=== PATIENT | female | born 1965 | race Caucasian/White ===

== ENCOUNTER 2017-09-27 13:54 | Outpatient (RCR) | payer SELFPAY | END 2017-10-21 23:59 | disposition home or self-care (01) | LOC: CR 13:54 | PROVIDERS: PCP Family Medicine; Visit Provider Family Medicine | DX: Z51.89 Encounter for other specified aftercare (principal) ==

== ENCOUNTER → 2017-10-05 00:27 | Outpatient (CLI) | payer MEDICARE, SELFPAY ==
--- NOTE | 2017-10-05 07:21 | DI.REPORT_ITS ---
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 Significant portions of the liver are nonvisualized. Liver is of increased echogenicity raising the possibility of hepatic steatosis. No focal lesion identified. Portal venous flow is normo-directional. The patient has had a previous cholecystectomy. No biliary dilatation is seen. The pancreas is not well visualized. Kidneys are grossly unremarkable in appearance. Abdominal aorta and IVC are unremarkable as visualized. CONCLUSION: Limited study. Probable hepatic steatosis. No other significant abnormality seen.
[2017-10-05 08:28] LABS: Prothrombin Time 9.9 sec (9.3-10.8)
[2017-10-05 08:41] LABS: Hemoglobin A1C 8.6 % (4.5-6.2)
[2017-10-05 09:24] LABS: ALT 38 U/L (12-78); AST 34 U/L (15-37); Albumin 3.7 g/dL (3.4-5.0); Alkaline Phosphatase 105 U/L (46-116); Anion Gap 12.4 mmol/L (3-11); BUN 8 mg/dL (7-18); Bilirubin, Direct 0.13 mg/dL (0.00-0.20); Bilirubin, Total 0.5 mg/dL (0.2-1.0); CO2 25.6 mmol/L (21.0-32.0); CREATININE 1.11 mg/dL (0.55-1.02); Calcium 9.2 mg/dL (8.5-10.1); Chloride 103 mmol/L (98-107); Estimated GFR 51.82 (mL/min/1.73m2); Glucose 145 mg/dL (70-100); Potassium 4.2 mmol/L (3.5-5.1); Sodium 141 mmol/L (136-145); Total Protein 6.8 g/dL (6.4-8.2)
[2017-10-07 11:19] LABS: AFP Tumor Marker <2.0 ng/mL (<8.1)
== END ==
PROVIDERS: PCP Family Medicine; Visit Provider Internal Medicine Gastroenterology
DX: E11.9 Type 2 diabetes mellitus without complications (principal); K74.60 Unspecified cirrhosis of liver; K76.0 Fatty (change of) liver, not elsewhere classified; R94.5 Abnormal results of liver function studies
CPT/HCPCS: 76700; 36415; 80048; 80076; 82105; 83036; 85610

== ENCOUNTER 2017-10-24 14:40 | Outpatient (RCR) | payer SELFPAY | END 2017-11-20 23:59 | disposition home or self-care (01) | LOC: CR 14:40 | PROVIDERS: PCP Family Medicine; Visit Provider Family Medicine | DX: Z51.89 Encounter for other specified aftercare (principal) ==

== ENCOUNTER 2017-11-21 14:37 | Outpatient (RCR) | payer SELFPAY | END 2017-12-21 23:59 | disposition home or self-care (01) | LOC: CR 14:37 | PROVIDERS: PCP Family Medicine; Visit Provider Family Medicine | DX: Z51.89 Encounter for other specified aftercare (principal) ==

== ENCOUNTER 2017-12-22 05:14 | Outpatient (RCR) | payer SELFPAY | END 2018-01-20 23:59 | disposition home or self-care (01) | LOC: CR 05:14 | PROVIDERS: PCP Family Medicine; Visit Provider Family Medicine | DX: Z51.89 Encounter for other specified aftercare (principal) ==

== ENCOUNTER 2017-12-30 07:58 | Outpatient (CLI) | payer MEDICARE, SELFPAY ==
[2017-12-30 09:36] LABS: Hemoglobin A1C 7.7 % (4.5-6.2)
== END 2017-12-30 08:18 ==
PROVIDERS: PCP Family Medicine; Visit Provider Family Medicine
DX: E11.9 Type 2 diabetes mellitus without complications (principal)
CPT/HCPCS: 36415; 83036

== ENCOUNTER 2018-01-06 09:19 | Outpatient (RCR) | payer MEDICARE, SELFPAY ==
--- NOTE | 2018-01-06 09:23 | COCO.CNN ---
Primary Reason for Visit Financial Referral to Care Coordination Referral to Care Coordination: No Referral to Services: Yes Where and Who: [facility]/ [employer] - Referral From Referral From: Self Care Plan - Plan of Care Assessment/Background: Patient walk into [email or web address] for financial support. Connected with [facility] [employer] also. Supported paient in completing [employer] release/forms. Discussion included patient connecting with [employer] for further supports. [employer] release completed. Plan of Care: Sun plans on presenting patient at [employer]. Patient plans to connect with [employer] on [employer] and notify them that S[employer] has completed [employer] release/forms and plans to present.
--- NOTE | 2018-01-06 10:18 | PDOC.CNN_ITS ---
Primary Reason for Visit Financial Referral to Care Coordination Referral to Care Coordination: No Referral to Services: Yes Where and Who: on license of [facility]/ [employer] - Referral From Referral From: Self Care Plan - Plan of Care Assessment/Background: Patient walk into [employer] for financial support. Connected with [facility] [employer] also. Supported paient in completing [employer] release/ forms. Discussion included patient connecting with [employer] for further supports. [employer] release completed. Plan of Care: Sun plans on presenting patient at [employer]. Patient plans to connect with [employer] [facility] [employer] and notify them that S[employer]HIR has completed [employer] release/forms and plans to present.
== END 2018-01-20 23:59 | disposition home or self-care (01) ==
LOC: COCO 09:19
PROVIDERS: PCP Family Medicine; Visit Provider Family Medicine
DX: R69 Illness, unspecified (principal)

== ENCOUNTER 2018-01-21 04:23 | Outpatient (RCR) | payer SELFPAY ==
--- NOTE | 2018-02-11 10:21 | PR3E_ITS ---
52 year old female who joined the maintenance phase of pulmonary rehabilitation after completing the phase 2 program in December 2016. The patient came from December 2016- September 2017. Attempt to reach patient for follow up was unsuccessful. Will assist patient in re-enrolling in the program and obtaining proper referrals in the future should she want to return.
== END 2018-02-20 23:59 ==
LOC: CR 04:23
PROVIDERS: PCP Family Medicine; Visit Provider Family Medicine
DX: Z51.89 Encounter for other specified aftercare (principal)

== ENCOUNTER 2018-03-07 00:14 | Outpatient (CLI) | payer MEDICARE, MEDICAID, SELFPAY ==
[2018-03-07 08:45] LABS: Hemoglobin A1C 7.8 % (4.5-6.2)
--- NOTE | 2018-03-07 09:10 | DI.US_ITS ---
SYMPTOM/DIAGNOSIS: F/U CIRRHOSIS, K74.60 AND ABNL LIVER FUNCTION STUDY, R94.5 ABDOMEN ULTRASOUND: Comparison is made with 10/05/17. The liver measures 15 cm. in length, decreasing when compared with the previous exam. The liver now shows only slight increased echogenicity, with improvement when compared with the previous exam. No focal liver lesions or biliary dilatation is seen. The patient is status post cholecystectomy. The spleen, kidneys and aorta are unremarkable. No ascites is seen. IMPRESSION: Mild fatty infiltration of the liver with some improvement when compared with 09/2017.
[2018-03-07 09:43] LABS: ALT 28 U/L (12-78); AST 23 U/L (15-37); Albumin 3.8 g/dL (3.4-5.0); Alkaline Phosphatase 128 U/L (46-116); Anion Gap 11.8 mmol/L (3-11); BUN 11 mg/dL (7-18); Bilirubin, Direct 0.12 mg/dL (0.00-0.20); Bilirubin, Total 0.5 mg/dL (0.2-1.0); CO2 28.2 mmol/L (21.0-32.0); Chloride 101 mmol/L (98-107); Estimated GFR 47.36 (mL/min/1.73m2); Glucose 142 mg/dL (70-100); Potassium 4.7 mmol/L (3.5-5.1); Sodium 141 mmol/L (136-145); Total Protein 7.1 g/dL (6.4-8.2)
[2018-03-07 09:52] LABS: GGT 64 U/L (5-55)
[2018-03-08 15:39] LABS: AFP Tumor Marker 3.5 ng/mL (<8.1)
== END 2018-03-07 00:34 ==
PROVIDERS: PCP Family Medicine; Visit Provider Internal Medicine Gastroenterology
DX: E11.9 Type 2 diabetes mellitus without complications (principal); K74.60 Unspecified cirrhosis of liver; R94.5 Abnormal results of liver function studies; K76.0 Fatty (change of) liver, not elsewhere classified
CPT/HCPCS: 36415; 80048; 80076; 76700; 82105; 82977; 83036

== ENCOUNTER 2018-04-11 18:37 | Outpatient (CLI) | payer MEDICARE, MEDICAID, SELFPAY ==
--- NOTE | 2018-04-11 12:15 | DI.RAD_ITS ---
SYMPTOM/DIAGNOSIS: URI, ? PNEUMONIA FRONTAL AND LATERAL CHEST: Comparison is made with 05/15/17. Heart size and pulmonary vasculature are within normal limits. Sternal wires are in place. The lungs are clear. No effusions or pneumothoraces are identified. Degenerative changes are seen in the spine. IMPRESSION: No acute pulmonary process.
== END 2018-04-11 18:57 ==
PROVIDERS: PCP Family Medicine; Visit Provider Family Medicine
DX: J06.9 Acute upper respiratory infection, unspecified (principal)
CPT/HCPCS: 71046

== ENCOUNTER 2018-04-26 14:40 | Outpatient (CLI) | payer MEDICARE, MEDICAID, SELFPAY ==
--- NOTE | 2018-04-26 15:45 | DI.RAD_ITS ---
SYMPTOM/DIAGNOSIS: LLQ PAIN, CIRRHOSIS OF LIVER, R10.32, K74.60 FLAT AND UPRIGHT ABDOMEN: Comparison is made with 04/11/18. The visualized lung bases are clear. Sternal wires are in place. There are surgical clips in the right upper quadrant of the abdomen. This likely reflects prior cholecystectomy. The bowel gas pattern is nonspecific. There is a normal amount of stool in the colon. No evidence of bowel obstruction is seen. No organomegaly or pneumoperitoneum is seen. No acute osseous abnormality is identified. IMPRESSION: No evidence of an acute abdomen.
== END 2018-04-26 15:00 ==
PROVIDERS: PCP Family Medicine; Visit Provider Internal Medicine Gastroenterology
DX: R10.32 Left lower quadrant pain (principal); K74.60 Unspecified cirrhosis of liver
CPT/HCPCS: 74019

== ENCOUNTER 2018-05-17 12:14 | Outpatient (RCR) | payer SELFPAY | END 2018-05-21 23:59 | disposition home or self-care (01) | LOC: CR 12:14 | PROVIDERS: PCP Family Medicine; Visit Provider Family Medicine | DX: Z51.89 Encounter for other specified aftercare (principal) ==

== ENCOUNTER 2018-05-23 09:07 | Outpatient (RCR) | payer SELFPAY ==
--- NOTE | 2018-05-23 09:09 | COCO.CNN ---
Primary Reason for Visit Medical/Dental/Vision Referral to Care Coordination Referral to Care Coordination: No Referral to Services: Yes Where and Who: PULM REHAB - Referral From Referral From: Self Care Plan - Plan of Care Assessment/Background: Completed health scholarship form for Pulmonary Rehab. Contacted Elvia in [employer] who informed me she already had 100% finacial assistance. [facility] Self Management Plan Complete?: Yes Self Management Goals: Breath better, lose weight, and feel better Confidence Level (enter 1-10): 8 Action Plan/Progress: attend Pulmonary rehab
== END 2018-06-20 23:59 | disposition home or self-care (01) ==
LOC: COCO 09:07
PROVIDERS: PCP Family Medicine; Visit Provider Family Medicine
DX: R69 Illness, unspecified (principal)

== ENCOUNTER 2018-06-13 08:58 | Outpatient (RCR) | payer SELFPAY ==
--- NOTE | 2018-06-13 08:59 | COCO.CNN ---
Primary Reason for Visit Transportation (requesting gas card) Referral to Care Coordination Referral to Care Coordination: No Referral to Services: No - Referral From Referral From: Self Care Plan - Plan of Care Assessment/Background: client was walk in to [facility]; went to [facility] appt. yesterday and requesting gas card; has had more trips to and Pul. Rehab. CHW reviewed gas cards requests. Client can request in future prior to appt and if cards are available. Plan of Care: client will ask family/ friend for assistance for this request.
--- NOTE | 2018-06-13 09:05 | PDOC.CNN_ITS ---
Primary Reason for Visit Transportation (requesting gas card) Referral to Care Coordination Referral to Care Coordination: No Referral to Services: No - Referral From Referral From: Self Care Plan - Plan of Care Assessment/Background: client was walk in to [facility]; went to [facility] appt. yesterday and requesting gas card; has had more trips to and Pul. Rehab. CHW reviewed gas cards requests. Client can request in future prior to appt and if cards are available. Plan of Care: client will ask family/ friend for assistance for this request.
== END 2018-06-20 23:59 | disposition home or self-care (01) ==
LOC: COCO 08:58
PROVIDERS: PCP Family Medicine; Visit Provider Family Medicine
DX: R69 Illness, unspecified (principal)

== ENCOUNTER 2018-06-20 11:00 | Outpatient (RCR) | payer SELFPAY ==
--- NOTE | 2018-05-23 11:00 | PR3E_ITS ---
Teresita Beltre is a 52 year old female referred to the pulmonary rehabilitation maintenance program by her primary provider, of [facility]. PMH: diabetes, obesity, liver congestion, sleep d/o, reflux, depression/anxiety, HLD, HTN, history of pericarditis, tricuspid insufficiency, asthma, and restrictive COPD. Orthopedic history: lower back discomfort, hiatal hernia, left shoulder and arm discomfort Medications:Omeprazole, Metoprolol, Escitalopram, Spironolactone, Furosemide, Trazodone, Lorazepam, Novilin, Gabapentin Patient has participated in the both the Pulmonary Rehabilitation Phase 2 program and the pulmonary rehabilitation maintenance program in the past.She presented to us on 05/23/18, completed intake assessments, reviewed and signed program consents and expectations. As she has participated previously, she also started her exercising after completing the initial intake piece of the program. Physical assessment: Alert and oriented x4, color WNL, lungs clear to air on posterior auscultation, heart sounds s1/s2 with no noted peripheral edema. Height 62 inches, weight 220 lbs, BMI 40.2. Teresita tolerated 22 minutes of exercise on her first day back. She did 5-6 minute increments on the treadmill, NuStep, stationary bike, and UBE. Her BP range with exercise was 102-117/71-81, HR 93-107, RPD 11-12, RPE 10-13, and Oxygen saturations 95-97% on room air. Will continue to progress as tolerated and encourage regular home exercise.
== END 2018-06-20 23:59 | disposition home or self-care (01) ==
LOC: CR 11:00
PROVIDERS: PCP Family Medicine; Visit Provider Family Medicine
DX: Z51.89 Encounter for other specified aftercare (principal)

== ENCOUNTER 2018-07-03 10:04 | Outpatient (CLI) | payer MEDICARE, MEDICAID, SELFPAY ==
[2018-07-03 13:15] LABS: Hemoglobin A1C 8.6 % (4.5-6.2)
== END 2018-07-03 10:24 ==
PROVIDERS: PCP Family Medicine; Visit Provider Family Medicine
DX: E11.9 Type 2 diabetes mellitus without complications (principal)
CPT/HCPCS: 36415; 83036

== ENCOUNTER 2018-07-03 14:03 | Outpatient (REF) | payer MEDICARE, MEDICAID, SELFPAY | END 2018-07-03 14:23 | LOC: LBN 14:03 | PROVIDERS: PCP Family Medicine; Visit Provider Family Medicine | DX: B37.9 Candidiasis, unspecified (principal); E11.9 Type 2 diabetes mellitus without complications; E66.01 Morbid (severe) obesity due to excess calories | CPT/HCPCS: 87480; 87510; 87660 ==

== ENCOUNTER 2018-07-13 11:00 | Outpatient (RCR) | payer SELFPAY | END 2018-07-21 23:59 | disposition home or self-care (01) | LOC: CR 11:00 | PROVIDERS: PCP Family Medicine; Visit Provider Family Medicine | DX: Z51.89 Encounter for other specified aftercare (principal) ==

== ENCOUNTER 2018-08-15 12:31 | Outpatient (RCR) | payer SELFPAY | END 2018-08-20 23:59 | disposition home or self-care (01) | LOC: CR 12:31 | PROVIDERS: PCP Family Medicine; Visit Provider Family Medicine | DX: Z51.89 Encounter for other specified aftercare (principal) ==

== ENCOUNTER 2018-08-21 14:15 | Outpatient (RCR) | payer SELFPAY | END 2018-09-20 23:59 | disposition home or self-care (01) | LOC: CR 14:15 | PROVIDERS: PCP Family Medicine; Visit Provider Family Medicine | DX: Z51.89 Encounter for other specified aftercare (principal) ==

== ENCOUNTER 2018-10-22 04:01 | Outpatient (RCR) | payer SELFPAY ==
--- NOTE | 2019-01-02 13:39 | PR3E_ITS ---
Teresita is a 53 year old female who was referred to our outpatient maintenance exercise program in May 2018 by her primary provider. Teresita participated in the program from May 2018-July 2018. After May, due to multiple circumstances, she was unable to regularly attend the program. Teresita has been a member of our program many times and we will assist her in the future with the referral process should she want to return to the program.
== END 2018-11-20 23:59 | disposition home or self-care (01) ==
LOC: CR 04:01
PROVIDERS: PCP Family Medicine; Visit Provider Family Medicine
DX: Z51.89 Encounter for other specified aftercare (principal)

== ENCOUNTER 2018-10-31 00:15 | Outpatient (CLI) | payer MEDICARE, MEDICAID, SELFPAY ==
--- NOTE | 2018-10-31 09:05 | DI.US_ITS ---
SYMPTOM/DIAGNOSIS: R94.5 ABNORMAL LFT, K74.60 CIRRHOSIS ABDOMINAL ULTRASOUND: 10/31 Hepatic parenchyma appears somewhat echogenic raising the possibility of hepatic steatosis. Gallbladder has been surgically removed. No biliary dilatation seen. Pancreas appears intact as visualized. Abdominal aorta and IVC are of normal diameter. Kidneys and spleen are unremarkable. No urinary tract calcification or obstruction. CONCLUSION: Question hepatic steatosis. Otherwise, unremarkable abdominal ultrasound post cholecystectomy.
[2018-10-31 09:14] LABS: Hemoglobin A1C 7.9 % (4.5-6.2)
[2018-10-31 10:26] LABS: Abs Immature Grans 0.02 k/cumm (0.0-0.09); Absolute Basophil Count 0.01 k/cumm (0.0-0.2); Absolute Eosinophil Count 0.14 k/cumm (0.0-0.7); Absolute Lymphocyte Count 2.82 k/cumm (1.2-3.4); Absolute Monocyte Count 0.65 k/cumm (0.11-0.7); Absolute Neutrophil Count 6.38 k/cumm (1.2-6.7); Basophils % 0.1; Eosinophils % 1.4; HCT 47.3 % (36.0-46.0); HGB 15.6 g/dL (12.0-15.5); Immature Grans % 0.2; Lymphocytes % 28.1; Mean Corpuscular Hemoglobin 27.9 pg (27.0-33.0); Mean Corpuscular Volume 84.5 fL (80-95); Mean Platelet Volume 10.8 fL (8.0-11.0); Monocytes % 6.5; Neutrophils % 63.7; Platelet Count 385 x1000/uL (130-400); RBC Distribution Width 15.4 % (11.7-14.6); White Blood Cell Count 10.02 k/cumm (4.4-10.8)
[2018-10-31 10:29] LABS: ALT 19 U/L (14-59); AST 16 U/L (15-37); Albumin 3.6 g/dL (3.4-5.0); Alkaline Phosphatase 137 U/L (46-116); Anion Gap 10.1 mmol/L (3-11); BUN 11 mg/dL (7-18); Bilirubin, Total 0.6 mg/dL (0.2-1.0); CO2 26.9 mmol/L (21.0-32.0); CREATININE 1.19 mg/dL (0.55-1.02); Calcium 8.9 mg/dL (8.5-10.1); Chloride 103 mmol/L (98-107); Estimated GFR 47.63 (mL/min/1.73m2); Glucose 111 mg/dL (70-100); PHOSPHORUS 4.6 mg/dL (2.6-4.7); Potassium 4.7 mmol/L (3.5-5.1); Sodium 140 mmol/L (136-145); Total Protein 6.9 g/dL (6.4-8.2)
== END 2018-10-31 00:35 ==
PROVIDERS: Internal Medicine Gastroenterology; PCP Family Medicine; Visit Provider Family Medicine
DX: E11.9 Type 2 diabetes mellitus without complications (principal); K74.60 Unspecified cirrhosis of liver; R94.5 Abnormal results of liver function studies; K76.89 Other specified diseases of liver
CPT/HCPCS: 36415; 80069; 80076; 76700; 83036; 85025

== ENCOUNTER 2019-01-30 15:35 | Outpatient (REF) | payer MEDICARE, MEDICAID, SELFPAY ==
--- NOTE | 2019-01-30 14:30 | PAPFT_PTH ---
PATIENT: Teresita Fernández LOC: [facility] U#:[id number] AGE/SX: 53/F ROOM: RE01/30/[address]: Bernadette Childs MD, DC : 1965 BED: DIS: 01/30/2019 SPEC #: [id number] RECD: 01/30/19 18:34 STATUS: JAVIER REQ #: [id number] ALIX: 01/30/19 14:[address]: Bernadette Childs DEPT: [facility] Cytology RECD BY: Gabrielle Hamm Tissues: 1 - CX/ENDOCX FOR PAP SMEARS Procedures: PAP THIN PREP/UVM Screening HPV DNA PROBE Comments: [id number]
== END 2019-01-30 15:55 ==
LOC: LBN 15:35
PROVIDERS: PCP Family Medicine; Visit Provider Family Medicine
DX: Z12.4 Encounter for screening for malignant neoplasm of cervix (principal)
CPT/HCPCS: 88142; 87624

== ENCOUNTER 2019-02-22 01:43 | Outpatient (CLI) | payer MEDICARE, MEDICAID, SELFPAY ==
--- NOTE | 2019-02-22 11:44 | DI.MAMMO_ITS ---
EXAM: MG MAMMO SCREENING CLINICAL HISTORY: screening Z12.39 TECHNIQUE: Mammograms were interpreted according to the usual protocol including computer analysis w [employer] CAD system, tomosynthesis and C-view imaging. COMPARISON: FINDINGS: Breasts are of moderate density with fairly symmetrical distribution of fibroglandular tissue. No do minant mass or clumped microcalcification is identified in either breast. Current examination is com pared with previous examinations including August 2017 and there has been no gross interval change in a ppearance in comparison with the previous studies. IMPRESSION: No specific evidence of malignancy at this time. Routine screening examinations are suggested at yea rly intervals in this age group according to the ACS ACR guidelines. Category 1 breast density category B
[2019-02-22 12:11] LABS: HCT 47.6 % (36.0-46.0); HGB 15.9 g/dL (12.0-15.5); Mean Corp. HGB Concentration 33.4 g/dL (32.0-36.0); Mean Corpuscular Hemoglobin 28.2 pg (27.0-33.0); Mean Corpuscular Volume 84.4 fL (80-95); Mean Platelet Volume 10.2 fL (8.0-11.0); Platelet Count 451 x1000/uL (130-400); RBC 5.64 m/cumm (4.00-5.20); RBC Distribution Width 15.6 % (11.7-14.6); White Blood Cell Count 11.57 k/cumm (4.4-10.8)
[2019-02-22 12:22] LABS: Hemoglobin A1C 8.6 % (3.8-5.6)
[2019-02-22 12:37] LABS: ALT 19 U/L (14-59); AST 17 U/L (15-37); Albumin 3.8 g/dL (3.4-5.0); Alkaline Phosphatase 137 U/L (46-116); Anion Gap 10.6 mmol/L (3-11); BUN 12 mg/dL (7-18); Bilirubin, Total 0.4 mg/dL (0.2-1.0); CO2 28.4 mmol/L (21.0-32.0); Calcium 9.8 mg/dL (8.5-10.1); Chloride 100 mmol/L (98-107); Estimated GFR 47.18 (mL/min/1.73m2); Glucose 163 mg/dL (74-106); Potassium 4.9 mmol/L (3.5-5.1); Sodium 139 mmol/L (136-145); Total Protein 7.4 g/dL (6.4-8.2)
[2019-02-22 14:28] LABS: Iron 55 ug/dL (50-170)
[2019-02-22 14:54] LABS: Ferritin 165 ng/mL (8-252)
[2019-03-02 10:01] LABS: Result Summary NEGATIVE; Specimen WB Whole Blood
== END 2019-02-22 02:03 ==
PROVIDERS: PCP Family Medicine; Visit Provider Family Medicine
DX: Z12.31 Encounter for screening mammogram for malignant neoplasm of breast (principal); D64.9 Anemia, unspecified; E11.9 Type 2 diabetes mellitus without complications; E87.5 Hyperkalemia; J45.909 Unspecified asthma, uncomplicated; R71.8 Other abnormality of red blood cells; D72.829 Elevated white blood cell count, unspecified
CPT/HCPCS: 36415; 77063; 77067; 80053; 85027; 81256; 82728; 83036; 83540

== ENCOUNTER 2019-03-13 02:32 | Outpatient (CLI) | payer MEDICARE, MEDICAID, SELFPAY ==
--- NOTE | 2019-03-13 | PFT_ITS ---
PULMONARY FUNCTION TEST REPORT Patient - Teresita Fernández DATE OF SERVICE March 13, 2019 REQUESTING PROVIDER Bernadette Childs M.D. INTERPRETATION OF STUDY Spirometry shows no evidence of obstructive airways disease. No bronchodilator response. LUNG VOLUMES - Lung volumes mild restriction. DIFFUSION CAPACITY- Mildly reduced, which is normal when corrected to alveolar volume. AIRWAY RESISTANCE - Elevated. IMPRESSION Mild restrictive lung disease associated with mild diffusion defect. Clinical correlation recommended. When this study was compared to previous one from 03/02/2016, the patient has a slight 150 cc improvement in FVC. FEV1 has also improved by 170 cc. Diffusion capacity also has improved. Chelsea Nichols M.D. Elizabeth T- 03/14/19
[2019-03-13] MEDS: Albuterol HFA 18 GM 200 PUFF INH IH (15:18)
[2019-03-13] MEDS: Inhaler, Assist Device 1 EACH MC (15:18)
== END 2019-03-13 02:52 ==
PROVIDERS: PCP Family Medicine; Visit Provider Family Medicine
DX: R06.02 Shortness of breath (principal); J98.4 Other disorders of lung
CPT/HCPCS: 94060; 94150; 94726; 94729

== ENCOUNTER 2019-04-20 10:47 | Outpatient (REF) | payer MEDICARE, MEDICAID, SELFPAY ==
[2019-04-21 11:34] LABS: HSV 1 DNA Result Positive (Negative); HSV 2 DNA Result Negative (Negative)
== END 2019-04-20 11:07 ==
LOC: LBN 10:47
PROVIDERS: PCP Family Medicine; Visit Provider Nurse Practitioner
DX: B00.1 Herpesviral vesicular dermatitis (principal)
CPT/HCPCS: 87529

== ENCOUNTER 2019-04-24 01:44 | Outpatient (CLI) | payer MEDICARE, MEDICAID, SELFPAY ==
--- NOTE | 2019-04-24 | DI.US_ITS ---
EXAM: US ABDOMEN CLINICAL HISTORY: ABNL RESULTS OF LFT, CIRRHOSIS LIVER, R94.5, K74.60 TECHNIQUE: Ultrasound performed using standard protocol. COMPARISON: No exams were available for comparison FINDINGS: The liver is normal in size but shows mildly increased echogenicity consistent with fatty infiltratio n. No focal masses are identified. There is no biliary dilatation. The aorta, spleen, kidneys and pancreas are unremarkable. There is no ascites. Patient is again noted to be status post cholecyste ctomy. IMPRESSION: Stable appearance of mildly increased liver echogenicity. DATA REPOSITORY:
[2019-04-24 10:22] LABS: Abs Immature Grans 0.02 k/cumm (0.0-0.09); Absolute Basophil Count 0.03 k/cumm (0.0-0.2); Absolute Eosinophil Count 0.19 k/cumm (0.0-0.7); Absolute Lymphocyte Count 3.62 k/cumm (1.2-3.4); Absolute Monocyte Count 0.72 k/cumm (0.11-0.7); Basophils % 0.3; Eosinophils % 1.9; HCT 43.2 % (36.0-46.0); HGB 14.5 g/dL (12.0-15.5); Immature Grans % 0.2 %; Lymphocytes % 35.6; Mean Corp. HGB Concentration 33.6 g/dL (32.0-36.0); Mean Corpuscular Hemoglobin 29.1 pg (27.0-33.0); Mean Corpuscular Volume 86.6 fL (80-95); Mean Platelet Volume 10.2 fL (8.0-11.0); Monocytes % 7.1; Neutrophils % 54.9; Platelet Count 381 x1000/uL (130-400); RBC 4.99 m/cumm (4.00-5.20); RBC Distribution Width 15.9 % (11.7-14.6); White Blood Cell Count 10.18 k/cumm (4.4-10.8)
[2019-04-24 10:44] LABS: Prothrombin Time 10.1 sec (9.3-11.0)
[2019-04-24 10:47] LABS: Hemoglobin A1C 7.8 % (3.8-5.6)
[2019-04-24 11:16] LABS: ALT 21 U/L (14-59); AST 19 U/L (15-37); Albumin 3.6 g/dL (3.4-5.0); Alkaline Phosphatase 115 U/L (46-116); Anion Gap 9.1 mmol/L (3-11); BUN 14 mg/dL (7-18); Bilirubin, Direct 0.07 mg/dL (0.00-0.20); Bilirubin, Total 0.3 mg/dL (0.2-1.0); CO2 26.9 mmol/L (21.0-32.0); CREATININE 1.14 mg/dL (0.55-1.02); Calcium 8.8 mg/dL (8.5-10.1); Chloride 104 mmol/L (98-107); Estimated GFR 50.05 (mL/min/1.73m2); Glucose 98 mg/dL (74-106); PHOSPHORUS 3.3 mg/dL (2.6-4.7); Potassium 4.8 mmol/L (3.5-5.1); Sodium 140 mmol/L (136-145); Total Protein 6.7 g/dL (6.4-8.2)
[2019-04-25 10:35] LABS: AFP Tumor Marker <2.5 ng/mL (<8.1)
== END 2019-04-24 02:04 ==
PROVIDERS: PCP Family Medicine; Visit Provider Internal Medicine Gastroenterology
DX: K74.60 Unspecified cirrhosis of liver (principal); K76.0 Fatty (change of) liver, not elsewhere classified; R94.5 Abnormal results of liver function studies; E11.9 Type 2 diabetes mellitus without complications
CPT/HCPCS: 36415; 80069; 80076; 76700; 82105; 83036; 85025; 85610

== ENCOUNTER 2019-08-28 16:32 | Outpatient (REF) | payer MEDICARE, MEDICAID, SELFPAY ==
[2019-08-28 14:23] LABS: Hemoglobin A1C 8.1 % (3.8-5.6)
[2019-08-28 14:30] LABS: Calculated LDL 139 mg/dL (<100); Cholesterol 250 mg/dL (<200); HDL Cholesterol 36 mg/dL (40-60); TSH (W/Ref FT4) 1.17 uIU/mL (0.36-3.74); Triglyceride 378 mg/dL (<150)
[2019-08-28 15:20] LABS: COMMENT (LAB VIEW ONLY) 16.73 mg/dL; Microalb ug/mg Crea 19.1 ug/mg Cr
== END 2019-08-28 16:52 ==
LOC: LBN 16:32
PROVIDERS: PCP Family Medicine; Visit Provider Family Medicine
DX: E11.9 Type 2 diabetes mellitus without complications (principal); K76.1 Chronic passive congestion of liver; F41.9 Anxiety disorder, unspecified
CPT/HCPCS: 80061; 82043; 82570; 83036; 84443

== ENCOUNTER 2019-11-05 00:52 | Outpatient (CLI) | payer MEDICARE, MEDICAID, SELFPAY ==
--- NOTE | 2019-11-05 | DI.US_ITS ---
EXAM: US ABDOMEN CLINICAL HISTORY: F/U CIRRHOSIS OF LIVER,K74.60 TECHNIQUE: Ultrasound performed using standard protocol. COMPARISON: US US ABDOMEN from 04/24/2019 FINDINGS: Abdominal ultrasound was performed according to the usual protocol. The liver is of increased echoge nicity and shows somewhat coarse echotexture suggesting hepatic steatosis. Significant portions of t he liver are nonvisualized due to the patient's body habitus and poor through transmission. Gallbladder is been surgically removed. No biliary dilatation. Pancreas appears intact as visualize d. Abdominal aorta and IVC are diameter. The kidneys are unremarkable in appearance with no hydronephrosis or nephrolithiasis. IMPRESSION: Probable hepatic steatosis. Examination is otherwise unremarkable in a patient who is status post ch olecystectomy. DATA REPOSITORY:
== END 2019-11-05 01:12 ==
PROVIDERS: PCP Family Medicine; Visit Provider Internal Medicine Gastroenterology
DX: K74.69 Other cirrhosis of liver (principal)
CPT/HCPCS: 76700

== ENCOUNTER 2019-11-05 03:25 | Outpatient (CLI) | payer MEDICARE, MEDICAID, SELFPAY ==
[2019-11-05 09:35] LABS: ALT 20 U/L (14-59); AST 14 U/L (15-37); Albumin 3.3 g/dL (3.4-5.0); Alkaline Phosphatase 119 U/L (46-116); Anion Gap 10.2 mmol/L (3-11); BUN 13 mg/dL (7-18); Bilirubin, Direct 0.07 mg/dL (0.00-0.20); Bilirubin, Total 0.3 mg/dL (0.2-1.0); CO2 23.8 mmol/L (21.0-32.0); CREATININE 1.07 mg/dL (0.55-1.02); Calcium 8.8 mg/dL (8.5-10.1); Chloride 102 mmol/L (98-107); Estimated GFR 53.64 (mL/min/1.73m2); Glucose 222 mg/dL (74-106); Sodium 136 mmol/L (136-145); Total Protein 6.5 g/dL (6.4-8.2)
[2019-11-05 09:40] LABS: GGT 61 U/L (5-55)
== END 2019-11-05 03:45 ==
PROVIDERS: PCP Family Medicine; Visit Provider Internal Medicine Gastroenterology
DX: K74.60 Unspecified cirrhosis of liver (principal)
CPT/HCPCS: 36415; 80048; 80076; 76700; 82977; 85610

== ENCOUNTER 2019-11-06 09:42 | Outpatient (CLI) | payer MEDICARE, MEDICAID, SELFPAY ==
[2019-11-06 10:36] LABS: Abs Immature Grans 0.03 10^3/uL (0.0-0.06); Absolute Basophil Count 0.04 10^3/uL (0.0-0.2); Absolute Eosinophil Count 0.17 10^3/uL (0.0-0.7); Absolute Lymphocyte Count 3.21 10^3/uL (1.2-3.4); Absolute Monocyte Count 0.54 10^3/uL (0.1-0.8); Absolute Neutrophil Count 5.36 10^3/uL (1.2-6.7); Basophils % 0.4; Eosinophils % 1.8; HCT 44.5 % (36.0-46.0); HGB 14.4 g/dL (11.2-15.7); Immature Grans % 0.3; Lymphocytes % 34.3; MCH 28.7 pg (27.0-33.0); MCHC 32.4 % (32.0-36.0); MCV 88.6 fL (80-95); MPV 10.3 fL (8.0-11.0); Monocytes % 5.8; Neutrophils % 57.4; Nucleated RBC 0 %; Platelet Count 321 10^3/uL (130-400); RBC 5.02 10^6/uL (3.93-5.22); RDW 14.8 % (11.7-14.6); RDW-SD 48.1 fL; WBC 9.35 10^3/uL (4.4-10.8)
== END 2019-11-06 10:02 ==
PROVIDERS: Internal Medicine Gastroenterology; PCP Family Medicine; Visit Provider Family Medicine
DX: K74.60 Unspecified cirrhosis of liver (principal)
CPT/HCPCS: 36415; 85025

== ENCOUNTER 2020-03-28 19:44 | Outpatient (REF) | payer MEDICARE, MEDICAID, SELFPAY ==
[2020-03-31 16:24] LABS: COVID-19 RT-PCR UVMMC Result Negative (Negative)
== END 2020-03-28 19:45 | disposition home or self-care (01) ==
LOC: LBN 19:44
PROVIDERS: PCP Family Medicine; Visit Provider Nurse Practitioner Adult Health
DX: Z20.822 Contact with and (suspected) exposure to COVID-19 (principal); R09.81 Nasal congestion; J34.89 Other specified disorders of nose and nasal sinuses
CPT/HCPCS: U0003

== ENCOUNTER 2020-05-06 01:37 | Outpatient (CLI) | payer MEDICARE, MEDICAID, SELFPAY ==
--- NOTE | 2020-05-06 | DI.US_ITS ---
EXAM: US ABDOMEN INDICATION: F/U CIRRHOSIS OF LIVER, K74.60 COMPARISON: US US ABDOMEN from 11/05/2019 TECHNIQUE: Ultrasound abdomen performed using standard protocol FINDINGS: Abdominal ultrasound was performed according to the usual protocol. The liver is normal in size and shape. No focal hepatic lesion seen. There may be mild increased ech ogenicity of the hepatic parenchyma suggesting hepatic steatosis. Gallbladder has been surgically removed. There is no evidence of biliary dilatation. Pancreas appears intact as visualized. Spleen is unremarkable in appearance with no focal lesion. Kidneys are normal in size and shape. No renal mass, hydronephrosis, or nephrolithiasis. Abdominal aorta and IVC are of normal diameter. IMPRESSION: Negative abdominal ultrasound .
== END 2020-05-06 01:57 ==
PROVIDERS: PCP Family Medicine; Visit Provider Internal Medicine Gastroenterology
DX: K74.60 Unspecified cirrhosis of liver (principal); Z12.31 Encounter for screening mammogram for malignant neoplasm of breast
CPT/HCPCS: 76700

== ENCOUNTER 2020-05-06 01:38 | Outpatient (CLI) | payer MEDICARE, MEDICAID, SELFPAY ==
--- NOTE | 2020-05-06 08:47 | DI.MAMMO_ITS ---
EXAM: MAMMO SCREENING CLINICAL HISTORY: screening,Z12.39 TECHNIQUE: Mammograms were interpreted according to the usual protocol including computer analysis w [employer] CAD system, tomosynthesis and C-view imaging. COMPARISON: FINDINGS: The breasts are of moderate density with fairly symmetrical distribution of fibroglandular tissue. N o dominant mass or clumped microcalcification is identified in either breast. The current examinatio n is compared with previous examinations including February 2019 and there has been no gross interval change in appearance in comparison with the prior studies. IMPRESSION: No specific evidence of malignancy at this time. Routine screening examinations are suggested at ye qi intervals in this age group according to the ACS ACR guidelines. BI-RADS Category 1 - Negative Breast Density - Category B - Scattered areas of fibroglandular density
== END 2020-05-06 01:58 ==
PROVIDERS: PCP Family Medicine; Visit Provider Family Medicine
DX: Z12.31 Encounter for screening mammogram for malignant neoplasm of breast (principal); E11.9 Type 2 diabetes mellitus without complications; I10 Essential (primary) hypertension; K74.60 Unspecified cirrhosis of liver
CPT/HCPCS: 36415; 77063; 77067; 80053; 85027; 76700; 82105; 82977; 83036; 85610

== ENCOUNTER 2020-05-06 02:49 | Outpatient (CLI) | payer MEDICARE, MEDICAID, SELFPAY ==
[2020-05-06 08:40] LABS: HCT 49.7 % (36.0-46.0); HGB 16.3 g/dL (11.2-15.7); MCHC 32.8 % (32.0-36.0); MCV 85.4 fL (80-95); Platelet Count 403 10^3/uL (130-400); RBC 5.82 10^6/uL (3.93-5.22); RDW 17.2 % (11.7-14.6); RDW-SD 52.3 fL; WBC 13.59 10^3/uL (4.4-10.8)
[2020-05-06 08:57] LABS: Prothrombin Time 10.1 sec (9.3-11.0)
[2020-05-06 08:59] LABS: Hemoglobin A1C 8.6 % (<5.7)
[2020-05-06 09:40] LABS: ALT 26 U/L (14-59); AST 17 U/L (15-37); Albumin 3.5 g/dL (3.4-5.0); Alkaline Phosphatase 153 U/L (46-116); Anion Gap 10.8 mmol/L (3-11); BUN 25 mg/dL (7-18); Bilirubin, Total 0.4 mg/dL (0.2-1.0); CO2 24.2 mmol/L (21.0-32.0); Calcium 8.7 mg/dL (8.5-10.1); Chloride 102 mmol/L (98-107); Glucose 221 mg/dL (74-106); Potassium 4.8 mmol/L (3.5-5.1); Sodium 137 mmol/L (136-145)
[2020-05-06 13:42] LABS: GGT 72 U/L (5-55)
[2020-05-07 09:35] LABS: AFP Tumor Marker <2.5 ng/mL (<8.1)
== END 2020-05-06 02:50 | disposition home or self-care (01) ==
LOC: LBO 02:49
PROVIDERS: PCP Family Medicine; Visit Provider Internal Medicine Gastroenterology
DX: E11.9 Type 2 diabetes mellitus without complications (principal); I10 Essential (primary) hypertension; K74.60 Unspecified cirrhosis of liver
CPT/HCPCS: 36415; 80053; 80076; 85027; 82105; 82977; 83036; 85610

== ENCOUNTER 2020-07-17 16:21 | Outpatient (REF) | payer MEDICARE, MEDICAID, SELFPAY ==
[2020-07-17 21:20] LABS: Abs Immature Grans 0.03 10^3/uL (0.0-0.06); Absolute Basophil Count 0.06 10^3/uL (0.0-0.2); Absolute Eosinophil Count 0.25 10^3/uL (0.0-0.7); Absolute Lymphocyte Count 3.88 10^3/uL (1.2-3.4); Absolute Monocyte Count 0.69 10^3/uL (0.1-0.8); Absolute Neutrophil Count 5.78 10^3/uL (1.2-6.7); Basophils % 0.6; Eosinophils % 2.3; HCT 48.4 % (36.0-46.0); HGB 16.1 g/dL (11.2-15.7); Immature Grans % 0.3; Lymphocytes % 36.3; MCH 27.2 pg (27.0-33.0); MCHC 33.3 % (32.0-36.0); MCV 81.9 fL (80-95); Monocytes % 6.5; Nucleated RBC 0 %; Platelet Count 426 10^3/uL (130-400); RBC 5.91 10^6/uL (3.93-5.22); RDW 16.1 % (11.7-14.6); RDW-SD 47.8 fL; WBC 10.69 10^3/uL (4.4-10.8)
[2020-07-17 21:30] LABS: Iron 52 ug/dL (50-170)
[2020-07-17 22:09] LABS: ALT 34 U/L (14-59); AST 21 U/L (15-37); Albumin 3.9 g/dL (3.4-5.0); Alkaline Phosphatase 139 U/L (46-116); Anion Gap 11.1 mmol/L (3-11); BUN 17 mg/dL (7-18); Bilirubin, Total 0.4 mg/dL (0.2-1.0); CO2 25.9 mmol/L (21.0-32.0); CREATININE 1.1 mg/dL (0.55-1.02); Calcium 9.6 mg/dL (8.5-10.1); Calculated LDL 177 mg/dL (<100); Chloride 103 mmol/L (98-107); Cholesterol 264 mg/dL (<200); Estimated GFR 51.76 (mL/min/1.73m2); Ferritin 88 ng/mL (8-252); GGT 66 U/L (5-55); Glucose 159 mg/dL (74-106); HDL Cholesterol 37 mg/dL (40-60); Magnesium 1.9 mg/dL (1.8-2.4); Potassium 4.8 mmol/L (3.5-5.1); Sodium 140 mmol/L (136-145); TSH (W/Ref FT4) 0.84 uIU/mL (0.36-3.74); Total Protein 7.2 g/dL (6.4-8.2); Triglyceride 252 mg/dL (<150); Vitamin B12 347 pg/mL (193-986)
== END 2020-07-17 16:22 | disposition home or self-care (01) ==
LOC: NCHCN 16:21
PROVIDERS: Visit Provider Nurse Practitioner Family
DX: R35.0 Frequency of micturition (principal); E78.5 Hyperlipidemia, unspecified; D64.9 Anemia, unspecified; R74.8 Abnormal levels of other serum enzymes; Z86.39 Personal history of other endocrine, nutritional and metabolic disease
CPT/HCPCS: 80053; 80061; 82607; 82728; 82977; 83540; 83735; 84443; 85025; 87086

== ENCOUNTER 2020-07-28 18:05 | Outpatient (REF) | payer MEDICARE, MEDICAID, SELFPAY ==
[2020-07-31 19:00] LABS: JAK2 Result see interpretation
== END 2020-07-28 18:06 | disposition home or self-care (01) ==
LOC: NCHCN 18:05
PROVIDERS: Visit Provider Nurse Practitioner Family
DX: D75.1 Secondary polycythemia (principal)
CPT/HCPCS: 81270

== ENCOUNTER 2020-09-05 13:13 | Outpatient (REF) | payer MEDICARE, MEDICAID, SELFPAY ==
[2020-09-07 11:02] LABS: COVID-19 RT-PCR UVMMC Result Negative (Negative)
== END 2020-09-05 13:14 | disposition home or self-care (01) ==
LOC: NCHCN 13:13
PROVIDERS: Visit Provider Nurse Practitioner Family
DX: R05 Cough (principal); Z20.822 Contact with and (suspected) exposure to COVID-19
CPT/HCPCS: U0003

== ENCOUNTER 2020-09-18 03:48 | Outpatient (CLI) | payer MEDICARE, MEDICAID, SELFPAY ==
--- NOTE | 2020-09-18 11:32 | DI.RAD_ITS ---
Exam(s) XR CHEST 2V PA LATERAL EXAM: XR CHEST 2V PA LATERAL CLINICAL HISTORY: COUGH,R05,REISTRICTIVE LUNG DISEASE,J98.4,CHRONIC DIASTOLIC HEART FAILURE,. TECHNIQUE: 2D digital imaging was performed. COMPARISON: CR CHEST 2 VIEWS PA,LAT from 05/15/2017 CR CHEST 2 VIEWS PA,LAT from 05/15/2017 CR XR CHEST 2V PA LATERAL from 04/11/2018 FINDINGS: Again noted are sternotomy wires. Heart size is unchanged, upper normal. Right lung is clear. There is platelike atelectasis in the left lower lobe retrocardiac region again noted, unchanged. This is also unchanged from April 2017. No pleural effusions. No pulmonary edema. IMPRESSION: Stable platelike atelectasis or scarring in the left lung base, unchanged from at least April 2017.No new pulmonary findings. Sternotomy wires again noted. DATA REPOSITORY: RADIATION DOSE DELIVERED:
[2020-09-18] MEDS: Inhaler, Assist Device 1 EACH MC (11:37)
[2020-09-18] MEDS: Albuterol HFA 18 GM 200 PUFF INH IH (11:37)
--- NOTE | 2020-09-19 14:17 | W.PFT ---
Date of service: 09/18/20 Time of Service: 10:05 Pulmonary Function Test Result Requesting Provider Noemi Sharma Interpretation Spirometry: There is no airflow limitation. There is no significant bronchodilator response. There is restrictive pattern spirometry. Lung Volumes: All lung volumes are within normal limits. Diffusion Capacity: There is a reduced diffusion. Airway Pressure: Airways resistance is normal according to sGaw. Impression Based on pulmonary function testing there is no evidence of restrictive lung disease. The restrictive patterned spirometry may be due to inadequate effort or pseudorestriction from obesity. In the absence of other lung pathology the reduced diffusion may represent pulmonary hypertension or peripheral vascular disease. If clinically appropriate would recommend an echocardiogram to further assess the potential for pulmonary hypertension. Clinical Correlation therefore is recommended.
== END 2020-09-18 03:49 | disposition home or self-care (01) ==
PROVIDERS: Visit Provider Nurse Practitioner Family
DX: J98.4 Other disorders of lung (principal); R05 Cough; I50.32 Chronic diastolic (congestive) heart failure
CPT/HCPCS: 94060; 94726; 94729; 71046

== ENCOUNTER 2020-10-03 02:43 | Outpatient (CLI) | payer MEDICARE, MEDICAID, SELFPAY ==
[2020-10-03 08:47] LABS: Anion Gap 4.3 mmol/L (3-11); BUN 14 mg/dL (7-18); CO2 24.7 mmol/L (21.0-32.0); CREATININE 1.1 mg/dL (0.55-1.02); Calcium 9.5 mg/dL (8.5-10.1); Chloride 106 mmol/L (98-107); Estimated GFR 51.76 (mL/min/1.73m2); Glucose 230 mg/dL (74-106); Potassium 4.4 mmol/L (3.5-5.1); Sodium 135 mmol/L (136-145)
[2020-10-06 13:00] LABS: C-Peptide 3.3 ng/mL (1.1 - 4.4)
== END 2020-10-03 02:44 | disposition home or self-care (01) ==
LOC: LBO 02:43
PROVIDERS: Visit Provider Internal Medicine Endocrinology, Diabetes & Metabolism
DX: K74.60 Unspecified cirrhosis of liver (principal); E55.9 Vitamin D deficiency, unspecified; E11.65 Type 2 diabetes mellitus with hyperglycemia; E11.40 Type 2 diabetes mellitus with diabetic neuropathy, unspecified
CPT/HCPCS: 36415; 80048; 80076; 82306; 85027; 82105; 82977; 84681; 85610

== ENCOUNTER 2020-10-29 15:04 | Outpatient (REF) | payer MEDICARE, MEDICAID, SELFPAY ==
[2020-10-29 15:30] LABS: ALT 29 U/L (14-59); AST 22 U/L (15-37); Albumin 3.7 g/dL (3.4-5.0); Alkaline Phosphatase 136 U/L (46-116); Bilirubin, Direct 0.1 mg/dL (0.0-0.2); Bilirubin, Total 0.5 mg/dL (0.2-1.0); Total Protein 7.1 g/dL (6.4-8.2)
== END 2020-10-29 15:05 | disposition home or self-care (01) ==
LOC: NCHCN 15:04
PROVIDERS: Referring Provider Nurse Practitioner Family; Visit Provider Nurse Practitioner Family
DX: I10 Essential (primary) hypertension (principal); R94.5 Abnormal results of liver function studies
CPT/HCPCS: 80076

== ENCOUNTER 2020-12-02 00:52 | Outpatient (CLI) | payer MEDICARE, MEDICAID, SELFPAY ==
--- NOTE | 2020-12-02 | DI.US_ITS ---
Exam(s) US ABDOMEN EXAM: US ABDOMEN CLINICAL HISTORY: F/U CIRRHOSIS OF LIVER, K74.60 TECHNIQUE: Ultrasound of complete upper abdomen performed using standard protocol. COMPARISON: US US ABDOMEN from 05/06/2020 FINDINGS: There is no ascites evident. LIVER: Hyperechoic indicating an element of steatosis. No discrete focal hepatic lesions identified. GALLBLADDER/BILIARY: Gallbladder is again noted be surgically absent The common hepatic duct isnot dilated, measuring 6mm at the level of aleksandar hepatis. PANCREAS: There is no evidence of pancreatic mass nor dilatation of the pancreatic duct. SPLEEN: The spleen is not enlarged and there are no intrasplenic lesions evident. KIDNEYS:Kidneys exhibit normal size with no evidence of solid mass, calculus, nor hydronephrosis. No cortical cysts evident. ABDOMINAL AORTA: There is no evidence of abdominal aortic aneurysm. IVC: Normal diameter where visualized. IMPRESSION: 1. Gallbladder is again noted be surgically absent. CBD diameter is upper normal. 2. Mild hepatic steatosis. Correlation with appropriate hepatic blood work recommended. 3. No other significant ultrasound findings and no evidence of ascites. DATA REPOSITORY:
== END 2020-12-02 01:12 ==
PROVIDERS: Visit Provider Internal Medicine Gastroenterology
DX: K74.60 Unspecified cirrhosis of liver (principal); K76.0 Fatty (change of) liver, not elsewhere classified
CPT/HCPCS: 76700

== ENCOUNTER 2020-12-10 11:37 | Outpatient (REF) | payer MEDICARE, MEDICAID, SELFPAY ==
[2020-12-10 22:17] LABS: HCT 48.3 % (36.0-46.0); HGB 15.8 g/dL (11.2-15.7); MCH 28.4 pg (27.0-33.0); MCHC 32.7 % (32.0-36.0); MCV 86.9 fL (80-95); MPV 10.7 fL (8.0-11.0); Platelet Count 418 10^3/uL (130-400); RBC 5.56 10^6/uL (3.93-5.22); RDW 15.2 % (11.7-14.6); RDW-SD 48.5 fL; WBC 12.54 10^3/uL (4.4-10.8)
[2020-12-10 22:23] LABS: Prothrombin Time 10.2 sec (9.3-11.0)
[2020-12-10 22:26] LABS: ALT 36 U/L (14-59); AST 22 U/L (15-37); Alkaline Phosphatase 158 U/L (46-116); BUN 12 mg/dL (7-18); Bilirubin, Direct 0.1 mg/dL (0.0-0.2); Bilirubin, Total 0.6 mg/dL (0.2-1.0); CREATININE 1.2 mg/dL (0.55-1.02); Calcium 9.5 mg/dL (8.5-10.1); Chloride 104 mmol/L (98-107); Estimated GFR 46.82 (mL/min/1.73m2); GGT 80 U/L (5-55); Glucose 199 mg/dL (74-106); Potassium 5.2 mmol/L (3.5-5.1); Sodium 143 mmol/L (136-145); Total Protein 7.1 g/dL (6.4-8.2)
[2020-12-12 09:34] LABS: AFP Tumor Marker 2.6 ng/mL (<8.1)
== END 2020-12-10 11:38 | disposition home or self-care (01) ==
LOC: NCHCN 11:37
PROVIDERS: Visit Provider Nurse Practitioner Family
DX: K74.60 Unspecified cirrhosis of liver (principal); E11.9 Type 2 diabetes mellitus without complications
CPT/HCPCS: 80048; 80076; 85027; 82105; 82977; 85610

== ENCOUNTER 2021-01-08 16:43 | Outpatient (REF) | payer MEDICARE, MEDICAID, SELFPAY ==
[2021-01-09 11:26] LABS: COVID-19 RT-PCR UVMMC Result Negative (Negative)
== END 2021-01-08 16:44 | disposition home or self-care (01) ==
LOC: NCHCN 16:43
PROVIDERS: Visit Provider Nurse Practitioner Family
DX: Z20.822 Contact with and (suspected) exposure to COVID-19 (principal)
CPT/HCPCS: U0003; U0005

== ENCOUNTER 2021-01-14 21:14 | Outpatient (REF) | payer MEDICARE, MEDICAID, SELFPAY ==
[2021-01-17 11:06] LABS: COVID-19 RT-PCR UVMMC Result Negative (Negative)
== END 2021-01-14 21:15 | disposition home or self-care (01) ==
LOC: NCHCN 21:14
PROVIDERS: Visit Provider Family Medicine
DX: Z20.822 Contact with and (suspected) exposure to COVID-19 (principal); R05.8 Other specified cough
CPT/HCPCS: U0003

== ENCOUNTER 2021-01-20 11:12 | Outpatient (REF) | payer MEDICARE, MEDICAID, SELFPAY ==
[2021-01-20 18:00] LABS: ALT 32 U/L (14-59); AST 27 U/L (15-37); Albumin 3.7 g/dL (3.4-5.0); Alkaline Phosphatase 136 U/L (46-116); Anion Gap 12.1 mmol/L (3-11); BUN 14 mg/dL (7-18); Bilirubin, Total 0.5 mg/dL (0.2-1.0); CO2 25.9 mmol/L (21.0-32.0); CREATININE 1.2 mg/dL (0.55-1.02); Calcium 9.5 mg/dL (8.5-10.1); Calculated LDL 84 mg/dL (<100); Chloride 102 mmol/L (98-107); Cholesterol 157 mg/dL (<200); Estimated GFR 46.82 (mL/min/1.73m2); Glucose 123 mg/dL (74-106); HDL Cholesterol 36 mg/dL (40-60); Potassium 4.6 mmol/L (3.5-5.1); Sodium 140 mmol/L (136-145); Triglyceride 187 mg/dL (<150)
== END 2021-01-20 11:13 | disposition home or self-care (01) ==
LOC: NCHCN 11:12
PROVIDERS: Visit Provider Nurse Practitioner Family
DX: I10 Essential (primary) hypertension (principal); E11.9 Type 2 diabetes mellitus without complications
CPT/HCPCS: 80053; 80061

== ENCOUNTER 2021-03-26 01:59 | Outpatient (CLI) | payer MEDICARE, MEDICAID, SELFPAY ==
--- NOTE | 2021-03-26 09:00 | DI.US_ITS ---
Exam(s) US ABDOMEN EXAM: US ABDOMEN INDICATION: CIRRHOSIS, LIVER, K74.60 COMPARISON: US US ABDOMEN from 12/02/2020 TECHNIQUE: Ultrasound abdomen performed using standard protocol FINDINGS: Abdominal ultrasound was performed according to the usual protocol. The liver is normal in size and shape. No focal hepatic lesion seen. There is increased hepatic echo genicity and there is decreased through transmission, findings are suggestive of hepatic steatosis. Dependent portions of the liver were nonvisualized. The gallbladder has been surgically removed, there is no evidence of biliary dilatation.. Portal venous flow is hepatopetal. Pancreas appears intact as visualized. Spleen is unremarkable in appearance with no focal lesion. Kidneys are normal in size and shape. There is no evidence of renal mass or hydronephrosis, there is 4 millimeter echogenic focus of the lower pole of the right kidney which probably represents a small nonobstructing stone period. Abdominal aorta and IVC are of normal diameter. IMPRESSION: Hepatic steatosis noted. Liver incompletely visualized. Prior cholecystectomy noted. Probable small nonobstructing right lower pole renal calculus. RADIATION DOSE DELIVERED: Total DLP CTDIvol
== END 2021-03-26 02:19 ==
PROVIDERS: Visit Provider Nurse Practitioner Family
DX: K74.69 Other cirrhosis of liver (principal); K76.0 Fatty (change of) liver, not elsewhere classified; Z90.49 Acquired absence of other specified parts of digestive tract; N20.0 Calculus of kidney
CPT/HCPCS: 76700

== ENCOUNTER 2021-03-27 15:33 | Outpatient (REF) | payer MEDICARE, MEDICAID, SELFPAY ==
[2021-03-27 21:10] LABS: Abs Immature Grans 0.04 10^3/uL (0.0-0.06); Absolute Lymphocyte Count 4.93 10^3/uL (1.2-3.4); Absolute Monocyte Count 0.89 10^3/uL (0.1-0.8); Basophils % 0.5; Eosinophils % 1.8; HCT 47.8 % (36.0-46.0); HGB 15.7 g/dL (11.2-15.7); Immature Grans % 0.3; Lymphocytes % 33.3; MCH 27.9 pg (27.0-33.0); MCHC 32.8 % (32.0-36.0); MCV 85.1 fL (80-95); MPV 10.4 fL (8.0-11.0); Neutrophils % 58.1; Nucleated RBC 0 %; Platelet Count 429 10^3/uL (130-400); RBC 5.62 10^6/uL (3.93-5.22); RDW 15.9 % (11.7-14.6); RDW-SD 49.7 fL; WBC 14.81 10^3/uL (4.4-10.8)
[2021-03-27 21:11] LABS: Absolute Basophil Count 0.07 10^3/uL (0.0-0.2); Absolute Eosinophil Count 0.27 10^3/uL (0.0-0.7)
[2021-03-27 21:22] LABS: ALT 37 U/L (14-59); AST 24 U/L (15-37); Alkaline Phosphatase 144 U/L (46-116); Anion Gap 11.1 mmol/L (3-11); BUN 16 mg/dL (7-18); Bilirubin, Total 0.5 mg/dL (0.2-1.0); CO2 25.9 mmol/L (21.0-32.0); CREATININE 1.1 mg/dL (0.55-1.02); Calcium 9.7 mg/dL (8.5-10.1); Chloride 103 mmol/L (98-107); Estimated GFR 51.76 (mL/min/1.73m2); GGT 79 U/L (5-55); Glucose 98 mg/dL (74-106); Potassium 4.7 mmol/L (3.5-5.1); Sodium 140 mmol/L (136-145); Total Protein 7.4 g/dL (6.4-8.2)
== END 2021-03-27 15:34 | disposition home or self-care (01) ==
LOC: NCHCN 15:33
PROVIDERS: Visit Provider Nurse Practitioner Family
DX: K74.60 Unspecified cirrhosis of liver (principal)
CPT/HCPCS: 80053; 82977; 85025

== ENCOUNTER 2021-07-07 14:16 | Outpatient (REF) | payer MEDICARE, MEDICAID, SELFPAY ==
[2021-07-07 22:40] LABS: TSH (W/Ref FT4) 0.84 uIU/mL (0.36-3.74); Vitamin B12 793 pg/mL (193-986)
[2021-07-09 06:36] LABS: Vitamin D 25 Total 27.9 ng/mL (30-100)
== END 2021-07-07 14:17 | disposition home or self-care (01) ==
LOC: NCHCN 14:16
PROVIDERS: PCP Nurse Practitioner Family; Visit Provider Nurse Practitioner Family
DX: E03.9 Hypothyroidism, unspecified (principal); K74.60 Unspecified cirrhosis of liver; E11.9 Type 2 diabetes mellitus without complications; F32.9 Major depressive disorder, single episode, unspecified; R53.83 Other fatigue; R51.9 Headache, unspecified; J98.4 Other disorders of lung
CPT/HCPCS: 82306; 82607; 84443

== ENCOUNTER 2021-08-10 10:03 | Emergency (ER) | payer MEDICARE, MEDICAID, SELFPAY ==
[2021-08-10] VITALS (17 sets, daily range): BP systolic 107–122; BP diastolic 65–74; PULSE 90–115; RESP 8–33; TEMP 36.3; O2SAT 82–100
--- NOTE | 2021-08-10 11:45 | DI.RAD_ITS ---
Exam(s) XR PORTABLE CHEST AP EXAM: XR PORTABLE CHEST AP CLINICAL HISTORY: cough TECHNIQUE: 2D digital imaging was performed of the chest. One image was obtained. An AP view was ob tained. COMPARISON: CR XR CHEST 2V PA LATERAL from 09/18/2020 FINDINGS: MEDIASTINUM: Normal. HEART: Normal. PULMONARY VASCULATURE: Normal. LUNGS: Clear. PLEURAL SPACE: No pleural effusion or pneumothorax. BONE:Within normal limits for the patient's age. OTHER FINDINGS:Normal. IMPRESSION: No acute pulmonary findings. DATA REPOSITORY: RADIATION DOSE DELIVERED:
[2021-08-10] MEDS: Normal Saline 1,000 ML 1000 ML IV (11:50)
--- NOTE | 2021-08-10 11:52 | ED.GENADUL_ITS ---
Discharge Plan Disposition Patient Disposition: HOME Condition: Good Discharge Details Clinical Impression: Cough Primary Care Provider: Noemi Sharma ED Provider: Mary Carnes Home Meds and New Rx's Prescriptions: New azithromycin 250 mg tablet 250 mg PO DAILY 4 Days Qty: 4 0RF Rx Instructions: please begin taking 08/11/21 Continued albuterol sulfate 90 mcg/actuation HFA aerosol inhaler 2 puff IH QID PRN valacyclovir 1 gram tablet 1,000 mg PO BID PRN Rx Instructions: Take 2 tablets twice a day at the onset of a cold sore for 1 day. (DME) Blood Glucose Test Strip See Dose Instructions .ROUTE .MEDSUPPLY Qty: 400 5RF Dose Instruction: AC and HS Rx Instructions: AC and HS E11.21 4 times daily One Touch (DME) lancets [BD Ultra Fine Lancets] 33 gauge misc 1 ea Miscellaneous BID Qty: 400 11RF Rx Instructions: E11.9 four time daily testing insulin NPH and regular human 100 unit/mL (70-30) suspension See Rx Instructions SC BID Qty: 60 4RF Dose Instruction: 20 units qAM and 15 units qPM; SC BID; 20 units qAM and 15 units qPM SC BID; Rx Instructions: 35 units BID (DME) Aeroeclipse Reusable BAN 1 EACH misc 1 ea Miscellaneous Q4H PRN Qty: 1 Rx Instructions: dispense with all accessories (DME) blood-glucose meter 1 EACH misc 1 ea Miscellaneous PRN Qty: 1 Rx Instructions: rely meter or other generic; GLUCOMETER DIAGNOSIS CODE 250.02 (DME) insulin syringe-needle U-100 [BD Insulin Syringe Ultra-Fine] 0.3 mL 31 gauge x 5/16 syringe See Dose Instructions .ROUTE .MEDSUPPLY Qty: 200 5RF Dose Instruction: As directed Rx Instructions: twice daily. E11.9 furosemide 20 mg tablet 20 mg PO DAILY Qty: 90 5RF spironolactone 100 mg tablet 100 mg PO DAILY Qty: 90 6RF omeprazole 40 mg capsule,delayed release(DR/EC) 40 mg PO DAILY Qty: 90 4RF escitalopram oxalate 20 mg tablet 20 mg PO DAILY MDD 30 Qty: 90 4RF metoprolol succinate 25 mg tablet extended release 24 hr 25 mg PO DAILY Qty: 90 12RF fluconazole [Diflucan] 150 mg tablet 150 mg PO Q3D Qty: 30 1RF montelukast 10 mg tablet 10 mg PO DAILY Discharge Instructions Instructions: Azithromycin (By mouth), Acute Cough (ED), Shortness of Breath (ED) Additional Instructions: Please return immediately to the emergency department if you develop any new or worsening symptoms, if your condition does not improve as expected, or if you become otherwise concerned. It is extremely important that you call soon as possible to make an appointment to be seen in follow-up for this visit by your primary care doctor. Referrals: Noemi Sharma [Primary Care Provider] - Discharge Data Discharge Date/Time-TO BE ENTERED AT DEPARTURE: 08/10/21 15:12 Medical Decision Making Teresita Fernández is a 56-year-old woman history of restrictive lung disease, GERD, hyperlipidemia, hypertension, insulin-dependent diabetes, restrictive pericarditis status post pericardiectomy presenting to emergency presenting to emergency department with cough. Patient reports that she has had 3-week of cough. She reports that she is coughing up either white or yellow phlegm. She states that when she coughs she has stabbing chest pain, but has no chest pain when she is not coughing. She reports a headache from frequent coughing that is intermittent in and mild, denies any other pain. Patient reports that she has felt more short of breath since onset of cough, but has baseline shortness of breath from her restrictive lung disease. Patient reports that she has been using her albuterol inhalers without improvement in symptoms. She reports that she has been able to go about her activities as usual, has been eating and drinking as usual. She reports that she does feel somewhat under the weather in general. Denies fever, vomiting, diarrhea, numbness, localized weakness, rash, swelling. Patient reports that she did see a physician for this approximately 2 weeks ago, who prescribed her medication that the pharmacy did not have, and patient never filled rx. She has had 4 at home COVID tests since symptom onset that have been negative. On exam Pt is very well and non-toxic appearing. Normal respiratory effort, speaking in full sentences, LCTAB. Tachycardic at 110. Concern for covid, flu, bacterial PNA, RAD, other. Doubt pulmonary embolism. Exam/hx at this time not c/w sepsis, acute coronary syndrome, acute aortic pathology. Plan for EKG, IV placement, telemetry, screening labs, IVF hydration. On reassessment Pt feeling improved. CXR negative. Labs reviewed, no leukocytosis, d-dimer neg when age-adjusted, with tachycardia resolved with fluids exam/hx/results not c/w pulmonary embolism at this time. Discussed CT chest for r/o occult PNA with Pt, pt prefers to go home at this time with empiric abx with outpt f/u with PCP. Plan for azithromycin, outpt f/u with PCP and pulmonology. I had a discussion with Patient regarding return to emergency department precautions, home care, and importance of outpatient follow-up. Pt verbalizes understanding of the plan and is amenable. Patient discharged to home with clear plan for outpatient follow-up. All questions were answered. Disposition decision was made weighing the risks and benefits of hospitalization versus outpatient treatment, the risk for further decompensation, and the patient's wishes. The documentation in this chart was dictated using [employer] dictation software. Please excuse any dictation errors. Medical Records Medical records reviewed: Yes I reviewed the patient's medical records. Imaging Data Radiologic Study: Attestation: I personally reviewed and interpreted this imaging study as follows: Radiologist's impression: EXAM:? XR PORTABLE CHEST AP CLINICAL HISTORY:? cough TECHNIQUE:? 2D digital imaging was performed of the chest. One image was obtained.? An AP view was obtained. COMPARISON:? CR XR CHEST 2V PA ? LATERAL from 09/18/2020 FINDINGS: MEDIASTINUM: Normal.? HEART: Normal. PULMONARY VASCULATURE: Normal. LUNGS: Clear.? PLEURAL SPACE: No pleural effusion or pneumothorax. BONE:Within normal limits for the patient's age. OTHER FINDINGS:Normal.? IMPRESSION: No acute pulmonary findings. Lab Data Lab results reviewed: Yes I reviewed the patient's lab results. Labs: Laboratory Tests Range/Units 08/10/21 08/10/21 08/10/21 11:57 12:04 12:04 WBC (4.4-10.8) 10^3/uL 10.59 RBC (3.93-5.22) 10^6/uL 5.90 H Hgb (11.2-15.7) g/dL 16.5 H Hct (36.0-46.0) % 51.0 H MCV (80-95) fL 86 MCH (27.0-33.0) pg 28.0 MCHC (32.0-36.0) % 32.4 RDW (11.7-14.6) % 15.5 H Plt Count (130-400) 10^3/uL 412 H MPV (8.0-11.0) fL 10.2 Immature Gran % 0.3 Neutrophils % 58.3 Lymphocytes % 34.2 Monocytes % 5.2 Eosinophils % 1.6 Basophils % 0.4 Nucleated RBC % (0.0-0.3) % 0.0 Absolute Neutrophils (1.2-6.7) 10^3/uL 6.18 Absolute Lymphocytes (1.2-3.4) 10^3/uL 3.62 H Absolute Monocytes (0.1-0.8) 10^3/uL 0.55 Absolute Eosinophils (0.0-0.7) 10^3/uL 0.17 Absolute Basophils (0.0-0.2) 10^3/uL 0.04 D-Dimer (<500) ng/mlFEU Sodium (136-145) mmol/L 139 Potassium (3.5-5.1) mmol/L 4.0 Chloride (98-107) mmol/L 102 Carbon Dioxide (21.0-32.0) mmol/L 28.8 Anion Gap (3-11) mmol/L 8.2 BUN (7-18) mg/dL 12 Creatinine (0.55-1.02) mg/dL 1.1 H Estimated GFR/1.73 m2 (mL/min/1.73m2) 51.57 Glucose (74-106) mg/dL 156 H Calcium (8.5-10.1) mg/dL 9.3 Total Bilirubin (0.2-1.0) mg/dL 0.5 AST (15-37) U/L 26 ALT (14-59) U/L 35 Alkaline Phosphatase (46-116) U/L 146 H Total Protein (6.4-8.2) g/dL 8.0 Albumin (3.4-5.0) g/dL 3.8 COVID-19 Source Nasopharynx SARS-CoV-2 (PCR) (Negative) Negative Influenza Type A (PCR) (Negative) Negative Influenza Type B (PCR) (Negative) Negative RSV (PCR) (Negative) Negative Range/Units 08/10/21 12:04 WBC (4.4-10.8) 10^3/uL RBC (3.93-5.22) 10^6/uL Hgb (11.2-15.7) g/dL Hct (36.0-46.0) % MCV (80-95) fL MCH (27.0-33.0) pg MCHC (32.0-36.0) % RDW (11.7-14.6) % Plt Count (130-400) 10^3/uL MPV (8.0-11.0) fL Immature Gran % Neutrophils % Lymphocytes % Monocytes % Eosinophils % Basophils % Nucleated RBC % (0.0-0.3) % Absolute Neutrophils (1.2-6.7) 10^3/uL Absolute Lymphocytes (1.2-3.4) 10^3/uL Absolute Monocytes (0.1-0.8) 10^3/uL Absolute Eosinophils (0.0-0.7) 10^3/uL Absolute Basophils (0.0-0.2) 10^3/uL D-Dimer (<500) ng/mlFEU 550 H Sodium (136-145) mmol/L Potassium (3.5-5.1) mmol/L Chloride (98-107) mmol/L Carbon Dioxide (21.0-32.0) mmol/L Anion Gap (3-11) mmol/L BUN (7-18) mg/dL Creatinine (0.55-1.02) mg/dL Estimated GFR/1.73 m2 (mL/min/1.73m2) Glucose (74-106) mg/dL Calcium (8.5-10.1) mg/dL Total Bilirubin (0.2-1.0) mg/dL AST (15-37) U/L ALT (14-59) U/L Alkaline Phosphatase (46-116) U/L Total Protein (6.4-8.2) g/dL Albumin (3.4-5.0) g/dL COVID-19 Source SARS-CoV-2 (PCR) (Negative) Influenza Type A (PCR) (Negative) Influenza Type B (PCR) (Negative) RSV (PCR) (Negative) ECG Data Attestation: I personally reviewed and interpreted this ECG (s) as follows: Interpretation: EKG shows sinus rhythm at 94, normal axis, no acute ischemic changes, nondiagnostic EKG HPI General Mode of arrival: ambulatory . Date/Time Provider Initiated Documentation: 08/10/21 10:50 . Limitations to Documentation: no limitations . Information obtained by: patient, RN notes reviewed and old records reviewed . HPI Narrative: Teresita Fernández is a 56-year-old woman history of restrictive lung disease, GERD, hyperlipidemia, hypertension, insulin-dependent diabetes, restrictive pericarditis status post pericardiectomy presenting to emergency presenting to emergency department with cough. Patient reports that she has had 3-week of cough. She reports that she is coughing up either white or yellow phlegm. She states that when she coughs she has stabbing chest pain, but has no chest pain when she is not coughing. She reports a headache from frequent coughing that is intermittent in and mild, denies any other pain. Patient reports that she has felt more short of breath since onset of cough, but has baseline shortness of breath from her restrictive lung disease. Patient reports that she has been using her albuterol inhalers without improvement in symptoms. She reports that she has been able to go about her activities as usual, has been eating and d rinking as usual. She reports that she does feel somewhat under the weather in general. Denies fever, vomiting, diarrhea, numbness, localized weakness, rash, swelling. Patient reports that she did see a physician for this approximately 2 weeks ago, who prescribed her medication that the pharmacy did not have, and patient never filled rx. She has had 4 at home COVID tests since symptom onset that have been negative. Related Data Home Medications Medication Instructions Recorded Confirmed nebulizers (Aeroeclipse Reusable #1 ea 05/22/13 02/05/20 Breath Actuated Nebulizer) blood-glucose meter #1 ea 09/10/14 02/05/20 albuterol sulfate 90 mcg/actuation 2 puff inhalation QID PRN 10/31/17 08/10/21 aerosol inhaler valacyclovir 1 gram tablet 1,000 mg PO BID PRN 05/01/19 08/10/21 insulin syringe-needle U-100 0.3 #200 ea 06/15/19 02/05/20 mL 31 gauge x 5/16 (BD Insulin Syringe Ultra-Fine) furosemide 20 mg tablet 20 mg PO DAILY #90 tabs 07/23/19 08/10/21 insulin human U-100 NPH-regulr See Rx Instructions subcut BID 11/27/19 08/10/21 70-30 mix 100 unit/mL subcutaneous diabetes #60 mL susp omeprazole 40 mg capsule,delayed 40 mg PO DAILY #90 caps 12/06/19 08/10/21 release spironolactone 100 mg tablet 100 mg PO DAILY #90 tabs 12/06/19 08/10/21 blood sugar diagnostic (Blood #400 ea 02/05/20 02/05/20 Glucose Test strips) lancets 33 gauge (BD Ultra Fine #400 ea 02/05/20 02/05/20 Lancets) escitalopram oxalate 20 mg tablet 20 mg PO DAILY #90 tabs 04/22/20 08/10/21 metoprolol succinate 25 mg 25 mg PO DAILY #90 tab-caps 05/02/20 08/10/21 tablet,extended release 24 hr fluconazole 150 mg tablet 150 mg PO Q3D #30 tabs 05/06/20 08/10/21 (Diflucan) azithromycin 250 mg tablet 250 mg PO DAILY 4 days #4 tabs 08/10/21 montelukast 10 mg tablet 10 mg PO DAILY 08/10/21 08/10/21 Previous Rx's Medication Instructions Recorded insulin syringe-needle U-100 0.3 #200 ea 06/15/19 mL 31 gauge x 5/16 (BD Insulin Syringe Ultra-Fine) furosemide 20 mg tablet 20 mg PO DAILY #90 tabs 07/23/19 insulin human U-100 NPH-regulr See Rx Instructions subcut BID 11/27/19 70-30 mix 100 unit/mL subcutaneous diabetes #60 mL susp omeprazole 40 mg capsule,delayed 40 mg PO DAILY #90 caps 12/06/19 release spironolactone 100 mg tablet 100 mg PO DAILY #90 tabs 12/06/19 blood sugar diagnostic (Blood #400 ea 02/05/20 Glucose Test strips) lancets 33 gauge (BD Ultra Fine #400 ea 02/05/20 Lancets) escitalopram oxalate 20 mg tablet 20 mg PO DAILY #90 tabs 04/22/20 metoprolol succinate 25 mg 25 mg PO DAILY #90 tab-caps 05/02/20 tablet,extended release 24 hr fluconazole 150 mg tablet 150 mg PO Q3D #30 tabs 05/06/20 (Diflucan) azithromycin 250 mg tablet 250 mg PO DAILY 4 days #4 tabs 08/10/21 Allergies Allergy/AdvReac Type Severity Reaction Status Date / Time adhesive Allergy Intermediate Verified 08/10/21 10:19 scopolamine Allergy Intermediate Itchy rash Verified 08/10/21 10:19 amoxicillin Allergy Unknown Verified 08/10/21 10:19 latex Allergy Unknown Verified 08/10/21 10:19 Penicillins Allergy Unknown Verified 08/10/21 10:19 Sulfa (Sulfonamide Allergy Unknown Verified 08/10/21 10:19 Antibiotics) metformin AdvReac Intermediate Diarrhea Verified 08/10/21 10:19 budesonide [From Symbicort] AdvReac Anxiety/Sha Verified 08/10/21 10:19 kiness formoterol fumarate AdvReac Anxiety/Sha Verified 08/10/21 10:19 [From Symbicort] kiness varicella-zoster virus AdvReac Local Verified 08/10/21 10:19 glycoprotein E, recombinant reaction- redness and swelling General Stated Complaint: [facility] ROBERTH: 4 Review of Systems Narrative: Constitutional: denies fevers Eyes: denies eye pain ENT: denies ear pain, dental pain, sore throat Cardiovascular: denies current chest pain, edema, reports sharp chest pain during coughing only as per HPI Respiratory: Reports SOB, cough GI: denies abdominal pain, vomiting, diarrhea : denies flank pain MSK: denies back pain, neck pain, arthralgias, myalgias Skin: denies rash Neuro: denies numbness, weakness, reports headache as per HPI PFSH All Active Problems (Updated 08/10/21 @ 14:26 by Mary Carnes MD) Cough (Acute) Skin infection (Acute) Recurrent cold sores (Acute) Tubular adenoma of colon (Acute) 11/24/18; DR. LI Yeast infection (Acute) Tricuspid insufficiency (Chronic 08/22/14) Sleep disorder (Chronic) Shortness of breath (Chronic 08/02/13) atelectasis; 50% lung function during echo Sacroiliac dysfunction (Chronic 10/22/14) Restrictive lung disease (Chronic 12/11/13) PFT 11/27/13 - [facility] [place] Reflux gastritis (Chronic 09/10/14) Polycystic ovaries (Chronic 01/20/10) Morbid obesity with BMI of 40.0-44.9, adult (Chronic 06/13/17) Lymphedema of limb (Chronic 12/11/13) Hyperlipidemia (Chronic 08/15/12) Hiatal hernia (Chronic 12/25/12) Extremity edema (Acute 12/21/13) Essential hypertension (Chronic 12/11/12) Diabetes mellitus (Chronic 05/22/12) Depressive disorder (Chronic 03/19/08) 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) Sinus tachycardia 07/12/14 secondary to the inadvertent use of supplements Sinus tachycardia Upper respiratory tract infection 01/04/17 unspecified Upper respiratory tract infection (01/04/17) Vaginal bleeding Surgical History Endometrial Biopsy NEG H/O esophagogastroduodenoscopy 12/22/12 [facility] H/O surgical procedure endometrial biopsy-neg History of esophagogastroduodenoscopy History of surgical procedure Family History Mother , age 64 Diabetes Essential hypertension Heart disease Myocardial infarction Stroke Father , age 70 Heart disease Myocardial infarction Asthma Sister Rheumatoid arthritis Diabetes Essential hypertension Heart disease Brother Rheumatoid arthritis Diabetes Borderline Brother Diabetes Essential hypertension Rheumatoid arthritis Brother Rheumatoid arthritis Diabetes Essential hypertension Brother Rheumatoid arthritis Diabetes Essential hypertension Maternal Grandmother Diabetes Essential hypertension Heart disease Cancer Uncle Heart disease CABG Maternal Grandfather , age 20? Diabetes Colon cancer Paternal Grandfather , appendix at age 36. Cancer Diabetes Paternal Grandmother Stroke Cancer Diabetes Son Depression Social History Smoking/Tobacco Use Status: Former Tobacco Use tobacco type: cigarettes Quit D ate: 02/21/95 Second Hand Exposure: Yes Smoking risk assessment performed?: Yes Alcohol Intake: never Drug use: Occasionally Substance use type: marijuana Caregiver/Support person: No Household members: none Communication Needs: None Do you need help understanding health information?: Never current occupation: disabled Pets and animals: No Sexually active: Yes Do you think of yourself as: straight/heterosexual Current gender identity: female What is your relationship status?: How often do you talk on the phone with friends or family?: three or more times per week How often do you get together with friends or relatives?: never How often do you attend buddhist or pentecostal services?: decline to answer Do you belong to any clubs or organized social groups?: no Panel score (0-1 are the most socially isolated patients): 1 What type of physical activity do you participate in: walking Duration: < 15 minutes/day Frequency: 5-6 times per week Elda/Hoahaoism: Taoist Special elda needs: No Seatbelt use: always Helmet use: No (n/a) Drive intox or ride w/intox bulk delivery driver: No Do you feel safe at home: Yes Do you feel safe in your relationship?: Yes Victim of physical abuse: No Victim of emotional abuse: Yes Victim of sexual abuse: No Would you like helpful sources: No Exam Narrative Exam Narrative: Constitutional: well and [id number], pleasant, conversing normally, occasional cough HENT: head atraumatic/normocephalic/normal inspection, mucous membranes moist Eyes: conjunctiva normal, sclera normal, pupils 3mm b/l Neck: no stridor, normal ROM, trachea midline Chest: normal inspection, no anterior chest wall TTP Resp: normal work of breathing, LCTAB Cardio: tachycardic rate, normal rhythm, no murmur appreciated GI: abdomen soft, non-tender, non-distended Back: normal inspection, no rash Skin: warm, dry, normal color, no rash Neuro: alert, not altered, grossly non-focal, normal tone Ext: no edema, no posterior calf tenderness to palpation Psych: normal mood, normal affect, normal behavior Course Vital Signs Vital signs: Vital Signs Temperature 36.3 C L 08/10/21 10:15 Pulse 115 H 08/10/21 10:15 Respiratory Rate 18 08/10/21 10:15 Pulse Oximetry 99 08/10/21 10:15 Temperature 36.3 C L 08/10/21 10:15 Temperature Source Temporal Artery Scan 08/10/21 10:15 Pulse 115 H 08/10/21 10:15 Respiratory Rate 18 08/10/21 10:15 Respiratory Effort Non-Labored 08/10/21 10:58 Respiratory Depth Normal 08/10/21 10:58 Respiratory Pattern Normal 08/10/21 10:58 Blood Pressure 110/74 08/10/21 10:22 Blood Pressure Position Sitting 08/10/21 10:15 Pulse Oximetry 99 08/10/21 10:15 Oxygen Delivery Method Room Air 08/10/21 10:15 Oxygen Flow Rate 0 08/10/21 10:15 Pain Level 0 08/10/21 10:15
[2021-08-10 12:19] LABS: Abs Immature Grans 0.03 10^3/uL (0.0-0.06); Absolute Basophil Count 0.04 10^3/uL (0.0-0.2); Absolute Eosinophil Count 0.17 10^3/uL (0.0-0.7); Absolute Lymphocyte Count 3.62 10^3/uL (1.2-3.4); Absolute Monocyte Count 0.55 10^3/uL (0.1-0.8); Absolute Neutrophil Count 6.18 10^3/uL (1.2-6.7); Basophils % 0.4; Eosinophils % 1.6; HGB 16.5 g/dL (11.2-15.7); Immature Grans % 0.3; Lymphocytes % 34.2; MCHC 32.4 % (32.0-36.0); MCV 86 fL (80-95); MPV 10.2 fL (8.0-11.0); Monocytes % 5.2; Neutrophils % 58.3; Platelet Count 412 10^3/uL (130-400); RDW 15.5 % (11.7-14.6); RDW-SD 49.1 fL; WBC 10.59 10^3/uL (4.4-10.8)
--- NOTE | 2021-08-10 12:45 | RT.EKG_ITS ---
APPROVED REPORT Exam: Resting ECG Reason for Exam: cough, SOB Patient Location: E HR:94 bpm ECG Measurements Heart Rate 94 AXIS RI 166 P 27 QRSd 88 QRS 51 QT 365 T 35 QTc 456 Conclusion Sinus rhythm...normal P axis, V-rate 60- 99 Probable left atrial enlargement...P >50mS, <-0.10mV V1 sinus rhythm at 94, normal axis, no acute ischemic changes, nondiagnostic EKG
[2021-08-10 12:51] LABS: COVID-19 PCR Negative (Negative); Influenza A PCR Negative (Negative); Influenza B PCR Negative (Negative); RSV PCR Negative (Negative)
[2021-08-10 12:52] LABS: ALT 35 U/L (14-59); AST 26 U/L (15-37); Albumin 3.8 g/dL (3.4-5.0); Alkaline Phosphatase 146 U/L (46-116); Anion Gap 8.2 mmol/L (3-11); BUN 12 mg/dL (7-18); Bilirubin, Total 0.5 mg/dL (0.2-1.0); CO2 28.8 mmol/L (21.0-32.0); CREATININE 1.1 mg/dL (0.55-1.02); Calcium 9.3 mg/dL (8.5-10.1); Chloride 102 mmol/L (98-107); Estimated GFR 51.57 (mL/min/1.73m2); Glucose 156 mg/dL (74-106); Sodium 139 mmol/L (136-145)
[2021-08-10 12:53] LABS: Source Nasopharynx
[2021-08-10 12:53] LABS: D-Dimer 550 ng/mlFEU (<500)
[2021-08-10] MEDS: Azithromycin 250 MG TAB 500 MG PO (15:12)
== END 2021-08-10 15:12 | disposition home or self-care (01) ==
PROVIDERS: Emergency Provider Student in an Organized Health Care Education/Training Program; PCP Nurse Practitioner Family
DX: R05.9 Cough, unspecified (principal); R06.02 Shortness of breath; R00.0 Tachycardia, unspecified; Z20.822 Contact with and (suspected) exposure to COVID-19
CPT/HCPCS: 80053; 87637; 93005; 96360; 99284; 71045; 85025; 85379; 93010

== ENCOUNTER 2021-10-09 17:12 | Outpatient (REF) | payer MEDICARE, MEDICAID, SELFPAY ==
[2021-10-09 15:55] LABS: Prothrombin Time 10.1 sec (9.3-11.0)
[2021-10-09 16:25] LABS: ALT 34 U/L (14-59); AST 29 U/L (15-37); Albumin 3.9 g/dL (3.4-5.0); Alkaline Phosphatase 136 U/L (46-116); Anion Gap 9.8 mmol/L (3-11); BUN 16 mg/dL (7-18); Bilirubin, Total 0.7 mg/dL (0.2-1.0); CO2 30.2 mmol/L (21.0-32.0); Calcium 9.5 mg/dL (8.5-10.1); Chloride 102 mmol/L (98-107); Estimated GFR 57.56 (mL/min/1.73m2); GGT 70 U/L (5-55); Glucose 119 mg/dL (74-106); Magnesium 2.2 mg/dL (1.8-2.4); Potassium 4.1 mmol/L (3.5-5.1); Sodium 142 mmol/L (136-145); TSH (W/Ref FT4) 1.34 uIU/mL (0.36-3.74); Total Protein 8.1 g/dL (6.4-8.2); Vitamin B12 1848 pg/mL (193-986)
[2021-10-12 05:48] LABS: Vitamin D 25 Total 33.3 ng/mL (30-100)
[2021-10-12 09:33] LABS: AFP Tumor Marker 2.5 ng/mL (<8.1)
== END 2021-10-09 17:13 | disposition home or self-care (01) ==
LOC: NCHCN 17:12
PROVIDERS: Internal Medicine Gastroenterology; PCP Nurse Practitioner Family; Visit Provider Nurse Practitioner Family
DX: K74.60 Unspecified cirrhosis of liver (principal); R18.8 Other ascites; R74.8 Abnormal levels of other serum enzymes; R94.5 Abnormal results of liver function studies; R61 Generalized hyperhidrosis; N20.0 Calculus of kidney; N18.9 Chronic kidney disease, unspecified; R51.9 Headache, unspecified; E11.9 Type 2 diabetes mellitus without complications; I10 Essential (primary) hypertension; E66.01 Morbid (severe) obesity due to excess calories; Z86.39 Personal history of other endocrine, nutritional and metabolic disease
CPT/HCPCS: 80053; 82306; 82105; 82607; 82977; 83735; 84443; 85610

== ENCOUNTER → 2022-01-13 01:44 | Outpatient (CLI) | payer MEDICARE, MEDICAID, SELFPAY ==
--- NOTE | 2022-01-13 | DI.US_ITS ---
Exam(s) US ABDOMEN LIMITED EXAM: US ABDOMEN LIMITED CLINICAL HISTORY: CIRRHOSIS OF LIVER K74.60 TECHNIQUE: Ultrasound abdomen performed using standard protocol. COMPARISON: US US ABDOMEN from 03/26/2021 FINDINGS: PANCREAS: Normal where visualized. LIVER: There is diffuse increased echogenicity of the liver. There is a nodular contour of the liver . Hepatopedal flow in the Portal Vein. The liver measures in 12.5 cm length. GALLBLADDER:Status post cholecystectomy. BILIARY SYSTEM: Common bile duct measures < 7 mm. No intrahepatic biliary ductal dilation. CHARLES'S SIGN: Negative. RIGHT KIDNEY: Kidney is normal in size. No evidence of renal calculi. No evidence of hydronephrosis. No renal mass or cyst identified. ASCITES: None seen. IMPRESSION: 1. Hepatic steatosis. There is a nodular contour of the liver suspicious for hepatic cirrhosis. 2. Status post cholecystectomy. DATA REPOSITORY:
== END ==
PROVIDERS: PCP Nurse Practitioner Family; Visit Provider Internal Medicine Gastroenterology
DX: K74.69 Other cirrhosis of liver (principal); K76.0 Fatty (change of) liver, not elsewhere classified; Z90.49 Acquired absence of other specified parts of digestive tract
CPT/HCPCS: 76705

== ENCOUNTER 2022-03-08 07:39 | Emergency (ER) | payer MEDICARE, MEDICAID, SELFPAY ==
[2022-03-08 07:44] VITALS: BP 151/88; PULSE 106; TEMP 36.3; O2SAT 98
--- NOTE | 2022-03-08 08:01 | W.ED.GENAD ---
Discharge Plan Disposition Patient Disposition: Home Condition: Improving Discharge Details Clinical Impression: Colitis Primary Care Provider: Noemi Sharma ED Provider: Nicko Vaughan Home Meds and New Rx's Prescriptions: New metronidazole 500 mg tablet 500 mg PO Q8H 7 Days Qty: 21 0RF ciprofloxacin HCl [Cipro] 500 mg tablet 500 mg PO BID 7 Days Qty: 14 0RF Continued albuterol sulfate 90 mcg/actuation HFA aerosol inhaler 2 puff IH QID PRN valacyclovir 1 gram tablet 1,000 mg PO BID PRN Rx Instructions: Take 2 tablets twice a day at the onset of a cold sore for 1 day. (DME) Blood Glucose Test Strip See Dose Instructions .ROUTE .MEDSUPPLY Qty: 400 5RF Dose Instruction: AC and HS Rx Instructions: AC and HS E11.21 4 times daily One Touch (DME) lancets [BD Ultra Fine Lancets] 33 gauge misc 1 ea Miscellaneous BID Qty: 400 11RF Rx Instructions: E11.9 four time daily testing insulin NPH and regular human 100 unit/mL (70-30) suspension See Rx Instructions SC BID Qty: 60 4RF Dose Instruction: 20 units qAM and 15 units qPM; SC BID; 20 units qAM and 15 units qPM SC BID; Rx Instructions: 35 units BID (DME) Aeroeclipse Reusable BAN 1 EACH misc 1 ea Miscellaneous Q4H PRN Qty: 1 Rx Instructions: dispense with all accessories (DME) blood-glucose meter 1 EACH misc 1 ea Miscellaneous PRN Qty: 1 Rx Instructions: rely meter or other generic; GLUCOMETER DIAGNOSIS CODE 250.02 (DME) insulin syringe-needle U-100 [BD Insulin Syringe Ultra-Fine] 0.3 mL 31 gauge x 5/16 syringe See Dose Instructions .ROUTE .MEDSUPPLY Qty: 200 5RF Dose Instruction: As directed Rx Instructions: twice daily. E11.9 furosemide 20 mg tablet 20 mg PO DAILY Qty: 90 5RF omeprazole 40 mg capsule,delayed release(DR/EC) 40 mg PO DAILY Qty: 90 4RF escitalopram oxalate 20 mg tablet 20 mg PO DAILY MDD 30 Qty: 90 4RF fluconazole [Diflucan] 150 mg tablet 150 mg PO Q3D Qty: 30 1RF montelukast 10 mg tablet 10 mg PO DAILY fluticasone propionate 50 mcg/actuation Blister With Device 1 inh INHALATION DAILY atorvastatin 20 mg Tablet 20 mg PO DAILY glimepiride 4 mg tablet 4 mg PO BID Label Comments: TAKE ONE TABLET BY MOUTH TWICE A DAY DIRECTED loratadine 10 mg Tablet 10 mg PO DAILY melatonin 5 mg tablet 5 mg PO QHS Label Comments: TAKE ONE TO TWO TABLETS BY MOUTH AT BEDTIME Ozempic 1 mg/dose (4 mg/3 mL) pen injector 2 mg SUBCUT QWEEK Label Comments: INJECT 2 MG INTO THE SKIN ONCE WEEKLY spironolactone 100 mg tablet 50 mg PO DAILY metoprolol succinate 25 mg tablet extended release 24 hr 50 mg PO DAILY Discharge Instructions Instructions: Colitis (ED) Additional Instructions: As we discussed your CAT scan showed evidence of inflammatory changes around the colon distant with colitis. Please take antibiotics as prescribed. Please follow-up with your automotive artist in [facility] for recheck. You did not have evidence of kidney stones. Return to the emergency [place] for any acute concern. Medical Decision Making This is a 56-year-old female with a number of chronic medical problems. She presents with 6 days of left upper quadrant and left flank pain that radiates at times to her pubic symphysis. She describes it as a cramping pain. She denies associated fever, vomiting, or recent illness. No vaginal discharge or bleeding. Patient has slight hypertension, she did not take her medications this morning and noted pulse 106, blood pressure 151/88. She is afebrile and oxygenating normally. Exam reveals left upper quadrant and left flank tenderness. Differential diagnosis includes renal colic, pyelonephritis, diverticulitis or muscular strain. IV access established, screening laboratories obtained, patient given fluid bolus and offered analgesia which she declined. Laboratories will note white blood cell count 11, hematocrit 46, platelets 378. Electrolytes unremarkable, BUN 12 and creatinine 1.1. LFTs within normal limits. Urinalysis concentrated but no other significant findings. CT imaging: Inflammatory changes around colon. No Acute kidney fingdings. See formal report. Patient has a presenting relationship with gastroenterology in [facility]. I will treat her with a course of oral antibiotics and have her follow-up for recheck in the outpatient setting. She is stable and improving. Lab Data Lab results reviewed: Yes I reviewed the patient's lab results. HPI General Mode of arrival: ambulatory. Date/Time Provider Initiated Documentation: 03/08/22 07:52. Limitations to Documentation: no limitations. Information obtained by: patient. History of Present Illness 56 year old F presents to the emergency department with the chief complaint of Left abdominal pain intermittent for days, described as moderate, Quality is described as dull, and is localized to the abdomen and left. Patient abdomen. Patient started experiencing this day(s) and it has been intermittent. No relieving factors improve symptom(s), No exacerbating factors reported . Patient notes denies fever/chills, loss of appetite, nausea/vomiting and weakness. Patient did receive the following treatments prior to arrival, none Related Data Home Medications Medication Instructions Recorded Confirmed nebulizers (Aeroeclipse Reusable #1 ea 05/22/13 02/05/20 Breath Actuated Nebulizer) blood-glucose meter #1 ea 09/10/14 02/05/20 albuterol sulfate 90 mcg/actuation 2 puff inhalation QID PRN 10/31/17 08/10/21 aerosol inhaler valacyclovir 1 gram tablet 1,000 mg PO BID PRN 05/01/19 08/10/21 insulin syringe-needle U-100 0.3 #200 ea 06/15/19 02/05/20 mL 31 gauge x 5/16 (BD Insulin Syringe Ultra-Fine) furosemide 20 mg tablet 20 mg PO DAILY #90 tabs 07/23/19 03/08/22 insulin human U-100 NPH-regulr See Rx Instructions subcut BID 11/27/19 08/10/21 70-30 mix 100 unit/mL subcutaneous diabetes #60 mL susp omeprazole 40 mg capsule,delayed 40 mg PO DAILY #90 caps 12/06/19 03/08/22 release blood sugar diagnostic (Blood #400 ea 02/05/20 02/05/20 Glucose Test strips) lancets 33 gauge (BD Ultra Fine #400 ea 02/05/20 02/05/20 Lancets) escitalopram oxalate 20 mg tablet 20 mg PO DAILY #90 tabs 04/22/20 03/08/22 fluconazole 150 mg tablet 150 mg PO Q3D #30 tabs 05/06/20 08/10/21 (Diflucan) montelukast 10 mg tablet 10 mg PO DAILY 08/10/21 08/10/21 atorvastatin 20 mg tablet 20 mg PO DAILY 03/08/22 03/08/22 ciprofloxacin HCl 500 mg tablet 500 mg PO BID 7 days #14 tabs 03/08/22 (Cipro) fluticasone propionate 50 1 inh inhalation DAILY 03/08/22 03/08/22 mcg/actuation blister powder for inhalation glimepiride 4 mg tablet 4 mg PO BID 03/08/22 03/08/22 loratadine 10 mg tablet 10 mg PO DAILY 03/08/22 03/08/22 melatonin 5 mg tablet 5 mg PO QHS 03/08/22 03/08/22 metoprolol succinate 25 mg 50 mg PO DAILY 03/08/22 03/08/22 tablet,extended release 24 hr metronidazole 500 mg tablet 500 mg PO Q8H 7 days #21 tabs 03/08/22 semaglutide 1 mg/dose (4 mg/3 mL) 2 mg subcut QWEEK 03/08/22 03/08/22 subcutaneous pen injector (Ozempic) spironolactone 100 mg tablet 50 mg PO DAILY 03/08/22 03/08/22 Previous Rx's Medication Instructions Recorded insulin syringe-needle U-100 0.3 #200 ea 06/15/19 mL 31 gauge x 5/16 (BD Insulin Syringe Ultra-Fine) furosemide 20 mg tablet 20 mg PO DAILY #90 tabs 07/23/19 insulin human U-100 NPH-regulr See Rx Instructions subcut BID 11/27/19 70-30 mix 100 unit/mL subcutaneous diabetes #60 mL susp omeprazole 40 mg capsule,delayed 40 mg PO DAILY #90 caps 12/06/19 release blood sugar diagnostic (Blood #400 ea 02/05/20 Glucose Test strips) lancets 33 gauge (BD Ultra Fine #400 ea 02/05/20 Lancets) escitalopram oxalate 20 mg tablet 20 mg PO DAILY #90 tabs 04/22/20 fluconazole 150 mg tablet 150 mg PO Q3D #30 tabs 05/06/20 (Diflucan) ciprofloxacin HCl 500 mg tablet 500 mg PO BID 7 days #14 tabs 03/08/22 (Cipro) metronidazole 500 mg tablet 500 mg PO Q8H 7 days #21 tabs 03/08/22 Allergies Allergy/AdvReac Type Severity Reaction Status Date / Time adhesive Allergy Intermediate Verified 03/08/22 07:47 scopolamine Allergy Intermediate Itchy rash Verified 03/08/22 07:47 amoxicillin Allergy Unknown Verified 03/08/22 07:47 latex Allergy Unknown Verified 03/08/22 07:47 Penicillins Allergy Unknown Verified 03/08/22 07:47 Sulfa (Sulfonamide Allergy Unknown Verified 03/08/22 07:47 Antibiotics) metformin AdvReac Intermediate Diarrhea Verified 03/08/22 07:47 budesonide [From Symbicort] AdvReac Anxiety/Sha Verified 03/08/22 07:47 kiness empagliflozin AdvReac Other (See Unverified 03/08/22 07:52 [From Jardiance] Comment) formoterol fumarate AdvReac Anxiety/Sha Verified 03/08/22 07:47 [From Symbicort] kiness varicella-zoster virus AdvReac Local Verified 03/08/22 07:47 glycoprotein E, recombinant reaction- redness and swelling General Stated Complaint: Abd Prob ROBERTH: 3 Review of Systems Narrative: 6 systems reviewed and otherwise negative. Denies vomiting. Notes the pain radiates to her pubic symphysis. PFSH All Active Problems (Updated 03/08/22 @ 11:00 by Nicko Vaughan MD) Colitis (Acute) Skin infection (Acute) Recurrent cold sores (Acute) Tubular adenoma of colon (Acute) 11/24/18; DR. LI Yeast infection (Acute) Tricuspid insufficiency (Chronic 08/22/14) Sleep disorder (Chronic) Shortness of breath (Chronic 08/02/13) atelectasis; 50% lung function during echo Sacroiliac dysfunction (Chronic 10/22/14) Restrictive lung disease (Chronic 12/11/13) PFT 11/27/13 [place] [facility] [place] Reflux gastritis (Chronic 09/10/14) Polycystic ovaries (Chronic 01/20/10) Morbid obesity with BMI of 40.0-44.9, adult (Chronic 06/13/17) Lymphedema of limb (Chronic 12/11/13) Hyperlipidemia (Chronic 08/15/12) Hiatal hernia (Chronic 12/25/12) Extremity edema (Acute 12/21/13) Essential hypertension (Chronic 12/11/12) Diabetes mellitus (Chronic 05/22/12) Depressive disorder (Chronic 03/19/08) 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) Sinus tachycardia 07/12/14 secondary to the inadvertent use of supplements Sinus tachycardia Upper respiratory tract infection 01/04/17 unspecified Upper respiratory tract infection (01/04/17) Vaginal bleeding Surgical History Endometrial Biopsy NEG H/O esophagogastroduodenoscopy 12/22/12 [facility] H/O surgical procedure endometrial biopsy-neg History of esophagogastroduodenoscopy History of surgical procedure Family History Mother , age 64 Diabetes Essential hypertension Heart disease Myocardial infarction Stroke Father , age 70 Heart disease Myocardial infarction Asthma Sister Rheumatoid arthritis Diabetes Essential hypertension Heart disease Brother Rheumatoid arthritis Diabetes Borderline Brother Diabetes Essential hypertension Rheumatoid arthritis Brother Rheumatoid arthritis Diabetes Essential hypertension Brother Rheumatoid arthritis Diabetes Essential hypertension Maternal Grandmother Diabetes Essential hypertension Heart disease Cancer Uncle Heart disease CABG Maternal Grandfather , age 20? Diabetes Colon cancer Paternal Grandfather , appendix at age 36. Cancer Diabetes Paternal Grandmother Stroke Cancer Diabetes Son Depression Social History Smoking/Tobacco Use Status: Former Tobacco Use tobacco type: cigarettes Quit Date: 02/21/95 Second Hand Exposure: Yes Smoking risk assessment performed?: Yes Alcohol Intake: never Drug use: Occasionally Substance use type: marijuana Caregiver/Support person: No Household members: none Communication Needs: None Do you need help understanding health information?: Never current occupation: disabled Pets and animals: No Sexually active: Yes Do you think of yourself as: straight/heterosexual Current gender identity: female What is your relationship status?: How often do you talk on the phone with friends or family?: three or more times per week How often do you get together with friends or relatives?: never How often do you attend buddhism or alevism services?: decline to answer Do you belong to any clubs or organized social groups?: no Panel score (0-1 are the most socially isolated patients): 1 What type of physical activity do you participate in: walking Duration: < 15 minutes/day Frequency: 5-6 times per week Elda/Cheondoism: Baptism Special elda needs: No Seatbelt use: always Helmet use: No (n/a) Drive intox or ride w/intox utility worker driver: No Do you feel safe at home: Yes Do you feel safe in your relationship?: Yes Victim of physical abuse: No Victim of emotional abuse: Yes Victim of sexual abuse: No Would you like helpful sources: No Exam Narrative Exam Narrative: GEN: awake, alert, oriented 3. Pleasant, well groomed, interactive. HEAD: Normocephalic, atraumatic ENT: Mucous membranes moist, oropharynx unremarkable, External ear exam unremarkable EYES: PERRL, EOMI NECK: Full ROM, no AN, no menigismus CHEST/RESP: Nontender, clear to auscultation bilateral, no wheeze/rhonchi/rales CARDIOVASCULAR: RRR, no murmur, rub sherman. 2+ Rad pulse bilateral ABDOMEN: Soft, tender left upper quadrant, no rebound or guarding, no mass. +Bowel sounds Flank: Left flank tender to percussion, no rash or bruising EXT: Full ROM, no edema, no rash Neuro: Grossly normal neurologic exam, conversant, interactive. Psych: Speech fluent, thoughts congruent, affect normal Course Vital Signs Vital signs: Vital Signs Temperature 36.3 C L 03/08/22 07:44 Pulse 106 H 03/08/22 07:44 Blood Pressure 151/88 H 03/08/22 07:44 Pulse Oximetry 98 03/08/22 07:44 Temperature 36.3 C L 03/08/22 07:44 Temperature Source Temporal Artery Scan 03/08/22 07:44 Pulse 106 H 03/08/22 07:44 Respiratory Effort Non-Labored 03/08/22 07:47 Blood Pressure 151/88 H 03/08/22 07:44 Blood Pressure Position Sitting 03/08/22 07:44 Pulse Oximetry 98 03/08/22 07:44 Oxygen Delivery Method Room Air 03/08/22 07:44 Oxygen Flow Rate 0 03/08/22 07:44
[2022-03-08] MEDS: Lactated Ringers 1,000 ML 1000 ML IV (08:14)
[2022-03-08 08:25] LABS: Bilirubin Negative (Negative); Blood Negative (Negative); Clarity Clear (Clear); Glucose Negative (Negative); Ketones Negative (Negative); Leukocyte Esterase Negative (Negative); Nitrite Negative (Negative); Specific Gravity >= 1.030 (1.005-1.025); Urobilinogen 0.2 EU/dL (Up TO 0.2); pH 5.5 (5-8)
[2022-03-08 08:27] LABS: Abs Immature Grans 0.03 10^3/uL (0.0-0.06); Absolute Basophil Count 0.05 10^3/uL (0.0-0.2); Absolute Eosinophil Count 0.19 10^3/uL (0.0-0.7); Absolute Monocyte Count 0.78 10^3/uL (0.1-0.8); Absolute Neutrophil Count 7.06 10^3/uL (1.2-6.7); Basophils % 0.4; Eosinophils % 1.7; HCT 46.2 % (36.0-46.0); HGB 15.6 g/dL (11.2-15.7); Immature Grans % 0.3; Lymphocytes % 28.5; MCH 29.3 pg (27.0-33.0); MCHC 33.8 % (32.0-36.0); MCV 87 fL (80-95); Monocytes % 6.9; Neutrophils % 62.2; Platelet Count 378 10^3/uL (130-400); RBC 5.32 10^6/uL (3.93-5.22); RDW 15.6 % (11.7-14.6); RDW-SD 49.1 fL; WBC 11.35 10^3/uL (4.4-10.8)
[2022-03-08 08:29] LABS: Absolute Lymphocyte Count 3.23 10^3/uL (1.2-3.4)
--- NOTE | 2022-03-08 08:30 | DI.CT_ITS ---
Exam(s) CT RENAL COLIC WO EXAM: CT RENAL COLIC WO CLINICAL HISTORY: L flank, L UQ pain. TECHNIQUE: Imaging Protocol: Axial computed tomography images with coronal and sagittal reformatted images were created and reviewed CONTRAST MATERIAL: Intravenous: none Oral: None COMPARISON: No exams were available for comparison FINDINGS: VISUALIZED LUNG BASES: No significant nodules. No pleural effusions.. Sternotomy wires noted. ABDOMEN: There is no ascites. LIVER: There are no obvious focal hepatic lesions evident of this noninfused study. Liver only parti ally included. GALLBLADDER/BILIARY: Gallbladder surgically absent. CBD is not dilated. PANCREAS: No evidence of pancreatic mass nor dilatation of the pancreatic duct. SPLEEN: Partially included spleen contains a tiny cyst. ADRENALS: There are no significant adrenal masses. KIDNEYS:No cysts evident. No solid renal masses. No calculi nor hydronephrosis. . ABDOMINAL AORTA: Abdominal aorta is not enlarged. LYMPH NODES: There is no retroperitoneal nor paraaortic adenopathy. ABDOMINAL WALL: No evidence of significant anterior abdominal wall nor inguinal hernia. GI: There is some inflammatory streaking around the descending-left colon, above the level of the lef t iliac crest. No distinct diverticuli identified at this level.. PELVIS: LYMPH NODES: There is no intrapelvic nor inguinal adenopathy. GI: No evidence of appendicitis.As above. URINARY BLADDER: No calculi nor obvious masses evident REPRODUCTIVE: Uterus and adnexal regions unremarkable. No free fluid. OSSEOUS: No significant osseous lesions. IMPRESSION: 1. No evidence of acute acute urinary tract findings. No radiopaque calculi. No hydronephrosis. 2. Main finding here involves the left side of the colon which exhibits significant abnormal adjacent inflammatory-type streaking but without evidence of obvious diverticuli. Possible subtle colitis pa ttern. Requires appropriate follow-up. 3. Gallbladder surgically absent. The biliary tree is not dilated. Discussed with ER physician RADIATION DOSE DELIVERED: 1,071.9mGy.cm Total DLP DATA REPOSITORY: All CT scans at this facility are submitted to the National Radiology Data Registry (NRDR) Dose Index Registry (DIR) with the [employer] (ACR). RADIATION OPTIMIZATION: All CT scans at this facility use at least one of these dose optimization te chniques: automated exposure control; mA and/or kV adjustment per patient size (includes targeted exa ms where dose is matched to clinical indication); or iterative reconstruction.
[2022-03-08 08:43] LABS: Bacteria Negative HPF (Negative); C & S Indicated? No; Casts Negative LPF (Negative); Crystals Negative HPF (Negative); Epithelial Cells Moderate HPF (Negative); Mucus Trace (Negative); RBC Negative HPF (0-2); WBC Negative HPF (0-5)
[2022-03-08 08:46] LABS: ALT 27 U/L (14-59); AST 21 U/L (15-37); Albumin 3.6 g/dL (3.4-5.0); Alkaline Phosphatase 141 U/L (46-116); Anion Gap 9.1 mmol/L (3-11); BUN 12 mg/dL (7-18); Bilirubin, Total 0.8 mg/dL (0.2-1.0); CO2 24.9 mmol/L (21.0-32.0); CREATININE 1.1 mg/dL (0.55-1.02); Chloride 104 mmol/L (98-107); Estimated GFR 59.34 (mL/min/1.73m2); Glucose 207 mg/dL (74-106); Magnesium 1.8 mg/dL (1.8-2.4); Sodium 138 mmol/L (136-145); Total Protein 7.5 g/dL (6.4-8.2)
[2022-03-08 11:18] VITALS: BP 147/78; PULSE 92; RESP 16; TEMP 36.9; O2SAT 98
== END 2022-03-08 11:17 | disposition home or self-care (01) ==
PROVIDERS: Emergency Provider Emergency Medicine; PCP Nurse Practitioner Family
DX: K52.9 Noninfective gastroenteritis and colitis, unspecified (principal); I10 Essential (primary) hypertension
CPT/HCPCS: 80053; 81025; 96360; 99284; 74176; 81003; 81015; 83735; 85025

== ENCOUNTER 2022-05-03 18:20 | Outpatient (REF) | payer MEDICARE, MEDICAID, SELFPAY ==
[2022-05-03 20:50] LABS: Vitamin D 25 Total 32.5 ng/mL (30-100)
== END 2022-05-03 18:21 | disposition home or self-care (01) ==
LOC: NCHCN 18:20
PROVIDERS: PCP Nurse Practitioner Family; Visit Provider Nurse Practitioner Family
DX: E03.9 Hypothyroidism, unspecified (principal); I10 Essential (primary) hypertension; N18.9 Chronic kidney disease, unspecified; K74.69 Other cirrhosis of liver
CPT/HCPCS: 82306; 84443

== ENCOUNTER 2022-05-17 02:00 | Outpatient (CLI) | payer MEDICARE, MEDICAID, SELFPAY ==
--- NOTE | 2022-05-17 08:10 | DI.MAMMO_ITS ---
Exam(s) MAMMO SCREENING EXAM: MAMMO SCREENING CLINICAL HISTORY: SCREENING FOR BREAST CANCER Z12.39 TECHNIQUE: Mammograms were interpreted according to the usual protocol including computer analysis w [employer] CAD system, tomosynthesis and C-view imaging. COMPARISON: 2016 through 2020 FINDINGS: The breasts are composed of mainly fatty density , Breast Density category A. No suspicious masses or suspicious microcalcifications are seen. No skin thickening or abnormal axillary lymph nodes are seen. There has been no significant change from prior exams. IMPRESSION: BI-RADS Category 1, Negative mammogram Yearly screening mammography is recommended. Breast Density - Category A, fatty density. A negative radiographic report should not delay biopsy if a dominant or clinically suspicious mass is present. Up to ten percent of cancers are not identified on mammography. A negative report may reinforce clinical impression. Adenosis and dense breasts may obscure an underlying neoplasm. False positive reports average 6 to 10%. Patient will receive a letter notifying them of these results.
== END 2022-05-17 02:20 ==
LOC: DI 02:00
PROVIDERS: PCP Nurse Practitioner Family; Visit Provider Nurse Practitioner Family
DX: Z12.31 Encounter for screening mammogram for malignant neoplasm of breast (principal)
CPT/HCPCS: 77063; 77067

== ENCOUNTER 2022-05-17 12:10 | Outpatient (CLI) | payer MEDICARE, MEDICAID, SELFPAY ==
[2022-05-17 15:58] LABS: HCT 46.9 % (36.0-46.0); HGB 15.6 g/dL (11.2-15.7); MCH 29.2 pg (27.0-33.0); MCHC 33.3 % (32.0-36.0); MCV 88 fL (80-95); MPV 10.5 fL (8.0-11.0); Platelet Count 365 10^3/uL (130-400); RBC 5.35 10^6/uL (3.93-5.22); RDW 14.5 % (11.7-14.6); RDW-SD 46.6 fL; WBC 10.01 10^3/uL (4.4-10.8)
[2022-05-17 16:19] LABS: Albumin 3.8 g/dL (3.4-5.0)
== END 2022-05-17 12:11 | disposition home or self-care (01) ==
LOC: LBO 12:11
PROVIDERS: PCP Nurse Practitioner Family; Visit Provider Nurse Practitioner Family
DX: K52.9 Noninfective gastroenteritis and colitis, unspecified (principal); N18.9 Chronic kidney disease, unspecified
CPT/HCPCS: 36415; 85027; 82040

== ENCOUNTER 2022-07-21 13:55 | Outpatient (RCR) | payer MEDICARE, MEDICAID, SELFPAY | END 2022-07-21 23:59 | disposition home or self-care (01) | LOC: PRC 13:55 | PROVIDERS: PCP Nurse Practitioner Family; Referring Provider Student in an Organized Health Care Education/Training Program; Visit Provider Student in an Organized Health Care Education/Training Program | DX: J98.4 Other disorders of lung (principal) | CPT/HCPCS: 94626 ==

== ENCOUNTER 2022-08-18 14:00 | Outpatient (RCR) | payer MEDICARE, MEDICAID, SELFPAY | END 2022-08-20 23:59 | disposition home or self-care (01) | LOC: PRC 14:00 | PROVIDERS: PCP Nurse Practitioner Family; Referring Provider Student in an Organized Health Care Education/Training Program; Visit Provider Student in an Organized Health Care Education/Training Program | DX: J98.4 Other disorders of lung (principal) | CPT/HCPCS: 94626 ==

== ENCOUNTER 2022-09-02 13:13 | Outpatient (REF) | payer MEDICARE, MEDICAID, SELFPAY ==
[2022-09-02 15:10] LABS: Abs Immature Grans 0.03 10^3/uL (0.0-0.06); Absolute Basophil Count 0.07 10^3/uL (0.0-0.2); Absolute Eosinophil Count 0.25 10^3/uL (0.0-0.7); Absolute Lymphocyte Count 3.74 10^3/uL (1.2-3.4); Basophils % 0.6; Eosinophils % 2.2; HCT 49.1 % (36.0-46.0); HGB 16.2 g/dL (11.2-15.7); Immature Grans % 0.3; Lymphocytes % 32.8; MCH 28.9 pg (27.0-33.0); MCV 88 fL (80-95); MPV 10.8 fL (8.0-11.0); Monocytes % 6.1; Platelet Count 340 10^3/uL (130-400); RDW 14.9 % (11.7-14.6); RDW-SD 47.9 fL
[2022-09-02 15:16] LABS: Absolute Neutrophil Count 6.61 10^3/uL (1.2-6.7)
[2022-09-02 15:18] LABS: ALT 30 U/L (14-59); AST 24 U/L (15-37); Albumin 3.9 g/dL (3.4-5.0); Alkaline Phosphatase 138 U/L (46-116); Anion Gap 9.9 mmol/L (3-11); BUN 13 mg/dL (7-18); Bilirubin, Total 0.5 mg/dL (0.2-1.0); CO2 27.1 mmol/L (21.0-32.0); CREATININE 1.1 mg/dL (0.55-1.02); Calcium 9.9 mg/dL (8.5-10.1); Chloride 106 mmol/L (98-107); Estimated GFR 58.97 (mL/min/1.73m2); GGT 77 U/L (5-55); Glucose 142 mg/dL (74-106); Magnesium 1.9 mg/dL (1.8-2.4); Potassium 4.4 mmol/L (3.5-5.1); Sodium 143 mmol/L (136-145); Total Protein 7.1 g/dL (6.4-8.2)
[2022-09-02 15:56] LABS: Vitamin B12 1786 pg/mL (193-986)
[2022-09-02 16:26] LABS: Prothrombin Time 9.9 sec (9.3-11.0)
[2022-09-03 10:09] LABS: AFP Tumor Marker 3.7 ng/mL (<8.1)
== END 2022-09-02 13:14 | disposition home or self-care (01) ==
LOC: NCHCN 13:13
PROVIDERS: PCP Nurse Practitioner Family; Visit Provider Nurse Practitioner Family
DX: Z00.00 Encounter for general adult medical examination without abnormal findings (principal); K74.60 Unspecified cirrhosis of liver; I12.9 Hypertensive chronic kidney disease with stage 1 through stage 4 chronic kidney disease, or unspecified chronic kidney disease; N18.9 Chronic kidney disease, unspecified; N20.0 Calculus of kidney; E03.9 Hypothyroidism, unspecified; E11.9 Type 2 diabetes mellitus without complications; J98.4 Other disorders of lung
CPT/HCPCS: 80053; 82105; 82607; 82977; 83735; 85025; 85610; 85730

== ENCOUNTER → 2023-03-14 03:24 | Outpatient (CLI) | payer MEDICARE, MEDICAID, SELFPAY ==
--- NOTE | 2023-03-14 | DI.US_ITS ---
Exam(s) US ABDOMEN LIMITED EXAM: US ABDOMEN LIMITED CLINICAL HISTORY: HEPATIC FIBROSIS K74.00 FATTY LIVER K76.0 HCC SURVEILLANCE TECHNIQUE: Ultrasound abdomen performed using standard protocol. COMPARISON: US US ABDOMEN LIMITED from 01/13/2022 FINDINGS: PANCREAS: Normal where visualized. LIVER: There is diffuse increased echogenicity of the liver consistent with fatty infiltration. Hepa topetal flow in the Portal Vein. The liver measures in 16 cm length. GALLBLADDER:Status post cholecystectomy. BILIARY SYSTEM: Common bile duct measures < 7 mm. No intrahepatic biliary ductal dilation. CHARLES'S SIGN: Negative. RIGHT KIDNEY: Kidney is normal in size. No evidence of renal calculi. No evidence of hydronephrosis. No renal mass or cyst identified. ASCITES: None seen. IMPRESSION: 1. Diffuse fatty infiltration of the liver. No evidence of a hepatic mass is seen sonographically. 2. Status post cholecystectomy. DATA REPOSITORY:
== END ==
PROVIDERS: PCP Nurse Practitioner Family; Visit Provider Internal Medicine Gastroenterology
DX: K76.0 Fatty (change of) liver, not elsewhere classified
CPT/HCPCS: 36415; 80053; 80061; 82306; 76705; 82105; 82607; 83036; 83735; 84443; 85025; 85610; 85730

== ENCOUNTER 2023-03-14 08:55 | Outpatient (CLI) | payer MEDICARE, MEDICAID, SELFPAY ==
[2023-03-14 08:55] LABS: Abs Immature Grans 0.04 10^3/uL (0.0-0.06); Absolute Basophil Count 0.07 10^3/uL (0.0-0.2); Absolute Eosinophil Count 0.15 10^3/uL (0.0-0.7); Absolute Monocyte Count 0.55 10^3/uL (0.1-0.8); Absolute Neutrophil Count 7.08 10^3/uL (1.2-6.7); Basophils % 0.6; Eosinophils % 1.3; HCT 50.1 % (36.0-46.0); HGB 16.7 g/dL (11.2-15.7); Immature Grans % 0.4; Lymphocytes % 29.5; MCH 29.7 pg (27.0-33.0); MCHC 33.3 % (32.0-36.0); MCV 89 fL (80-95); MPV 10.2 fL (8.0-11.0); Monocytes % 4.9; Neutrophils % 63.3; Platelet Count 335 10^3/uL (130-400); RBC 5.62 10^6/uL (3.93-5.22); RDW 14.6 % (11.7-14.6); RDW-SD 47.5 fL; WBC 11.19 10^3/uL (4.4-10.8)
[2023-03-14 09:08] LABS: INR 1.1 (0.9-1.1); PTT Activated 26.3 sec (23.6-32.8); Prothrombin Time 10.6 sec (9.1-11.1)
[2023-03-14 10:19] LABS: ALT 37 U/L (14-59); AST 31 U/L (15-37); Albumin 3.8 g/dL (3.4-5.0); Alkaline Phosphatase 129 U/L (46-116); Anion Gap 10.3 mmol/L (3-11); BUN 11 mg/dL (7-18); Bilirubin, Total 0.9 mg/dL (0.2-1.0); CO2 26.7 mmol/L (21.0-32.0); Calcium 9.4 mg/dL (8.5-10.1); Calculated LDL 74 mg/dL (<100); Chloride 103 mmol/L (98-107); Cholesterol 166 mg/dL (<200); Estimated GFR 66.12 (mL/min/1.73m2); Glucose 148 mg/dL (74-106); HDL Cholesterol 46 mg/dL (40-60); Magnesium 1.9 mg/dL (1.8-2.4); Potassium 4.6 mmol/L (3.5-5.1); Sodium 140 mmol/L (136-145); TSH (W/Ref FT4) 1.21 uIU/mL (0.36-3.74); Total Protein 7.5 g/dL (6.4-8.2); Triglyceride 230 mg/dL (<150)
[2023-03-14 10:22] LABS: Vitamin B12 > 2000 pg/mL (193-986)
[2023-03-14 18:04] LABS: AFP Tumor Marker 4.2 ng/mL (<8.1)
== END 2023-03-14 08:56 | disposition home or self-care (01) ==
LOC: LBO 08:56
PROVIDERS: PCP Nurse Practitioner Family; Visit Provider Nurse Practitioner Family
DX: E03.9 Hypothyroidism, unspecified (principal); E55.9 Vitamin D deficiency, unspecified; K74.60 Unspecified cirrhosis of liver
CPT/HCPCS: 36415; 80053; 80061; 82306; 82105; 82607; 83036; 83735; 84443; 85025; 85610; 85730

== ENCOUNTER 2023-06-16 06:03 | Outpatient (CLI) | payer MEDICARE, MEDICAID, SELFPAY ==
[2023-06-16 12:26] LABS: HCT 50.5 % (36.0-46.0); HGB 16.7 g/dL (11.2-15.7); MCH 29.9 pg (27.0-33.0); MCHC 33.1 % (32.0-36.0); MCV 91 fL (80-95); MPV 10.6 fL (8.0-11.0); Platelet Count 354 10^3/uL (130-400); RBC 5.58 10^6/uL (3.93-5.22); RDW 14.4 % (11.7-14.6); RDW-SD 47.8 fL
[2023-06-16 12:34] LABS: Prothrombin Time 10.3 sec (9.1-11.1)
[2023-06-16 12:40] LABS: ALT 33 U/L (14-59); AST 21 U/L (15-37); Albumin 3.8 g/dL (3.4-5.0); Alkaline Phosphatase 148 U/L (46-116); Anion Gap 11.4 mmol/L (3-11); BUN 12 mg/dL (7-18); Bilirubin, Total 0.5 mg/dL (0.2-1.0); CO2 25.6 mmol/L (21.0-32.0); CREATININE 1.1 mg/dL (0.55-1.02); Calcium 9.4 mg/dL (8.5-10.1); Chloride 105 mmol/L (98-107); Estimated GFR 58.61 (mL/min/1.73m2); Glucose 115 mg/dL (74-106); Potassium 4.1 mmol/L (3.5-5.1); Sodium 142 mmol/L (136-145); Total Protein 7.5 g/dL (6.4-8.2)
[2023-06-16 12:58] LABS: Hemoglobin A1C 7.9 % (<5.7)
[2023-06-16 20:34] LABS: Vitamin D 25 Total 60.3 ng/mL (30-100)
[2023-06-17 09:08] LABS: AFP Tumor Marker 2.8 ng/mL (<8.1)
== END 2023-06-16 06:04 | disposition home or self-care (01) ==
LOC: LOS 06:03
PROVIDERS: PCP Nurse Practitioner Family; Visit Provider Nurse Practitioner Family
DX: E11.9 Type 2 diabetes mellitus without complications (principal); R94.5 Abnormal results of liver function studies
CPT/HCPCS: 36415; 80053; 82306; 85027; 82105; 83036; 85610

== ENCOUNTER → 2023-09-06 01:28 | Outpatient (CLI) | payer MEDICARE, MEDICAID, SELFPAY ==
--- OUTSIDE RECORDS SUMMARY | 2023-09-06 01:37 | XMS_ITS | Encounter Summary ---
Author Organization [facility] [place] [address] Care Team Providers Care Baggage Agent Name Role Phone Noemi Sharma JANNA Primary Care Provider [phone] Reason for Visit * Reason Onset Date Comments Medication Refill 05/16/2023 Encounter Details Date Type Department Care Team (Late st Contact Info) Description 05/16/2023 Refill Cardiology at [address] [address] Homer Dobbs MD [facility] [place] [address] Medication Refill Social History Tobacco Use Types Packs/Day Years Used Date Smoking Tobacco: Every Day Cigarettes 0.3 15 Started: 02/19/1981; Last attempted to quit: 02/20/1996 Smokeless Tobacco: Never Alcohol Use Standard Drinks/Week Comments No 0 (1 standard drink = 0.6 oz pur e alcohol) Sex and Gender Information Value Date Recorded Sex Assigned at Female 07/09/2020 7:39 PM EDT Gender Identity Female 07/09/2020 7:39 PM EDT Sexual Orientation Straight 08/27/2020 7: 10 PM EDT documented as of this encounter Plan of Treatment Upcoming Encounters Date Type Department Care Team (Late st Contact Info) Description 09/14/2023 11:00 AM EDT Office [place] [address] Mague Johnson MD [facility] [place] [address] documented as of this encounter Visit Diagnoses Diagnosis Tachycardia, unspecified- Primary documented in this encounter Care Teams Baggage Agent Relationship Specialty Start Date End Date Noemi Sharma APRN [address] [place] [address] PCP - General Family Medicine 07/28/20 documented as of this encounter
--- OUTSIDE RECORDS SUMMARY | 2023-09-06 01:37 | XMS_ITS | Clinical Summary ---
Author Organization [facility] [place] [address] Care Team Providers Care Biofuels Technology Development Manager Name Role Phone Noemi Sharma APRN Primary Care Provider [phone] Allergies Active Allergy Reactions Criticality Noted Date Comments Adhesive Bandage Localized Reaction Amoxicillin Trihydrate Rash Doxycycline 10/30/2021 Rash, diarrhea, upset stomach Empagliflozin 09/26/2020 Latex Rash 04/03/2012 Metformin Diarrhea Medium 02/05/2020 Metronidazole 03/25/2022 Penicillins Rash 04/03/2012 Scopolamine Itching,Rash Medium 02/20/2013 Itching erythematous rash resolved with scop patch removal. Sulfa (Sulfonamide Antibiotics) Rash Budesonide-Formoterol 10/30/2021 Upset stomach and dizziness Varicella-Zoster Virus Glycoprotein E, Recombinant 02/05/2020 Other reaction(s): Local reaction- redness and swelling Medications Medication Sig Dispensed Refills Start Date End Date Status escitalopram (LEXAPRO) 20 mg Tablet Take 20 mg by mouth daily. Active albuterol 90 mcg/actuation HFA Aerosol Inhaler Inhale 2 puffs into the lungs 4 times daily as needed for Wheezing (VENTOLIN). Use with spacer Active glimepiride (AMARYL) 4 mg Tablet Take 1-2 tablets by mouth daily. 180 tablet 3 09/26/2020 Active fluticasone propionate (Flonase) 50 mcg/actuation [place], Suspension INSTILL 1 SPRAY INTO BOTH NOSTRILS TWICE A DAY 09/05/2020 Active Ozempic 1 mg/dose (2 mg/1.5 mL) Pen Injector Inject 1 mg subcutaneously every 7 days. 9 mL 3 05/18/2021 Active Additional Information Patient taking differently: 2 mgSubcutaneous EVERY 7 DAYS, Reported on 06/13/2023 melatonin 5 mg Tablet TAKE ONE TO TWO TABLETS BY MOUTH AT BEDTIME 10/02/2021 Active omeprazole (PriLOSEC) 20 mg Capsule, Delayed Release(E.C.) Take 20 mg by mouth daily. 07/23/2021 Active atorvastatin (Lipitor) 20 mg TabletIndications:H yperlipidemia, unspecified hyperlipidemia type Take 1 tablet by mouth daily. 90 tablet 3 12/04/2021 Active cyanocobalamin, Vitamin B-12, (Vitamin B-12) 1,000 mcg Tablet Take 1,000 mcg by mouth daily. Active cholecalciferol, Vitamin D3, 50 mcg (2,000 unit) Capsule Take 2,000 Units by mouth daily. Active lactobacillus rhamnosus, GG, (CULTURELLE) 10 billion cell Capsule Take 1 capsule by mouth daily. Active Farxiga 5 mg tablet Take 5 mg by mouth daily. 05/04/2022 Active UNABLE TO FIND Med Name: plexus supplements Active spironolactone (Aldactone) 50 mg tabletIndications:F luid retention,Chronic right-sided heart failure TAKE ONE TABLET BY MOUTH EVERY DAY 90 tablet 3 07/21/2023 Active Active Problems Problem Noted Date Diagnosed Date Asthma 11/02/2021 Sinus tachycardia 11/02/2021 Morbid obesity with body mas s index (BMI) of 40.0 to 44.9 in adult 08/19/2016 Overview (11/02/2021): BMI=43 Hyperkalemia 08/01/2015 Tricuspid valve insufficiency 08/22/2014 Lymphedema of extremity 12/11/2013 Restrictive lung disease 12/11/2013 Pain in left arm 10/02/2013 Chronic diastolic congestive heart failure 03/23 Overview (03/31/2021): TTE 05/12/2016: SUMMARY: 1. Patient is status post pericardial stripping. There is no evidence of residual pericardial constriction. 2. Asymmetric septal wall hypertrophy is observed but there is no evidence of LVOT obstruction. Global left ventricular systolic function appears hyperdynamic. Ejection fraction is estimated to be 80%. GLS -16.4%. There are no left ventricular segmental wall motion abnormalities. Left ventricular diastolic function is normal. 3. Right ventricular global systolic function is mildly reduced. The estimated pulmonary artery systolic pressure is 28 mmHg. The estimated right atrial pressure is 3 mmHg. 4. There is no hemodynamically significant valve disease. TTE 10/15/2020: SUMMARY: ??1. The left ventricular chamber size is normal. There is normal global left ventricular systolic function. The quantitative left ventricular ejection fraction by biplane Aguilar's method is 63%. There are no left ventricular segmental wall motion abnormalities. 2. The right ventricle is normal in size. Right ventricular global systolic function is low normal. The estimated pulmonary artery systolic pressure is 28 mmHg. 3. There is mild (1+/4+) mitral regurgitation present. 4. There is mild to moderate (1-2+/4+) tricuspid regurgitation present. 5. The patient is noted to be status post pericardiectomy. There is no echo evidence of recurrent constrictive physiology. 6. See below for additional findings. ? SOB (shortness of breath) 03/21/2013 Overview (10/03/2020): May be multifactorial Restrictive lung disease Obesity H/o constrictive pericarditis TTE 05/12/2016: SUMMARY: ?? 1. Patient is status post pericardial stripping. There is no evidence of residual pericardial constriction. 2. Asymmetric septal wall hypertrophy is observed but there is no evidence of LVOT obstruction. Global left ventricular systolic function appears hyperdynamic. Ejection fraction is estimated to be 80%. GLS -16.4%. There are no left ventricular segmental wall motion abnormalities. Left ventricular diastolic function is normal. 3. Right ventricular global systolic function is mildly reduced. The estimated pulmonary artery systolic pressure is 28 mmHg. The estimated right atrial pressure is 3 mmHg. 4. There is no hemodynamically significant valve disease. Assessment & Plan (08/21/2016 2:48 PM EDT): Formal MVO2 stress test result pending. Likely multifactorial components to her functional limitation. Consider polysomnography and re-evaluation by pulmonology Consider R/L cardiac cath with rest/exercise hemodynamics Chest pain 03/21/2013 Overview (01/10/2020): Images from the original note were not included. Right and Left Cardiac Catheterization 03/19/2013: [employer] Stress 10/14/2017: FINDINGS: No fixed or reversible perfusion defects are present. Functional analysis: Myocardial function: There is normal wall thickening and wall motion. Left ventricular ejection fraction: 78 % (normal greater than than 50%). No significant incidental CT findings. IMPRESSION No ischemia or scar. Left ventricular function is normal. 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 Overview (11/02/2021): S/p Pericardial stripping at [facility] [place] 05-04-13 Abdominal pain, RUQ (right upper quadrant) 02/03 Abnormal LFTs (liver function tests) 02/03/2013 Hiatal hernia 12/25/2012 Primary hypertension 12/11/2012 Hyperlipidemia 08/15/2012 Anemia 08/15/2012 Diabetes mellitus 05/22/2012 Polycystic ovarian syndrome 01/20/2010 Depressive disorder 03/19/2008 Anxiety BHARATI (obstructive sleep apnea) Encounters Date Type Department Care Team Description 07/19/2023 Refill Cardiology at [address] [phone] Homer Dobbs MD Medication Refill 07/12/2023 Telephone Sleep Center at [facility] [address] [place] [address] Sloane Castillo APRN Other 07/07/2023 Abstract Cardiology at [address] [phone] Ledy Yañez, RN 06/13/2023 1:20 PM EDT Office Visit Cardiology at [address] [phone] Homer Dobbs MD h/o Constrictive pericarditis 06/13/2023 Travel from Last 3 Months Immunizations Name Administration Dates Next Due Influenza PF, Split 11/30/2016 Influenza Trivalent w/Preservative 11/26/2013 TD Adult 02/01/2005 Family History Medical History Relation Comments Arthritis Brother 1 Diabetes Brother 1 Arthritis Brother 2 Diabetes Brother 2 Diabetes Brother 3 Cerebrovascular Accident Mother Diabetes Mother Heart Disease Mother Autoimmune Disorder Other Type 1 Diabetes Other Arthritis Sister Diabetes Sister Relation Status Comments Brother 1 Brother 2 Brother 3 Mother Other Sister Social History Tobacco Use Types Packs/Day Years [...] Orientation Straight 08/27/2020 7: 10 PM EDT Last Filed Vital Signs Vital Sign Reading Time Taken Comments Blood Pressure 110/80 06/13/2023 1:13 PM EDT Pulse 93 06/13/2023 1:13 PM EDT Temperature 36.1 ??C (97 ??F) 05/18/2021 12: 18 PM EDT Respiratory Rate 10 07/02/2022 4:09 PM EDT Oxygen Saturation 99% 06/13/2023 1:13 PM EDT Inhaled Oxygen Concentration - - Weight 79.7 kg (175 lb 12.8 oz) 06/13/2023 1:13 PM EDT Height 157.5 cm (5' 2) 06/13/2023 1:13 PM EDT Body Mass Index 32.15 06/13/2023 1:13 PM EDT Plan of Treatment Upcoming Encounters Date Type Department Care Team (Late st Contact Info) Description 09/14/2023 11:00 AM EDT Office [place] [phone] Mague Johnson MD [facility] [place] [address] Health Maintenance Due Date Last Done Comments CT Colonography 1966 Colonoscopy 1966 Colorectal Cancer Screening 1966 FIT DNA 1966 FIT 1966 Sigmoidoscopy (10 year) with FIT yearly 1966 Sigmoidoscopy 1966 Pneumococcal Vaccine: At-Ris k 5-64yrs (1 of 2 - PCV) 1972 DM Hemoglobin A1c 1976 DM Opthalmology Exam 1976 DM Urine Microalbumin yearly 1976 HIV screen 1984 Hepatitis B vaccine (0-59 yrs) (1) 1985 Tdap adult 1985 HPV test 1996 PAP Smear 1996 Breast Cancer Share Decision Needed 2006 Breast Cancer screening 2006 Tetanus vaccine 02/01/2015 02/01/2005 Zoster vaccine (1 of 2) 2016 DM Creatinine yearly 03/27/2022 03/27/2021, 11/10/2016, 05/12/2016, Additional history exists Covid-19 Vaccine (1 - 2022-2 4 season) 2022 Influenza (Flu) vaccine (1 o f 1 - Influenza standard series) 10/23/2023 11/30/2016, 11/26/2013 Hepatitis C Screening Completed 01/30/2013 Procedures Procedure Name Priority Date/Time Associated Diagnosis Comments LAB SCAN 06/16/2023 12:00 AM EDT LAB SCAN 06/16/2023 12:00 AM EDT GENERAL CHEMISTERY EXTERNAL LAB PANEL Routine 03/27/2021 HEPATITIS C ANTIBODY Routine 01/30/2013 4:16 PM EST Abdominal pain, RUQ (right upper quadrant) from Last 3 Months or Most Recently Relevant to Health Maintenance Results * SCAN DOC: LAB (06/16/2023 12:00 AM EDT) Only the most recent of2 resultswithin the time period is included. Narrative 06/16/2023 12:00 AM EDT Ordered by an unspecified provider. Scanning Provider MEDIA MGR SCAN EXT O RDR/RSLT * General Chemistery External Lab Panel (03/27/2021) Glucose Lvl 98 Sodium 140 Potassium 4.7 Chloride 103 CO2 26 Creatinine 1.1 BUN 16 Calcium 9.7 Albumin 4.0 AST 24 ALT 37 Alk Phos 144 Total Bilirubin 0.5 Total Protein 7.4 Estimated GFR 51.76 GGT 79 03/27/2021 Historical Provider POINT OF CARE TWIN T ORDERABLES * Hepatitis C Antibody (01/30/2013 4:16 PM EST) Hepatitis C Ab Negative Negative CERRUT RAMIREZENNIUM Comment: Please note that as of 09/26/2012, the testing methodology for this assay has changed. However there is no change in the interpretation of the results. Blood specimen (specimen) 01/30/2013 4:16 PM EST 01/30/2013 4:23 PM EST Narrative Resulting Agency Comment Spec In Lab Octaviano Torrez MD IMMUNOLOGY ORDERABLE S KARO RUBIN from Last 3 Months or Most Recently Relevant to Health Maintenance Advance Directives Documents on File Type Date Recorded Patient Case Packer Lissa sharp Personal Case Packer 04/24/2021 11:41 AM juancho patel Personal Case Packer 03/28/2017 4:55 PM Jace Beltre Advance Directives and Elaine quiroz Will 03/08/2013 11:04 AM * Full Code (Latest Code Status on File) Date Activated Date Inactivated Comments 03/21/2013 5:01 AM 03/22/2013 3:57 PM Question Answer Comments Order Status: Initial Order Does patient have decision m aking capacity? Yes, Order is based on Patients wishes. * Full Code Date Activated Date Inactivated Comments 02/19/2013 4:40 PM 02/22/2013 12:30 PM Question Answer Comments Order Status: Initial Order Does patient have decision m aking capacity? Yes, Order is based on Patients wishes. * Full Code Date Activated Date Inactivated Comments 02/19/2013 9:14 AM 02/19/2013 4:38 PM Care Teams Biofuels Technology Development Manager Relationship Specialty Start Date End Date Noemi Sharma APRN [address] [place] [address] PCP - General Family Medicine 07/28/20
--- OUTSIDE RECORDS SUMMARY | 2023-09-06 01:37 | XMS_ITS | Encounter Summary ---
Author Organization [facility], Later [facility] [place] [address] Care Team Providers Care Electrical Experimental Mechanic Name Role Phone Zachary Noeminicole Esteban APRN Primary Care Provider [phone] Encounter Details Date Type Department Care Team (Late st Contact Info) Description 05/05/2023 Telephone Sleep Center at [facility] [address] [place] [address] Veronica Rivera APRN [facility] [place] [address] Social History Tobacco Use Types Packs/Day Years [...] PM EDT documented as of this encounter Miscellaneous Notes * Telephone Encounter - Elana Guzman - 05/05/2023 2:41 PM EDT Lvm to reschedule with Puja (PSC please transfer call to sleep clinic) * Telephone Encounter - Raissa Jimenez - 05/05/2023 2:10 PM EDT Message: Patient calling back to reschedule her appointment with Veronica Rivera (see patient portal message from yesterday). Please call back to advise. Ask caller their first and last name and relationship to the patient: Teresita Fernández Best time to call back: any Ok to leave a message: yes Ok to send my- message: yes Offered Appointment: no MA/Nurse/Student Accounts Coordinator contacted via: Message: yes Call: yes Pager: no documented in this encounter Plan of Treatment Upcoming Encounters Date Type Department Care Team (Late st Contact Info) Description 09/14/2023 11:00 AM EDT Office [place] [address] Mague Johnson MD [facility] [place] [address] documented as of this encounter Visit Diagnoses Not on filedocumented in this encounter Care Teams Electrical Experimental Mechanic Relationship Specialty Start Date End Date Noemi Sharma APRN [address] [place] [address] PCP - General Family Medicine 07/28/20 documented as of this encounter
--- OUTSIDE RECORDS SUMMARY | 2023-09-06 01:37 | XMS_ITS | Continuity of Care Document ---
Author Organization [facility] Address [address] [place] [address] Assessment Encounter Date Assessment Date Assessment LastModified by Organization Details LastModified Time 06/21/2023 06/21/2023 Flu vaccine: current Comirnaty: declines Td: current due 2030 PCV20: declines Shingrix: Declines 2nd r/t reaction RSV: n/a Pap/ HPV: Due Feb 13 Mammogram: current, last 05/13, desires every 2 years CRC: current; last 2022, recommend repeat 2027 DEXA: n/a The total time devoted to today's encounter, including both the brkt-fa-gvqs time with the patient and/or family/caregi jillian and mvy-zwlg-uv-f mukul time I personally spent is 32 minutes. Follow-up in 3 Months. Call or RTO sooner if needs arise. Not available 06/21/2023 09:23:29 Plan of Treatment Reminders Order Date Submit Date Provider Last Modified By Organization Details Last Modified Time Details Appointments Follow Up 2023 03:00P Yamile HYDE Not available Not available Not available Lab None recorded . Referral None recorded . Procedures None recorded . Surgeries None recorded . Imaging US, abdomen, limited - due in August 242023 024 [email or web address] [facility] (Radiology), [address] [place] [address] [place], [address], 08/31/2023 08:11:08 Medication Orders None recorded . Patient TargetsNo targets recorded. Patient Instructions Encounter Date Encounter Id Patient Instructions Last Modified By Organization Details Last Modified Time 06/21/2023 [id number] starting a weigh t loss plan: care instructions Not available 06/21/2023 09:23:24 diet Not available 2023 09:23:24 exercise Not available 2023 09:23:24 Reason for Referral None Reported. Problems Name Status Onset Date Resolution Date Notes Provider Name and Address Organization Details Recorded Time Ascites Active 2013 Problem Code: R18.8; Problem Code Type: ICD-10; [address], [place], [address] , [facility] 4 12:41:02 Chronic constrictive pericarditis Active 2013 Problem Code: I31.1; Problem Code Type: ICD-10; [address], [facility] [address] , [facility] 4 12:41:03 Chronic right-sided heart failure Active 2013 Problem Code: I50.812; Problem Code Type: ICD-10; [address], [place], [address] , [facility] 4 12:41:02 Disorder of lung Active 2013 Problem Code: J98.4; Problem Code Type: ICD-10; [address], [place], [address] , [facility] 4 12:41:02 Chronic diastolic heart failure Active 2013 Problem Code: I50.32; Problem Code Type: ICD-Reyes; [address], [place], [address] , [facility] 4 12:41:03 Rheumatic tricuspid valve regurgitation Active 2014 Problem Code: I07.1; Problem Code Type: ICD-10; [address], [place], [address] , [facility] 4 12:41:03 Severe obesity Active 2016 Problem Code: E66.01; Problem Code Type: ICD-10; [address], [facility] [address] , [facility] 4 12:41:03 Type 2 diabetes mellitus without complication Active 201607/17/2020 - Comments only - Noemi Hyde APRN - A1C is 8.1%. not coral goal. Continue medication regimen. Check blood sugars twice and keep a lot. Not on statin, check lipid profile, calculate ASCVD risk and treat as indicated. Check UA and MA, treat as indicated. Eye exam is scheduled for next month. Refer to endocrinology . Will have public health educator reach out. Problem Code: E11.9; Problem Code Type: ICD-10; [address], [facility] [address] , [facility] 4 12:41:02 Anxiety disorder Active 2016 Problem Code: F41.9; Problem Code Type: ICD-10; [address], [place], [address] , [facility] 4 12:41:02 Major depression, single episode Active 201607/17/2020 - Comments only - Noemi Hyde APRN - with anxiety. Continue medication regimen. Consider wean down from ativan when ready; discussed not recommended fdc use. Problem Code: F32.9; Problem Code Type: ICD-10; [address], [place], [address] , [facility] 4 12:41:02 Obstructive sleep apnea syndrome Active 201607/17/2020 - Comments only - Noemi Hyde APRN - Encouraged weight loss through diet and activity. Encouraged used of CPAP. Talk with sleep clinic about adjustments or possible fitting for oral appliance. Problem Code: G47.33; Problem Code Type: ICD-10; [address], [place], [address] , [facility] 4 12:41:03 Essential hypertension Active 202007/17/2020 - Comments only - Noemi Hyde APRN - Stable. continue medication regimen. Check UA and MA. Problem Code: I10; Problem Code Type: ICD-10; [address], [facility] [address] , [facility] 4 12:41:03 Diaphragmatic hernia Active 2020 Problem Code: K44.9; Problem Code Type: ICD-10; [address], [place], [address] [place] [address] , [facility] 4 12:41:02 Benign neoplasm of colon Active 201807/17/2020 - Comments only - Noemi Hyde APRN - and family history of colon CA. [place] every [address] Wylie, last done 2019. Problem Code: D12.6; Problem Code Type: ICD-10; [address], [place], [address] , [facility] 4 12:41:03 Restless legs Active 202007/17/2020 - Comments only - Noemi Hyde APRN - more bothersome. Differentials include anemia, thryoid, electrolyte imbalance. Takes mag QHS through plexus system. Encouraged bar of dial soap in sheets, tonic water or pickle juice as desires. Check TSH with R, mag, iron stores, CBCD, CMP. Problem Code: G25.81; Problem Code Type: ICD-10; [address], [place], [address] , [facility] 4 12:41:02 Fatigue Active 2020 Problem Code: R53.83; Problem Code Type: ICD-10; [address], [place], [address] , [facility] 4 12:41:03 Hypothyroidis m Active 202007/17/2020 - Comments only - Noemi Hyde [employer] - Check TSH with R. Adjust medication as indicated. Problem Code: E03.9; Problem Code Type: ICD-10; [address], [place], [address] , [facility] 4 12:41:02 Cirrhosis of liver Active 202007/15/2020 - Comments only - Noemi Hyde APRN - Dr Emmanuel for and every 6 months. last seen 06/11 Problem Code: K74.60; Problem Code Type: ICD-10; [address], [place], [address] , [facility] 4 12:41:02 Family history of malignant neoplasm of digestive organ Active 2020 Problem Code: Z80.0; Problem Code Type: ICD-10; [address], [place], [address] , [facility] 4 12:41:02 Lymphedema Active 202007/17/2020 - Comments only - Noemi Hyde [employer] - s/p cardiac interventions . Has done PT in the past without relief. Sees a massage therapist monthly for this. Has a sleeve, encouraged to use this. Problem Code: I89.0; Problem Code Type: ICD-Reyes; [address], [place], [address] , [facility] 4 12:41:02 Supraventricu lar tachycardia Active 2020 Problem Code: I47.1; Problem Code Type: ICD-10; [address], [place], [address] , [facility] 4 12:41:03 Headache Active 202007/17/2020 - Comments only - Noemi Hyde APRN - Encouraged rare use of APAP PRN. Avoid IBU. Stay well hydrated. Problem Code: R51.9; Problem Code Type: ICD-10; [address], [place], [address] , [facility] 4 12:41:02 Tobacco dependence caused by cigarettes Active 202007/17/2020 - Comments only - Noemi Hyde APRN - Encouraged smokin cessation. PPSV23 is current. Total pack history is 5 years. Desires nitrotrol; she will reachout to 802 quits and if not able to get through them, will provide Rx. Problem Code: F17.210; Problem Code Type: ICD-10; [address], [place], [address] , [facility] 4 12:41:02 High enzyme level in serum Active 202007/17/2020 - Comments only - Noemi Hyde APRN - Check CMP today as well as a GGT. continue FU with Dr Wylie. If GGT is normal, evaluate further with vitamin D level, DEXA and referral to endo as indicated. Problem Code: R74.8; Problem Code Type: ICD-10; [address], [place], [address] , [facility] 4 12:41:03 Nonulcer dyspepsia Active 2020 Problem Code: K30; Problem Code Type: ICD-10; [address], [place], [address] , [facility] 4 12:41:02 Secondary polycythemia Active 2020 Problem Code: D75.1; Problem Code Type: ICD-10; [address], [place], [address] , [facility] 4 12:41:03 Cough Active 202009/05/2020 - Comments only - Noemi Hyde APRN - Differentials include virus, bacterial infection unlikely but still possible, allergens. Do not think vaccine reaction since symptoms are worsening. Take claritin once a day. Flonase BID. APAP PRN. Test for COVID19 and send to lab. Hold on doing a CXR. If not improving or worsening over the next 3 days, treat doxycycline 100mg PO BID for 10 days. Encouraged good hand hygiene, rest, vitamin C, good hydration. Continue proair inhaler. Consider doing flovent if cough not improving and URI symptoms have resolved. Problem Code: R05; Problem Code Type: ICD-10; [address], [place], [address] , [facility] 4 12:41:03 Kidney stone Active 2021 Problem Code: N20.0; Problem Code Type: ICD-10; [address], [place], [address] , [facility] 4 12:41:03 Chronic kidney disease Active 2021 Problem Code: N18.9; Problem Code Type: ICD-10; [address], [place], [address] , [facility] 4 12:41:03 Adult health examination Active 2021 Problem Code: Z00.00; Problem Code Type: ICD-10; [address], [place], [address] , [facility] 4 12:41:02 Allergic rhinitis Active 2021 Problem Code: J30.9; Problem Code Type: ICD-10; [address], [place], [address] , [facility] 4 12:41:03 Noninfectious gastroenterit is Active [address], [place], [address] , [facility] 4 12:41:02 Hyperlipidemi a Active 2012 Problem Code: E78.5; Problem Code Type: ICD-10; [address], [place], [address] , [facility] 4 12:41:03 Liver function tests outside reference range Active 2012 Problem Code: R94.5; Problem Code Type: ICD-10; [address], [place], [address] , [facility] 4 12:41:02 Dyspnea Completed 201311/17/2022 Problem Code: R06.02; Problem Code Type: ICD-10; Not Available [facility] 3 04:05:19 Exposure to communicable disease Completed 202001/20/2021 Problem Code: Z20.9; Problem Code Type: ICD-10; Not Available [facility] 3 04:05:20 Anemia Completed 202010/17/2020 Problem Code: D64.9; Problem Code Type: ICD-10; Not Available [facility] 3 04:05:20 Neck pain Completed 202109/02/2022 Problem Code: M54.2; Problem Code Type: ICD-10; Not Available [facility] 3 04:05:20 Right upper quadrant pain Completed 201210/17/2020 Problem Code: R10.11; Problem Code Type: ICD-10; Not Available [facility] 3 04:05:20 Paresthesia Completed 202109/02/2022 Problem Code: R20.2; Problem Code Type: ICD-10; Not Available [facility] 3 04:05:21 History of injury Completed 202109/02/2022 Problem Code: Z87.828; Problem Code Type: ICD-10; Not Available [facility] 3 04:05:21 Pneumonia Completed 201310/17/2020 Problem Code: J18.9; Problem Code Type: ICD-10; Not Available [facility] 3 04:05:22 Cirrhosis of liver Completed 202004/14/2021 Problem Code: K74.60; Problem Code Type: ICD-10; [address], [place], [address] , [facility] 4 12:41:02 Chest pain Completed 201310/17/2020 Problem Code: R07.9; Problem Code Type: ICD-10; Not Available [facility] 3 04:05:23 Adhesive capsulitis of left shoulder Completed 202009/02/2022 Problem Code: M75.02; Problem Code Type: ICD-10; Not Available [facility] 3 04:05:23 Genuine stress incontinence Completed 202109/02/2022 Problem Code: N39.3; Problem Code Type: ICD-10; Not Available [facility] 3 04:05:24 Cellulitis Completed 202110/09/2021 Problem Code: L03.90; Problem Code Type: ICD-10; Not Available [facility] 3 04:05:24 Shoulder joint pain Completed 202109/02/2022 Problem Code: M25.519; Problem Code Type: ICD-10; Not Available [facility] 3 04:05:24 Generalized hyperhidrosis Completed 202101/11/2022 Problem Code: R61; Problem Code Type: ICD-10; Not Available [facility] 3 04:05:25 Itching of skin Completed 202009/02/2022 Problem Code: L29.8; Problem Code Type: ICD-10; Not Available [facility] 3 04:05:26 Malnutrition screening Completed 202209/02/2022 Problem Code: Z13.21; Problem Code Type: ICD-10; Not Available [facility] 3 04:05:27 Increased frequency of urination Completed 202010/17/2020 Problem Code: R35.0; Problem Code Type: ICD-10; Not Available [facility] 3 04:05:28 Herpes labialis Active 2023 NOEMI HYDE, JANAN [address], [place], [address] , [facility] 4 12:44:48 Notes:*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 Medical Equipment None Reported. Allergies Allergen ID Allergen Name Allergen Category Reaction Reaction Severity Criticality Documentation Date Start Date Code Code System Note Provider Name and Address Organization Details Recorded Time latex environme nt,medica tion rash moderate Not available 12/31/20222020 01806 91 RxNorm Rash Aller gyNam e: 'LATE X'; Not Available [facility] 3 16:14:31 20463 Medicinal product containin g penicilli n and acting as antibacte rial agent (product) medicatio n rash moderate Not available 12/31/20222020 30558 05 SNOMED rash Aller gyNam e: 'PENC ILLIN '; Not Available [facility] 3 16:14:31 80547 Symbicort medicatio n tachycard ia mild Not available 12/31/20222020 55817 8 RxNorm heart racin g Aller gyRea ction : 'hear t racin g'; Not Available [facility] 3 16:14:31 21026 amoxicill in trihydrat e medicatio n rash moderate Not available 12/31/20222020 36030 8 RxNorm rash Not Available [facility] 3 16:14:31 15219 metronida zole medicatio n dizziness moderate Not available 12/31/20222022 6922 RxNorm dizzi ness Aller gyCod e: '3116 83'; Aller gyNam e: 'METR ONIDA ZOLE' ; Aller gyCon ceptT ype: 'RX Norm' ; Not Available [facility] 3 16:14:32 23058 metformin medicatio n Not available Not available [facility] 03/08/2023 6809 RxNorm BOLA WARD RN [facility] [place] [place] - [facility] 4 08:02:44 Medications Name Sig Start Date Stop Date Status Note LastModified by Organization Details LastModified Time Novolin 70/30 U-100 Insulin 100 unit/mL subcutane ous suspensio n inject SC 2 times daily. 25 units in morning, 20 units afternoo n/evenin g. 2020 active Not Available Not Available Not Avai lable Vagisil 5 %-2 % topical cream 10/17 completed Not Available Not Available Not Available atorvasta tin 20 mg tablet TAKE ONE TABLET BY MOUTH EVERY DAY DIRECTED active Not Available Not Available No t Available trazodone 50 mg tablet TAKE ONE-HALF TABLET BY MOUTH EVERY EVENING active Not Available Not Available No t Available ofloxacin 0.3 % eye drops INSTILL ONE DROP IN THE LEFT EYE THREE TIMES A DAY 03/08 completed Not Available Not Available Not Available fluconazo le 150 mg tablet Take 1 tab by mouth once. Repeat in three days as needed 2020 active Not Available Not Available Not Avai lable metoprolo l succinate ER 50 mg tablet,ex tended release 24 hr TAKE 1/2 TABLET BY MOUTH EVERY DAY CARDIOLO GY WEANING OFF active Not Available Not Available No t Available valacyclo vir 1 gram tablet Take 2 tablet by mouth twice a day as needed on the onset of a cold sore for one day as needed 2021 active Not Available Not Available Not Avai lable Claritin 10 mg tablet Take 1 tablet by mouth PRN 09/02 completed seasonal Not Available Not Available Not Available milk thistle 175 mg tablet Take 1 tablet by mouth once a day as needed for stomach bloating 03/08 completed Not Available Not Available Not Available Zithromax Z-Wally 250 mg tablet 1 tablet by mouth twice a day as directed than once a day the followin g four (4) days 09/16 completed Not Available Not Available Not Available metronida zole 500 mg tablet TAKE 1 TABLET BY MOUTH EVERY 8 HOURS 03/08 completed Not Available Not Available Not Available ciproflox acin 500 mg tablet TAKE ONE TABLET BY MOUTH TWICE A DAY 03/08 completed Not Available Not Available Not Available omeprazol e 40 mg capsule,d elayed release Take 1 tab by mouth daily. 2020 active Not Available Not Available Not Avai lable Nicotrol 10 mg inhalatio n cartridge Inhale 2 puff as directed every hour as needed 04/14 completed Not Available Not Available Not Available hydromorp marisel 2 mg tablet take 2 mg by mouth every 3 hours as needed for pain. 2020 active Not Available Not Available Not Avai lable lorazepam 0.5 mg tablet TAKE ONE TABLET BY MOUTH EVERY DAY NEEDED FOR SEVERE ANXIETY active Not Available Not Available No t Available gabapenti n 800 mg tablet Take 1 tablet by mouth three times a day 07/17 completed Not Available Not Available Not Available trazodone 100 mg tablet take 1 tablet by mouth nightly 2020 active Not Available Not Available Not Avai lable OneTouch Ultra Test strips Use 1 strip via meter three times a day 2021 active Not Available Not Available Not Avai lable benzonata te 100 mg capsule Take 1 capsule by mouth three times a day as needed 01/11 completed Not Available Not Available Not Available cephalexi n 500 mg capsule Take 1 capsule by mouth twice a day 07/17 completed Not Available Not Available Not Available Salonpas- Hot 0.025 % topical patch 12/06 completed Not Available Not Available Not Available metformin 1,000 mg tablet 1 tablet by mouth once a day 07/17 completed Not Available Not Available Not Available glimepiri de 4 mg tablet TAKE ONE TABLET BY MOUTH TWICE A DAY 2023 active Not Available Not Available Not Avai lable magnesium 500 mg (as magnesium oxide) tablet Take 1 tablet by mouth once a day as needed For leg cramps 03/08 completed Not Available Not Available Not Available omeprazol e 20 mg capsule,d elayed release TAKE ONE CAPSULE BY MOUTH EVERY DAY 2023 active Not Available Not Available Not Avai lable Tylenol 325 mg tablet active Not Available Not Available Not Available monteluka st 10 mg tablet Take 1 tablet by mouth once a day as needed 05/26 completed uses mostly in summer. Not Available Not Available Not Available polyethyl elvis glycol 3350 (bulk) powder 1 capful of powder mixed in 8 oz of liquid then taken by mouth daily for constipa tion prn 2020 active Not Available Not Available Not Avai lable furosemid e 20 mg tablet Take 1 tab by mouth once daily 2020 active Not Available Not Available Not Avai lable metoprolo l succinate ER 25 mg tablet,ex tended release 24 hr Take 1 tab by mouth daily 2020 active Not Available Not Available Not Avai lable levofloxa freddie 500 mg tablet Take 1 tablet by mouth once a day 04/14 completed Not Available Not Available Not Available albuterol sulfate HFA 90 mcg/actua tion aerosol inhaler INHALE TWO PUFFS BY MOUTH FOUR TIMES A DAY NEEDED active Not Available Not Available No t Available fluticaso ne propionat e 50 mcg/actua tion nasal spray,evelyn pension INSTILL 1 SPRAY INTO BOTH NOSTRILS TWICE A DAY 01/11 completed Not Available Not Available Not Available doxycycli ne hyclate 100 mg tablet Take 1 tablet by mouth twice a day For 1`0 days 09/09 completed Not Available Not Available Not Available Tums 200 mg (as calcium carbonate 500 mg) chewable tablet 12/06 completed Not Available Not Available Not Available spironola ctone 50 mg tablet TAKE ONE TABLET BY MOUTH EVERY DAY active Not Available Not Available No t Available Vitamin B-12 1,000 mcg tablet TAKE TWO TABLETS BY MOUTH EVERY DAY DIRECTED active Not Available Not Available No t Available Vicks Sinex 12-Hour 0.05 % nasal spray [place] 1 spray into both nostrils twice a day active Uses instead of fluticas one ( works better) Not Available Not Available Not Available Estrace 0.01% (0.1 mg/gram) vaginal cream apply 2 vaginall y daily 2020 active Not Available Not Available Not Avai lable escitalop ketan 10 mg tablet Take 1 tablet by mouth once a day TAKE ONE TABLET BY MOUTH EVERY DAY 09/02 completed Not Available Not Available Not Available escitalop ketan 20 mg tablet TAKE ONE TABLET BY MOUTH EVERY DAY 2023 active Not Available Not Available Not Avai lable Vitamin D3 25 mcg (1,000 unit) tablet 1 daily active Not Available Not Available Not Available Prilosec OTC 20 mg tablet,de layed release Take 1 tablet by mouth once a day 01/11 completed Not Available Not Available Not Available escitalop ketan 5 mg tablet TAKE ONE TABLET BY MOUTH EVERY DAY 05/03 completed Not Available Not Available Not Available Alcohol Wipes 12/06 completed Not Available Not Available Not Available Advair HFA 45 mcg-21 mcg/actua tion aerosol inhaler Inhale 2 puff as directed twice a day 10/17 completed Not Available Not Available Not Available Icy Hot 30 %-10 % topical cream 12/06 completed Not Available Not Available Not Available NAC 600 mg capsule Take 1 capsule every day by oral route. active Not Available Not Available No t Available melatonin 5 mg tablet TAKE ONE TO TWO TABLETS BY MOUTH AT BEDTIME active Not Available Not Available No t Available cholecalc iferol (vitamin D3) 50 mcg (2,000 unit) tablet TAKE FOUR TABLETS BY MOUTH EVERY DAY active Not Available Not Available No t Available GaviLyte- G 236 gram-22.7 4 gram-6.74 gram-5.86 gram oral solution DRINK 240ML BY MOUTH EVERY 10 MINUTES FOR 1 DAY 03/08 completed Not Available Not Available Not Available Personal Lubricati ng Jelly topical active Not Available Not Available Not Available Margo-Selt zer Original 325 mg-1,916 mg-1,000 mg effervesc ent tablet 09/16 completed Not Available Not Available Not Available Margo-Selt zer Plus C/C(PE,DM ) 2 mg-7.8 mg-10 mg-325 mg efferves. tablet 09/16 completed Not Available Not Available Not Available Farxiga 10 mg tablet TAKE ONE TABLET BY MOUTH EVERY DAY active Not Available Not Available No t Available Farxiga 5 mg tablet Take 1 tablet by mouth once a day 09/02 completed Not Available Not Available Not Available Children' s Saline Nasal [place] 0.65 % aerosol 12/06 completed Not Available Not Available Not Available Metamucil 3.4 gram/5.4 gram oral powder 10/17 completed Not Available Not Available Not Available Ozempic 0.25 mg or 0.5 mg (2 mg/1.5 mL) subcutane ous pen injector Inject 1 mg subcutan eously once a week for four weeks and then will change after 01/11 completed Not Available Not Available Not Available BD Veo Insulin Syringe Ultra-Fin e (half unit) 0.3 mL 31 gauge x 15/64 inject insulin DX: E11.9 2020 active Not Available Not Available Not Avai lable BD Veo Insulin Syringe Ultra-Fin e 0.3 mL 31 gauge x 15/64 USE TO INJECT INSULIN TWICE A DAY 05/26 completed Not Available Not Available Not Available Preparati on H (Witch Giovanna) 20 % topical pads 10/17 completed Not Available Not Available Not Available Ozempic 1 mg/dose (4 mg/3 mL) subcutane ous pen injector Inject 2 mg subcutan eously once a week 03/08 completed Not Available Not Available Not Available Ozempic 2 mg/dose (8 mg/3 mL) subcutane ous pen injector INJECT 2MG UNDER THE SKIN ONCE A WEEK active Not Available Not Available No t Available Lagevrio 200 mg capsule (EUA) 4 capsules every 12 hours for 5 days 01/11 completed Not Available Not Available Not Available Vitals Date Recorded Body height Body mass index (BMI) Body weight Body temperature Oxygen saturation Oxygen saturation in Arterial blood by Pulse oximetry Heart rate Systolic blood pressure Diastolic blood pressure Provider Name and Address Organization Details Last Updated DateTime 4 156.21 cm 33.1 kg/m2 03003.8 4 g 98.5 [degF] 96 % 96 % 102 /min 100 mm[Hg] 70 mm[Hg] BITA KIMBROUGH CMA [facility] 4 08:50:11 Social History Question Answer Notes LastModified by Organizat ion Details LastModified Time Tobacco Smoking Status Current Every Day Smoker BOLA WARD RN [facility], [facility] 03/08/2023 08:11:06 What Was The Date Of Your Most Recent Tobacco Screening? 03/08/2023 [email or web address] Information not available 03/08/2023 How Much Tobacco Do You Smoke? 0.25 PPD [email or web address] Information not available 03/08/2023 Has Tobacco Cessation Counseling Been Provided? Yes [email or web address] Information not available 03/08/2023 On What Date Was Tobacco Cessation Counseling Provided? 06/21/2023 Information not available 06/21/2023 Do You Or Have You Ever Used Any Other Forms Of Tobacco Or Nicotine? No [email or web address] Information not available 03/08/2023 Sex: Female Functional Status None recorded. Mental Status None recorded. Family History Relationship Description Onset Age of this Age Resolved Age Notes Notes:*Problem: mother- Dece ased- CAD, DM, CVA age 64 Father- - Heart Disease, myocardial infarction and Asthma Siblings-1 sister and 4 brothers- Sister and 2 brothers have RA, DM, essential HTN, Heart disease. A brother had a CABG, CAD. Children- 1 son- alive and well Maternal Grandmother - Diabetes, Essential HTN, Heart Disease and Cancer. Maternal GF: diabetes and colon cancer ? age 20 . Paternal GF : 36 appendix, cancer and diabetes. Paternal GM: Stroke Cancer, Diabetes. Breast CA: no Colon CA: yes, MGF Uterine/ ovarian CA: no Medical History No medical history recorded. Gynecological HistoryNo gynecological history recorded. Obstetrics History GPAL:G 0 P 0 0 0 0 Immunizations Vaccine Type Date Status Provider Name and Address Organization Details Recorded Time Hep A-Hep B 07/03/2013 completed Not Available [facility] 12/31/2022 04:28:23 Hep A-Hep B 08/20/2013 completed Not Available [facility] 12/31/2022 04:28:23 Hep A-Hep B 01/08/2014 completed Not Available [facility] 12/31/2022 04:28:23 Tdap 07/23/2010 completed Not Available [facility] 04:28:25 Tdap 10/17/2020 completed Not Available [facility] 04:28:25 Pneumococcal conjugate PCV 13 07/22/2016 completed Not Available [facility] 12/31/2022 04:28:25 Pneumococcal conjugate PCV 13 01/04/2017 completed Not Available [facility] 12/31/2022 04:28:26 Td(adult) unspecified formulation 02/01/2005 completed Not Available [facility] 12/31/2022 04:28:26 Influenza, split virus, quadrivalent, PF 12/10/2020 completed Not Available [facility] 12/31/2022 04:28:27 Influenza, split virus, quadrivalent, PF 01/22/2022 completed Not Available [facility] 12/31/2022 04:28:27 zoster recombinant 04/20/2019 completed Not Available [facility] 12/31/2022 04:28:28 COVID-19, mRNA, LNP-S, PF, 100 mcg/0.5mL dose or 50 mcg/0.25mL dose 06/22/2020 completed Not Available [facility] 12/31/2022 04:28:28 COVID-19, mRNA, LNP-S, PF, 100 mcg/0.5mL dose or 50 mcg/0.25mL dose 07/20/2020 completed Not Available [facility] 12/31/2022 04:28:29 COVID-19, mRNA, LNP-S, PF, 30 mcg/0.3 mL dose, macy-sucrose 03/27/2021 completed Not Available [facility] 12/31/2022 04:28:29 COVID-19, mRNA, LNP-S, PF, 30 mcg/0.3 mL dose, macy-sucrose 10/09/2021 completed Not Available [facility] 12/31/2022 04:28:30 pneumococcal polysaccharide PPV23 11/13/2014 completed Not Available [facility] 2022 04:28:30 pneumococcal polysaccharide PPV23 02/08/2008 completed Not Available [facility] 2022 04:28:30 influenza, unspecified formulation 11/13/2014 completed Not Available [facility] 12/31/2022 04:28:31 influenza, unspecified formulation 11/26/2013 completed Not Available [facility] 12/31/2022 04:28:31 influenza, unspecified formulation 11/27/2019 completed Not Available [facility] 12/31/2022 04:28:31 influenza, unspecified formulation 11/29/2017 completed Not Available [facility] 12/31/2022 04:28:31 influenza, unspecified formulation 11/30/2016 completed Not Available [facility] 12/31/2022 04:28:31 influenza, unspecified formulation 12/08/2015 completed Not Available [facility] 12/31/2022 04:28:32 influenza, unspecified formulation 12/13/2018 completed Not Available [facility] 12/31/2022 04:28:32 Influenza, split virus, quadrivalent, PF 12/06/2022 completed Not Available [facility] 03/04/2023 05:31:40 Past Encounters Encounter ID Performer Location Encounter Start Date Encounter Closed Date Diagnosis/Indication Diagnosis SNOMED-CT Code [id number] NOEMI HYDE APRN [address] [address] 06/21/2023 08:39:04 06/21/2023 09:33:53 Hypothyroidism 49877938 Obstructiv e sleep apnea syndrome 80779110 Cirrhosis of liver 007 Disorder of lung 0207379 1 Benign da plasm of colon 94223828 Essential hypertension 61188705 Major depr ession, single episode 53594291 Type 2 wse betes mellitus without complication 069751325 Chronic ri ght-sided heart failure 04757186 Headache 04669593 Herpes labialis 7042350 Health Concerns Section Related Observation LastModified by Organization Detai ls LastModified Time None Recorded Concern Status LastModified by Organization Details LastModified Time None Recorded Payers Encounter Date Sequence Insurance Name Policy Number Policy Holt Covered Member ID Holt Member ID Guarantor Name 06/21/2023 Lela [facility] (MEDICAID) Teresita Fernández [id number] Teresita Fernández Notes Date Note Type Note Provider Name and Address Organization Details Recorded Time 06/21/2023 text/html HPI Notes: Is he re for follow-up: -Hypothyroidism. Without medication. -BHARATI. Fatigue. RLS. Nocturnal leg cramps. Has CPAP. Takes magnesium supplement, trazodone, melatonin. -- Not using CPAP, puppy chewed through mask/ tubing. -Cirrhosis. Elevated LFTs. Elevated alk phos, GGT. Dyspepsia. Hiatal hernia. Watermelon stomach. Takes Prilosec 20mg. Sees gastro routinely. -Restrictive lung disease. Cough. Sinus congestion. Tobacco abuse. Takes singulair, Claritin, flonase. Ventolin inhaler PRN. -Tubular adenoma. CRC. Next colo due 2023. -HTN. Takes aldactone (50mg), metoprolol succ ER (50mg, doing 1/2 tab daily), atorvastatin (20mg) -Depression. Anxiety. Insomnia. Takes melatonin QHS, NAC, L methyl folate, magnesium, Lexapro (at 20mg), trazodone (50mg). Ativan (0.5mg), no more than 10/ month. -DM. Obesity. Takes ozempic 2mg weekly, glimepiride 4mg BID, farxiga 10mg daily, atorvastatin 20mg daily, ASA. Not on ACEI/ARB. Does plexus for weight management. -- Update 06.21.23- 120-170. highest 180. lowest 120. Denies 3Ps. Denies burning, numbness, tingling or pain to feet. Eating more veggies, grilling, more chicken, more salads. Trying to be more active, walking around her house outside and motor power connector. -Heart failure. Constrict pericarditis. Lymphedema. Takes Lasix, aldactone, metoprolol, atorvastatin. Sees cardiology routinely, plan was to stop lasix and to reduce metoprolol. Massage fro lymphedema, goes monthly. -- 06.21.23- feels lymphedema is better with massage. Left arm soreness/ ache and swelling depending on the weather. Does not use lymphedema sleeve, did not provide relief. Minimal swelling, more of a discomfort and swelling. -Headaches. See ROS. -Cold sores. Oral HSV. valacylovir start w/ sx onset. none since last time seen in office. NOEMI HYDE, [employer] [address], [place], [address], [facility] 06/21/2023 10:31:14 OBGyn Episode No OBEpisode recorded.
--- OUTSIDE RECORDS SUMMARY | 2023-09-06 01:37 | XMS_ITS | Encounter Summary ---
Author Organization [facility] [place] [address] Care Team Providers Care Coin Box Collector Name Role Phone Noemi Sharma JANNA Primary Care Provider [phone] Encounter Details Date Type Department Care Team (Late Contact Info) Description 03/08/2023 Orders [place] [id number] Karen Farnsworth MD [facility] [place] [address] Hepatic cirrhosis, unspecified hepatic cirrhosis type, unspecified whether ascites present Social History Tobacco Use Types Packs/Day Years [...] 11:00 AM EDT Office [place] [address] Mague Johnson MD [facility] [place] [address] Scheduled Orders Name Type Priority Associated Diagnoses Orde r Schedule CBC (with Diff) Lab Routine Hepatic cirrhosis, unspecified hepatic cirrhosis type, unspecified whether ascites present Expected: 03/15/2023 (Approximate), Expires: 09/14/2023 Comprehensive metabolic panel (non-fasting) Lab Routine Hepatic cirrhosis, unspecified hepatic cirrhosis type, unspecified whether ascites present Expected: 03/15/2023 (Approximate), Expires: 09/14/2023 Prothrombin Time Lab Routine Hepatic cirrhosis, unspecified hepatic cirrhosis type, unspecified whether ascites present Expected: 03/15/2023, Expires: 09/14/2023 AFP tumor marker Lab Routine Hepatic cirrhosis, unspecified hepatic cirrhosis type, unspecified whether ascites present Expected: 03/15/2023 (Approximate), Expires: 09/14/2023 documented as of this encounter Visit Diagnoses Diagnosis Hepatic cirrhosis, unspecified hepatic cirrhosis type, unspecified whether ascites present documented in this encounter Care Teams Coin Box Collector Relationship Specialty Start Date End Date Noemi Sharma APRN [address] [place] [address] PCP - General Family Medicine 07/28/20 documented as of this encounter
--- OUTSIDE RECORDS SUMMARY | 2023-09-06 01:37 | XMS_ITS | Encounter Summary ---
Author Organization [facility] [place] [address] Care Team Providers Care Air Conditioning Insulation Installer Name Role Phone Noemi Sharma JANNA Primary Care Provider [phone] Encounter Details Date Type Department Care Team (Late st Contact Info) Description 06/13/2023 1:20 PM EDT Office Visit Cardiology at [address] [address] Homer Dobbs MD [facility] [place] [address] h/o Constrictive pericarditis Social History Tobacco Use Types Packs/Day Years [...] PM EDT documented as of this encounter Last Filed Vital Signs Vital Sign Reading Time Taken Comments Blood Pressure 110/80 06/13/2023 1:13 PM EDT Pulse 93 06/13/2023 1:13 PM EDT Temperature - - Respiratory Rate - - Oxygen Saturation 99% 06/13/2023 1:13 PM EDT Inhaled Oxygen Concentration - - Weight 79.7 kg (175 lb 12.8 oz) 06/13/2023 1:13 PM EDT Height 157.5 cm (5' 2) 06/13/2023 1:13 PM EDT Body Mass Index 32.15 06/13/2023 1:13 PM EDT documented in this encounter Progress Notes * Homer Dobbs MD - 06/13/2023 1:20 PM EDT HPI: Teresita Fernández is a 58 y.o. year old with a pmhx of pericardial stripping and shortness of breath. She has anxiety, morbid obesity, dm, and htn. Last echo 10/15/2020 -- normal LVEF 63, normal rvf, ppasp 28mmhg. This is the first time I have spoke with her. She tested positive for covid this am. PERALTA, sore throat, stuffiness ache. Breathing is okay. She is not swelling okay. She is taking her meds. No PND. 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 She is feeling good today. Does some walking / housework for exercise. She is has dog (big). PMHX Patient Active Problem List Diagnosis Code Abdominal pain, RUQ (right upper quadrant) R10.11 Abnormal LFTs (liver function tests) R79.89 Hiatal hernia K44.9 h/o Constrictive pericarditis I31.1 Chronic right-sided heart failure I50.812 Cardiac cirrhosis K76.1 SOB (shortness of breath) R06.02 Chest pain R07.9 Fever R50.9 HCAP (healthcare-associated pneumonia) J18.9 Chronic diastolic congestive heart failure I50.32 Pain in left arm M25.512 Morbid obesity with body mass index (BMI) of 40.0 to 44.9 in adult E66.01, Z68.41 Depressive disorder F32.A Anxiety F41.9 Diabetes mellitus E11.9 Hyperlipidemia E78.5 Tricuspid valve insufficiency I07.1 BHARATI (obstructive sleep apnea) G47.33 Polycystic ovarian syndrome E28.2 Anemia D64.9 Asthma J45.909 Lymphedema of extremity I89.0 Hyperkalemia E87.5 Primary hypertension I10 Restrictive lung disease J98.4 Sinus tachycardia R00.0 MEDS: Current Outpatient Medications on File Prior to Visit Medication Sig Dispense Refill UNABLE TO FIND Med Name: plexus supplements metoprolol succinate XL (Toprol-XL) 50 mg ER 24 hr tablet Take 1 tablet by mouth daily. 90 tablet 0 spironolactone (Aldactone) 50 mg tablet TAKE ONE TABLET BY MOUTH EVERY DAY 90 tablet 1 Farxiga 5 mg tablet Take 5 mg by mouth daily. cyanocobalamin, Vitamin B-12, (Vitamin B-12) 1,000 mcg Tablet Take 1,000 mcg by mouth daily. cholecalciferol, Vitamin D3, 50 mcg (2,000 unit) Capsule Take 2,000 Units by mouth daily. lactobacillus rhamnosus, GG, (CULTURELLE) 10 billion cell Capsule Take 1 capsule by mouth daily. atorvastatin (Lipitor) 20 mg Tablet Take 1 tablet by mouth daily. 90 tablet 3 melatonin 5 mg Tablet TAKE ONE TO TWO TABLETS BY MOUTH AT BEDTIME omeprazole (PriLOSEC) 20 mg Capsule, Delayed Release(E.C.) Take 20 mg by mouth daily. Ozempic 1 mg/dose (2 mg/1.5 mL) Pen Injector Inject 1 mg subcutaneously every 7 days. (Patient taking differently: Inject 2 mg subcutaneously every 7 days.) 9 mL 3 fluticasone propionate (Flonase) 50 mcg/actuation [place], Suspension INSTILL 1 SPRAY INTO BOTH NOSTRILS TWICE A DAY glimepiride (AMARYL) 4 mg Tablet Take 1-2 tablets by mouth daily. 180 tablet 3 albuterol 90 mcg/actuation HFA Aerosol Inhaler Inhale 2 puffs into the lungs 4 times daily as needed for Wheezing (VENTOLIN). Use with spacer escitalopram (LEXAPRO) 20 mg Tablet Take 20 mg by mouth daily. No current facility-administered medications on file prior to visit. reviewed SOCX Social History Socioeconomic History Marital status: Spouse name: None Number of children: None Years of education: None Highest education level: None Occupational History None Tobacco Use Smoking status: Every Day Packs/day: 0.25 Years: 15.00 Additional pack years: 0.00 Total pack years: 3.75 Types: Cigarettes Last attempt to quit: 02/20/1996 Years since quittin.3 Smokeless tobacco: Never Vaping Use Vaping Use: Never used Substance and Sexual Activity Alcohol use: No Drug use: No Sexual activity: Yes Partners: Male Other Topics Concern None Social History Narrative None Social Determinants of Health Financial Resource Strain: Not on file Food Insecurity: Not on file Transportation Needs: Not on file Physical Activity: Not on file Intimate Partner Violence: Not on file Housing Stability: Not on file FAMHX Family History Problem Relation Age of Onset Type 1 Diabetes Other Autoimmune Disorder Other Heart Disease Mother Cerebrovascular Accident Mother 64 Diabetes Mother Diabetes Sister Arthritis Sister Arthritis Brother Diabetes Brother Arthritis Brother Diabetes Brother Diabetes Brother ROS Negative for blood in stool or urine. No fevers or chills. No recent syncope. Otherwise all other systems were reviewed and found to be negative. Physical Examination Patient Vitals for the past 24 hrs: Pulse BP SpO2 06/13/23 1313 93 110/80 99 % General: no acute distress Behavioral: Alert and oriented to person place and time Heent: Cranial nerves 2-12 grossly intact, JVP not elevated, no carotid bruits CV: RRR normal s1 and s2 without murmurs present Lungs: CTA bilaterally Abd: soft, nt, bs positive, no pulsatile masses Extrem: no lower extremity edema Pulses: radial Pulses = bilaterally Skin: warm, dry without rashes Neuro: muscle strength grossly = bilaterally LABS: Labs reviewed by myself No results found for this or any previous visit (from the past 24 hour(s)). Assessement and Plan: 58 year old obese female with htn, hlp, dm, s/p pericardial stripping. 1. hlp -- continue statin 2. Continue lasix and spironolactone for sob, check bmp 3. Hx of pericardial stripping 4. F/u 1 years 5. Discussed meds -- will have patient stop metoprolol and see how she feels. If she does not thinkshe needs it, she will give my nurse cynthia a call so we can discontinue. documented in this encounter Plan of Treatment Upcoming Encounters Date Type Department Care Team (Late st Contact Info) Description 09/14/2023 11:00 AM EDT Office [place] [phone] Mague Johnson MD [facility] [place] [address] documented as of this encounter Visit Diagnoses Diagnosis h/o Constrictive pericarditis Constrictive pericarditis documented in this encounter Care Teams Air Conditioning Insulation Installer Relationship Specialty Start Date End Date Noemi Sharma APRN [address] [place] [address] PCP - General Family Medicine 07/28/20 documented as of this encounter
--- OUTSIDE RECORDS SUMMARY | 2023-09-06 01:37 | XMS_ITS | Encounter Summary ---
Author Organization [facility] Address [facility] [place] [address] Care Team Providers Care Client Development Manager Name Role Phone Noemi Sharma APRN Primary Care Provider [phone] Encounter Details Date Type Department Care Team (Latest Contact Info) Description 06/06/2023 Travel Social History Tobacco Use Types Packs/Day Years [...] 11:00 AM EDT Office Visit [place] [address] Mague Johnson MD [facility] [place] [address] documented as of this encounter Visit Diagnoses Not on filedocumented in this encounter Care Teams Client Development Manager Relationship Specialty Start Date End Date Noemi Sharma APRN [address] [place] [address] PCP - General Family Medicine 07/28/20 documented as of this encounter
--- OUTSIDE RECORDS SUMMARY | 2023-09-06 01:37 | XMS_ITS | Encounter Summary ---
Author Organization [facility] [place] [address] Care Team Providers Care Stopper Setter Name Role Phone Zachary Noeminicole Esteban APRN Primary Care Provider [phone] Encounter Details Date Type Department Care Team (Late st Contact Info) Description 12/10/2022 Telephone Sleep Center at [facility] [address] [place] [address] Elana Guzman Social History Tobacco Use Types Packs/Day Years [...] * Telephone Encounter - Elana Guzman - 12/10/2022 10:51 AM EDT Lvm/letter to schedule Appointment canceled for Teresita Fernández ([id number]) Visit Type: FOLLOW UP VISIT Date Time Length Provider Department 12/31/2022 2:00 PM 30 mins. HOLLY ACUNA [facility] SLEEP MEDICINE Reason for Cancellation: P-INCONVENIENT DATE OR TIME Patient Comments: Could my December 31 appointment please be cancelled and reschedule in the spring time so I've had enough time to use my cpap please. I will be out of the area on [place] youTina documented in this encounter Plan of Treatment Upcoming Encounters Date Type Department Care Team (Late st Contact Info) Description 09/14/2023 11:00 AM EDT Office [place] [address] Mague Johnson MD [facility] [place] [address] documented as of this encounter Visit Diagnoses Not on filedocumented in this encounter Care Teams Stopper Setter Relationship Specialty Start Date End Date Noemi Sharma APRN [address] [place] [address] PCP - General Family Medicine 07/28/20 documented as of this encounter
--- OUTSIDE RECORDS SUMMARY | 2023-09-06 01:37 | XMS_ITS | Encounter Summary ---
Author Organization [facility] Address [facility] [place] [address] Care Team Providers Care Audiovisual Lead Technician Name Role Phone Noemi Sharma APRN Primary Care Provider [phone] [phone] Reason for Visit * Reason Onset Date Comments Other 07/12/2023 Encounter Details Date Type Department Care Team (Late st Contact Info) Description 07/12/2023 Telephone Sleep Center at [facility] [address] [place] [address] Sloane Castillo APRN [facility] [place] [address] Other Social History Tobacco Use Types Packs/Day Years [...] encounter Miscellaneous Notes * Telephone Encounter - Viky Sanchez - 07/12/2023 3:26 PM EDT Message: Joce states they received an order for mask fitting and wants to let the provider know that patient is non compliance and insurance will not cover the order. Patient has to go through [employer] for this. Ask caller their first and last name and relationship to the patient: Joce Foster Best time to call back: anytime Ok to leave a message: y Ok to send - message: n Offered Appointment: n MA/Nurse/Diagnostic Tech contacted via:n Message: y Call: n Pager: n documented in this encounter Plan of Treatment Upcoming Encounters Date Type Department Care Team (Late st Contact Info) Description 09/14/2023 11:00 AM EDT Office Visit [place] [address] Mague Johnson MD [facility] DR ENDOCRINOLOGY [place] [address] documented as of this encounter Visit Diagnoses Not on filedocumented in this encounter Care Teams Audiovisual Lead Technician Relationship Specialty Start Date End Date Noemi Sharma, STANDARDS ANALYST [address] [place] [address] PCP - General Family Medicine 07/28/20 documented as of this encounter
--- OUTSIDE RECORDS SUMMARY | 2023-09-06 01:37 | XMS_ITS | Encounter Summary ---
Author Organization [facility] Address [facility] [place] [address] Care Team Providers Care Manager University Name Role Phone Noemi Sharma APRN Primary Care Provider [phone] [phone] Encounter Details Date Type Department Care Team (Latest Contact Info) Description 06/13/2023 Travel Social History Tobacco Use Types Packs/Day [...] 11:00 AM EDT Office [place] [address] Mague Johnson MD [facility] [place] [address] documented as of this encounter Visit Diagnoses Not on filedocumented in this encounter Care Teams Manager University Relationship Specialty Start Date End Date Noemi Sharma APRN [address] [place] [address] PCP - General Family Medicine 07/28/20 documented as of this encounter
--- OUTSIDE RECORDS SUMMARY | 2023-09-06 01:37 | XMS_ITS | Encounter Summary ---
Author Organization [facility] [place] [address] Care Team Providers Care Whipped Topping Mixer Name Role Phone Noemi Sharma JANNA Primary Care Provider [phone] Encounter Details Date Type Department Care Team (Late st Contact Info) Description 07/07/2023 Abstract Cardiology at [address] [phone] Ledy Yañez, RN Social History Tobacco Use Types Packs/Day Years [...] 11:00 AM EDT Office [place] [phone] Mague Johnson MD [facility] [place] [address] documented as of this encounter Visit Diagnoses Not on filedocumented in this encounter Care Teams Whipped Topping Mixer Relationship Specialty Start Date End Date Noemi Sharma APRN [address] [place] [address] PCP - General Family Medicine 07/28/20 documented as of this encounter
--- OUTSIDE RECORDS SUMMARY | 2023-09-06 01:37 | XMS_ITS | Encounter Summary ---
Author Organization [facility] Address [facility] [place] [address] Care Team Providers Care Caretaker Name Role Phone Noemi Sharma APRN Primary Care Provider [phone] Encounter Details Date Type Department Care Team (Latest Contact Info) Description 05/25/2022 Travel Social History Tobacco Use Types Packs/Day [...] 11:00 AM EDT Office [place] [address] Mague Johnson MD [facility] [place] [address] documented as of this encounter Visit Diagnoses Not on filedocumented in this encounter Care Teams Caretaker Relationship Specialty Start Date End Date Noemi Sharma APRN [address] [place] [address] PCP - General Family Medicine 07/28/20 documented as of this encounter
--- OUTSIDE RECORDS SUMMARY | 2023-09-06 01:37 | XMS_ITS | Encounter Summary ---
[place] [address] Care Team Providers Care On Awake Counselor Name Role Phone Noemi Sharma APRN Primary Care Provider [phone] Encounter Details Date Type Department Care Team (Late st Contact Info) Description 03/14/2023 2:55 PM EST Ancillary Procedure [place] [phone] Noemi Sharma APRN [address] [place], [place] [address] Social History Tobacco Use Types Packs/Day Years [...] 11:00 AM EDT Office [place] [phone] Mague Johnson MD [facility] [address] [place] [address] documented as of this encounter Procedures Procedure Name Priority Date/Time Associated Diagnosis Comments FILM LIBRARY STORAGE ONLY ULTRASOUND STUDY Routine 03/14/2023 2:51 PM EST documented in this encounter Results * Film Library- Storage Only Ultrasound Study (03/14/2023 2:51 PM EST) Narrative [facility] - 03/14/2023 2:51 PM EST This exam is auto-finalizing. It's purpose is for storage only. Noemi Sharma APRN [employer] FILM LIBRARY ORDERABLES Performing Organization Address City/State/[facility] Co de Phone Number [place], [place] documented in this encounter Visit Diagnoses Not on filedocumented in this encounter Care Teams On Awake Counselor Relationship Specialty Start Date End Date Noemi Sharma APRN [address] [place] [address] PCP - General Family Medicine 07/28/20 documented as of this encounter
--- OUTSIDE RECORDS SUMMARY | 2023-09-06 01:37 | XMS_ITS | Encounter Summary ---
Author Organization [facility] [place] [address] Care Team Providers Care [place] Name Role Phone Noemi Sharma JANNA Primary Care Provider [phone] Reason for Visit * Reason Onset Date Comments Medication Refill 08/04/2022 Encounter Details Date Type Department Care Team (Late st Contact Info) Description 08/04/2022 Refill Cardiology at [address] [phone] Homer Dobbs MD [facility] [place] [address] Medication Refill Social History Tobacco Use Types [...] 11:00 AM EDT Office [place] [address] Mague Johnson MD [facility] DR [place] [address] documented as of this encounter Visit Diagnoses Diagnosis Chronic right-sided heart failure- Primary Congestive heart failure, unspecified Fluid retention Other fluid overload Cardiac cirrhosis Cirrhosis of liver without mention of alcohol documented in this encounter Care Teams [place] Relationship Specialty Start Date End Date Noemi Sharma APRN [address] [place] [address] PCP - General Family Medicine 07/28/20 documented as of this encounter
--- OUTSIDE RECORDS SUMMARY | 2023-09-06 01:37 | XMS_ITS | Encounter Summary ---
Author Organization [facility] [place] [address] Care Team Providers Care Computer Information Systems Professor Name Role Phone Noemi Sharma COMPACTOR DRIVER Primary Care Provider [phone] Reason for Visit * Reason Comments Medication Refill Encounter Details Date Type Department Care Team (Late st Contact Info) Description 07/19/2023 Refill Cardiology at [address] [phone] Homer Dobbs MD [facility] [place] [address] Medication Refill Social History Tobacco Use Types [...] 11:00 AM EDT Office [place] [address] Mague Johnson MD [facility] [address] [place] [address] documented as of this encounter Visit Diagnoses Diagnosis Chronic right-sided heart failure- Primary Congestive heart failure, unspecified Fluid retention Other fluid overload documented in this encounter Care Teams Computer Information Systems Professor Relationship Specialty Start Date End Date Nomei Sharma APRN [address] [place] [address] PCP - General Family Medicine 07/28/20 documented as of this encounter
--- OUTSIDE RECORDS SUMMARY | 2023-09-06 01:37 | XMS_ITS | Encounter Summary ---
Author Organization [facility] Address [place] [address] Care Team Providers Care Postmaster Relief Name Role Phone Noemi Sharma JANNA Primary Care Provider [phone] Encounter Details Date Type Department Care Team (Latest Contact Info) Description 07/02/2022 4:00 PM EDT TH Visit (TeleHealth) [place] [address] Mague Johnson MD [facility] [place] [address] Controlled type 2 diabetes mellitus without complication, with long-term current use of insulin; Vitamin D deficiency Social History Tobacco Use Types Packs/Day Years [...] Sign Reading Time Taken Comments Blood Pressure 120/60 07/02/2022 4:09 PM EDT Pulse 70 07/02/2022 4:09 PM EDT Temperature - - Respiratory Rate 10 07/02/2022 4:09 PM EDT Oxygen Saturation - - Inhaled Oxygen Concentration - - Weight 84.8 kg (187 lb) 07/02/2022 4:09 PM EDT Height 157.5 cm (5' 2) 07/02/2022 4:09 PM EDT Body Mass Index 34.2 07/02/2022 4:09 PM EDT documented in this encounter Patient Instructions * Patient Instructions* Mague Johnson MD - 07/02/2022 4:00 PM EDT Recommendation: 1. Medication: Patient will continue ozempic pen 2 mg sc weekly. This will help reduce weight and cardiovascular outcomes for her with diabetes, CHF and cardiac cirrhosis. To cont glimiperide 4 mg 2 tab daily. To hold if low BG<80 or NPO To continue farxiga 5 mg daily. She may increase to 10 mg daily if higher A1c >7.5% next time. (Already stopped 70/30 mis insulin 10u qAM and 16u qPM 2x/day) Target A1c <7% safely *Intolerant to metformin and Jardiance due to GI issues To cont taking OTC-Vitamin D 5,000 iu daily and OTC-B12 2,000 mcg daily for her vitD deficiency andlow normal B12 in 300s (optimal 400-1000). => If vitD is low, she will increase vitamin D using prescription vitD 50,000 iu weekly. To continue all other medications. 2. Monitoring: to continue to monitor finger stick blood glucose before each meal and at bedtime. Target BG 80-150 fasting, 80-150 pre-meal and below 180-200 if checking 1-2 h post meal. Target A1c < 7% for this patient. 3. Diet and exercise: Patient was counselled on medical nutritional therapy, the importance of complying with diabetes medications as well as low fat/low carb diet & exercise as tolerated to keepweight down or at least stable. 4. Prevention: Patient was counselled on importance of yearly ophtalmologist and foot maintenance, checking daily for ulcers, keeping feet warm and dry and to monitor for loss of sensation. Blood pressure target with DM is below 140/90 and patient is currently meeting this goal. Patient could not tolerate AYANNA inhibitor or ARB and has been taking spironolactone 50 mg daily for its cardio-renal protective effects. Lipid profile with target LDL below 100 for diabetic patients and below 70 with CAD and patient is currently meeting this goal. To cont statin and follow with PCP and green tire inspector further for her lipid issue. 5. Lab: to check lab as ordered in 3 month with PCP locally (non-fasting is ok). Orders Placed This Encounter Procedures Hemoglobin A1c Vitamin D, 25-Hydroxy We will let patient know test lab test results and adjust medication if needed during this interim. 6. RTC: Next visit in 6 months so we can help adjust DM medication regimen further. Mague Johnson MD, PhD, FACE, FACP documented in this encounter Progress Notes * Mague Johnson MD - 07/02/2022 4:00 PM EDT Endocrine Follow-up Note Date: 07/02/2022 Patient: Name: Teresita Fernández : 1965 PCP: Noemi Sharma APRN Reason for follow-up: Type 2 diabetes with improvement of obesity on ozempic without insulin need. BMI down from 41.5 to 34 now. Brief History of Present Illness: Teresita Fernández is a very pleasant 57 y.o. female with the following problem list: Patient Active Problem List Diagnosis Code ??? Abdominal pain, RUQ (right upper quadrant) R10.11 ??? Abnormal LFTs (liver function tests) R79.89 ??? Hiatal hernia K44.9 ??? 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 Chronic right-sided heart failure I50.812 ??? Cardiac cirrhosis K76.1 ??? SOB (shortness of breath) R06.02 ??? Chest pain R07.9 ??? Fever R50.9 ??? HCAP (healthcare-associated pneumonia) J18.9 ??? Chronic diastolic congestive heart failure I50.32 ??? Pain in left arm M25.512 ??? Morbid obesity with body mass index (BMI) of 40.0 to 44.9 in adult E66.01, Z68.41 ??? Depressive disorder F32.A ??? Anxiety F41.9 ??? Diabetes mellitus E11.9 ??? Hyperlipidemia E78.5 ??? Tricuspid valve insufficiency I07.1 ??? BHARATI (obstructive sleep apnea) G47.33 ??? Polycystic ovarian syndrome E28.2 ??? Anemia D64.9 ??? Asthma J45.909 ??? Lymphedema of extremity I89.0 ??? Hyperkalemia E87.5 ??? Primary hypertension I10 ??? Restrictive lung disease J98.4 ??? Sinus tachycardia R00.0 Diabetes History: Teresita Fernández has had diabetes since age of 36 and intolerant to metformin & Jardiance and hasbeen using insulin since 2017. 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 She has HTN, HLP, 2ry polycythemia from smoking (02/24 ppd x 15 yrs) seen by wool spotter, market risk specialist (Dr. Farnsworth) and green tire inspector (Dr. Sullivan) here. She has had diabetes since young age in her 30s. She started ozempic pen 0.25 mg - 0.5 mg -> 1 mg sc weekly (since Oct 2020) without GI side effects and already increased to optimal dose 2 mg sc weekly since 05/18/21 Current outpatient diabetes regimen: Medications: Ozempic 2 mg sc weekly, glimiperide 4mg 2 tab daily and Farxiga 5 mg daily BGFS Monitoring is done 2-3x times a day, ranging between 70s-150s mg/dl over the past 2 weeks. Used to get low to 59 prior prior but lately it was better lately. HbA1c was done on 07/17/20 and was 8.1%=> 7.0% (01/20/21) => 7.4% (03/27/21)=> 6.4% (10/09/21)!! => 7.0-7.5% lately (05/04/22) Typical diet is: 3 meals and 0-1 snack a day Breakfast- skipped Lunch- turkey sandwich Supper- half a cup of chopsouey Drink - water Snack - may have protein shake at bedtime Diet plan: low carb low fat diet Typical exercise regimen is walking. Son got in 10/25/20 (she has only 1 son age 25 now and got several yrs ago) lives alone - lots of stress Trouble with hypoglycemia over the past 3 months ([]) no ([X]) yes Symptomatic when BG < 70 ( shaky, sweaty, dizzy, altered and hungry). Hypoglycemia happens rarely down to 50s in the past. Diabetes Complications Status: Patient denies any history of diabetic retinopathy, nephropathy, neuropathy. No history of foot ulcers. Currently not taking an AYANNA inhibitor (or ARB) due to allery or no aspirin due to cardiac cirrhosis- unable to take tylenol, etc. ROS: Constitutional: better from fatigue, + recent weight changes down 22 lbs since last fall from 209 to 187 lbs! No polyuria & polydipsia Endocrine: No thyroid problems Eyes: No recent vision change ENT: No dysphagia, dental issues Cardiovascular: No chest pain or palpitation Respiratory: No wheezing. some shortness of breath d/t restrictive lung disease. GI: No nausea, vomiting, diarrhea, constipation : No frequent urinary tract infections. No low sexual desire Integument: No ulcerations or easily bruising skin. Neurological: No weakness or numbness. No seizure, fainting or dizziness. Musculoskeletal: Some joint aches and muscle pain. Psych: +treated for depression and anxiety Past medical history is significant for: Patient Active Problem List Diagnosis Code ??? Abdominal pain, RUQ (right upper quadrant) R10.11 ??? Abnormal LFTs (liver function tests) R79.89 ??? Hiatal hernia K44.9 ??? 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 Chronic right-sided heart failure I50.812 ??? Cardiac cirrhosis K76.1 ??? SOB (shortness of breath) R06.02 ??? Chest pain R07.9 ??? Fever R50.9 ??? HCAP (healthcare-associated pneumonia) J18.9 ??? Chronic diastolic congestive heart failure I50.32 ??? Pain in left arm M25.512 ??? Morbid obesity with body mass index (BMI) of 40.0 to 44.9 in adult E66.01, Z68.41 ??? Depressive disorder F32.A ??? Anxiety F41.9 ??? Diabetes mellitus E11.9 ??? Hyperlipidemia E78.5 ??? Tricuspid valve insufficiency I07.1 ??? BHARATI (obstructive sleep apnea) G47.33 ??? Polycystic ovarian syndrome E28.2 ??? Anemia D64.9 ??? Asthma J45.909 ??? Lymphedema of extremity I89.0 ??? Hyperkalemia E87.5 ??? Primary hypertension I10 ??? Restrictive lung disease J98.4 ??? Sinus tachycardia R00.0 AMBULATORY MEDICATIONS: Current Outpatient Medications on File Prior to Visit Medication Sig Dispense Refill ??? cyanocobalamin, Vitamin B-12, (Vitamin B-12) 1,000 mcg Tablet Take 1,000 mcg by mouth daily. ??? cholecalciferol, Vitamin D3, 50 mcg (2,000 unit) Capsule Take 2,000 Units by mouth daily. ??? lactobacillus rhamnosus, GG, (CULTURELLE) 10 billion cell Capsule Take 1 capsule by mouth daily. ??? atorvastatin (Lipitor) 20 mg Tablet Take 1 tablet by mouth daily. 90 tablet 3 ??? metoprolol succinate XL (Toprol-XL) 50 mg Tablet Sustained Release 24 hr Take 1 tablet by mouthdaily. 90 tablet 3 ??? spironolactone (ALDACTONE) 50 mg Tablet Take 1 tablet by mouth daily. 90 tablet 3 ??? [DISCONTINUED] furosemide (Lasix) 20 mg Tablet Take 1 tablet by mouth daily. 90 tablet 3 ??? melatonin 5 mg Tablet TAKE ONE TO TWO TABLETS BY MOUTH AT BEDTIME ??? omeprazole (PriLOSEC) 20 mg Capsule, Delayed Release(E.C.) Take 20 mg by mouth daily. ??? [DISCONTINUED] montelukast (Singulair) 10 mg Tablet Take 10 mg by mouth daily. ??? Ozempic 1 mg/dose (2 mg/1.5 mL) Pen Injector Inject 1 mg subcutaneously every 7 days. 9 mL 3 ??? [DISCONTINUED] loratadine (Claritin) 10 mg Tablet Take 10 mg by mouth daily. ??? fluticasone propionate (Flonase) 50 mcg/actuation Bath, Suspension INSTILL 1 SPRAY INTO BOTH NOSTRILS TWICE A DAY ??? glimepiride (AMARYL) 4 mg Tablet Take 1-2 tablets by mouth daily. 180 tablet 3 ??? [DISCONTINUED] BD Veo Insulin Syringe UF 0.3 mL 31 gauge x 15/64 Syringe ??? [DISCONTINUED] valACYclovir (VALTREX) 1 gram Tablet ??? [DISCONTINUED] insulin NPH hum/reg insulin hm (NOVOLIN 70/30 U-100 INSULIN SUBQ) Inject 10-16 Units subcutaneously 2 times daily. 12 units in am and 18 units in pm ??? albuterol 90 mcg/actuation HFA Aerosol Inhaler Inhale 2 puffs into the lungs 4 times daily as needed for Wheezing (VENTOLIN). Use with spacer ??? escitalopram (LEXAPRO) 20 mg Tablet Take 20 mg by mouth daily. No current facility-administered medications on file prior to visit. ADR/ALLERGIES: Allergies Allergen Reactions ??? Latex Rash ??? Metformin Diarrhea ??? Scopolamine Itching and Rash Itching erythematous rash resolved with scop patch removal. ??? Adhesive Bandage Localized Reaction ??? Amoxicillin Trihydrate Rash ??? Doxycycline Rash, diarrhea, upset stomach ??? Jardiance [Empagliflozin] ??? Metronidazole ??? Penicillins Rash ??? Sulfa (Sulfonamide Antibiotics) Rash ??? Symbicort [Budesonide-Formoterol] Upset stomach and dizziness ??? Varicella-Zoster Virus Glycoprotein E, Recombinant Other reaction(s): Local reaction- redness and swelling SOCIAL HISTORY/HABITS Social History Socioeconomic History ??? Marital status: Spouse name: Not on file ??? Number of children: Not on file ??? Years of education: Not on file ??? Highest education level: Not on file Occupational History ??? Not on file Tobacco Use ??? Smoking status: Every Day Packs/day: 0.25 Years: 15.00 Pack years: 3.75 Types: Cigarettes Last attempt to quit: 02/20/1996 Years since quittin.3 ??? Smokeless tobacco: Never Vaping Use ??? Vaping Use: Never used Substance and Sexual Activity ??? Alcohol use: No ??? Drug use: No ??? Sexual activity: Yes Partners: Male Other Topics Concern ??? Not on file Social History Narrative ??? Not on file Social Determinants of Health Financial Resource Strain: Not on file Food Insecurity: Not on file Transportation Needs: Not on file Physical Activity: Not on file Housing Stability: Not on file FAMILY HISTORY Family History Problem Relation Age of Onset ??? Type 1 Diabetes Other ??? Autoimmune Disorder Other ??? Heart Disease Mother ??? Cerebrovascular Accident Mother 64 ??? Diabetes Mother ??? Diabetes Sister ??? Arthritis Sister ??? Arthritis Brother ??? Diabetes Brother ??? Arthritis Brother ??? Diabetes Brother ??? Diabetes Brother Physical Exam BP 120/60 Pulse 70 Resp 10 Ht 157.5 cm (5' 2) Wt 84.8 kg (187 lb) BMI 34.20 kg/m?? Appearance: mildly-obese, very pleasant, NAD HEENT: PERRLA, EOMI, no lid lag or exophthalmos Neck: supple, no goiter visible Ext: normal skin appearance no edema Neuro: no weakness, non-focal, no facial asymmetry. PE from last in-person visit Appearance: Patient is very pleasant white female, obese, clinically euthyroid, not in acute distress Skin - normal in texture and temperature, minimal acanthosis nigricans around the nape of the neck,+ posterior cervical hump, no abnormal striae or ecchymosis. HEENT - PERRLA, EOMI, no lid lag or exophthalmos. Normal gum and oropharynx. Neck - supple, no goiter or nodule, no lymphadenopathy, no carotid bruit Lungs - Normal chest expansion, no crackles or wheeze Heart - regular rhythm, normal apical impulse, normal S1, S2 and no murmur Abdomen - soft, non-tender Extremities - no pitting edema, normal distal pulses, no proximal muscle weakness, reflexes were normal or slightly depressed all. Feet - no foot ulcer, foot sensation was intact per monofilament testing RECENT LABS: Outside lab 07/17/2012/1101/20/21 03/27/21 07/07/21 10/09/21 01/20/22 05/04/22 A1c 8.1%H 7.1 7.0 7.4 7.3% 6.4% 7.0% 7.5% TSH 0.84 0.84 0.8 CBC H/H 16/48% CMP Ok (Cr 1.1, Ca 9.6, ALT 34) Ok Cr 1.1 TC/LDL 264H/177H 157/84 TG/HDL 252H/37L 187/36L 25vitamin D 28L 27.9L 33.3 32.5, low normal (nl 30-100) B12 347 793 GGT 66H Normal CMP Urine microalbumin/Cr- negative Outside lab 07/07/21 showed A1c 7.3% (was 7.4% in Mar), good thyroid and better B12 at 793 (was 347)but still low 25vitamin D at 27.9 (was 28; normal 30-100) => to take OTC-vitamin D 2,000 iu daily without missing it (otherwise she needs to double the dose) and continue OTC-B12 500 mcg daily further. 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 She also has HTN, HLP, 2ry polycythemia from smoking (02/24 ppd x 15 yrs) seen by wool spotter, market risk specialist (Dr. Farnsworth) and green tire inspector (Dr. Sullivan) here. She has had diabetes since young age in her 30s over 20 yrs ago so we will check lab for baseline c-peptide to see if she still makes endogenous insulin to be able to respond well to GLP1 analogue which will help her lose weight with better cardiovascular outcomes. Unfortunately she could not tolerate metformin and Jardiance due to severe GI side effects. We tried to optimize glimiperide pill and titrate ozempic pen weekly up further and cut back insulin further andweight down with goal to keep BMI <35 and A1c <7% safely without hypo- or severe hyperglycemia. She started ozempic pen 0.25 mg - 0.5 mg weekly since Oct 2020 without GI side effects and already increased to optimal dose 1 mg sc weekly since 05/18/21. Recommendation: 1. Medication: Patient will continue ozempic pen 2 mg sc weekly. This will help reduce weight and cardiovascular outcomes for her with diabetes, CHF and cardiac cirrhosis. To cont glimiperide 4 mg 2 tab daily. To hold if low BG<80 or NPO To continue farxiga 5 mg daily. She may increase to 10 mg daily if higher A1c >7.5% next time. (Already stopped 70/30 mis insulin 10u qAM and 16u qPM 2x/day) Target A1c <7% safely *Intolerant to metformin and Jardiance due to GI issues To cont taking OTC-Vitamin D 5,000 iu daily and OTC-B12 2,000 mcg daily for her vitD deficiency andlow normal B12 in 300s (optimal 400-1000). => If vitD is low, she will increase vitamin D using prescription vitD 50,000 iu weekly. To continue all other medications. 2. Monitoring: to continue to monitor finger stick blood glucose before each meal and at bedtime. Target BG 80-150 fasting, 80-150 pre-meal and below 180-200 if checking 1-2 h post meal. Target A1c < 7% for this patient. 3. Diet and exercise: Patient was counselled on medical nutritional therapy, the importance of complying with diabetes medications as well as low fat/low carb diet & exercise as tolerated to keepweight down or at least stable. 4. Prevention: Patient was counselled on importance of yearly ophtalmologist and foot maintenance, checking daily for ulcers, keeping feet warm and dry and to monitor for loss of sensation. Blood pressure target with DM is below 140/90 and patient is currently meeting this goal. Patient could not tolerate AYANNA inhibitor or ARB and has been taking spironolactone 50 mg daily for its cardio-renal protective effects. Lipid profile with target LDL below 100 for diabetic patients and below 70 with CAD and patient is currently meeting this goal. To cont statin and follow with PCP and green tire inspector further for her lipid issue. 5. Lab: to check lab as ordered in 3 month with PCP locally (non-fasting is ok). Orders Placed This Encounter Procedures ??? Hemoglobin A1c ??? Vitamin D, 25-Hydroxy We will let patient know test lab test results and adjust medication if needed during this interim. 6. RTC: Next visit in 6 months so we can help adjust DM medication regimen further. We have reviewed our plan outlined above with the patient and patient verbalized understanding. Allquestions were answered, spent approximately 60 minutes together during today's visit, of which more than 40 minutes was spent in counseling about diet, exercise, medications adjustment and proper use of DM medication, cardiac risk prophylaxis, the diagnostic and therapeutic decisions, and coordination of care. Thank you for allowing me to participate in the care of this very pleasant and interesting patient. Mague Johnson MD, PhD, FACE, FACP CC: Noemi Sharma APRN documented in this encounter Plan of Treatment Upcoming Encounters Date Type Department Care Team (Late st Contact Info) Description 09/14/2023 11:00 AM EDT Office Visit [place] [address] Mague Johnson MD [facility] [place] [address] documented as of this encounter Visit Diagnoses Diagnosis Controlled type 2 diabetes mellitus without complication, with long-term current use of insulin Vitamin D deficiency Unspecified vitamin D deficiency documented in this encounter Care Teams Postmaster Relief Relationship Specialty Start Date End Date Noemi Sharma APRN [address] [place] [address] PCP - General Family Medicine 07/28/20 documented as of this encounter
--- OUTSIDE RECORDS SUMMARY | 2023-09-06 01:37 | XMS_ITS | Encounter Summary ---
Author Organization [facility] Address [facility] [place] [address] Care Team Providers Care Park Aide Name Role Phone Noemi Sharma SENIOR BUYER PLANNER Primary Care Provider [phone] Encounter Details Date Type Department Care Team (Late st Contact Info) Description 05/18/2022 External Results [place] [address] aKren Farnsworth MD [facility] [place] [address] Social History Tobacco Use Types Packs/Day Years [...] 11:00 AM EDT Office [place] [address] aMgue Johnson MD [facility] [place] [address] documented as of this encounter Procedures Procedure Name Priority Date/Time Associated Diagnosis Comments EXTERNAL LAB CBC CMP THYROID RESULTS PANEL Routine 05/17/2022 documented in this encounter Results * CBC / CMP / Thyroid External Results (05/17/2022) WBC 10.01 RBC 5.35 Hemoglobin 15.6 Hematocrit 46.9 MCV 88.0 Platelets 365 Historical Provider EXTERNAL LAB SALINAS LANDIS documented in this encounter Visit Diagnoses Not on filedocumented in this encounter Care Teams Park Aide Relationship Specialty Start Date End Date Noemi Sharma APRN [address] [place] [address] PCP - General Family Medicine 07/28/20 documented as of this encounter
--- OUTSIDE RECORDS SUMMARY | 2023-09-06 01:37 | XMS_ITS | Data Portability ---
Author Organization [place] - [facility] [place] [address] Assessment Encounter Date Assessment Date Assessment LastModified by Organization Details LastModified Time 03/08/2023 03/08/2023 Flu vaccine: current Comirnaty: declines Td: current PCV20: declines Shingrix: Declines 2nd r/t reaction RSV: n/a Pap/ HPV: Due Feb 13 Mammogram: current, desires every 2. CRC: current DEXA: n/a prosper Not available 03/08/2023 08:24:11 06/21/2023 06/21/2023 Flu vaccine: current Comirnaty: declines Td: current due 2030 PCV20: declines Shingrix: Declines 2nd r/t reaction RSV: n/a Pap/ HPV: Due Feb 13 Mammogram: current, last 05/13, desires every 2 years CRC: current; last 2022, recommend repeat 2027 DEXA: n/a The total time devoted to today's encounter, including both the [id number] time with the patient and/or family/caregi jillian and hig-mvbu-bf-f mukul time I personally spent is 32 minutes. Follow-up in 3 Months. Call or RTO sooner if needs arise. [email or web address] Not available 06/21/2023 09:23:29 Plan of Treatment Reminders Order Date Submit Date Provider Last Modified By Organization Details Last Modified Time Details Appointments Follow Up 2023 03:00P M NOEMI HYDE Not available Not available Not available Lab hemoglobi n A1C, fingersti ck 2023 024 [email or web address] [facility], [address] [place], [address], 03/08/2023 09:27:25 lipid panel, serum 2023 024 [email or web address] [facility] [address] [place] [address] [place], [address], 03/15/2023 08:19:51 CMP, serum or plasma 2023 024 [email or web address] [facility] [address] [place] [address] [place], [address], 03/14/2023 10:25:11 afp (alpha-fe toprotein ) tumor marker, serum or plasma 2023 024 [email or web address] [facility] [address] [place] [address] [place], [address], 03/22/2023 08:57:47 CBC w/ diff 2023 024 [email or web address] [facility] [address] [place] [address] [place], [address], 03/15/2023 08:19:50 magnesium , serum or plasma 2023 024 [email or web address] [facility] [address] [place] [address] [place], [address], 03/15/2023 08:19:50 vitamin B12, serum 2023 024 [email or web address] [facility] [address] [place] [address] [place], [address], 03/15/2023 08:19:50 PT/PTT, plasma 2023 024 [email or web address] [facility] [address] [place] [address] [place], [address], 03/15/2023 08:19:51 vitamin D, 25-hydrox y, total, serum 2023 024 LUCIA [facility] ([facility]), [address] [place] [address] [place], [address], 03/14/2023 10:16:10 TSH, serum, reflex free T4 2023 024 [email or web address] [facility] ([facility]), [address] [place] [address] [place], [address], 03/15/2023 08:19:50 Referral None recorded. Procedures None recorded. Surgeries None recorded. Imaging US, abdomen, limited - due in August 242023 024 [email or web address] [facility] (Radiology), [address] [place] [address] [place], [address], 08/31/2023 08:11:08 Medication Orders None recorded. Patient TargetsNo targets recorded. Patient Instructions Encounter Date Encounter Id Patient Instructions Last Modified By Organization Details Last Modified Time 03/08/2023 [id number] weight managemen t education Not available 03/08/2023 09:48:35 learning about healthy weight Not available 03/08/2023 09:48:35 06/21/2023 [id number] starting a weigh t loss plan: care instructions Not available 06/21/2023 09:23:24 diet Not available 2023 09:23:24 exercise Not available 2023 09:23:24 Reason for Referral None Reported. Results Created Date Observation Date Name Description Value Unit Range Abnormal Flag LastModifiedBy Organization Detail LastModifiedTime 03/08/1903/08/2023 hemog lobin A1C, finge rstic k HGBA1C 8.1 % <5.7 Not Available [address], [address], 03/08/2023 09:13:53 03/14/19 24 03/14/2023 COMPL ETE BLOOD COUNT W/DIF F WBC 11.19 10_3/ uL 4.4-10 .8 high Not Available [address] [place], [address] 03/14/2023 08:59:57 03/14/19 24 03/14/2023 COMPL ETE BLOOD COUNT W/DIF F RBC 5.62 10_6/ uL 3.93-5 .22 high Not Available [address] [place], [address] 03/14/2023 08:59:57 03/14/19 24 03/14/2023 COMPL ETE BLOOD COUNT W/DIF F HGB 16.7 g/dL 11.2-1 5.7 high Not Available [address] [place], [address] 03/14/2023 08:59:57 03/14/19 24 03/14/2023 COMPL ETE BLOOD COUNT W/DIF F HCT 50.1 % 36.0-4 6.0 high Not Available [address] [place], [address] 03/14/2023 08:59:57 03/14/19 24 03/14/2023 COMPL ETE BLOOD COUNT W/DIF F MCV 89 fL 80-95 normal Not Available [address] [place], [address] 03/14/2023 08:59:57 03/14/19 24 03/14/2023 COMPL ETE BLOOD COUNT W/DIF F MCH 29.7 pg 27.0-3 3.0 normal Not Available [address] [place], [address] 03/14/2023 08:59:57 03/14/19 24 03/14/2023 COMPL ETE BLOOD COUNT W/DIF F MCHC 33.3 % 32.0-3 6.0 normal Not Available [address] [place], [address] 03/14/2023 08:59:57 03/14/19 24 03/14/2023 COMPL ETE BLOOD COUNT W/DIF F RDW 14.6 % 11.7-1 4.6 normal Not Available [address] [place], [address] 03/14/2023 08:59:57 03/14/19 24 03/14/2023 COMPL ETE BLOOD COUNT W/DIF F platelet count 335 10_3/ uL 130-40 0 normal Not Available [address] [place], [address] 03/14/2023 08:59:57 03/14/19 24 03/14/2023 COMPL ETE BLOOD COUNT W/DIF F MPV 10.2 fL 8.0-11 .0 normal Not Available [address] [place], [address] 03/14/2023 08:59:57 03/14/19 24 03/14/2023 COMPL ETE BLOOD COUNT W/DIF F neutrophils % 63.3 Not Available [address] [place], [address] 03/14/2023 08:59:57 03/14/19 24 03/14/2023 COMPL ETE BLOOD COUNT W/DIF F lymphocytes % 29.5 Not Available [address] [place], [address] 03/14/2023 08:59:57 03/14/19 24 03/14/2023 COMPL ETE BLOOD COUNT W/DIF F monocytes % 4.9 Not Available [address] [place], [address] 03/14/2023 08:59:57 03/14/19 24 03/14/2023 COMPL ETE BLOOD COUNT W/DIF F eosinophils % 1.3 Not Available [address] [place], [address] 03/14/2023 08:59:57 03/14/19 24 03/14/2023 COMPL ETE BLOOD COUNT W/DIF F basophils % 0.6 Not Available [address] [place], [address] 03/14/2023 08:59:57 03/14/19 24 03/14/2023 COMPL ETE BLOOD COUNT W/DIF F immature grans % 0.[address] [facility] [address] [place], [address] 03/14/2023 08:59:57 03/14/19 24 03/14/2023 COMPL ETE BLOOD COUNT W/DIF F nucleated RBC 0.0 % 0.0-0. 3 normal Not Available [address] [place], [address] 03/14/2023 08:59:57 03/14/19 24 03/14/2023 COMPL ETE BLOOD COUNT W/DIF F absolute neutrophil count 7.08 10_3/ uL 1.2-6. 7 high Not Available [address] [place], [address] 03/14/2023 08:59:57 03/14/19 24 03/14/2023 COMPL ETE BLOOD COUNT W/DIF F absolute lymphocyte count 3.30 10_3/ uL 1.2-3. 4 normal Not Available [address] [place], [address] 03/14/2023 08:59:57 03/14/19 24 03/14/2023 COMPL ETE BLOOD COUNT W/DIF F absolute monocyte count 0.55 10_3/ uL 0.1-0. 8 normal Not Available [address] [place], [address] 03/14/2023 08:59:57 03/14/19 24 03/14/2023 COMPL ETE BLOOD COUNT W/DIF F absolute eosinophil count 0.15 10_3/ uL 0.0-0. 7 normal Not Available [address] [place], [address] 03/14/2023 08:59:57 03/14/19 24 03/14/2023 COMPL ETE BLOOD COUNT W/DIF F absolute basophil count 0.07 10_3/ uL 0.0-0. 2 normal Not Available [address] [place], [address] 03/14/2023 08:59:57 03/14/19 24 03/14/2023 PROTH ROMBI N TIME prothrombin time 10.6 sec 9.1-11 .1 normal Not Available [address] [place], [address] 03/14/2023 09:13:02 03/14/19 24 03/14/2023 PROTH ROMBI N TIME INR 1.1 0.9-1. 1 normal Not Available [address] [place], [address] 03/14/2023 09:13:02 03/14/19 24 03/14/2023 PTT ACTIV ATED PTT activated 26.3 sec 23.6-3 2.8 normal Not Available [address] [place], [address] 03/14/2023 09:13:03 03/14/19 24 03/14/2023 HEMOG LOBIN A1C hemoglobin A1C 8.0 % <5.7 high Not Available [address] [place], [address] 03/14/2023 10:01:06 03/14/19 24 03/14/2023 VITAM IN D 25 TOTAL vitamin D 25 total 66.0 NG/mL 30-100 normal Not Available [address] [place], [address] 03/14/2023 10:16:10 03/14/19 24 03/14/2023 COMPR EHENS JUSTIN METAB OLIC PANEL calcium 9.4 mg/dL 8.5-10 .1 normal Not Available [address] [place], [address] 03/14/2023 10:25:10 03/14/19 24 03/14/2023 COMPR EHENS JUSTIN METAB OLIC PANEL glucose 148 mg/dL 74-106 high Not Available [address] [place], [address] 03/14/2023 10:25:10 03/14/19 24 03/14/2023 COMPR EHENS JUSTIN METAB OLIC PANEL BUN 11 mg/dL 7-18 normal Not Available [address] [place], [address] 03/14/2023 10:25:10 03/14/19 24 03/14/2023 COMPR EHENS JUSTIN METAB OLIC PANEL creatinine 1.0 mg/dL 0.55-1 .02 normal Not Available [address] [place], [address] 03/14/2023 10:25:10 03/14/19 24 03/14/2023 COMPR EHENS JUSTIN METAB OLIC PANEL estimated GFR 66.12 mL/min /1.73m 2 Not Available [address] [place], [address] 03/14/2023 10:25:10 03/14/19 24 03/14/2023 COMPR EHENS JUSTIN METAB OLIC PANEL total protein 7.5 g/dL 6.4-8. 2 normal Not Available [address] [place], [address] 03/14/2023 10:25:10 03/14/19 24 03/14/2023 COMPR EHENS JUSTIN METAB OLIC PANEL albumin 3.8 g/dL 3.4-5. 0 normal Not Available [address] [place], [address] 03/14/2023 10:25:10 03/14/19 24 03/14/2023 COMPR EHENS JUSTIN METAB OLIC PANEL bilirubin, total 0.9 mg/dL 0.2-1. 0 normal Not Available [address] [place], [address] 03/14/2023 10:25:10 03/14/19 24 03/14/2023 COMPR EHENS JUSTIN METAB OLIC PANEL alk phos 129 U/L 46-116 high Not Available Nohemy [address] [place], [address] 03/14/2023 10:25:10 03/14/19 24 03/14/2023 COMPR EHENS JUSTIN METAB OLIC PANEL sodium 140 mmol/ L 136-14 5 normal Not Available [address] [place], [address] 03/14/2023 10:25:10 03/14/19 24 03/14/2023 COMPR EHENS JUSTIN METAB OLIC PANEL potassium 4.6 mmol/ L 3.5-5. 1 normal Not Available [address] [place], [address] 03/14/2023 10:25:10 03/14/19 24 03/14/2023 COMPR EHENS JUSTIN METAB OLIC PANEL chloride 103 mmol/ L 98-107 normal Not Available [address] [place], [address] 03/14/2023 10:25:10 03/14/19 24 03/14/2023 COMPR EHENS JUSTIN METAB OLIC PANEL CO2 26.7 mmol/ L 21.0-3 2.0 normal Not Available [address] [place], [address] 03/14/2023 10:25:10 03/14/19 24 03/14/2023 COMPR EHENS JUSTIN METAB OLIC PANEL anion gap 10.3 mmol/ L 3-11 normal Not Available [address] [place], [address] 03/14/2023 10:25:10 03/14/19 24 03/14/2023 COMPR EHENS JUSTIN METAB OLIC PANEL AST 31 U/L 15-37 normal Not Available [address] [place], [address] 03/14/2023 10:25:10 03/14/19 24 03/14/2023 COMPR EHENS JUSTIN METAB OLIC PANEL ALT 37 U/L 14-59 normal Not Available [address] [place], [address] 03/14/2023 10:25:10 03/14/19 24 03/14/2023 LIPID 2 cholesterol 166 mg/dL <200 Not Available [address] [place], [address] 03/14/2023 10:25:12 03/14/19 24 03/14/2023 LIPID 2 triglyceride 230 mg/dL <150 high Not Available [address] [place], [address] 03/14/2023 10:25:12 03/14/19 24 03/14/2023 LIPID 2 HDL cholesterol 46 mg/dL 40-60 Not Available [address] [place], [address] 03/14/2023 10:25:12 03/14/19 24 03/14/2023 LIPID 2 calculated LDL 74 mg/dL <100 Not Available [address] [place], [address] 03/14/2023 10:25:12 03/14/19 24 03/14/2023 MAGNE SIUM magnesium 1.9 mg/dL 1.8-2. 4 normal Not Available [address] [place], [address] 03/14/2023 10:25:12 03/14/19 24 03/14/2023 TSH (W/RE F FT4) TSH (w/ref FT4) 1.21 uIU/m L 0.36-3 .74 normal Not Available [address] [place], [address] 03/14/2023 10:25:13 03/14/19 24 03/14/2023 VITAM IN B12 vitamin B12 > 2000 pg/mL 193-98 6 high Not Available [address] [place], [address] 03/14/2023 10:25:13 03/14/19 24 03/14/2023 AFP TUMOR MARKE R AFP tumor marker 4.2 NG/mL <8.1 Not Available [address] [place], [address] 03/15/2023 09:14:04 06/16/19 24 06/16/2023 COMPL ETE BLOOD COUNT NO DIFF WBC 10.10 10_3/ uL 4.4-10 .8 normal Not Available [address] [place], [address] 06/16/2023 12:28:58 06/16/19 24 06/16/2023 COMPL ETE BLOOD COUNT NO DIFF RBC 5.58 10_6/ uL 3.93-5 .22 high Not Available [address] [place], [address] 06/16/2023 12:28:58 06/16/19 24 06/16/2023 COMPL ETE BLOOD COUNT NO DIFF HGB 16.7 g/dL 11.2-1 5.7 high Not Available [address] [place], [address] 06/16/2023 12:28:58 06/16/19 24 06/16/2023 COMPL ETE BLOOD COUNT NO DIFF HCT 50.5 % 36.0-4 6.0 high Not Available [address] [place], [address] 06/16/2023 12:28:58 06/16/19 24 06/16/2023 COMPL ETE BLOOD COUNT NO DIFF MCV 91 fL 80-95 normal Not Available [address] [place], [address] 06/16/2023 12:28:58 06/16/19 24 06/16/2023 COMPL ETE BLOOD COUNT NO DIFF MCH 29.9 pg 27.0-3 3.0 normal Not Available [address] [place], [address] 06/16/2023 12:28:58 06/16/19 24 06/16/2023 COMPL ETE BLOOD COUNT NO DIFF MCHC 33.1 % 32.0-3 6.0 normal Not Available [address] [place], [address] 06/16/2023 12:28:58 06/16/19 24 06/16/2023 COMPL ETE BLOOD COUNT NO DIFF RDW 14.4 % 11.7-1 4.6 normal Not Available [address] [place], [address] 06/16/2023 12:28:58 06/16/19 24 06/16/2023 COMPL ETE BLOOD COUNT NO DIFF platelet count 354 10_3/ uL 130-40 0 normal Not Available [address] [place], [address] 06/16/2023 12:28:58 06/16/19 24 06/16/2023 COMPL ETE BLOOD COUNT NO DIFF MPV 10.6 fL 8.0-11 .0 normal Not Available [address] [place], [address] 06/16/2023 12:28:58 06/16/19 24 06/16/2023 PROTH ROMBI N TIME prothrombin time 10.3 sec 9.1-11 .1 normal Not Available [address] [place], [address] 06/16/2023 12:38:01 06/16/19 24 06/16/2023 PROTH ROMBI N TIME INR 1.0 0.9-1. 1 normal Not Available [address] [place], [address] 06/16/2023 12:38:01 06/16/19 24 06/16/2023 COMPR EHENS JUSTIN METAB OLIC PANEL calcium 9.4 mg/dL 8.5-10 .1 normal Not Available [address] [place], [address] 06/16/2023 12:44:03 06/16/19 24 06/16/2023 COMPR EHENS JUSTIN METAB OLIC PANEL glucose 115 mg/dL 74-106 high Not Available [address] [place], [address] 06/16/2023 12:44:03 06/16/19 24 06/16/2023 COMPR EHENS JUSTIN METAB OLIC PANEL BUN 12 mg/dL 7-18 normal Not Available [address] [place], [address] 06/16/2023 12:44:03 06/16/19 24 06/16/2023 COMPR EHENS JUSTIN METAB OLIC PANEL creatinine 1.1 mg/dL 0.55-1 .02 high Not Available [address] [place], [address] 06/16/2023 12:44:03 06/16/19 24 06/16/2023 COMPR EHENS JUSTIN METAB OLIC PANEL estimated GFR 58.61 mL/min /1.73m 2 Not Available [address] [place], [address] 06/16/2023 12:44:03 06/16/19 24 06/16/2023 COMPR EHENS JUSTIN METAB OLIC PANEL total protein 7.5 g/dL 6.4-8. 2 normal Not Available [address] [place], [address] 06/16/2023 12:44:03 06/16/19 24 06/16/2023 COMPR EHENS JUSTIN METAB OLIC PANEL albumin 3.8 g/dL 3.4-5. 0 normal Not Available [address] [place], [address] 06/16/2023 12:44:03 06/16/19 24 06/16/2023 COMPR EHENS JUSTIN METAB OLIC PANEL bilirubin, total 0.5 mg/dL 0.2-1. 0 normal Not Available [address] [place], [address] 06/16/2023 12:44:03 06/16/19 24 06/16/2023 COMPR EHENS JUSTIN METAB OLIC PANEL alk phos 148 U/L 46-116 high Not Available [address] [place], [address] 06/16/2023 12:44:03 06/16/19 24 06/16/2023 COMPR EHENS JUSTIN METAB OLIC PANEL sodium 142 mmol/ L 136-14 5 normal Not Available [address] [place], [address] 06/16/2023 12:44:03 06/16/19 24 06/16/2023 COMPR EHENS JUSTIN METAB OLIC PANEL potassium 4.1 mmol/ L 3.5-5. 1 normal Not Available [address] [place], [address] 06/16/2023 12:44:03 06/16/19 24 06/16/2023 COMPR EHENS JUSTIN METAB OLIC PANEL chloride 105 mmol/ L 98-107 normal Not Available [address] [place], [address] 06/16/2023 12:44:03 06/16/19 24 06/16/2023 COMPR EHENS JUSTIN METAB OLIC PANEL CO2 25.6 mmol/ L 21.0-3 2.0 normal Not Available [address] [place], [address] 06/16/2023 12:44:03 06/16/19 24 06/16/2023 COMPR EHENS JUSTIN METAB OLIC PANEL anion gap 11.4 mmol/ L 3-11 high Not Available [address] [place], [address] 06/16/2023 12:44:03 06/16/19 24 06/16/2023 COMPR EHENS JUSTIN METAB OLIC PANEL AST 21 U/L 15-37 normal Not Available [address] [place], [address] 06/16/2023 12:44:03 06/16/19 24 06/16/2023 COMPR EHENS JUSTIN METAB OLIC PANEL ALT 33 U/L 14-59 normal Not Available [address] [place], [address] 06/16/2023 12:44:03 06/16/19 24 06/16/2023 HEMOG LOBIN A1C hemoglobin A1C 7.9 % <5.7 high Not Available [address] [place], [address] 06/16/2023 13:03:05 06/16/19 24 06/16/2023 VITAM IN D 25 TOTAL vitamin D 25 total 60.3 NG/mL 30-100 normal Not Available [address] [place], [address] 06/16/2023 20:38:12 06/16/19 24 06/17/2023 AFP TUMOR MARKE R AFP tumor marker 2.8 NG/mL <8.1 Not Available [address] [place], [address] 06/17/2023 09:45:26 03/14/19 24 03/14/2023 ultra sound imagi ng repor t Patien t Name: Teresita Goss Unit #: [id number] Loc: DI Orderi ng Provid er: Rafi Farnsworth Accham t #: [id number] Status : REG CLI Primar y Care Provid er: Yovana Martinez Date of Exam: Sex: F Admiss ion Date: : 1965 Age: 57 Exam(s ) US ABDOME N LIMITE D EXAM: US ABDOME N LIMITE D CLINIC AL HISTOR Y: HEPATI C FIBROS IS K74.00 FATTY LIVER K76.0 HCC SURVEI LLANCE TECHNI QUE: Ultras ound abdome n perfor med using standa rd protoc ol. COMPAR TC: US US ABDOME N LIMITE D from 2021 FINDIN GS: PANCRE : Normal where visual ized. LIVER: There is diffus e increa sed echoge nicity of the liver consis tent with fatty infilt ration . Hepato petal flow in the Portal Vein. The liver measur es in 16 cm length . GALLBL ADDER: Status post cholec ystect triston. BILIAR Y SYSTEM : Common bile duct measur es < 7 mm. No intrah epatic biliar y ductal dilati on. CHARLES 'S SIGN: Negati ve. RIGHT KIDNEY : Kidney is normal in size. No eviden ce of renal calcul i. No eviden ce of hydron ephros is. No renal mass or cyst identi fied. ASCITE S: None seen. IMPRES ANASTASIYA: 1. Diffus e fatty infilt ration of the liver. No eviden ce of a hepati c mass is seen sonogr aphica lly. 2. Status post cholec ystect triston. DATA REPOSI TORY: Rosa danielle By: Rafi Farnsworth CC: ------ ------ ------ ------ ------ ------ ------ ------ ------ ------ ------ ------ - Dictat ed By: Hadley Duran M.D. 1220 1220 Transc ribed By: Hadley Duran 1220 This is privil eged, confid ential inform ation intend ed only for the provid er named. Any use or distri bution by any person other than this [facility] er is strict ly prohib ited. If you receiv e this report in error, please notify us immedi ately at and return the origin al report to us at the addres s above. Thank- you. LUCIA [facility] [address] [place], [address] 03/15/2023 10:49:45 Result Notes None recorded. Problems Name Status Onset Date Resolution Date Notes Provider Name and Address Organization Details Recorded Time Ascites Active 2013 Problem Code: R18.8; Problem Code Type: ICD-10; [address], [place], [address] , [facility] 4 12:41:02 Chronic constrictive pericarditis Active 2013 Problem Code: I31.1; Problem Code Type: ICD-10; [address], [place], [address] , [facility] 4 12:41:03 Chronic right-sided heart failure Active 2013 Problem Code: I50.812; Problem Code Type: ICD-10; [address], [place], [address] , [facility] 4 12:41:02 Disorder of lung Active 2013 Problem Code: J98.4; Problem Code Type: ICD-10; [address], [place], [address] , [facility] 4 12:41:02 Chronic diastolic heart failure Active 2013 Problem Code: I50.32; Problem Code Type: ICD-10; [address], [place], [address] , [facility] 4 12:41:03 Rheumatic tricuspid valve regurgitation Active 2014 Problem Code: I07.1; Problem Code Type: ICD-10; [address], [place], [address] , [facility] 4 12:41:03 Severe obesity Active 2016 Problem Code: E66.01; Problem Code Type: ICD-10; [address], [place], [address] , [facility] 4 12:41:03 Type 2 diabetes mellitus [...] month. Refer to endocrinology . Will have disintegrator feeder reach out. Problem Code: E11.9; Problem Code Type: ICD-10; [address], [place], [address] , [facility] 4 12:41:02 Anxiety disorder Active 2016 Problem Code: F41.9; Problem Code Type: ICD-10; [address], [place], [address] , [facility] 4 12:41:02 Major depression, single episode Active 201607/17/2020 - Comments only - Noemi Hyde APRN - with anxiety. Continue medication regimen. Consider wean down from ativan when ready; discussed not recommended manager intermediate use. Problem Code: F32.9; Problem Code Type: ICD-10; [address], [place], [address] , [facility] 4 12:41:02 Obstructive sleep apnea syndrome Active 201607/17/2020 - Comments only - Noemi Hyde APRN - Encouraged weight loss through diet and activity. Encouraged used of CPAP. Talk with sleep clinic about adjustments or possible fitting for oral appliance. Problem Code: G47.33; Problem Code Type: ICD-10; [address], [place], [address] , [facility] 4 12:41:03 Essential hypertension Active 202007/17/2020 - Comments only - Noemi Hyde APRN - Stable. continue medication regimen. Check UA and MA. Problem Code: I10; Problem Code Type: ICD-10; [address], [place], [address] , [facility] 4 12:41:03 Diaphragmatic hernia Active 2020 Problem Code: K44.9; Problem Code Type: ICD-10; [address], [facility] [address] , [facility] 4 12:41:02 Benign neoplasm of colon Active 201807/17/2020 - Comments only - Noemi Hyde APRN - and family history of colon CA. Malo every [address] Wylie, last done 2018. Problem Code: D12.6; Problem Code Type: ICD-10; [address], [place], [address] , [facility] 4 12:41:03 Restless legs Active 202007/17/2020 - Comments only - Noemi Hyde APRN - more bothersome. Differentials include anemia, thryoid, electrolyte imbalance. Takes mag QHS through plexus system. Encouraged bar of dial soap in sheets, tonic water or pickle juice as desires. Check TSH with R, mag, iron stores, CBCD, CMP. Problem Code: G25.81; Problem Code Type: ICD-10; [address], [place], [address] , [facility] 4 12:41:02 Fatigue Active 2020 Problem Code: R53.83; Problem Code Type: ICD-10; [address], [place], [address] , [facility] 4 12:41:03 Hypothyroidis m Active 202007/17/2020 - Comments only - Noemi Hyde APRN - Check TSH with R. Adjust medication as indicated. Problem Code: E03.9; Problem Code Type: ICD-10; [address], [place], [address] , [facility] 4 12:41:02 Cirrhosis of liver Active 202007/15/2020 - Comments only - Noemi Hyde APRN - Dr Emmanuel for and every 6 months. last seen 06/11 Problem Code: K74.60; Problem Code Type: ICD-10; [address], [place], [address] , [facility] 4 12:41:02 Family history of malignant neoplasm of digestive organ Active 2020 Problem Code: Z80.0; Problem Code Type: ICD-10; [address], [place], [address] , [facility] 4 12:41:02 Lymphedema Active 202007/17/2020 - Comments only - Noemi Hyde APRN - s/p cardiac interventions . Has done PT in the past without relief. Sees a massage therapist monthly for this. Has a sleeve, encouraged to use this. Problem Code: I89.0; Problem Code Type: ICD-10; [address], [place], [address] , [facility] 4 12:41:02 Supraventricu lar tachycardia Active 2020 Problem Code: I47.1; Problem Code Type: ICD-10; [address], [place], [address] , [facility] 4 12:41:03 Headache Active 202007/17/2020 - Comments only - Noemi Hyde APRN - Encouraged rare use of APAP PRN. Avoid IBU. Stay well hydrated. Problem Code: R51.9; Problem Code Type: ICD-10; [address], [place], [address] , [facility] 4 12:41:02 Tobacco dependence caused by cigarettes Active 202007/17/2020 - Comments only - Noemi Hyde APRN - Encouraged smokin cessation. PPSV23 is current. Total pack history is 5 years. Desires nitrotrol; she will reachout to 802 quits and if not able to get through them, will provide Rx. Problem Code: F17.210; Problem Code Type: ICD-10; [address], [place], [address] , [facility] 4 12:41:02 High enzyme level in serum Active 202007/17/2020 - Comments only - Noemi Hyde APRN - Check CMP today as well as a GGT. continue FU with Dr Wylie. If GGT is normal, evaluate further with vitamin D level, DEXA and referral to endo as indicated. Problem Code: R74.8; Problem Code Type: ICD-10; [address], [place], [address] , [facility] 4 12:41:03 Nonulcer dyspepsia Active 2020 Problem Code: K30; Problem Code Type: ICD-Reyes; [address], [place], [address] , [facility] 4 12:41:02 Secondary polycythemia Active 2020 Problem Code: D75.1; Problem Code Type: ICD-Reyes; [address], [place], [address] , [facility] 4 12:41:03 Cough Active 202009/05/2020 - [...] Problem Code Type: ICD-10; [address], [place], [address] , [facility] 4 12:41:03 Kidney stone Active 2021 Problem Code: N20.0; Problem Code Type: ICD-10; [address], [place], [address] , [facility] 4 12:41:03 Chronic kidney disease Active 2021 Problem Code: N18.9; Problem Code Type: ICD-10; [address], [place], [address] , [facility] 4 12:41:03 Adult health examination Active 2021 Problem Code: Z00.00; Problem Code Type: ICD-10; [address], [place], [address] , [facility] 4 12:41:02 Allergic rhinitis Active 2021 Problem Code: J30.9; Problem Code Type: ICD-10; [address], [place], [address] , [facility] 4 12:41:03 Noninfectious gastroenterit is Active [address], [place], [address] , [facility] 4 12:41:02 Hyperlipidemi a Active 2012 Problem Code: E78.5; Problem Code Type: ICD-10; [address], [facility] [address] , [facility] 4 12:41:03 Liver function tests outside reference range Active 2012 Problem Code: R94.5; Problem Code Type: ICD-10; [address], [place], [address] , [facility] 4 12:41:02 Dyspnea Completed 201311/17/2022 Problem Code: R06.02; Problem Code Type: ICD-10; Not Available [facility] 3 04:05:19 Exposure to communicable disease Completed 202001/20/2021 Problem Code: Z20.9; Problem Code Type: ICD-10; Not Available [facility] 3 04:05:20 Anemia Completed 202010/17/2020 Problem Code: D64.9; Problem Code Type: ICD-10; Not Available [facility] 3 04:05:20 Neck pain Completed 202109/02/2022 Problem Code: M54.2; Problem Code Type: ICD-10; Not Available [facility] 3 04:05:20 Right upper quadrant pain Completed 201210/17/2020 Problem Code: R10.11; Problem Code Type: ICD-10; Not Available [facility] 3 04:05:20 Paresthesia Completed 202109/02/2022 Problem Code: R20.2; Problem Code Type: ICD-10; Not Available [facility] 3 04:05:21 History of injury Completed 202109/02/2022 Problem Code: Z87.828; Problem Code Type: ICD-10; Not Available [facility] 3 04:05:21 Pneumonia Completed 201310/17/2020 Problem Code: J18.9; Problem Code Type: ICD-10; Not Available [facility] 3 04:05:22 Cirrhosis of liver Completed 202004/14/2021 Problem Code: K74.60; Problem Code Type: ICD-10; [address], [place], [address] , [facility] 4 12:41:02 Chest pain Completed 201310/17/2020 Problem Code: R07.9; Problem Code Type: ICD-10; Not Available [facility] 3 04:05:23 Adhesive capsulitis of left shoulder Completed 202009/02/2022 Problem Code: M75.02; Problem Code Type: ICD-10; Not Available [facility] 3 04:05:23 Genuine stress incontinence Completed 202109/02/2022 Problem Code: N39.3; Problem Code Type: ICD-10; Not Available [facility] 3 04:05:24 Cellulitis Completed 202110/09/2021 Problem Code: L03.90; Problem Code Type: ICD-10; Not Available [facility] 3 04:05:24 Shoulder joint pain Completed 202109/02/2022 Problem Code: M25.519; Problem Code Type: ICD-10; Not Available [facility] 3 04:05:24 Generalized hyperhidrosis Completed 202101/11/2022 Problem Code: R61; Problem Code Type: ICD-10; Not Available [facility] 3 04:05:25 Itching of skin Completed 202009/02/2022 Problem Code: L29.8; Problem Code Type: ICD-10; Not Available [facility] 3 04:05:26 Malnutrition screening Completed 202209/02/2022 Problem Code: Z13.21; Problem Code Type: ICD-10; Not Available [facility] 3 04:05:27 Increased frequency of urination Completed 202010/17/2020 Problem Code: R35.0; Problem Code Type: ICD-10; Not Available [facility] 3 04:05:28 Herpes labialis Active 2023 NOEMI HYDE, SPRINKLER REPAIR TECHNICIAN [address] , [place], [address] , [facility] 12:44:48 Notes:*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 Procedures Surgical History None recorded. Imaging Results Imaging Date Name Status LastModified by Organiz ation Details LastModified Time 03/14/2023 ultrasound imaging report completed [facility] [address] , [place], [address] 03/15/2023 10:49:45 Procedure Notes None recorded. Medical Equipment None Reported. Allergies Allergen ID Allergen Name Allergen Category Reaction Reaction Severity Criticality Documentation Date Start Date Code Code System Note Provider Name and Address Organization Details Recorded Time latex environme nt,medica tion rash moderate Not available 12/31/20222020 74403 91 RxNorm Rash Aller gyNam e: 'LATE X'; Not Available [facility] 16:14:31 66303 Medicinal product containin g penicilli n and acting as antibacte rial agent (product) medicatio n rash moderate Not available 12/31/20222020 40876 05 SNOMED rash Aller gyNam e: 'PENC ILLIN '; Not Available [facility] 16:14:31 23270 Symbicort medicatio n tachycard ia mild Not available 12/31/20222020 36739 8 RxNorm heart racin g Aller gyRea ction : 'hear t racin g'; Not Available [facility] 3 16:14:31 26916 amoxicill in trihydrat e medicatio n rash moderate Not available 12/31/20222020 97606 8 RxNorm rash Not Available [facility] 3 16:14:31 04601 metronida zole medicatio n dizziness moderate Not available 12/31/20222022 6922 RxNorm dizzi ness Aller gyCod e: '3116 83'; Aller gyNam e: 'METR ONIDA ZOLE' ; Aller gyCon ceptT ype: 'RX Norm' ; Not Available [facility] 3 16:14:32 28274 metformin medicatio n Not available Not available low 03/08/2023 6809 RxNorm BOLA WARD RN [facility], [place] - [facility]. 4 08:02:44 Medications Name Sig Start Date [...] Vicks Sinex 12-Hour 0.05 % nasal spray Whipple 1 spray into both nostrils twice a [...] Not Available Not Available Not Available escitalop keatn 20 mg tablet TAKE ONE TABLET BY [...] Available Not Available [facility] Saline Nasal Whipple 0.65 % aerosol 12/06 completed Not Available [...] Arterial blood by Pulse oximetry Heart rate Respiratory rate Systolic blood pressure Diastolic blood pressure Provider Name and Address Organization Details Last Updated DateTime 4 156.21 cm 33.2 kg/m2 10666.3 2 g 97.6 [degF] 95 % 95 % 94 /min 18 /min 126 mm[Hg] 24 mm[Hg] BOLA WARD RN [facility] 08:01:59 Date Recorded Systolic blood pressure Diastolic blood pressure Provider Name and Address Organization Details Last Updated DateTime 03/08/2023 112 mm[Hg] 66 mm[Hg] NOEMI HYDE APRN [address], [place], [address], [facility] 03/08/2023 08:20:58 Date Recorded Body height Body mass index (BMI) Body weight Body temperature Oxygen saturation Oxygen saturation in Arterial blood by Pulse oximetry Heart rate Systolic blood pressure Diastolic blood pressure Provider Name and Address Organization Details Last Updated DateTime 4 156.21 cm 33.1 kg/m2 50761.8 4 g 98.5 [degF] 96 % 96 % 102 /min 100 mm[Hg] 70 mm[Hg] BITA KIMBROUGH CMA [facility] 08:50:11 Social History Question Answer Notes LastModified by Organizat ion Details LastModified Time Tobacco Smoking Status Current Every Day Smoker BOLA WARD RN [facility], [facility] 03/08/2023 08:11:06 What Was The Date Of Your Most Recent Tobacco Screening? 03/08/2023 [email or web address] Information not available 03/08/2023 How Much Tobacco Do You Smoke? 0.25 PPD Information not available 03/08/2023 Has Tobacco Cessation Counseling Been Provided? Yes [email or web address] Information not available 03/08/2023 On What Date Was Tobacco Cessation Counseling Provided? 06/21/2023 Information not available 06/21/2023 Do You Or Have You Ever Used Any Other Forms Of Tobacco Or Nicotine? No [email or web address] Information not available 03/08/2023 Sex: Female Functional [...] Hep A-Hep B 07/03/2013 completed Not Available [facility] 12/31/2022 04:28:23 Hep A-Hep B 08/20/2013 completed Not Available [facility] 12/31/2022 04:28:23 Hep A-Hep B 01/08/2014 completed Not Available [facility] 12/31/2022 04:28:23 Tdap 07/23/2010 completed Not Available [facility] 04:28:25 Tdap 10/17/2020 completed Not Available [facility] 04:28:25 Pneumococcal conjugate PCV 13 07/22/2016 completed Not Available [facility] 12/31/2022 04:28:25 Pneumococcal conjugate PCV 13 01/04/2017 completed Not Available [facility] 12/31/2022 04:28:26 Td(adult) unspecified formulation 02/01/2005 completed Not Available [facility] 12/31/2022 04:28:26 Influenza, split virus, quadrivalent, PF 12/10/2020 completed Not Available [facility] 12/31/2022 04:28:27 Influenza, split virus, quadrivalent, PF 01/22/2022 completed Not Available [facility] 12/31/2022 04:28:27 zoster recombinant 04/20/2019 completed Not Available [facility] 12/31/2022 04:28:28 COVID-19, mRNA, LNP-S, PF, 100 mcg/0.5mL dose or 50 mcg/0.25mL dose 06/22/2020 completed Not Available [facility] 12/31/2022 04:28:28 COVID-19, mRNA, LNP-S, PF, 100 mcg/0.5mL dose or 50 mcg/0.25mL dose 07/20/2020 completed Not Available [facility] 12/31/2022 04:28:29 COVID-19, mRNA, LNP-S, PF, 30 mcg/0.3 mL dose, macy-sucrose 03/27/2021 completed Not Available [facility] 12/31/2022 04:28:29 COVID-19, mRNA, LNP-S, PF, 30 mcg/0.3 mL dose, macy-sucrose 10/09/2021 completed Not Available [facility] 12/31/2022 04:28:30 pneumococcal polysaccharide PPV23 11/13/2014 completed Not Available [facility] 2022 04:28:30 pneumococcal polysaccharide PPV23 02/08/2008 completed Not Available [facility] 2022 04:28:30 influenza, unspecified formulation 11/13/2014 completed Not Available [facility] 12/31/2022 04:28:31 influenza, unspecified formulation 11/26/2013 completed Not Available [facility] 12/31/2022 04:28:31 influenza, unspecified formulation 11/27/2019 completed Not Available [facility] 12/31/2022 04:28:31 influenza, unspecified formulation 11/29/2017 completed Not Available [facility] 12/31/2022 04:28:31 influenza, unspecified formulation 11/30/2016 completed Not Available [facility] 12/31/2022 04:28:31 influenza, unspecified formulation 12/08/2015 completed Not Available [facility] 12/31/2022 04:28:32 influenza, unspecified formulation 12/13/2018 completed Not Available [facility] 12/31/2022 04:28:32 Influenza, split virus, quadrivalent, PF 12/06/2022 completed Not Available [facility] 03/04/2023 05:31:40 Past Encounters Encounter ID Performer Location Encounter Start Date Encounter Closed Date Diagnosis/Indication Diagnosis SNOMED-CT Code [id number] NOEMI [address] [address] 03/08/2023 07:53:41 03/08/2023 08:40:19 Cirrhosis of liver Disorder of lung 1 Chronic ri ght-sided heart failure 23698988 Headache 49991261 Type 2 wes betes mellitus without complication 148388905 Major depr ession, single episode 09527065 Hypothyroidism 06157650 Essential hypertension 54905003 Obstructiv e sleep apnea syndrome 20527093 Benign da plasm of colon 94413654 Herpes labialis 2569921 [id number] NOEMI HY[address] [address] 06/21/2023 08:39:04 06/21/2023 09:33:53 Hypothyroidism 40389210 Obstructiv e sleep apnea syndrome 85133987 Cirrhosis of liver 007 Disorder of lung 1 Benign da plasm of colon 70580155 Essential hypertension 90264203 Major depr ession, single episode 68430037 Type 2 wes betes mellitus without complication 947893820 Chronic ri ght-sided heart failure 22046041 Headache 36564336 Herpes labialis 4749684 Health Concerns Section Related Observation LastModified by Organization Detai ls LastModified Time None Recorded Concern Status LastModified by Organization Details LastModified Time None Recorded Advance Directives Directive None Recorded Payers Encounter Date Sequence Insurance Name Policy Number Policy Holt Covered Member ID Holt Member ID Guarantor Name 03/08/2023 1 [place] [employer] Teresita Fernández [id number] Teresita Fernández 03/08/2023 2 [facility] (MEDICAID) Teresita Fernández [id number] Teresita Fernández 06/21/2023 2 [facility] (MEDICAID) Teresita Fernández [id number] Teresita Fernández Notes Date Note Type Note Provider Name and Address Organization Details Recorded Time 03/08/2023 text/html HPI Notes: Is he re for follow-up: -Hypothyroidism. Without medication. -BHARATI. Fatigue. RLS. Nocturnal leg cramps. Has CPAP. Takes magnesium supplement, trazodone. -Cirrhosis. Elevated LFTs. Elevated alk phos, GGT. Dyspepsia. Hiatal hernia. Watermelon stomach. Takes Prilosec 20mg. Sees gastro routinely. -Restrictive lung disease. Cough. Sinus congestion. Tobacco abuse. Takes singulair, Claritin, flonase. Ventolin inhaler PRN. -Tubular adenoma. CRC. Next colo due 2023. -HTN. Takes aldactone (50mg), metoprolol succ ER (50mg), atorvastatin (20mg) -Depression. Anxiety. Insomnia. Takes melatonin QHS, NAC, L methyl folate, magnesium. Last visit her Lexapro (at 20mg) was increased and was started on trazodone (50mg). Ativan (0.5mg), no more than 10/ month. -DM. Obesity. Takes ozempic 2mg weekly, glimepiride 4mg BID, farxiga (increased last visit), atorvastatin 20mg daily, ASA. Not on ACEI/ARB. Does plexus for weight management. -Heart failure. Constrict pericarditis. Lymphedema. Takes Lasix, aldactone, metoprolol, atorvastatin. Sees cardiology routinely. Massage fro lymphedema. -Headaches. See ROS. -Cold sores. Oral HSV. valacylovir start w/ sx onset.; Had 1 in the last few months. NOEMI HYDE, SPRINKLER REPAIR TECHNICIAN [address], [place], [address], [facility]. 03/08/2023 09:48:39 06/21/2023 text/html HPI Notes: Is he re [...] active, walking around her house outside and blocker hand. -Heart failure. Constrict pericarditis. Lymphedema. Takes Lasix, [...] last time seen in office. NOEMI HYDE, SPRINKLER REPAIR TECHNICIAN [address], [place], [address], [facility] 06/21/2023 10:31:14 OBGyn Episode No OBEpisode recorded.
--- OUTSIDE RECORDS SUMMARY | 2023-09-06 01:37 | XMS_ITS | Encounter Summary ---
Author Organization [facility] Address [facility] [place] [address] Care Team Providers Care Estate Planner Name Role Phone Noemi Sharma JANNA Primary Care Provider [phone] Encounter Details Date Type Department Care Team (Late Contact Info) Description 12/23/2022 Orders [place] [address] Karen Farnsworth MD [facility] [place] [address] Hepatic fibrosis; Fatty liver Social History Tobacco Use Types Packs/Day Years [...] 11:00 AM EDT Office [place] [address] Mague Johnson MD [facility] [place] [address] documented as of this encounter Visit Diagnoses Diagnosis Hepatic fibrosis Cirrhosis of liver without mention of alcohol Fatty liver Other chronic nonalcoholic liver disease documented in this encounter Care Teams Estate Planner Relationship Specialty Start Date End Date Noemi Sharma APRN [address] [place] [address] PCP - General Family Medicine 07/28/20 documented as of this encounter
--- OUTSIDE RECORDS SUMMARY | 2023-09-06 01:37 | XMS_ITS | Encounter Summary ---
Author Organization [facility] [place] [address] Care Team Providers Care Glue Size Machine Operator Name Role Phone Noemi Sharma JANNA Primary Care Provider [phone] Reason for Visit * Reason Comments Medication Refill Encounter Details Date Type Department Care Team (Late st Contact Info) Description 01/19/2023 Refill Cardiology at [address] [address] Homer Dobbs MD [facility] [place] [address] Medication Refill Social History Tobacco Use Types [...] 11:00 AM EDT Office [place] [address] Mague Johnson MD [facility] [place] [address] documented as of this encounter Visit Diagnoses Diagnosis Chronic right-sided heart failure- Primary Congestive heart failure, unspecified Fluid retention Other fluid overload documented in this encounter Care Teams Glue Size Machine Operator Relationship Specialty Start Date End Date Noemi Sharma APRN [address] [place] [address] PCP - General Family Medicine 07/28/20 documented as of this encounter
--- OUTSIDE RECORDS SUMMARY | 2023-09-06 01:37 | XMS_ITS | Encounter Summary ---
Author Organization [facility] [place] [address] Care Team Providers Care Washer Machine Name Role Phone Noemi Sharma JANNA Primary Care Provider [phone] Reason for Visit * Reason Comments Medication Refill Metoprolol Encounter Details Date Type Department Care Team (Late st Contact Info) Description 02/01/2023 Refill Cardiology at [address] [address] Homer Dobbs MD [facility] [place] [address] Medication Refill (Metoprolol) Social History Tobacco Use Types Packs/Day Years [...] encounter Miscellaneous Notes * Telephone Encounter - Naty Santos RN - 02/01/2023 10:23 AM EST NUHA 02/03/22 TeleHealth visit w/ Dr. Dobbs Assessement and Plan: 56 year old obese female with htn, hlp, dm, s/p pericardial stripping. 1. hlp -- continue statin 2. Continue lasix and spironolactone for sob, check bmp 3. Hx of pericardial stripping 4. F/u 1 years NOV Recall due 12/04/22 Will forward to scheduling to set up appt. Last RF 12/04/21 #90 3RF documented in this encounter Plan of Treatment Upcoming Encounters Date Type Department Care Team (Late st Contact Info) Description 09/14/2023 11:00 AM EDT Office [place] [address] Mague Johnson MD [facility] [place] [address] documented as of this encounter Visit Diagnoses Diagnosis Tachycardia, unspecified documented in this encounter Care Teams Washer Machine Relationship Specialty Start Date End Date Noemi Sharma, CIGARETTE EXAMINER [address] [place] [address] PCP - General Family Medicine 07/28/20 documented as of this encounter
--- OUTSIDE RECORDS SUMMARY | 2023-09-06 01:37 | XMS_ITS | Encounter Summary ---
Author Organization [facility] Address [facility] [place] [address] Care Team Providers Care Vegetable Sorter Name Role Phone Noemi Sharma [employer] REPRESENTATIVE Primary Care Provider [phone] Encounter Details Date Type Department Care Team (Late st Contact Info) Description 05/13/2022 External Results [place] [address] Karen Farnsworth MD [facility] [place] [address] Social History Tobacco Use Types Packs/Day Years [...] 11:00 AM EDT Office [place] [address] Mague Johnson MD [facility] [place] [address] documented as of this encounter Procedures Procedure Name Priority Date/Time Associated Diagnosis Comments EXTERNAL LAB CBC CMP THYROID RESULTS PANEL Routine 03/08/2022 documented in this encounter Results * CBC / CMP / Thyroid External Results (03/08/2022) Platelets 378 Albumin 3.6 Historical Provider EXTERNAL LAB SALINAS LANDIS documented in this encounter Visit Diagnoses Not on filedocumented in this encounter Care Teams Vegetable Sorter Relationship Specialty Start Date End Date Noemi Sharma APRN [address] [place] [address] PCP - General Family Medicine 07/28/20 documented as of this encounter
--- OUTSIDE RECORDS SUMMARY | 2023-09-06 01:37 | XMS_ITS | Encounter Summary ---
Author Organization [facility] Address [facility] [place] [address] Care Team Providers Care Motorcycle Engine Assembler Name Role Phone Noemi Sharma APRN Primary Care Provider [phone] Reason for Visit * Diagnostic Test (Routine) - Closed Specialty Diagnoses / Procedures Referred By Víctor thomas Referred To Contact Sleep Center Diagnoses BHARATI (obstructive sleep apnea) Procedures Sleep Study with Pap Titration Sleep Study with Pap Titration Veronica Rivera APRN [facility] [place] [address] [facility] Sleep Medicine [address] [place] [address] Referral ID Status Reason Start Date Expiration Date V isits Requested Visits Authorized [id number] Closed Specialty Service Requested 11/02/2021 11/02/2022 1 1 Encounter Details Date Type Department Care Team (Late st Contact Info) Description 06/01/2022 7:30 PM EDT Procedure visit Sleep Center at [facility] [address] [place] [address] Bhumika Nickerson MD [facility] [place] [address] BHARATI (obstructive sleep apnea) Social History Tobacco Use Types Packs/Day Years [...] Sign Reading Time Taken Comments Blood Pressure 110/70 06/01/2022 8:00 PM EDT Pulse 80 06/01/2022 8:00 PM EDT Temperature - - Respiratory Rate 12 06/01/2022 8:00 PM EDT Oxygen Saturation 98% 06/01/2022 8:00 PM EDT Inhaled Oxygen Concentration - - Weight 86.6 kg (191 lb) 06/01/2022 8:00 PM EDT Height 157.5 cm (5' 2) 06/01/2022 8:00 PM EDT Body Mass Index 34.93 06/01/2022 8:00 PM EDT documented in this encounter Progress Notes * Bhumika Nickerson MD - 06/01/2022 7:30 PM EDT Images from the original note were not included. REPORT OF POSITIVE PRESSURE TITRATION History Of Present Illness: Teresita Fernández is a 56 y.o. female who presents for a polysomnogram. Polysomnography: The patient's sleep was evaluated for one night at the [facility]. Sleep was monitored in accordance with recommended AASM guidelines. The recording also included oral/nasal airflow, chest and abdominal respiratory effort, nasal pressure, single channel EKG, intercostalEMG, bilateral tibialis EMG, and oxygen saturation (by pulse oximeter). Type of Positive Pressure Utilized: CPAP Comment: - Sleep/EEG: Sleep efficiency: mildly reduced at 80.1% Sleep architecture: relatively increased N3 otherwise normal REM Observed: yes; latency prolonged; REM percentage reduced at 10.2% Supine position observed: yes (11.3%) - Respiratory: CPAP was titrated from a pressure of 7cm to 8cm. Obstructive events generally improved with the application of CPAP, although there were mild scattered hypopneas seen at the observed pressures. No central sleep apnea seen. No evidence of hypoxia. Mean SpO2: 94% Minimum SpO2: 88% - EKG: Normal sinus rhythm without significant ectopy. - EMG: Unremarkable Assessment: Teresita Fernández is a 56 y.o. female whose polysomnogram demonstrates improved control ofobstructive sleep apnea with the application of CPAP. Observed with CPAP at 7cm and 8cm with scattered, mild residual hypopneas. No central sleep apnea seen. No evidence of hypoxia. Study results and recommendations relayed via [facility]. Recommendations: 1. AutoPAP set at a pressure of 8-13 cm with a N20 nasal mask; chin strap added (patient brought her N20 from home) 2. Follow up with Veronica Rivera APRN [facility] REPORT of TITRATION Polysomnography Patient Name: Teresita Fernández Study Date: 06/01/2022 Age & Sex: 56 y.o. Female Height: 5'2 Date of : 1965 Weight: 191 lbs BMI: 34.9 Referring Provider: Recording Technologist: TAMMIE MISHRA Scoring Technologist: TAMMIE VELA Sleep Fellow: Sleep Specialist: Scoring Technologist Comments: ECG: Ectopy: Description of Study: Diagnostic polysomnography was performed utilizing frontal, central & occipital EEG, EOG, submentalis EMG, oronasal thermocouple, nasal pressure, ECG, thoracic and abdominalinductance plethysmography, right and left anterior tibialis EMG, snore sensor, and pulse oximetry according to AASM established guidelines. Study Details & Sleep Architecture Diagnostic Start Time (Lights Off): 22:03:33 Total Recording Time: 490.5 min Diagnostic End Time (Lights On): 06:14:03 Total Sleep Time (minutes): 393.0 Total Num. of Stage Shifts: 84 Total Sleep Time (hrs:min): 6:33.0 Total Num. of Awakenings: 23 Sleep Onset Latency: 33.0 min Total Num. of Trans. to N1: 22 Sleep Efficiency: 80.1% Total Num. of REM Periods: 2 Stage Results: Time (minutes) %TST Latency (minutes) WASO: 64.5 - - N1: 13.0 3.3 0.0 N2: 220.5 56.1 0.5 N3: 119.5 30.4 9.0 REM: 40.0 10.2 281.0 250.0 (minus wake) Arousal Counts: NREM REM Total Spontaneous: 83 (14.1/hr) 8 (12.0/hr) 91 (13.9/hr) Sum of All Arousals: 129 (21.9/hr) 14 (21.0/hr) 143 (21.8/hr) Spontaneous arousals include only EEG arousals not associated with a respiratory event or PLM. Body Position: Supine Non-Supine Non-REM: 21.0 min 332.0 min REM: 23.5 min 16.5 min Total Sleep: 44.5 min (11.3%) 348.5 min (88.7%) Respiratory Events Apneas Obstructive Mixed Central Total Apneas Total Count: 0 0 0 0 Mean Duration (sec): 0 0 0 0 Longest Duration (sec): 0 0 0 - Index (REM/NREM): 0.0 / 0.0 0.0 / 0.0 0.0 / 0.0 0.0/ 0.0 Index (Sup./Non-Sup.): 0.0 / 0.0 0.0 / 0.0 0.0 / 0.0 0.0/ 0.0 Index (Total): 0.0 0.0 0.0 0.0 Hypopneas & RERAs Hypopnea* CMS Hypopnea AASM Central Hypopneas Hypopneas All RERA Total Count: 3 55 0 55 0 Mean Duration (sec): 19.9 22.2 - 22 0 Longest Duration (sec): 21.4 44.9 0.0 45 0 Index (REM/NREM): 0.0/0.5 9.0/8.3 0.0/0.0 9.0/ 8.3 0.0 0.0 Index (Sup./Non-Sup.): 0.0 / 0.5 17.5/ 7.2 0/0 17.5/ 7.2 0.0 / 0.0 Index (Total): 0.5 8.4 0.0 8.4 0.0 *CMS-defined hypopneas include only hypopneas with a >=4% oxygen desaturation. Includes hypopneas with an arousal or with a 3%-4% desaturation. Periodic Breathing Total Sleep Time Time (minutes) 0.0 Time (%Sleep Time) 0.0 AHI: Includes all apneas & all hypopneas associated with an arousal or a ? 3% desaturation. Supine Non-Sup. REM NREM Total Count: 13 42 6 49 55 Index (events/hr): 17.5 7.2 9.0 8.3 AHI = 8.4 CMS AHI: Includes all apneas & only hypopneas associated with a ? 4% desaturation. Supine Non-Sup. REM NREM Total Count: 0 3 0 3 3 Index (events/hr): 0.0 0.5 0.0 0.5 CMS = 0.5 Obstructive AHI: Includes obstructive & mixed apneas as well as all hypopneas. Excludes centralapneas and RERAs. Supine Non-Sup. REM NREM Total Count: 13 42 6 49 55 Index (events/hr): 17.5 7.2 9.0 8.3 OAHI = 8.4 RDI: Includes all apneas, all hypopneas, all RERAs, and all ???Unsure??? events. Supine Non-Sup. REM NREM Total Count: 13 42 6.0 48.8 55 Index (events/hr): 17.5 7.2 9.0 8.3 RDI = 8.4 Oxygen Saturation Details (Overall) SpO2 Awake NREM REM All Sleep ZEESHAN Report Sleep Mean: 95% 94% 92% 94% 3% ZEESHAN 2.6 1.7 Minimum: - 90% 88% 88% 4% ZEESHAN 1.2 0.6 SpO2 Awake (minutes) NREM (minutes) REM (minutes) All Sleep (minutes) ?90% 0.5 0.0 8.9 8.9 ?89% 0.2 0.0 2.2 2.2 ?88% 0.0 0.0 0.0 0.0 90-99% 82.6 353.0 31.1 384.1 80-89.9% 0.2 0.0 2.2 2.2 79-79.9% 0.0 0.0 0.0 0.0 60-69.9% 0.0 0.0 0.0 0.0 50-59.9% 0.0 0.0 0.0 0.0 ?50% 0.0 0.0 0.0 0.0 Cardiac Details Heart Rate (bpm) Total Study NREM REM All Sleep Minimum - 63 74 63 Maximum 111 111 95 111 Mean - 85 85 85 Limb Movement Details Periodic Limb Movements Total PLMs (and Index) PLMs w/ Arousals (and Index) Wake (after ???Lights Off???): 0 (0.0/hr) 0 (0.0/hr) NREM: 16 (2.7/hr) 2 (0.3/hr) REM: 3 (4.5/hr) 0 (0.0/hr) Total Sleep: 19 (2.9/hr) 2 (0.3/hr) Pressure Analysis Time (hh:mm:ss) IP/EP/O2 TST Supine Non-Sup. REM Non-REM REM Sup. 08/27/0 88/0 4:07:19.0 2:25:41.0 0:18:19.0 0:26:11.0 3:49:0.0 1:59:30.0 0:00:0.0 0:40:0.0 4:07:19.0 1:45:41.0 0:00:0.0 0:23:30.0 Respiratory Event Counts IP/EP/O2 Obstr. Ap. Mixed Ap. Central Ap. Hypopneas* RERAs 08/27/0 88/0 0 0 0 0 0 0 36 19 0 0 *Includes all types of hypopneas: those associated with arousals or ?3% desaturations. Respiratory Indices (events per hour) IP/EP/O2 OAI DALTON LANA HI* RDI 08/27/0 88/0 0.0 0.0 0.0 0.0 0.0 0.0 8.7 7.8 8.7 7.8 *Includes all types of hypopneas: those associated with arousals or ?3% desaturations. Respiratory Indices (events per hour) IP/EP/O2 AHI Supine Non-Sup. REM Non-REM 08/27/0 88/0 8.7 7.8 22.9 13.7 7.6 6.5 0 0 0 0 0 0 0 0 0 0 0 0 0 0 0 0 0 0 0 0 0 0 0 0.0 9.0 8.7 7.4 *Includes all types of hypopneas: those associated with arousals or ?3% desaturations. Oxygen Saturations IP/EP/O2 Minimum Mean 7/7/0 8/8/0 90 88 94 94 Graphs CPAP/Bi-Level PLMs Body Position documented in this encounter Plan of Treatment Upcoming Encounters Date Type Department Care Team (Late st Contact Info) Description 09/14/2023 11:00 AM EDT Office [place] [address] Mague Johnson MD [facility] DR [place] [address] documented as of this encounter Visit Diagnoses Diagnosis BHARATI (obstructive sleep apnea) Obstructive sleep apnea (adult) (pediatric) documented in this encounter Care Teams Motorcycle Engine Assembler Relationship Specialty Start Date End Date Noemi Sharma APRN [address] [place] [address] PCP - General Family Medicine 07/28/20 documented as of this encounter
--- OUTSIDE RECORDS SUMMARY | 2023-09-06 01:38 | XMS_ITS | Encounter Summary ---
Author Organization [facility] Address [facility] [place] [address] Care Team Providers Care Aluminum Sheet Cutter Name Role Phone Noemi Sharma JANNA Primary Care Provider [phone] Encounter Details Date Type Department Care Team (Latest Contact Info) Description 09/19/2020 11:00 AM EDT TH Visit (TeleHealth) Hematology [place] [address] Apurva Julio MD [facility] HEMATOLOGY/[place] [address] Erythrocytosis; Smoking; Sleep apnea, unspecified type Social History Tobacco Use Types Packs/Day Years [...] PM EDT documented as of this encounter Progress Notes * Apurva Paredes MD - 09/19/2020 11:00 AM EDT Images from the original note were not included. HEMATOLOGY TELEHEALTH FOLLOW-UP VISIT NOTE Patient identity was confirmed and patient verbally consented to this telephone visit and understands that this visit may be billed, similar to a clinic office visit. Patient understands that a telephone visit prevents the ability to complete a full evaluation which normally includes vitals and physical exam. Patient understands if there are concerns and he/she may be asked to have an office visit. DATE OF VISIT : 09/30/20 REASON FOR VISIT: F/up to review labs HISTORY OF PRESENT ILLNESS Teresita Fernández is a 55 y.o. 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 Presentation: She was noted to have mild leukocytosis, erythrocytosis and thrombocytosis on her routine labs for which she is referred here. Her PCP checked for JAK2 V617F mutation which was negative. Labs from referring MD: ??? CBC : 07/17/20 : WBC: 10.69, Hgb: 16.1g/dL, MCV: 82, Plt: 426k ? ? Hgb : 16.3 (05/06/20 <= 14/4g/dL (11/06/19) ??? 08/01/20 : JAK2 negative for V617F mutation. Relevant PMHx/ risk factors: ?? Chronic diastolic heart failure ?? Smokes 1/2ppd ?? BHARATI INTERIM Hx: Teresita Fernández reports no new issues since last seen PROBLEM LIST Patient Active Problem List Diagnosis ??? BHARATI (obstructive sleep apnea) ??? Depression ??? Anxiety disorder ??? Diabetes mellitus ??? Obesity, Class III, BMI 40-49.9 (morbid obesity) Overview Note: BMI=43 ??? Tricuspid valve insufficiency ??? Pain in left arm ??? Chronic diastolic congestive heart failure Overview Note: TTE 05/12/2016: SUMMARY: ?? 1. Patient is [...] There is no hemodynamically significant valve disease. ? SOB (shortness of breath) Overview Note: May be multifactorial Restrictive lung disease Obesity H/o constrictive pericarditis ??? Chest pain Overview Note: Right and Left Cardiac Catheterization 03/19/2013: [facility] [employer] [facility] 10/14/2017: FINDINGS: No fixed or reversible perfusion defects are present. Functional analysis: Myocardial function: There is normal wall thickening and wall motion. Left ventricular ejection fraction: 78 % (normal greater than than 50%). No significant incidental CT findings. IMPRESSION No ischemia or scar. Left ventricular function is normal. ??? Fever ??? HCAP (healthcare-associated pneumonia) ??? Chronic right-sided heart failure ??? Cardiac cirrhosis ??? h/o Constrictive pericarditis Overview Note: S/p Pericardial stripping [place] [facility] 05-04-13 ??? Ascites ??? Abdominal pain, RUQ (right upper quadrant) ??? Abnormal LFTs (liver function tests) ??? Hyperlipidemia PAST SURGICAL Hx: Past Surgical History: Procedure Laterality Date ??? CHOLECYSTECTOMY ??? COLONOSCOPY ??? PRO LAP, CHOLECYSTECTOMY/GRAPH 02/19/2013 LAPAROSCOPIC CHOLECYSTECTOMY WITH CHOLANGIOGRAM performed by Octaviano Torrez MD at [facility] MAIN OR ??? PRO UNLISTED LAPAROSCOPIC PX LVR 02/19/2013 LAPAROSCOPIC LIVER BIOPSY performed by Octaviano Torrez MD at [facility] MAIN OR ??? UPPER GASTROINTESTINAL ENDOSCOPY MEDICATIONS ??? semaglutide (Ozempic) 0.25 mg or 0.5 mg(2 mg/1.5 mL) Pen Injector ??? insulin needles, disposable, 32 gauge x 32 Needle ??? glimepiride (AMARYL) 4 mg Tablet ??? escitalopram (Lexapro) 10 mg Tablet ??? novoLIN 70/30 Suspension ??? metoprolol succinate XL (Toprol-XL) 50 mg Tablet Sustained Release 24 hr ??? furosemide (Lasix) 20 mg Tablet ??? spironolactone (ALDACTONE) 50 mg Tablet ??? fluconazole (Diflucan) 150 mg Tablet ??? BD Veo Insulin Syringe UF 0.3 mL 31 gauge x Syringe ??? valACYclovir (VALTREX) 1 gram Tablet ??? insulin NPH hum/reg insulin hm (NOVOLIN 70/30 U-100 INSULIN SUBQ) ??? estradiol (ESTRACE) 0.01 % (0.1 mg/gram) Cream ??? HYDROmorphone (DILAUDID) 2 mg Tablet ??? albuterol 90 mcg/actuation HFA Aerosol Inhaler ??? omeprazole (PRILOSEC) 40 mg Capsule, Delayed Release(E.C.) ??? escitalopram (LEXAPRO) 20 mg Tablet ??? polyethylene glycol (MIRALAX) 17 gram Powder in Packet ??? LORazepam (ATIVAN) 0.5 mg Tablet ??? traZODone (DESYREL) 100 mg tablet ALLERGIES/ADR Allergies Allergen Reactions ??? Latex Rash ??? Metformin Diarrhea ??? Scopolamine Itching and Rash Itching erythematous rash resolved with scop patch removal. ??? Adhesive Bandage Localized Reaction ??? Amoxicillin Trihydrate Rash ??? Jardiance [Empagliflozin] ??? Penicillins Rash ??? Sulfa (Sulfonamide Antibiotics) Rash ??? Varicella-Zoster Virus Glycoprotein E, Recombinant Other reaction(s): Local reaction- redness and swelling PERSONAL and SOCIAL HISTORY ?? Lives in: [place], [place] ([place] from [facility] is the closest, ?? Work history: Disabled. ?? ETOH: No ?? Smokin/2 ppd ?? HIPPA Contact Permission: OK to leave voice mail on phone. FAMILY HISTORY Family History Problem Relation Age of Onset ??? Type 1 Diabetes Other ??? Autoimmune Disorder Other ??? Heart Disease Mother ??? Cerebrovascular Accident Mother 64 ??? Diabetes Mother ??? Diabetes Sister ??? Arthritis Sister ??? Arthritis Brother ??? Diabetes Brother ??? Arthritis Brother ??? Diabetes Brother ??? Diabetes Brother PHYSICAL EXAM VITAL SIGNS: There were no vitals taken for this visit. Exam not performed as this is a telehealth visit LABORATORY Res Ref. Range 09/03/2020 14:25 WBC Latest Ref Range: 4.0 - 9.5 x10(3)/mcL 10.8 (H) RBC Latest Ref Range: 4.00 - 5.21 x10(6)/mcL 5.67 (H) Hemoglobin Latest Ref Range: 11.7 - 15.5 gm/dL 15.6 (H) Hematocrit Latest Ref Range: 35.7 - 45.8 % 46.9 (H) MCV Latest Ref Range: 82.6 - 94.4 fL 82.7 MCH Latest Ref Range: 27.1 - 32.0 pg 27.5 MCHC Latest Ref Range: 31.7 - 35.0 gm/dL 33.3 RDWSD Latest Ref Range: 37.0 - 46.0 fL 48.6 (H) RDWCV Latest Ref Range: 11.5 - 14.1 % 16.5 (H) Platelets Latest Ref Range: 145 - 357 x10(3)/mcL 347 MPV Latest Ref Range: 7.6 - 12.9 fL 10.0 nRBC % Auto Latest Units: % 0.0 nRBC Abs Auto Latest Ref Range: 0.000 - 0.000 x10(3)/mcL 0.000 Neutr Abs (ANC) Latest Ref Range: 1.70 - 6.10 x10(3)/mcL 6.66 (H) Neutrophils % Latest Units: % 61.6 Immature Gran % Latest Units: % 0.40 Lymphocytes % Latest Units: % 27.9 Monocytes % Latest Units: % 8.2 Eosinophils % Latest Units: % 1.4 Basophils % Latest Units: % 0.5 Ashley Gran Abs Latest Ref Range: 0.00 - 0.04 x10(3)/mcL 0.04 Lymphocytes Abs Latest Ref Range: 0.9 - 3.2 x10(3)/mcL 3.0 Monocyte Abs Latest Ref Range: 0.3 - 0.9 x10(3)/mcL 0.9 Eosinophils Abs Latest Ref Range: 0.0 - 0.4 x10(3)/mcL 0.2 Basophils Abs Latest Ref Range: 0.0 - 0.1 x10(3)/mcL 0.0 Erythropoietin Latest Ref Range: 2.6 - 18.5 mIU/mL 6.1 JAK2 Report Unknown JAK2 V617F Somati... MYELOID SEQ PANEL Unknown Rpt No gene variants diagnostic for myeloproliferative neoplasm are detected in JAK2 (p.V617F and exon 12), CALR, or MPL; or in any of the other genes sequenced by this panel. RADIOLOGY - None ASSESSMENT & PLANS Teresita Fernández is a 55 y.o. 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 I reviewed all the labs from her last visit. CBC here shows Hgb of 15.6g/dL, which is better than her prior levels. Erythropoietin level is normal at 6.1. Myeloid gene panel is negative for JAK2 V617F, exon 12, CALR, MPL gene mutations. So, she does not have polycythemia vera. Her erythrocytosis is reactive secondary to her smoking, untreated sleep apnea, her underlying cardiac and pulmonary issues etc.. I discussed all these results, my impression with her. As that she does not have any primary hematological disorder, she does not need any further follow-up with hematology/me. She understands the importance of quitting smoking , long- term complications of untreated sleep apnea. Patient agreed to make appointment with sleep medicine for follow-up. I reviewed my impression and recommendations with Teresita Fernández and answered all the questions.. Pt agreed with the plan. Thank you Noemi Klein for asking us to see this very pleasant patient. Please don't hesitate to contact me if you'd like to discuss this patient's situation further. Total time spent ~ 22mts including time to review labs, document care etc.. Apurva Paredes MD [facility] CC: JANNA Ramirez Kathryn H documented in this encounter Plan of Treatment Upcoming Encounters Date Type Department Care Team (Late st Contact Info) Description 09/14/2023 11:00 AM EDT Office [place] [id number] Mague Johnson MD [facility] [place] [address] documented as of this encounter Visit Diagnoses Diagnosis Erythrocytosis Polycythemia, secondary Smoking Tobacco use disorder Sleep apnea, unspecified type documented in this encounter Care Teams Aluminum Sheet Cutter Relationship Specialty Start Date End Date Noemi Sharma APRN [address] [place] [address] PCP - General Family Medicine 07/28/20 documented as of this encounter
--- OUTSIDE RECORDS SUMMARY | 2023-09-06 01:38 | XMS_ITS | Encounter Summary ---
Author Organization [facility] [place] [address] Care Team Providers Care Denitrator Operator Name Role Phone Bernadette Childs MD Primary Care Provider [phone] Reason for Visit * Reason Comments Follow-up Encounter Details Date Type Department Care Team (Late st Contact Info) Description 12/25/2018 3:00 PM EST Office Visit Obstetrics [place] [address] Maricarmen Rodriguez MD [facility] [address] OBSTETRICS [place] [address] PCB (post coital bleeding) Social History Tobacco Use Types Packs/Day Years Used Date Smoking Tobacco: Former Cigarettes 0.3 15 1 - 02/20/1996 Smokeless Tobacco: Never Alcohol Use Standard [...] Sign Reading Time Taken Comments Blood Pressure 114/74 12/25/2018 2:30 PM EST Pulse 90 12/25/2018 2:30 PM EST Temperature 36.9 ??C (98.5 ??F) 12/25/2018 2:30 PM ES T Respiratory Rate - - Oxygen Saturation 97% 12/25/2018 2:30 PM EST Inhaled Oxygen Concentration - - Weight 97 kg (213 lb 14.4 oz) 12/25/2018 2:30 PM EST Height - - Body Mass Index 38.75 06/07/2018 3:49 PM EDT documented in this encounter Progress Notes * Maricarmen Rodriguez MD - 12/25/2018 3:00 PM EST Ms. Fernández is a 53 y.o. here for follow up of post menopausal bleeding, and a vulvar lesion. I felt she might have lichen planus after her exam last time. Cervical biopsy was negative for lichenoid change. In talking to several colleagues, one suggested treatment for cervicitis. No one had ever seen just erythema over the exocervix. She took the doxycycline, got a yeast infection. Can't really say it made a difference. She had an ultrasound today, endometrial stripe was 3 mm. No abnormalities seen. Both ovaries visualized. Outpatient Medications Marked as Taking for the 12/25/18 encounter (Office Visit) with Maricarmen Rodriguez MD Medication Sig Dispense Refill ??? metoprolol succinate (TOPROL-XL) 25 mg Tablet Sustained Release 24 hr TAKE ONE TABLET BY MOUTH EVERY DAY 90 tablet 3 ??? insulin NPH hum/reg insulin hm (NOVOLIN 70/30 U-100 INSULIN SUBQ) Inject subcutaneously 2 timesdaily. ??? gabapentin (NEURONTIN) 800 mg Tablet Take 800 mg by mouth 3 times daily. ??? PEN NEEDLE 31 gauge x 3/16 Needle use once daily FOR LANTUS PEN 1 ??? HYDROmorphone (DILAUDID) 2 mg Tablet Take 2 mg by mouth every 3 hours as needed for Pain. ??? albuterol 90 mcg/actuation HFA Aerosol Inhaler Inhale 2 puffs into the lungs 4 times daily as needed for Wheezing (VENTOLIN). Use with spacer ??? omeprazole (PRILOSEC) 40 mg Capsule, Delayed Release(E.C.) Take 40 mg by mouth daily. ??? escitalopram (LEXAPRO) 20 mg Tablet Take 20 mg by mouth daily. ??? spironolactone (ALDACTONE) 50 mg Tablet Take 1 tablet by mouth daily. 90 tablet 3 ??? polyethylene glycol (MIRALAX) 17 gram Powder in Packet Take 17 g by mouth as needed. ??? furosemide (LASIX) 20 mg Tablet Take 1 tablet by mouth daily. 90 tablet 3 ??? LORazepam (ATIVAN) 0.5 mg Tablet Take 0.5 mg by mouth every 6 hours as needed. Patient Active Problem List Diagnosis Code ??? Abdominal pain, RUQ (right upper quadrant) R10.11 ??? Abnormal LFTs (liver function tests) R94.5 ??? Ascites R18.8 ??? 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 Chronic right-sided heart failure I50.812 ??? Cardiac cirrhosis K76.1 ??? SOB (shortness of breath) R06.02 ??? Chest pain R07.9 ??? Fever R50.9 ??? HCAP (healthcare-associated pneumonia) J18.9 ??? Chronic diastolic congestive heart failure I50.32 ??? Pain in left arm M25.512 ??? Obesity, Class III, BMI 40-49.9 (morbid obesity) E66.01 ??? Depression F32.9 ??? Anxiety disorder F41.9 ??? Diabetes mellitus E11.9 ??? Hyperlipidemia E78.5 ??? Tricuspid valve insufficiency I07.1 ??? BHARATI (obstructive sleep apnea) G47.33 BP 114/74 Pulse 90 Temp 36.9 ??C (98.5 ??F) Wt 97 kg (213 lb 14.4 oz) SpO2 97% BMI 38.75 kg/m?? On exam, She looks well. Ext genitalia totally normal. No glazed erythema seen. Speculum exam done:Erythema has decreased since her last visit, now patchy, just a bit on the anterior lip. Internal exam: nl length to the vagina Impression: Improvement in her exam from prior visit Plan: Am not sure if this is from the doxy, or just time. For now, will just resume her internal estrogen, 1 gram 2X/week. Follow up scheduled, she asks about the cortisone shots I had discussed at her last visit, will reconsider if there is no improvement or she has any worsening of her exam at that time. documented in this encounter Plan of Treatment Upcoming Encounters Date Type Department Care Team (Late st Contact Info) Description 09/14/2023 11:00 AM EDT Office [place] [address] Mague Johnson MD [facility] [place] [address] documented as of this encounter Visit Diagnoses Diagnosis PCB (post coital bleeding) Postcoital bleeding documented in this encounter Care Teams Denitrator Operator Relationship Specialty Start Date End Date Bernadette Childs MD [address] [facility] [address] [place] [address] PCP - General 04/03/12 07/27/20 documented as of this encounter
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
--- OUTSIDE RECORDS SUMMARY | 2023-09-06 01:38 | XMS_ITS | Encounter Summary ---
[facility] [place] [address] Care Team Providers Care Director Of Casino Name Role Phone Noemi Sharma JANNA Primary Care Provider [phone] Encounter Details Date Type Department Care Team (Latest Contact Info) Description 05/18/2021 1:00 PM EDT Office [place] [address] Mague Johnson MD [facility] [place] [address] Type 2 diabetes mellitus, uncontrolled, with neuropathy; Vitamin D insufficiency Social History Tobacco Use Types Packs/Day Years [...] Sign Reading Time Taken Comments Blood Pressure 110/79 05/18/2021 12:18 PM EDT Pulse 91 05/18/2021 12:18 PM EDT Temperature 36.1 ??C (97 ??F) 05/18/2021 12:18 PM EDT Respiratory Rate - - Oxygen Saturation 98% 05/18/2021 12:18 PM EDT Inhaled Oxygen Concentration - - Weight 98.9 kg (218 lb) 05/18/2021 12:18 PM EDT Height 157.5 cm (5' 2) 05/18/2021 12:18 PM EDT Body Mass Index 39.87 05/18/2021 12:18 PM EDT documented in this encounter Patient Instructions * Patient Instructions* Mague Johnson MD - 05/18/2021 1:15 PM EDT Recommendation: 1. Medication: Patient will increase ozempic pen from 0.5 mg to 1 mg sc weekly. This will help reduce weight and cardiovascular outcomes for her with diabetes, CHF and cardiac cirrhosis. To cont glimiperide 4 mg 1-2 tab daily. To hold if low BG<80 or NPO To taper 70/30 mis insulin from 20-25u to 0-15u 2x/day when she increases ozempic cisneros and glimiperide to avoid low BG and allow her to titrate insulin by 2-5u if needed to keep BG at target of 80-180range. Target A1c <7% safely without too high or low BG. *Intolerant to metformin and Jardiance due to GI issues To start taking OTC-Vitamin D 2,000 iu daily. To continue all other medications. 2. Monitoring: [...] cont statin and follow with PCP and detention officer further for her lipid issue. 5. Lab: to check lab as ordered in the next couple of months locally as below (non-fasting is ok). Orders Placed This Encounter Procedures TSH Hemoglobin A1c Vitamin D, 25-Hydroxy Basic Metabolic Panel (non-fasting) Vitamin B12 U Albumin/Cre Ratio We will let patient know test lab test results and adjust medication if needed during this interim. 6. RTC: Next visit in 6 months in person so we can help adjust DM medication regimen further. documented in this encounter Progress Notes * Mague Johnson MD - 05/18/2021 1:00 PM EDT Endocrine Follow-up Note Date: 05/18/2021 Patient: Name: Teresita Fernández : 1965 PCP: Noemi Sharma APRN Reason for follow-up: Type 2 diabetes Brief History of Present Illness: Teresita Fernández is a very pleasant 55 y.o. female with the following problem list: [...] BMI 40-49.9 (morbid obesity) E66.01 ??? Depression F32.A ??? Anxiety disorder F41.9 ??? Diabetes mellitus E11.9 ??? Hyperlipidemia E78.5 ??? Tricuspid valve insufficiency I07.1 ??? BHARATI (obstructive sleep apnea) G47.33 Diabetes History: Teresita Fernández has had diabetes since age of 36 and intolerant to metformin & Jardiance and hasbeen using insulin since 2017 ~ 4 yrs ago. She also has insulin resistance due to obesity (BMI 41.5) and cardiac cirrhosis s/p pericardial stripping in 2017 for constrictive pericarditis with right-sided heart failure with improvement of her CHF. She has HTN, HLP, 2ry polycythemia from smoking (02/24ppd x 15 yrs) seen by plycor operator, gore cutter (Dr. Farnsworth) and detention officer (Dr. Sullivan) here. She has had diabetes since young age in her 30s. She started ozempic pen 0.25 mg - 0.5 mg weekly since Oct 2020 without GI side effects and will increase to optimal dose 1 mg sc weekly from today (05/18 Current outpatient diabetes regimen: Medications: 70/30 mix 20-25 units 2x/day BGFS Monitoring is done 2-3x times a day, ranging between 100s-200s mg/dl over the past 2 weeks. Used to get low to 59 prior but lately it was better lately. HbA1c was done on 07/17/20 and was 8.1%=> 7.0% (01/20/21) => 7.4% (03/27/21) Typical diet is: 3 meals and 0-1 snack a day Breakfast- skipped Lunch- turkey sandwich Supper- half a cup of chopsouey Drink - water Snack - may have protein shake at bedtime Diet plan: low carb low fat diet Typical exercise regimen is walking. Lots of stress- son is getting next month (she has only 1 son age 24 now and got 2 yrs ago) - lots of stress Trouble with hypoglycemia [...] unable to take tylenol, etc. ROS: Constitutional: +fatigue, + recent weight changes down 2 lbs since last fall. No polyuria & polydipsia Endocrine: No thyroid [...] Some joint aches and muscle pain. Psych: + depression and anxiety Past medical history is [...] BMI 40-49.9 (morbid obesity) E66.01 ??? Depression F32.A ??? Anxiety disorder F41.9 ??? Diabetes mellitus E11.9 ??? Hyperlipidemia E78.5 ??? Tricuspid valve insufficiency I07.1 ??? BHARATI (obstructive sleep apnea) G47.33 AMBULATORY MEDICATIONS: Current Outpatient Medications on File Prior to Visit Medication Sig Dispense Refill ??? loratadine (Claritin) 10 mg Tablet Take 10 mg by mouth daily. ??? Ozempic 0.25 mg or 0.5 mg(2 mg/1.5 mL) Pen Injector INJECT 0.25MG SUBCUTANEOUSLY EVERY 7 DAYS FOR 28 DAYS THEN 0.5MG EVERY 7 DAYS ??? fluticasone propionate (Flonase) 50 mcg/actuation [place], Suspension INSTILL 1 SPRAY INTO BOTH NOSTRILS TWICE A DAY ??? atorvastatin (Lipitor) 20 mg Tablet Take 1 tablet by mouth daily. 90 tablet PRN ??? insulin needles, disposable, 32 gauge x 5/32 Needle 1 each by [facility] [place]Non- Drug; Combo Route) route once a week. 50 each 3 ??? glimepiride (AMARYL) 4 mg Tablet Take 1-2 tablets by mouth daily. 180 tablet 3 ??? novoLIN 70/30 Suspension Inject 35 Units [...] 35 Units subcutaneously 2 times daily. ??? estradiol (ESTRACE) 0.01 % (0.1 mg/gram) Cream Place 2 g vaginally as needed. ??? albuterol 90 mcg/actuation HFA Aerosol Inhaler [...] mouth every 6 hours as needed. ??? escitalopram (Lexapro) 10 mg Tablet Take 10 mg by mouth daily. ??? HYDROmorphone (DILAUDID) 2 mg Tablet Take 2 mg by mouth every 3 hours as needed for Pain. ??? traZODone (DESYREL) 100 mg tablet Take 100 mg by mouth nightly. No current facility-administered medications on file prior [...] on file Tobacco Use ??? Smoking status: Current Every Day Smoker Packs/day: 0.25 Years: 15.00 Pack years: 3.75 Types: Cigarettes Last attempt to quit: 02/20/1996 Years since quittin.2 ??? Smokeless tobacco: Never Used Vaping Use ??? Vaping Use: Never used [...] Brother ??? Diabetes Brother Physical Exam BP 110/79 Pulse 91 Temp 36.1 ??C (97 ??F) Ht 157.5 cm (5' 2) Wt 98.9 kg (218 lb) SpO2 98% BMI 39.87 kg/m?? Appearance: Patient is very pleasant white female, mildly obese, clinically euthyroid, not in acutedistress Skin - normal in texture and temperature, [...] RECENT LABS: Outside lab 07/17/2012/1101/20/21 03/27/21 07/07/21 A1c 8.1%H 7.1 7.0 7.4 7.3% TSH 0.84 0.84 CBC H/H 16/48% CMP Ok (Cr 1.1, Ca 9.6, ALT 34) ok TC/LDL 264H/177H 157/84 TG/HDL 252H/37L 187/36L 25vitamin D 28L 27.9L B12 347 793 GGT 66H Normal CMP Urine microalbumin/Cr- negative Addendum: Outside lab 07/07/21 showed better A1c 7.3% (was 7.4% in Mar), good thyroid and better B12at 793 (was 347) but still low 25vitamin D at 27.9 (was 28; normal 30-100) => to take OTC-vitamin D 2,000 iu daily without missing it (otherwise she needs to double the dose) and continue OTC-B12 500 mcg daily further. Impression: eTresita Fernández has sub-optimal control of type II diabetes with insulin resistance due to obesity (BMI 41.5) and cardiac cirrhosis s/p pericardial stripping in 2017 for constrictive pericarditis with right-sided heart failure with improvement of her CHF. She also has HTN, HLP, 2ry polycy themia from smoking (02/24 ppd x 15 yrs) seen by plycor operator, gore cutter (Dr. Farnsworth) and detention officer (Dr. Sullivan) here. She has had diabetes since young age in her 30s over 10 yrs ago so we will check lab for baseline c-peptide to see if she still makes endogenous insulin to be able to respond wellto GLP1 analogue which will help her lose weight with better cardiovascular outcomes. Unfortunatelysilvino could not tolerate metformin and Jardiance due to severe GI side effects. We will try to optimize glimiperide pill and titrate ozempic pen weekly up further and cut back insulin further and weight down with goal to keep A1c <7% safely without hypo- or severe hyperglycemia. She started ozempic pen 0.25 mg - 0.5 mg weekly since Oct 2020 without GI side effects and will increase to optimal dose 1 mg sc weekly from today (05/18/21) Recommendation: 1. Medication: Patient will increase ozempic pen from 0.5 mg to 1 mg sc weekly. This will help reduce weight and cardiovascular outcomes for her with diabetes, CHF and cardiac cirrhosis. To cont glimiperide 4 mg 1-2 tab daily. To hold if low BG<80 or NPO To taper 70/30 mis insulin from 20-25u to 0-15u 2x/day when she increases ozempic cisneros and glimiperide to avoid low BG and allow her to titrate insulin by 2-5u if needed to keep BG at target of 80-180range. Target A1c <7% safely without too high or low BG. *Intolerant to metformin and Jardiance due to GI issues To start taking OTC-Vitamin D 2,000 iu daily and OTC-B12 500 mcg daily for her vitD deficiency and low normal in 300s (optimal 400-1000). To continue all other medications. 2. Monitoring: [...] cont statin and follow with PCP and detention officer further for her lipid issue. 5. Lab: to check lab as ordered in the next couple of months locally as below (non-fasting is ok). Orders Placed This Encounter Procedures ??? TSH ??? Hemoglobin A1c ??? Vitamin D, 25-Hydroxy ??? Basic Metabolic Panel (non-fasting) ??? Vitamin B12 ??? U Albumin/Cre Ratio We will let patient know test lab test results and adjust medication if needed during this interim. 6. RTC: Next visit in 6 months in person so we can help adjust DM medication [...] 11:00 AM EDT Office [place] [address] Mague Johnson MD [facility] [place] [address] documented as of this encounter Visit Diagnoses Diagnosis Type 2 diabetes mellitus, uncontrolled, with neuropathy Type II or unspecified type diabetes mellitus with neurological manifestations, uncontrolled Vitamin D insufficiency Unspecified vitamin D deficiency documented in this encounter Care Teams Director Of Casino Relationship Specialty Start Date End Date Noemi Sharma APRN [address] [place] [address] PCP - General Family Medicine 07/28/20 documented as of this encounter
--- OUTSIDE RECORDS SUMMARY | 2023-09-06 01:38 | XMS_ITS | Encounter Summary ---
Author Organization [facility] [place] [address] Care Team Providers Care Motion Picture Film Examiner Name Role Phone Noemi Sharma APRN Primary Care Provider [phone] Reason for Referral * Diagnostic Test (Routine) - Closed Specialty Diagnoses / Procedures Referred By Víctor thomas Referred To Contact Sleep Center Diagnoses BHARATI (obstructive sleep apnea) Procedures Sleep Study with Pap Titration Sleep Study with Pap Titration Veronica Rivera APRN [facility] [place] [address] [facility] Sleep Medicine [address] [place] [address] Referral ID Status Reason Start Date Expiration Date V isits Requested Visits Authorized [id number] Closed Specialty Service Requested 11/02/2021 11/02/2022 1 1 Reason for Visit * Consultation (Routine) - Closed Specialty Diagnoses / Procedures Referred By Víctor thomas Referred To Contact Sleep Center Diagnoses BHARATI (obstructive sleep apnea) Noemi Sharma APRN [address] [place] [address] [facility] Sleep Medicine [address] [place] [address] Referral ID Status Reason Start Date Expiration Date V isits Requested Visits Authorized [id number] Closed Consult, Test & Treat PCP Updated and/or Approved 07/27/2021 07/27/2022 6 6 Encounter Details Date Type Department Care Team (Late st Contact Info) Description 11/02/2021 10:00 AM EDT TH Visit (TeleHealth) Sleep Center at [facility] [address] [place] [address] Veronica Rivera, MACAR[employer]I PRESS OPERATOR [facility] [place] [address] BHARATI (obstructive sleep apnea); Difficulty with CPAP nasal mask use; Sinus tachycardia; Tricuspid valve insufficiency, unspecified etiology; Restrictive lung disease; Chronic right-sided heart failure Social History Tobacco Use Types Packs/Day Years [...] Sign Reading Time Taken Comments Blood Pressure - - Pulse - - Temperature - - Respiratory Rate - - Oxygen Saturation - - Inhaled Oxygen Concentration - - Weight 94.8 kg (209 lb) 10/30/2021 2:23 PM EDT Height 157.5 cm (5' 2) 10/30/2021 2:23 PM EDT Body Mass Index 38.23 10/30/2021 2:23 PM EDT documented in this encounter Patient Instructions * Patient Instructions* Veronica Rivera APRN - 11/02/2021 10:00 AM EDT Recommendations: --CPAP titration study r/t mask difficulty and weight loss, call to schedule --At the same time, we will order a replacement device for a 5+ year replacement to KMP, APAP 8-12cw, mask refit, and all supplies Call them if not heard from them in 2-3 weeks regarding the order status You will need a compliance visit once you receive machine CPAP compliance required for insurance coverage: Use CPAP therapy at least 5 hours nightly, 5 nights per week or at least 5 hours in a 24 hour period, 5 days/nights per week within the first 90 days of machine setup. If compliance is not met, you may need to pay for the CPAP balance in full out of pocket or else return the CPAP machine and start over with another sleep study to re-qualify for another insurance covered CPAP machine. For questions, contact your home care company. You can also visit the following web site for more information: [email or web address]/chz-[email or web address]-[email or web address] PAP Therapy and Insurance: What You Should Know --Go on [employer] to look at mask options For silicone allergies, consider the AirTouch F20 or the AirTouch N20 which have foam on the cushion instead of silicone However, for most masks, I would recommend using a cloth mask liner that goes between a silicone cushion and your face to eliminate silicone allergy --At anytime, visit www.sleepeducation.org for information on sleep apnea and treatments --Follow up after titration study and once she gets replacement device for compliance In case different machine is needed other than CPAP, I will place an order for that instead after the titration study Ongoing PAP tips when she restart therapy: --Call [employer] company for questions on machine, supply replacements, billing --Adjust mask straps nightly while laying down with machine on, just to snug, for best fit; do not overtighten as it can cause discomfort and greater mask leak --Consider the PadACheek cloth mask liner for comfort or bothersome mask leak: for information, call [phone] or go to www.Whitetruffle --If dry mouth: 1) adjust humidity up and/or heated tube temperature down, 2) consider over the counter Biotene mouth rinse, spray, or gel, 3) consider adding room humidifier for dryness and if humidity chamber runs low or dry by morning --If nasal congestion: 1) Try adjusting PAP humidity level, 2) Consider OTC saline nasal spray: 2 sprays per nostril twice daily, before affixing mask in evening and after removing mask in morning, and/or 3) consider nasal saline wash at night before affixing mask, and/or 4) consider over the counter nasal steroid spray --Handouts on helpful PAP tips, proper mask fit, parts cleaning/maintenance, supply replacement intervals, sent to patient through [facility] portal --Driving safety for everyone: do not drive if drowsy; if drowsy while driving, washing machine loader and puller to nap orrest Sleep difficulty: --CBT for insomnia is the first line therapy for insomnia (sleep coaching), call if you would like a referral --Consider extended release melatonin if trouble getting to sleep and staying asleep instead of regular release melatonin Melatonin information: It is a hormone that regulates the sleep/wake cycle. It is not for insomnia. However, sometimes it helps with getting to sleep. Supplemental melatonin works for some, not others. It is not recommended for terminologist use. It comes in regular release and controlled or slow release. Take the lowest effective dose. Start with 1mg tab. Take one hour before you wants to fall asleep and allow for at least 7 hours of sleep time after taking it, otherwise you may wake groggy. If 1mg doesn't work, increase dosage by 1mg every 2-3 nights up to 5mg. If 5mg doesn't work, try 10mg next. If 10mg doesn't work, stop melatonin. More may not work better. This is for regular release melatonin. There is also controlled release melatonin that may help with getting to sleep and staying asleep. REMfresh is one over the counter option. It comes in regular and EXTRA formulations. With either, start at one tab. There are other over the counter brands. They may have CR (controlled release) or XR (extended release) on the bottle. Check with the pharmacist if you have questions about what tobuy. Look for a GLP (good laboratory practice) or GMP (good manufacturing practice) label, which refers to federal regulations designed to affirm a product has the advertised quality and purity. Melatonin safety in the terminologist has not been determined in randomized, controlled studies. Melatonin may have side effects (though uncommon) and may interact with other medications though there is no data on how. Do not use melatonin if , lactating, have epilepsy or migraines, or taking warfarin (Coumadin). Do not give melatonin to children. Avoid alcohol and tasks that require a high level of alertness, such as driving or operating machinery, within 8 hours after taking melatonin. documented in this encounter Progress Notes * Veronica Rivera APRN - 11/02/2021 10:00 AM EDT Sleep Medicine Telehealth Consult Note CC/HPI: Ms. Teresita Fernández is a 56 y.o. female seen for repeat consult at the advice of Noemi Sharma APRN, to re-establish care for moderate BHARATI. Last seen in Spring 2017. She cannot use nose piece on CPAP therapy so she hasn't used CPAP for about 3 years. CPAP would dry her out badly. It takes her breath away. She opted out of bariatric surgery. She got and lost weight in the process. HPI continues below. Pt in [place] Visit by video Sleep Study History: 11/02/[address] Nickerson: history of poor sleep and daytime sleepiness and fatigue. She has a history of significant cardiopulmonary disease. Ms. Beltre also reports significant weight gain. 12/15/16 PSG, Dr. Nickerson: Snoring: mild Obstructive respiratory events observed: yes AHI: 17 CMS AHI: 30 (includes apneas + only hypopneas associated with 4% or greater desaturation) Mean SpO2: 90% Total sleep time with SpO2<=89%:43 min Total sleep time with SpO2<=88%: 9 min Minimum SpO2: 80% Weight: 237lbs 12/28/16 CPAP titration, Wt: 240lbs, Dr. Nickerson: polysomnogram demonstrated good control of obstructive events in NREM sleep at 8cm while non-supineand 10cm while supine. Only a very brief REM fragment was observed - hypopneas present at 10cm although leak also elevated at that time. Mask leak was otherwise well controlled. No hypoxemia present.No motor disorder identified. 1. AutoPAP set at a pressure range of 8-12 cm. XS airfit P10 nasal pillow mask used during study, although she reported some nasal irritation 2. Follow up appointment will be scheduled after initiating CPAP; call sooner with problems or questions. Sleep Pattern: Bed/Recliner/Wedge: bed, flat, sleeps alone Bedtime: 8-9:30p Position: sides, can't sleep on back anymore due to scar after open heart surgery Latency: < 30 mins most night Not taking trazodone or Ativan Melatonin 5mg, it can help with getting to sleep (prescribed 1 or 2 tabs, usually does one) Previously probably more quickly, under 30 mins now even with trazodone and ativan; before was variable - 30-120 min Awakenings: on water pills, 1-2x maybe a little less on average, 3-4x Wake time: by 6:30a, gets right up and showers Parasomnias: No nightmares, sleepwalking, dream enactment, occasional somniloquy and bruxism Motor: RLS: notices when she lays down at night, notices, reports mild, has to move feet to get to sleep She was told to eat pickles before bed and it stops symptoms PLMS: twitching less with PAP therapy Treatment: Previously APAP Device: AirSense 10 AutoSet, setup 01/31/17 Pressure: 8-13cw, could not tolerate 10-13cw because of having pneumonia, previousl 8-12cw Pressure Intolerance: none Interface/Mask: AirFit P10 for Her, XS pillows Difficulty tolerating mask interface: In beginning, hard because mask claustrophobia Chin Strap: Not needed Humidity on?: on auto HCC: [facility] [place], [place] Insurance: Medicare OFF CPAP: Snoring: Yes, without CPAP Nocturnal gasping: no Dry Mouth/Throat: R/t to meds and worse on CPAP Daytime Symptoms; Patient-reported last 4 scores: [facility] 10/26/2016 03/14/2017 06/17/2017 10/30/2021 [facility] 4 (Low Risk) 3 (Low Risk) 2 (Low Risk) 2 (Low Risk) Insomnia Severity Index 11 (Subthreshold insomnia) 6 (No clinically significant insomnia) 2 (No clinically significant insomnia) 9 (Subthreshold insomnia) VR12 - Physical Component Summary 25.21 - - - VR12 - Mental Component Summary 33.06 - - - Naps: no Dozing:no, unless rough night of sleep Driving: drives, denies drowsiness Close calls related to sleepiness denies Accidents related to sleepiness denies ROS: ENT: Nasal Obstruction: None : Nocturia: none ROS: CON: Weight change: lost weight since last sleep study, down 28lbs ENT: Nasal Obstruction: no PUL: FIGUEREDO: no CV: chest pain: no Hx CHF Palpitations: did on CPAP LE edema: no GI: GERD: no : Nocturia: yes, on lasix MSK: Pain: if she sleeps in one position too long, has to repositioning; it may wake her NEURO: sleep related headaches: no PSY: Depressed Mood/Anxiety: hx of, medications helps ALL: Environmental allergies: since she moved to an [facility] in [place], [place]; have been worse this year; on Flonase, Singular, gargles with salt water Social History: Living situation: now Employment: disabled r/t radical pericardectomy, cirrohsis, restrictive lung disease, loss of use in L Alcohol: none Smoking: cigarettes 0.5ppd currently Caffeine: minimal, cup coffee per day Other drugs: MJ, smokes, a couple hits if trouble sleeping Past Surgical History: Procedure Laterality Date ??? CHOLECYSTECTOMY ??? COLONOSCOPY ??? PRO LAP, CHOLECYSTECTOMY/GRAPH 02/19/2013 LAPAROSCOPIC CHOLECYSTECTOMY WITH CHOLANGIOGRAM performed by Octaviano Torrez MD at [facility] OR ??? PRO UNLISTED LAPAROSCOPIC PX LVR 02/19/2013 LAPAROSCOPIC LIVER BIOPSY performed by Octaviano Torrez MD at [facility] MA[facility] OR ??? UPPER GASTROINTESTINAL ENDOSCOPY Past Medical History: Diagnosis Date ??? Anxiety ??? Anxiety disorder ??? Cardiac cirrhosis ??? Depression ??? Diabetes mellitus ??? Hyperlipidemia ??? Obesity ??? BHARATI (obstructive sleep apnea) ??? Pericarditis Patient Active Problem List Diagnosis Code ??? [...] lung disease J98.4 ??? Sinus tachycardia R00.0 Outpatient Medications Marked as Taking for the 11/02/21 encounter (TH Visit (TeleHealth)) with Veronica Rivera APRN Medication Sig Dispense Refill ??? melatonin 5 mg Tablet TAKE ONE TO TWO TABLETS BY MOUTH AT BEDTIME ??? omeprazole (PriLOSEC) 20 mg Capsule, Delayed Release(E.C.) Take 20 mg by mouth daily. ??? montelukast (Singulair) 10 mg Tablet Take 10 mg by mouth daily. ??? benzonatate (Tessalon) 100 mg Capsule TAKE ONE CAPSULE BY MOUTH THREE TIMES A DAY NEEDED ??? atorvastatin (Lipitor) 20 mg Tablet TAKE ONE TABLET BY MOUTH EVERY DAY 90 tablet 3 ??? metoprolol succinate XL (Toprol-XL) 50 mg Tablet Sustained Release 24 hr TAKE ONE TABLET BY MOUTH EVERY DAY 90 tablet 3 ??? furosemide (Lasix) 20 mg Tablet Take 1 tablet by mouth daily. 90 tablet 3 ??? spironolactone (ALDACTONE) 50 mg Tablet Take 1 tablet by mouth daily. 90 tablet 3 ??? loratadine (Claritin) 10 mg Tablet Take 10 mg by mouth daily. ??? Ozempic 1 mg/dose (2 mg/1.5 mL) Pen Injector Inject 1 mg subcutaneously every 7 days. 9 mL 3 ??? fluticasone propionate (Flonase) 50 mcg/actuation [place], Suspension INSTILL 1 SPRAY INTO BOTH NOSTRILS TWICE A DAY ??? insulin needles, disposable, 32 gauge x 5/32 Needle 1 each by [facility].(Non- Drug; Combo Route) route once a week. 50 each 3 ??? glimepiride (AMARYL) 4 mg Tablet Take 1-2 tablets by mouth daily. 180 tablet 3 ??? [DISCONTINUED] escitalopram (Lexapro) 10 mg Tablet Take 10 mg by mouth daily. ??? BD Veo Insulin Syringe UF 0.3 mL 31 gauge x 15/64 Syringe ??? insulin NPH hum/reg insulin hm (NOVOLIN 70/30 U-100 INSULIN SUBQ) Inject subcutaneously 2 timesdaily. 12 units in am and 18 units in pm ??? escitalopram (LEXAPRO) 20 mg Tablet Take 20 mg by mouth daily. ??? [DISCONTINUED] omeprazole (PRILOSEC) 40 mg Capsule, Delayed Release(E.C.) Take 20 mg by mouth daily. Notable Medications: Melatonin Lexapro Physical Exam: Ht 157.5 cm (5' 2) Wt 94.8 kg (209 lb) BMI 38.23 kg/m?? General: 56 y.o. 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 Teresita Fernández is a 56 y.o. female seen for repeat consult of moderate obstructive sleep apnea on CPAP therapy to re-establish care. Last seen Spring 2017. CPAP not used for several years as she had difficulty with nasal mask and dryness with therapy. Pressures were tolerated when last used (APAP 8- 13cw well tolerated, we had tried higher pressures of 10-14cw but she did not tolerate them). Since last seen, she has lost > 10% body weight. Machine is > 5 years old. Reviewed reasons to treat in relation to her cardiopulmonary disease and treatment options including [facility] (not interested). She will retry CPAP therapy. Recommend titration study with weight loss.Due to time it takes to get machines these days, I will also place an order for a 5+ year CPAP replacement device now. Sleep difficulty discussed. Recommendations discussed below. Study results can be sent through [facility] Total time spent via telehealth with patient including charting, history and referral review, orders, counseling and recommendations: 55 minutes For Medicare patients, telehealth visit required due to ongoing COVID-19 public health emergency Recommendations: --CPAP titration study r/t mask difficulty and weight loss, call to schedule --At the same time, we will order a replacement device for a 5+ year replacement to KMP, APAP 8-12cw, mask refit, and all supplies Call them if not heard from them in 2-3 weeks regarding the order status You will need a compliance visit once you receive machine CPAP compliance required for insurance coverage: Use CPAP therapy at least 5 hours nightly, 5 nights per week or at least 5 hours in a 24 hour period, 5 days/nights per week within the first 90 days of machine setup. If compliance is not met, you may need to pay for the CPAP balance in full out of pocket or else return the CPAP machine and start over with another sleep study to re-qualify for another insurance covered CPAP machine. For questions, contact your home care company. You can also visit the following web site for more information: [email or web address]/patients/aua-wkf-avozfcwll PAP Therapy and Insurance: What You Should Know --Go on [employer] to look at mask options For silicone allergies, consider the AirTouch F20 or the AirTouch N20 which have foam on the cushion instead of silicone However, for most masks, I would recommend using a cloth mask liner that goes between a silicone cushion and your face to eliminate silicone allergy --At anytime, visit www.sleepeducation.org for information on sleep apnea and treatments --Follow up after titration study and once she gets replacement device for compliance In case different machine is needed other than CPAP, I will place an order for that instead after the titration study Ongoing PAP tips when she restart therapy: --Call [employer] for questions on machine, supply replacements, billing --Adjust mask straps nightly while laying down with machine on, just to snug, for best fit; do not overtighten as it can cause discomfort and greater mask leak --Consider the PadACheek cloth mask liner for comfort or bothersome mask leak: for information, call [phone] or go to www.[employer]ruffle --If dry mouth: 1) adjust humidity up and/or heated tube temperature down, 2) consider over the counter Biotene mouth rinse, spray, or gel, 3) consider adding room humidifier for dryness and if humidity chamber runs low or dry by morning --If nasal congestion: 1) Try adjusting PAP humidity level, 2) Consider OTC saline nasal spray: 2 sprays per nostril twice daily, before affixing mask in evening and after removing mask in morning, and/or 3) consider nasal saline wash at night before affixing mask, and/or 4) consider over the counter nasal steroid spray --Handouts on helpful PAP tips, proper mask fit, parts cleaning/maintenance, supply replacement intervals, sent to patient through [facility] portal --Driving safety for everyone: do not drive if drowsy; if drowsy while driving, washing machine loader and puller to nap orrest Sleep difficulty: --CBT for insomnia is the first line therapy for insomnia (sleep coaching), call if you would like a referral --Consider extended release melatonin if trouble getting to sleep and staying asleep instead of regular release melatonin Melatonin information: It is a hormone that regulates the sleep/wake cycle. It is not for insomnia. However, sometimes it helps with getting to sleep. Supplemental melatonin works for some, not others. It is not recommended for halfway use. It comes in regular release and controlled or slow release. Take the lowest effective dose. Start with 1mg tab. Take one hour before you wants to fall asleep and allow for at least 7 hours of sleep time after taking it, otherwise you may wake groggy. If 1mg doesn't work, increase dosage by 1mg every 2-3 nights up to 5mg. If 5mg doesn't work, try 10mg next. If 10mg doesn't work, stop melatonin. More may not work better. This is for regular release melatonin. There is also controlled release melatonin that may help with getting to sleep and staying asleep. REMfresh is one over the counter option. It comes in regular and EXTRA formulations. With either, start at one tab. There are other over the counter brands. They may have CR (controlled release) or XR (extended release) on the bottle. Check with the pharmacist if you have questions about what tobuy. Look for a GLP (good laboratory practice) or GMP (good manufacturing practice) label, which refers to federal regulations designed to affirm a product has the advertised quality and purity. Melatonin safety in the halfway has not been determined in randomized, controlled studies. Melatonin may have side effects (though uncommon) and may interact with other medications though there is no data on how. Do not use melatonin if , lactating, have epilepsy or migraines, or taking warfarin (Coumadin). Do not give melatonin to children. Avoid alcohol and tasks that require a high level of alertness, such as driving or operating machinery, within 8 hours after taking melatonin. The patient indicates understanding of these issues and agrees with the plan. Veronica Rivera APRN Cc: Noemi Sharma APRN documented in this encounter Miscellaneous Notes * Addendum Note - Veronica Rivera APRN - 11/02/2021 10:00 AM EDTAddended by: VERONICA RIVERA on: 05/21/2022 03:53 PM Modules accepted: Orders documented in this encounter Plan of Treatment Upcoming Encounters Date Type Department Care Team (Late st Contact Info) Description 09/14/2023 11:00 AM EDT Office [place] [address] Mague Johnson MD [facility] [place] [address] Scheduled Orders Name Type Priority Associated Diagnoses Orde r Schedule Sleep Study with Pap Titration Sleep Center Routine BHARATI (obstructive sleep apnea) Expected: 05/21/2022, Expires: 11/01/2022 documented as of this encounter Visit Diagnoses Diagnosis BHARATI (obstructive sleep apnea) Obstructive sleep apnea (adult) (pediatric) Difficulty with CPAP nasal mask use Reserved for inherently not codable concepts WITHOUT codable children Sinus tachycardia Other specified cardiac dysrhythmias Tricuspid valve insufficiency, unspecified etiology Restrictive lung disease Other diseases of lung, not elsewhere classified Chronic right-sided heart failure Congestive heart failure, unspecified documented in this encounter Care Teams Motion Picture Film Examiner Relationship Specialty Start Date End Date Noemi Sharma APRN [address] [place] [address] PCP - General Family Medicine 07/28/20 documented as of this encounter
--- OUTSIDE RECORDS SUMMARY | 2023-09-06 01:38 | XMS_ITS | Encounter Summary ---
Author Organization [facility] [place] [address] Care Team Providers Care Electrical Mechanic Name Role Phone Bernadette Childs MD Primary Care Provider [phone] Reason for Visit * Reason Comments Follow-up Encounter Details Date Type Department Care Team (Late st Contact Info) Description 04/23/2019 3:00 PM EST Office Visit Obstetric[place] [address] Maricarmen Rodriguez MD [facility] OBSTETRICS & [place] [address] PCB (post coital bleeding) Social History Tobacco [...] Sign Reading Time Taken Comments Blood Pressure 115/73 04/23/2019 2:50 PM EST Pulse 96 04/23/2019 2:50 PM EST Temperature 36.9 ??C (98.4 ??F) 04/23/2019 2:50 PM ES T Respiratory Rate - - Oxygen Saturation 97% 04/23/2019 2:50 PM EST Inhaled Oxygen Concentration - - Weight 97.5 kg (215 lb) 04/23/2019 2:50 PM EST Height - - Body Mass Index 38.95 06/07/2018 3:49 PM EDT documented in this encounter Progress Notes * Maricarmen Rodriguez MD - 04/23/2019 3:00 PM EST Ms. Fernández is a 53 y.o. here for post coital bleeding. Still bleeding after/during sex but less, and is pink. Had a biopsy when I first saw her - not lichenoid. Had an ultrasound - thin endometrial stripe. Using estrace cream internally once a week. Using a lubricant externally to vulva skin - works well. Can't seem to get DM sugars under good control. Would be interested in seeing an inspector chief here. Outpatient Medications Marked as Taking for the 04/23/19 encounter (Office Visit) with Maricarmen Rodriguez MD Medication Sig Dispense Refill ??? metFORMIN (FORTAMET) 1,000 mg Tablet Extended Rel 24 hr ??? BD Veo Insulin Syringe UF 0.3 mL 31 gauge x 15/64 Syringe ??? valACYclovir (VALTREX) 1 gram Tablet ??? metoprolol succinate (TOPROL-XL) 25 mg Tablet Sustained Release 24 hr TAKE ONE TABLET BY MOUTH EVERY DAY 90 tablet 3 ??? insulin NPH hum/reg insulin hm (NOVOLIN 70/30 U-100 INSULIN SUBQ) Inject subcutaneously 2 timesdaily. ??? estradiol (ESTRACE) 0.01 % (0.1 mg/gram) Cream Place 2 g vaginally daily. ??? gabapentin (NEURONTIN) 800 mg Tablet Take 800 mg by mouth 3 times daily. ??? [DISCONTINUED] PEN NEEDLE 31 gauge x 3/16 Needle use once daily FOR LANTUS PEN 1 ??? albuterol 90 mcg/actuation HFA Aerosol Inhaler [...] tablet Take 100 mg by mouth nightly. Patient Active Problem List Diagnosis Code ??? [...] ??? BHARATI (obstructive sleep apnea) G47.33 BP 115/73 (BP Location (NBP): Right arm, Patient Position: Sitting, BP Cuff Sizes: Large Adult (32-43 cm)) Pulse 96 Temp 36.9 ??C (98.4 ??F) (Oral) Wt 97.5 kg (215 lb) SpO2 97% BMI 38.95 kg/m?? On exam, she looks well. The vulva looks healthy. Exocervix is pink, cervix is flattened, difficultto see entire inferior lip. Not glazed. No bleeding with touch using the scopette or palpation. Impression: I think the exocervix is much less reddened than when I first saw her. Discussed I would choose to observe and not inject triamcinolone into exocervix - no guarantee it will work, unclear if really lichenoid or not. Plan: Continue estrace cream once a week as she is doing. F/u scheduled, If bleeding worsens or anything changes would certainly consider triamincolone 5 mg/ml into exocervix. documented in this encounter Plan of Treatment Upcoming Encounters Date Type Department Care Team (Late st Contact Info) Description 09/14/2023 11:00 AM EDT Office [place] [address] Mague Johnson MD [facility] [place] [address] documented as of this encounter Visit Diagnoses Diagnosis PCB (post coital bleeding) Postcoital bleeding documented in this encounter Care Teams Electrical Mechanic Relationship Specialty Start Date End Date Bernadette Childs MD [address] [place] [address] PCP - General 04/03/12 07/27/20 documented as of this encounter
--- OUTSIDE RECORDS SUMMARY | 2023-09-06 01:38 | XMS_ITS | Encounter Summary ---
Author Organization [facility] [place] [address] Care Team Providers Care Igniter Capper Name Role Phone Noemi Sharma APRN Primary Care Provider [phone] Encounter Details Date Type Department Care Team (Late st Contact Info) Description 03/26/2021 Ancillary Procedure [place] [address] Noemi Sharma APRN [address] [place], [place] [address] Social History Tobacco Use Types Packs/Day Years [...] 11:00 AM EDT Office [place] [address] Mague Johnson MD [facility] [place] [address] documented as of this encounter Procedures Procedure Name Priority Date/Time Associated Diagnosis Comments FILM LIBRARY STORAGE ONLY ULTRASOUND STUDY Routine 03/26/2021 12:00 AM EST documented in this encounter Results * Film Library- Storage Only Ultrasound Study (03/26/2021 12:00 AM EST) Narrative [facility] - 03/12/2022 12:39 PM EST This exam is auto-finalizing. It's purpose is for storage only. Noemi Sharma APRN [employer] FILM LIBRARY ORDERABLES Performing Organization Address City/State/[facility] Co de Phone Number [place], [place] documented in this encounter Visit Diagnoses Not on filedocumented in this encounter Care Teams Igniter Capper Relationship Specialty Start Date End Date Noeim Sharma APRN [address] [place] [address] PCP - General Family Medicine 07/28/20 documented as of this encounter
--- OUTSIDE RECORDS SUMMARY | 2023-09-06 01:38 | XMS_ITS | Encounter Summary ---
Author Organization [facility] [place] [address] Care Team Providers Care Bilingual Branch Manager Name Role Phone Noemi Sharma APRN Primary Care Provider [phone] Encounter Details Date Type Department Care Team (Late Contact Info) Description 12/02/2020 Ancillary Procedure [place] [address] Noemi Sharma APRN [address] [place], [place] [address] Social History Tobacco Use Types Packs/Day Years [...] 11:00 AM EDT Office [place] [address] Mague Johnson MD [facility] [place] [address] documented as of this encounter Procedures Procedure Name Priority Date/Time Associated Diagnosis Comments FILM LIBRARY STORAGE ONLY ULTRASOUND STUDY Routine 12/02/2020 12:00 AM EDT documented in this encounter Results * Film Library- Storage Only Ultrasound Study (12/02/2020 12:00 AM EDT) Narrative [facility] - 03/12/2022 12:38 PM EST This exam is auto-finalizing. It's purpose is for storage only. Noemi Sharma APRN [place] FILM LIBRARY ORDERABLES Performing Organization Address City/State/[facility] Co de Phone Number [place], [place] documented in this encounter Visit Diagnoses Not on filedocumented in this encounter Care Teams Bilingual Branch Manager Relationship Specialty Start Date End Date Noemi Sharma APRN [address] [place] [address] PCP - General Family Medicine 07/28/20 documented as of this encounter
--- OUTSIDE RECORDS SUMMARY | 2023-09-06 01:38 | XMS_ITS | Encounter Summary ---
Author Organization [facility] Address [facility] [place] [address] Care Team Providers Care Dryerman/Woman Name Role Phone Noemi Sharma APRN Primary Care Provider [phone] Reason for Visit * Consultation (Routine) - Closed Specialty Diagnoses / Procedures Referred By Víctor thomas Referred To Contact Gastroenterology Diagnoses Abnormal levels of other serum enzymes Unspecified cirrhosis of liver unspecified cirrhosis of liver Noemi Sharma APRN [address] [place] [address] [facility] [place] [address] [address] Referral ID Status Reason Start Date Expiration Date V isits Requested Visits Authorized [id number] Closed Consult, Test & Treat Connection Center PCP Updated and/or Approved 07/18/2020 07/18/2021 12 12 Encounter Details Date Type Department Care Team (Late st Contact Info) Description 10/15/2020 1:00 PM EDT Office Visit [place] [address] Karen Farnsworth MD [facility] [place] [address] Hepatic cirrhosis, unspecified hepatic cirrhosis type, unspecified [...] Sign Reading Time Taken Comments Blood Pressure 104/66 10/15/2020 12:56 PM EDT Pulse 87 10/15/2020 12:56 PM EDT Temperature - - Respiratory Rate - - Oxygen Saturation - - Inhaled Oxygen Concentration - - Weight 102.1 kg (225 lb) 10/15/2020 12:56 PM EDT Height - - Body Mass Index 41.15 09/26/2020 3:08 PM EDT documented in this encounter Progress Notes * Karen Farnsworth MD - 10/15/2020 1:00 PM EDT Gastroenterology and Hepatology Consult Patient: Teresita Fernández : 1965 Provider: Karen Farnsworth MD Problem List: Cirrhosis -diagnosed 2012 by liver biopsy at the time of ccy -path was consistent with cirrhosis from chronic passive congestion; she had chronic pericarditis as the etiology. She underwent percardial stripping in 2013 at [facility]. Edema symptoms resolved. -follow by Dr. 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 2018. 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 I met her in 2013 when she presented with a variety of symptoms including SOB, LE edema. Liver biopsy was consistent with cardiac cirrhosis. I had recommended surgical treatment of chronic pericarditis, but then I did not see her in follow up. Over the years she has done well from the liver standpoint with signs of decompensation. Cardiac function has also been stable with no recurrence of heart failure. Current issues: Goes upstairs is ok Walking makes her short of breath Has generalized fatigue Current 225 lb- highest weight 250 lbs Current Outpatient Medications Medication Sig Dispense Refill ??? fluticasone propionate (Flonase) 50 mcg/actuation [place], Suspension INSTILL 1 SPRAY INTO BOTH NOSTRILS TWICE A DAY ??? semaglutide (Ozempic) 0.25 mg or 0.5 mg(2 mg/1.5 mL) Pen Injector Inject 0.25 mg subcutaneouslyevery 7 days for 28 days, THEN 0.5 mg every 7 days for 28 days. 6 mL 11 ??? insulin needles, disposable, 32 gauge x 532 Needle 1 each by [facility].(Non- Drug; Combo Route) route once a [...] by mouth daily. 90 tablet 3 ??? BD Veo Insulin Syringe UF 0.3 mL 31 gauge x 15/64 Syringe ??? valACYclovir (VALTREX) 1 gram Tablet ??? insulin NPH hum/reg insulin hm (NOVOLIN 70/30 U-100 INSULIN SUBQ) Inject 35 Units subcutaneously 2 times daily. ??? estradiol (ESTRACE) 0.01 % (0.1 mg/gram) Cream Place 2 g vaginally daily. ??? HYDROmorphone (DILAUDID) 2 mg Tablet [...] tablet Take 100 mg by mouth nightly. ??? fluconazole (Diflucan) 150 mg Tablet 1 tablet by mouth once. Repeat in three days if needed. (Patient not taking: Reported on 09/03/2020) 2 tablet 2 No current facility-administered medications for this visit. Vitals: 10/15/20 1256 BP: 104/66 Pulse: 87 Weight: 102.1 kg (225 lb) Body mass index is 41.15 kg/m??. Exam: Looks well Chest- clear Heart- RRR, nl S1, S2 Abd- non distended, non tender Ext- no edema Attempted fibroscan, but not able to get valid results likely due to body habitus Assessment and Plan: 55 y.o. 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 This has since been treated and she has had no further progression of liver disease. The question she has is whether she needs ongoing surveillance for cirrhosis complication since she has had the cardiac has been treated. We discussed that we don't really have data on risk of HCC in this situation. Certainly treating the cardiac issues decreases the risk of progression of liver disease. Cardiac cirrhosis is one condition were the risk of HCC is higher than with other causes of cirrhosis. This fact and the fact that she has risk factors for fatty liver (obesity, diabetes, sleep apnea) make me think she should continue to be screened for hcc. Recommendations: -continue to follow platelets, albumin yearly for signs of progression of liver disease -continue liver ultrasounds q 6 months -work on managing the metabolic syndrome to avoid complications of fatty liver disease -we discussed repeating liver biopsy, but felt it was unlikely to mold insert changer. -she will continue to follow with Dr. Wylie Time spent with patient: Time spent reviewing records, documenting: Karen Farnsworth MD Section of Gastroenterology & Hepatology [address] [place] [id number] Cc: Noemi Sharma APRN documented in this encounter Plan of Treatment Upcoming Encounters Date Type Department Care Team (Late st Contact Info) Description 09/14/2023 11:00 AM EDT Office Visit [place] [address] Mague Johnson MD [facility] [place] [address] documented as of this encounter Visit Diagnoses Diagnosis Hepatic cirrhosis, unspecified hepatic cirrhosis type, unspecified whether ascites present documented in this encounter Care Teams Dryerman/Woman Relationship Specialty Start Date End Date Noemi Sharma APRN [address] [place] [address] PCP - General Family Medicine 07/28/20 documented as of this encounter
--- OUTSIDE RECORDS SUMMARY | 2023-09-06 01:38 | XMS_ITS | Encounter Summary ---
Author Organization [facility] [place] [address] Care Team Providers Care Skiver Uppers Or Linings Name Role Phone Noemi Sharma APRN Primary Care Provider [phone] Reason for Visit * Reason Onset Date Comments Appointment 01/04/2022 Last visit Jan 22 for DM type 2 now lab with PCP showed higher A1c, to schedule to see Corinne rosales Thanks! Patient was seen in Dec 12. Left message for patient to call and schedule 6 month follow up. Encounter Details Date Type Department Care Team (Late st Contact Info) Description 01/04/2022 [place]phone [place] [address] Sierra Arce Appointment (Last visit Jan 2021 for DM type 2 now lab with PCP showed higher A1c, to schedule to see Corinne rosales, Thanks! Patient was seen in Dec 12. Left message for patient to call and schedule 6 month follow up.) Social History Tobacco Use Types Packs/Day Years [...] 11:00 AM EDT Office [place] [address] Mague Johnson MD [facility] [place] [address] documented as of this encounter Visit Diagnoses Not on filedocumented in this encounter Care Teams Skiver Uppers Or Linings Relationship Specialty Start Date End Date Noemi Sharma APRN [address] [place] [address] PCP - General Family Medicine 07/28/20 documented as of this encounter
--- OUTSIDE RECORDS SUMMARY | 2023-09-06 01:38 | XMS_ITS | Encounter Summary ---
Author Organization [facility] [place] [address] Care Team Providers Care Customer Support Consultant Name Role Phone Noemi Sharma APRN Primary Care Provider [phone] Encounter Details Date Type Department Care Team (Late st Contact Info) Description 06/18/2021 Refill Cardiology at [address] [address] Win Kim, RN Social History Tobacco Use Types Packs/Day [...] encounter Miscellaneous Notes * Telephone Encounter - Win Kim, RN - 06/18/2021 10:31 AM EDT Images from the original note were not included. Requested Prescriptions Pending Prescriptions Disp Refills ??? furosemide (Lasix) 20 mg Tablet 90 tablet 3 Sig: Take 1 tablet by mouth daily. ??? spironolactone (ALDACTONE) 50 mg Tablet 90 tablet 3 Sig: Take 1 tablet by mouth daily. Received an electronic MyD-H prescription refill request for above Lasix and Aldactone from Ms. Fernández, directing refills to the [facility], in [place], [place]. Refill request for 90 days with 3 refills advanced, anticipating recommended follow up in October,. Reviewed Epic record and last office note from Dr. Sullivan dated 04/22/2021. Plan: 1. Continue current medications 2. Review her recent cholesterol blood work when available 3. Follow-up in the clinic in 6 months ?? Cornelius Sullivan MD (From [facility]): Refill prepped and forwarded to Provider for authorization Ritchie Kim RNspool tender Team Nurse [facility] Ambulatory Cardiology documented in this encounter Plan of Treatment Upcoming Encounters Date Type Department Care Team (Late st Contact Info) Description 09/14/2023 11:00 AM EDT Office [place] [address] Mague Johnson MD [facility] [place] [address] documented as of this encounter Visit Diagnoses Diagnosis Fluid retention Other fluid overload Cardiac cirrhosis Cirrhosis of liver without mention of alcohol documented in this encounter Care Teams Customer Support Consultant Relationship Specialty Start Date End Date Noemi Sharma APRN [address] [place] [address] PCP - General Family Medicine 07/28/20 documented as of this encounter
--- OUTSIDE RECORDS SUMMARY | 2023-09-06 01:38 | XMS_ITS | Encounter Summary ---
Author Organization [facility] Address [facility] [place] [address] Care Team Providers Care Shoulder Boner Name Role Phone Noemi Sharma APRN Primary Care Provider [phone] Reason for Referral * Consultation (Routine) - Closed Specialty Diagnoses / Procedures Referred By Víctor thomas Referred To Contact Sleep Center Diagnoses BHARATI (obstructive sleep apnea) Noemi Sharma APRN [address] [place] [address] [facility] [address] [place] [address] Referral ID Status Reason Start Date Expiration Date V isits Requested Visits Authorized [id number] Closed Consult, Test & Treat PCP Updated and/or Approved 07/27/2021 07/27/2022 6 6 Encounter Details Date Type Department Care Team (Latest Contact Info) Description 07/27/2021 Transcribe Orders eDH Incoming Referrals [phone] Noemi Sharma APRN [address] [place], [place] [id number] BHARATI (obstructive sleep apnea) Social History Tobacco [...] 11:00 AM EDT Office Visit [place] [address] Mague Johnson MD [facility] DR [place]IN[place] [address] Scheduled Referrals Name Type Priority Associated Diagnoses Orde r Schedule Referral to Sleep Disorders Center Outpatient Referral Routine BHARATI (obstructive sleep apnea) Ordered: 07/27/2021 documented as of this encounter Visit Diagnoses Diagnosis BHARATI (obstructive sleep apnea) Obstructive sleep apnea (adult) (pediatric) documented in this encounter Care Teams Shoulder Boner Relationship Specialty Start Date End Date Noemi Sharma APRN [address] [place] [address] PCP - General Family Medicine 07/28/20 documented as of this encounter
--- OUTSIDE RECORDS SUMMARY | 2023-09-06 01:38 | XMS_ITS | Encounter Summary ---
Author Organization Formerly [facility] Address [facility] [place] [address] Care Team Providers Care Couples Therapist Name Role Phone Noemi Sharma JANNA Primary Care Provider [phone] [phone] Encounter Details Date Type Department Care Team (Latest Contact Info) Description 12/15/2021 4:00 PM EDT TH Visit (TeleHealth) [place] [address] Mague Johnson MD [facility] DR ENDOCRINOLOG[place] [address] Controlled type 2 diabetes mellitus without complication, [...] - - Temperature - - Respiratory Rate 12 12/15/2021 3:55 PM EDT Oxygen Saturation - - Inhaled Oxygen Concentration - - Weight 94.8 kg (209 lb) 12/15/2021 3:55 PM EDT Height 157.5 cm (5' 2) 12/15/2021 3:55 PM EDT Body Mass Index 38.23 12/15/2021 3:55 PM EDT documented in this encounter Patient Instructions * Patient Instructions* Mague Johnson MD - 12/15/2021 4:00 PM EDT --To do lab on 01/10/22 next visit and fax results to me at [phone]. Thanks! Orders Placed This Encounter Procedures Hemoglobin A1c Vitamin D, 25-Hydroxy Recommendation: 1. Medication: Patient will continue ozempic pen 1 mg sc weekly. This will help reduce weight and cardiovascular outcomes for her with diabetes, CHF and cardiac cirrhosis. To cont glimiperide 4 mg 1-2 tab daily. To hold if low BG<80 or NPO Already tapered 70/30 mis insulin 10u qAM and 16u qPM 2x/day -- to hold if BG <90. While using ozempic and glimiperide to avoid low BG. Target of 80-180 range. Target A1c <7% safely *Intolerant to metformin and Jardiance due to GI issues To cont taking OTC-Vitamin D 2,000 iu daily (2x1,000iu) and OTC-B12 1,000 mcg daily for her vitD deficiency and low normal B12 in 300s (optimal 400-1000). => If vitD remains low normal or low, she will increase OTC-vitamin D to 5,000 iu daily in winter and then every other day in summer months. Will recheck lab in late Dec 2021. To continue all other medications. 2. Monitoring: [...] cont statin and follow with PCP and rib cutter further for her lipid issue. 5. Lab: to check lab as ordered next month with PCP locally (non-fasting is ok). [...] Progress Notes * Mague Johnson MD - 12/15/2021 4:00 PM EDT Endocrine Follow-up Note Date: 12/15/2021 Patient: Name: Teresita Fernández : 1965 PCP: Noemi Sharma APRN Reason for follow-up: Type 2 diabetes with improvement of obesity on ozempic with less insulin need. Brief History of Present Illness: Teresita Fernández is a very pleasant 56 y.o. female with the following problem list: [...] and hasbeen using insulin since 2017 ~ 5 yrs ago. 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 She has HTN, HLP, 2ry polycythemia from smoking (02/24 ppd x 15 yrs) seen by research physician, reed repairer (Dr. Farnsworth) and rib cutter (Dr. Sullivan) here. She has had diabetes since young age in her 30s. She started ozempic pen 0.25 mg - 0.5 mg -> 1 mg sc weekly (since Oct 2020) without GI side effects and already increased to optimal dose 1 mg sc weekly since 05/18/21 Current outpatient diabetes regimen: Medications: 70/30 mix 10-16 units 2x/day BGFS Monitoring is done 2-3x times a day, ranging between 70s-150s mg/dl over the past 2 weeks. Used to get low to 59 prior prior but lately it was better lately. HbA1c was done on 07/17/20 and was 8.1%=> 7.0% (01/20/21) => 7.4% (03/27/21)=> 6.4% (10/09/21)!! Typical diet is: 3 meals and 0-1 [...] from fatigue, + recent weight changes down 12 lbs since last fall. No polyuria & [...] to Visit Medication Sig Dispense Refill ??? Ozempic 1 mg/dose (2 mg/1.5 mL) Pen Injector Inject 1 mg subcutaneously every 7 days. 9 mL 3 ??? glimepiride (AMARYL) 4 mg Tablet Take 1-2 tablets by mouth daily. 180 tablet 3 ??? insulin NPH hum/reg insulin hm (NOVOLIN 70/30 U-100 INSULIN SUBQ) Inject 10- 16 Units subcutaneously 2 times daily. 12 units in am and 18 units in pm ??? atorvastatin (Lipitor) 20 mg Tablet Take 1 tablet by mouth daily. 90 tablet 3 ??? furosemide (Lasix) 20 [...] Take 10 mg by mouth daily. ??? [DISCONTINUED] benzonatate (Tessalon) 100 mg Capsule TAKE ONE CAPSULE BY MOUTH THREE TIMES A DAY NEEDED ??? loratadine (Claritin) 10 mg Tablet Take 10 mg by mouth daily. ??? fluticasone propionate (Flonase) 50 mcg/actuation Premium, Suspension INSTILL 1 SPRAY INTO BOTH NOSTRILS TWICE A DAY ??? [DISCONTINUED] insulin needles, disposable, 32 gauge x Needle 1 each by [facility]Non-Drug; Combo Route) route once a week. 50 each 3 ??? [DISCONTINUED] fluconazole (Diflucan) 150 mg Tablet 1 tablet by mouth once. Repeat in three days if needed. (Patient not taking: Reported on 10/30/2021) 2 tablet 2 ??? BD Veo Insulin Syringe UF 0.3 mL 31 gauge x Syringe ??? valACYclovir (VALTREX) 1 gram Tablet ??? albuterol 90 mcg/actuation HFA Aerosol Inhaler Inhale 2 puffs into the lungs 4 times daily as needed for Wheezing (VENTOLIN). Use with spacer ??? escitalopram (LEXAPRO) 20 mg Tablet Take 20 mg by mouth daily. ??? [DISCONTINUED] polyethylene glycol (MIRALAX) 17 gram Powder in Packet Take 17 g by mouth as needed. No current facility-administered medications on file prior to visit. ADR/ALLERGIES: Allergies Allergen Reactions ??? Latex Rash ??? Metformin Diarrhea ??? Scopolamine Itching and Rash Itching erythematous rash resolved with scop patch removal. ??? Adhesive Bandage Localized Reaction ??? Amoxicillin Trihydrate Rash ??? Doxycycline Rash, diarrhea, upset stomach ??? Jardiance [Empagliflozin] ??? Penicillins Rash ??? [...] Last attempt to quit: 02/20/1996 Years since quittin.8 ??? Smokeless tobacco: Never Used Vaping Use [...] Diabetes Brother ??? Diabetes Brother Physical Exam Resp 12 Ht 157.5 cm (5' 2) Wt 94.8 kg (209 lb) BMI 38.23 kg/m?? Appearance:moderately-obese, very pleasant, NAD HEENT: PERRLA, EOMI, no [...] LABS: Outside lab 07/17/2012/1101/20/21 03/27/21 07/07/21 10/09/21 A1c 8.1%H 7.1 7.0 7.4 7.3% 6.4% TSH 0.84 0.84 CBC H/H 16/48% CMP Ok (Cr 1.1, Ca 9.6, ALT 34) ok TC/LDL 264H/177H 157/84 TG/HDL 252H/37L 187/36L 25vitamin D 28L 27.9L 33.3, low normal (nl 30-100) B12 347 793 GGT 66H Normal CMP Urine microalbumin/Cr- negative Outside lab 07/07/21 showed better A1c 7.3% (was 7.4% in Mar), good thyroid and better B12 at 793 (was 347) but still low 25vitamin D at 27.9 (was 28; normal 30-100) => to take OTC-vitamin D 2,000 iu daily without missing it (otherwise she needs to double the dose) and continue OTC-B12 500 mcg daily further. 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 She also has HTN, HLP, 2ry polycythemia from smoking (02/24 ppd x 15 yrs) seen by research physician, reed repairer (Dr. Farnsworth) and rib cutter (Dr. Sullivan) here. She has had diabetes [...] 1. Medication: Patient will continue ozempic pen 1 mg sc weekly. This will help reduce weight and cardiovascular outcomes for her with diabetes, CHF and cardiac cirrhosis. To cont glimiperide 4 mg 1-2 tab daily. To hold if low BG<80 or NPO Already tapered 70/30 mis insulin 10u qAM and 16u qPM 2x/day -- to hold if BG <90. While using ozempic and glimiperide to avoid low BG. Target of 80-180 range. Target A1c <7% safely *Intolerant to metformin and Jardiance due to GI issues To cont taking OTC-Vitamin D 2,000 iu daily (2x1,000iu) and OTC-B12 1,000 mcg daily for her vitD deficiency and low normal B12 in 300s (optimal 400-1000). => If vitD remains low normal or low, she will increase OTC-vitamin D to 5,000 iu daily in winter and then every other day in summer months. Will recheck lab in late Dec 2021. To continue all other medications. 2. Monitoring: [...] cont statin and follow with PCP and rib cutter further for her lipid issue. 5. Lab: to check lab as ordered next month with PCP locally (non-fasting is ok). [...] 11:00 AM EDT Office [place] [address] Mague Johnson MD [facility] DR ENDOCRINOLOG[place] [address] documented as of this encounter Visit Diagnoses Diagnosis Controlled type 2 diabetes mellitus without complication, with long-term current use of insulin Vitamin D deficiency Unspecified vitamin D deficiency documented in this encounter Care Teams Couples Therapist Relationship Specialty Start Date End Date Noemi Sharma APRN [address] [place] [address] PCP - General Family Medicine 07/28/20 documented as of this encounter
--- OUTSIDE RECORDS SUMMARY | 2023-09-06 01:38 | XMS_ITS | Encounter Summary ---
Author Organization [facility] [place] [address] Care Team Providers Care Tap Grinder Name Role Phone Noemi Sharma APRN Primary Care Provider [phone] [phone] Encounter Details Date Type Department Care Team (Latest Contact Info) Description 09/03/2020 1:57 PM EDT - 09/03/2020 11:59 PM EDT Hospital Encounter Hematology [place] [address] Erythrocytosis Discharge Disposition: Home Social History Tobacco Use Types Packs/Day Years [...] PM EDT documented as of this encounter Medications at Time of Discharge Medication Sig Dispensed Refills Start Date End Date albuterol 90 mcg/actuation HFA Aerosol Inhaler Inhale 2 puffs into the lungs 4 times daily as needed for Wheezing (VENTOLIN). Use with spacer escitalopram (LEXAPRO) 20 mg Tablet Take 20 mg by mouth daily. escitalopram (Lexapro) 10 mg Tablet Take 10 mg by mouth daily. 04/23/2020 10/30/2021 novoLIN 70/30 Suspension Inject 35 Units subcutaneously 2 times daily. 07/26/2020 10/30/2021 metoprolol succinate XL (Toprol-XL) 50 mg Tablet Sustained Release 24 hrIndications:Tachyc ardia, unspecified Take 1 tablet by mouth daily. 90 tablet 3 07/18/2020 07/16/2021 furosemide (Lasix) 20 mg TabletIndications:Fl uid retention Take 1 tablet by mouth daily. 90 tablet 3 07/16/2020 06/18/2021 spironolactone (ALDACTONE) 50 mg TabletIndications:Ca rdiac cirrhosis,Fluid retention Take 1 tablet by mouth daily. 90 tablet 3 07/16/2020 06/18/2021 fluconazole (Diflucan) 150 mg Tablet 1 tablet by mouth once. Repeat in three days if needed. 2 tablet 2 06/18/2019 12/15/2021 BD Veo Insulin Syringe UF 0.3 mL 31 gauge x 15/64 Syringe 04/18/2019 07/02/2022 valACYclovir (VALTREX) 1 gram Tablet 04/20/2019 07/02/2022 insulin NPH hum/reg insulin hm (NOVOLIN 70/30 U-100 INSULIN SUBQ) Inject 10-16 Units subcutaneously 2 times daily. 12 units in am and 18 units in pm 07/02/2022 estradiol (ESTRACE) 0.01 % (0.1 mg/gram) Cream Place 2 g vaginally as needed. 10/30/2021 HYDROmorphone (DILAUDID) 2 mg Tablet Take 2 mg by mouth every 3 hours as needed for Pain. 10/30/2021 omeprazole (PRILOSEC) 40 mg Capsule, Delayed Release(E.C.) Take 20 mg by mouth daily. 10/30/2021 polyethylene glycol (MIRALAX) 17 gram Powder in Packet Take 17 g by mouth as needed. 12/15/2021 LORazepam (ATIVAN) 0.5 mg Tablet Take 0.5 mg by mouth every 6 hours as needed. 10/30/2021 traZODone (DESYREL) 100 mg tablet Take 100 mg by mouth nightly. 10/30/2021 documented as of this encounter Plan of Treatment Upcoming Encounters Date Type Department Care Team (Late st Contact Info) Description 09/14/2023 11:00 AM EDT Office Visit [place] [address] Mague Jhonson MD [facility] [place] [address] documented as of this encounter Procedures Procedure Name Priority Date/Time Associated Diagnosis Comments HC VENIPUNCTURE Routine 09/03/2020 2:25 PM EDT Erythrocytosis MYELOID SEQ PANEL Routine 09/03/2020 2:2 5 PM EDT HEMOGRAM Routine 09/03/2020 2:25 PM EDT Erythrocytosis DIFFERENTIAL, AUTOMATED Routine 09/03/2020 2:25 PM EDT Erythrocytosis HC PCH EPO (ERYTHROPOIETIN) Routine 09/03/2020 2:25 PM EDT Erythrocytosis HC CBC,PLT & AUTO DIFF Routine 09/03/2020 2:25 PM EDT Erythrocytosis documented in this encounter Results * Myeloid Seq Panel (09/03/2020 2:25 PM EDT) Blood 09/03/2020 2:25 PM EDT 09/03/2020 5:44 PM EDT Narrative Resulting Agency Comment Spec In Lab Apurva Julio MD CHEMISTRY ORDERA BLES [facility] [place] [address] * (ABNORMAL) Differential, Automated (09/03/2020 2:25 PM EDT) Neutrophils % 61.6 % [facility] Neutr Abs (ANC) 6.66(H) 1.70 - 6.10 x10(3)/mc L [facility] Lymphocytes % 27.9 % [facility] Lymphocytes Abs 3.0 0.9 - 3.2 x10(3)/mc L [facility] Monocytes % 8.2 % [facility] Monocyte Abs 0.9 0.3 - 0.9 x10(3)/[facility] Eosinophils % 1.4 % [facility] Eosinophils Abs 0.2 0.0 - 0.4 x10(3)/[facility] Basophils % 0.5 % [facility] Basophils Abs 0.0 0.0 - 0.1 x10(3)/[facility] Immature Gran % 0.40 % [facility] Comment: Immature granulocytes(IG's)percentage and absolute count will include metamyelocytes, myelocytes, and promyelocytes. Blood smears from CBCs yielding IG's will be scanned manually for concordance. If this scan disagrees with the automated IG or if promyelocytes are noted, a manual differential will be performed. Ashley Gran Abs 0.04 0.00 - 0.04 x10(3)/[facility] LAB[facility] Blood 09/03/2020 2:25 PM EDT 09/03/2020 2:47 PM EDT Narrative Resulting Agency Comment Spec In Lab Apurva Julio MD HEMATOLOGY ORDER DENISHA [facility] [place] [address] * (ABNORMAL) Hemogram (09/03/2020 2:25 PM EDT) WBC 10.8(H) 4.0 - 9.5 x10(3)/[facility] LAB[facility] RBC 5.67(H) 4.00 - 5.21 x10(6)/[facility] Hemoglobin 15.6(H) 11.7 - 15.5 gm/dL [facility] Hematocrit 46.9(H) 35.7 - 45.8 % [facility] MCV 82.7 82.6 - 94.4 fL [facility] MCH 27.5 27.1 - 32.0 pg [facility] MCHC 33.3 31.7 - 35.0 gm/dL [facility] Platelets 347 145 - 357 x10(3)/[facility] LABOR[facility] RDWSD 48.6(H) 37.0 - 46.0 [facility] LABORAT[facility] RDWCV 16.5(H) 11.5 - 14.1 % [facility] MPV 10.0 7.6 - 12.9 [facility] LAB[facility]ORY nRBC % Auto 0.0 % [facility] nRBC Abs Auto 0.000 0.000 - 0.000 x10(3)/[facility] LAB[facility] Blood 09/03/2020 2:25 PM EDT 09/03/2020 2:47 PM EDT Narrative Resulting Agency Comment Spec In Lab Apurva Julio MD HEMATOLOGY ORDER DENISHA Performing Organization Address City/[facility] Co de Phone Number [facility] [place] [address] * Erythropoietin Level (09/03/2020 2:25 PM EDT) [facility] Erythropoietin 6.1 2.6 - 18.5 mIU/mL [facility] Comment: Test Performed by: [facility] [address] Sr. Vendor Management Associate: Oh Parker M.D. Ph.D.; CLIA# [id number] Blood 09/03/2020 2:25 PM EDT 09/03/2020 3:28 PM EDT Apurva Julio MD CHEMISTRY ORDERA BLES Performing Organization Address [facility]/ZIP Co de Phone Number [facility] [place] [address] * JAK2 with reflex to Myeloid Panel (09/03/2020 2:25 PM EDT) [facility] JAK2 Report JAK2 V617F Somatic Variant Genotyping RESULTS: The JAK2 V617F somatic variant is NOT DETECTED. Specimen type: Blood Indication: Erythrocytosis INTERPRETATION: ??The absence of the JAK2 V617F variant does not exclude the diagnosis of a myeloproliferative neoplasm (MPN). While approximately 95% of polycythemia vera (PV) cases are associated with the V617F variant, 2-5% of PV cases have variants in exon 12 of JAK2. Additionally, V617F is present in 50-60% of essential thrombocythemia (ET) and primary myelofibrosis (PMF) cases. Further interpretation of this finding must be made in the context of any additional testing and the complete hematopathologic and clinical presentation. METHOD: A region of the Janus kinase 2 (JAK2) gene including the V617 codon is amplified by PCR in the presence of 5? hydrolysis probes capable of detecting and distinguishing between the normal reference sequence ([id number]) and the V617F variant sequence encoding the V617F variant ([id number]:c.184 9G>T; [id number]:p.Val6 17Phe). The analytic sensitivity of this test permits detection of low-level V617F variants present in little as 5% of the total JAK2 DNA. Genomic DNA used in this testing was isolated from either peripheral blood or bone marrow as indicated above. LIMITATIONS AND DISCLAIMERS: Although unlikely, additional rare variants (germline or somatic; benign or pathogenic; known or unknown), have the potential to interfere with the performance of this test, producing false negative or false positive results. When genotyping results are not consistent with other clinical observations or test results, additional testing should be considered. This test was developed and its performance characteristics determined by the [facility] at [facility] It has not been cleared or approved by the FDA. The laboratory is regulated under CLIA as qualified to perform high-complexity testing. This test is used for clinical purposes. It should not be regarded as investigational or for research. [facility] Comment: [VERIFIED DATE]09.10.20 Verified By:Ermelinda Ortiz, Jeffry Mckee Molecular Pathologist (Electronic Signature) Blood 09/03/2020 2:25 PM EDT 09/03/2020 5:44 PM EDT Narrative Resulting Agency Comment Spec In Lab Apurva Julio MD HEMATOLOGY ORDER DENISHA [facility] [place] [address] documented in this encounter Visit Diagnoses Diagnosis Erythrocytosis Polycythemia, secondary documented in this encounter Care Teams Tap Grinder Relationship Specialty Start Date End Date Noemi Sharma APRN [address] [place] [address] PCP - General Family Medicine 07/28/20 documented as of this encounter
--- OUTSIDE RECORDS SUMMARY | 2023-09-06 01:38 | XMS_ITS | Encounter Summary ---
Author Organization [facility] Address [place] [address] Care Team Providers Care Production Sorter Name Role Phone Noemi Sharma JANNA Primary Care Provider [phone] Reason for Visit * Reason Comments Medication Refill Encounter Details Date Type Department Care Team (Late st Contact Info) Description 10/17/2021 Refill Cardiology at [address] [address] Cornelius Sullivan II, MD [facility] [place] [address] Medication Refill Social History Tobacco Use Types [...] Miscellaneous Notes * Telephone Encounter - Win Kim RN - 10/19/2021 8:53 AM EDT Images from the original note were not included. Requested Prescriptions Pending Prescriptions Disp Refills ??? atorvastatin (Lipitor) 20 mg Tablet [Pharmacy Med Name: ATORVASTATIN 20 MG TABLET] 90 tablet PRN Sig: TAKE ONE TABLET BY MOUTH EVERY DAY Received an electronic prescription refill request for above Lipitor from the [facility], [place], [place]. Refill request for 90 days with 3 refills advanced, anticipating scheduled follow up with Dr. Homer Dobbs 12/04/2021. Reviewed Epic record and last office note from Dr. Sullivan dated 04/22/2021. ?? Plan: 1. Continue current medications 2. Review her recent cholesterol blood work when available 3. Follow-up in the clinic in 6 months ?? Cornelius Sullivan MD (From [facility]): Refill prepped and forwarded to Provider for authorization Ritchie Kim RNtechnology coordinator Team Nurse [facility] Cardiology documented in this encounter Plan of Treatment Upcoming Encounters Date Type Department Care Team (Late st Contact Info) Description 09/14/2023 11:00 AM EDT Office Visit [place] [address] Mague Johnson MD [facility] DR ENDOCRINOLOG[place] [address] documented as of this encounter Visit Diagnoses Diagnosis Hyperlipidemia, unspecified hyperlipidemia type documented in this encounter Care Teams Production Sorter Relationship Specialty Start Date End Date Noemi Sharma APRN [address] [place] [address] PCP - General Family Medicine 07/28/20 documented as of this encounter
--- OUTSIDE RECORDS SUMMARY | 2023-09-06 01:38 | XMS_ITS | Encounter Summary ---
Author Organization [facility] Address [facility] [place] [address] Care Team Providers Care Gyro Mechanic Name Role Phone Noemi Sharma APRN Primary Care Provider [phone] [phone] Encounter Details Date Type Department Care Team (Latest Contact Info) Description 03/25/2022 Travel Social History Tobacco Use Types Packs/Day [...] 11:00 AM EDT Office Visit [place] [address] Mague Johnson MD [facility] [place] [address] documented as of this encounter Visit Diagnoses Not on filedocumented in this encounter Care Teams Gyro Mechanic Relationship Specialty Start Date End Date Noemi Sharma APRN [address] [place] [address] PCP - General Family Medicine 07/28/20 documented as of this encounter
--- OUTSIDE RECORDS SUMMARY | 2023-09-06 01:38 | XMS_ITS | Encounter Summary ---
Author Organization [facility] Address [facility] [place] [address] Care Team Providers Care Boring Mill Set Up Operator Name Role Phone Noemi Sharma JANNA Primary Care Provider [phone] [phone] Reason for Visit * Reason Comments Medication Refill Encounter Details Date Type Department Care Team (Late st Contact Info) Description 07/13/2021 Refill Cardiology at [address] [address] Cornelius Sullivan II, MD [facility] [place] [address] Medication Refill Social History Tobacco Use Types [...] encounter Miscellaneous Notes * Telephone Encounter - Breonna Chinchilla RN - 07/14/2021 6:47 AM EDT NUHA 04-22-21 Plan: 1. Continue current medications 2. Review her recent cholesterol blood work when available 3. Follow-up in the clinic in 6 months ?? Cornelius Sullivan MD Requested Prescriptions Pending Prescriptions Disp Refills ??? metoprolol succinate XL (Toprol-XL) 50 mg Tablet Sustained Release 24 hr [Pharmacy Med Name: METOPROLOL SUCC ER 50 MG TAB] 90 tablet 3 Sig: TAKE ONE TABLET BY MOUTH EVERY DAY Breonna Chinchilla RN 4A Cardiology documented in this encounter Plan of Treatment Upcoming Encounters Date Type Department Care Team (Late st Contact Info) Description 09/14/2023 11:00 AM EDT Office Visit [place] [address] Mague Johnson MD [facility] [place] [address] documented as of this encounter Visit Diagnoses Diagnosis Tachycardia, unspecified documented in this encounter Care Teams Boring Mill Set Up Operator Relationship Specialty Start Date End Date Noemi Sharma APRN [address] [place] [address] PCP - General Family Medicine 07/28/20 documented as of this encounter
--- OUTSIDE RECORDS SUMMARY | 2023-09-06 01:38 | XMS_ITS | Encounter Summary ---
Author Organization [facility] [place] [address] Care Team Providers Care Fractionating Still Operator Name Role Phone Noemi Sharma APRN Primary Care Provider [phone] Encounter Details Date Type Department Care Team (Late Contact Info) Description 03/08/2022 Ancillary Procedure [place] [id number] Noemi Sharma APRN [address] [place], [place] [address] Social History Tobacco Use Types Packs/Day Years [...] 11:00 AM EDT Office [place] [address] Mague Johnson MD [facility] [place] [address] documented as of this encounter Procedures Procedure Name Priority Date/Time Associated Diagnosis Comments FILM LIBRARY STORAGE ONLY CT ABDOMEN AND PELVIS Routine 03/08/2022 12:00 AM EST documented in this encounter Results * Film Library- Storage Only CT Abdomen & Pelvis (03/08/2022 12:00 AM EST) Narrative [facility] - 03/12/2022 12:39 PM EST This exam is auto-finalizing. It's purpose is for storage only. Noemi Sharma APRN [place] FILM LIBRARY ORDERABLES Performing Organization Address City/State/[facility] Co de Phone Number [place], [place] documented in this encounter Visit Diagnoses Not on filedocumented in this encounter Care Teams Fractionating Still Operator Relationship Specialty Start Date End Date Noemi Sharma APRN [address] [place] [address] PCP - General Family Medicine 07/28/20 documented as of this encounter
--- OUTSIDE RECORDS SUMMARY | 2023-09-06 01:38 | XMS_ITS | Encounter Summary ---
Author Organization [facility] [place] [address] Care Team Providers Care Autotransfusionist Name Role Phone Bernadette Childs MD Primary Care Provider [phone] Encounter Details Date Type Department Care Team (Late st Contact Info) Description 07/18/2020 Telephone Cardiology at [address] [phone] Win Kim, RN Social History Tobacco Use [...] Telephone Encounter - Win Kim RN - 07/18/2020 11:55 AM EDT Patient also asked that her recommended TTE (currently scheduled for 09/15/2020) be scheduled on as her follow up with Dr. Sullivan or one of the Associate Providers. Cites [address]. Note routed to [place] [facility] [place] as per patient request. Ritchie Kim RNfield service technician Team Nurse [facility] Ambulatory Cardiology * Telephone Encounter - Win Kim RN - 07/18/2020 11:44 AM EDT Noted two separate messages from Ms. Fernández, addressed via [employer] to Dr. Sullivan. Call placed on his behalf to address patient questions and concerns. Pleasant connection. In brief: Reviewed Dr. Sullivan' note dated 07/16/2020. Reviewed recommended dosing of Toprol as below. Increase Toprol to 50 mg daily Noted renewed prescription for Spironolactone already advanced by Dr. Sullivan on 07/16/2020. Identifies the [facility] [place], [place] as her preferred site. Requested Prescriptions Pending Prescriptions Disp Refills ??? metoprolol succinate XL (Toprol-XL) 50 mg Tablet Sustained Release 24 hr 90 tablet 3 Sig: Take 1 tablet by mouth daily. Refill request for 90 days with 3 refills advanced. Reviewed recent EKG, and follow up plan included in Dr. Sullivan' office note. All questions answered to patient's expressed satisfaction and understanding. Ritchie Kim field service technician Team Nurse [facility] documented in this encounter Plan of Treatment Upcoming Encounters Date Type Department Care Team (Late st Contact Info) Description 09/14/2023 11:00 AM EDT Office [place] [address] Mague Johnson MD [facility] [place] [address] documented as of this encounter Visit Diagnoses Diagnosis Tachycardia, unspecified documented in this encounter Care Teams Autotransfusionist Relationship Specialty Start Date End Date Bernadette Childs MD [address] [place] [address] PCP - General 04/03/12 07/27/20 documented as of this encounter
--- OUTSIDE RECORDS SUMMARY | 2023-09-06 01:38 | XMS_ITS | Encounter Summary ---
Author Organization [facility] Address [facility] [place] [address] Care Team Providers Care Crepe Box Tender Name Role Phone Noemi Sharma APRN Primary Care Provider [phone] Reason for Visit * Consultation (Routine) - Closed Specialty Diagnoses / Procedures Referred By Víctor thomas Referred To Contact Endocrinology Diagnoses Type 2 diabetes mellitus without complications Noemi Sharma APRN [address] [place] [address] [facility] Endocrinology [address] [place] [id number] Referral ID Status Reason Start Date Expiration Date V isits Requested Visits Authorized [id number] Closed Consult, [facility] & [facility] PCP Updated and/or Approved 07/17/2020 07/17/2021 12 12 Encounter Details Date Type Department Care Team (Latest Contact Info) Description 09/26/2020 3:00 PM EDT TH Visit (TeleHealth) [place] [phone] Mague Johnson MD [facility] [place] [address] Type 2 diabetes mellitus, uncontrolled, with neuropathy; Vitamin D insufficiency; Cardiac cirrhosis Social History Tobacco Use Types Packs/Day Years [...] - Temperature - - Respiratory Rate 12 09/26/2020 3:08 PM EDT Oxygen Saturation - - Inhaled Oxygen Concentration - - Weight 99.8 kg (220 lb) 09/26/2020 3:08 PM EDT Height 157.5 cm (5' 2) 09/26/2020 3:08 PM EDT Body Mass Index 40.24 09/26/2020 3:08 PM EDT documented in this encounter Patient Instructions * Patient Instructions* Mague Johnson MD - 09/26/2020 3:00 PM EDT Recommendation: 1. Medication: Patient will start taking ozempic pen 0.25 mg sc weekly for 4 weeks, then 0.5 mgc sc weekly for 4 weeks and then will switch to 1 mg pen weekly as tolerated. This will help reduce weight and cardiovascular outcomes for her with diabetes, CHF and cardiac cirrhosis. To also start glimiperide 4 mg 1-2 tab daily. To hold if low BG<80 or NPO To taper 70/30 mis insulin from 35u to 20-25u 2x/day when she starts ozempic cisneros and glimiperide toavoid low BG and allow her to titrate insulin by 2-5u if needed to keep BG at target of 80-180 range. Target A1c <7% safely without too high or low BG. *Intlerant to metformin and Jardiance due to GI issues To continue all other medications. 2. Monitoring: [...] 71 with CAD and patient is currently NOT meeting this goal. To follow with PCP and stack yield engineer further for her lipid issue. 5. Lab: to check lab for A1c, c-peptide, BMP, and 25vitamin D at [facility] lab soon (non-fasting is ok). Orders Placed This Encounter Procedures ??? Hemoglobin A1c ??? C-peptide ??? Vitamin D, 25-Hydroxy ??? Basic Metabolic Panel (non-fasting) We will let patient know test lab test results and adjust medication if needed during this interim. 6. RTC: Next visit in 2-3 months- ok to add to see me on Tue12/19/20 at 3p in person so we can help adjust DM medication regimen further. documented in this encounter Progress Notes * Mague Johnson MD - 09/26/2020 3:00 PM EDT New Diabetes Evaluation Date of Consultation: 09/26/2020 Patient: Name: Teresita Fernández : 1965 PCP: Noemi Sharma APRN Reason for Consult: Teresita Fernández presents to establish diabetes care in consultation for Dr Noemi Sharma APRN. I have reviewed the available records, interviewed and examined the patient. Patient verbally consents to this telehealth visit and understands that this visit may be billed, similar to a clinic office visit. I provided care to the patient today via VDO call. The total time associated with this visit, chartreview, documentation, and coordination of care was 63 minutes. Brief History of Present Illness: Teresita Fernández [...] smoking (02/24ppd x 15 yrs) seen by patent lawyer, machinist class b (Dr. Farnsworth) and stack yield engineer (Dr. Sullivan) here. She has had diabetes since young age in her 30s Current outpatient diabetes regimen: Medications: 70/30 mix 35 units 2x/day BGFS Monitoring is done 2-3x times a day, ranging between 100s-300s mg/dl over the past 2 weeks. Used to get low to 59 prior but lately it was simply high. Most recent HbA1c was done on 07/17/20 and was 8.1%, suggesting an average glucose of 185 mg/dL for the past 8 weeks. Typical diet is: 3 meals and 0-1 [...] unable to take tylenol, etc. ROS: Constitutional: +++ fatigue, No recent weight changes No polyuria & polydipsia Endocrine: No thyroid [...] to Visit Medication Sig Dispense Refill ??? novoLIN 70/30 Suspension Inject 35 Units subcutaneously 2 times daily. ??? metoprolol succinate XL (Toprol-XL) 50 mg Tablet Sustained Release 24 hr Take 1 tablet by mouthdaily. 90 tablet 3 ??? furosemide (Lasix) 20 mg Tablet Take 1 tablet by mouth daily. 90 tablet 3 ??? spironolactone (ALDACTONE) 50 mg Tablet Take 1 tablet by mouth daily. 90 tablet 3 ??? insulin NPH hum/reg [...] Take 100 mg by mouth nightly. ??? escitalopram (Lexapro) 10 mg Tablet Take 10 mg by mouth daily. ??? fluconazole (Diflucan) 150 mg Tablet 1 tablet by mouth once. Repeat in three days if needed. (Patient not taking: Reported on 09/03/2020) 2 tablet 2 ??? BD Veo Insulin Syringe UF 0.3 mL 31 gauge x Syringe ??? valACYclovir (VALTREX) 1 gram Tablet No current facility-administered medications on file prior [...] Last attempt to quit: 02/20/1996 Years since quittin.6 ??? Smokeless tobacco: Never Used Vaping Use ??? Vaping Use: Never used Substance and Sexual Activity ??? Alcohol use: No ??? Drug use: No ??? Sexual activity: Yes Partners: Male Other Topics Concern ??? Not on file Social History Narrative ??? Not on file Social Determinants of Health Financial Resource Strain: ??? Difficulty of Paying Living Expenses: Food Insecurity: ??? Worried About Running Out of Food in the Last Year: ??? Ran Out of Food in the Last Year: Transportation Needs: ??? Lack of Transportation (Medical): ??? Lack of Transportation (Non-Medical): Physical Activity: ??? Days of Exercise per Week: ??? Minutes of Exercise per Session: FAMILY HISTORY Family History Problem Relation Age of Onset ??? Type 1 Diabetes Other ??? Autoimmune Disorder Other ??? Heart Disease Mother ??? Cerebrovascular Accident Mother 64 ??? Diabetes Mother ??? Diabetes Sister ??? Arthritis Sister ??? Arthritis Brother ??? Diabetes Brother ??? Arthritis Brother ??? Diabetes Brother ??? Diabetes Brother Physical Exam Resp 12 Ht 157.5 cm (5' 2) Wt 99.8 kg (220 lb) BMI 40.24 kg/m?? Appearance: obese, very pleasant, NAD HEENT: PERRLA, EOMI, no lid lag or exophthalmos Neck: supple, no goiter visible Ext: normal skin appearance no edema Neuro: no weakness, non-focal, no facial asymmetry. 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 She also has HTN, HLP, 2ry polycy themia from smoking (02/24 ppd x 15 yrs) seen by patent lawyer, machinist class b (Dr. Farnsworth) and stack yield engineer (Dr. Sullivan) here. She has had diabetes since young age in her 30s over 10 yrs ago so we will check lab for baseline c-peptide to see if she still makes endogenous insulin to be able to respond wellto GLP1 analogue which will help her lose weight with better cardiovascular outcomes. Unfortunatelyshannette could not tolerate metformin and Jardiance due to severe GI side effects. We will try glimiperide pill and titrate ozempic pen weekly up gradually and cut back insulin and weight down with goal to keep A1c <7% safely without hypo- or severe hyperglycemia. Recommendation: 1. Medication: Patient will start taking ozempic pen 0.25 mg sc weekly for 4 weeks, then 0.5 mgc sc weekly for 4 weeks and then will switch to 1 mg pen weekly as tolerated. This will help reduce weight and cardiovascular outcomes for her with diabetes, CHF and cardiac cirrhosis. To also start glimiperide 4 mg 1-2 tab daily. To hold if low BG<80 or NPO To taper 70/30 mis insulin from 35u to 20-25u 2x/day when she starts ozempic cisneros and glimiperide toavoid low BG and allow her to titrate insulin by 2-5u if needed to keep BG at target of 80-180 range. Target A1c <7% safely without too high or low BG. *Intlerant to metformin and Jardiance due to GI issues To continue all other medications. 2. Monitoring: [...] 71 with CAD and patient is currently NOT meeting this goal. To follow with PCP and stack yield engineer further for her lipid issue. 5. Lab: to check lab for A1c, c-peptide, BMP, and 25vitamin D at [facility] lab soon (non-fasting is ok). Orders Placed This Encounter Procedures ??? Hemoglobin A1c ??? C-peptide ??? Vitamin D, 25-Hydroxy ??? Basic Metabolic Panel (non-fasting) We will let patient know test lab test results and adjust medication if needed during this interim. 6. RTC: Next visit in 2-3 months- ok to add to see me on Tue12/19/20 at 3p in person so we can help adjust [...] 11:00 AM EDT Office [place] [address] Mague Johnson MD [facility] [place] [address] documented as of this encounter Visit Diagnoses Diagnosis Type 2 diabetes mellitus, uncontrolled, with neuropathy Type II or unspecified type diabetes mellitus with neurological manifestations, uncontrolled Vitamin D insufficiency Unspecified vitamin D deficiency Cardiac cirrhosis Cirrhosis of liver without mention of alcohol documented in this encounter Care Teams Crepe Box Tender Relationship Specialty Start Date End Date Noemi Sharma APRN [address] [place] [address] PCP - General Family Medicine 07/28/20 documented as of this encounter
--- OUTSIDE RECORDS SUMMARY | 2023-09-06 01:38 | XMS_ITS | Encounter Summary ---
Author Organization [facility] [place] [address] Care Team Providers Care Bsa Officer Name Role Phone Bernadette Childs MD Primary Care Provider [phone] Reason for Referral * Diagnostic Test (Routine) - Closed Specialty Diagnoses / Procedures Referred By Víctor thomas Referred To Contact Cardiology Diagnoses Constrictive pericarditis Asymmetric septal hypertrophy Procedures Echocardiogram Transthoracic([facility] or [facility]) Cornelius Sullivan II, MD [facility] [address] [facility] [place] [address] Referral ID Status Reason Start Date Expiration Date V isits Requested Visits Authorized [id number] Closed Specialty Service Requested 07/16/2020 07/16/2021 1 1 Encounter Details Date Type Department Care Team (Late st Contact Info) Description 07/16/2020 4:00 PM EDT Office Visit Cardiology at [address] [address] Cornelius Sullivan II, MD [facility] [address] Cardiac cirrhosis; Abnormal LFTs (liver function tests); h/o Constrictive pericarditis; Chronic right-sided heart failure; Other ascites; SOB (shortness of breath); Chest pain, unspecified type; Chronic diastolic congestive heart failure; Hyperlipidemia, unspecified hyperlipidemia type; Tricuspid valve insufficiency, unspecified etiology; BHARATI (obstructive sleep apnea); Asymmetric septal hypertrophy; Fluid retention Social History Tobacco Use Types Packs/Day Years [...] Sign Reading Time Taken Comments Blood Pressure 116/78 07/16/2020 4:02 PM EDT Pulse 104 07/16/2020 4:02 PM EDT Temperature - - Respiratory Rate - - Oxygen Saturation 96% 07/16/2020 4:02 PM EDT Inhaled Oxygen Concentration - - Weight 100.5 kg (221 lb 8 oz) 07/16/2020 4:02 PM EDT Height 157.5 cm (5' 2) 07/16/2020 4:02 PM EDT Body Mass Index 40.51 07/16/2020 4:02 PM EDT documented in this encounter Progress Notes * Cornelius Sullivan II - 07/16/2020 4:00 PM EDT Images from the original note were not included. Patient Name: Teresita Fernández : 1965 Age: 55 y.o. Date of Visit: 07/16/2020 Primary Care Physician: Bernadette Childs MD The patient is a 55 y.o. female [...] diastolic congestive heart failure TTE 05/12/2016: SUMMARY: ?? 1. Patient is [...] valve disease. ? SOB (shortness of breath) May be multifactorial Restrictive lung disease Obesity H/o constrictive pericarditis ??? Chest pain Right and Left Cardiac [...] h/o Constrictive pericarditis S/p Pericardial stripping at [facility] 05-04-13 ??? Ascites ??? Abdominal pain, RUQ (right upper quadrant) ??? Abnormal LFTs (liver function tests) ??? Hyperlipidemia Current medications were reviewed and include: Outpatient Medications Marked as Taking for the 07/16/20 encounter (Office Visit) with Cornelius Sullivan II, MD Medication Sig Dispense Refill ??? fluconazole (Diflucan) 150 mg Tablet 1 [...] INSULIN SUBQ) Inject subcutaneously 2 timesdaily. ??? HYDROmorphone (DILAUDID) 2 mg Tablet Take [...] last saw the patient in clinic on June 07, 2018. At that time she had been able to lose 30 pounds with dieting and had decided not to pursue bariatric surgery. She continued to have exertional dyspnea but was able to climb more than 1 flight of stairs without stopping and to walk on a treadmill at 2-1/2 mph for at least 15 minutes. I was supportive of her plan to lose pounds and continue with her exercise program. No changes in her medications were made. Today in clinic the patient tells me she is doing okay. She feels her symptoms are the same, thatsilvino is able to climb about 1 flight of stairs and able to walk at 2-1/2 miles an hour for about 15 minutes. Unfortunately she says she has started smoking again shortly after the last appointment. She says that the smoking makes her breathing a little worse. Currently she is consuming about a half a pack per day. She is motivated to quit. She has been following her blood pressure and says it has been fine, she has not seen any elevated readings. After her last appointment she was only able tolose about 7 more pounds and has since gained it back. Currently she uses a product called plexus which is a plant-based supplement that lowers her blood sugars. She says that her cholesterol numbers were checked about a month ago by Dr. Laiin She also tells me that she has changed her PCP. She is now going to work with Noemi Sharma, [facility]. Her first visit is tomorrow. ROS: The remainder of a full review of systems is negative. Exam: Vital signs this visit: Vitals: 07/16/20 1602 BP: 116/78 Pulse: (!) 104 SpO2: 96% Weight: 100.5 kg (221 lb 8 oz) Height: 157.5 cm (5' 2) Chest: Clear to auscultation. Cardiac exam: Normal S1 and S2 without rub, murmur, gallop. Carotid upstrokes are brisk. There are no carotid bruits. Jugular venous pressure is not elevated. Abdominal exam is benign without organomegaly, masses, tenderness. Examination of the remedies reveals no edema. Neurologic exam is grossly nonfocal. ECG: Sinus tachycardia. Ventricular rate 104 bpm. Possible left atrial enlargement. Compared with prior tracings no significant change. No results for input(s): WBC, HGB, HCT, PLATELET, NA, K, BUN, CREATININE, HA1C, ALT, CHLPL in the last 720 hours. 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 Her symptoms are stable save for the effects of returning to smoking. She is only smoking 1/2 pack/day and at this level I would advise trying nicotine supplements as needed for the urge to smoke which could be either a lozenge or gum. She has diabetes and needs some adjustments in her diabetic regimen which she will pursue with her PCP tomorrow. She seems to have a resting tachycardia which is slightly higher than usual today. She is already taking Toprol so I have suggested to her that she try doubling the dose to see if it has any effect on her dyspnea. I would also like to check her cholesterol blood work since she is a diabetic and she needs an estimate of her risk of developing coronary disease and a determination on whether or not statins are now advisable. Plan: 1. Increase Toprol to 50 mg daily 2. Nicotine gum or lozenge to assist in smoking cessation 3. Retrieve the results of her most recent cholesterol blood work from Dr. Farrell's office 4. Follow-up in this clinic in 6 months Cornelius Sullivan MD documented in this encounter Plan of Treatment Upcoming Encounters Date Type Department Care Team (Late st Contact Info) Description 09/14/2023 11:00 AM EDT Office [place] [address] Mague Johnson MD [facility] [place] [address] documented as of this encounter Procedures Procedure Name Priority Date/Time Associated Diagnosis Comments EKG 12-LEAD Routine 07/16/2020 4:05 PM EDT Chest pain, unspecified type Cardiac cirrhosis Chronic diastolic congestive heart failure Chronic right-sided heart failure h/o Constrictive pericarditis Hyperlipidemia, unspecified hyperlipidemia type BHARATI (obstructive sleep apnea) SOB (shortness of breath) Tricuspid valve insufficiency, unspecified etiology documented in this encounter Results * ECHO COMPLETE (10/15/2020 11:55 AM EDT) EF 63 HEARTLAB SYSTEM Anatomical Region Laterality Modality Other 10/15/2020 Narrative 10/15/2020 12:31 PM EDT Procedure: ?Transthoracic Echocardiogram Patient: ?MAYE Ovalle ?(Age): 1965(55y) Med Rec#: ? [id number] ?Sex: ?F ? Site Loc: ? [facility] ?Ht / Wt: ??157(cm)/99.99(k Pt. Loc: ?Echo Lab ?BSA: ?1.99 Study Date: ?? 10/15/2020 ?Pt. Type: Outpatient Tape: ? 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 129/81 SUMMARY: 1. The left ventricular chamber size is normal. [...] physiology. 6. See below for additional findings. Findings ? : Study Quality: ? Adequate Left Ventricle: ? The left ventricular chamber size is normal. ?Basal septal hypertrophy is observed. ?There is no evidence of LVOT obstruction. ?No ventricular septal defect is visualized. ?There is normal global left ventricular systolic function. ?The quantitative left ventricular ejection fraction by biplane Aguilar's method is 63%. ?There are no left ventricular segmental wall motion abnormalities. ?The left ventricular diastolic filling pattern is consistent with impaired LV relaxation. ?Doppler assessment is consistent with normal left sided filling pressure. Left Atrium: ? The left atrium is normal in size. Right Ventricle: ? The right ventricle is probably normal in size. ?Right ventricular global systolic function is low normal. ?The estimated pulmonary artery systolic pressure is 28 mmHg. ?The estimated right atrial pressure is 3 mmHg. Right Atrium: ? The right atrium appears normal. Aortic Valve: ? The aortic valve is probably tricuspid. ?There is no evidence of aortic valve thickening. ?Systolic excursion of the aortic valve is normal. ?There is no evidence of aortic valve stenosis. ?There is no evidence of aortic regurgitation. Mitral Valve: ? The mitral valve leaflets are mildly thickened. ?There is mild (1+/4+) mitral regurgitation present. Tricuspid Valve: ? The tricuspid valve appears normal in structure and function. ?There is mild to moderate (1-2+/4+) tricuspid regurgitation present. Pulmonic Valve: ? The pulmonic valve appears normal in structure and function. Pericardium: ? The pericardium appears normal and there is no evidence of a pericardial effusion. Aorta: ? The aortic root is normal in size. ?The ascending aorta is normal in size. Pulmonary Artery: ? The main pulmonary artery appears normal. Venous: ? The inferior vena cava appears normal in size. ?There is a greater than 50% respiratory change in the inferior vena cava dimension. Misc: ? Technically difficult study. ?See remainder of report for additional findings. ?Two-dimensional echo, spectral Doppler and color Doppler performed. Chambers 2D ?Value ?Units (Range) ? IVSd (2D) ? 1.5 ?cm ? LVPWd (2D) ?1 ?cm ? IVS:LVPW ratio (2D) 1.5 ?ratio ? RWT (2D) ?0.93 ? ratio ? RWT PW (2D) ? 0.74 ? ratio ? LVIDd (2D) ?2.7 ?cm ? LVIDs (2D) ?1.9 ?cm ? LVIDd (2D) index ?1.36 ? cm/m2 ? LVIDs (2D) index ?0.96 ? cm/m2 ? LV FS (2D) ?29.63 ?% ? EF Teichholz (2D) ?? 58.67 ?% ? Ao root diameter (2D3 ?cm (2.1 - 3.6) ? Ascending Ao ?2.8 ?cm (2 - 3.5) ? Volumes/Mass ?Value ?Units (Range) ? LA Area 4 CH ?13 ? cm2 (<21) ? RA AREA 4CH ? 10 ? cm2 ? LA ESV BP (MOD) inde15.75 ?ml/m2 ? LV ESV SP 4CH (MOD) 15.9 ? ml ? LV ESV SP 2CH (MOD) 14.8 ? ml ? LV EDV BP ? 41.3 ? ml ? LV ESV BP ? 15.5 ? ml ? LV EDV BP index ? 20.78 ?ml/m2 ? LV ESV BP index ? 7.8 ?ml/m2 ? BP EF (MOD) ? 62.47 ?% ? LV mass (2D) ?101.21 ? g ? LV mass (2D) index ??50.92 ?g/m2 ? Diastolic/Systolic Function ?Value ?Units (Range) ? MV E-wave Vmax ?0.7 ?m/sec ? MV deceleration [id number] ?msec ? MV A-wave Vmax ?0.89 ? m/sec ? MV E:A ratio ?0.79 ? ratio ? LV septal e' Vmax ?? 0.08 ? m/sec ? LV lateral e' Vmax ??0.12 ? m/sec ? LV average e' Vmax ??0.1 ?m/sec ? LV E:e' septal ratio8.79 ? ratio ? LV E:e' lateral rati5.86 ? ratio ? LV average E:e' rati7.03 ? ratio ? Aortic Valve ?Value ?Units (Range) ? LVOT diameter ? 1.9 ?cm ? LVOT Vmax ? 1.01 ? m/sec ? LVOT VTI ?17.7 ? cm ? LVOT peak gradient ??4 ?mmHg ? LVOT mean gradient ??3 ?mmHg ? SV LVOT ? 50.16 ?ml ? Mitral Valve ?Value ?Units (Range) ? MV PHT ?79 ? msec ? MVA (PHT) ? 2.78 ? cm2 ? Tricuspid Valve ?Value ?Units (Range) ? TR Vmax ? 2.51 ? m/sec ? TR peak gradient ?25.2 ? mmHg ? RAP ? 3 ?mmHg ? RVSP ?28 ? mmHg ? This report has been electronically signed by: Joaquin Kessler MD ? 10/15/2020 12:30:34 Images reviewed and interpretation verified [facility] Cardiac Ultrasound Laboratory Procedure Note Joaquin Kessler MD - 10/15/2020 Procedure: Transthoracic Echocardiogram Patient: MAYE Ovalle DOB(Age): 1965(55y) Med Rec#: [id number] Sex: F Site Loc: [facility] Ht / Wt: 157(cm)/99.99(k Pt. Loc: Echo Lab BSA: 1.99 Study Date: 10/15/2020 Pt. 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 The left ventricular chamber size is normal. [...] physiology. 6. See below for additional findings. Findings : Study Quality: Adequate Left Ventricle: The left ventricular chamber size is normal. Basal septal hypertrophy is observed. There is no evidence of LVOT obstruction. No ventricular septal defect is visualized. There is normal global left ventricular systolic function. The quantitative left ventricular ejection fraction by biplane Aguilar's method is 63%. There are no left ventricular segmental wall motion abnormalities. The left ventricular diastolic filling pattern is consistent with impaired LV relaxation. Doppler assessment is consistent with normal left sided filling pressure. Left Atrium: The left atrium is normal in size. Right Ventricle: The right ventricle is probably normal in size. Right ventricular global systolic function is low normal. The estimated pulmonary artery systolic pressure is 28 mmHg. The estimated right atrial pressure is 3 mmHg. Right Atrium: The right atrium appears normal. Aortic Valve: The aortic valve is probably tricuspid. There is no evidence of aortic valve thickening. Systolic excursion of the aortic valve is normal. There is no evidence of aortic valve stenosis. There is no evidence of aortic regurgitation. Mitral Valve: The mitral valve leaflets are mildly thickened. There is mild (1+/4+) mitral regurgitation present. Tricuspid Valve: The tricuspid valve appears normal in structure and function. There is mild to moderate (1-2+/4+) tricuspid regurgitation present. Pulmonic Valve: The pulmonic valve appears normal in structure and function. Pericardium: The pericardium appears normal and there is no evidence of a pericardial effusion. Aorta: The aortic root is normal in size. The ascending aorta is normal in size. Pulmonary Artery: The main pulmonary artery appears normal. Venous: The inferior vena cava appears normal in size. There is a greater than 50% respiratory change in the inferior vena cava dimension. Misc: Technically difficult study. See remainder of report for additional findings. Two-dimensional echo, spectral Doppler and color Doppler performed. Chambers 2D Value Units (Range) IVSd (2D) 1.5 cm LVPWd (2D) 1 cm IVS:LVPW ratio (2D) 1.5 ratio RWT (2D) 0.93 ratio RWT PW (2D) 0.74 ratio LVIDd (2D) 2.7 cm LVIDs (2D) 1.9 cm LVIDd (2D) index 1.36 cm/m2 LVIDs (2D) index 0.96 cm/m2 LV FS (2D) 29.63 % EF Teichholz (2D) 58.67 % Ao root diameter (2D3 cm (2.1 - 3.6) Ascending Ao 2.8 cm (2 - 3.5) Volumes/Mass Value Units (Range) LA Area 4 CH 13 cm2 (<21) RA AREA 4CH 10 cm2 LA ESV BP (MOD) inde15.75 ml/m2 LV ESV SP 4CH (MOD) 15.9 ml LV ESV SP 2CH (MOD) 14.8 ml LV EDV BP 41.3 ml LV ESV BP 15.5 ml LV EDV BP index 20.78 ml/m2 LV ESV BP index 7.8 ml/m2 BP EF (MOD) 62.47 % LV mass (2D) 101.21 g LV mass (2D) index 50.92 g/m2 Diastolic/Systolic Function Value Units (Range) MV E-wave Vmax 0.7 m/sec MV deceleration [id number] msec MV A-wave Vmax 0.89 m/sec MV E:A ratio 0.79 ratio LV septal e' Vmax 0.08 m/sec LV lateral e' Vmax 0.12 m/sec LV average e' Vmax 0.1 m/sec LV E:e' septal ratio8.79 ratio LV E:e' lateral rati5.86 ratio LV average E:e' rati7.03 ratio Aortic Valve Value Units (Range) LVOT diameter 1.9 cm LVOT Vmax 1.01 m/sec LVOT VTI 17.7 cm LVOT peak gradient 4 mmHg LVOT mean gradient 3 mmHg SV LVOT 50.16 ml Mitral Valve Value Units (Range) MV PHT 79 msec MVA (PHT) 2.78 cm2 Tricuspid Valve Value Units (Range) TR Vmax 2.51 m/sec TR peak gradient 25.2 mmHg RAP 3 mmHg RVSP 28 mmHg This report has been electronically signed by: Joaquin Kessler MD 10/15/2020 12:30:34 Images reviewed and interpretation verified [facility] Cardiac Ultrasound Laboratory Cornelius Sullivan II, MD ECHO ORDERABLES * EKG 12 Lead (07/16/2020 4:05 PM EDT) Ventricular rate 104 BPM MUSE SYSTEM Atrial Rate 104 BPM MUSE SYSTEM P-R Interval 146 ms MUSE SYSTEM QRS Duration 74 ms MUSE SYSTEM Q-T Interval 342 ms MUSE SYSTEM QTC Calculated (Bezet) 449 ms MUSE SYSTEM Calculated P [place] 19 degrees MUSE SYSTEM Calculated R [place] 64 degrees MUSE SYSTEM Calculated T [place] 7 degrees MUSE SYSTEM INTERPRETATION Sinus tachycardia Possible Left atrial enlargement Borderline ECG When compared with ECG of 07-JUN-2018 15:49, No significant change was found Confirmed by MD Sue, Giuliano ([id number]) on 07/16/2020 4:40:37 PM MUSE SYSTEM 07/16/2020 4:05 PM EDT 07/16/2020 4:40 PM EDT Cornelius Sullivan II, MD ECG ORDERABLES MUSE SYSTEM documented in this encounter Visit Diagnoses Diagnosis Cardiac cirrhosis Cirrhosis of liver without mention of alcohol Abnormal LFTs (liver function tests) Other abnormal blood chemistry h/o Constrictive pericarditis Constrictive pericarditis Chronic right-sided heart failure Congestive heart failure, unspecified Other ascites SOB (shortness of breath) Shortness of breath Chest pain, unspecified type Chronic diastolic congestive heart failure Chronic diastolic heart failure Hyperlipidemia, unspecified hyperlipidemia type Tricuspid valve insufficiency, unspecified etiology BHARATI (obstructive sleep apnea) Obstructive sleep apnea (adult) (pediatric) Asymmetric septal hypertrophy Other hypertrophic cardiomyopathy Fluid retention Other fluid overload h/o Constrictive pericarditis Constrictive pericarditis Asymmetric septal hypertrophy Other hypertrophic cardiomyopathy documented in this encounter Care Teams Bsa Officer Relationship Specialty Start Date End Date Bernadette Childs MD [address] [place] [address] 1 [place] [address] PCP - General 04/03/12 07/27/20 documented as of this encounter
--- OUTSIDE RECORDS SUMMARY | 2023-09-06 01:38 | XMS_ITS | Encounter Summary ---
Author Organization [facility] [place] [address] Care Team Providers Care Senior Web Developer Name Role Phone Bernadette Childs MD Primary Care Provider [phone] Encounter Details Date Type Department Care Team (Late st Contact Info) Description 10/30/2018 Orders Only Obstetrics [place] [address] Maricarmen Rodriguez MD [facility] [address] OBSTETRICS & [place] [address] Social History Tobacco Use Types Packs/Day Years [...] as of this encounter Progress Notes * Maricarmen Rodriguez MD - 10/30/2018 5:51 PM EDT Biopsy neg for LP, will try empiric treatment for cervicitis, and if no improvement will consider triamcinolone injection directly into the exocervix. documented in this encounter Plan of Treatment Upcoming Encounters Date Type Department Care Team (Late st Contact Info) Description 09/14/2023 11:00 AM EDT Office [place] [address] Mague Johnson MD [facility] [place] [address] documented as of this encounter Visit Diagnoses Not on filedocumented in this encounter Care Teams Senior Web Developer Relationship Specialty Start Date End Date Bernadette Childs MD [address] [place] [address] [address] [place] [address] PCP - General 04/03/12 07/27/20 documented as of this encounter
--- OUTSIDE RECORDS SUMMARY | 2023-09-06 01:38 | XMS_ITS | Encounter Summary ---
Author Organization [facility] [place] [address] Care Team Providers Care Collar Packer Name Role Phone Bernadette Childs MD Primary Care Provider [phone] Encounter Details Date Type Department Care Team (Late st Contact Info) Description 05/06/2020 Ancillary Procedure [place] [id number] Noemi Sharma APRN [address] [place] [address] Social History Tobacco Use Types Packs/Day Years [...] 11:00 AM EDT Office [place] [phone] Mague Johnson MD [facility] [place] [address] documented as of this encounter Procedures Procedure Name Priority Date/Time Associated Diagnosis Comments FILM LIBRARY STORAGE ONLY ULTRASOUND STUDY Routine 05/06/2020 12:00 AM EDT documented in this encounter Results * Film Library- Storage Only Ultrasound Study (05/06/2020 12:00 AM EDT) Narrative [facility] - 03/12/2022 12:43 PM EST This exam is auto-finalizing. It's purpose is for storage only. Noemi Sharma APRN IMG FILM LIBRARY ORDERABLES [place], [place] documented in this encounter Visit Diagnoses Not on filedocumented in this encounter Care Teams Collar Packer Relationship Specialty Start Date End Date Bernadette Childs MD [address] [place] [address] [address] [place] [address] PCP - General 04/03/12 07/27/20 documented as of this encounter
--- OUTSIDE RECORDS SUMMARY | 2023-09-06 01:38 | XMS_ITS | Encounter Summary ---
Author Organization [facility] Address [facility] [place] [address] Care Team Providers Care Log Turner Name Role Phone Noemi Sharma APRN Primary Care Provider [phone] Reason for Visit * Reason Comments Advice Only * Consultation (Routine) - Closed Specialty Diagnoses / Procedures Referred By Víctor thomas Referred To Contact Hematology and Oncology Diagnoses Secondary polycythemia polycythemia Noemi Sharma APRN [address] [place] [address] [facility] Hem Onc [address] [place] [address] Referral ID Status Reason Start Date Expiration Date V isits Requested Visits Authorized [id number] Closed Consult, Test & Treat Connection [facility] PCP Updated and/or Approved 08/01/2020 08/01/2021 12 12 Encounter Details Date Type Department Care Team (Late st Contact Info) Description 09/03/2020 1:00 PM EDT Office Visit Hematology [place] [address] Apurva Julio MD [facility] HEMATOLOGY/[place] [address] Erythrocytosis; Other specified abnormal findings of blood chemistry Social History Tobacco Use Types Packs/Day Years [...] Sign Reading Time Taken Comments Blood Pressure 118/83 09/03/2020 12:44 PM EDT Pulse 93 09/03/2020 12:44 PM EDT Temperature 36.8 ??C (98.2 ??F) 09/03/2020 1 2:44 PM EDT Respiratory Rate 20 09/03/2020 12:4 4 PM EDT Oxygen Saturation 98% 09/03/2020 12: 44 PM EDT Inhaled Oxygen Concentration - - Weight 105.1 kg (231 lb 9.6 oz) 021 12:44 PM EDT Height 157.8 cm (5' 2.13) 09/03/2020 1 2:44 PM EDT Body Mass Index 42.19 09/03/2020 12:44 PM EDT documented in this encounter Progress Notes * Apurva Paredes MD - 09/03/2020 1:00 PM EDT Images from the original note were not included. HEMATOLOGY CONSULTATION VISIT NOTE DATE OF VISIT : 09/03/20 REASON FOR VISIT: Teresita Fernández is a 55 y.o. female referred by Noemi Capellan for evaluation of erythrocytosis. The history is obtained from the patient, and I also have reviewed all the available medical records provided by the referring physician and located in the electronic medical records. HISTORY OF PRESENT ILLNESS Teresita Fernández is [...] ?? Smokes 1/2ppd ?? BHARATI INTERIM Hx: In office today, Teresita Fernández is here for initial consultation. She was diagnosed with BHARATI at [facility] 2-3 years ago. She was on CPAP, but hasn't been using it for 2 years now. She takes several OTC supplements, Joni X, plexus etc. - all plant based. - Have intermittent headaches - not new -No erythromelalgia symptoms - No pruritus; - No B symptoms; - No active cardiac/resp/GI issues; Rest of the ROS: Negative REVIEW OF SYSTEMS Constitutional --Energy level: good --Pain: none --Fevers/chills/sweats: No --Unexpected weight loss or gain: No Eyes - No change in vision Ears, nose, throat - No change hearing, no oral or throat pain or thrush Cardiovascular --SOB: No -- Palpitations: No --chest pain: No Respiratory --Cough: No --SOB, FIGUEREDO: No Gastrointestinal --Appetite: good --Nausea/vomiting: No - Diarrhea/constipation: No - Abd pain: No Genitourinary --Dysuria or hematuria: No Musculoskeletal --Muscle pain or weakness: No --Joint pain or swelling: No Immune System --Recent infections: No Hematology/Lymph --Bruising/bleeding/melena: No --Enlarged nodes or other masses: No Skin --Rashes or petechiae: No Neuro - No Psych: -Anxiety, depressed mood, suicidal or homicidal ideation : No Other ROS: All negative PROBLEM LIST Patient Active Problem List Diagnosis [...] pericarditis Overview Note: S/p Pericardial stripping [place] [facility] [place]04- ??? Ascites ??? Abdominal pain, RUQ (right upper quadrant) ??? Abnormal LFTs (liver function tests) ??? Hyperlipidemia PAST SURGICAL Hx: Past Surgical History: Procedure Laterality Date ??? CHOLECYSTECTOMY ??? COLONOSCOPY ??? PRO LAP, CHOLECYSTECTOMY/GRAPH 02/19/2013 LAPAROSCOPIC CHOLECYSTECTOMY WITH CHOLANGIOGRAM performed by Octaviano Torrez MD at [facility] MA[facility] OR ??? PRO UNLISTED LAPAROSCOPIC PX LVR 02/19/2013 LAPAROSCOPIC LIVER BIOPSY performed by Octaviano Torrez MD at [facility] MA[facility] OR ??? UPPER GASTROINTESTINAL ENDOSCOPY MEDICATIONS ??? novoLIN 70/30 Suspension ??? metoprolol succinate XL (Toprol-XL) 50 mg Tablet Sustained Release 24 hr ??? furosemide (Lasix) 20 mg Tablet ??? spironolactone (ALDACTONE) 50 mg Tablet ??? insulin NPH hum/reg insulin hm (NOVOLIN 70/30 U-100 INSULIN SUBQ) ??? estradiol (ESTRACE) 0.01 % (0.1 mg/gram) Cream ??? albuterol 90 mcg/actuation HFA Aerosol Inhaler ??? omeprazole (PRILOSEC) 40 mg Capsule, Delayed Release(E.C.) ??? polyethylene glycol (MIRALAX) 17 gram Powder in Packet ??? traZODone (DESYREL) 100 mg tablet ??? escitalopram (Lexapro) 10 mg Tablet ??? fluconazole (Diflucan) 150 mg Tablet ??? BD Veo Insulin Syringe UF 0.3 mL 31 gauge x Syringe ??? valACYclovir (VALTREX) 1 gram Tablet ??? HYDROmorphone (DILAUDID) 2 mg Tablet ??? escitalopram (LEXAPRO) 20 mg Tablet ??? LORazepam (ATIVAN) 0.5 mg Tablet ALLERGIES/ADR Allergies Allergen Reactions ??? Latex Rash ??? Metformin Diarrhea ??? Scopolamine Itching and Rash Itching erythematous rash resolved with scop patch removal. ??? Adhesive Bandage Localized Reaction ??? Amoxicillin Trihydrate Rash ??? Penicillins Rash ??? Sulfa (Sulfonamide Antibiotics) Rash ??? Varicella-Zoster Virus Glycoprotein E, Recombinant Other reaction(s): Local reaction- redness and swelling PERSONAL and SOCIAL HISTORY ?? Lives in: [place], [place] (2hr from [facility]). [facility] is the closest, ?? Work history: [...] ??? Diabetes Brother PHYSICAL EXAM VITAL SIGNS: Blood pressure 118/83, pulse 93, temperature 36.8 ??C (98.2 ??F), temperature source Temporal, resp. rate 20, height 157.8 cm (5' 2.13), weight 105.1 kg (231 lb 9.6 oz), SpO2 98 %. ECOG PS:0 GENERAL: Teresita Fernández is a well-appearing 55 y.o. female in no acute distress. HEENT: Eyes: b/l PERRL, no conjunctival pallor , no scleral icterus; Sinuses: non-tender; Oropharynx : moist , clear, No lesions, No thrush. ENDOCRINE: No thyromegaly palpated. CARDIOVASCULAR: Heart with regular rate and rhythm without S3,S4 or murmurs. PULMONARY: Lungs are clear to auscultation without rales, rhonchi or wheezing. GASTROINTESTINAL: Abdomen soft and non-tender without palpable masses or hepatosplenomegaly. MUSCULOSKELETAL: Neck supple with full ROM. No spine or CVA tenderness. SKIN: No rashes, bruises or petechiae. NEUROLOGICAL: Alert and oriented to person, place and time; No focal neurological deficits; EXT: No peripheral edema. PSYCHIATRIC: normal affect and mood LABORATORY No results found for this or any previous visit (from the past 72 hour(s)). RADIOLOGY - None ASSESSMENT & PLANS Teresita Fernández is a 55 y.o. 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 I reviewed the differential between primary (polycythemia vera) versus secondary erythrocytosis secondary to conditions causing hypoxemia or hypercarbia such as sleep apnea, heart lung issues, smoking etc.. She is an active smoker, smokes half pack per day. She also has underlying cardiac and respiratory issues. She also has history of sleep apnea diagnosed 2-3 years ago. But, she has not been using CPAP. I advised her to make an appointment with the sleep medicine follow- up with them. My suspicion is for secondary/reactive erythrocytosis. Labs from her PCP showed abnormalities in all 3 blood cell lines with mild leukocytosis, mild erythrocytosis and mild thrombocytosis. JAK2 V617F mutation is negative. MPL, CALR were not checked. So Irecommend checking for those today along with the erythropoietin level. I will call her with results once we have all those I reviewed my impression and recommendations with Teresita Fernández and answered all the questions.. Pt agreed with the plan. Thank you Noemi Klein for asking us to see this very pleasant patient. Please don't hesitate to contact me if you'd like to discuss this patient's situation further. Apurva Paredes MD [facility] CC: JANNA Ramirez Kathryn H documented in this encounter Plan of Treatment Upcoming Encounters Date Type Department Care Team (Late st Contact Info) Description 09/14/2023 11:00 AM EDT Office Visit [place] [address] Mague Johnson MD [facility] [place] [address] documented as of this encounter Results * JAK2 with reflex to Myeloid Panel (09/03/2020 2:25 PM EDT) JAK2 Report JAK2 V617F Somatic Variant Genotyping [...] Gen[employer] [facility] [employer] (CG[employer]) Laboratory at [facility]. It has not been cleared or approved by the FDA. The laboratory is regulated under CLIA as qualified to perform high-complexity testing. This test is used for clinical purposes. It should not be regarded as investigational or for research. [facility] Comment: [VERIFIED DATE]09.10.20 Verified By:Ermelinda Ortiz, Jeffry Mckee Molecular Pathologist (Electronic Signature) Blood 09/03/2020 2:25 PM EDT 09/03/2020 5:44 PM EDT Narrative Resulting Agency Comment Spec In Lab Apurva Julio MD HEMATOLOGY ORDER DENISHA [facility] [place] [address] * Erythropoietin Level (09/03/2020 2:25 PM EDT) Erythropoietin 6.1 2.6 - 18.5 mIU/mL [facility] Comment: Test Performed by: [address] [address] Associate Media Director: Oh Parker M.D. Ph.D.; CLIA# [id number] Blood 09/03/2020 2:25 PM EDT 09/03/2020 3:28 PM EDT Apurva Julio MD CHEMISTRY ORDERA BLES [facility] [place] [address] documented in this encounter Visit Diagnoses Diagnosis Erythrocytosis Polycythemia, secondary Other specified abnormal findings of blood chemistry documented in this encounter Care Teams Log Turner Relationship Specialty Start Date End Date Noemi Sharma APRN [address] [place] [address] PCP - General Family Medicine 07/28/20 documented as of this encounter
--- OUTSIDE RECORDS SUMMARY | 2023-09-06 01:38 | XMS_ITS | Encounter Summary ---
Author Organization [facility] [place] [address] Care Team Providers Care It Programmer Analyst Name Role Phone Bernadette Childs MD Primary Care Provider [phone] Encounter Details Date Type Department Care Team (Latest Contact Info) Description 12/25/2018 1:21 PM EST - 12/25/2018 11:59 PM EST Hospital [place] [address] [facility] OBSTETRICS & [place] [address] PCB (post coital bleeding) Discharge Disposition: Home Social History Tobacco Use [...] Tablet Take 20 mg by mouth daily. metoprolol succinate (TOPROL-XL) 25 mg Tablet Sustained Release 24 hrIndications:Tachyc ardia, unspecified TAKE ONE TABLET BY MOUTH EVERY DAY 90 tablet 3 09/29/2018 07/18/2020 insulin NPH hum/reg insulin hm (NOVOLIN 70/30 U-100 INSULIN SUBQ) Inject 10-16 Units subcutaneously 2 times daily. 12 units in am and 18 units in pm 07/02/2022 estradiol (ESTRACE) 0.01 % (0.1 mg/gram) Cream Place 2 g vaginally as needed. 10/30/2021 gabapentin (NEURONTIN) 800 mg Tablet Take 800 mg by mouth 3 times daily. 07/16/2020 PEN NEEDLE 31 gauge x 3/16 Needle use once daily FOR LANTUS PEN 1 01/10/2017 04/23/2019 HYDROmorphone (DILAUDID) 2 mg Tablet Take 2 mg by mouth every 3 hours as needed for Pain. 10/30/2021 omeprazole (PRILOSEC) 40 mg Capsule, Delayed Release(E.C.) Take 20 mg by mouth daily. 10/30/2021 spironolactone (ALDACTONE) 50 mg Tablet Take 1 tablet by mouth daily. 90 tablet 3 05/25/2016 07/16/2020 polyethylene glycol (MIRALAX) 17 gram Powder in Packet Take 17 g by mouth as needed. 12/15/2021 furosemide (LASIX) 20 mg TabletIndications:Fl uid retention Take 1 tablet by mouth daily. 90 tablet 3 11/14/2014 07/16/2020 LORazepam (ATIVAN) 0.5 mg Tablet Take 0.5 mg by mouth every 6 hours as needed. 10/30/2021 traZODone (DESYREL) 100 mg tablet Take 100 mg by mouth nightly. 10/30/2021 documented as of this encounter Plan of Treatment Upcoming Encounters Date Type Department Care Team (Late st Contact Info) Description 09/14/2023 11:00 AM EDT Office [place] [address] [facility] DR ENDOCRIN[place] [address] [phone] (work) documented as of this encounter Procedures Procedure Name Priority Date/Time Associated Diagnosis Comments US TRANSVAGINAL NON OB Routine 12/25/2018 2:05 PM EST PCB (post coital bleeding) documented in this encounter Results * US Transvaginal Non OB (12/25/2018 2:05 PM EST) Anatomical Region Laterality Modality Ultrasound 12/25/2018 1:46 PM EST Impressions 12/25/2018 3:13 PM EST 1. Unremarkable pelvic ultrasound, with expected postmenopausal endometrial thickness of 2 mm. 2. Incidental 3mm endometrial cyst of doubtful clinical significance. I have personally reviewed the image(s) and the residents interpretation and agree with the findings, Jerardo Keith at 12/25/2018 3:05 PM Thank you for letting us participate in the care of this patient. For questions regarding this report, please contact the number below. Electronically signed by: Jerardo Keith, [facility] ([phone]), at 12/25/2018 3:05 PM ? Jerardo Keith, Staff Physician Electronically Signed Final Report ?? 12/25/2018 03:12 pm Narrative 12/25/2018 3:13 PM EST Gynecological Report ?(Signed Final 12/25/2018 03:12 pm) PATIENT INFO: ID #: ? [id number] ?: ??[birth year] (53 yrs) Name: ? TERESITA ESTEBANCAL ? Visit Date: 12/25/2018 01:46 pm PERFORMED BY: Performed By: ? Belinda MONK, ??Ava Attending: ?Inna VOGT, Jerardo Riley Referred By: ?LIZETT RODRIGUEZ Location: ? [place] SERVICE(S) PROVIDED: ??UTV - Transvaginal - [id number] ?[id number] ??UPELIM - Pelvis Limited - [id number] ? [id number] INDICATIONS: ??postcoital bleeindg TECHNIQUE/SCAN QUALITY: Technique: ?Transducer ID#:[id number] -------- HISTORY: -------- Age: ?? 53 ------- UTERUS: ------- Uterus: ? Visualized Position: ?? Anteverted Size (cm) ?L: ??5.0 ?W: ??3.2 ?H: ??2.6 ENDOMETRIUM: Endometrium: ?Normal Thickness(mm): ?1.66 Comment: ? 3mm endometrial cyst of doubtful clinical ?significance RIGHT OVARY: Status: ?? Visualized Size (cm) ?L: ??2.2 ?W: ??1.8 ?H: ??1.0 Vol (ml): ?2.1 Morphology: ?Normal appearance Comment: ? Ovary was not seen vaginally, transabdominal ?ultrasound was performed LEFT OVARY: Status: ?? Visualized Size (cm) ?L: ??2.0 ?W: ??1.6 ?H: ??1.1 Vol (ml): ?1.9 Morphology: ?Normal appearance Comment: ? Ovary was not seen vaginally, transabdominal ?ultrasound was performed Procedure Note Jerardo Keith MD - 12/25/2018 Gynecological Report (Signed Final 12/25/2018 03:12 pm) PATIENT INFO: ID #: [id number] : [birth year] (53 yrs) Name: TERESITA VILLAVICENCIO Visit Date: 12/25/2018 01:46 pm PERFORMED BY: Performed By: Ava Trevino RDMS Attending: Jerardo Keith MD Referred By: LIZETT RODRIGUEZ Location: [place] SERVICE(S) PROVIDED: UTV - Transvaginal - [id number] UPELIM - Pelvis Limited - [id number] INDICATIONS: postcoital bleeindg TECHNIQUE/SCAN QUALITY: Technique: Transducer ID#:[id number] -------- HISTORY: -------- Age: 53 ------- UTERUS: ------- Uterus: Visualized Position: Anteverted Size (cm) L: 5.0 W: 3.2 H: 2.6 ENDOMETRIUM: Endometrium: Normal Thickness(mm): 1.66 Comment: 3mm endometrial cyst of doubtful clinical significance RIGHT OVARY: Status: Visualized Size (cm) L: 2.2 W: 1.8 H: 1.0 Vol (ml): 2.1 Morphology: Normal appearance Comment: Ovary was not seen vaginally, transabdominal ultrasound was performed LEFT OVARY: Status: Visualized Size (cm) L: 2.0 W: 1.6 H: 1.1 Vol (ml): 1.9 Morphology: Normal appearance Comment: Ovary was not seen vaginally, transabdominal ultrasound was performed IMPRESSION 1. Unremarkable pelvic ultrasound, with expected postmenopausal endometrial thickness of 2 mm. 2. Incidental 3mm endometrial cyst of doubtful clinical significance. I have personally reviewed the image(s) and the residents interpretation and agree with the findings, Jerardo Keith at 12/25/2018 3:05 PM Thank you for letting us participate in the care of this patient. For questions regarding this report, please contact the number below. Electronically signed by: Jerardo Keith, [facility] ([phone]), at 12/25/2018 3:05 PM Jerardo Keith, Staff Physician Electronically Signed Final Report 12/25/2018 03:12 pm Lizett Rodriguez MD IMG US PELVIC ORDER DENISHA documented in this encounter Visit Diagnoses Diagnosis PCB (post coital bleeding) Postcoital bleeding documented in this encounter Care Teams It Programmer Analyst Relationship Specialty Start Date End Date Bernadette Childs MD [address] [place] [address] PCP - General 04/03/12 07/27/20 documented as of this encounter
--- OUTSIDE RECORDS SUMMARY | 2023-09-06 01:38 | XMS_ITS | Encounter Summary ---
Author Organization [facility] [place] [address] Care Team Providers Care Urinalysis Technician Name Role Phone Noemi Sharma APRN Primary Care Provider [phone] Reason for Referral * Diagnostic Test (Routine) - Closed Specialty Diagnoses / Procedures Referred By Víctor t Referred To Contact Cardiology Diagnoses Constrictive pericarditis Asymmetric septal hypertrophy Procedures Echocardiogram Transthoracic([facility]) Cornelius Sullivan II, MD [facility] [place] [address] [facility] [place] [address] Referral ID Status Reason Start Date Expiration Date V isits Requested Visits Authorized [id number] Closed Specialty Service Requested 07/16/2020 07/16/2021 1 1 Reason for Visit * Diagnostic Test (Routine) - Closed Specialty Diagnoses / Procedures Referred By Víctor t Referred To Contact Cardiology Diagnoses Constrictive pericarditis Asymmetric septal hypertrophy Procedures Echocardiogram Transthoracic([facility] or [facility]) Cornelius Sullivan II, MD [facility] [address] [facility] [place] [address] Referral ID Status Reason Start Date Expiration Date V isits Requested Visits Authorized [id number] Closed Specialty Service Requested 07/16/2020 07/16/2021 1 1 Encounter Details Date Type Department Care Team (Late st Contact Info) Description 10/15/2020 10:30 AM EDT - 10/15/2020 11:59 PM EDT Hospital Encounter Non-[place] [phone] Cornelius Sullivan II, MD [facility] [place] [address] h/o Constrictive pericarditis; Asymmetric septal hypertrophy; Constrictive pericarditis Discharge Disposition: Home Social History Tobacco Use [...] Sig Dispensed Refills Start Date End Date fluticasone propionate (Flonase) 50 mcg/actuation [place], Suspension INSTILL 1 SPRAY INTO BOTH NOSTRILS TWICE A DAY 09/05/2020 glimepiride (AMARYL) 4 mg Tablet Take 1-2 tablets by mouth daily. 180 tablet 3 09/26/2020 albuterol 90 mcg/actuation HFA Aerosol Inhaler Inhale 2 puffs into the lungs 4 times daily as needed for Wheezing (VENTOLIN). Use with spacer escitalopram (LEXAPRO) 20 mg Tablet Take 20 mg by mouth daily. atorvastatin (Lipitor) 20 mg TabletIndications:Hyp erlipidemia, unspecified hyperlipidemia type Take 1 tablet by mouth daily. 90 tablet 10/15/2020 10/19/2021 semaglutide (Ozempic) 0.25 mg or 0.5 mg(2 mg/1.5 mL) Pen Injector Inject 0.25 mg subcutaneously every 7 days for 28 days, THEN 0.5 mg every 7 days for 28 days. 6 mL 11 09/26/2020 11/21/2020 insulin needles, disposable, 32 gauge x 5/32 Needle 1 each by [facility].(Non-Drug; Combo Route) route once a week. 50 each 3 09/26/2020 12/15/2021 escitalopram (Lexapro) 10 mg Tablet Take 10 mg by mouth daily. 04/23/2020 10/30/2021 novoLIN 70/30 Suspension Inject 35 Units subcutaneously 2 times daily. 07/26/2020 10/30/2021 metoprolol succinate XL (Toprol-XL) 50 mg Tablet Sustained Release 24 hrIndications:Tachyca rdia, unspecified Take 1 tablet by mouth daily. 90 tablet 3 07/18/2020 07/16/2021 furosemide (Lasix) 20 mg TabletIndications:Flu id retention Take 1 tablet by mouth daily. 90 tablet 3 07/16/2020 06/18/2021 spironolactone (ALDACTONE) 50 mg TabletIndications:Car diac cirrhosis,Fluid retention Take 1 tablet by mouth [...] 11:00 AM EDT Office [place] [phone] Mague Johnson MD [facility] [place] [address] documented as of this encounter Procedures Procedure Name Priority Date/Time Associated Diagnosis Comments ECHO COMPLETE Routine 10/15/2020 11:55 AM EDT Constrictive pericarditis Asymmetric septal hypertrophy documented in this encounter Results * ECHO COMPLETE (10/15/2020 11:55 AM EDT) EF 63 HEARTLAB SYSTEM Anatomical Region Laterality Modality Other 10/15/2020 Narrative 10/15/2020 12:31 PM EDT Procedure: ?Transthoracic Echocardiogram Patient: ?MAYE PATE M ?(Age): 1965(55y) Med Rec#: ? [id number] ?Sex: ?F ? Site Loc: ? [facility] ?Ht / Wt: ??157(cm)/99.99(k Pt. Loc: ?Echo Lab ?BSA: ?1.99 Study Date: ?? 10/15/2020 ?Pt. Type: Outpatient Tape: ? Referring: Cornelius Sullivan Reading: Joaquin Kessler ??([id number]) Coloring Checker: Salma Anne Diagnosis: *Other hypertrophic cardiomyopathy (I42.2) [...] E-wave Vmax ?0.7 ?m/sec ? MV deceleration [id number] ?msec ? MV A-wave Vmax ?0.89 ? [...] 10/15/2020 12:30:34 Images reviewed and interpretation verified [facility] Cardiac Ultrasound Laboratory Procedure Note Joaquin Kessler MD - 10/15/2020 Procedure: Transthoracic Echocardiogram Patient: MAYE Ovalle (Age): 1965(55y) Med Rec#: [id number] Sex: F Site Loc: [facility] Ht / Wt: 157(cm)/99.99(k Pt. Loc: Echo Lab BSA: 1.99 Study Date: 10/15/2020 Pt. Type: Outpatient Tape: Referring: Cornelius Sullivan Reading: Joaquin Kessler ([id number]) Coloring Checker: Salma Anne Diagnosis: *Other hypertrophic cardiomyopathy (I42.2) [...] MV E-wave Vmax 0.7 m/sec MV deceleration [id number] msec MV A-wave Vmax 0.89 m/sec MV [...] 10/15/2020 12:30:34 Images reviewed and interpretation verified [facility] Cardiac Ultrasound Laboratory Cornelius Sullivan II, MD ECHO ORDERABLES documented in this encounter Visit Diagnoses Diagnosis h/o Constrictive pericarditis Constrictive pericarditis Asymmetric septal hypertrophy Other hypertrophic cardiomyopathy documented in this encounter Care Teams Urinalysis Technician Relationship Specialty Start Date End Date Noemi Sharma, OVERNIGHT ASSOCIATE [address] [place] [address] PCP - General Family Medicine 07/28/20 documented as of this encounter
--- OUTSIDE RECORDS SUMMARY | 2023-09-06 01:38 | XMS_ITS | Encounter Summary ---
Author Organization [facility] Address [facility] [place] [address] Care Team Providers Care Helper Animal Laboratory Name Role Phone Bernadette Childs MD Primary Care Provider [phone] Encounter Details Date Type Department Care Team (Late st Contact Info) Description 06/18/2019 Orders Only Obstetrics [place] [phone] Laine Medrano, RN Social History Tobacco Use Types Packs/Day [...] EDT Office [place] [address] Mague Johnson MD [facility] [place] [address] documented as of this encounter Visit Diagnoses Not on filedocumented in this encounter Care Teams Helper Animal Laboratory Relationship Specialty Start Date End Date Bernadette Childs MD [address] [facility] [address] [place] [address] PCP - General 04/03/12 07/27/20 documented as of this encounter
--- OUTSIDE RECORDS SUMMARY | 2023-09-06 01:38 | XMS_ITS | Encounter Summary ---
Author Organization Formerly [facility], Later [facility] Address [facility] [place] [address] Care Team Providers Care Pound Attendant Name Role Phone Noemi Sharma APRN Primary Care Provider [phone] Encounter Details Date Type Department Care Team (Late st Contact Info) Description 07/27/2021 Transcribe Orders eDH Incoming Referrals [phone] Noemi Sharma APRN [address] [place] [address] Social History Tobacco Use Types Packs/Day Years [...] 11:00 AM EDT Office [place] [address] Mague Johnson MD [facility] [place] [address] documented as of this encounter Visit Diagnoses Not on filedocumented in this encounter Care Teams Pound Attendant Relationship Specialty Start Date End Date Noemi Sharma APRN [address] [place] [address] PCP - General Family Medicine 07/28/20 documented as of this encounter
--- OUTSIDE RECORDS SUMMARY | 2023-09-06 01:38 | XMS_ITS | Encounter Summary ---
Author Organization [facility] [place] [address] Care Team Providers Care User Experience Designer Name Role Phone Bernadette Childs MD Primary Care Provider [phone] Reason for Visit * Reason Comments Establish Care post menopausal atro phic vaginitis * Consultation (Routine) - Closed Specialty Diagnoses / Procedures Referred By Víctor t Referred To Contact Obstetrics and Gynecology Diagnoses post menopausal atrophic vaginitis Bernadette Childs MD [address] [address] [facility] [address] [place] [address] Referral ID Status Reason Start Date Expiration Date V isits Requested Visits Authorized [id number] Closed Consult, Test & Treat Connection Center 08/08/2018 08/08/2019 1 1 Encounter Details Date Type Department Care Team (Late st Contact Info) Description 10/25/2018 11:00 AM EDT Office Visit Obstetrics [place] [address] Maricarmen Rodriguez MD [facility] DR OBSTETRICS & [place] [address] PCB (post coital bleeding); Lichen planus Social History Tobacco Use Types Packs/Day Years [...] Sign Reading Time Taken Comments Blood Pressure 126/80 10/25/2018 11:17 AM EDT Pulse 91 10/25/2018 11:17 AM EDT Temperature 36.8 ??C (98.3 ??F) 10/25/2018 11:17 AM E DT Respiratory Rate - - Oxygen Saturation 98% 10/25/2018 11:17 AM EDT Inhaled Oxygen Concentration - - Weight 98.2 kg (216 lb 9.6 oz) 10/25/2018 11:17 AM EDT Height - - Body Mass Index 39.24 06/07/2018 3:49 PM EDT documented in this encounter Progress Notes * Maricarmen Rodriguez MD - 10/25/2018 11:00 AM EDT 10/25/2018 Ms. Villavicencio is a 53 y.o. P1 self referred for atrophic vaginitis and ?cervical lesion. She developed postcoital bleeding in October 2017. It was a good size stain on her bed. Initially she was told she did not have enough lubrication. She was then examined and told that she needed topical estrogen for menopausal dryness, and was using it internally. She was also told that she had a growth either in her vagina or on her cervix. The internal estrogen did not help with the discomfort, but she was told the lesion had shrunken insize. She stopped the estrogen cream in May or June due to concerns of estrogen use due to your heart problem. She honestly did not like using the estrogen cream, due to messiness. Currently, she has occasional but not always bleeding after sex. She also notes occasional lower abdominal aching; her bowels are regular. Due to marital issues, she did not have sex for many years and currently is with a new partner. 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 She also has cardiac liver cirrhosis. She is status post cholecystectomy as well. She sees the crumb packer every 6 months, and Dr. Sullivan from cardiology regularly at [facility]. She also has diabetes, , depression, anxiety, hyperlipidemia ROS: she denies urinary incontinence. Bowels are regular LMP age 39 +GERD Last hgb A1C in the 8 range +fatigue SH: disabled due to her illness ??? metoprolol succinate (TOPROL-XL) 25 mg Tablet Sustained Release 24 hr ??? insulin NPH hum/reg insulin hm (NOVOLIN 70/30 U-100 INSULIN SUBQ) ??? gabapentin (NEURONTIN) 800 mg Tablet ??? PEN NEEDLE 31 gauge x 3/16 Needle ??? HYDROmorphone (DILAUDID) 2 mg Tablet ??? albuterol 90 mcg/actuation HFA Aerosol Inhaler ??? omeprazole (PRILOSEC) 40 mg Capsule, Delayed Release(E.C.) ??? escitalopram (LEXAPRO) 20 mg Tablet ??? spironolactone (ALDACTONE) 50 mg Tablet ??? polyethylene glycol (MIRALAX) 17 gram Powder in Packet ??? furosemide (LASIX) 20 mg Tablet ??? LORazepam (ATIVAN) 0.5 mg Tablet ??? traZODone (DESYREL) 100 mg tablet ??? estradiol (ESTRACE) 0.01 % (0.1 mg/gram) Cream Patient Active Problem List Diagnosis Date Noted ??? BHARATI (obstructive sleep apnea) ??? Depression ??? Anxiety disorder ??? Diabetes mellitus ??? Obesity, Class III, BMI 40-49.9 (morbid obesity) 08/19/2016 ??? Tricuspid valve insufficiency 08/22/2014 ??? Pain in left arm 10/02/2013 ??? Chronic diastolic congestive heart failure 03/23/2013 ??? SOB (shortness of breath) 03/21/2013 ??? Chest pain 03/21/2013 ??? Fever 03/21/2013 ??? HCAP (healthcare-associated pneumonia) 03/21/2013 ??? Chronic right-sided heart failure 03/15/2013 ??? Cardiac cirrhosis 03/15/2013 ??? 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 Ascites 02/21/2013 ??? Abdominal pain, RUQ (right upper quadrant) 02/03/2013 ??? Abnormal LFTs (liver function tests) 02/03/2013 ??? Hyperlipidemia 08/15/2012 Past Surgical History: Procedure Laterality Date ??? CHOLECYSTECTOMY ??? COLONOSCOPY ??? PRO LAP, CHOLECYSTECTOMY/GRAPH 02/19/2013 LAPAROSCOPIC CHOLECYSTECTOMY WITH CHOLANGIOGRAM performed by Octaviano Torrez MD at [facility] MAIN OR ??? PRO UNLISTED LAPAROSCOPIC PX LVR 02/19/2013 LAPAROSCOPIC LIVER BIOPSY performed by Octaviano Torrez MD at [facility] MAIN OR ??? UPPER GASTROINTESTINAL ENDOSCOPY BP 126/80 Pulse 91 Temp 36.8 ??C (98.3 ??F) Wt 98.2 kg (216 lb 9.6 oz) SpO2 98% BMI 39.24kg/m?? On exam, she looks well. On oral exam, she has a line of white change along lower R back molars (allergic reaction to CBD pouch), some ?mild striae back of both buccal surfaces. On vulvar exam, she has small inclusion cyst R labia, the clitoris, labia minora, majora, perineal body are normal. On speculum exam, small amount of white secretions, sample taken for yeast. There is erythema over exocervix with flattening of the cervix,? blending of posterior cervix into vagina. Remainder of the vagina appears normal, nl length to vagina, no marked foreshortening appreciated inferiorly. Elected to biopsy the cervix, Speculum reinserted, betadine wash, 2% lidocaine with epi on the anterior lip, tischler biopsy forceps used to remove specimen, silver nitrate stick. Impression: Differential includes vaginal lichen planus. Another consideration could be a local cervical issue such as cervicitis Plan: Await path results, then will need to make a plan. documented in this encounter Miscellaneous Notes * Addendum Note - Maricarmen Rodriguez MD - 10/25/2018 11:00 AM EDTAddended by: MARICARMEN RODRIGUEZ on: 10/28/2018 03:15 PM Modules accepted: Level of Service documented in this encounter Plan of Treatment Upcoming Encounters Date Type Department Care Team (Late st Contact Info) Description 09/14/2023 11:00 AM EDT Office [place] [address] Mague Johnson MD [facility] [address] [place] [address] documented as of this encounter Procedures Procedure Name Priority Date/Time Associated Diagnosis Comments SPECIMEN TO PATHOLOGY Routine 10/25/2018 12:11 PM EDT PCB (post coital bleeding) Lichen planus SURGICAL PATHOLOGY REPORT Routine 10/25/2018 11:00 AM EDT HC FUNGUS CULTURE, MISC SOURCE Routine 10/25/2018 11:00 AM EDT Lichen planus documented in this encounter Results * US [...] number below. Electronically signed by: Jerardo Keith, [facility] ([phone]), at 12/25/2018 3:05 PM ? Jerardo Keith, Staff Physician Electronically Signed Final Report ?? 12/25/2018 03:12 pm Narrative 12/25/2018 3:13 PM EST Gynecological Report ?(Signed Final 12/25/2018 03:12 pm) PATIENT INFO: ID #: ? [id number] ?: ??[birth year] (53 yrs) Name: ? HERLINDA VILLAVICENCIO ? Visit Date: 12/25/2018 01:46 pm PERFORMED BY: Performed By: ? Belinda MONK, ??Ava Attending: ?Inna VOGT, Jerardo Riley Referred By: ?MARICARMEN RODRIGUEZ Location: ? [facility] SERVICE(S) PROVIDED: ??UTV - Transvaginal - [id number] ?[id number] ??UPELIM - Pelvis Limited - [id number] ? [id number] INDICATIONS: ??postcoital bleeindg TECHNIQUE/SCAN QUALITY: Technique: ?Transducer [...] 12/25/2018 03:12 pm) PATIENT INFO: ID #: [id number] : [birth year] (53 yrs) Name: HERLINDA VILLAVICENCIO Visit Date: 12/25/2018 01:46 pm PERFORMED BY: Performed By: Ava Trevino RDMS Attending: Jerardo Keith MD Referred By: MARICARMEN RODRIGUEZ Location: [facility] SERVICE(S) PROVIDED: UTV - Transvaginal - [id number] UPELIM - Pel[employer] - [id number] INDICATIONS: postcoital bleeindg TECHNIQUE/SCAN QUALITY: Technique: Transducer [...] the number below. Electronically signed by: Jerardo Keith [facility] ([phone]), at 12/25/2018 3:05 PM Jerardo Keith, Staff Physician Electronically Signed Final Report 12/25/2018 03:12 pm Maricarmen Rodriguez MD IMG US PELVIC ORDER DENISHA * Specimen to Pathology (10/25/2018 12:11 PM EDT) AP Specimen 10/25/2018 12:1 1 PM EDT 10/25/2018 12:11 PM EDT Narrative [facility] - 10/25/2018 12:11 PM EDT Specimen requisition ordered. ??Separate Pathology report to follow Maricarmen Rodriguez MD PATHOLOGY/CYTOLOGY ORDERABLES [facility] [place] [address] * Surgical Pathology Report (10/25/2018 11:00 AM EDT) Surgical Pathology Report [id number] ? Location: 5L The signing pathologist has (i) examined the relevant preparation(s) for the specimen(s) and (ii) rendered or confirmed the diagnosis(es). . ?Surgical Pathology DIAGNOSIS Cervix, biopsy: Polypoid tissue with acute and chronic inflammation, hemorrhage, and overlying reactive squamous mucosa (see Discussion). Electronically signed by: ??Rosa Kumar DO Verified: ??10/27/2018 ?Pathologist Performed at: ??-[facility] Dept. of Pathology, [place], [place] DISCUSSION Dr. uBrger (dermatopatholo ) also reviewed this case. Features of lichen planus are not seen in this biopsy. Clinical correlation is recommended. CLINICAL INFORMATION Specimen Submitted: A - Cervix biopsy Clinical History and Diagnosis: Postcoital bleeding with erythema over cervix, history of oral lichen planus, clinical exam suggestive of lichen planus. R/O lichen planus SPECIMEN PROCESSING A - Labeled/Fixativ e: Patient demographics, formalin. Quantity/Size: Single, 0.3 cm. Tissue Description: Soft, red tissue. Sections/Proces sing: Submitted en toto ??in 1 cassette labeled A1. ??sns [facility] 10/25/2018 11:0 0 AM EDT Maricarmen Rodriguez MD PATHOLOGY/CYTOLOGY ORDERABLES Performing Organization Address City/[facility]/ZIP Co de Phone Number [facility] [place] [address] * Yeast culture Vaginal (10/25/2018 11:00 AM EDT) Yeast Culture No Yeast isolated [facility] Vaginal 10/25/2018 11:0 0 AM EDT 10/25/2018 6:46 PM EDT Narrative Resulting Agency Comment Spec In Lab Maricarmen Rodriguez MD MICROBIOLOGY - GENE RAL ORDERABLES Performing Organization Address [facility]/ZIP Co de Phone Number [facility] [place] [address] documented in this encounter Visit Diagnoses Diagnosis PCB (post coital bleeding) Postcoital bleeding Lichen planus PCB (post coital bleeding) Postcoital bleeding documented in this encounter Care Teams User Experience Designer Relationship Specialty Start Date End Date Bernadette Childs MD [address] [place] [address] [address] [place] [address] PCP - General 04/03/12 07/27/20 documented as of this encounter
--- OUTSIDE RECORDS SUMMARY | 2023-09-06 01:38 | XMS_ITS | Encounter Summary ---
Author Organization [facility] [address] Care Team Providers Care Employment Programs Analyst Name Role Phone Noemi Sharma APRN Primary Care Provider [phone] Reason for Visit * Consultation (Routine) - Closed Specialty Diagnoses / Procedures Referred By Víctor thomas Referred To Contact Gastroenterology Diagnoses Hepatic cirrhosis, unspecified hepatic cirrhosis type, unspecified whether ascites present Other ascites Elevated alkaline phosphatase level Abnormal liver function Noemi Sharma APRN [address] [place] [address] [facility] [address] [place] [address] Referral ID Status Reason Start Date Expiration Date V isits Requested Visits Authorized [id number] Closed Consult, Test & Treat 03/12/2022 03/12/2023 1 1 Encounter Details Date Type Department Care Team (Late st Contact Info) Description 03/25/2022 11:30 AM EST Office [place] [address] Karen Farnsworth MD [facility] [place] [address] scan, colon; Hepatic cirrhosis, unspecified hepatic cirrhosis type, unspecified [...] Sign Reading Time Taken Comments Blood Pressure 104/74 03/25/2022 11:28 AM EST Pulse 92 03/25/2022 11:28 AM EST Temperature - - Respiratory Rate - - Oxygen Saturation - - Inhaled Oxygen Concentration - - Weight 87.6 kg (193 lb 3.2 oz) 03/25/2022 11:28 AM EST Height 157.5 cm (5' 2) 03/25/2022 11:28 AM EST Body Mass Index 35.34 03/25/2022 11:28 AM EST documented in this encounter Progress Notes * Karen Farnsworth MD - 03/25/2022 11:30 AM EST Gastroenterology and Hepatology Consult Patient: Teresita Fernández : 1965 Provider: Karen Farnsworth MD Problem List: Cirrhosis -diagnosed 2012 by liver biopsy at the time of ccy -path was consistent with cirrhosis from chronic passive congestion; she had chronic pericarditis as the etiology. She underwent percardial stripping in 2013 at [facility]. Edema symptoms resolved. -followed by Dr. 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 One son- getting this year 2020 Smoking about 1/4 pack per day, had quit for years, restarted in 2019 No alcohol Interval History: A few weeks ago had left sided abdominal pain, somewhat sharp. No diarrhea, no blood in stool. CT abd showed some mesenteric stranding near the left colon, no diverticula. She was sent home on a liquid diet and a 10 day course of cipro and flagyl. Pain resolved. She feels fine now. Summary of prior history: I met her in 2013 when she presented with a variety of symptoms including SOB, LE edema. Liver biopsy was consistent with cardiac cirrhosis. I had recommended surgical treatment of chronic pericarditis, but then I did not see her in follow up. Over the years she has done well from the liver standpoint with no signs of decompensation. Cardiacfunction has also been stable with no recurrence of heart failure. Current Outpatient Medications Medication Sig Dispense Refill ??? atorvastatin (Lipitor) 20 mg Tablet Take [...] Take 10 mg by mouth daily. ??? loratadine (Claritin) 10 mg Tablet Take 10 mg by mouth daily. ??? Ozempic 1 mg/dose (2 mg/1.5 mL) Pen Injector Inject 1 mg subcutaneously every 7 days. 9 mL 3 ??? fluticasone propionate (Flonase) 50 mcg/actuation [place], Suspension INSTILL 1 SPRAY INTO BOTH NOSTRILS TWICE A DAY ??? glimepiride (AMARYL) 4 mg Tablet Take 1-2 tablets by mouth daily. 180 tablet 3 ??? BD Veo Insulin Syringe [...] by mouth daily. No current facility-administered medications for this visit. Vitals: 03/25/22 1128 Weight: 87.6 kg (193 lb 3.2 oz) Height: 157.5 cm (5' 2) Body mass index is 35.34 kg/m??. Exam: Looks well Assessment and Plan: 56 y.o. female with history of constrictive pericarditis [...] the risk of progression of liver disease. Congenital heart disease is one condition were the risk of HCC is higher than with other causes of cirrhosis. This fact and the fact that she has risk factors for fatty liver (obesity, diabetes, sleep apnea) make me think she should continue to be screened for hcc. The transient left sided abd pain is of unclear etiology. The left cyndee colonic mesenteric stranding might has suggested early ischemic colitis. She has no findings to suggest colitis. Recommendations: -colonoscopy to assess for any colonic abnormalities to correlate with CT -continue to follow platelets, albumin yearly for signs of progression of liver disease -continue liver ultrasounds q 6 months- next due in July 2022- these can be done at [facility]. -work on managing the metabolic syndrome to avoid complications of fatty liver disease -she has been on diuretics since prior to pericardial stripping, it is unclear if she still needs to be on them. We can try stopping lasix and see how she feels in regards to edema and shortness of breath. She will contact my by the portal to let me know. Time spent with patient: 25 min Time spent reviewing records, documentin min Karen Farnsworth MD Section of Gastroenterology & Hepatology [address] [place] [id number] Cc: Noemi Sharma APRN documented in this encounter Plan of Treatment Upcoming Encounters Date Type Department Care Team (Late st Contact Info) Description 09/14/2023 11:00 AM EDT Office [place] [address] Mague Johnson MD [facility] [place] [address] documented as of this encounter Visit Diagnoses Diagnosis Abnormal CT scan, colon Nonspecific (abnormal) findings on radiological and other examination of gastrointestinal tract Hepatic cirrhosis, unspecified hepatic cirrhosis type, unspecified whether ascites present documented in this encounter Care Teams Employment Programs Analyst Relationship Specialty Start Date End Date Noemi Sharma APRN [address] [place] [address] PCP - General Family Medicine 07/28/20 documented as of this encounter
--- OUTSIDE RECORDS SUMMARY | 2023-09-06 01:38 | XMS_ITS | Encounter Summary ---
Author Organization Formerly [facility] [place] [address] Care Team Providers Care Congressional Representative Name Role Phone Noemi Sharma APRN Primary Care Provider [phone] Reason for Referral * Consultation (Routine) - Closed Specialty Diagnoses / Procedures Referred By Víctor thomas Referred To Contact Gastroenterology Diagnoses Hepatic cirrhosis, unspecified hepatic cirrhosis type, unspecified whether ascites present Other ascites Elevated alkaline phosphatase level Abnormal liver function Noemi Sharma APRN [address] [place] [address] [facility] [place] [address] Referral ID Status Reason Start Date Expiration Date V isits Requested Visits Authorized [id number] Closed Consult, Test & Treat 03/12/2022 03/12/2023 1 1 Encounter Details Date Type Department Care Team (Latest Contact Info) Description 03/12/2022 Transcribe Orders eD Incoming Referrals [phone] Luli Radford Hepatic cirrhosis, unspecified hepatic cirrhosis type, unspecified whether ascites present; Other ascites; Elevated alkaline phosphatase level; Abnormal liver function Social History Tobacco Use Types Packs/Day Years [...] 11:00 AM EDT Office [place] [address] Mague Johnson MD [facility] [place] [address] Scheduled Referrals Name Type Priority Associated Diagnoses Order Schedule Referral to Gastroenterology Outpatient Referral Routine Hepatic cirrhosis, unspecified hepatic cirrhosis type, unspecified whether ascites present Other ascites Elevated alkaline phosphatase level Abnormal liver function Ordered: 03/12/2022 documented as of this encounter Visit Diagnoses Diagnosis Hepatic cirrhosis, unspecified hepatic cirrhosis type, unspecified whether ascites present Other ascites Elevated alkaline phosphatase level Other nonspecific abnormal serum enzyme levels Abnormal liver function Unspecified disorder of liver documented in this encounter Care Teams Congressional Representative Relationship Specialty Start Date End Date Noemi Sharma APRN [address] [place] [address] PCP - General Family Medicine 07/28/20 documented as of this encounter
--- OUTSIDE RECORDS SUMMARY | 2023-09-06 01:38 | XMS_ITS | Encounter Summary ---
Author Organization [facility] [place] [address] Care Team Providers Care Sole Dyer Name Role Phone ZacharyKaty powershryn Carlito SALDIVAR Primary Care Provider [phone] Encounter Details Date Type Department Care Team (Late st Contact Info) Description 04/03/2021 External Results [place] [address] Judith Skinner, RN Social History Tobacco Use Types Packs/Day [...] 11:00 AM EDT Office [place] [address] Mague Johnson MD [facility] [place] [address] documented as of this encounter Procedures Procedure Name Priority Date/Time Associated Diagnosis Comments GENERAL CHEMISTERY EXTERNAL LAB PANEL Routine 03/27/2021 CBC WITH DIFF EXTERNAL LAB PANEL Routine 03/27/2021 documented in this encounter Results * External CBC Labs (03/27/2021) WBC 14.81 RBC 5.62 Hemoglobin 15.7 Hematocrit 47.8 MCV 85.1 MCH 27.9 MCHC 32.8 Platelets 429 03/27/2021 Historical Provider POINT OF CARE TWIN T ORDERABLES * General Chemistery External Lab Panel (03/27/2021) Glucose Lvl 98 Sodium 140 Potassium 4.7 Chloride 103 CO2 26 Creatinine 1.1 BUN 16 Calcium 9.7 Albumin 4.0 AST 24 ALT 37 Alk Phos 144 Total Bilirubin 0.5 Total Protein 7.4 Estimated GFR 51.76 GGT 79 03/27/2021 Historical Provider POINT OF CARE TWIN T ORDERABLES documented in this encounter Visit Diagnoses Not on filedocumented in this encounter Care Teams Sole Dyer Relationship Specialty Start Date End Date Noemi Sharma APRN [address] [place] [address] PCP - General Family Medicine 07/28/20 documented as of this encounter
--- OUTSIDE RECORDS SUMMARY | 2023-09-06 01:38 | XMS_ITS | Encounter Summary ---
Author Organization [facility] Address [facility] [place] [address] Care Team Providers Care Caregiver Assisted Living Name Role Phone Noemi Sharma Carlito SALDIVAR Primary Care Provider [phone] Encounter Details Date Type Department Care Team (Late st Contact Info) Description 10/15/2020 2:20 PM EDT Office Visit Cardiology at [address] [address] Cornelius Sullivan II, MD [facility] [place] [address] Abnormal LFTs (liver function tests); Cardiac cirrhosis; SOB (shortness of breath); Chest pain, unspecified type; Chronic diastolic congestive heart failure; Left shoulder pain, unspecified chronicity; Tricuspid valve insufficiency, unspecified etiology; BHARATI (obstructive sleep apnea); Hyperlipidemia, unspecified hyperlipidemia type Social History Tobacco Use Types Packs/Day [...] Sign Reading Time Taken Comments Blood Pressure 100/57 10/15/2020 2:01 PM EDT Pulse 87 10/15/2020 2:01 PM EDT Temperature - - Respiratory Rate - - Oxygen Saturation 96% 10/15/2020 2:01 PM EDT Inhaled Oxygen Concentration - - Weight 101.6 kg (224 lb) 10/15/2020 2:01 PM EDT Height 157.5 cm (5' 2) 10/15/2020 2:01 PM EDT Body Mass Index 40.97 10/15/2020 2:01 PM EDT documented in this encounter Progress Notes * Cornelius Sullivan W II - 10/15/2020 2:20 PM EDT Images from the original note were not included. Patient Name: Teresita Fernández : 1965 Age: 55 y.o. 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 Ascites ??? Abdominal pain, RUQ (right upper quadrant) ??? Abnormal LFTs (liver function tests) ??? Hyperlipidemia Current medications were reviewed and include: Outpatient Medications Marked as Taking for the 10/15/20 encounter (Office Visit) with Cornelius Sullivan II, MD Medication Sig Dispense Refill ??? fluticasone propionate (Flonase) 50 mcg/actuation [place], Suspension INSTILL 1 SPRAY INTO BOTH NOSTRILS TWICE A DAY ??? semaglutide (Ozempic) 0.25 mg or 0.5 mg(2 mg/1.5 mL) Pen Injector Inject 0.25 mg subcutaneouslyevery 7 days for 28 days, THEN 0.5 mg every 7 days for 28 days. 6 mL 11 ??? insulin needles, disposable, 32 gauge x 5/32 Needle 1 each by [facility]Non- Drug; Combo Route) route once a week. [...] Interval History: I last saw the patient on July 16, 2020. At that time she was still eating a plant-based diet to lose weight but her weight loss had plateaued. She continued to have functional classII-III dyspnea and had started smoking again. I once again counseled her to quit smoking and recommended nicotine lozenges or gum on a as needed basis resist cravings. I also noted a resting tachycardia and her Toprol was increased. Her cholesterol labs were checked and her LDL was 177 with a totalcholesterol of 264. Her liver functions were normal. Based on those results her 10-year risk of developing coronary disease is 32%. Additional lab findings included a mildly elevated hematocrit of 48. 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 She was seen again on September 19 and her myeloid gene panel was noted to be negative ruling out polycythemia vera. She was subsequently referred to sleep medicine for evaluation and treatment of sleep apnea. On September 26 she followed up with endocrinology who started her on a new diabetes regimen including glimepiride and Ozempic. Today in clinic the patient tells me that her symptoms of exertional dyspnea may be slightly bettersince increasing the metoprolol. She reports an additional weight loss of about 5 pounds. She currently is using CPAP regularly. She has been cutting back on her smoking and plans to quit in about 1 week. She denies chest pain. I would consider her exertional dyspnea functional class II-III. She denies palpitations, presyncope or syncope. She denies PND or orthopnea. She has hypertension and does not monitor her blood pressures at home but no elevated pressures have been reported to her. To pressures measured today are both low normal. Additionally, her heart rates have been lower by about 15 bpm. She agrees to start Lipitor 20 mg daily. Her liver functions were checked by her PCP in June and were normal. ROS: The remainder of a full review of systems is negative. Exam: Vital signs this visit: Vitals: 10/15/20 1401 BP: 100/57 Pulse: 87 SpO2: 96% Weight: 101.6 kg (224 lb) Height: 157.5 cm (5' 2) Chest: Clear to auscultation. Cardiac exam: Distant heart sounds, normal S1 and S2 without rub, murmur, gallop. Carotid upstrokes are brisk. There are no carotid bruits. Jugular venous pressure cannot be assessed due to body habitus. Abdominal exam reveals obesity without clear organomegaly, masses, tenderness. Examination of the extremities reveals no edema. Neurologic exam is grossly nonfocal. No results for input(s): WBC, HGB, HCT, PLATELET, NA, K, BUN, CREATININE, HA1C, ALT, CHLPL in the last 720 hours. Assessment: 55-year-old female with diabetes, heart failure with preserved ejection fraction, obstructive sleep apnea on CPAP, current smoking, as well as a history of a chest pain syndrome with a negative nuclear stress test in September 2017 and a history of constrictive pericarditis status post stripping [place] [facility] [place], who presents for follow-up of her cardiac issues. Her symptoms are slightly better and her heart rate is somewhat lower on an increased dose of metoprolol. She does have increased risk of coronary disease going forward and agrees to start Lipitor at a dose of 20 mg daily. She plans to quit smoking next week. Plan: 1. Smoking cessation 2. Start Lipitor at 20 mg daily 3. Continue metoprolol at 25 mg twice daily 4. Follow-up in this clinic in 6 months Cornelius Sullivan MD documented in this encounter Plan of Treatment Upcoming Encounters Date Type Department Care Team (Late st Contact Info) Description 09/14/2023 11:00 AM EDT Office [place] [address] Mague Johnson MD [facility] DR ENDOCRINOLOGY 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
--- OUTSIDE RECORDS SUMMARY | 2023-09-06 01:38 | XMS_ITS | Encounter Summary ---
Author Organization [facility] [place] [address] Care Team Providers Care Body Die Maker Name Role Phone Bernadette Childs MD Primary Care Provider [phone] Encounter Details Date Type Department Care Team (Late st Contact Info) Description 10/31/2018 Ancillary Procedure Radiology [place] [id number] Noemi Sharma APRN [address] [place] [address] Social History Tobacco Use Types Packs/Day Years [...] 11:00 AM EDT Office [place] [address] Mague Johnson MD [facility] [place] [address] documented as of this encounter Procedures Procedure Name Priority Date/Time Associated Diagnosis Comments FILM LIBRARY STORAGE ONLY ULTRASOUND STUDY Routine 10/31/2018 12:00 AM EDT documented in this encounter Results * Film Library- Storage Only Ultrasound Study (10/31/2018 12:00 AM EDT) Narrative [facility] - 03/12/2022 12:36 PM EST This exam is auto-finalizing. It's purpose is for storage only. Noemi Sharma APRN IMG FILM LIBRARY ORDERABLES [employer], [place] documented in this encounter Visit Diagnoses Not on filedocumented in this encounter Care Teams Body Die Maker Relationship Specialty Start Date End Date Bernadette Childs MD [address] [place] [address] PCP - General 04/03/12 07/27/20 documented as of this encounter
--- OUTSIDE RECORDS SUMMARY | 2023-09-06 01:38 | XMS_ITS | Encounter Summary ---
Author Organization [facility] [place] [address] Care Team Providers Care Video Manager Name Role Phone Bernadette Childs MD Primary Care Provider [phone] Encounter Details Date Type Department Care Team (Late st Contact Info) Description 11/05/2019 Ancillary Procedure [place] [phone] Noemi Sharma APRN [address] [place] [address] Social History Tobacco Use Types Packs/Day Years [...] 11:00 AM EDT Office [place] [address] Mague Johnson MD [facility] [place] [address] documented as of this encounter Procedures Procedure Name Priority Date/Time Associated Diagnosis Comments FILM LIBRARY STORAGE ONLY ULTRASOUND STUDY Routine 11/05/2019 12:00 AM EDT documented in this encounter Results * Film Library- Storage Only Ultrasound Study (11/05/2019 12:00 AM EDT) Narrative [facility] - 03/12/2022 12:36 PM EST This exam is auto-finalizing. It's purpose is for storage only. Noemi Sharma APRN IMG FILM LIBRARY ORDERABLES [place], [place] documented in this encounter Visit Diagnoses Not on filedocumented in this encounter Care Teams Video Manager Relationship Specialty Start Date End Date Bernadette Childs MD [address] [place] [address] PCP - General 04/03/12 07/27/20 documented as of this encounter
--- OUTSIDE RECORDS SUMMARY | 2023-09-06 01:38 | XMS_ITS | Encounter Summary ---
Author Organization [facility] [place] [address] Care Team Providers Care Retail Support Associate Name Role Phone Noemi Sharma JANNA Primary Care Provider [phone] Encounter Details Date Type Department Care Team (Latest Contact Info) Description 12/04/2021 10:40 AM EDT TH Visit (TeleHealth) Cardiology at [address] [address] Homer Dobbs MD [facility] [place] [address] Chronic right-sided heart failure; Hyperlipidemia, unspecified hyperlipidemia type; Fluid retention; Tachycardia, unspecified; Cardiac cirrhosis Social History Tobacco Use Types [...] as of this encounter Progress Notes * Homer Dobbs MD - 12/04/2021 10:40 AM EDT HPI: Teresita Fernández is a 56 y.o. 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 No PND. She uses cpap. PMHX Patient Active Problem List Diagnosis Code ??? [...] lung disease J98.4 ??? Sinus tachycardia R00.0 MEDS: Current Outpatient Medications on File Prior to Visit Medication Sig Dispense Refill ??? melatonin 5 [...] 3 ??? fluticasone propionate (Flonase) 50 mcg/actuation [place], Suspension INSTILL 1 SPRAY INTO BOTH NOSTRILS TWICE A DAY ??? insulin needles, disposable, 32 gauge x Needle 1 each by [facility].(Non- Drug; Combo Route) route once a week. 50 each 3 ??? glimepiride (AMARYL) 4 mg Tablet Take 1-2 tablets by mouth daily. 180 tablet 3 ??? fluconazole (Diflucan) 150 mg Tablet 1 tablet by mouth once. Repeat in three days if needed. (Patient not taking: Reported on 10/30/2021) 2 tablet 2 ??? BD Veo Insulin Syringe UF 0.3 mL 31 gauge x 15 Syringe ??? valACYclovir (VALTREX) 1 gram Tablet [...] medications on file prior to visit. reviewed [facility] Social History Socioeconomic History ??? Marital status: [...] Brother ??? Diabetes Brother ??? Diabetes Brother ROS Negative for blood in stool or urine. No fevers or chills. No recent syncope. Otherwise all other systems were reviewed and found to be negative. Physical Examination No data found. -- telehealth visit EKG: Performed. Ekg reviewed by myself LABS: Labs reviewed by myself No results found for this or any previous visit (from the past 24 hour(s)). Assessement and Plan: 56 year old obese female with htn, hlp, dm, s/p pericardial stripping. 1. hlp -- continue statin 2. Continue lasix and spironolactone for sob, check bmp 3. Hx of pericardial stripping 4. F/u 1 years documented in this encounter Plan of Treatment Upcoming Encounters Date Type Department Care Team (Late st Contact Info) Description 09/14/2023 11:00 AM EDT Office [place] [address] Mague Johnson MD [facility] 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
--- OUTSIDE RECORDS SUMMARY | 2023-09-06 01:38 | XMS_ITS | Encounter Summary ---
[place] [address] Care Team Providers Care Beam Doffer Name Role Phone Noemi Sharma JANNA Primary Care Provider [phone] Encounter Details Date Type Department Care Team (Late st Contact Info) Description 03/30/2022 Telephone [place] [address] Keisha lam Social History Tobacco Use Types Packs/Day Years [...] encounter Miscellaneous Notes * Telephone Encounter - Carmina Corderomiya - 03/30/2022 10:54 AM EST Teresita Fernández [id number] Diagnosis/Indication: abnormal colon on CT scan Please review patient chart to confirm if previous Endoscopy procedure was performed within [facility]. If yes, take note of Anesthesia type used. If previous procedure found, and with MAC/propofol Anesthesia support was used, schedule this procedure with Anesthesia and skip the Anesthesia portion of questions. If not performed within [facility] system, not performed at all, or performed with IVCS, ask Anesthesia questions. SCHEDULING QUESTIONS (ask all patient these questions) 1. Have you ever had a/an Colonoscopy before? Yes: Date Oswald 3 or 4 years ago, Dr Wylie If yes, did you have any problems with the procedure (such as waking up during the procedure, pain or difficulties afterwards, etc.)? No What type of sedation was used: Other: unknown 2. Do you take any blood thinners or have you been diagnosed with a bleeding disorder that increases your risk of bleeding with procedures? No 3. Do you have a Pacemaker or Defibrillator device? If yes, send pool message to Cardiology with patient information and date or procedure. No 4. Are you a diabetic? If yes, call PCP/managing provider to discuss use of prep and any questions or concerns related to. Yes: Controlled by diet or medication? Both 5. Do you take any iron supplements or vitamins that contain iron? Yes 6. Do you have a preference regarding the gender of your provider? Yes ANESTHESIA QUESTIONS (YES to any question, please book with Anesthesia support) 7. Have you ever been diagnosed with Pulmonary Hypertension and/or Congential Heart Disease? Yes 8. Have you been diagnosed with A-Fib (atrial fibrillation) that is NOT being well controled with medications? No 9. Have you ever had an allergic or adverse reaction to Fentanyl or Versed? No 10. Have you had a problem with sedation or anesthesia? (Waking up during procedure, extreme confusion after, etc.) No 11. Do you have a diagnosis of Obstructive Sleep Apnea that requires the use of a c-pap machine? Yes 12. Do you use an oxygen tank at home? No 13. Do you use a rescue inhaler more than twice per day? (COPD, severe asthma) No 14. Do you experience breathing problems when you lay flat for a period of time? No 15. Do you take prescription narcotic pain medications, including suboxone or methodone? No SCHEDULING CONFIRMATIONS: Please note any and all parts of your conversation with the patient here. 16. We offer all new patients an opportunity to have an appointment with one of our associate care providers to learn more about your upcoming procedure, ask questions and get answers. These appointments are offered via telehealth. Would you be interested in scheduling this appointment? (Only ask if NEW referral patient; skip this question if GI provider ordered the procedure.) No 17. Is there any other information or concerns you would like to us to share with your care team inrelation to your upcoming scheduled procedure? No 18. You must have a responsible constitution party who will drive you to your procedure, stay on campus for the entire duration of your procedure, and drive you home from your procedure. Who will likely be your lease purchase driver for the procedure? *Please Verify the height and weight, and adjust if height and/or weight have changed* Estimated body mass index is 35.34 kg/m?? as calculated from the following: Height as of 03/25/22: 157.5 cm (5' 2). Weight as of 03/25/22: 87.6 kg (193 lb 3.2 oz). Age:56 y.o. documented in this encounter Plan of Treatment Upcoming Encounters Date Type Department Care Team (Late st Contact Info) Description 09/14/2023 11:00 AM EDT Office [place] [address] Mague Johnson MD [facility] [place] [address] documented as of this encounter Visit Diagnoses Not on filedocumented in this encounter Care Teams Beam Doffer Relationship Specialty Start Date End Date Noemi Sharma APRN [address] [place] [address] PCP - General Family Medicine 07/28/20 documented as of this encounter
--- OUTSIDE RECORDS SUMMARY | 2023-09-06 01:38 | XMS_ITS | Encounter Summary ---
Author Organization [facility] [place] [address] Care Team Providers Care Deicer Tester Name Role Phone Bernadette Childs MD Primary Care Provider [phone] Encounter Details Date Type Department Care Team (Late Contact Info) Description 11/05/2019 12:05 AM EDT Ancillary Procedure [place] [address] Noemi Sharma APRN [address] [place] [address] Social History Tobacco Use Types Packs/Day Years [...] 11:00 AM EDT [place] [address] Mague Johnson MD [facility] [place] [address] documented as of this encounter Procedures Procedure Name Priority Date/Time Associated Diagnosis Comments FILM LIBRARY STORAGE ONLY ULTRASOUND STUDY Routine 11/05/2019 12:05 AM EDT documented in this encounter Results * Film Library- Storage Only Ultrasound Study (11/05/2019 12:05 AM EDT) Narrative [facility] - 03/12/2022 12:42 PM EST This exam is auto-finalizing. It's purpose is for storage only. Noemi Sharma APRN IMG FILM LIBRARY ORDERABLES [place], [place] documented in this encounter Visit Diagnoses Not on filedocumented in this encounter Care Teams Deicer Tester Relationship Specialty Start Date End Date Bernadette Childs MD [address] [place] [address] [address] [place] [address] PCP - General 04/03/12 07/27/20 documented as of this encounter
--- OUTSIDE RECORDS SUMMARY | 2023-09-06 01:38 | XMS_ITS | Encounter Summary ---
Author Organization [facility] [place] [address] Care Team Providers Care Power Plant Supervisor Name Role Phone Noemi Sharma APRN Primary Care Provider [phone] Encounter Details Date Type Department Care Team (Late Contact Info) Description 01/13/2022 Ancillary Procedure [place] [address] Noemi Sharma APRN [address] [place], [place] [address] Social History Tobacco Use Types Packs/Day Years [...] 11:00 AM EDT Office [place] [address] Mague Johnson MD [facility] [address] [place] [address] documented as of this encounter Procedures Procedure Name Priority Date/Time Associated Diagnosis Comments FILM LIBRARY STORAGE ONLY ULTRASOUND STUDY Routine 01/13/2022 12:00 AM EST documented in this encounter Results * Film Library- Storage Only Ultrasound Study (01/13/2022 12:00 AM EST) Narrative [facility] - 03/12/2022 12:39 PM EST This exam is auto-finalizing. It's purpose is for storage only. Noemi Sharma APRN [facility] FILM LIBRARY ORDERABLES Performing Organization Address City/State/[facility] Co de Phone Number [place], [place] documented in this encounter Visit Diagnoses Not on filedocumented in this encounter Care Teams Power Plant Supervisor Relationship Specialty Start Date End Date Noemi Sharma APRN [address] [place] [address] PCP - General Family Medicine 07/28/20 documented as of this encounter
--- OUTSIDE RECORDS SUMMARY | 2023-09-06 01:38 | XMS_ITS | Encounter Summary ---
[place] [address] Care Team Providers Care Warp Knit Operator Name Role Phone Noemi Sharma APRN Primary Care Provider [phone] Encounter Details Date Type Department Care Team (Late st Contact Info) Description 03/15/2022 Tele[place] [address] Ml Aleman RN Social History Tobacco Use Types Packs/Day [...] encounter Miscellaneous Notes * Telephone Encounter - Ml Aleman RN - 03/15/2022 4:48 PM EST Dx with colitis at [facility]. Rx'd metronidazole and ciprofloxacin. The former causes nausea. Asks if she should try to finish the course. Advised her to connect with ER provider or her PCP. documented in this encounter Plan of Treatment Upcoming Encounters Date Type Department Care Team (Late st Contact Info) Description 09/14/2023 11:00 AM EDT Office [place] [address] Mague Johnson MD [facility] [place] [address] documented as of this encounter Visit Diagnoses Not on filedocumented in this encounter Care Teams Warp Knit Operator Relationship Specialty Start Date End Date Noemi Sharma APRN [address] [place] [address] PCP - General Family Medicine 07/28/20 documented as of this encounter
--- OUTSIDE RECORDS SUMMARY | 2023-09-06 01:38 | XMS_ITS | Encounter Summary ---
Author Organization [facility] Address [facility] [place] [address] Care Team Providers Care Svp Chief Marketing Officer Name Role Phone Noemi Sharma APRN Primary Care Provider [phone] Encounter Details Date Type Department Care Team (Latest Contact Info) Description 03/18/2022 Travel Social History Tobacco Use Types Packs/Day [...] EDT Office [place] [address] Mague Johnson MD [facility] [place] [address] documented as of this encounter Visit Diagnoses Not on filedocumented in this encounter Care Teams Svp Chief Marketing Officer Relationship Specialty Start Date End Date Noemi Sharma APRN [address] [place] [address] PCP - General Family Medicine 07/28/20 documented as of this encounter
--- OUTSIDE RECORDS SUMMARY | 2023-09-06 01:39 | XMS_ITS | Encounter Summary ---
Author Organization [facility] [place] [address] Care Team Providers Care Reclamation Furnace Operator Name Role Phone Bernadette Childs MD Primary Care Provider [phone] Encounter Details Date Type Department Care Team (Latest Contact Info) Description 08/19/2016 7:57 AM EDT - 08/19/2016 11:59 PM EDT Hospital Encounter Non-Invasive [place] [id number] Discharge Disposition: Home Social History Tobacco Use [...] Sig Dispensed Refills Start Date End Date meTOPROLOL succinate (TOPROL-XL) 25 mg Tablet Sustained Release 24 hrIndications:Tachyc ardia, unspecified Take 1 tablet by mouth daily. 90 tablet 3 07/12/2016 09/15/2017 spironolactone (ALDACTONE) 50 mg Tablet Take 1 tablet by mouth daily. 90 tablet 3 05/25/2016 07/16/2020 polyethylene glycol (MIRALAX) 17 gram Powder in Packet Take 17 g by mouth as needed. 12/15/2021 furosemide (LASIX) 20 mg TabletIndications:Fl uid retention Take 1 tablet by mouth daily. 90 tablet 3 11/14/2014 07/16/2020 insulin glargine (LANTUS SOLOSTAR) Insulin Pen Inject 35 Units subcutaneously nightly. 06/08/19 LORazepam (ATIVAN) 0.5 mg Tablet Take 0.5 mg by mouth nightly. 11/10/2016 LORazepam (ATIVAN) 0.5 mg Tablet Take 0.5 mg by mouth every 6 hours as needed. 10/30/2021 FLUoxetine (PROZAC) 40 mg capsule Take 1 capsule by mouth daily. Reported on 08/19/2016 08/20/2013 11/10/2016 HYDROmorphone (DILAUDID) 2 mg tablet Take 2 mg by mouth every 4 hours as needed. 03/21/2017 traZODone (DESYREL) 100 mg tablet Take 100 mg by mouth nightly. 10/30/2021 documented as of this encounter Plan of Treatment Upcoming Encounters Date Type Department Care Team (Late st Contact Info) Description 09/14/2023 11:00 AM EDT Office [place] [address] Mague Johnson MD [facility] [place] [address] documented as of this encounter Visit Diagnoses Not on filedocumented in this encounter Care Teams Reclamation Furnace Operator Relationship Specialty Start Date End Date Bernadette Childs MD [address] [place] [address] PCP - General 04/03/12 07/27/20 documented as of this encounter
--- OUTSIDE RECORDS SUMMARY | 2023-09-06 01:39 | XMS_ITS | Encounter Summary ---
Author Organization [facility] [address] Care Team Providers Care Landmen Name Role Phone Bernadette Childs MD Primary Care Provider [phone] Reason for Referral * Diagnostic Test (Routine) - Specialty Diagnoses / Procedures Referred By Víctor thomas Referred To Contact Radiology Diagnoses FIGUEREDO (dyspnea on exertion) Type 2 diabetes mellitus without complication, with long-term current use of insulin Procedures NM Pharmacologic Stress CT Component Cornelius Sullivan II, MD [facility] [place] [address] [place] [address] Referral ID Status Reason Start Date Expiration Date Visits Requested Visits Authorized [id number] Specialty Service Requested 09/23/2017 09/23/2018 1 1 Reason for Visit * Diagnostic Test (Routine) - Closed Specialty Diagnoses / Procedures Referred By Controdriguez thomas Referred To Contact Radiology Diagnoses FIGUEREDO (dyspnea on exertion) Type 2 diabetes mellitus without complication, with long-term current use of insulin Procedures NM Pharmacologic Stress Myocardial Perfusion Cornelius Sullivan II, MD [facility] [place] [address] [facility] [place] [address] Referral ID Status Reason Start Date Expiration Date V isits Requested Visits Authorized [id number] Closed Specialty Service Requested 09/23/2017 09/23/2018 4 4 Encounter Details Date Type Department Care Team (Late st Contact Info) Description 10/14/2017 8:04 AM EDT Hospital Encounter [place] [address] Cornelius Sullivan II, MD [facility] [place] [address] FIGUEREDO (dyspnea on exertion); Type 2 diabetes mellitus without complication, with long-term current use of insulin Discharge Disposition: Home Social History Tobacco Use [...] BY MOUTH EVERY DAY 90 tablet 3 09/16/2017 09/28/2018 gabapentin (NEURONTIN) 800 mg Tablet Take 800 mg by mouth 3 times daily. 07/16/2020 UNABLE TO FIND 750 mg 2 times daily. Med Name: CBD OIL 06/07/2018 PEN NEEDLE 31 gauge x 3/16 Needle [...] 11:00 AM EDT Office [place] [address] Mague Johnson MD [facility] DR [place] [address] documented as of this encounter Procedures Procedure Name Priority Date/Time Associated Diagnosis Comments NM PHARMACOLOGIC STRESS CT COMPONENT Routine 10/14/2017 9:54 AM EDT FIGUEREDO (dyspnea on exertion) Type 2 diabetes mellitus without complication, with long-term current use of insulin documented in this encounter Results * NM Pharmacologic Stress CT Component (10/14/2017 9:54 AM EDT) Anatomical Region Laterality Modality Nuclear Medicine Impressions 10/14/2017 12:07 PM EDT No ischemia or scar. ??Left ventricular function is normal. Preliminary report signed by: Galileo Padilla at 10/14/2017 11:49 AM I have personally reviewed the image(s) and the residents interpretation and agree with the findings, Chava Miles at 10/14/2017 12:07 PM Narrative 10/14/2017 12:07 PM EDT EXAMINATION: NM PHARMACOLOGIC STRESS MYOCARDIAL PERFUSION, NM PHARMACOLOGIC STRESS CT COMPONENT CLINICAL HISTORY: CAD TECHNIQUE: During rest, 7.5 mCi of technetium-99m sestamibi was administered intravenously. Approximately 20 minutes later, SPECT images of the heart were obtained with reconstruction in the short, vertical long and horizontal long axis. The patient then received regadenoson intravenously at a dose of 0.4 mg. 20 seconds later, 25.7 mCi of technetium-99m sestamibi was administered intravenously. Images of the heart were then again obtained with SPECT reconstruction. A low-dose CT scan was acquired for the purpose of attenuation correction. COMPARISON: None FINDINGS: No fixed or reversible perfusion defects are present. Functional analysis: Myocardial function: There is normal wall thickening and wall motion. Left ventricular ejection fraction: 78 % (normal greater than than 50%). No significant incidental CT findings. Procedure Note Chava Miles MD - 10/14/2017 EXAMINATION: NM PHARMACOLOGIC STRESS MYOCARDIAL PERFUSION, NMPHARMACOLOGIC STRESS CT COMPONENT CLINICAL HISTORY: CAD TECHNIQUE: During rest, 7.5 mCi of technetium-99m sestamibi wasadministered intravenously. Approximately 20 minutes later, SPECT images of the heartwere obtained with reconstruction in the short, vertical long and horizontallong axis. The patient then received regadenoson intravenously at a dose of 0.4 mg.20 seconds later, 25.7 mCi of technetium-99m sestamibi was administered intravenously. Images of the heart were then again obtained with SPECT reconstruction. A low-dose CT scan was acquired for the purpose of attenuationcorrection. COMPARISON: None FINDINGS: No fixed or reversible perfusion defects are present. Functional analysis: Myocardial function: There is normal wall thickening and wall motion. Left ventricular ejection fraction: 78 % (normal greater than than 50%). No significant incidental CT findings. IMPRESSION No ischemia or scar. Left ventricular function is normal. Preliminary report signed by: Galileo Padilla at 10/14/2017 11:49 AM I have personally reviewed the image(s) and the residents interpretationand agree with the findings, Chava Miles at 10/14/2017 12:07 PM Cornelius Sullivan II, MD IMG NM ORDERABL ES documented in this encounter Visit Diagnoses Diagnosis FIGUEREDO (dyspnea on exertion) Other dyspnea and respiratory abnormality Type 2 diabetes mellitus without complication, with long-term current use of insulin documented in this encounter Care Teams Landmen Relationship Specialty Start Date End Date Bernadette Childs MD [address] [facility] [address] [place] [address] PCP - General 04/03/12 07/27/20 documented as of this encounter
--- OUTSIDE RECORDS SUMMARY | 2023-09-06 01:39 | XMS_ITS | Encounter Summary ---
Author Organization [facility] Address [facility] [place] [address] Care Team Providers Care Ophthalmic Surgeon Name Role Phone Bernadette Childs MD Primary Care Provider [phone] Reason for Visit * Diagnostic Test (Routine) - Closed Specialty Diagnoses / Procedures Referred By Víctor thomas Referred To Contact Radiology Diagnoses FIGUEREDO (dyspnea on exertion) Type 2 diabetes mellitus without complication, with long-term current use of insulin Procedures NM Pharmacologic Stress Myocardial Perfusion Cornelius Sullivan II, MD [facility] [place] [address] [place] [address] Referral ID Status Reason Start Date Expiration Date V isits Requested Visits Authorized [id number] Closed Specialty Service Requested 09/23/2017 09/23/2018 4 4 Encounter Details Date Type Department Care Team (Late st Contact Info) Description 10/14/2017 8:03 AM EDT Hospital Encounter [place] [address] Cornelius Sullivan II, MD [facility] [address] Discharge Disposition: Home Social History Tobacco Use [...] 11:00 AM EDT Office Visit Endocrinology at [facility] [place] [address] Mague Johnson MD [facility] [place] [address] documented as of this encounter Procedures Procedure Name Priority Date/Time Associated Diagnosis Comments NM PHARMACOLOGIC STRESS AND REST MYOCARDIAL PERFUSION Routine 10/14/2017 9:20 AM EDT FIGUEREDO (dyspnea on exertion) Type [...] 10/14/2017 12:07 PM Cornelius Sullivan II, MD [facility] NM ORDERABL ES * NM Pharmacologic Stress Myocardial Perfusion (10/14/2017 9:20 AM EDT) Anatomical Region Laterality Modality Nuclear [...] ES documented in this encounter Visit Diagnoses Not on filedocumented in this encounter Care Teams Ophthalmic Surgeon Relationship Specialty Start Date End Date Bernadette Childs MD [address] [facility] 1 [place] [address] PCP - General 04/03/12 07/27/20 documented as of this encounter
--- OUTSIDE RECORDS SUMMARY | 2023-09-06 01:39 | XMS_ITS | Encounter Summary ---
Author Organization [facility] Address [facility] [place] [address] Care Team Providers Care Cooker Meal Name Role Phone Bernadette Childs MD Primary Care Provider [phone] Encounter Details Date Type Department Care Team (Late st Contact Info) Description 08/11/2016 Orders [place] [address] Cornelius Sullivan II, MD [facility] [place] [address] FIGUEREDO (dyspnea on exertion); Lightheadedness Social History Tobacco Use Types Packs/Day Years [...] 11:00 AM EDT Office [place] [address] Mague Johnson MD [facility] [place] [address] documented as of this encounter Results * Cardiology Pulmonary Stress Test (08/19/2016 9:52 AM EDT) Anatomical Region Laterality Modality Other Cornelius Sullivan II, MD [facility] S ORDERABLES documented in this encounter Visit Diagnoses Diagnosis FIGUEREDO (dyspnea on exertion) Other dyspnea and respiratory abnormality Lightheadedness Dizziness and giddiness documented in this encounter Care Teams Cooker Meal Relationship Specialty Start Date End Date Bernadette Chidls MD [address] [facility] 1 [place] [address] PCP - General 04/03/12 07/27/20 documented as of this encounter
--- OUTSIDE RECORDS SUMMARY | 2023-09-06 01:39 | XMS_ITS | Encounter Summary ---
Author Organization [place] [address] Care Team Providers Care Ordnance Technician Name Role Phone Bernadette Childs MD Primary Care Provider [phone] Reason for Referral * Consultation (Routine) - Closed Specialty Diagnoses / Procedures Referred By Contac t Referred To Contact Sleep Center Diagnoses Disrupted sleep-wake cycle Hypersomnia Procedures PRG POLYLSOM 6+ YRS SLEEP W CPAP W 4+ ADDL ERIKA Bhumika Parr MD [facility] [place] [address] [facility] [address] [place] [address] Referral ID Status Reason Start Date Expiration Date V isits Requested Visits Authorized [id number] Closed Test Only 11/02/2016 11/02/2017 1 1 * Consultation (Routine) - Closed Specialty Diagnoses / Procedures Referred By Controdriguez thomas Referred To Contact Sleep Center Diagnoses Disrupted sleep-wake cycle Hypersomnia Bhumika Nickerson MD [facility] [address] [facility] [address] [place] [address] Referral ID Status Reason Start Date Expiration Date V isits Requested Visits Authorized [id number] Closed Test Only 11/02/2016 11/02/2017 1 1 Reason for Visit * Consultation (Routine) - Closed Specialty Diagnoses / Procedures Referred By Contac t Referred To Contact Sleep Center Diagnoses FGIUEREDO (dyspnea on exertion) Cornelius Sullivan II, MD [facility] [place] [address] [facility] [address] [place] [address] Referral ID Status Reason Start Date Expiration Date V isits Requested Visits Authorized [id number] Closed Consult, Test & Treat 08/31/2016 08/31/2017 1 1 Encounter Details Date Type Department Care Team (Late st Contact Info) Description 11/02/2016 1:00 PM EDT Office Visit Sleep Center at [facility] [address] [place] [address] Bhumika Nickerson MD [facility] [place] [address] Disrupted sleep-wake cycle; Hypersomnia Social History Tobacco Use Types Packs/Day Years [...] Sign Reading Time Taken Comments Blood Pressure 122/80 11/02/2016 12:49 PM EDT Pulse 76 11/02/2016 12:49 PM EDT Temperature - - Respiratory Rate - - Oxygen Saturation 98% 11/02/2016 12: 49 PM EDT Inhaled Oxygen Concentration - - Weight 108.7 kg (239 lb 9.6 oz) 017 12:49 PM EDT Height 157.5 cm (5' 2) 11/02/2016 12:4 9 PM EDT Body Mass Index 43.82 11/02/2016 12:49 PM EDT documented in this encounter Progress Notes * Bhumika Nickerson MD - 11/02/2016 1:00 PM EDT Sleep Medicine Consultation Note HPI: Teresita Beltre is a 51 y.o. female seen at the request of Dr. Cornelius Sullivan for advice regarding suspected obstructive sleep apnea. here for evaluation. She's not really sure why she is here. Main complaint is difficulty breathing during wakefulness. Has some snoring. doesn't feel that it is loud or bothersome. No reports of observed apneas. She is aware of waking feeling like she is gasping/anxious. May occur couple times a week. May be present since had pericardial stripping a couple years ago. Can wake 2-3x a night with it. Always seems to be on her back when it occurs. Feels like can breathe when wakes up. Can have trouble getting to sleep and staying asleep - has been going on for a while. States feels tired when goes to bed but also goes to bed because it's time. Uses sleep medicines.Does feel tired during the day. Present before heart surgery. Denies unintentional sleep and denies napping. Feels exhausted, fatigued but doesn't sleep. Doesn't work (disabled). Denies sleepiness with driving, denies accidents/close calls. Occ dozes as passenger. Sleep Pattern: Bed/Recliner/Wedge: bed, flat Bedtime: 11-11:30 Lights out: immediate Latency: variable - 30-120 min Awakenings: 3-4 Wake time: 8 (takes dog out); usually will go back to bed, may or may not sleep Rise time: 10-11 Respiratory: Snoring: some, not loud or disruptive Observed Apneas: no Mouth Breathing: not sure Dry Mouth: yes Nocturnal Gasping: occasional Nasal Obstruction: no Daytime Symptoms: [place]: 7 Upon Awakening: unrefreshed Naps: no Involuntary Dozing: no Driving: denies Close calls related to sleepiness denies Accidents related to sleepiness denies Other Associates Sleep Symptoms: Parasomnias: Sleep Walking: no Dream Enactment: no Motor: RLS: always moves legs although feels this is more relaxing PLMS: does feel like she twitches a lot when sleeping Family History: Family history of sleep disorders: father snored loudly ROS: CON: weight change: has gained weight over the past few years; close to highest weight ENT: nasal obstruction: no PUL: FIGUEREDO: yes; has chronic SOB CV: chest pain: no Palpitations: can wake feeling like heart racing LE edema: some GI: GERD: controlled with meds : Nocturia: 2-3x MSK: Pain: yes - left arm/shoulder NEURO: sleep related headaches: occ ENDO: no menses; does get hot flashes PSY: Depression, anxiety: doing better with meds Past Medical History: Patient Active Problem List Diagnosis Code ??? Abdominal pain, RUQ (right upper quadrant) R10.11 ??? Abnormal LFTs (liver function tests) R79.89 ??? Ascites R18.8 ??? 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 Chronic right-sided heart failure I50.9 ??? Cardiac cirrhosis K76.1 ??? SOB (shortness of breath) R06.02 ??? Chest pain R07.9 ??? Fever R50.9 ??? HCAP (healthcare-associated pneumonia) J18.9 ??? Chronic diastolic congestive heart failure I50.32 ??? Pain in left arm M25.512 ??? Obesity, Class III, BMI 40-49.9 (morbid obesity) E66.01 ??? Depression F32.9 ??? Anxiety disorder F41.9 ??? Diabetes mellitus E11.9 Medications: Outpatient Prescriptions Marked as Taking for the 11/02/16 encounter (Office Visit) with Bhumika Nickerson MD Medication Sig Dispense Refill ??? omeprazole (PRILOSEC) 40 mg Capsule, Delayed Release(E.C.) Take 40 mg by mouth daily. ??? escitalopram (LEXAPRO) 20 mg Tablet Take 20 mg by mouth daily. ??? albuterol 90 mcg/actuation HFA Aerosol Inhaler Inhale 2 puffs into the lungs every 4 hours as needed for Wheezing. Use with spacer ??? glipiZIDE (GLUCOTROL) 10 mg Tablet Take 10 mg by mouth 2 times daily (before meals). ??? meTOPROLOL succinate (TOPROL-XL) 25 mg Tablet Sustained Release 24 hr Take 1 tablet by mouth daily. 90 tablet 3 ??? spironolactone (ALDACTONE) 50 mg Tablet Take 1 tablet by mouth daily. 90 tablet 3 ??? polyethylene glycol (MIRALAX) 17 gram Powder in Packet Take 17 g by mouth as needed. ??? furosemide (LASIX) 20 mg Tablet Take 1 tablet by mouth daily. 90 tablet 3 ??? insulin glargine (LANTUS SOLOSTAR) Insulin Pen Inject 30 Units subcutaneously nightly. ??? LORazepam (ATIVAN) 0.5 mg Tablet Take 0.5 mg by mouth nightly. ??? HYDROmorphone (DILAUDID) 2 mg tablet Take 2 mg by mouth every 4 hours as needed. ??? traZODone (DESYREL) 100 mg tablet Take 100 mg by mouth nightly. Rarely uses dilaudid (doesn't use daily) Social History: Living situation: Employment: disabled Alcohol: minimal Smoking: no Caffeine: minimal Other drugs: denies PE: BP 122/80 Pulse 76 Ht 157.5 cm (5' 2) Wt (!) 108.7 kg (239 lb 9.6 oz) SpO2 98% BMI 43.82kg/m2 General: alert, no distress Eyes: PERRL, conjunctiva clear ENT: oropharynx MP: 3 Crowded: clear Dentition: intact Mandibular structure and position: normal NECK: Submental fat present: yes Supple, no LAD, no thyroid enlargement LUNGS: respirations even and unlabored, CTAB CV: RRR, no m/g/r, no c/c/e ABD: BS+, soft, NT, no HSM SKIN: warm and dry NEURO: gait and station normal, no tremor PSYCH: Alert and appropriate: yes Oriented to person, place and time: yes Affect: full range Mood:tired Judgement and insight: intact Assessment: Teresita Beltre is a 51 y.o. female with a history of poor sleep and daytime sleepiness and fatigue. She has a history of significant cardiopulmonary disease. Ms. Beltre also reports significant weight gain. The history and symptoms are suspicious for obstructive sleep apnea. The diagnosis of obst ructive sleep apnea was reviewed in detail with the patient at this time. Potential consequences ofuntreated obstructive sleep apnea reviewed, including increased cardiovascular risk. Treatment options reviewed in detail. Patient confirms that study results can be called to [phone] and detailed message left if not available to answer. Questions regarding diagnosis and management answered atthis time. Recommendations: 1. Overnight PSG 2. Role of weight loss reviewed; also discussed other conservative measures such as avoiding supinesleeping position and sleeping with head of bed elevated documented in this encounter Plan of Treatment Upcoming Encounters Date Type Department Care Team (Late st Contact Info) Description 09/14/2023 11:00 AM EDT Office [place] [address] Mague Johnson MD [facility] 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
--- OUTSIDE RECORDS SUMMARY | 2023-09-06 01:39 | XMS_ITS | Encounter Summary ---
Author Organization [facility] [place] [address] Care Team Providers Care Utility Worker Film Processing Name Role Phone Bernadette Childs MD Primary Care Provider [phone] Encounter Details Date Type Department Care Team (Late st Contact Info) Description 04/26/2018 Ancillary Procedure [place] [phone] Noemi Shrama APRN [address] [place] [address] Social History Tobacco Use Types Packs/Day Years [...] 11:00 AM EDT Office [place] [address] Mague Johnson MD [facility] [place] [address] documented as of this encounter Procedures Procedure Name Priority Date/Time Associated Diagnosis Comments FILM LIBRARY STORAGE ONLY DX ABDOMEN Routine 04/26/2018 12:00 AM EST documented in this encounter Results * Film Library- Storage Only DX Abdomen (04/26/2018 12:00 AM EST) Narrative YOLY - 03/12/2022 12:37 PM EST This exam is auto-finalizing. It's purpose is for storage only. Noemi Sharma APRN IMG FILM LIBRARY ORDERABLES [place], [place] documented in this encounter Visit Diagnoses Not on filedocumented in this encounter Care Teams Utility Worker Film Processing Relationship Specialty Start Date End Date Bernadette Childs MD [address] [place] [address] PCP - General 04/03/12 07/27/20 documented as of this encounter
--- OUTSIDE RECORDS SUMMARY | 2023-09-06 01:39 | XMS_ITS | Encounter Summary ---
Author Organization [facility] Address [facility] [place] [address] Care Team Providers Care Gypsum Roofer Name Role Phone Bernadette Childs MD Primary Care Provider [phone] Reason for Visit * Consultation (Routine) - Closed Specialty Diagnoses / Procedures Referred By Víctor thomas Referred To Contact Sleep Center Diagnoses Disrupted sleep-wake cycle Hypersomnia Libertad Nickerson MD [facility] [place] [address] [facility] Sleep Medicine [address] [place] [address] Referral ID Status Reason Start Date Expiration Date V isits Requested Visits Authorized [id number] Closed Test Only 11/02/2016 11/02/2017 1 1 Encounter Details Date Type Department Care Team (Late st Contact Info) Description 12/15/2016 8:30 PM EDT Procedure visit Sleep Center at [facility] [address] [place] [id number] Libertad Nickerson MD [facility] [place] [address] BHARATI (obstructive sleep apnea) Social [...] Sign Reading Time Taken Comments Blood Pressure 127/77 12/15/2016 8:00 PM EDT Pulse - - Temperature - - Respiratory Rate - - Oxygen Saturation - - Inhaled Oxygen Concentration - - Weight 107.5 kg (237 lb) 12/15/2016 8:00 PM EDT Height 157.5 cm (5' 2) 12/15/2016 8:00 PM EDT Body Mass Index 43.35 12/15/2016 8:00 PM EDT documented in this encounter Progress Notes * Libertad Nickerson MD - 12/15/2016 8:30 PM EDT Images from the original note were not included. REPORT OF DIAGNOTIC POLYSOMNOGRAM History Of Present Illness: Teresita Beltre is a 51 y.o. female who presents for a polysomnogram. Polysomnography: The patient's sleep was evaluated for one night at the [facility]. Sleep was monitored in accordance with recommended AASM guidelines. The recording also included oral/nasal airflow, chest and abdominal respiratory effort, nasal pressure, single channel EKG, intercostalEMG, bilateral tibialis EMG, and oxygen saturation (by pulse oximeter). Comment: - Sleep/EEG: Sleep efficiency: normal Sleep architecture: N3 relatively elevated for age, otherwise normal REM observed: yes; latency prolonged; REM percentage reduced at 11% Supine sleep observed: yes (35%) - Respiratory: Snoring: mild Obstructive respiratory events observed: yes AHI: 17 CMS AHI: 30 (includes apneas + only hypopneas associated with 4% or greater desaturation) Mean SpO2: 90% Total sleep time with SpO2<=89%:43 min Total sleep time with SpO2<=88%: 9 min Minimum SpO2: 80% - EKG: Normal sinus rhythm without significant ectopy. - EMG: Unremarkable. Assessment: .Teresita Beltre is a 51 y.o. female whose polysomnogram reveals obstructive sleep apnea, overall in the moderate range of severity. There were also a larger number of more subtle arousal-based events. Mean oxyhemoglobin saturation was adequate at 90%, although there was a significant amount of time spent with SpO2 <90% (43 minutes total with SpO2 <= 89%). No motor disorder identified. Study results relayed to patient via [facility]. Recommendations: 1. CPAP trial [facility] Sleep Disorders [facility] REPORT of Diagnostic Polysomnography Patient Name: Teresita Beltre Study Date: 12/15/2016 Age & Sex: 51 y.o. Female Height: 5'2 Date of : 1965 Weight: 237 lbs BMI: 43.3 Referring Provider: Recording Technologist: VERO MARIO Scoring Technologist: YUMIKO HOPKINS Sleep Fellow: Sleep Specialist: LIBERTAD NICKERSON M.D. Scoring Technologist Comments: ECG: NSR Ectopy: Description of Study: Diagnostic polysomnography was performed utilizing frontal, central & occipital EEG, EOG, submentalis EMG, oronasal thermocouple, nasal pressure, ECG, thoracic and abdominalinductance plethysmography, right and left anterior tibialis EMG, snore sensor, and pulse oximetry according to AASM established guidelines. Study Details & Sleep Architecture Diagnostic Start Time (Lights Off): 22:48:08 Total Recording Time: 431.5 min Diagnostic End Time (Lights On): 05:59:39 Total Sleep Time (minutes): 363.0 Total Num. of Stage Shifts: 135 Total Sleep Time (hrs:min): 6:3.0 Total Num. of Awakenings: 35 Sleep Onset Latency: 25.5 min Total Num. of Trans. to N1: 34 Sleep Efficiency: 84.1% Total Num. of REM Periods: 6 Stage Results: Time (minutes) %TST Latency (minutes) WASO: 43.0 - - N1: 29.0 8.0 0.0 N2: 131.5 36.2 3.5 N3: 162.5 44.8 20.0 REM: 40.0 11.0 219.5 196.0 (minus wake) Arousal Counts: NREM REM Total Spontaneous: 54 (10.0/hr) 12 (18.0/hr) 66 (10.9/hr) Sum of All Arousals: 129 (24.0/hr) 24 (36.0/hr) 153 (25.3/hr) Spontaneous arousals include only EEG arousals not associated with a respiratory event or PLM. Body Position: Supine Non-Supine Non-REM: 110.0 min 213.0 min REM: 17.5 min 22.5 min Total Sleep: 127.5 min (35.1%) 235.5 min (64.9%) Respiratory Events Apneas Obstructive Mixed Central Total Apneas Total Count: 1 0 0 1 Mean Duration (sec): 18 0 0 18 Longest Duration (sec): 17.9 0 0 18 Index (REM/NREM): 0.0 / 0.2 0.0 / 0.0 0.0 / 0.0 0.0/ 0.2 Index (Sup./Non-Sup.): 0.0 / 0.3 0.0 / 0.0 0.0 / 0.0 0.0/ 0.3 Index (Total): 0.2 0.0 0.0 0.2 Hypopneas & RERAs Hypopnea Definitions: Hypopnea* CMS Hypopnea 3% desat royce. Hypopneas All RERA Total Count: 99 83 182 0 Mean Duration (sec): 22.9 22.4 23 0 Longest Duration (sec): 54.3 54.3 54 0 Index (REM/NREM): 20/ 80 - - - Index (Sup./Non-Sup.): 16.5 / 16.3 - - - Index (Total): 16.4 13.7 30.1 - *[facility]-defined hypopneas include only hypopneas with a >=4% oxygen desaturation. Includes hypopneas with an arousal or with a 3%-4% desaturation. [facility] Hypopneas not included. Periodic Breathing Total Sleep Time Time (minutes) 0.0 Time (%Sleep Time) 0.0 AHI: Includes all apneas & all hypopneas associated with an arousal or a ? 3% desaturation. Supine Non-Sup. REM NREM Total Count: 67 116 34 149 183 Index (events/hr): 31.5 29.6 51.0 27.7 AHI = 30.2 [facility] AHI: Includes all apneas & only hypopneas associated with a ? 4% desaturation. Supine Non-Sup. REM NREM Total Count: 35 65 20 80 100 Index (events/hr): 16.5 16.6 30.0 14.9 CMS = 16.5 Obstructive AHI: Includes obstructive & mixed apneas as well as all hypopneas. Excludes centralapneas and RERAs. Supine Non-Sup. REM NREM Total Count: 67 116 34 149 183 Index (events/hr): 31.5 29.6 51.0 27.7 OAHI = 30.2 RDI: Includes all apneas, all hypopneas, all RERAs, and all ???Unsure??? events. Supine Non-Sup. REM NREM Total Count: 67 116 34.0 149.1 183 Index (events/hr): 31.5 29.6 51.0 27.7 RDI = 30.2 Oxygen Saturation Details SpO2 Awake NREM REM All Sleep ZEESHAN Report Sleep Mean: 92% 90% 90% 90% 3% ZEESHAN 30.8 27.1 Minimum: - 82% 80% 80% 4% ZEESHAN 18.6 16.0 SpO2 Awake (minutes) NREM (minutes) REM (minutes) All Sleep (minutes) ?90% 10.4 143.4 16.1 159.4 ?89% 5.2 35.6 7.0 42.6 ?88% 2.1 6.1 3.3 9.4 90-99% 45.5 179.1 24.0 203.1 80-89.9% 5.2 35.6 7.0 42.6 79-79.9% 0.0 0.0 0.0 0.0 60-69.9% 0.0 0.0 0.0 0.0 50-59.9% 0.0 0.0 0.0 0.0 ?50% 0.0 0.0 0.0 0.0 Cardiac Details Heart Rate (bpm) Total Study NREM REM All Sleep Minimum - 74 74 74 Maximum 96 96 96 96 Mean - 85 85 85 Limb Movement Details Periodic Limb Movements Total PLMs (and Index) PLMs w/ Arousals (and Index) Wake (after ???Lights Off???): 0 (0.0/hr) 0 (0.0/hr) NREM: 0 (0.0/hr) 0 (0.0/hr) REM: 0 (0.0/hr) 0 (0.0/hr) Total Sleep: 0 (0.0/hr) 0 (0.0/hr) Graphs PLMs Body Position documented in this encounter Plan of Treatment Upcoming Encounters Date Type Department Care Team (Late st Contact Info) Description 09/14/2023 11:00 AM EDT Office Visit [place] [address] Mague Johnson MD [facility] [place] [address] Scheduled Referrals Name Type Priority Associated Diagnoses Orde r Schedule Referral to Sleep Disorders Center Outpatient Referral Routine Disrupted sleep-wake cycle Hypersomnia Ordered: 11/02/2016 documented as of this encounter Visit Diagnoses Diagnosis BHARATI (obstructive sleep apnea) Obstructive sleep apnea (adult) (pediatric) documented in this encounter Care Teams Gypsum Roofer Relationship Specialty Start Date End Date Bernadette Childs MD [address] [place] [address] PCP - General 04/03/12 07/27/20 documented as of this encounter
--- OUTSIDE RECORDS SUMMARY | 2023-09-06 01:39 | XMS_ITS | Encounter Summary ---
[place] [address] Care Team Providers Care Spray Gun Operator Name Role Phone Bernadette Childs MD Primary Care Provider [phone] Encounter Details Date Type Department Care Team (Late st Contact Info) Description 10/18/2017 Telephone [place] [address] Cinthya Lino Social History Tobacco Use Types Packs/Day Years [...] encounter Miscellaneous Notes * Telephone Encounter - Cinthya Messina - 10/18/2017 12:55 PM EDT Spoke with Teresita, she has her EGD from 2017 that she is going to mail in, uploaded into eDH are her stress test & her ultra sound. She reported that her A1C the other day was 8.6 and that she willcheck again in two weeks and hopes for a reading below 8.0. documented in this encounter Plan of Treatment Upcoming Encounters Date Type Department Care Team (Late st Contact Info) Description 09/14/2023 11:00 AM EDT Office [place] [address] Mague Johnson MD [facility] [place] [address] documented as of this encounter Visit Diagnoses Not on filedocumented in this encounter Care Teams Spray Gun Operator Relationship Specialty Start Date End Date Bernadette Childs MD [address] [facility] [place] [address] PCP - General 04/03/12 07/27/20 documented as of this encounter
--- OUTSIDE RECORDS SUMMARY | 2023-09-06 01:39 | XMS_ITS | Encounter Summary ---
Author Organization [facility] [place] [address] Care Team Providers Care Road Marker Name Role Phone Bernadette Childs MD Primary Care Provider [phone] Encounter Details Date Type Department Care Team (Late st Contact Info) Description 06/24/2017 11:00 AM EDT Office Visit Sleep Center at [facility] [address] [place] [address] Veronica Rivera, [employer] [facility] DR SLEEP [place] [address] BHARATI on CPAP Social History Tobacco Use Types Packs/Day Years [...] PM EDT documented as of this encounter Patient Instructions * Patient Instructions* Veronica Rivera APRN - 06/24/2017 11:00 AM EDT Recommendations: --For now, continue on 8-13cw; when patient is better from pneumonia symptoms, consider trying 9-13cw for daytime sleepiness --For dry mouth: 1) adjust humidity and/or heated tube temperature, 2) consider over the counter Biotene mouth rinse, spray or gel, 3) consider room humidifier --For nasal congestion: 1) Try adjusting PAP humidity level, 2) Consider OTC saline nasal spray: 2 sprays per nostril twice daily, before affixing mask in evening and after removing mask in morning --Driving safety discussed, recommend patient not drive if drowsy, if drowsy while driving, warehouse puller and nap. --If bariatric surgery, we should f/u here once a few weeks before surgical date --Follow-up: RTC one year with HORACIO or KE documented in this encounter Progress Notes * Veronica Rivera APRN - 06/24/2017 11:00 AM EDT Sleep Medicine Follow-Up Note HPI: Ms. Teresita Beltre is a 52 y.o. female seen for follow-up of obstructive sleep apnea. Patientpresents today for follow-up in PAP clinic. She is getting over pneumonia, started in April and sheis still not feeling 100%. As a result, her usage is down. She is doing pulmonary rehab during thistime. Patient is considering gastric bypass surgery but is just starting the process with an informational session today at 2pm. HPI continues below. Sleep Study: 12/15/16 PSG - Respiratory: Snoring: mild Obstructive respiratory events observed: yes AHI: 17 CMS AHI: 30 (includes apneas + only hypopneas associated with 4% or greater desaturation) Mean SpO2: 90% Total sleep time with SpO2<=89%:43 min Total sleep time with SpO2<=88%: 9 min Minimum SpO2: 80% Weight: 237lbs CPAP titration, 12/28/16, Wt: 240lbs 1. AutoPAP set at a pressure range of 8-12 cm. XS airfit P10 nasal pillow mask used during study, although she reported some nasal irritation 2. Follow up appointment will be scheduled after initiating CPAP; call sooner with problems or questions. Treatment: APAP Device: AirSense 10 AutoSet, setup 01/31/17, pt has cell coverage at home Pressure: 8-13cw, could not tolerate 10-13cw because of having pneumonia, previousl 8-12cw Pressure Intolerance: none Interface/Mask: AirFit P10 for Her, XS pillows Difficulty tolerating mask interface: In beginning, hard because mask claustrophobia Chin Strap: Not needed Humidity on?: on auto HCC: [facility], [facility], [place] Insurance: Medicare Snoring: Doesn't think so, Dry Mouth/Throat: Very dry mouth and throat Difficulty Breathing Through Nose/Mouth Breathing: no, problems if nasal congestion if cold (none with pneumonia) Symptoms Improved?: Patient-reported last 4 scores: [facility] 10/26/2016 03/14/2017 06/17/2017 [facility] 4 3 2 Insomnia Severity Index 11 (Subthreshold insomnia) 6 (No clinically significant insomnia) 2 (No clinically significant insomnia) VR12 - Physical Component Summary 25.21 - - VR12 - Mental Component Summary 33.06 - - Nocturnal sleep quality improved: more consolidated, deeper Daytime symptoms improved (Daytime sleepiness/fatigue): hard to tell, fatigued and tired due to many health issues Naps: no Involuntary Dozing: no Driving: drives, denies Close calls related to sleepiness denies Accidents related to sleepiness denies Motor: PLMS: twitching less with PAP therapy Sleep Pattern: Bed/Recliner/Wedge: bed, flat Bedtime: 11-11:30p or later Lights out: immediate Latency: probably more quickly, under 30 mins now even with trazodone and ativan; before was variable - 30-120 min Awakenings: maybe a little less on average, 3-4x Wake time: 8a (takes dog out); usually will go back to bed, may or may not sleep Rise time: 10-11a Sleep Window: midnight ROS: ENT: Nasal Obstruction: None : Nocturia: none Patient Active Problem List Diagnosis Code ??? [...] I07.1 ??? BHARATI (obstructive sleep apnea) G47.33 Echo: 05/12/16, transthoracic LVEF of 80% Card Data Download: Date Range: 03/25/17-06/22/17 Pressure: 8-13cw 95% 11.5 Med 9.3 Residual AHI: 0.9 95th % Leak: 6.8 Median Leak: 0 Average Usage (Days Used/Hours): 4 hours 18 mins # Days of usage: 71/90 79% % Days used > 4 hours: 46% Previous Card Data Download: Date Range: 01/31/17-03/20/17 Pressure: 8-12cw 95% 11.5 Residual AHI: 0.8 95th % Leak: 11.6 Median Leak: 0 Average Usage (Days Used/Hours): 7 hours 5 mins # Days of usage: 49/49 100% % Days used > 4 hours: 98% Physical Exam: There were no vitals taken for this visit. General: 52 y.o. female, no distress; Respirations: Even and not labored at rest DERM: Skin Irritation: none Assessment Ms. Teresita Beltre is a 52 y.o. female seen for obstructive sleep apnea. The data download reveals the AHI and leak appear to be well controlled. Usage is down as patient has had pneumonia the past two months and is still not 100%, she reports.. Patient is doing well with the current pressures of 8-13cw--we had tried higher pressures of 10-14cw but she did not tolerate them. She is still having some daytime sleepiness/fatigue but it may be related to her pneumonia and once patient feels better, she can call our office if the daytime sleepiness continues and we could try a higher pressure of 9cw then, for 9-13cw. Ms. Beltre continues with benefit on PAP therapy. Reviewed remedies for very dry mouth/throat--there is no eveidence that she is breathing through her mouth and she would wake herself. Patient is pursuing bariatric surgery and is going to the informational meeting today. All recommendations below. Recommendations: --For now, continue on 8-13cw; when patient is better from pneumonia symptoms, consider trying 9-13cw for daytime sleepiness --Increase PAP usage once patient is better from pneumonia symptoms --For dry mouth: 1) adjust humidity and/or heated tube temperature, 2) consider over the counter Biotene mouth rinse, spray or gel, 3) consider room humidifier --For nasal congestion: 1) Try adjusting PAP humidity level, 2) Consider OTC saline nasal spray: 2 sprays per nostril twice daily, before affixing mask in evening and after removing mask in morning --Driving safety discussed, recommend patient not drive if drowsy, if drowsy while driving, warehouse puller and nap. --If bariatric surgery, we should f/u here once a few weeks before surgical date to adjust pressures --Follow-up: RTC one year with [facility] or [facility] The patient indicates understanding of these issues and agrees with the plan. Veronica Rivera APRN Cc: Bernadette Childs MD documented in this encounter Plan of Treatment Upcoming Encounters Date Type Department Care Team (Late st Contact Info) Description 09/14/2023 11:00 AM EDT Office [place] [address] Mague Johnson MD [facility] DR ENDOCRIN[place] [address] documented as of this encounter Visit Diagnoses Diagnosis BHARATI on CPAP Obstructive sleep apnea (adult) (pediatric) documented in this encounter Care Teams Road Marker Relationship Specialty Start Date End Date Bernadette Childs MD [address] [place] [address] PCP - General 04/03/12 07/27/20 documented as of this encounter
--- OUTSIDE RECORDS SUMMARY | 2023-09-06 01:39 | XMS_ITS | Encounter Summary ---
Author Organization [facility] Address [facility] [place] [address] Care Team Providers Care Production Illustrator Name Role Phone Bernadette Childs MD Primary Care Provider [phone] Encounter Details Date Type Department Care Team (Late st Contact Info) Description 08/19/2016 7:56 AM EDT Hospital Encounter Non-Invasive [place] [address] Cornelius Sullivan II, MD [facility] [place] [address] FIGUEREDO (dyspnea on exertion); Lightheadedness Discharge Disposition: Home Social History Tobacco Use [...] 11:00 AM EDT Office [place] [address] Mague Johnson MD [facility] [place] [address] documented as of this encounter Procedures Procedure Name Priority Date/Time Associated Diagnosis Comments CARDIOPULMONARY EXERCISE TEST (CPET)-DONE BY CARDIOLOGY Routine 08/19/2016 9:52 AM EDT FIGUEREDO (dyspnea on exertion) Lightheadedness documented in this encounter Results * Cardiology Pulmonary Stress Test (08/19/2016 9:52 AM EDT) Anatomical Region Laterality Modality Other Cornelius Sullivan II, MD CARDIAC SERVICE S ORDERABLES documented in this encounter Visit Diagnoses Diagnosis FIGUEREDO (dyspnea on exertion) Other dyspnea and respiratory abnormality Lightheadedness Dizziness and giddiness documented in this encounter Care Teams Production Illustrator Relationship Specialty Start Date End Date Bernadette Childs MD [address] [place] [address] PCP - General 04/03/12 07/27/20 documented as of this encounter
--- OUTSIDE RECORDS SUMMARY | 2023-09-06 01:39 | XMS_ITS | Encounter Summary ---
Author Organization [facility] [place] [address] Care Team Providers Care Earth Moving Technician Name Role Phone Bernadette Childs MD Primary Care Provider [phone] Reason for Referral * Diagnostic Test (Routine) - Closed Specialty Diagnoses / Procedures Referred By Víctor t Referred To Contact Radiology Diagnoses FIGUEREDO (dyspnea on exertion) Type 2 diabetes mellitus without complication, with long-term current use of insulin Procedures NM Pharmacologic Stress Myocardial Perfusion Cornelius Sullivan II, MD [facility] [place] [address] [place] [address] Referral ID Status Reason Start Date Expiration Date V isits Requested Visits Authorized [id number] Closed Specialty Service Requested 09/23/2017 09/23/2018 4 4 Reason for Visit * Diagnostic Test (Routine) - Closed Specialty Diagnoses / Procedures Referred By Controdriguez thomas Referred To Contact Radiology Diagnoses FIGUEREDO (dyspnea on exertion) Type 2 diabetes mellitus without complication, with long-term current use of insulin Procedures NM Pharmacologic Stress Myocardial Perfusion Cornelius Sullivan II, MD [facility] [place] [address] [place] [address] Referral ID Status Reason Start Date Expiration Date V isits Requested Visits Authorized [id number] Closed Specialty Service Requested 09/23/2017 09/23/2018 4 4 Encounter Details Date Type Department Care Team (Late st Contact Info) Description 10/14/2017 8:02 AM EDT Hospital Encounter [place] [address] Cornelius Sullivan II, MD [facility] [place] [address] FIGUEREDO (dyspnea on exertion); Type [...] AM EDT Office Visit [place] [address] Mague Johnson MD [facility] [place] [address] documented as of this encounter Procedures Procedure Name Priority Date/Time Associated Diagnosis Comments NM PHARMACOLOGIC STRESS AND REST MYOCARDIAL PERFUSION Routine 10/14/2017 9:20 AM EDT FIGUEREDO (dyspnea on exertion) Type 2 diabetes mellitus without complication, with long-term current use of insulin documented in this encounter Results * NM Pharmacologic Stress Myocardial Perfusion (10/14/2017 [...] use of insulin documented in this encounter Administered Medications Inactive Administered Medications - up to 3 most recent administrations Medication Order MAR Action Action Date Dose Rate Site technetium (Tc-99m) sestamibi injection 7.5 mCi 7.5 mCi, Intravenous, ONCE PRN, 1 dose, Starting on Tue10/14/17 at 0815, Until Tue10/14/17 at 0815, Per Protocol, Routine Given 10/14/2017 8:15 AM EDT 7.5 mCi documented in this encounter Care Teams Earth Moving Technician Relationship Specialty Start Date End Date Bernadette Childs MD [address] [place] [address] PCP - General 04/03/12 07/27/20 documented as of this encounter
--- OUTSIDE RECORDS SUMMARY | 2023-09-06 01:39 | XMS_ITS | Encounter Summary ---
Author Organization [facility] Address [facility] [place] [address] Care Team Providers Care Cap Maker Name Role Phone Bernadette Childs MD Primary Care Provider [phone] Reason for Visit * Consultation (Routine) - Closed Specialty Diagnoses / Procedures Referred By Víctor thomas Referred To Contact Sleep Center Diagnoses Disrupted sleep-wake cycle Hypersomnia Procedures PRG POLYLSOM 6+ YRS SLEEP W CPAP W 4+ ADDL ERIKA ATTND Libertad Nickerson MD [facility] [place] [address] [facility] [address] [place] [address] Referral ID Status Reason Start Date Expiration Date V isits Requested Visits Authorized [id number] Closed Test Only 11/02/2016 11/02/2017 1 1 Encounter Details Date Type Department Care Team (Late st Contact Info) Description 12/28/2016 8:30 PM EST Procedure visit Sleep Center at [facility] [address] [place] [address] Libertad Nickerson MD [facility] [place] [address] BHARATI (obstructive sleep apnea) Social [...] Sign Reading Time Taken Comments Blood Pressure 143/79 12/28/2016 8:00 PM EST Pulse 84 12/28/2016 8:00 PM EST Temperature - - Respiratory Rate - - Oxygen Saturation - - Inhaled Oxygen Concentration - - Weight 108.9 kg (240 lb) 12/28/2016 8:00 PM EST Height 157.5 cm (5' 2) 12/28/2016 8:00 PM EST Body Mass Index 43.9 12/28/2016 8:00 PM EST documented in this encounter Progress Notes * Libertad Nickerson MD - 12/28/2016 8:30 PM EST Images from the original note were not included. REPORT OF POSITIVE PRESSURE TITRATION History Of Present Illness: Teresita Beltre is [...] - Sleep/EEG: Sleep efficiency: mildly reduced at 78% Sleep architecture: normal REM Observed: minimal brief fragment observed; latency prolonged Supine position observed: yes (32%) - Respiratory: CPAP was titrated from a pressure of 4cm to 14cm. There was good control of obstructive events in NREM non-supine at CPAP 8cm. In supine sleep NREM, there was good control at 10cm. Wasseen for a very brief REM fragment supine at CPAP 10cm. Hypopneas seen, although leak also elevated. Occasional scattered hypopneas seen at higher pressures, although there was generally good controlof obstructive events. Mask leak otherwise generally controlled. No hypoxemia observed. Mean SaO2: 93% Minimum SaO2: 88% - EKG: Normal sinus rhythm without significant ectopy. - EMG: Unremarkable Assessment: Teresita Beltre is a 51 y.o. female whose polysomnogram demonstrated good control of obstructive events in NREM sleep at 8cm while non-supine and 10cm while supine. Only a very brief REM fragment was observed - hypopneas present at 10cm although leak also elevated at that time. Mask leak was otherwise well controlled. No hypoxemia present. No motor disorder identified. Results [facility]to [facility]. Advised to identify mask preference and DME preference. Recommendations: 1. AutoPAP set at a pressure range of 8-12 cm. XS airfit P10 nasal pillow mask used during study, although she reported some nasal irritation 2. Follow up appointment will be scheduled after initiating CPAP; call sooner with problems or questions. [facility] REPORT of TITRATION Polysomnography Patient Name: Teresita Beltre Study Date: 12/28/2016 Age & Sex: 51 y.o. Female Height: 5'2 Date of : 1965 Weight: 240 lbs BMI: 43.9 Referring Provider: Recording Technologist: TAMMIE AKINS Scoring Technologist: JANIE TORRSE, MADY, TAMMIE, RST Sleep Fellow: Sleep Specialist: LIBERTAD NICKERSON M.D. Scoring Technologist Comments: ECG: NSR Ectopy: None noted. Description of Study: Diagnostic polysomnography was performed utilizing frontal, central & occipital EEG, EOG, submentalis EMG, oronasal thermocouple, nasal pressure, ECG, thoracic and abdominalinductance plethysmography, right and left anterior tibialis EMG, snore sensor, and pulse oximetry according to AASM established guidelines. Study Details & Sleep Architecture Diagnostic Start Time (Lights Off): 21:58:32 Total Recording Time: 500.0 min Diagnostic End Time (Lights On): 06:18:33 Total Sleep Time (minutes): 388.5 Total Num. of Stage Shifts: 54 Total Sleep Time (hrs:min): 6:28.5 Total Num. of Awakenings: 10 Sleep Onset Latency: 36.0 min Total Num. of Trans. to N1: 20 Sleep Efficiency: 77.7% Total Num. of REM Periods: 1 Stage Results: Time (minutes) %TST Latency (minutes) WASO: 75.5 - - N1: 44.5 11.5 0.0 N2: 265.5 68.3 6.5 N3: 76.0 19.6 14.5 REM: 2.5 0.6 337.0 302.0 (minus wake) Arousal Counts: NREM REM Total Spontaneous: 123 (19.1/hr) 1 (24.0/hr) 124 (19.2/hr) Sum of All Arousals: 189 (29.4/hr) 2 (48.0/hr) 191 (29.5/hr) Spontaneous arousals include only EEG arousals not associated with a respiratory event or PLM. Body Position: Supine Non-Supine Non-REM: 122.0 min 264.0 min REM: 2.5 min 0.0 min Total Sleep: 124.5 min (32.0%) 264.0 min (68.0%) Respiratory Events Apneas Obstructive Mixed Central Total Apneas Total Count: 0 0 2 2 Mean Duration (sec): 0 0 11 11 Longest Duration (sec): 0 0 11.5 12 Index (REM/NREM): 0.0 / 0.0 0.0 / 0.0 0.0 / 0.3 0.0/ 0.3 Index (Sup./Non-Sup.): 0.0 / 0.0 0.0 / 0.0 0.0 / 0.5 0.0/ 0.5 Index (Total): 0.0 0.0 0.3 0.3 Hypopneas & RERAs Hypopnea Definitions: Hypopnea* CMS Hypopnea 3% desat royce. Hypopneas All RERA Total Count: 3 58 61 10 Mean Duration (sec): 14.4 14.3 14 19.9 Longest Duration (sec): 16.4 27.3 27 23.7 Index (REM/NREM): 0/ 5 24.0/ 9.3 24.0/ 11.2 Index (Sup./Non-Sup.): 1.4 / 0.0 19.8/ 4.5 3.4 / 0.7 Index (Total): 0.5 8.9 9.4 1.5 *CMS-defined hypopneas include only hypopneas with a >=4% oxygen desaturation. Includes hypopneas with an arousal or with a 3%-4% desaturation. [facility] Hypopneas not included. Periodic Breathing Total Sleep Time Time (minutes) 0.0 Time (%Sleep Time) 0.0 AHI: Includes all apneas & all hypopneas associated with an arousal or a ? 3% desaturation. Supine Non-Sup. REM NREM Total Count: 41 22 1 62 63 Index (events/hr): 19.8 5.0 24.0 9.6 AHI = 9.7 CMS AHI: Includes all apneas & only hypopneas associated with a ? 4% desaturation. Supine Non-Sup. REM NREM Total Count: 3 2 0 5 5 Index (events/hr): 1.4 0.5 0.0 0.8 CMS = 0.8 Obstructive AHI: Includes obstructive & mixed apneas as well as all hypopneas. Excludes centralapneas and RERAs. Supine Non-Sup. REM NREM Total Count: 41 20 1 60 61 Index (events/hr): 19.8 4.5 24.0 9.3 OAHI = 9.4 RDI: Includes all apneas, all hypopneas, all RERAs, and all ???Unsure??? events. Supine Non-Sup. REM NREM Total Count: 48 25 1.0 72.1 73 Index (events/hr): 23.1 5.7 24.0 11.2 RDI = 11.3 Oxygen Saturation Details (Overall) SpO2 Awake NREM REM All Sleep ZEESHAN Report Sleep Mean: 95% 93% 92% 93% 3% ZEESHAN 5.3 5.6 Minimum: - 88% 90% 88% 4% ZEESHAN 1.1 0.8 SpO2 Awake (minutes) NREM (minutes) REM (minutes) All Sleep (minutes) ?90% 0.4 0.1 0.0 0.1 ?89% 0.4 0.0 0.0 0.0 ?88% 0.3 0.0 0.0 0.0 90-99% 102.4 385.8 2.5 388.3 80-89.9% 0.1 0.0 0.0 0.0 79-79.9% 0.0 0.0 0.0 0.0 60-69.9% 0.0 0.0 0.0 0.0 50-59.9% 0.0 0.0 0.0 0.0 ?50% 0.3 0.0 0.0 0.0 Cardiac Details Heart Rate (bpm) Total Study NREM REM All Sleep Minimum - 52 57 52 Maximum 101 95 84 95 Mean - 73 68 73 Limb Movement Details Periodic Limb Movements Total PLMs (and Index) PLMs w/ Arousals (and Index) Wake (after ???Lights Off???): 0 (0.0/hr) 0 (0.0/hr) NREM: 23 (3.6/hr) 11 (1.7/hr) REM: 0 (0.0/hr) 0 (0.0/hr) Total Sleep: 23 (3.6/hr) 11 (1.7/hr) Pressure Analysis Time (hh:mm:ss) IP/EP/O2 TST Supine Non-Sup. REM Non-REM REM Sup. 4/4/0 5/5/0 6/6/0 7/7/0 8/8/0 9/9/0 10/10/0 11/11/0 12/12/0 13/13/0 14/14/0 0:00:0.0 0:18:48.0 1:32:41.0 0:32:58.0 0:08:29.0 1:03:34.0 1:33:42.0 0:08:3.0 0:25:24.0 0:09:55.0 0:34:56.0 0:00:0.0 0:00:0.0 0:00:0.0 0:00:0.0 0:00:0.0 0:00:0.0 1:15:42.0 0:08:3.0 0:25:24.0 0:09:55.0 0:05:26.0 0:00:0.0 0:18:48.0 1:32:41.0 0:32:58.0 0:08:29.0 1:03:34.0 0:18:0.0 0:00:0.0 0:00:0.0 0:00:0.0 0:29:30.0 0:00:0.0 0:00:0.0 0:00:0.0 0:00:0.0 0:00:0.0 0:00:0.0 0:02:30.0 0:00:0.0 0:00:0.0 0:00:0.0 0:00:0.0 0:00:0.0 0:18:48.0 1:32:41.0 0:32:58.0 0:08:29.0 1:03:34.0 1:31:12.0 0:08:3.0 0:25:24.0 0:09:55.0 0:34:56.0 0:00:0.0 0:00:0.0 0:00:0.0 0:00:0.0 0:00:0.0 0:00:0.0 0:02:30.0 0:00:0.0 0:00:0.0 0:00:0.0 0:00:0.0 Respiratory Event Counts IP/EP/O2 Obstr. Ap. Mixed Ap. Central Ap. Hypopneas* RERAs 4/4/0 5/5/0 6/6/0 7/7/0 8/8/0 9/9/0 10/10/0 11/11/0 12/12/0 13/13/0 14/14/0 0 0 0 0 0 0 0 0 0 0 0 0 0 0 0 0 0 0 0 0 0 0 0 0 0 1 0 0 0 0 0 0 1 0 7 0 1 2 9 15 2 11 9 5 0 0 0 2 0 0 2 0 0 3 3 *Includes all types of hypopneas: those associated with arousals or ?3% desaturations. Respiratory Indices (events per hour) IP/EP/O2 OAI DALTON LANA HI* RDI 4/4/0 5/5/0 6/6/0 7/7/0 8/8/0 9/9/0 10/10/0 11/11/0 12/12/0 13/13/0 14/14/0 0.0 0.0 0.0 0.0 0.0 0.0 0.0 0.0 0.0 0.0 0.0 0.0 0.0 0.0 0.0 0.0 0.0 0.0 0.0 0.0 0.0 0.0 0.0 0.0 0.0 1.8 0.0 0.0 0.0 0.0 0.0 0.0 1.7 0.0 22.3 0.0 1.8 14.1 8.5 9.6 14.9 26.0 54.5 8.6 0.0 22.3 0.0 7.3 14.1 8.5 10.9 14.9 26.0 72.6 15.5 *Includes all types of hypopneas: those associated with arousals or ?3% desaturations. Respiratory Indices (events per hour) IP/EP/O2 AHI Supine Non-Sup. REM Non-REM 4/4/0 5/5/0 6/6/0 7/7/0 8/8/0 9/9/0 10/0 11/0 1212/0 13/13/0 14/14/0 0.0 22.3 0.0 3.6 14.1 8.5 9.6 14.9 26.0 54.5 10.3 0.0 0.0 0.0 0.0 0.0 0.0 11.9 14.9 26.0 54.5 44.2 0 22.3 0.0 3.6 14.2 8.5 0.0 0 0 0 4.1 0 0 0 0 0 0 0 0 0 0 0 0 0 0 0.0 0.0 0.0 0.0 0.0 0.0 24.0 0.0 0.0 0.0 0.0 0.0 22.3 0.0 3.6 14.1 8.5 9.2 14.9 26.0 54.5 10.3 *Includes all types of hypopneas: those associated with arousals or ?3% desaturations. Oxygen Saturations IP/EP/O2 Minimum Mean 4/4/0 5/5/0 6/6/0 7/7/0 8/8/0 9/9/0 10/10/0 11/11/0 12/12/0 13/13/0 14/14/0 1000 92 91 88 92 91 90 91 90 92 93 0 94 92 94 94 94 92 93 94 95 96 Graphs CPAP/Bi-Level PLMs Body Position documented in this encounter Plan of Treatment Upcoming Encounters Date Type Department Care Team (Late st Contact Info) Description 09/14/2023 11:00 AM EDT Office [place] [address] Mague Johnson MD [facility] [place] [address] Scheduled Referrals Name Type Priority Associated Diagnoses Orde r Schedule Referral to Sleep Disorders Center Outpatient Referral Routine Disrupted sleep-wake cycle Hypersomnia Ordered: 11/02/2016 documented as of this encounter Visit Diagnoses Diagnosis BHARATI (obstructive sleep apnea) Obstructive sleep apnea (adult) (pediatric) documented in this encounter Care Teams Cap Maker Relationship Specialty Start Date End Date Bernadette Childs MD [address] [place] [address] PCP - General 04/03/12 07/27/20 documented as of this encounter
--- OUTSIDE RECORDS SUMMARY | 2023-09-06 01:39 | XMS_ITS | Encounter Summary ---
Author Organization [facility] [place] [address] Care Team Providers Care Surgical Consultant Name Role Phone Bernadette Childs MD Primary Care Provider [phone] Encounter Details Date Type Department Care Team (Late st Contact Info) Description 11/02/2016 Orders Only Sleep Center at [facility] [address] [place] [address] Bhumika Nickerson MD [facility] [place] [address] Social History Tobacco Use Types Packs/Day Years [...] as of this encounter Progress Notes * Bhumika Nickerson MD - 11/02/2016 3:54 PM EDT Polysomnogram Order Form Room # Technologist Assignment: To be read by on PSG Patient Information Date of study: : 1965 Name: Teresita Beltre Height: 62in Weight: 239# 51 y.o. female Normal sleep hours: 11-8 Arrival Time: Physical/Mobility Limitations: No Cognitive Limitations: No Requires Male Tech: No Requires Female Tech: No Requires 1:1 Care: No Requires Parent/Caregiver: [place] of Parent/Caregiver staying: Using Home Oxygen: No At home sleeps in: Bed PSG Indications: some snoring and nocturnal gasping, poor sleep, sleepiness/fatigue -- r/o BHARATI Other Medical Conditions: h/o restrictive pericarditis s/p pericardial stripping; restrictive lung disease with chronic SOB; diastolic heart failure, diabetes, depression/anxiety PSG Orders Type of study: diagnostic PSG -- split for AHI>30 Additional data required: no Special instructions: no *Initiate CPAP/BPAP/oxygen per previously determined protocols unless otherwise specified. documented in this encounter Plan of Treatment Upcoming Encounters Date Type Department Care Team (Late st Contact Info) Description 09/14/2023 11:00 AM EDT Office [place] [address] Mague Johnson MD [facility] [place] [address] documented as of this encounter Visit Diagnoses Not on filedocumented in this encounter Care Teams Surgical Consultant Relationship Specialty Start Date End Date Bernadette Childs MD [address] [place] [address] [address] [place] [address] PCP - General 04/03/12 07/27/20 documented as of this encounter
--- OUTSIDE RECORDS SUMMARY | 2023-09-06 01:39 | XMS_ITS | Encounter Summary ---
Author Organization [facility] Address [facility] [place] [address] Care Team Providers Care Bull Gang Worker Name Role Phone Benradette Childs MD Primary Care Provider [phone] Reason for Visit * Reason Comments Follow-up * Consultation (Routine) - Closed Specialty Diagnoses / Procedures Referred By Víctor thomas Referred To Contact Pulmonology Diagnoses FIGUEREDO (dyspnea on exertion) SOB Procedures not Dr. Larson please Cornelius Sullivan II, MD [facility] [place] [address] [facility] Pulmonology [address] [place] [address] Referral ID Status Reason Start Date Expiration Date V isits Requested Visits Authorized [id number] Closed Consult, Test & Treat 08/31/2016 08/31/2017 1 1 Encounter Details Date Type Department Care Team (Late st Contact Info) Description 11/30/2016 2:00 PM EDT Office [place] [address] Neena Tavares MD [facility] [place] [address] Healthcare maintenance; Mild persistent asthma, uncomplicated; Exertional dyspnea Social History Tobacco Use Types Packs/Day Years [...] Sign Reading Time Taken Comments Blood Pressure 116/75 11/30/2016 2:10 PM EDT Pulse 101 11/30/2016 2:10 PM EDT Temperature - - Respiratory Rate 20 11/30/2016 2:10 PM EDT Oxygen Saturation 99% 11/30/2016 2:10 PM EDT Inhaled Oxygen Concentration - - Weight 107 kg (236 lb) 11/30/2016 2:10 PM EDT Height 157.5 cm (5' 2) 11/30/2016 2:10 PM EDT Body Mass Index 43.16 11/30/2016 2:10 PM EDT documented in this encounter Progress Notes * Neena Tavares MD - 11/30/2016 2:00 PM EDT CLINIC Follow up Note Original consult: Last visit: 02/05/2014 I have personally interviewed and examined the patient, reviewed history, radiographic studies( if any) and laboratory data(if any). Problems: -Exertional dyspnea. ( since pericardial surgery). -restrictive impairment on PFT. -plates like/ linear atelectasis -s/p pericardial surgery after pericarditis with ghada influenza infection in 2013. HPI: This is a 51 y.o. female, return to the clinic for reevaluation on her exertional dyspnea. I saw her about 3 years ago. The below is a summary from the previous visit in 2013. I don't have an unifying diagnosis. However, I think all of ( probably) impaired lung/thoracic compliance after thoracic surgery, obesity and deconditioning are contributing to poor lung expansionand focal b/l atelectasis and exertional dyspnea. ?? Because there is no evidence for respiratory muscle weakness ( i.e. negative sniff and excellent MIP of 121%), I need to assume either thoracic or lung compliance ( or both ) is low, to explain poor lung expansion suggested by plate like atelectasis and low total lung capacity. Obesity and chest surgery can reduce thoracic compliance. Lung parenchymal diseases, such as interstitial lung diseases(ILD), can cause low compliance of the lungs, though such ILD findings are missing on the CT . I am not sure if long standing constrictive pericarditis and lung congestion has possibly caused any pathological change in the lungs before the pericardial stripping. For example, long standing CHF could cause hemosiderosis of the lung, however, I would expect see some changes by CT, which I don't. ?? SLE could cause a condition called shrinking lung which could fit the picture, however she does not have symptoms for SLE. She had apparently negative NADER ( this does not preclude SLE completely but makes it unlikely). Pericarditis was associated with flu infection and cirrhosis was cardiac, reportedly. Overall this possibility seems unlikely. ?? I have a lengthy discussion with her and her . I suggested watchful observation for several months, while she works on exercise and weight loss and they agreed with the plan. They are not keenat CPET at this time but we can pursue this option as necessary if things do not improve. ?? I have given her respiratory muscle strainer tender. Advised her to use a couple of times daily to possibleimprove atelectasis. She wants to see how she does and call us back for appointment accordingly. Therefore I did not make a follow up appointment today. Today's visit: -over the last 3 years, she feels she is getting worse, particularly dry cough in addition to exertional dyspnea. -she had another PFT in 02/2016, which showed no significant changes in spirometry nor DLco ( indeedDLco is better) as compared to 2014. Interestingly, however it did show significant response to bronchodilator ( 200ml 12 %). She has two dogs and cats. She is a former smoker. -She had CPET in 07/2016, which was reported to suggest a multifactorial functional limitation, including mildly diminished cardiac reserve and at least in part to deconditioning. ( It is notable that even her PFT showed restrictive etiology, there is a clear AT, Resp reserve was NOT small, there was no desaturation ). PMHx: Patient Active Problem List Diagnosis Code ??? [...] Hyperlipidemia E78.5 ??? Tricuspid valve insufficiency I07.1 Social Hx: Social History Substance Use Topics ??? Smoking status: Former Smoker Packs/day: 0.25 Years: 15.00 Types: Cigarettes Quit date: 02/20/1996 ??? Smokeless tobacco: Never Used ??? Alcohol use No Allergy: Allergies Allergen Reactions ??? Latex Rash ??? Scopolamine Itching and Rash Itching erythematous rash resolved with scop patch removal. ??? Adhesive Bandage Localized Reaction ??? Amoxicillin Trihydrate Rash ??? Penicillins Rash ??? Sulfa (Sulfonamide Antibiotics) Rash Medications: Outpatient Prescriptions Marked as Taking for the 11/30/16 encounter (Office Visit) with Neena Tavares MD Medication Sig Dispense Refill ??? albuterol 90 mcg/actuation HFA Aerosol Inhaler Inhale 2 puffs into the lungs 4 times daily as needed for Wheezing (VENTOLIN). Use with spacer ??? omeprazole (PRILOSEC) 40 mg Capsule, Delayed Release(E.C.) Take 40 mg by mouth daily. ??? escitalopram (LEXAPRO) 20 mg Tablet Take 20 mg by mouth daily. ??? glipiZIDE (GLUCOTROL) 10 mg Tablet Take [...] mouth every 6 hours as needed. ??? HYDROmorphone (DILAUDID) 2 mg tablet Take 2 mg by mouth every 4 hours as needed. ??? traZODone (DESYREL) 100 mg tablet Take 100 mg by mouth nightly. ROS: x: positive. [ x ] Shortness of breath [ ] Abdominal pain or bloating [x ] Frequent or chronic cough [ ] Weight gain or loss [ ] Coughing up blood [ ] Chest pain [ ] Nose, sinus, mouth, throat problems [ ] Palpitations or flutter [ ] Fevers or severe chills [ ] Swelling of hands feet ankles [ ] Night sweats [ ] Convulsions or seizures [ ] Enlarged or swollen lymph glands [ ] Frequent or severe headache [ ] Skin disease or rash [ ] Fainting or loss of consciousness [ ] Easy bruising or bleeding [ ] Extreme fatigue or weakness [ ] Significant joint pains or stiffness [ ] Depression [ ] Changes in bowel habits [ ] Changes in sleep pattern [ ] Changes in appetite [x ] All unmarked were reviewed and found negative. [ ] other system: Vitals and Physical Exam: BP 116/75 Pulse 101 Resp 20 Ht 157.5 cm (5' 2) Wt (!) 107 kg (236 lb) SpO2 99% BMI 43.16 kg/m2 Gen: comfortable. Normal breathing pattern and rate. HEENT: No pallor no icteric sclerae Neck: No stridor Chest: CTA without wheezing/rhonchi/crackles Symmetric excursion. Cor: RRR, S1S2, No MRG. Abd: ND Extrem: no C/C/E. Diagnostic studies: -CXR: -CT: 12/25/2013 OSH ( to my eyes), no parenchymal lung disease. Plate/linear atelectasis in b/l lungs. PFTs date FVC FEV1 FEV/FVC VC TLC RV RV/TLC DsbHb SpO2 MIP/MEP ?? 11/27/2013 2.12 63 1.63 61 77.4 64 58 2.89 45 78 62 15.02 93 RA ## ? 12/25/2013 ? 121/73 ?03/02/2016 ??2.02 60 ??1.57 59 # ??78 ?71 15.64 ? ## reportedly no ambulatory desat ( see Dr. Larson's note on 12/24/2013 ) # 200ML 12 % increase after bronchodilator. ?? -ECHO: 08/08/2013 SUMMARY: 1. 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 2. The left ventricular chamber size is normal. There is normal global left ventricular systolic function. Ejection fraction is estimated to be 60%. Doppler assessment is consistent with normal left sided filling pressure. 3. The right ventricle is normal in size. Right ventricular global systolic function is normal. The estimated pulmonary artery systolic pressure is 23 mmHg. 4. There is no significant valve disease. 5. No effusion is present. There is no evidence for constrictive physiology. 6. The inferior vena cava appears normal in size. The estimated right atrial pressure is 3 mmHg. 7. See remainder of report for additional findings. Compared to the TTE performed 03/14/13, significant changes have occurred. -Serology: -PET: -Biopsy: -Other: 02/05/2014 Sniff testing MPRESSION: Normal sniff test without evidence of diaphragm paralysis. ?? Labs Lab Results Component Value Date ?? WBC 9.4 05/28/2013 ?? RBC 5.31* 05/28/2013 ?? HGB 14.5 05/28/2013 ?? HCT 42.9 05/28/2013 ?? MCV 80.8 05/28/2013 ?? MCH 27.3 05/28/2013 ?? MCHC 33.8 05/28/2013 ?? PLATELET 403* 05/28/2013 ?? RDWCV 17.6* 05/28/2013 ? Summary: -Exertional dyspnea. ( since pericardial surgery). -restrictive impairment on PFT. -plates like/ linear atelectasis -s/p pericardial surgery after pericarditis with ghada influenza infection in 2013. Impression/recommendation: -This is a 51 y.o. female, return to the clinic for reevaluation on her exertional dyspnea. I had not seen her for the last 3 years. She continues to have exertional dyspnea, which she feels getting worse over the last 3 years. -PFT was repeated and essentially unchanged to 2013, showed no significant deterioration, in contrast to subjective feeling of symptomatic progression. -Though neither of CT nor MIP/MEP were repeated at this time, I doubt significant change on those, since her PFT itself is very stable. With clear lung parenchyma and normal MIP/MEP seen previously, I can not come up with clear pulmonary pathology to explain the restrictive impairment, other than explaining it by her body habitus( I am not sure if past chest surgery has made any impact on thorax compliance). -Her CPET showed clear AT, normal ( not small ) respiratory reserve, and no desaturation, suggesting NEITHER of her ventilation NOR oxygenation is probably the major double bottom driver of the dyspnea. ( I don't see the data on ETPCO2 in the scanned report. If it does not rise with work, it is also assuring forlack of ventilatory limitation). -Her new PFT in 02/2016 showed a significant bronchodilator response. This is fairly non-specific finding and can be observed with heart failure. However, with persistent dry cough ( pt was coughing during this visit frequently) , I feel it is worth giving her a trial of inhaled corticosteroid for amonth or two, especially since we are still puzzled on the nature of her dyspnea. The course is so atypical for asthma and admittedly I don't have very high suspicion, on the other hand however, thispractice is reasonably safe, especially with a good technique over a couple of month. I discussed with her, by explaining a risk and benefit and she agreed to proceed. I performed a demonstration of the technique with a spacer. I have given her a spacer device today. -meanwhile, I advised her importance of exercise and weight reduction. -will have her back in a couple of month. -The above recommendations on FIGUEREDO were extensively discussed with the patient on this visit and questions were answered. I advised the patient to call us back for any questions, concerns or changes in the interim. - I spent more than 45 minutes of this 60 minute visit in counseling the patient, reviewing charts/records/labs/tests, or discussion with other health care providers. This does NOT include the time spent in ( ) Smoking cessation counseling ( ) inhaler technique demonstration and teaching. ( checked if applicable) - I personally reviewed ( ) radiographic images. ( ) pulmonary function testing DATA ( ) Laboratory DATA ( apply if checked ) Addendum addendum, we checked the feNO and it was not elevated at 25. documented in this encounter Plan of Treatment Upcoming Encounters Date Type Department Care Team (Late st Contact Info) Description 09/14/2023 11:00 AM EDT Office Visit [place] [address] Mague Johnson MD [facility] [place] [address] documented as of this encounter Results * Pulmonary Function Testing (11/30/2016 5:10 PM EDT) Narrative Garry Mcmanus MD - 11/30/2016 5:10 PM EDT Garry Mcmanus MD ? 11/30/2016 ??5:10 PM Fraction of Exhaled Nitric Oxide (FeNO) Measurement Nitric oxide (NO) is recognized as a biomarker for eosinophilic airway inflammation, as is generally the case in asthma. ?? Measuring NO in exhaled breath can help determine whether non-specific respiratory symptoms of wheezing, dyspnea, and cough are due to asthma. ??However, there are several important limitations of using this test to diagnose and treat asthma. ?? Guidelines from a 2011 [place] [employer] (ATS) executive summary on the clinical use of FeNO are listed. Diagnostic Use: ?? A FeNO <25 ppb suggests that eosinophilic airway inflammation, and by inference, clinical responsiveness to corticosteroids, is less likely. ?? A FeNO >50 ppb indicates that eosinophilic airway inflammation and responsiveness to corticosteroids in symptomatic patients are both likely. ?? FeNO levels between 25 and 50 ppb should be interpreted cautiously and in context. ?? Persistent and/or high allergen exposure is a factor associated with higher FeNO levels (>50 ppb). ?? The presence or absence of respiratory symptoms is an important consideration when interpreting FeNO. Monitoring Response: ?? A minimally important decrease in FeNO is defined as >20% for values >50 ppb or more than 10 ppb for values <50 ppb from one visit to the next. ?? A reduction of an elevated FeNO of >20% occurring 2-6 weeks after anti-inflammatory treatment initiation is consistent with therapeutic efficacy. The FeNO in ppb for this patient at today's visit was ??25 GARRY MCMANUS MD 11/30/2016 5:10 PM Neena Tavares MD PFT ORDERABLES documented in this encounter Visit Diagnoses Diagnosis Healthcare maintenance Routine general medical examination at a health care facility Mild persistent asthma, uncomplicated Unspecified asthma Exertional dyspnea Other dyspnea and respiratory abnormality Mild persistent asthma, uncomplicated Unspecified asthma documented in this encounter Care Teams Bull Gang Worker Relationship Specialty Start Date End Date Bernadette Childs MD [address] [place] [address] PCP - General 04/03/12 07/27/20 documented as of this encounter
--- OUTSIDE RECORDS SUMMARY | 2023-09-06 01:39 | XMS_ITS | Encounter Summary ---
Author Organization [facility] Address [facility] [place] [address] Care Team Providers Care Surgical Assistant Certified Name Role Phone Bernadette Childs MD Primary Care Provider [phone] Encounter Details Date Type Department Care Team (Late st Contact Info) Description 06/07/2018 3:20 PM EDT Office Visit Cardiology at [address] [address] Cornelius Sullivan II, MD [facility] [place] [address] Chest pain, unspecified type; Cardiac cirrhosis; Chronic diastolic congestive heart failure; Chronic right-sided heart failure; h/o Constrictive pericarditis; Hyperlipidemia, unspecified hyperlipidemia type; BHARATI (obstructive sleep apnea); SOB (shortness of breath); Tricuspid valve insufficiency, unspecified etiology Social History Tobacco Use Types Packs/Day Years [...] Sign Reading Time Taken Comments Blood Pressure 101/64 06/07/2018 3:49 PM EDT Pulse 99 06/07/2018 3:49 PM EDT Temperature - - Respiratory Rate - - Oxygen Saturation 99% 06/07/2018 3:49 PM EDT Inhaled Oxygen Concentration - - Weight 100.2 kg (221 lb) 06/07/2018 3:49 PM EDT Height 158.2 cm (5' 2.3) 06/07/2018 3:49 PM EDT Body Mass Index 40.03 06/07/2018 3:49 PM EDT documented in this encounter Progress Notes * Cornelius Sullivan II - 06/07/2018 3:20 PM EDT Patient Name: Teresita Beltre : 1965 Age: 52 y.o. Date of Visit: 06/07/2018 Primary Care Physician: Bernadette Childs MD The patient is a 52 y.o. female who is seen in follow up in Cardiology Clinic and who has the cardiovascular and other diagnoses as below: Patient Active Problem List Diagnosis ??? BHARATI (obstructive sleep apnea) ??? Depression ??? Anxiety disorder ??? Diabetes mellitus ??? Obesity, Class III, BMI 40-49.9 (morbid obesity) BMI=43 ??? Tricuspid valve insufficiency ??? Pain in left arm ??? Chronic diastolic congestive heart failure ??? SOB (shortness of breath) May be multifactorial Restrictive lung disease Obesity H/o constrictive pericarditis ??? Chest pain ??? Fever ??? HCAP (healthcare-associated pneumonia) ??? Chronic right-sided heart failure ??? Cardiac cirrhosis ??? h/o Constrictive pericarditis S/p Pericardial stripping at [facility] 05-04-13 ??? Ascites ??? Abdominal pain, RUQ (right upper quadrant) ??? Abnormal LFTs (liver function tests) ??? Hyperlipidemia Current medications were reviewed and include: Outpatient Medications Marked as Taking for the 06/07/18 encounter (Office Visit) with Cornelius Sullivan II, MD Medication Sig Dispense Refill ??? insulin NPH hum/reg insulin hm (NOVOLIN 70/30 U-100 INSULIN SUBQ) Inject subcutaneously 2 timesdaily. ??? estradiol (ESTRACE) 0.01 % (0.1 mg/gram) Cream Place 2 g vaginally daily. ??? metoprolol succinate (TOPROL-XL) 25 mg Tablet Sustained Release 24 hr TAKE ONE TABLET BY MOUTH EVERY DAY 90 tablet 3 ??? gabapentin (NEURONTIN) 800 mg Tablet Take [...] mouth nightly. Interval History: I last saw Ms. Beltre on September 07, 2017. At that time she was feeling better with improved dyspnea and was looking forward to bariatric surgery. Since then she has been able to lose 30 pounds over the last 7 months. She has apparently from her and feels reduced stress and has changed her diet towards a more healthy composition. She still has functional class II-III exertional dyspnea but is able to climb more than 1 flight. She has decided not to have bariatric surgery. She has gone back to pulmonary rehab 2 days/week and spends an hour exercising including 15 minutes on a treadmill at 2-1/2 mph. On other days she does go for walks. She denies angina, she gets palpitations only when she is anxious. She denies PND or orthopnea. Shehas presyncope when she bends over and then stands up, she is not had syncope. ROS: The remainder of a full review of systems is positive for frequent cough, dry mouth, depression, and excessive anxiety. Exam: Vital signs this visit: Vitals: 06/07/18 1549 BP: 101/64 Pulse: 99 SpO2: 99% Weight: 100.2 kg (221 lb) Height: 158.2 cm (5' 2.3) Chest: Clear to auscultation. Cardiac exam: Normal S1 and S2 without rub, murmur, or gallop. Carotid upstrokes are brisk. There are no carotid bruits. Jugular venous pressure does not appear to be elevated and there is no early V wave noted. Abdominal exam reveals obesity without clear organomegaly, masses, tenderness. Examination of the extremities reveals no edema. Neurologic exam is grossly nonfocal. ECG: Normal sinus rhythm, ventricular rate 99 bpm. Possible left atrial enlargement. Compared with prior tracings no change. No results for input(s): WBC, HGB, HCT, PLATELET, NA, K, BUN, CREATININE, HA1C, ALT, CHLPL in the last 720 hours. Assessment: 52-year-old female with a history of constrictive pericarditis status post pericardial stripping procedure performed at [facility] in April 2013, who also has obesity, restrictive lung deficit, heart failure with preserved ejection fraction, diabetes, obstructive sleep apnea, and persistent exertional dyspnea functional class II-III. I tend to believe that most of her problems stem from her obesity and was encouraging bariatric surgery. She did have a regadenoson nuclear stress test in September which was negative for ischemia. At this point she has managed to take off significant weight and has abandoned the idea of bariatric surgery. She intends to continue to lose weight with a target of 180 pounds which means another 40 pounds is necessary. I am certainly supportive of this plan andbelieve it will help her symptoms significantly. I also continue to encourage her exercise program and have suggested that she increase her treadmill walking to 30 minutes on most if not all days of the week. Plan: 1. Continue current medications 2. Continue to encourage weight loss and exercise 3. Follow-up in this clinic in 1 year Cornelius Sullivan MD documented in this encounter Plan of Treatment Upcoming Encounters Date Type Department Care Team (Late st Contact Info) Description 09/14/2023 11:00 AM EDT Office [place] [address] Mague Johnson MD [facility] [place] [address] documented as of this encounter Procedures Procedure Name Priority Date/Time Associated Diagnosis Comments EKG 12-LEAD Routine 06/07/2018 3:49 PM EDT Chest pain, unspecified type Cardiac cirrhosis Chronic diastolic congestive heart failure Chronic right-sided heart failure h/o Constrictive pericarditis Hyperlipidemia, unspecified hyperlipidemia type BHARATI (obstructive sleep apnea) SOB (shortness of breath) Tricuspid valve insufficiency, unspecified etiology documented in this encounter Results * EKG 12 Lead (06/07/2018 3:49 PM EDT) Ventricular rate 99 BPM MUSE SYSTEM Atrial Rate 99 BPM MUSE SYSTEM P-R Interval 158 ms MUSE SYSTEM QRS Duration 74 ms MUSE SYSTEM Q-T Interval 356 ms MUSE SYSTEM QTC Calculated (Bezet) 456 ms MUSE SYSTEM Calculated P [place] 15 degrees MUSE SYSTEM Calculated R [place] 48 degrees MUSE SYSTEM Calculated T [place] 20 degrees MUSE SYSTEM INTERPRETATION Normal sinus rhythm Possible Left atrial enlargement Borderline ECG When compared with ECG of 07-SEP-2017 16:17, No significant change was found Confirmed by MD Rinku, Homer ([id number]) on 06/08/2018 11:36:03 AM MUSE SYSTEM 06/07/2018 3:49 PM EDT 06/08/2018 11:36 AM EDT Cornelius Sullivan II, MD ECG ORDERABLES MUSE SYSTEM documented in this encounter Visit Diagnoses Diagnosis Chest pain, unspecified type Cardiac cirrhosis Cirrhosis of liver without mention of alcohol Chronic diastolic congestive heart failure Chronic diastolic heart failure Chronic right-sided heart failure Congestive heart failure, unspecified h/o Constrictive pericarditis Constrictive pericarditis Hyperlipidemia, unspecified hyperlipidemia type BHARATI (obstructive sleep apnea) Obstructive sleep apnea (adult) (pediatric) SOB (shortness of breath) Shortness of breath Tricuspid valve insufficiency, unspecified etiology documented in this encounter Care Teams Surgical Assistant Certified Relationship Specialty Start Date End Date Bernadette Childs MD [address] [place] [address] PCP - General 04/03/12 07/27/20 documented as of this encounter
--- OUTSIDE RECORDS SUMMARY | 2023-09-06 01:39 | XMS_ITS | Encounter Summary ---
Author Organization [facility] Address [facility] [place] [address] Care Team Providers Care Occupational Hygienist Name Role Phone Bernadette Childs MD Primary Care Provider [phone] Reason for Visit * Reason Comments Shortness of Breath Encounter Details Date Type Department Care Team (Late st Contact Info) Description 08/19/2016 8:30 AM EDT Office Visit Cardiology at [address] [address] Juan Dumont MD [facility] [place] [address] Obesity, Class III, BMI 40-49.9 (morbid obesity); SOB (shortness of breath) Social History Tobacco Use Types Packs/Day Years [...] Sign Reading Time Taken Comments Blood Pressure 128/72 08/19/2016 8:44 AM EDT Pulse 84 08/19/2016 8:44 AM EDT Temperature - - Respiratory Rate - - Oxygen Saturation - - Inhaled Oxygen Concentration - - Weight 108 kg (238 lb 1.6 oz) 08/19/2016 8:44 AM EDT Height 157.5 cm (5' 2) 08/19/2016 8:44 AM EDT Body Mass Index 43.55 08/19/2016 8:44 AM EDT documented in this encounter Progress Notes * Juan Dumont MD - 08/19/2016 8:30 AM EDT Images from the original note were not included. [facility] [place] [address] [place] [address] CARDIOMYOPATHY/HEART FAILURE SERVICE OUTPATIENT CLINIC NOTE- MVO2 Stress Test Consultation Teresita Beltre 08/21/2016 Primary Care Provider: Bernadette Childs MD Referring Provider: Cornelius Sullivan II CHIEF COMPLAINT: Chief Complaint Patient presents with ??? Shortness of Breath HISTORY OF PRESENT ILLNESS: Teresita Beltre is a 51 y.o. patient seen for a routine evaluation for long standing dyspnea. 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 She also has been evaluated by pulmonology and has restrictive lung disease with diminished DLCO. She has obesity, DM and a history of cardiac cirrhosis. Her spironolactone dose was recently decreased from 100mg to 50 mg, and now most recently 25 mg daily. She denies any worsening LE edema, and has no clinical arrhythmias, angina or syncope although she does have lightheadedness. She is here for an MVO2 stress test, and we reviewed the indications and potential findings. PAST MEDICAL HISTORY: Reviewed and updated as appropriate in the medical record. Patient Active Problem List Diagnosis Code ??? [...] Class III, BMI 40-49.9 (morbid obesity) E66.01 Patient Active Problem List Diagnosis ??? Obesity, Class III, BMI 40-49.9 (morbid obesity) BMI=43 ??? Pain in left arm ??? Chronic diastolic congestive heart failure ??? SOB (shortness of breath) May be multifactorial Restrictive lung disease Obesity H/o constrictive pericarditis ??? Chest pain ??? Fever ??? HCAP (healthcare-associated pneumonia) ??? Chronic right-sided heart failure ??? Cardiac cirrhosis ??? h/o Constrictive pericarditis S/p Pericardial stripping at [facility] 05-04-13 ??? Ascites ??? Abdominal pain, RUQ (right upper quadrant) ??? Abnormal LFTs (liver function tests) Patient-reported scores from the Heart Failure Survey are: No flowsheet data found. SOCIAL HISTORY: Reviewed and updated as appropriate in the medical record. The patient reports thatshe quit smoking about 20 years ago. Her smoking use included Cigarettes. She has a 3.75 pack-year smoking history. She has never used smokeless tobacco. She reports that she does not drink alcohol or use illicit drugs. FAMILY HISTORY: Reviewed and updated as appropriate in the medical record. Family History Problem Relation Age of Onset ??? Type 1 Diabetes ??? Autoimmune Disorder ??? Heart Disease Mother ??? Cerebrovascular Accident Mother 64 ??? Diabetes Mother ??? Diabetes Sister ??? Arthritis Sister ??? Arthritis Brother ??? Diabetes Brother ??? Arthritis Brother ??? Diabetes Brother ??? Diabetes Brother ALLERGIES: Reviewed and updated as appropriate in the medical record. Allergies Allergen Reactions ??? Latex Rash ??? Scopolamine Itching and Rash Itching erythematous rash resolved with scop patch removal. ??? Adhesive Bandage Localized Reaction ??? Amoxicillin Trihydrate Rash ??? Penicillins Rash ??? Sulfa (Sulfonamide Antibiotics) Rash MEDICATIONS: Outpatient Prescriptions Marked as Taking for the 08/19/16 encounter (Office Visit) with Juan Dumont MD Medication Sig Dispense Refill ??? meTOPROLOL succinate (TOPROL-XL) 25 mg Tablet Sustained Release 24 hr Take 1 tablet by mouth daily. 90 tablet 3 ??? spironolactone (ALDACTONE) 50 mg Tablet Take 1 tablet by mouth daily. (Patient taking differently: Take 25 mg by mouth daily.) 90 tablet 3 ??? polyethylene glycol (MIRALAX) 17 gram Powder in Packet Take 17 g by mouth as needed. ??? furosemide (LASIX) 20 mg Tablet Take 1 tablet by mouth daily. 90 tablet 3 ??? insulin glargine (LANTUS SOLOSTAR) Insulin Pen Inject 30 Units subcutaneously nightly. ??? LORazepam (ATIVAN) 0.5 mg Tablet Take 0.5 mg by mouth nightly. ??? LORazepam (ATIVAN) 0.5 mg Tablet Take 0.5 mg by mouth every 6 hours as needed. ??? HYDROmorphone (DILAUDID) 2 mg tablet Take 2 mg by mouth every 4 hours as needed. ??? traZODone (DESYREL) 100 mg tablet Take 100 mg by mouth nightly. REVIEW OF SYSTEMS: Review of Systems Pertinent Negatives or Positives General Denies Fever, chills, night sweats. Weight stable. Sleep habits fair, no prior sleep apnea evaluation, high risk for BHARATI. Eyes No visual loss, double vision, drainage, eye pain, dry eyes, or other sxs reported. ENT No sore throat, dry mouth, eptistaxis or other sxs reported. Cardiac Denies angina, palpitations, syncope Denies FIGUEREDO, Orthopnea, PND, LE edema Pulmonary No shortness of breath, cough, hemoptysis, or other sxs reported. Heme/Lymph No swollen glands, fever, bleeding, or other sxs reported. GI No abdominal pain, change in bowel habits, melena, nausea, vomiting, diarrhea or other sx reported. No urethral discharge, dysuria, frequency, nocturia, or other sxs reported. Endocrine No hot spells, cold spells, or other sxs reported. Musculoskeletal No limb pain, joint pain, joint swelling, or other symptoms reported. Neuro No TIAs, CVA, or dizziness, vertigo Skin No rashes, dry skin, or other sxs reported. PHYSICAL EXAMINATION: Vital Signs: Wt Readings from Last 3 Encounters: 08/19/16 (!) 108 kg (238 lb 1.6 oz) 05/12/16 (!) 108.9 kg (240 lb) 06/18/15 (!) 106.8 kg (235 lb 8 oz) Temp Readings from Last 3 Encounters: 03/22/13 36.5 ??C (97.7 ??F) (Oral) 03/19/13 36.9 ??C (98.4 ??F) (Temporal) 03/02/13 36.2 ??C (97.2 ??F) BP Readings from Last 3 Encounters: 08/19/16 128/72 05/12/16 110/66 06/18/15 116/68 Pulse Readings from Last 3 Encounters: 08/19/16 84 05/12/16 78 06/18/15 86 SpO2: -- General -Alert, oriented, NAD. Affect pleasant, obese. HEENT -unremarkable, no xanthelasma, arcus, icterus. PERRLA, moist mucous membranes. Dentition good Neck -without lymphadenopathy, mass, thyromegaly Carotid brisk upstroke Chest -Median sternotomy Lungs -clear without rales or rhonchi Cardiac -Regular with normal S1, normally split S2, No systolic or diastolic murmur, No definite gallop is noted. PMI not displaced. No RV lift. JVP~ 6-7 cm H20, No AJR, obvious Kussmaul's sign, and no prominent X and Y descent. Abdomen -soft, non-tender, no obvious organomegaly, masses or bruits Extremities -No edema, warm to feet. Pulses 2+ Neuro -intact CN, motor LAB STUDIES: No results found for this or any previous visit (from the past 72 hour(s)). No results found for: PROBNP CARDIAC STUDIES MVO2 Stress test- formal report pending. Duration: 8:32 on a progressive cycle ergometer, stopped because of fatigue and dyspnea Baseline heart rate= 84 bpm, increasing to 133 bpm, sinus, no arrhythmias Blood pressure: Baseline 128/74 Maximum 152/82 mmHg Oxygen saturation: Rest = 96%, Exercise 96 % no change with exercise. EKG: Rest: NSR, no ST-T changes Exercise Sinus tachycardia, no ST -T changes, no arrhythmisa MVO2: 10.9 ml/kg/min (63 % predicted) formal report pending. AT: 8.0 ml/kg/min (46 % predicted, > 40% normal) Ve/VCO2: 38 RER 1.10 (>1.15 represents a maximal stress) PFTS: FVC=1.96 60% FEV1= 1.57 (60%) FEV1/FVC=79 PROBLEMS: SOB (shortness of breath) MVO2 stress test pending. ASSESSMENT: The MV02 stress test demonstrates baseline restrictive pulmonary physiology, but no obvious ventilation (breathing capacity) limitation or O2 desaturation during exercise. She just attained an RER ~ 1.10 but not quite sustained 1.20 suggesting near maximal stress. She has moderately severe functional limitation with an MV02 =10.9 ml/kg (63% MPHR), but with a normal anaerobic threshold, attaining 78% MPHR before the test was discontinued secondary to fatigue and dyspnea, and she had a normal BP response with no arrhythmias. Her O2 pulse was slighyly low (81% predicted) suggesting a slight decrease in cardiac reserve and cardiac output, with a slightly elevated VE/CO2. The functional limitation may therefore be multifactorial, with dyspnea being her major complaint. I reviewed and dicussed this test with pulmonology as well. She may benefit from a formal re-evaluation of full PFTS, lung volumes, airway pressures. This MVO2 stress can not distinguish whether she has elevated filling pressures or pulmonary hypertension at rest or with stress that could explain her breathlessness. Juan Dumont MD, [facility] youth liaison officer Cardiology Director, Cardiovascular Critical Care Tdp Displays Analyst, Advanced Heart Failure and Cardiomyopathy Program [facility], [facility] documented in this encounter Miscellaneous Notes * Assessment & Plan Note - Juan Dumont MD - 08/21/2016 2:34 PM EDTAssociated Problem(s): SOB (shortness of breath) Formal MVO2 stress test result pending. Likely multifactorial components to her functional limitation. Consider polysomnography and re-evaluation by pulmonology Consider R/L cardiac cath with rest/exercise hemodynamics documented in this encounter Plan of Treatment Upcoming Encounters Date Type Department Care Team (Late st Contact Info) Description 09/14/2023 11:00 AM EDT Office [place] [address] Mague Johnson MD [facility] [address] [place] [address] documented as of this encounter Visit Diagnoses Diagnosis Obesity, Class III, BMI 40-49.9 (morbid obesity) Morbid obesity SOB (shortness of breath) Shortness of breath documented in this encounter Care Teams Occupational Hygienist Relationship Specialty Start Date End Date Bernadette Childs MD [address] [facility] [address] [place] [address] PCP - General 04/03/12 07/27/20 documented as of this encounter
--- OUTSIDE RECORDS SUMMARY | 2023-09-06 01:39 | XMS_ITS | Encounter Summary ---
Author Organization [facility] Address [facility] [place] [address] Care Team Providers Care Personal Injury Attorney Name Role Phone Bernadette Childs MD Primary Care Provider [phone] Reason for Visit * Diagnostic Test (Routine) - Closed Specialty Diagnoses / Procedures Referred By Víctor thomas Referred To Contact Radiology Diagnoses FIGUEREDO (dyspnea on exertion) Type 2 diabetes mellitus without complication, with long-term current use of insulin Procedures NM Pharmacologic Stress Myocardial Perfusion Cornelius Sullivan II, MD [facility] [place] [address] [place] [address] Referral ID Status Reason Start Date Expiration Date V isits Requested Visits Authorized [id number] Closed Specialty Service Requested 09/23/2017 09/23/2018 4 4 Encounter Details Date Type Department Care Team (Late st Contact Info) Description 10/14/2017 8:04 AM EDT Hospital Encounter [place] [address] Cornelius Sullivan II, MD [facility] [place] [address] Discharge Disposition: Home Social History [...] 11:00 AM EDT Office Visit Endocrinology at [place] [address] Mague Johnson MD [facility] [place] [address] documented as of this encounter Procedures Procedure Name Priority Date/Time Associated Diagnosis Comments NM PHARMACOLOGIC STRESS AND REST MYOCARDIAL PERFUSION Routine 10/14/2017 9:20 AM EDT FIGUEREDO (dyspnea on exertion) Type 2 diabetes mellitus without complication, with long-term current use of insulin documented in this encounter Visit Diagnoses Not on filedocumented in this encounter Administered Medications Inactive Administered Medications - up to 3 most recent administrations Medication Order MAR Action Action Date Dose Rate Site regadenoson (LEXISCAN) injection 0.4 mg 0.4 mg, Intravenous, ONCE, 1 dose, On Tue10/14/17 at 0945, Routine Given 10/14/2017 9:15 AM EDT 0.4 mg technetium (Tc-99m) sestamibi injection 25.7 mCi 25.7 mCi, Intravenous, ONCE PRN, 1 dose, Starting on Tue10/14/17 at 0915, Until Tue10/14/17 at 0915, Per Protocol, Routine Given 10/14/2017 9:15 AM EDT 25.7 mCi documented in this encounter Care Teams Personal Injury Attorney Relationship Specialty Start Date End Date Bernadette Childs MD [facility] [address] [place] [address] PCP - General 04/03/12 07/27/20 documented as of this encounter
--- OUTSIDE RECORDS SUMMARY | 2023-09-06 01:39 | XMS_ITS | Encounter Summary ---
Author Organization [facility] [place] [address] Care Team Providers Care Guard Range Name Role Phone Bernadette Childs MD Primary Care Provider [phone] Encounter Details Date Type Department Care Team (Late st Contact Info) Description 03/21/2017 11:00 AM EST Office Visit Sleep Center at [facility] [address] [place] [address] Veroinca Rivera APRN [facility] [place] [address] BHARATI on CPAP Social History Tobacco Use [...] Sign Reading Time Taken Comments Blood Pressure 132/75 03/21/2017 10:10 AM EST Pulse 97 03/21/2017 10:10 AM EST Temperature - - Respiratory Rate - - Oxygen Saturation 99% 03/21/2017 10:10 AM EST Inhaled Oxygen Concentration - - Weight 109 kg (240 lb 3.2 oz) 03/21/2017 10:10 A M EST Height 156.2 cm (5' 1.5) 03/21/2017 10:10 AM ES T Body Mass Index 44.65 03/21/2017 10:10 AM EST documented in this encounter Patient Instructions * Patient Instructions* Veronica Rivera APRN - 03/21/2017 11:00 AM EST Recommendations: --Order to increase APAP KMP 10-14cw; changed in-house today on data card --For dry mouth: 1) adjust humidity and/or heated tube temperature, 2) consider over the counter Biotene mouth rinse, 3) consider room humidifier --For nasal congestion: 1) Try adjusting PAP humidity level, 2) Consider OTC saline nasal spray: 2 sprays per nostril twice daily, before affixing mask in evening and after removing mask in morning --Printed handouts given to patient on Sleep Apnea Facts & Figures, parts cleaning/maintenance,supply replacement intervals --Driving safety discussed, recommend patient not drive if drowsy, if drowsy while driving, sample puller and nap. --Follow-up: RTC 3 months with NM documented in this encounter Progress Notes * Veronica Rivera APRN - 03/21/2017 11:00 AM EST Sleep Medicine Follow-Up Note HPI: Ms. Teresita Beltre is a 51 y.o. female seen for follow-up of obstructive sleep apnea. Patientpresents today for follow-up in PAP clinic: Sleep Study: 12/15/16 PSG - Respiratory: Snoring: [...] Treatment: APAP Device: AirSense 10 AutoSet, setup 01/31/17 Pressure: 8-12cw Pressure Intolerance: none Interface/Mask: AirFit P10 for Her, XS pillows Difficulty tolerating mask interface: In beginning, hard because mask claustrophobia Chin Strap: Not needed Humidity on?: on auto HCC: [facility], [facility], [place] Insurance: Medicare Snoring: Doesn't think so, Dry Mouth/Throat: Very dry mouth and throat Difficulty Breathing Through Nose/Mouth Breathing: no, but will have problems with nasal congestionif cold Symptoms Improved?: Patient-reported scores: [facility] 03/14/2017 [facility] 3 Insomnia Severity Index 6 (No clinically significant insomnia) VR12 - Physical Component Summary - VR12 - Mental Component Summary - Nocturnal sleep quality improved: thinks it's deeper sleep Daytime symptoms improved (Daytime sleepiness/fatigue): hard to tell, fatigued and tired due to many health issues Naps: no Involuntary Dozing: no Driving: denies Close calls related to sleepiness denies Accidents related to sleepiness denies Motor: RLS: always moves legs although feels this is more relaxing PLMS: does feel like she twitches a lot when sleeping Sleep Pattern: Bed/Recliner/Wedge: bed, flat Bedtime: 11-11:30p or later Lights out: immediate Latency: probably more quickly, under 30 mins now even with trazodone and ativan; before was variable - 30-120 min Awakenings: maybe a little less on average, 3-4x Wake time: 8a (takes dog out); usually will go back to bed, may or may not sleep Rise time: 10-11a Sleep Window: midnight ROS: Constitutional: Weight change: stable ENT: Nasal Obstruction: None : Nocturia: twice if that Patient Active Problem List Diagnosis Code ??? [...] BHARATI (obstructive sleep apnea) G47.33 Echo: 05/12/16, transthoracid LVEF of 80% Outpatient Prescriptions Marked as Taking for the 03/21/17 encounter (Office Visit) with Veronica Rivera APRN Medication Sig Dispense Refill ??? FARXIGA 5 mg Tablet ??? PEN NEEDLE 31 gauge x 05/06 Needle use once daily FOR LANTUS PEN 1 ??? HYDROmorphone (DILAUDID) 2 mg Tablet Take 2 mg by mouth every 3 hours as needed for Pain. ??? fluticasone (FLOVENT HFA) 110 mcg/actuation HFA Aerosol Inhaler Inhale 2 puffs into the lungs 2times daily. 1 Inhaler 3 ??? albuterol 90 mcg/actuation HFA Aerosol Inhaler Inhale 2 puffs into the lungs 4 times daily as needed for Wheezing (VENTOLIN). Use with spacer ??? omeprazole (PRILOSEC) 40 mg Capsule, Delayed Release(E.C.) Take 40 mg by mouth daily. ??? escitalopram (LEXAPRO) 20 mg Tablet Take 20 mg by mouth daily. ??? [DISCONTINUED] glipiZIDE (GLUCOTROL) 10 mg Tablet Take 10 [...] mouth every 6 hours as needed. ??? [DISCONTINUED] HYDROmorphone (DILAUDID) 2 mg tablet Take 2 mg by mouth every 4 hours as needed. ??? traZODone (DESYREL) 100 mg tablet Take 100 mg by mouth nightly. Notable Medications: Trazodone 100mg at bedtime to help with sleep onset Lexapro 20mg Ativan 0.5mg at bedtime for anxiety Dilaudid 2mg PRN--took months ago Card Data Download: Date Range: 01/31/17-03/20/17 Pressure: 8-12cw 95% 11.5 Residual AHI: 0.8 95th % Leak: 11.6 Median Leak: 0 Average Usage (Days Used/Hours): 7 hours 5 mins # Days of usage: 49/49 100% % Days used > 4 hours: 98% Physical Exam: BP 132/75 Pulse 97 Ht 156.2 cm (5' 1.5) Wt 109 kg (240 lb 3.2 oz) SpO2 99% BMI 44.65 kg/m2 General: 51 y.o. female, no distress; Respirations: Even and not labored at rest DERM: Skin Irritation: none Assessment Ms. Teresita Beltre is a 51 y.o. female seen for obstructive sleep apnea. The data download reveals the AHI and leak appear to be well controlled. Patient is doing well with the current pressures of 8-12cw and reports some improvement with deeper sleep, less awakenings, quicker sleep latency. More benefit may take additional time to realize. Humidifier/Heater function/rational and settings were reviewed with the patient along with supply replacement. Discussed remedies for very dry mouth/throat. She is not breathing through her mouth. Printed handouts given to patient on Sleep Apnea Facts & Figures, parts cleaning/maintenance, supply replacement intervals. Patient requested print out of her original sleep study today for pulmonology and in case needed, provided her with a copy of her data download today to show BHARATI appears controlled. Recommend f/u in 3 months with me. All recommendations below. Time spent face to face: 30 minutes 20 minutes of this 30 minute visit was spent in face to face discussion with the patient regarding counseling/education on PAP machine/parts cleaning and maintenance, supply replacement, mask fit, and remedies for dry mouth. Recommendations: --Order to increase APAP KMP 10-14cw; changed in-house today on data card --For dry mouth: 1) adjust humidity and/or heated tube temperature, 2) consider over the counter Biotene mouth rinse, 3) consider room humidifier --For nasal congestion: 1) Try adjusting PAP humidity level, 2) Consider OTC saline nasal spray: 2 sprays per nostril twice daily, before affixing mask in evening and after removing mask in morning --Printed handouts given to patient on Sleep Apnea Facts & Figures, parts cleaning/maintenance,supply replacement intervals --Driving safety discussed, recommend patient not drive if drowsy, if drowsy while driving, sample puller and nap. --Follow-up: RTC 3 months with NM The patient indicates understanding of these issues and agrees with the plan. Veronica Rivera APRN Cc: Bernadette Childs MD documented in this encounter Plan of Treatment Upcoming Encounters Date Type Department Care Team (Late st Contact Info) Description 09/14/2023 11:00 AM EDT Office [place] [address] Mague Johnson MD [facility] [place] [address] documented as of this encounter Visit Diagnoses Diagnosis BHARATI on CPAP Obstructive sleep apnea (adult) (pediatric) documented in this encounter Care Teams Guard Range Relationship Specialty Start Date End Date Bernadette Childs MD [address] [facility] 1 [place] [address] PCP - General 04/03/12 07/27/20 documented as of this encounter
--- OUTSIDE RECORDS SUMMARY | 2023-09-06 01:39 | XMS_ITS | Encounter Summary ---
Author Organization [facility] [place] [address] Care Team Providers Care Hoop Flaring Machine Operator Helper Name Role Phone Bernadette Childs MD Primary Care Provider [phone] Encounter Details Date Type Department Care Team (Late st Contact Info) Description 10/18/2017 Telephone Cardiology at [address] [address] Win Kim, RN Social History Tobacco Use [...] Telephone Encounter - Win Kim RN - 10/18/2017 9:56 AM EDT Call placed to patient, as per her request - to detail initial results of Nuclear Stress Test done 10/14/17. Initial results reviewed as detailed below (in bold); patient reassured. Promised expert review and formal letter forthcoming from Dr. Sullivan - as per protocol. Patient voiced appreciation forspina. Requests copies be sent to her, to her PCP (Dr. Childs), to [facility] Bariatric Surgery (available within EPIC), and to [facility] Pulmonary Rehabilitation. Note routed to Dr. Sullivan and to Corinne Ramirez. Ritchie Kim, opticianry teacher Team Nurse [facility] Ambulatory Cardiology FINDINGS: ?? No fixed or reversible perfusion defects are present. ?? Functional analysis: ?? Myocardial function: There is normal wall thickening and wall motion. Left ventricular ejection fraction: 78 % (normal greater than than 50%). ?? No significant incidental CT findings. ?? IMPRESSION No ischemia or scar. Left ventricular function is normal. ?? Preliminary report signed by: Galileo Padilla at 10/14/2017 11:49 AM ?? I have personally reviewed the image(s) and the residents interpretation and agree with the findings, Chava Miles at 10/14/2017 12:07 PM ?? documented in this encounter Plan of Treatment Upcoming Encounters Date Type Department Care Team (Late st Contact Info) Description 09/14/2023 11:00 AM EDT Office [place] [address] Mague Johnson MD [facility] [address] documented as of this encounter Visit Diagnoses Not on filedocumented in this encounter Care Teams Hoop Flaring Machine Operator Helper Relationship Specialty Start Date End Date Bernadette Childs MD [address] [place] [address] PCP - General 04/03/12 07/27/20 documented as of this encounter
--- OUTSIDE RECORDS SUMMARY | 2023-09-06 01:39 | XMS_ITS | Encounter Summary ---
Author Organization [facility] Address [facility] [address] [place] [address] Care Team Providers Care Propulsion Motor And Generator Repairer Name Role Phone Bernadette Childs MD Primary Care Provider [phone] Reason for Visit * Reason Comments Follow-up Congestive Heart Failure Shortness of Breath Chest Pain Encounter Details Date Type Department Care Team (Late st Contact Info) Description 11/10/2016 11:30 AM EDT Office Visit Cardiology at [address] [address] Cornelius Sullivan II, MD [facility] [place] [address] Chest pain, unspecified type; Chronic diastolic congestive heart failure; SOB (shortness of breath); h/o Constrictive pericarditis; Hyperlipidemia, unspecified hyperlipidemia type Social History Tobacco [...] Sign Reading Time Taken Comments Blood Pressure 99/67 11/10/2016 11:17 AM EDT Pulse 75 11/10/2016 11:17 AM EDT Temperature - - Respiratory Rate - - Oxygen Saturation 97% 11/10/2016 11:17 AM EDT room air Inhaled Oxygen Concentration - - Weight 108 kg (238 lb 1.6 oz) 11/10/2016 11:17 A M EDT Height 157.5 cm (5' 2) 11/10/2016 11:17 AM EDT Body Mass Index 43.55 11/10/2016 11:17 AM EDT documented in this encounter Progress Notes * [place] Gutierrez [place] - 11/10/2016 11:30 AM EDT Patient Name: Teresita Beltre : 1965 Age: 51 y.o. Date of Visit: 11-10-2016 Primary Care Physician: Bernadette Childs MD Problem List: Patient Active Problem List Diagnosis ??? Depression ??? Anxiety disorder ??? Diabetes [...] h/o Constrictive pericarditis S/p Pericardial stripping at [facility] 05-04-13 ??? Ascites ??? Abdominal pain, RUQ (right upper quadrant) ??? Abnormal LFTs (liver function tests) ??? Hyperlipidemia I last saw Mrs. Beltre on May 12, 2016. Since that time, we got a cardiopulmonary stress test, the results of which continued controversy about the cause of her dyspnea. There was evidences of a pulmonary deficit, presumably a restrictive pulmonary deficit, but there was also evidence of possible cardiac deficit, possibly due to pulmonary hypertension with or without evidence of diastolic heart failure. In any event, Dr. Dumont suggested pulmonary followup as well as pulmonary function testing and possibly a sleep study evaluation. At this point, most of that is in process. She has been seen by Sleep Medicine and a sleep study is planned and she has a Pulmonary appointment scheduled for November 30. She continues to have functional class 3 exertional dyspnea. She tends to stop at the top of one flight of stairs if not on the way up. She is attending Pulmonary Rehab at this point and has been for the last 4 weeks. She is up to 7 minutes on a treadmill at 2.1 miles per hour. She denies any chest discomfort. She does admit to paroxysmal nocturnal dyspnea, but she does not have any problems sleeping flat. She thinks that she may wake up because of anxiety. She also complains of fatigue. She denies any dizziness. She has mild lower extremity swelling and she complains of a sense of abdominal bloating. She had an abdominal ultrasound ordered by her driller helper, Dr. Wylie, in [place], the results of which are pending. The remainder of her review of systems is positive for fatigue and frequent cough, excessive anxiety and depression. CURRENT MEDICATIONS: Current Outpatient Prescriptions Medication Sig Dispense Refill ??? albuterol 90 [...] tablet Take 100 mg by mouth nightly. On physical examination, heart rate is 75 and regular, blood pressure is 100/67. Her chest is clear to auscultation. Cardiac exam: Normal S1 and S2 with a 2/6 systolic murmur heard best along the left sternal border. Carotid upstrokes are brisk. There are no carotid bruits. Jugular venous pressure does not appear to be elevated. Abdominal exam reveals obesity with clear organomegaly, masses or tenderness. Examination of the extremities reveals trace pitting. Neurologic exam is grossly nonfocal. Electrocardiogram reveals normal sinus rhythm with sinus arrhythmia. There is possible left atrial enlargement. Otherwise unremarkable and unchanged. ASSESSMENT: A 51-year-old female with a history of constrictive pericarditis status post pericardial stripping without evidence of further constriction on her most recent echocardiograms, who does have persistent exertional dyspnea, as well as a sense of fluid retention. She has persistent tachycardia which is being managed with beta blockade. She is on chronic diuretic therapy to treat an elevated wedge pressure at the time of her right heart catheterization and to treat the empiric possibility of heart failure with preserved ejection fraction. Diuretic therapy with spironolactone and Lasix has been complicated by hyperkalemia. At this point, I would like to continue with her Pulmonary and sleep evaluation, as well as her Pulmonary Rehab and see if we can come up with a solution to her dyspnea. If not, we may need to return to the Hvac Operations Technician and perform a right heart catheterization plus/minus a left heart catheterization with exercise. PLAN: 1. Check ProBNP. 2. Check BMP. 3. Followup contact with Mrs. Beltre regarding those results. 4. Followup in this clinic in 3 months. Cornelius Sullivan MD documented in this encounter Plan of Treatment Upcoming Encounters Date Type Department Care Team (Late st Contact Info) Description 09/14/2023 11:00 AM EDT Office [place] [address] Mague Johnson MD [facility] [place] [address] [phone] (work) documented as of this encounter Procedures Procedure Name Priority Date/Time Associated Diagnosis Comments PRO-BRAIN NATRIURETIC PEPTIDE Routine 11/10/2016 12:12 PM EDT Chronic diastolic congestive heart failure BASIC METABOLIC PANEL (NON-FASTING) Routine 11/10/2016 12:12 PM EDT Chronic diastolic congestive heart failure EKG 12-LEAD Routine 11/10/2016 11:24 AM EDT Chest pain, unspecified type SOB (shortness of breath) h/o Constrictive pericarditis documented in this encounter Results * (ABNORMAL) pro-Brain Natriuretic Peptide (11/10/2016 12:12 PM EDT) Pathologist [facility] ProBNP 412(H) <=125 pg/mL [facility] Blood specimen (specimen) 11/10/2016 12:12 PM EDT 11/10/2016 12:18 PM EDT Narrative Resulting Agency Comment Spec In Lab Cornelius Sullivan II, MD CHEMISTRY ORDER DENISHA [facility] [place] [address] * (ABNORMAL) Basic Metabolic Panel (non-fasting) (11/10/2016 12:12 PM EDT) Pathologist [facility] Glucose Lvl 111 65 - 199 mg/dL [facility] Comment:Diabetes: >=200 mg/d L plus symptoms BUN 13 8 - 18 mg/dL [facility] Creatinine 1.08 0.70 - 1.20 mg/dL [facility] Comment: Please note that the pediatric reference intervals supplied above were not validated at [facility]. Results from pediatric patients should be interpreted in conjunction to the patient's age, height and muscle mass. Sodium 142 135 - 145 mmol/L [facility] Potassium 4.2 3.5 - 5.0 mmol/L [facility] Comment: Please note: ??Patients with WBC >100,000 may have falsely elevated Potassium levels. ??For accurate Potassium quantification in these patients send serum separator tube (gold top) for subsequent determinations. ??Contact the Clinical Chemistry Laboratory if there are any questions. Chloride 104 98 - 107 mmol/L [facility] CO2 25 22 - 31 mmol/L [facility] Anion Gap 13 5 - 15 mmol/L [facility] Calcium 9.0 8.5 - 10.5 mg/dL [facility] Estimated GFR 54(L) >=60 [facility] Comment: This estimated GFR (eGFR) value was calculated using the MDRD equation which has been validated on patients between the ages of 18 and 70. The MDRD should not be used to assess kidney function in patients < 18 years of age or in patients with extremes of body mass, or in patients with acute kidney failure. This value should be multiplied by 1.2 for patients. For further information please copy and paste the following links into your internet browser. http://Wiz Maps/DHnkdep http://Wiz Maps/DHMCnkf Blood specimen (specimen) 11/10/2016 12:12 PM EDT 11/10/2016 12:18 PM EDT Narrative Resulting Agency Comment Spec In Lab Cornelius Sullivan II, MD CHEMISTRY ORDER DENISHA [facility] [place] [address] * EKG 12 Lead (11/10/2016 11:24 AM EDT) Ventricular rate 75 BPM MUSE SYSTEM Atrial Rate 75 BPM MUSE SYSTEM P-R Interval 160 ms MUSE SYSTEM QRS Duration 86 ms MUSE SYSTEM Q-T Interval 406 ms MUSE SYSTEM QTC Calculated (Bezet) 453 ms MUSE SYSTEM Calculated P [place] 18 degrees MUSE SYSTEM Calculated R [place] 33 degrees MUSE SYSTEM Calculated T Atwood 20 degrees MUSE SYSTEM INTERPRETATION Normal sinus rhythm with sinus arrhythmia Possible Left atrial enlargement Borderline ECG When compared with ECG of 12-MAY-2016 14:39, No significant change was found Confirmed by MD Lillie, Casper De Oliveira ([id number]) on 11/10/2016 4:38:14 PM MUSE SYSTEM 11/10/2016 11:2 4 AM EDT 11/10/2016 4:38 PM EDT Cornelius Sullivan II, MD ECG ORDERABLES MUSE SYSTEM documented in this encounter Visit Diagnoses Diagnosis Chest pain, unspecified type Chronic diastolic congestive heart failure Chronic diastolic heart failure SOB (shortness of breath) Shortness of breath h/o Constrictive pericarditis Constrictive pericarditis Hyperlipidemia, unspecified hyperlipidemia type documented in this encounter Care Teams Propulsion Motor And Generator Repairer Relationship Specialty Start Date End Date Bernadette Childs MD [address] [facility] [address] [place] [address] PCP - General 04/03/12 07/27/20 documented as of this encounter
--- OUTSIDE RECORDS SUMMARY | 2023-09-06 01:39 | XMS_ITS | Encounter Summary ---
Author Organization [facility] Address [facility] [place] [address] Care Team Providers Care Materials Management Manager Name Role Phone Bernadette Childs MD Primary Care Provider [phone] Encounter Details Date Type Department Care Team (Late st Contact Info) Description 04/14/2017 Telephone Sleep Center at [facility] [address] [place] [address] Annabella Grissom, RN Social History Tobacco Use Types Packs/Day [...] encounter Miscellaneous Notes * Telephone Encounter - Veronica Rivera APRN - 04/14/2017 2:45 PM EST Placing pressures back to 8-13cw, instead of 8-12cw, as patient likely needs the extra unit on the maximum side. She has a data card, no cell sevice where she lives so patient needs to send DME her card for them to change---order placed to [facility] today. JANNA ESPINOSA documented in this encounter Plan of Treatment Upcoming Encounters Date Type Department Care Team (Late st Contact Info) Description 09/14/2023 11:00 AM EDT Office [place] [address] Mague Johnson MD [facility] [address] ENDOCRIN[place] [address] documented as of this encounter Visit Diagnoses Diagnosis BHARATI on CPAP Obstructive sleep apnea (adult) (pediatric) documented in this encounter Care Teams Materials Management Manager Relationship Specialty Start Date End Date Bernadette Childs MD [address] [place] [address] PCP - General 04/03/12 07/27/20 documented as of this encounter
--- OUTSIDE RECORDS SUMMARY | 2023-09-06 01:39 | XMS_ITS | Encounter Summary ---
[place] [address] Care Team Providers Care Snow Technician Name Role Phone Bernadette Childs MD Primary Care Provider [phone] Encounter Details Date Type Department Care Team (Late st Contact Info) Description 09/20/2017 [place] [address] Cinthya Lino Social History Tobacco Use Types [...] * Telephone Encounter - Cinthya Messina - 09/20/2017 10:31 AM EDT Spoke to patient regarding setting up new patient apt. We have most of her documents however Shannan Fernandes would her to have another EGD as well as an ultrasound due to cirrhosis. documented in this encounter Plan of Treatment Upcoming Encounters Date Type Department Care Team (Late st Contact Info) Description 09/14/2023 11:00 AM EDT [place] [address] Mague Johnson MD [facility] [address] [place] [address] documented as of this encounter Visit Diagnoses Not on filedocumented in this encounter Care Teams Snow Technician Relationship Specialty Start Date End Date Bernadette Childs MD [address] [place] [address] PCP - General 04/03/12 07/27/20 documented as of this encounter
--- OUTSIDE RECORDS SUMMARY | 2023-09-06 01:39 | XMS_ITS | Encounter Summary ---
Author Organization [facility] [place] [address] Care Team Providers Care Regulatory Affairs Internship Name Role Phone Bernadette Childs MD Primary Care Provider [phone] Reason for Referral * Diagnostic Test (Routine) - Closed Specialty Diagnoses / Procedures Referred By Contac t Referred To Contact Cardiology Diagnoses Constrictive pericarditis Procedures Echocardiogram Transthoracic(Leb) Cornelius Sullivan II, MD [facility] [place] [address] [facility] [place] [address] Referral ID Status Reason Start Date Expiration Date V isits Requested Visits Authorized [id number] Closed Specialty Service Requested 03/12/2016 03/12/2017 1 1 Reason for Visit * Diagnostic Test (Routine) - Closed Specialty Diagnoses / Procedures Referred By Contac t Referred To Contact Cardiology Diagnoses Constrictive pericarditis Procedures Echocardiogram Transthoracic(Leb) Cornelius Sullivan II, MD [facility] [place] [address] [facility] [place] [address] Referral ID Status Reason Start Date Expiration Date V isits Requested Visits Authorized [id number] Closed Specialty Service Requested 03/12/2016 03/12/2017 1 1 Encounter Details Date Type Department Care Team (Mike calero Contact Info) Description 05/12/2016 12:19 PM EDT - 05/12/2016 11:59 PM EDT Hospital Encounter Non-Invasive Cardiology Lab [facility] [place] [address] Cornelius Sullivan II, MD [facility] [place] [address] Constrictive pericarditis Discharge Disposition: Home Social History [...] Sig Dispensed Refills Start Date End Date polyethylene glycol (MIRALAX) 17 gram Powder in Packet Take 17 g by mouth as needed. 12/15/2021 spironolactone (ALDACTONE) 100 mg TabletIndications:On potassium sparing diuretic therapy Take 1 tablet by mouth daily. 90 tablet PRN 06/18/2015 05/25/2016 meTOPROLOL succinate (TOPROL-XL) 25 mg Tablet Sustained Release 24 hrIndications:Tachyc ardia, unspecified Take 1 tablet by mouth daily. 90 tablet 3 06/18/2015 07/12/2016 furosemide (LASIX) 20 mg TabletIndications:Fl uid retention [...] 11:00 AM EDT Office [place] [address] [facility] [place] [address] documented as of this encounter Procedures Procedure Name Priority Date/Time Associated Diagnosis Comments ECHO COMPLETE Routine 05/12/2016 1:49 PM EDT Constrictive pericarditis documented in this encounter Results * ECHO COMPLETE (05/12/2016 1:49 PM EDT) EF 80 HEARTLAB SYSTEM Anatomical Region Laterality Modality Other 05/12/2016 Narrative 05/12/2016 2:34 PM EDT Procedure: ?Transthoracic Echocardiogram Patient: ?RUBA Ovalle ? (Age): 1965(50y) Med Rec#: ? [id number] ?Sex: ?F ? Site Loc: ? [facility] ?Ht / Wt: ??157(cm)/106(kg) Pt. Loc: ?Echo Lab ?BSA: ?2.04 Study Date: ?? 05/12/2016 ?Pt. Type: Outpatient Tape: ? 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 120/80 SUMMARY: 1. Patient is status post pericardial stripping. There is no evidence of residual pericardial constriction. 2. Asymmetric septal wall hypertrophy is observed but there is no evidence of LVOT obstruction. Global left ventricular systolic function appears hyperdynamic. ??Ejection fraction is estimated to be 80%. GLS -16.4%. There are no left ventricular segmental wall motion abnormalities. Left ventricular diastolic function is normal. 3. Right ventricular global systolic function is mildly reduced. The estimated pulmonary artery systolic pressure is 28 mmHg. The estimated right atrial pressure is 3 mmHg. 4. There is no hemodynamically significant valve disease. Findings ? : Left Ventricle: ? The left ventricular chamber size is normal. ?Asymmetric septal wall hypertrophy is observed. ?There is no evidence of LVOT obstruction. ?No ventricular septal defect is visualized. ?Global left ventricular systolic function appears hyperdynamic. Ejection fraction is estimated to be 80%. GLS -16.4% ?There are no left ventricular segmental wall motion abnormalities. ?Left ventricular diastolic function is normal. ?Doppler assessment is consistent with normal left sided filling pressure. Left Atrium: ? The left atrium is normal in size. ?There is no evidence of a patent foramen ovale by color Doppler. Right Ventricle: ? The right ventricle is normal in size. ?Right ventricular global systolic function is mildly reduced. ?The estimated pulmonary artery systolic pressure is 28 mmHg. ?The estimated right atrial pressure is 3 mmHg. Right Atrium: ? The right atrium is normal in size. Aortic Valve: ? The aortic valve is tricuspid. ?Systolic excursion of the aortic valve is normal. ?There is no evidence of aortic valve stenosis. ?There is no evidence of aortic regurgitation. Mitral Valve: ? The mitral valve leaflets appear normal. ?There is trace mitral regurgitation present. Tricuspid Valve: ? The tricuspid valve leaflets are morphologically normal. ?There is mild to moderate (1-2+/4+) tricuspid regurgitation present. Pulmonic Valve: ? The pulmonic valve appears normal. ?There is trace pulmonic regurgitation present. Pericardium: ? The pericardium appears normal and there is no evidence of a pericardial effusion. S/p pericardial stripping 04/2013. Aorta: ? The aortic root is normal in size. ?The ascending aorta is normal in size. Pulmonary Artery: ? The main pulmonary artery appears normal. Venous: ? The inferior vena cava appears normal in size. ?There is a greater than 50% respiratory change in the inferior vena cava dimension. ?Hepatic vein systolic flow is normal. Misc: ? There is no hemodynamically significant valve disease. ?Two-dimensional echo, spectral Doppler and color Doppler performed. ?Myocardial Strain Imaging Chambers 2D ?Value ?Units (Range) ? IVSd (2D) ? 1.7 ?cm ? LVPWd (2D) ?0.7 ?cm ? IVS:LVPW ratio (2D) 2.3 ?ratio ? LVIDd (2D) ?2.6 ?cm ? LVIDs (2D) ?1.4 ?cm ? LVIDd (2D) index ?1.3 ?cm/m2 ? LVIDs (2D) index ?0.7 ?cm/m2 ? LV FS (2D) ?46 ? % ? EF Teichholz (2D) ?? 79 ? % ? Ao root diameter (2D2.7 ?cm (2.1 - 3.6) ? Ascending Ao ?2.4 ?cm (2 - 3.5) ? Volumes/Mass ?Value ?Units (Range) ? LA Area 4 CH ?14.2 ? cm2 (<21) ? LA ESV BP (A/L) inde13.2 ? ml/m2 ? RA AREA 4CH ? 10.7 ? cm2 ? LA ESV SP 4CH (MOD) 31.2 ? ml ? LA ESV SP 2CH (MOD) 21 ? ml ? LV ESV SP 4CH (MOD) 12.9 ? ml ? Global Longiitudinal-16.4 ?% (-30 - -10) ? LV mass (2D) ?90.1 ? g ? LV mass (2D) index ??44.2 ? g/m2 ? Diastolic/Systolic Function ?Value ?Units (Range) ? MV E-wave Vmax ?0.9 ?m/sec ? MV deceleration skwq119.2 ?msec ? MV A-wave Vmax ?0.7 ?m/sec ? MV E:A ratio ?1.2 ?ratio ? LV septal e' Vmax ?? 0.1 ?m/sec ? LV lateral e' Vmax ??0.1 ?m/sec ? LV average e' Vmax ??0.1 ?m/sec ? LV E:e' septal ratio12.8 ? ratio ? LV E:e' lateral rati7.5 ?ratio ? LV average E:e' rati9 ?ratio ? Tricuspid Valve ?Value ?Units (Range) ? TR Vmax ? 2.5 ?m/sec ? TR peak gradient ?25.4 ? mmHg ? RAP ? 3 ?mmHg ? RVSP ?28 ? mmHg ? Measurement Trending Name ? 05/12/2016 ? LVIDd (2D) ? 2.65 LVIDs (2D) ? 1.43 Wall Motion: Segment Name ?Rest ? Base-Anteroseptal ?? Normal ? Base-Anterior ? Normal ? Base-Anterolateral ??Normal ? Base-Posterolateral Normal ? Base-Inferior ? Normal ? Base-Inferoseptal ?? Normal ? Mid-Anteroseptal ?Normal ? Mid-Anterior ?Normal ? Mid-Anterolateral ?? Normal ? Mid-Posterolateral ??Normal ? Mid-Inferior ?Normal ? Mid-Inferoseptal ?Normal ? [place]-Septal ? Normal ? [place]-Anterior ? Normal ? [place]-Lateral ?Normal ? [place]-Inferior ? Normal ? [place]-Tip ?Normal ? This report has been electronically signed by: Woodrow Collado M.D. ? 05/12/2016 14:33:34 Images reviewed and interpretation verified [facility] Cardiac Ultrasound Laboratory Procedure Note Woodrow Collado MD - 05/12/2016 Procedure: Transthoracic Echocardiogram Patient: RUBA Ovalle (Age): 1965(50y) Med Rec#: [id number] Sex: F Site Loc: [facility] Ht / Wt: 157(cm)/106(kg) Pt. Loc: Echo Lab BSA: 2.04 Study Date: 05/12/2016 Pt. 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 Patient is status post pericardial [...] There is no hemodynamically significant valve disease. Findings : Left Ventricle: The left ventricular chamber size is normal. Asymmetric septal wall hypertrophy is observed. There is no evidence of LVOT obstruction. No ventricular septal defect is visualized. Global left ventricular systolic function appears hyperdynamic. Ejection fraction is estimated to be 80%. GLS -16.4% There are no left ventricular segmental wall motion abnormalities. Left ventricular diastolic function is normal. Doppler assessment is consistent with normal left sided filling pressure. Left Atrium: The left atrium is normal in size. There is no evidence of a patent foramen ovale by color Doppler. Right Ventricle: The right ventricle is normal in size. Right ventricular global systolic function is mildly reduced. The estimated pulmonary artery systolic pressure is 28 mmHg. The estimated right atrial pressure is 3 mmHg. Right Atrium: The right atrium is normal in size. Aortic Valve: The aortic valve is tricuspid. Systolic excursion of the aortic valve is normal. There is no evidence of aortic valve stenosis. There is no evidence of aortic regurgitation. Mitral Valve: The mitral valve leaflets appear normal. There is trace mitral regurgitation present. Tricuspid Valve: The tricuspid valve leaflets are morphologically normal. There is mild to moderate (1-2+/4+) tricuspid regurgitation present. Pulmonic Valve: The pulmonic valve appears normal. There is trace pulmonic regurgitation present. Pericardium: The pericardium appears normal and there is no evidence of a pericardial effusion. S/p pericardial stripping 04/2013. Aorta: The aortic root is normal in size. The ascending aorta is normal in size. Pulmonary Artery: The main pulmonary artery appears normal. Venous: The inferior vena cava appears normal in size. There is a greater than 50% respiratory change in the inferior vena cava dimension. Hepatic vein systolic flow is normal. Misc: There is no hemodynamically significant valve disease. Two-dimensional echo, spectral Doppler and color Doppler performed. Myocardial Strain Imaging Chambers 2D Value Units (Range) IVSd (2D) 1.7 cm LVPWd (2D) 0.7 cm IVS:LVPW ratio (2D) 2.3 ratio LVIDd (2D) 2.6 cm LVIDs (2D) 1.4 cm LVIDd (2D) index 1.3 cm/m2 LVIDs (2D) index 0.7 cm/m2 LV FS (2D) 46 % EF Teichholz (2D) 79 % Ao root diameter (2D2.7 cm (2.1 - 3.6) Ascending Ao 2.4 cm (2 - 3.5) Volumes/Mass Value Units (Range) LA Area 4 CH 14.2 cm2 (<21) LA ESV BP (A/L) inde13.2 ml/m2 RA AREA 4CH 10.7 cm2 LA ESV SP 4CH (MOD) 31.2 ml LA ESV SP 2CH (MOD) 21 ml LV ESV SP 4CH (MOD) 12.9 ml Global Longiitudinal-16.4 % (-30 - -10) LV mass (2D) 90.1 g LV mass (2D) index 44.2 g/m2 Diastolic/Systolic Function Value Units (Range) MV E-wave Vmax 0.9 m/sec MV deceleration vabk318.2 msec MV A-wave Vmax 0.7 m/sec MV E:A ratio 1.2 ratio LV septal e' Vmax 0.1 m/sec LV lateral e' Vmax 0.1 m/sec LV average e' Vmax 0.1 m/sec LV E:e' septal ratio12.8 ratio LV E:e' lateral rati7.5 ratio LV average E:e' rati9 ratio Tricuspid Valve Value Units (Range) TR Vmax 2.5 m/sec TR peak gradient 25.4 mmHg RAP 3 mmHg RVSP 28 mmHg Measurement Trending Name 05/12/2016 LVIDd (2D) 2.65 LVIDs (2D) 1.43 Wall Motion: Segment Name Rest Base-Anteroseptal Normal Base-Anterior Normal Base-Anterolateral Normal Base-Posterolateral Normal Base-Inferior Normal Base-Inferoseptal Normal Mid-Anteroseptal Normal Mid-Anterior Normal Mid-Anterolateral Normal Mid-Posterolateral Normal Mid-Inferior Normal Mid-Inferoseptal Normal [place]-Septal Normal [place]-Anterior Normal [place]-Lateral Normal [place]-Inferior Normal [place]-Tip Normal This report has been electronically signed by: Leonard Collado M.D. 05/12/2016 14:33:34 Images reviewed and interpretation verified [facility] Cardiac Ultrasound Laboratory Cornelius Sullivan II, MD ECHO ORDERABLES documented in this encounter Visit Diagnoses Diagnosis Constrictive pericarditis documented in this encounter Care Teams Regulatory Affairs Internship Relationship Specialty Start Date End Date Bernadette Childs MD [address] [place] [address] [address] [place] [address] PCP - General 04/03/12 07/27/20 documented as of this encounter
--- OUTSIDE RECORDS SUMMARY | 2023-09-06 01:39 | XMS_ITS | Encounter Summary ---
Author Organization [facility] Address [facility] [place] [address] Care Team Providers Care Wagon Person Name Role Phone Bernadette Childs MD Primary Care Provider [phone] Encounter Details Date Type Department Care Team (Late st Contact Info) Description 10/14/2017 8:05 AM EDT - 10/14/2017 11:59 PM EDT Hospital Encounter Non-[place] [address] Cornelius Sullivan II, MD [facility] [place] [address] FIGUEREDO (dyspnea on exertion); Type 2 diabetes [...] OIL 06/07/2018 PEN NEEDLE 31 gauge x /16 Needle use once daily FOR LANTUS PEN [...] EDT Office [place] [address] Mague Johnson MD [facility] DR [place]CRIN[place] [address] documented as of this encounter Procedures Procedure Name Priority Date/Time Associated Diagnosis Comments NUCLEAR PHARMACOLOGIC STRESS CARDIOLOGY Routine 10/14/2017 9:25 AM EDT FIGUEREDO (dyspnea on exertion) Type 2 diabetes mellitus without complication, with long-term current use of insulin documented in this encounter Results * Nuclear Pharmacologic Stress Cardiology (10/14/2017 9:25 AM EDT) Anatomical Region Laterality Modality Other Cornelius Sullivan II, MD CARDIAC SERVICE S ORDERABLES documented in this encounter Visit Diagnoses Diagnosis FIGUEREDO (dyspnea on exertion) Other dyspnea and respiratory abnormality Type 2 diabetes mellitus without complication, with long-term current use of insulin documented in this encounter Care Teams Wagon Person Relationship Specialty Start Date End Date Bernadette Childs MD [address] [place] [address] PCP - General 04/03/12 07/27/20 documented as of this encounter
--- OUTSIDE RECORDS SUMMARY | 2023-09-06 01:39 | XMS_ITS | Encounter Summary ---
Author Organization [facility] Address [facility] [place] [address] Care Team Providers Care Welding Machine Feeder Name Role Phone Bernadette Childs MD Primary Care Provider [phone] Reason for Visit * Reason Comments Medication Refill Encounter Details Date Type Department Care Team (Late st Contact Info) Description 09/15/2017 Refill Cardiology at [address] [address] Cornelius Sullivan II, MD [facility] [place] [address] Medication Refill Social History Tobacco Use Types [...] Telephone Encounter - Win Kim RN - 09/16/2017 7:41 AM EDT Requested Prescriptions Pending Prescriptions Disp Refills ??? metoprolol succinate (TOPROL-XL) 25 mg Tablet Sustained Release 24 hr [Pharmacy Med Name: METOPROLOL SUCC ER 25 MG TAB] 90 tablet 1 Sig: TAKE ONE TABLET BY MOUTH EVERY DAY Received an electronic prescription refill request for above Toprol XL from [facility], [place], [place]. Refill request for 90 days with 3 refills advanced, anticipating recommended follow up in February, Reviewed Epic record and last office note from Dr. Sullivan dated 09/07/2017. Refill prepped and forwarded to Provider for authorization Ritchie Kim RNcity controller Team Nurse [facility] documented in this encounter Plan of Treatment Upcoming Encounters Date Type Department Care Team (Late st Contact Info) Description 09/14/2023 11:00 AM EDT Office Visit [place] [address] Mague Johnson MD [facility] [place] [address] documented as of this encounter Visit Diagnoses Diagnosis Tachycardia, unspecified documented in this encounter Care Teams Welding Machine Feeder Relationship Specialty Start Date End Date Bernadette Childs MD [address] [facility] [address] [place] [address] PCP - General 04/03/12 07/27/20 documented as of this encounter
--- OUTSIDE RECORDS SUMMARY | 2023-09-06 01:39 | XMS_ITS | Encounter Summary ---
Author Organization [facility] [place] [address] Care Team Providers Care District Manager Major Accounts Sales Name Role Phone Bernadette Childs MD Primary Care Provider [phone] Encounter Details Date Type Department Care Team (Late st Contact Info) Description 01/07/2017 Orders Only Sleep [facility] at [facility] [address] [place] [address] Bhumika Nickerson MD [facility] DR [facility] [place] [address] BHARATI (obstructive sleep apnea) Social History Tobacco [...] 11:00 AM EDT Office [place] [address] Mague Johnson MD [facility] [place] [address] documented as of this encounter Visit Diagnoses Diagnosis BHARATI (obstructive sleep apnea) Obstructive sleep apnea (adult) (pediatric) documented in this encounter Care Teams District Manager Major Accounts Sales Relationship Specialty Start Date End Date Bernadette Childs MD [address] [place] [address] PCP - General 04/03/12 07/27/20 documented as of this encounter
--- OUTSIDE RECORDS SUMMARY | 2023-09-06 01:39 | XMS_ITS | Encounter Summary ---
Author Organization [facility] Address [facility] [place] [address] Care Team Providers Care Superintendent Custodian Janitor Name Role Phone Bernadette Childs MD Primary Care Provider [phone] Reason for Visit * Reason Onset Date Comments Other 05/24/2016 prescription ref ill Encounter Details Date Type Department Care Team (Late st Contact Info) Description 05/24/2016 Refill Cardiology at [address] [address] Cornelius Sullivan II, MD [facility] [place] [address] Other (prescription refill) Social History Tobacco Use Types Packs/Day Years [...] encounter Miscellaneous Notes * Telephone Encounter - Corinne Ramirez - 05/24/2016 3:30 PM EDT The patient called asking for spironolactone 50 mg, 1 per day, She uses [facility], [place], [place]. Thank you! documented in this encounter Plan of Treatment Upcoming Encounters Date Type Department Care Team (Late st Contact Info) Description 09/14/2023 11:00 AM EDT Office [place] [address] Mague Johnson MD [facility] [place] [address] documented as of this encounter Visit Diagnoses Not on filedocumented in this encounter Care Teams Superintendent Custodian Janitor Relationship Specialty Start Date End Date Bernadette Childs MD [address] [place] [address] PCP - General 04/03/12 07/27/20 documented as of this encounter
--- OUTSIDE RECORDS SUMMARY | 2023-09-06 01:39 | XMS_ITS | Encounter Summary ---
Author Organization [facility] [place] [address] Care Team Providers Care Train Station Agent Name Role Phone Bernadette Childs MD Primary Care Provider [phone] Encounter Details Date Type Department Care Team (Latest Contact Info) Description 05/12/2016 1:35 PM EDT Laboratory Appointment Lab [address] [place] [address] On potassium sparing diuretic therapy Social History Tobacco Use Types Packs/Day Years [...] 11:00 AM EDT Office [place] [address] Mague Johnson MD [facility] [place] [address] documented as of this encounter Procedures Procedure Name Priority Date/Time Associated Diagnosis Comments BASIC METABOLIC PANEL (NON-FASTING) Routine 05/12/2016 1:45 PM EDT On potassium sparing diuretic therapy documented in this encounter Results * (ABNORMAL) Basic Metabolic Panel (non-fasting) (05/12/2016 1:45 PM EDT) Glucose Lvl 134 65 - 199 mg/dL [facility] Comment:Diabetes: >=200 mg/d L plus symptoms BUN 14 8 - 18 mg/dL [facility] Creatinine 1.01 0.70 - 1.20 mg/dL [facility] Comment: Please note that the pediatric reference intervals supplied above were not validated at [facility]. Results from pediatric patients should be interpreted in conjunction to the patient's age, height and muscle mass. Sodium 140 135 - 145 mmol/L [facility] Potassium 4.5 3.5 - 5.0 mmol/L [facility] Comment: Please note: ??Patients with WBC >100,000 may have falsely elevated Potassium levels. ??For accurate Potassium quantification in these patients send serum separator tube (gold top) for subsequent determinations. ??Contact the Clinical Chemistry Laboratory if there are any questions. Chloride 100 98 - 107 mmol/L [facility] CO2 26 22 - 31 mmol/L [facility] Anion Gap 14 5 - 15 mmol/L [facility] Calcium 9.0 8.5 - 10.5 mg/dL [facility] Estimated GFR 58(L) >=60 [facility] Comment: This estimated GFR (eGFR) value [...] the following links into your internet browser. [email or web address] Blood specimen (specimen) 05/12/2016 1:45 PM EDT 05/12/2016 1:47 PM EDT Narrative Resulting Agency Comment Spec In Lab Cornelius Sullivan II, [place] [address] documented in this encounter Visit Diagnoses Diagnosis On potassium sparing diuretic therapy documented in this encounter Care Teams Train Station Agent Relationship Specialty Start Date End Date Bernadette Childs MD [address] [place] [address] PCP - General 04/03/12 07/27/20 documented as of this encounter
--- OUTSIDE RECORDS SUMMARY | 2023-09-06 01:39 | XMS_ITS | Encounter Summary ---
Author Organization [facility] [place] [address] Care Team Providers Care Claims Attorney Name Role Phone Bernadette Childs MD Primary Care Provider [phone] Encounter Details Date Type Department Care Team (Late st Contact Info) Description 12/23/2016 Orders Only Sleep Center at [facility] [address] [place] [address] Bhumika Nickerson MD [facility] [address] [facility] [address] Social History Tobacco Use Types Packs/Day Years [...] Progress Notes * Bhumika Nickerson MD - 12/23/2016 4:25 PM EDT Polysomnogram Order Form Room # Technologist Assignment: To be read by on PSG Patient Information Date of study: : 1965 Name: Teresita Beltre Height: 62in Weight: 237# 51 y.o. female Normal sleep hours: 11-8 Arrival Time: Physical/Mobility Limitations: No Cognitive Limitations: No Requires Male Tech: No Requires Female Tech: No Requires 1:1 Care: No Requires Parent/Caregiver: [place] of Parent/Caregiver staying: Using Home Oxygen: No At home sleeps in: Bed PSG Indications: moderate BHARATI -- needs CPAP titration Other Medical Conditions: h/o restrictive pericarditis s/p pericardial stripping; restrictive lung disease with chronic SOB; diastolic heart failure; diabetes, depression, anxiety PSG Orders Type of study: CPAP titration Additional data required: no Special instructions: no *Initiate CPAP/BPAP/oxygen per previously determined protocols unless otherwise specified. documented in this encounter Plan of Treatment Upcoming Encounters Date Type Department Care Team (Late st Contact Info) Description 09/14/2023 11:00 AM EDT Office [place] [address] Mague Johnson MD [facility] [address] [place] [address] documented as of this encounter Visit Diagnoses Not on filedocumented in this encounter Care Teams Claims Attorney Relationship Specialty Start Date End Date Bernadette Childs MD [address] [place] [address] [address] [place] [address] PCP - General 04/03/12 07/27/20 documented as of this encounter"
--- OUTSIDE RECORDS SUMMARY | 2023-09-06 01:39 | XMS_ITS | Encounter Summary ---
Author Organization [facility] Address [facility] [place] [address] Care Team Providers Care Pediatric Psychologist Name Role Phone Bernadette Childs MD Primary Care Provider [phone] Reason for Visit * Reason Onset Date Comments Appointment 08/31/2016 SCHEDULE PFT Encounter Details Date Type Department Care Team (Late st Contact Info) Description 08/31/2016 [place]phone [place] [address] Eduard García Appointment (SCHEDULE PFT) Social History Tobacco Use Types Packs/Day Years [...] encounter Miscellaneous Notes * Telephone Encounter - Eduard García - 08/31/2016 8:40 AM EDT Got a call from Dr. Sullivan office asking that we get patient scheduled for a PFT and a visit with one of our rebeamer. Teresita is currently a patient of Dr. Tavares's I informed the secretary receptionist from Dr. Sullivan office that Dr. Tavares is booking into October, she will speak with Dr. Sullivan to see if that's acceptable. Called Teresita and she said she already had a PFT done in May and would get results sent to Dr. Sullivan before scheduling this one with us. She doesn't feel another one is necessary. Teresita is said she called us back if necessary documented in this encounter Plan of Treatment Upcoming Encounters Date Type Department Care Team (Late st Contact Info) Description 09/14/2023 11:00 AM EDT Office [place] [address] Mague Johnson MD [facility] [place] [address] documented as of this encounter Visit Diagnoses Not on filedocumented in this encounter Care Teams Pediatric Psychologist Relationship Specialty Start Date End Date Bernadette Childs MD [address] [place] [address] PCP - General 04/03/12 07/27/20 documented as of this encounter
--- OUTSIDE RECORDS SUMMARY | 2023-09-06 01:39 | XMS_ITS | Encounter Summary ---
Author Organization [facility] [place] [address] Care Team Providers Care Bundle Shaker Name Role Phone Bernadette Childs MD Primary Care Provider [phone] Reason for Referral * Diagnostic Test (Routine) - Closed Specialty Diagnoses / Procedures Referred By Controdriguez t Referred To Contact Radiology Diagnoses FIGUEREDO (dyspnea on exertion) Type 2 diabetes mellitus without complication, with long-term current use of insulin Procedures NM Pharmacologic Stress Myocardial Perfusion Cornelius Sullivan II, MD [facility] [address] [place] [address] [place] [address] Referral ID Status Reason Start Date Expiration Date V isits Requested Visits Authorized [id number] Closed Specialty Service Requested 09/23/2017 09/23/2018 4 4 * Diagnostic Test (Routine) - Specialty Diagnoses / Procedures Referred By Controdriguez thomas Referred To Contact Radiology Diagnoses FIGUEREDO (dyspnea on exertion) Type 2 diabetes mellitus without complication, with long-term current use of insulin Procedures NM Pharmacologic Stress CT Component Cornelius Sullivan II, MD [facility] DR [place] [address] [facility] [place] [address] Referral ID Status Reason Start Date Expiration Date Visits Requested Visits Authorized [id number] Specialty Service Requested 09/23/2017 09/23/2018 1 1 Encounter Details Date Type Department Care Team (Late st Contact Info) Description 09/23/2017 [place] [phone] Cornelius Sullivan II, MD [facility] DR [place] [address] Social History Tobacco Use Types Packs/Day Years [...] encounter Miscellaneous Notes * Telephone Encounter - Cornelius Sullivan II - 09/23/2017 5:11 PM EDT I received a request to write a letter giving cardiology clearance for Mrs. Beltre for bariatric surgery. Her RCRI risk calculates to 6.6% for major cardiac event based on her diabetes and history of heart failure. Her NSQIP risk calculates to average or below average risk for both laparoscopic and open gastric restrictive procedures with gastric bypass except for her risk of infection which isslightly above average again probably by virtue of her diabetes. Mrs. Beltre did have a stress test in July 2016 which did not show any significant ECG changes at 78% of age-predicted maximum heartrate, however, this is a submaximal test. Given her elevated RCRI risk I would recommend a pharmacologic nuclear stress test and if negative proceeding with a laparoscopic procedure if possible. I tried to reach Mrs. Beltre today but she was not available. I did leave a message with my recommendation and a request for her to call me back. Cornelius Sullivan MD documented in this encounter Plan of Treatment Upcoming Encounters Date Type Department Care Team (Late st Contact Info) Description 09/14/2023 11:00 AM EDT Office Visit [place] [address] Mague Johnson MD [facility] DR ENDOCRINOLOGY [place] [address] documented as of this encounter Results * NM Pharmacologic Stress [...] Sullivan II, MD IMG NM ORDERABL ES * Nuclear Pharmacologic Stress Cardiology (10/14/2017 9:25 AM EDT) Anatomical Region Laterality Modality Other Cornelius Sullivan II, MD CARDIAC SERVICE S ORDERABLES * NM Pharmacologic Stress Myocardial Perfusion (10/14/2017 [...] No significant incidental CT findings. Procedure Note hCava Miles MD - 10/14/2017 EXAMINATION: NM PHARMACOLOGIC [...] complication, with long-term current use of insulin FIGUEREDO (dyspnea on exertion) Other dyspnea and respiratory abnormality Type 2 diabetes mellitus without complication, with long-term current use of insulin FIGUEREDO (dyspnea on exertion) Other dyspnea and respiratory abnormality Type 2 diabetes mellitus without complication, with long-term current use of insulin documented in this encounter Care Teams Bundle Shaker Relationship Specialty Start Date End Date Bernadette Childs MD [address] [place] [address] PCP - General 04/03/12 07/27/20 documented as of this encounter
--- OUTSIDE RECORDS SUMMARY | 2023-09-06 01:39 | XMS_ITS | Encounter Summary ---
Author Organization [facility] Address [facility] [place] [address] Care Team Providers Care Gas Mask Inspector Name Role Phone Bernadette Childs MD Primary Care Provider [phone] Encounter Details Date Type Department Care Team (Late st Contact Info) Description 05/12/2016 2:30 PM EDT Office Visit Cardiology at [address] [address] Cornelius Sullivan II, MD [facility] [place] [address] Constrictive pericarditis Social History Tobacco Use Types [...] Sign Reading Time Taken Comments Blood Pressure 110/66 05/12/2016 2:20 PM EDT Pulse 78 05/12/2016 2:20 PM EDT Temperature - - Respiratory Rate - - Oxygen Saturation 97% 05/12/2016 2:20 PM EDT Inhaled Oxygen Concentration - - Weight 108.9 kg (240 lb) 05/12/2016 2:20 PM EDT Height 158.8 cm (5' 2.5) 05/12/2016 2:20 PM EDT Body Mass Index 43.2 05/12/2016 2:20 PM EDT documented in this encounter Progress Notes * Cornelius Sullivan II - 05/12/2016 2:30 PM EDT Patient Name: Teresita Beltre : 1965 Age: 50 y.o. Date of Visit: 05-12-2016 Primary Care Physician: Bernadette Childs MD Problem List: Patient Active Problem List Diagnosis ??? Pain in left arm ??? Chronic diastolic congestive heart failure ??? SOB (shortness of breath) ??? Chest pain ??? Fever ??? HCAP (healthcare-associated pneumonia) ??? Chronic right-sided heart failure ??? Cardiac cirrhosis ??? h/o Constrictive pericarditis S/p [place]ic[place] [facility] [place] ??? Ascites ??? Abdominal pain, RUQ (right upper quadrant) ??? Abnormal LFTs (liver function tests) I last saw Ms. Beltre on June 18, 2015. Since then, she says her symptoms have not changed much. Although the last time I saw her, I believe I had a history of greater than 2-flight dyspnea. However, she says that now that I must have misunderstood her that she has had 1-flight dyspnea pretty much since her surgery. Mercado also complains of 2-pillow orthopnea. She has paroxysmal nocturnal dyspnea but believes this is anxiety related. She denies any significant chest discomfort. She gets occasional episodes of postural lightheadedness. Her lower extremity edema is adequately controlled. She has prior pulmonary functions done here suggestive of restrictive disease according to Pulmonary. This has been attributed to her prior surgery. She has had recent PFTs which she says documents a worsening of the restriction. I do not have any documentation of her recent PFTs. Current Outpatient Prescriptions Medication Sig Dispense Refill ??? polyethylene glycol (MIRALAX) 17 gram Powder in Packet Take 17 g by mouth as needed. ??? spironolactone (ALDACTONE) 100 mg Tablet Take 1 tablet by mouth daily. (Patient taking differently: Take 50 mg by mouth daily.) 90 tablet PRN ??? meTOPROLOL succinate (TOPROL-XL) 25 mg Tablet Sustained Release 24 hr Take 1 tablet by mouth daily. 90 tablet 3 ??? furosemide (LASIX) 20 mg Tablet Take 1 tablet by mouth daily. 90 tablet 3 ??? insulin glargine (LANTUS SOLOSTAR) Insulin Pen Inject 30 Units subcutaneously nightly. ??? LORazepam (ATIVAN) 0.5 mg Tablet Take 0.5 mg by mouth nightly. ??? LORazepam (ATIVAN) 0.5 mg Tablet Take 0.5 mg by mouth every 6 hours as needed. ??? FLUoxetine (PROZAC) 40 mg capsule Take 1 capsule by mouth daily. ??? HYDROmorphone (DILAUDID) 2 mg tablet Take 2 mg by mouth every 4 hours as needed. ??? traZODone (DESYREL) 100 mg tablet Take 100 mg by mouth nightly. On physical exam, heart rate 78 and regular, blood pressure 110/66. Chest: Clear clear to auscultation. Cardiac exam: Normal S1 and S2, no rub, murmur or gallop is appreciated. Carotid upstrokes are brisk. There are no carotid bruits. Jugular venous pressure does not appear to be elevated. Abdomen exam reveals obesity without clear organomegaly, masses or tenderness. Examination of the extremities reveals no significant edema. Electrocardiogram reveals normal sinus rhythm with possible left atrial enlargement. Otherwise a borderline ECG, unchanged compared with her prior tracing in 2015. Echocardiogram performed today reveals no evidence of pericardial constriction. There is asymmetric septal wall hypertrophy but no evidence of LVOT obstruction. Global function is hyperdynamic with an ejection fraction of 80%. There are no segmental wall motion abnormalities and diastolic function is normal. PA systolic pressure 28, right atrial pressure 3. Of note, left atrial size is normal. ASSESSMENT: A 50-year-old female who is now 3 years status post pericardial stripping procedure. She has not had further evidence of pericardial constriction, but there has been echo evidence of left ventricular diastolic dysfunction. She has also had functional class 2-3 exertional dyspnea and pulmonary function testing consistent with a restrictive deficit. She has been treated with a combination of Lasix and spironolactone and her current echo no longer shows evidence of elevated filling pressures. Pulmonary has suggested that her restrictive deficit could be related to her postpericardiotomy procedure and I think this is the most likely explanation. She does not have any evidence of left atria dilatation either. She has had hyperkalemia, presumably due to her spironolactone. Her electrolytes today indicate that this problem has resolved. PLAN: 1. Continue current medications. 2. Return to this clinic in 1 year. Twenty minutes of this 30 minute visit was spent in face to face consultation with the patient. Cornelius Sullivan MD documented in this encounter Plan of Treatment Upcoming Encounters Date Type Department Care Team (Late st Contact Info) Description 09/14/2023 11:00 AM EDT Office [place] [address] Mague Johnson MD [facility] DR [place] [address] documented as of this encounter Procedures Procedure Name Priority Date/Time Associated Diagnosis Comments EKG 12-LEAD Routine 05/12/2016 2:39 PM EDT Constrictive pericarditis documented in this encounter Results * EKG 12 Lead (05/12/2016 2:39 PM EDT) Ventricular rate 82 BPM MUSE SYSTEM Atrial Rate 82 BPM MUSE SYSTEM P-R Interval 158 ms MUSE SYSTEM QRS Duration 76 ms MUSE SYSTEM Q-T Interval 396 ms MUSE SYSTEM QTC Calculated (Bezet) 462 ms MUSE SYSTEM Calculated P [place]o 17 degrees MUSE SYSTEM Calculated R [place] 34 degrees MUSE SYSTEM Calculated T [place]o 34 degrees MUSE SYSTEM INTERPRETATION Normal sinus rhythm Possible Left atrial enlargement Borderline ECG When compared with ECG of 10-JUL-2014 13:12, No significant change was found Confirmed by Nate SPENCE MD, Cornelius ([id number]) on 05/12/2016 3:56:02 PM MUSE SYSTEM 05/12/2016 2:39 PM EDT 05/12/2016 3:56 PM EDT Cornelius Sullivan II, MD ECG ORDERABLES [employer] documented in this encounter Visit Diagnoses Diagnosis Constrictive pericarditis documented in this encounter Care Teams Gas Mask Inspector Relationship Specialty Start Date End Date Bernaedtte Childs MD [address] [place] [address] PCP - General 04/03/12 07/27/20 documented as of this encounter
--- OUTSIDE RECORDS SUMMARY | 2023-09-06 01:39 | XMS_ITS | Encounter Summary ---
Author Organization [facility] Address [facility] [place] [address] Care Team Providers Care Supervisor Photocomposition Name Role Phone Bernadette Childs MD Primary Care Provider [phone] Encounter Details Date Type Department Care Team (Latest Contact Info) Description 10/05/2017 - 10/05/2017 11:59 PM EDT Hospital Encounter [place] [address] Avery Lozano MD [facility] [place] [address] Discharge Disposition: Home Social History Tobacco Use [...] 11:00 AM EDT Office [place] [address] Mague Johnson MD [facility] [place] [address] documented as of this encounter Procedures Procedure Name Priority Date/Time Associated Diagnosis Comments FILM LIBRARY STORAGE ONLY ULTRASOUND STUDY Routine 10/05/2017 12:00 AM EDT documented in this encounter Results * Film Library- Storage Only Ultrasound Study (10/05/2017 12:00 AM EDT) Narrative YOLY - 10/05/2017 5:33 PM EDT This exam is for storage only and is auto-finalizing. Avery Lozano MD IMG FILM LIBRARY ORD ERABLES Performing Organization Address City/State/[facility] Co de Phone Number [place], [place] documented in this encounter Visit Diagnoses Not on filedocumented in this encounter Care Teams Supervisor Photocomposition Relationship Specialty Start Date End Date Bernadette Childs MD [address] [facility] [place] [address] PCP - General 04/03/12 07/27/20 documented as of this encounter
--- OUTSIDE RECORDS SUMMARY | 2023-09-06 01:39 | XMS_ITS | Encounter Summary ---
Author Organization [facility] [place] [address] Care Team Providers Care Wax Ball Knock Out Worker Name Role Phone Bernadette Childs MD Primary Care Provider [phone] Encounter Details Date Type Department Care Team (Late st Contact Info) Description 03/07/2018 Ancillary Procedure [place] [phone] Noemi Sharma APRN [address] [place] [address] Social History Tobacco Use Types Packs/Day Years [...] 11:00 AM EDT Office [place] [address] Mague Johnson MD [facility] DR [place] [address] documented as of this encounter Procedures Procedure Name Priority Date/Time Associated Diagnosis Comments FILM LIBRARY STORAGE ONLY ULTRASOUND STUDY Routine 03/07/2018 12:00 AM EST documented in this encounter Results * Film Library- Storage Only Ultrasound Study (03/07/2018 12:00 AM EST) Narrative YOLY - 03/12/2022 12:37 PM EST This exam is auto-finalizing. It's purpose is for storage only. Noemi Sharma APRN IMG FILM LIBRARY ORDERABLES [place], [place] documented in this encounter Visit Diagnoses Not on filedocumented in this encounter Care Teams Wax Ball Knock Out Worker Relationship Specialty Start Date End Date Bernadette Childs MD [address] [place] [address] PCP - General 04/03/12 07/27/20 documented as of this encounter
--- OUTSIDE RECORDS SUMMARY | 2023-09-06 01:39 | XMS_ITS | Encounter Summary ---
Author Organization [facility] Address [facility] [place] [address] Care Team Providers Care Clinical Laboratory Director Name Role Phone Bernadette Childs MD Primary Care Provider Reason for Visit * Reason Comments Medication Refill Encounter Details Date Type Department Care Team (Late st Contact Info) Description 09/28/2018 Refill Cardiology at [address] [address] Cornelius Sullivan II, MD [facility] DR [place] [address] Medication Refill Social History Tobacco Use Types [...] encounter Miscellaneous Notes * Telephone Encounter - iWn Kim RN - 09/29/2018 8:36 AM EDT Requested Prescriptions Pending Prescriptions Disp Refills ??? metoprolol succinate (TOPROL-XL) 25 mg Tablet Sustained Release 24 hr [Pharmacy Med Name: METOPROLOL SUCC ER 25 MG TAB] 90 tablet 3 Sig: TAKE ONE TABLET BY MOUTH EVERY DAY Received an electronic prescription refill request for above Toprol XL from [facility], [place], [place]. Refill request for 90 days with 3 refills advanced, anticipating recommended follow up in May,. Reviewed Epic record and last office note from Dr. Sullivan dated 06/07/18. Plan: 1. Continue current medications Refill prepped and forwarded to Provider for authorization Ritchie Kim RNcable maintainer Team Nurse [facility] documented in this encounter Plan of Treatment Upcoming Encounters Date Type Department Care Team (Late st Contact Info) Description 09/14/2023 11:00 AM EDT Office [place] [address] Mague Johnson MD [facility] DR ENDOCRINOLOGY [place] [address] documented as of this encounter Visit Diagnoses Diagnosis Tachycardia, unspecified documented in this encounter Care Teams Clinical Laboratory Director Relationship Specialty Start Date End Date Bernadette Childs MD [address] [place] [address] PCP - General 04/03/12 07/27/20 documented as of this encounter
--- OUTSIDE RECORDS SUMMARY | 2023-09-06 01:39 | XMS_ITS | Encounter Summary ---
Author Organization [facility] Address [facility] [place] [address] Care Team Providers Care Production Analyst Name Role Phone Bernadette Childs MD Primary Care Provider [phone] Reason for Visit * Reason Comments Shortness of Breath Congestive Heart Failure Hyperlipidemia Pulmonary Hypertension Obstructive Sleep Apnea Encounter Details Date Type Department Care Team (Late st Contact Info) Description 09/07/2017 4:00 PM EDT Office Visit Cardiology at [address] [address] Cornelius Sullivan II, MD [facility] [place] [address] Cardiac cirrhosis; Chronic diastolic congestive heart failure; [...] Sign Reading Time Taken Comments Blood Pressure 100/70 09/07/2017 4:12 PM EDT Pulse 100 09/07/2017 4:12 PM EDT Temperature - - Respiratory Rate - - Oxygen Saturation 96% 09/07/2017 4:12 PM EDT Inhaled Oxygen Concentration - - Weight 108.9 kg (240 lb) 09/07/2017 4:12 PM EDT Height 156.2 cm (5' 1.5) 09/07/2017 4:12 PM EDT Body Mass Index 44.61 09/07/2017 4:12 PM EDT documented in this encounter Progress Notes * Cronelius Sullivan II - 09/07/2017 4:00 PM EDT Patient Name: Teresita Beltre : 1965 Age: 52 y.o. Date of Visit: 09/07/2017 Primary Care Physician: Bernadette Childs MD The [...] h/o Constrictive pericarditis S/p Pericardial stripping at [facility] [place] 05-04-13 ??? Ascites ??? Abdominal pain, RUQ (right upper quadrant) ??? Abnormal LFTs (liver function tests) ??? Hyperlipidemia Current medications were reviewed and include: Outpatient Prescriptions Marked as Taking for the 09/07/17 encounter (Office Visit) with Cornelius Sullivan II, MD Medication Sig Dispense Refill ??? gabapentin (NEURONTIN) 800 mg Tablet Take 800 mg by mouth 3 times daily. ??? UNABLE TO FIND 750 mg 2 times daily. Med Name: CBD OIL ??? PEN NEEDLE 31 gauge x 3/16 [...] Take 20 mg by mouth daily. ??? meTOPROLOL succinate (TOPROL-XL) 25 mg Tablet [...] Insulin Pen Inject 35 Units subcutaneously nightly. ??? LORazepam (ATIVAN) 0.5 mg Tablet Take 0.5 mg by mouth every 6 hours as needed. ??? traZODone (DESYREL) 100 mg tablet Take 100 mg by mouth nightly. Interval History: I last saw Mrs. Beltre on November 10, 2016. At that time she was still experiencing functional class III exertional dyspnea without much improvement. She had had a cardiopulmonary stress test in July 2016 which indicated that her shortness of breath was multifactorial: Restrictive lung disease, obesity, possible residual constriction and/or diastolic dysfunction, obstructivesleep apnea. Remarkably since then she has begun to improve. She notes to me that she is able to domuch more time on the exercise machines which she uses routinely. She is also able to do her housework for much longer stretches before she has to stop and rest. Unfortunately she is still limited to about 1 flight of stairs at a time. She has decided to undergo bariatric surgery and is currently going through that process. She had recent lab work done by her PCP and apparently her potassium was in the normal range. ROS: Otherwise a full review of systems is positive for fatigue, difficulty sleeping, frequent cough, dry mouth, and rash (shingles recently). Exam: Vital signs this visit: Vitals: 09/07/17 1612 BP: 100/70 Pulse: 100 SpO2: 96% Weight: 108.9 kg (240 lb) Height: 156.2 cm (5' 1.5) Chest: Clear to auscultation. Cardiac exam: Normal S1 and S2, rapid rhythm, no rub, murmur, gallop.Carotid upstrokes are brisk. No carotid bruits. Jugular venous pressure does not appear to be elevated. Abdominal exam reveals obesity without clear organomegaly, masses, tenderness. Examination of the extremities reveals no significant edema. Neurologic exam is grossly nonfocal. ECG: Sinus tachycardia, ventricular rate 103. Otherwise normal ECG. No results for input(s): WBC, HGB, HCT, PLATELET, NA, K, BUN, CREATININE, HA1C, ALT, CHLPL in the last 720 hours. Assessment: 52-year-old female with a history of constrictive pericarditis, probably related to a viral syndrome who is status post a pericardial stripping procedure about 4 years ago. She has had persistent exertional dyspnea due to multiple reasons as described above. At this point she is finallyimproving. She is anxious to undergo bariatric surgery and I think she is a reasonable candidate. Memo not feel that her cardiac conditions preclude such surgery. Plan: 1. Continue to encourage regular exercise 2. Have also encouraged following through with bariatric surgery 3. Continue current medications 4. Obtain the results of recent blood work performed by her PCP 5. Follow-up in this clinic in 6 months Cornelius Sullivan MD documented in this encounter Plan of Treatment Upcoming Encounters Date Type Department Care Team (Late st Contact Info) Description 09/14/2023 11:00 AM EDT Office [place] [address] Mague Johnson MD [facility] [place] [address] documented as of this encounter Procedures Procedure Name Priority Date/Time Associated Diagnosis Comments EKG 12-LEAD Routine 09/07/2017 4:17 PM EDT Cardiac cirrhosis Chronic diastolic congestive heart failure Chronic right-sided heart failure h/o Constrictive pericarditis Hyperlipidemia, unspecified hyperlipidemia type BHARATI (obstructive sleep apnea) SOB (shortness of breath) Tricuspid valve insufficiency, unspecified etiology documented in this encounter Results * EKG 12 Lead (09/07/2017 4:17 PM EDT) Ventricular rate 103 BPM MUSE SYSTEM Atrial Rate 103 BPM MUSE SYSTEM P-R Interval 142 ms MUSE SYSTEM QRS Duration 84 ms MUSE SYSTEM Q-T Interval 340 ms MUSE SYSTEM QTC Calculated (Bezet) 445 ms MUSE SYSTEM Calculated P Coyle 31 degrees MUSE SYSTEM Calculated R Coyle 39 degrees MUSE SYSTEM Calculated T Coyle 13 degrees MUSE SYSTEM INTERPRETATION Sinus tachycardia Left atrial enlargement Abnormal ECG When compared with ECG of 10-NOV-2016 11:24, No significant change was found Confirmed by Darren VOGT, Dillon ([id number]) on 09/08/2017 1:23:05 PM MUSE SYSTEM 09/07/2017 4:17 PM EDT 09/08/2017 1:23 PM EDT Cornelius Sullivan II, MD ECG [...] etiology documented in this encounter Care Teams Production Analyst Relationship Specialty Start Date End Date Bernadette Childs MD [address] [facility] [address] [place] [address] PCP - General 04/03/12 07/27/20 documented as of this encounter
--- OUTSIDE RECORDS SUMMARY | 2023-09-06 01:39 | XMS_ITS | Encounter Summary ---
Author Organization [facility] [place] [address] Care Team Providers Care Clerical Support Specialist Name Role Phone Bernadetet Childs MD Primary Care Provider [phone] Encounter Details Date Type Department Care Team (Latest Contact Info) Description 11/30/2016 3:00 PM EDT - 11/30/2016 11:59 PM EDT Hospital Encounter [place] [address] Mild persistent asthma, uncomplicated Discharge Disposition: Home Social History Tobacco Use [...] Tablet Take 20 mg by mouth daily. fluticasone (FLOVENT HFA) 110 mcg/actuation HFA Aerosol InhalerIndications:Mi ld persistent asthma, uncomplicated Inhale 2 puffs into the lungs 2 times daily. 1 Inhaler 3 11/30/2016 09/07/2017 omeprazole (PRILOSEC) 40 mg Capsule, Delayed Release(E.C.) Take 20 mg by mouth daily. 10/30/2021 glipiZIDE (GLUCOTROL) 10 mg Tablet Take 10 mg by mouth 2 times daily (before meals). 03/21/2017 meTOPROLOL succinate (TOPROL-XL) 25 mg Tablet Sustained Release 24 hrIndications:Tachyca rdia, unspecified Take 1 tablet by mouth daily. 90 tablet 3 07/12/2016 09/15/2017 spironolactone (ALDACTONE) 50 mg Tablet Take 1 tablet by mouth daily. 90 tablet 3 05/25/2016 07/16/2020 polyethylene glycol (MIRALAX) 17 gram Powder in Packet Take 17 g by mouth as needed. 12/15/2021 furosemide (LASIX) 20 mg TabletIndications:Flu id retention Take 1 tablet by mouth daily. 90 tablet 3 11/14/2014 07/16/2020 insulin glargine (LANTUS SOLOSTAR) Insulin Pen Inject 35 Units subcutaneously nightly. 06/07/2018 LORazepam (ATIVAN) 0.5 mg Tablet Take 0.5 mg by mouth every 6 hours as needed. 10/30/2021 HYDROmorphone (DILAUDID) 2 mg tablet Take 2 mg by mouth every 4 hours as needed. 03/21/2017 traZODone (DESYREL) 100 mg tablet Take 100 mg by mouth nightly. 10/30/2021 documented as of this encounter Procedure Notes * Garry Mcmanus MD - 11/30/2016 5:09 PM EDTAssociated Order(s): PULMONARY FUNCTION TEST Fraction of Exhaled Nitric Oxide (FeNO) Measurement Nitric oxide (NO) is recognized as a biomarker for eosinophilic airway inflammation, as is generally the case in asthma. Measuring NO in exhaled breath can help determine whether non-specific respiratory symptoms of wheezing, dyspnea, and cough are due to asthma. However, there are several important limitations of using this test to diagnose and treat asthma. Guidelines from a 2011 [place] [employer] (ATS) executive summary on the [...] FeNO of >20% occurring 2-6 weeks after anti- inflammatory treatmentinitiation is consistent with therapeutic efficacy. The FeNO in ppb for this patient at today's visit was 25 GARRY MCMANUS MD 11/30/2016 5:10 PM documented in this encounter Plan of Treatment Upcoming Encounters Date Type Department Care Team (Late st Contact Info) Description 09/14/2023 11:00 AM EDT Office Visit [place] [address] Mague Johnson MD [facility] [place] [address] documented as of this encounter Procedures Procedure Name Priority Date/Time Associated Diagnosis Comments COMMON PULMONARY FUNCTION TEST Routine 11/30/2016 5:10 PM EDT Mild persistent asthma, uncomplicated documented in this encounter Results * Pulmonary Function Testing [...] treat asthma. ?? Guidelines from a 2011 [place] [employer] (ATS) executive summary on the [...] documented in this encounter Visit Diagnoses Diagnosis Mild persistent asthma, uncomplicated Unspecified asthma documented in this encounter Care Teams Clerical Support Specialist Relationship Specialty Start Date End Date Bernadette Childs MD [address] [facility] [address] [place] [address] PCP - General 04/03/12 07/27/20 documented as of this encounter
--- OUTSIDE RECORDS SUMMARY | 2023-09-06 01:39 | XMS_ITS | Encounter Summary ---
Author Organization [facility] Address [facility] [place] [address] Care Team Providers Care Grinder [employer] Plant Name Role Phone Bernadette Childs MD Primary Care Provider [phone] Reason for Referral * Consultation (Routine) - Closed Specialty Diagnoses / Procedures Referred By Contac t Referred To Contact Sleep Center Diagnoses FIGUEREDO (dyspnea on exertion) Cornelius Sullivan II, MD [facility] [address] [facility] Sleep Medicine [address] [place] [address] Referral ID Status Reason Start Date Expiration Date V isits Requested Visits Authorized [id number] Closed Consult, Test & Treat 08/31/2016 08/31/2017 1 1 * Consultation (Routine) - Closed Specialty Diagnoses / Procedures Referred By Contac t Referred To Contact Pulmonology Diagnoses FIGUEREDO (dyspnea on exertion) SOB Procedures not Dr. Larson please Cornelius Sullivan II, MD [facility] [address] [facility] [address] [place] [phone] Referral ID Status Reason Start Date Expiration Date V isits Requested Visits Authorized [id number] Closed Consult, Test & Treat 08/31/2016 08/31/2017 1 1 Encounter Details Date Type Department Care Team (Late st Contact Info) Description 08/31/2016 [place] [address] Cornelius Sullivan II, MD [facility] [place] [address] FIGUEREDO (dyspnea on exertion) Social History Tobacco Use Types Packs/Day Years [...] 11:00 AM EDT Office [place] [address] Mague Johnson MD [facility] [place] [address] Scheduled Referrals Name Type Priority Associated Diagnoses Order Schedule Referral to Pulmonology Outpatient Referral Routine FIGUEREDO (dyspnea on exertion) Ordered: 08/31/2016 Referral to [facility] Outpatient Referral Routine FIGUEREDO (dyspnea on exertion) Ordered: 08/31/2016 documented as of this encounter Visit Diagnoses Diagnosis FIGUEREDO (dyspnea on exertion) Other dyspnea and respiratory abnormality documented in this encounter Care Teams Grinder [employer] Plant Relationship Specialty Start Date End Date Bernadette Childs MD [address] [place] [address] [address] [facility] 1 [place] [address] PCP - General 04/03/12 07/27/20 documented as of this encounter
--- OUTSIDE RECORDS SUMMARY | 2023-09-06 01:40 | XMS_ITS | Encounter Summary ---
Author [facility] [place] [address] Care Team Providers Care Animal Cruelty Investigation Supervisor Name Role Phone Bernadette Childs MD Primary Care Provider [phone] Reason for Visit * Reason Comments Pain Left shoulder, left hand pain Encounter Details Date Type Department Care Team (Late st Contact Info) Description 10/18/2013 2:15 PM EDT Office [place] [address] Maximo Spencer MD [facility] [place] [address] Brachial plexopathy (Primary Dx) Discharge Disposition: Home Social History Tobacco Use [...] Sign Reading Time Taken Comments Blood Pressure 120/73 10/18/2013 1:54 PM EDT Pulse 80 10/18/2013 1:54 PM EDT Temperature - - Respiratory Rate - - Oxygen Saturation - - Inhaled Oxygen Concentration - - Weight - - Height - - Body Mass Index - - documented in this encounter Progress Notes * Joey Chapman MD - 10/18/2013 2:12 PM EDT NEUROLOGY CLINIC [facility] [place] [address] Neurology Initial Visit: 10/18/2013 Patient name: Teresita Beltre Date of : 1965 CC: ? Carpal tunnel Teresita Beltre is seen today for consultation at the request of Dr. Miguel for left hand numbness/tingling. HPI: Teresita Beltre is a 48 y.o. 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 Right handed. Four hour surgery. She also has a history of adhesive capsulitis. Began very soon after the surgery. Starts in the shoulder, and radiates down in the hand. When it started it was in the 4th and 5th digit, but since physical therapy it worsens to the whole hand. She has difficulty reaching behind her as it will ache with numbnessdown the arm into the hand. Would drop things like crackers or potatoes in her left hand. Past Medical History Diagnosis Date ??? Diabetes mellitus ??? Pericarditis ??? Hyperlipidemia ??? Obesity ??? Anxiety ??? Depression ??? Cardiac cirrhosis Family History Problem Relation Age of Onset ??? Type 1 Diabetes ??? Autoimmune Disorder ??? Heart Disease Mother ??? Cerebrovasular Accident Mother 64 ??? Diabetes Mother ??? Diabetes Sister ??? Arthritis Sister ??? Arthritis Brother ??? Diabetes Brother ??? Arthritis Brother ??? Diabetes Brother ??? Diabetes Brother History Social History ??? Marital Status: Spouse Name: N/A Number of Children: N/A ??? Years of Education: N/A Occupational History ??? Not on file. Social History Main Topics ??? Smoking status: Former Smoker -- 0.2 packs/day for 15 years Types: Cigarettes Quit date: 02/20/1996 ??? Smokeless tobacco: Never Used ??? Alcohol Use: No ??? Drug Use: No ??? Sexually Active: Yes -- Male partner(s) Other Topics Concern ??? Not on file Social History Narrative ??? No narrative on file Outpatient Encounter Prescriptions as of 10/18/2013 Medication Sig Dispense Refill ??? FLUoxetine (PROZAC) 40 mg capsule Take 1 capsule by mouth daily. ??? HYDROmorphone (DILAUDID) 2 mg tablet Take 2 mg by mouth every 4 hours as needed. ??? furosemide (LASIX) 20 mg tablet Take 20 mg by mouth daily. ??? insulin glargine (LANTUS SOLOSTAR) pen injection Inject 10 Units subcutaneously nightly. ??? spironolactone (ALDACTONE) 100 mg tablet Take 100 mg by mouth daily. ??? metoprolol succinate (TOPROL-XL) 25 mg 24 hr tablet Take 1 tablet by mouth daily. 30 tablet 12 ??? albuterol (PROVENTIL) 2.5 mg /3 mL (0.083 %) nebulizer solution Take 2.5 mg by nebulization 3 times daily. ??? LORazepam (ATIVAN) 1 mg tablet 1-2 tablets at bedtime 60 tablet 3 ??? pantoprazole (PROTONIX) 40 mg tablet Take 20 mg by mouth daily. ??? traZODone (DESYREL) 100 mg tablet Take 100 mg by mouth nightly. Allergies Allergen Reactions ??? Latex Rash ??? Scopolamine Itching and Rash Itching erythematous rash resolved with scop patch removal. ??? Adhesive Bandage Localized Reaction ??? Amoxicillin Trihydrate Rash ??? Penicillins Rash ??? Sulfa (Sulfonamide Antibiotics) Rash Review of systems: Constitutional: No fevers or chills Eyes: No vision changes, no diplopia, no blurry vision ENMT: No rhinorrhea or pharyngitis, no meningismus CV: No chest pain or palpitations Resp: No cough, no shortness of breath GI: No nausea, vomiting, diarrhea or constipation : No dysuria, no incontinence Musculoskeletal: no muscle pain, weakness, swelling Heme: No bleeding or bruising Endo: No diabetes or thyroid disease Neuro: See HPI Psych: No depression, normal sleep [x] Review of systems otherwise negative Objective: Vitals: Temp: -- Heart Rate: [80] Resp: -- BP: (120)/(73) SpO2: -- Constitutional: Patient of apparent stated age, well nourished, well developed, no acute distress Neuro: Mental status: Alert, oriented to person, place, month, year, clear language, CN: PERRL, EOMI, visual yu full, trigeminal sensation intact, no facial asymmetry, hearing intact to whisper, no dysarthria, palate elevates symmetrically, tongue protrudes midline, SCM and trap strength intact Motor: Normal bulk and tone. LUE 4+/5, biceps, triceps, atrophy in left intrinsics, 4+/5 in left APB and 4+/5 intrinsics. Slight weakness in left wrist extension Sensation: Intact to light touch Reflexes: 2+ DTRs, downgoing toes Coordination: Finger to nose and heel to bauer intact, rapid alternating movements intact and symmetric Gait: Stable, steady, able to tandem, walk on toes and heels Labs: No new. Diagnostic Tests and Images: NCS/EMG: Normal median and ulnar studies on the left. Needle EMG shows some decreased recruitment in FDI, otherwise no signs of active denervation. Assessment and Plan: Teresita Beltre is a 48 y.o. female right handed woman with history of recent radical pericardectomy about 5 months ago presenting for evaluation of left upper extremity numbness, discomfort and weakness of the hand. It is entirely possible that due to the nature of the surgery there was some stretch of the lower portion of the brachial plexus that is causing her the discomfort she is speaking oftoday. She displays weakness in nerves supplied by median, ulnar and radial nerve on examination. There is no indication of carpal tunnel or pure ulnar neuropathy. Her electrical studies were normal other than some decreased recruitment in the left FDI which may be indicative of nerve irritation/injury. We advised her to continue with physical therapy on the left UE and if discomfort continues her PCP can consider using lidocaine patches. Thank you for this consultation Chiki Chapman DO Clinical Neurophysiology Fellow Neurology Staff Note I have reviewed the above resident's history during the visit and I agree with the details as written. My physical examination confirms the resident's findings. The assessment and plan were formulated in discussion with me at the time of the visit and I agree with them as documented. documented in this encounter Plan of Treatment Upcoming Encounters Date Type Department Care Team (Late st Contact Info) Description 09/14/2023 11:00 AM EDT Office Visit [place] [address] Mague Johnson MD [facility] [place] [address] documented as of this encounter Visit Diagnoses Diagnosis Brachial plexopathy- Primary Brachial plexus lesions documented in this encounter Care Teams Animal Cruelty Investigation Supervisor Relationship Specialty Start Date End Date Bernadette Childs MD [address] [place] [address] [place] [address] PCP - General 04/03/12 07/27/20 documented as of this encounter
--- OUTSIDE RECORDS SUMMARY | 2023-09-06 01:40 | XMS_ITS | Encounter Summary ---
Author Organization [facility] Address [facility] [place] [address] Care Team Providers Care Director Of Graduate Medical Education Name Role Phone Bernadette Childs MD Primary Care Provider [phone] Encounter Details Date Type Department Care Team (Late st Contact Info) Description 10/18/2013 External [place] [address] Maximo Spencer MD [facility] [place] [address] Social History Tobacco Use Types Packs/Day Years [...] 11:00 AM EDT Office [place] [address] Mague Johnson MD [facility] [place] [address] documented as of this encounter Procedures Procedure Name Priority Date/Time Associated Diagnosis Comments EMG SCAN Routine 10/18/2013 documented in this encounter Results * Scan Doc: EMG (10/18/2013) Maximo Spencer MD MEDIA MGR SCAN EXT O RDR/RSLT documented in this encounter Visit Diagnoses Not on filedocumented in this encounter Care Teams Director Of Graduate Medical Education Relationship Specialty Start Date End Date Bernadette Childs MD [address] [place] [address] [place] [address] PCP - General 04/03/12 07/27/20 documented as of this encounter
--- OUTSIDE RECORDS SUMMARY | 2023-09-06 01:40 | XMS_ITS | Encounter Summary ---
Author Organization [facility] Address [facility] [place] [address] Care Team Providers Care Mink Rancher Name Role Phone Bernadette Childs MD Primary Care Provider [phone] Encounter Details Date Type Department Care Team (Late st Contact Info) Description 08/09/2014 Telephone Cardiology at [address] [address] Cornelius Sullivan II, MD [facility] [place] [address] Social History Tobacco Use Types Packs/Day Years [...] Telephone Encounter - Cornelius Sullivan II - 08/13/2014 3:54 PM EDT Reviewed Ziopatch result (see below). Dr. Pool is concerned that ST at ~140 bpm at rest may actually be an atrial tachycardia. Suggests multilead monitor i.e. Holter. I called patient. She admits that she took diet supplement (Plexus Boost=stimulent) during the recording and it cause uncontrolled palpitations and she wound up in a local ER. ER doc told her to stop taking. I will order 48 hr holter to look again at HR and any persistent atrial tachycardia. Cornelius Sullivan MD * Telephone Encounter - Veronica Duran - 08/09/2014 12:36 PM EDT Teresita received her Ziopatch results on myD-H and would like to discuss them with you. Would you please call her at [phone]. Thank you. documented in this encounter Plan of Treatment Upcoming Encounters Date Type Department Care Team (Late st Contact Info) Description 09/14/2023 11:00 AM EDT Office [place] [address] Mague Johnson MD [facility] [place] [address] documented as of this encounter Results * Holter Monitor 48hr (08/15/2014 11:36 AM EDT) Anatomical Region Laterality Modality Other Narrative 08/26/2014 6:44 PM EDT Cardiac Electrophysiology Holter Study Hookup Date ??: ??15 August 2014 Duration ? : ??47 hours 59 minutes Indication ?? : ??Tachycardia Medications ??: ??None disclosed Result: Heart rate range was 53-129/minute, and averaged 83/minute. The rate histogram revealed a dominant peak at ~80/minute. The underlying rhythm throughout the recording period is sinus rhythm. The longest pause detected was 1.34 seconds. There were 27 isolated ectopic supraventricular beats detected, as well as 2 supraventricular couplets; <<1% of beats detected were non-sinus supraventricular beats. There was one 3 beat run of supraventricular tachycardia (161/minute) detected. There were no ectopic ventricular beats detected. There were no runs of ventricular tachycardia detected. The patient's log of symptoms contained no entries. Conclusion ?? : This monitor study was unremarkable; sinus rhythm was present throughout, and the burden of ectopic beats was low. Interpreted by Martin Pool M.D. Cornelius Sullivan II, MD CARDIAC SERVICE S ORDERABLES documented in this encounter Visit Diagnoses Diagnosis Tachycardia, unspecified Tachycardia, unspecified documented in this encounter Care Teams Mink Rancher Relationship Specialty Start Date End Date Bernadette Childs MD [address] [place] [address] PCP - General 04/03/12 07/27/20 documented as of this encounter
--- OUTSIDE RECORDS SUMMARY | 2023-09-06 01:40 | XMS_ITS | Encounter Summary ---
Author Organization [facility] Address [facility] [place] [address] Care Team Providers Care Rnfa Name Role Phone Bernadette Childs MD Primary Care Provider [phone] Encounter Details Date Type Department Care Team (Latest Contact Info) Description 12/24/2013 3:30 PM EST - 12/24/2013 11:59 PM EST Hospital [place] [address] SCHEDULE 1, PFT Nicko Larson MD [facility] [place] [address] SOB (shortness of breath) (Primary Dx) Discharge Disposition: Home Social History [...] Sig Dispensed Refills Start Date End Date LORazepam (ATIVAN) 0.5 mg Tablet Take 0.5 mg by mouth nightly. 11/10/2016 LORazepam (ATIVAN) 0.5 mg Tablet Take 0.5 mg by mouth every 6 hours as needed. 10/30/2021 FLUoxetine (PROZAC) 40 mg capsule Take 1 capsule by mouth daily. Reported on 08/19/2016 08/20/2013 11/10/2016 HYDROmorphone (DILAUDID) 2 mg tablet Take 2 mg by mouth every 4 hours as needed. 03/21/2017 furosemide (LASIX) 20 mg tablet Take 20 mg by mouth daily. 07/10/2014 metoprolol succinate (TOPROL-XL) 25 mg 24 hr tabletIndications:Tachy cardia, unspecified Take 1 tablet by mouth daily. 30 tablet 12 08/08/2013 02/05/2014 pantoprazole (PROTONIX) 40 mg tablet Take 20 mg by mouth daily. 11/20/2014 traZODone (DESYREL) 100 mg tablet Take 100 mg by mouth nightly. 10/30/2021 documented as of this encounter Procedure Notes * Sharita Levin MD - 12/25/2013 8:58 AM ESTAssociated Order(s): PULMONARY FUNCTION TEST The PImax is elevated. The PEmax is reduced. The reduced PEmax may suggest early neuromuscular disease. Clinical correlation is recommended. SHARITA LEVIN MD documented in this encounter Plan of Treatment Upcoming Encounters Date Type Department Care Team (Late st Contact Info) Description 09/14/2023 11:00 AM EDT Office [place] [address] Mague Johnson MD [facility] [place] [address] documented as of this encounter Procedures Procedure Name Priority Date/Time Associated Diagnosis Comments COMMON PULMONARY FUNCTION TEST Routine 12/25/2013 8:59 AM EST SOB (shortness of breath) documented in this encounter Results * Pulmonary Function Testing (12/25/2013 8:59 AM EST) Narrative Sharita Levin MD - 12/25/2013 8:59 AM EST Sharita Levin MD ? 12/25/2013 ??8:59 AM The PImax is elevated. The PEmax is reduced. The reduced PEmax may suggest early neuromuscular disease. Clinical correlation is recommended. SHARITA LEVIN MD Procedure Note Sharita Levin MD - 12/25/2013 8:58 AM EST The PImax is elevated. The PEmax is reduced. The reduced PEmax may suggestearly neuromuscular disease. Clinical correlation is recommended. SHARITA LEVIN MD Nicko Abdi MD PFT ORDERABLES documented in this encounter Visit Diagnoses Diagnosis SOB (shortness of breath)- Primary Shortness of breath documented in this encounter Care Teams Rnfa Relationship Specialty Start Date End Date Bernadette Childs MD [address] [address] PCP - General 04/03/12 07/27/20 documented as of this encounter
--- OUTSIDE RECORDS SUMMARY | 2023-09-06 01:40 | XMS_ITS | Encounter Summary ---
Author Organization [facility] [place] [address] Care Team Providers Care R D Intern Name Role Phone Bernadette Childs MD Primary Care Provider [phone] Encounter Details Date Type Department Care Team (Latest Contact Info) Description 08/15/2014 11:08 AM EDT - 08/15/2014 11:59 PM EDT Hospital Encounter Non-[place] [address] DELIVERY DIRECTOR, CM Tachycardia, unspecified Discharge Disposition: Home Social History Tobacco Use [...] 1 tablet by mouth daily. 30 tablet PRN 07/26/2014 10/04/2014 furosemide (LASIX) 20 mg TabletIndications:Fl uid retention Take 1 tablet by mouth daily. 30 tablet 12 07/26/2014 11/12/2014 insulin glargine (LANTUS SOLOSTAR) Insulin Pen Inject 35 Units subcutaneously nightly. 06/08/19 spironolactone (ALDACTONE) 100 mg Tablet Take 100 mg by mouth daily. 06/18/2015 LORazepam (ATIVAN) 0.5 mg Tablet Take 0.5 mg by mouth nightly. 11/10/2016 LORazepam (ATIVAN) 0.5 mg Tablet Take 0.5 mg by mouth every 6 hours as needed. 10/30/2021 FLUoxetine (PROZAC) 40 mg capsule Take 1 capsule by mouth daily. Reported on 08/19/2016 08/20/2013 11/10/2016 HYDROmorphone (DILAUDID) 2 mg tablet Take 2 mg by mouth every 4 hours as needed. 03/21/2017 pantoprazole (PROTONIX) 40 mg tablet Take 20 mg by mouth daily. 11/20/2014 traZODone (DESYREL) 100 mg tablet Take 100 mg by mouth nightly. 10/30/2021 documented as of this encounter Plan of Treatment Upcoming Encounters Date Type Department Care Team (Late st Contact Info) Description 09/14/2023 11:00 AM EDT Office [place] [address] Mague Johnson MD [facility] [place] [address] documented as of this encounter Procedures Procedure Name Priority Date/Time Associated Diagnosis Comments HOLTER MONITOR 48 HOUR Routine 08/15/2014 11:36 AM EDT Tachycardia, unspecified documented in this encounter Results * Holter Monitor 48hr [...] unspecified documented in this encounter Care Teams R D Intern Relationship Specialty Start Date End Date Bernadette Childs MD [address] [place] [address] [address] PCP - General 04/03/12 07/27/20 documented as of this encounter
--- OUTSIDE RECORDS SUMMARY | 2023-09-06 01:40 | XMS_ITS | Encounter Summary ---
Author Organization [facility] Address [facility] [place] [address] Care Team Providers Care Investor Name Role Phone Bernadette Childs MD Primary Care Provider [phone] Encounter Details Date Type Department Care Team (Late st Contact Info) Description 08/02/2013 Orders Only Cardiology at [address] [address] Cornelius Sullivan II, MD [facility] [place] [address] Social History Tobacco Use Types Packs/Day Years [...] 11:00 AM EDT Office [place] [address] Mague Johnson MD [facility] [place] [address] documented as of this encounter Procedures Procedure Name Priority Date/Time Associated Diagnosis Comments FILM LIBRARY STORAGE ONLY DX CHEST Routine 08/02/2013 7:45 AM EDT documented in this encounter Results * Film Library- Storage only DX Chest (08/02/2013 7:45 AM EDT) Anatomical Region Laterality Modality Other 08/02/2013 7:45 AM EDT Narrative 08/07/2013 7:51 AM EDT This is a Non-reportable exam Procedure Note 08/07/2013 This is a Non-reportable exam Cornelius Sullivan II, MD IMG FILM LIBRAR Y ORDERABLES documented in this encounter Visit Diagnoses Not on filedocumented in this encounter Care Teams Investor Relationship Specialty Start Date End Date Bernadette Childs MD [address] [place] [address] PCP - General 04/03/12 07/27/20 documented as of this encounter
--- OUTSIDE RECORDS SUMMARY | 2023-09-06 01:40 | XMS_ITS | Encounter Summary ---
Author Organization [facility] Address [facility] [address] [facility] [place] [address] Care Team Providers Care Meteorology Professor Name Role Phone Bernadette Childs MD Primary Care Provider [phone] Encounter Details Date Type Department Care Team (Late st Contact Info) Description 08/08/2013 3:30 PM EDT - 08/08/2013 11:59 PM EDT Hospital Encounter Non-Invasive [place] [phone] CARDIO, ECHO SIXTY MIN APPT None Edelmira Sullivan II, MD [facility] 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 07/10/2014 spironolactone (ALDACTONE) 50 mg tablet Take 50 mg by mouth daily. 10/02/2013 metoprolol succinate (TOPROL-XL) 25 mg 24 hr tabletIndications:Tachyc ardia, unspecified Take 1 tablet by mouth daily. 30 tablet 12 08/08/2013 02/05/2014 hydromorphone (DILAUDID) 4 mg tabletIndications:Abdomi nal pain, unspecified site Take 1 tablet by mouth every 4 hours as needed for Pain. 20 tablet 0 03/22/2013 10/02/2013 LORazepam (ATIVAN) 1 mg tabletIndications:Restle ss legs syndrome (RLS) 1-2 tablets at bedtime 60 tablet 3 10/24/2012 10/24/2013 pantoprazole (PROTONIX) 40 mg tablet Take 20 mg by mouth daily. 11/20/2014 traZODone (DESYREL) 100 mg tablet Take 100 mg by mouth nightly. 10/30/2021 documented as of this encounter Plan of Treatment Upcoming Encounters Date Type Department Care Team (Late st Contact Info) Description 09/14/2023 11:00 AM EDT Office [place] [address] Mague Johnson MD [facility] DR ENDOCRINOLOGY DEPT. [place] [id number] documented as of this encounter Procedures Procedure Name Priority Date/Time Associated Diagnosis Comments ECHOCARDIOGRAM TRANSTHORACIC Routine 08/08/2013 4:15 PM EDT Constrictive pericarditis documented in this encounter Results * Echocardiogram Transthoracic(Leb) (08/08/2013 4:15 PM EDT) EF 60 [employer] Anatomical Region Laterality Modality Other 08/08/2013 Narrative 08/08/2013 4:38 PM EDT Procedure: ? Transthoracic Echocardiogram Patient: ? RUBA PATE ?(Age): 1965(48) Med Rec#: ?[id number] ? Sex: ?F ? Site Loc: ?[facility] ? Ht / Wt: ??157.5(cm)/91(kg Pt. Loc: ? Echo Lab ? BSA: ?1.91 Study Date: ?08/08/2013 ? Pt. Type: Outpatient Tape: ? 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 SUMMARY: 1. Status post complete pericardectomy (05/04/13, [facility]) for constrictive pericarditis. 2. The left ventricular chamber size is normal. ??There is normal global left ventricular systolic function. ??Ejection fraction is estimated to be 60%. ??Doppler assessment is consistent with normal left sided filling pressure. 3. The right ventricle is normal in size. ??Right ventricular global systolic function is normal. ??The estimated pulmonary artery systolic pressure is 23 mmHg. 4. There is no significant valve disease. 5. No effusion is present. ??There is no evidence for constrictive physiology. ?? 6. The inferior vena cava appears normal in size. ??The estimated right atrial pressure is 3 mmHg. 7. See remainder of report for additional findings. ??Compared to the TTE performed 03/14/13, significant changes have occurred. ?? FINDINGS: Study Quality ?Adequate Left Ventricle ?The left ventricular chamber size is normal. ?There is mild septal hypertrophy of the left ventricle. ?There is normal global left ventricular systolic function. ??Ejection fraction is estimated to be 60%. ?There are no left ventricular segmental wall motion abnormalities. ?Post-cardiotomy septal wall motion is present. ?Doppler assessment is consistent with normal left sided filling pressure. Left Atrium ?The left atrium is normal in size. Right Ventricle ?The right ventricle is normal in size. ?Right ventricular global systolic function is normal. ?The estimated pulmonary artery systolic pressure is 23 mmHg. ?The estimated right atrial pressure is 3 mmHg. Right Atrium ?The right atrium is normal in size. Aortic Valve ?The aortic valve is trileaflet. The leaflets are thin with normal excursion. There is no aortic stenosis or regurgitation present. Mitral Valve ?The mitral valve appears normal in structure and function. ?There is trace mitral regurgitation present. Tricuspid Valve ?The tricuspid valve appears normal in structure and function. ?There is trace tricuspid regurgitation present. Pulmonic Valve ?The pulmonic valve appears normal in structure and function. Pericardium ?There is no pericardial effusion. Aorta ?The aortic root is normal in size. ?The ascending aorta is normal in size. Pulmonary Artery ?The main pulmonary artery appears normal. Venous ?The inferior vena cava appears normal in size. ?There is a greater than 50% respiratory change in the inferior vena cava dimension. Misc ?There is no hemodynamically significant valve disease. ?See remainder of report for additional findings. ?Two-dimensional echo, spectral Doppler and color Doppler performed. Wall Motion: Segment Name ?Rest ? Base-Anteroseptal ?? Normal ? Base-Anterior ? Normal ? Base-Anterolateral ??Normal ? Base-Posterolateral Normal ? Base-Inferior ? Normal ? Base-Inferoseptal ?? Normal ? Mid-Anteroseptal ?Normal ? Mid-Anterior ?Normal ? Mid-Anterolateral ?? Normal ? Mid-Posterolateral ??Normal ? Mid-Inferior ?Normal ? Mid-Inferoseptal ?Normal ? [place]-Septal ? Normal ? [place]-Anterior ? Normal ? [place]-Lateral ?Normal ? [place]-Inferior ? Normal ? [place]-Tip ?Normal ? Chambers ?Value ?Units (Range) ? IVSd MM ? 0.8 ?cm (0.3 to 1.1) ? LVIDd MM ?2.9 ?cm (3.7 to 5.6) ? PWd MM ?0.8 ?cm (0.6 to 1.1) ? LVIDs MM ?1.6 ?cm (2.3 to 3.9) ? LVFS MM ? 45 ? % (28 to 42) ? IVSd 2D ? 1.3 ?cm ? LV mass ? 56.1 ? gm ? LA area ? 13 ? cm2 (<21) ? RA area ? 11 ? cm2 (<18) ? Ao root ? 2.7 ?cm (2.1 to 3.6) ? Asc Ao ?2.6 ?cm (2 to 3.5) ? Mitral Valve ?Value ?Units (Range) ? E peak ?0.8 ?m/sec ? E/A ratio ? 0.8 ?ratio ? E1 ?0.11 ? m/sec ? E/E1 ?7.3 ?ratio ? Tricuspid/Pulmonic Valves ?Value ?Units (Range) ? TR peak janet ? 2.1 ?m/sec ? RAP ? 3 ?mmHg ? RVSP/PASP ? 23 ? mmHg ? This report has been electronically signed by: Dillon Banks. ? 08/08/2013 16:37:53 Images reviewed and interpretation verified [facility] Cardiac Ultrasound Laboratory Procedure Note Dillon Banks MD - 08/08/2013 Procedure: Transthoracic Echocardiogram Patient: RUBA FRANCISCO(Age): 1965(48) Med Rec#: [id number] Sex: F Site Loc: [facility] Ht / Wt: 157.5(cm)/91(kg Pt. Loc: Echo Lab BSA: 1.91 Study Date: 08/08/2013 Pt. 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 Status post complete pericardectomy (05/04/13, [facility]) for constrictive pericarditis. 2. The left ventricular [...] TTE performed 03/14/13, significant changes have occurred. FINDINGS: Study Quality Adequate Left Ventricle The left ventricular chamber size is normal. There is mild septal hypertrophy of the left ventricle. There is normal global left ventricular systolic function. Ejection fraction is estimated to be 60%. There are no left ventricular segmental wall motion abnormalities. Post-cardiotomy septal wall motion is present. Doppler assessment is consistent with normal left sided filling pressure. Left Atrium The left atrium is normal in size. Right Ventricle The right ventricle is normal in size. Right ventricular global systolic function is normal. The estimated pulmonary artery systolic pressure is 23 mmHg. The estimated right atrial pressure is 3 mmHg. Right Atrium The right atrium is normal in size. Aortic Valve The aortic valve is trileaflet. The leaflets are thin with normal excursion. There is no aortic stenosis or regurgitation present. Mitral Valve The mitral valve appears normal in structure and function. There is trace mitral regurgitation present. Tricuspid Valve The tricuspid valve appears normal in structure and function. There is trace tricuspid regurgitation present. Pulmonic Valve The pulmonic valve appears normal in structure and function. Pericardium There is no pericardial effusion. Aorta The aortic root is normal in size. The ascending aorta is normal in size. Pulmonary Artery The main pulmonary artery appears normal. Venous The inferior vena cava appears normal in size. There is a greater than 50% respiratory change in the inferior vena cava dimension. Misc There is no hemodynamically significant valve disease. See remainder of report for additional findings. Two-dimensional echo, spectral Doppler and color Doppler performed. Wall Motion: Segment Name Rest Base-Anteroseptal Normal Base-Anterior Normal Base-Anterolateral Normal Base-Posterolateral Normal Base-Inferior Normal Base-Inferoseptal Normal Mid-Anteroseptal Normal Mid-Anterior Normal Mid-Anterolateral Normal Mid-Posterolateral Normal Mid-Inferior Normal Mid-Inferoseptal Normal [place]-Septal Normal [place]-Anterior Normal [place]-Lateral Normal [place]-Inferior Normal [place]-Tip Normal Chambers Value Units (Range) IVSd MM 0.8 cm (0.3 to 1.1) LVIDd MM 2.9 cm (3.7 to 5.6) PWd MM 0.8 cm (0.6 to 1.1) LVIDs MM 1.6 cm (2.3 to 3.9) LVFS MM 45 % (28 to 42) IVSd 2D 1.3 cm LV mass 56.1 gm LA area 13 cm2 (<21) RA area 11 cm2 (<18) Ao root 2.7 cm (2.1 to 3.6) Asc Ao 2.6 cm (2 to 3.5) Mitral Valve Value Units (Range) E peak 0.8 m/sec E/A ratio 0.8 ratio E1 0.11 m/sec E/E1 7.3 ratio Tricuspid/Pulmonic Valves Value Units (Range) TR peak janet 2.1 m/sec RAP 3 mmHg RVSP/PASP 23 mmHg This report has been electronically signed by: Dillon Banks 08/08/2013 16:37:53 Images reviewed and interpretation verified [facility] Cardiac Ultrasound Laboratory Edelmira Sullivan II, MD ECHO ORDERABLES documented in this encounter Visit Diagnoses Diagnosis Constrictive pericarditis documented in this encounter Care Teams Meteorology Professor Relationship Specialty Start Date End Date Bernadette Childs MD [address] [place] [address] PCP - General 04/03/12 07/27/20 documented as of this encounter
--- OUTSIDE RECORDS SUMMARY | 2023-09-06 01:40 | XMS_ITS | Encounter Summary ---
Author Organization Count Includes [facility] [address] Care Team Providers Care Manager Agricultural Name Role Phone Bernadette Childs MD Primary Care Provider [phone] Encounter Details Date Type Department Care Team (Latest Contact Info) Description 07/10/2014 1:43 PM EDT - 07/10/2014 11:59 PM EDT Hospital Encounter [place] [id number] [employer]ATE, CM Tachycardia, unspecified Discharge Disposition: Home Social [...] Sig Dispensed Refills Start Date End Date insulin glargine (LANTUS SOLOSTAR) Insulin Pen Inject 35 Units subcutaneously nightly. 06/08/19 spironolactone (ALDACTONE) 100 mg Tablet Take 100 mg by mouth daily. 06/18/2015 LORazepam (ATIVAN) 0.5 mg Tablet Take 0.5 mg by mouth nightly. 11/10/2016 LORazepam (ATIVAN) 0.5 mg Tablet Take 0.5 mg by mouth every 6 hours as needed. 022 FLUoxetine (PROZAC) 40 mg capsule Take 1 [...] 11:00 AM EDT Office [place] [address] Mague Johnson MD [facility] [place] [address] documented as of this encounter Procedures Procedure Name Priority Date/Time Associated Diagnosis Comments ZIOPATCH Routine 07/10/2014 1:54 PM EDT Tachycardia, unspecified documented in this encounter Results * ZIOPATCH (07/10/2014 1:54 PM EDT) Anatomical Region Laterality Modality Other Narrative 08/04/2014 5:37 PM EDT Cardiac Electrophysiology Zio Monitor Study Initiated: ??July 10, 2014 Duration: ?? 4 days 19 hours (after removal of artifact) Indication: Tachycardia Result: The heart rate range was 55-266/minute, and averaged 96/minute. The predominant underlying rhythm throughout the recording period was conducted sinus rhythm. The slowest heart rates and least amount of heart rate variation occurred overnight. No pauses >3 seconds were seen, and there was no type II second degree or third degree atrioventricular conduction block reported or observed. There were rare isolated ectopic supraventricular beats detected, as well as couplets and triplets (<1.0%). There were 5 supraventricular tachycardia runs detected (the fastest was 12 beats at a maximum rate of 266/minute, and the longest was for 20 beats/seconds at a mean rate of 155/minute). There were rare isolated ectopic ventricular beats detected, as well as couplets (<1.0%). There were no ventricular tachycardia runs detected. The patient wrote in 4 diary entries (variable symptoms of shortness of breath, fluttering/racing, anxiety - all but one entry was asssociated with activity or stress); at rest she exhibited a heart rate of 155/minute, whereas the other episodes corresponded to sinus rates ranging from 98-127/minute. There were 5 patient-triggered events that corresponded to apparent sinus tachycardia 118-159/minute. Conclusion: Very limited nonsustained supraventricular tachycardia is present at minimum, which may be re-entrant; sinus tachycardia is present, but atrial tachycardia also should be considered as a possibility. There may be some value to obtaining greater multilead detail via a Holter evaluation. Of particular note was the heart rate of 155/minute that was associated with the diary entry stating she was resting at the time (lasting more than an hour) - although this had been classified as sinus rhythm by the technical service. ____ Interpreted by Martin Pool M.D. Cornelius Sullivan II, MD CARDIAC SERVICE S ORDERABLES documented in this encounter Visit Diagnoses Diagnosis Tachycardia, unspecified documented in this encounter Care Teams Manager Agricultural Relationship Specialty Start Date End Date Bernadette Childs MD [address] [place] [address] PCP - General 04/03/12 07/27/20 documented as of this encounter
--- OUTSIDE RECORDS SUMMARY | 2023-09-06 01:40 | XMS_ITS | Encounter Summary ---
Author Organization [facility] [place] [address] Care Team Providers Care Barrel Lathe Operator Outside Name Role Phone Bernadette Childs MD Primary Care Provider [phone] Encounter Details Date Type Department Care Team (Late st Contact Info) Description 08/17/2014 Telephone Cardiology at [address] [address] Maximilian Alford MD [facility] [place] [address] Social History Tobacco Use Types Packs/Day Years [...] encounter Miscellaneous Notes * Telephone Encounter - Maximilian Alford - 08/17/2014 10:48 PM EDT Cardiology Phone Note Teresita called me to say that the ground wire on her Holter got stuck on her nightshirt. She stuck it back on her body but now the light is not flashing on the Holter box. She is worried that it might not be recording. I instructed her to keep the wires attached as directed. If the Holter is not recording, it will bepossible to repeat it. She agreed with this plan. Maximilian Alford MD Business Support Professional Pager [phone] documented in this encounter Plan of Treatment Upcoming Encounters Date Type Department Care Team (Late st Contact Info) Description 09/14/2023 11:00 AM EDT Office [place] [address] Mague Johnson MD [facility] [place] [address] documented as of this encounter Visit Diagnoses Not on filedocumented in this encounter Care Teams Barrel Lathe Operator Outside Relationship Specialty Start Date End Date Bernadette Childs MD [address] [place] [address] PCP - General 04/03/12 07/27/20 documented as of this encounter
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
--- OUTSIDE RECORDS SUMMARY | 2023-09-06 01:40 | XMS_ITS | Encounter Summary ---
Author Organization [place] [address] Care Team Providers Care Cold Strip Feeder Name Role Phone Bernadette Childs MD Primary Care Provider Encounter Details Date Type Department Care Team (Late st Contact Info) Description 02/27/2014 Telephone Cardiology at [address] [address] Rosa Caba, RN Social History Tobacco Use Types Packs/Day [...] encounter Miscellaneous Notes * Telephone Encounter - Rosa Glover RN - 02/27/2014 12:47 PM EST Teresita called reporting that at her last visit with Dr Sullivan her metoprolol was stopped. She states she felt better while on the metoprolol. Now that she is off of it, she feels that her heart is in her throat and she is more fatigued. She cannot get out of bed until around noontime. Asking if she can go back on the metoprolol. Will review with Dr Sullivan: That's fine. She was on 25 mg of Toprol per Day NN Pt notified and agreeable documented in this encounter Plan of Treatment Upcoming Encounters Date Type Department Care Team (Late st Contact Info) Description 09/14/2023 11:00 AM EDT Office Visit [place] [address] Mague Johnson MD [facility] DR ENDOCRINOLOGY [place] [address] documented as of this encounter Visit Diagnoses Not on filedocumented in this encounter Care Teams Cold Strip Feeder Relationship Specialty Start Date End Date Bernadette Childs MD [address] [place] [address] PCP - General 04/03/12 07/27/20 documented as of this encounter
--- OUTSIDE RECORDS SUMMARY | 2023-09-06 01:40 | XMS_ITS | Encounter Summary ---
Author Organization [facility] Address [facility] [place] [address] Care Team Providers Care Sales Coordinator Name Role Phone Bernadette Childs MD Primary Care Provider [phone] Reason for Visit * Reason Comments Referral Encounter Details Date Type Department Care Team (Late st Contact Info) Description 12/24/2013 2:00 PM EST Office [place] [address] [facility] [place] [address] SOB (shortness of breath) (Primary Dx) Discharge [...] Sign Reading Time Taken Comments Blood Pressure 126/87 12/24/2013 2:02 PM EST Pulse 83 12/24/2013 2:02 PM EST Temperature - - Respiratory Rate 20 12/24/2013 2:02 PM EST Oxygen Saturation 98% 12/24/2013 2:02 PM EST Inhaled Oxygen Concentration - - Weight 101.2 kg (223 lb) 12/24/2013 2:02 PM EST Height 157.5 cm (5' 2) 12/24/2013 2:02 PM EST Body Mass Index 40.79 12/24/2013 2:02 PM EST documented in this encounter Progress Notes * Nicko Larson MD - 12/24/2013 2:45 PM EST PULMONARY MEDICINE CONSULTATION Consulted by BERNADETTE CHILDS MD to evaluate this patient for dyspnea. I have personally interviewed and examined the patient on12/24/2013, and reviewed the patient's radiographic studies and laboratory data. HPI: In brief, Teresita Beltre is a 48 y.o. female with a chief complaint of FIGUEREDO, started with pain, dyspnea, after an episode of influenza, and states she has been dyspneic ever since. Discovered tohave ?pericarditis and +/- constrictive pericarditis. Had PAS of 35 pre-pericardectomy, and 23 post. Never any RV dysfunction. Had liver biopsy showing cirrhosis and venous congestion. No fatty lover. No EtOH. Weighs 221, and was about that weight prior to problems beginning. She is also presently complaining of lymphedema, which appears to be bothering her on the left side of her body (she claims it is most noticeable in her left breast), and she has been placed on furosemide and spironolactone. No constitutional symptoms, joint pains skin rash. No occupational/environmental exposure. She is a former smoker. PAST MEDICAL HISTORY: Patient Active Problem List Diagnosis Code ??? Abdominal pain, RUQ (right upper quadrant) 789.01 ??? Abnormal LFTs (liver function tests) 790.6 ??? Ascites 789.59 ??? Possible Constrictive pericarditis 423.2 ??? Chronic right-sided heart failure 428.0 ??? Cardiac cirrhosis 571.5 ??? SOB (shortness of breath) 786.05 ??? Chest pain 786.50 ??? Fever 780.60 ??? HCAP (healthcare-associated pneumonia) 486 ??? Chronic diastolic congestive heart failure 428.32, 428.0 ??? Pain in left arm 719.41 Past Surgical History Procedure Date ??? Colonoscopy ??? Upper gastrointestinal endoscopy ??? Lap, cholecystectomy/graph 02/19/2013 LAPAROSCOPIC CHOLECYSTECTOMY WITH CHOLANGIOGRAM performed by Octaviano Torrez MD at [facility] OR ??? Unlisted laparoscopic proc, liver 02/19/2013 LAPAROSCOPIC LIVER BIOPSY performed by Octaviano Torrez MD at [facility] OR ??? Cholecystectomy MEDICATIONS: Outpatient Prescriptions Marked as Taking for the 12/24/13 encounter (Office Visit) with Nicko Larson MD Medication Sig Dispense Refill ??? LORazepam (ATIVAN) 0.5 mg Tablet Take [...] insulin glargine (LANTUS SOLOSTAR) pen injection Inject 15 Units subcutaneously nightly. ??? spironolactone (ALDACTONE) 100 mg tablet Take 100 mg by mouth 2 times daily. ??? metoprolol succinate (TOPROL-XL) 25 mg 24 hr tablet Take 1 tablet by mouth daily. 30 tablet 12 ??? pantoprazole (PROTONIX) 40 mg tablet Take 20 mg by mouth daily. ??? traZODone (DESYREL) 100 mg tablet Take 100 mg by mouth nightly. ALLERGIES: Latex; Scopolamine; Adhesive bandage; Amoxicillin trihydrate; Penicillins; and Sulfa (sulfonamide antibiotics) FAMILY HISTORY: Family History Problem Relation Age of Onset ??? Type 1 Diabetes ??? Autoimmune Disorder ??? Heart Disease Mother ??? Cerebrovasular Accident Mother 64 ??? Diabetes Mother ??? Diabetes Sister ??? Arthritis Sister ??? Arthritis Brother ??? Diabetes Brother ??? Arthritis Brother ??? Diabetes Brother ??? Diabetes Brother SOCIAL HISTORY: History Social History ??? Marital Status: Spouse [...] History Narrative ??? 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. REVIEW OF SYSTEMS: Headaches Vertigo Tinnitus Sinus pressure Hearing loss Thrush Hoarseness Post-nasal drip Hemoptysis Wheezing Pleuritic pain Increased cough Nocturnal cough x Dyspnea Congestion Expectorating Fever Sweating Anorexia x Absenteeism Weight loss Fatigue Emesis Abdominal discomfort Constipation Steatorrhea Diarrhea GERD Rash x Myalgias x Arthralgias x Extremity edema Insomnia Depression Anxiety Poor sleep habits (x) The ROS was otherwise negative. PHYSICAL EXAM Last value Range last 24 hrs Temperature Heart Rate Heart Rate: 83 Heart Rate: [83] Blood Pressure BP: 126/87 mmHg BP: (126)/(87) Respiratory Rate Resp: 20 Resp: [20] SpO2 SpO2: 98 % SpO2: [98 %] WDWN 48 y.o. female in NAD. HEENT-NC/AT; unremarkable Neck-supple without masses or, nodes Chest-clear bilaterally Heart-Normal rate and rhythm, without murmers, gallops, or rubs. Abdomen-benign without organomegaly or tenderness Extremities-no cyanosis, clubbing; trace 1+ lower extremity edema, left greater than right Skin-no rashes or lesions Musculoskeletal-no joint swelling, tenderness, redness or deformities Neurologic-Nonfocal, without weakness or sensory deficits Lymphatics-unremarkable I have personally reviewed the PFTs, and my interpretation is as follows: Vital capacity was reduced at 2.12 L or 63% predicted, with an FEV1 of 1.64 L and an FEV1/FVC ratio of 77%. Her diffusing capacity is reduced at 67% of predicted. Total lung capacity is reduced at 58% of predicted, with a residual volume that is similarly diminished at 45%. The studies are indicative of a mild to moderate restriction. Expiratory and expiratory mouth pressures were performed and they were unremarkable. I walked her around the hospital for considerable distance and neither did her pulse rate get higher than about 110, nor her O2 sat below about 92%. She was significantly short of breath. I have personally reviewed the radiographic studies and my interpretation is as follows: No significant parenchymal abnormalities. IMPRESSION: In summary, this is a 48 y.o. female with FIGUEREDO of unknown etiology, and a very difficultset of circumstances and history, which I cannot put together into any unifying hypothesis. I did difficult to understand why she would have a congestive hepatopathy with cirrhosis, and she never hadright heart her or even a pulmonary artery systolic pressure of greater than 35 (prior to her pericardial stripping). In either case I don't see how this be contributing to her current clinical situation, except for the remote possibility that she has developed AV malformations (but I could not gether to desaturate at all). Her inspiratory and expiratory mouth pressures are fine, so the only reason I can come up with to explain her restriction is her weight, though I will check diaphragmatic fluoroscopy on the off chance that phrenic nerve injury occurred during the pericardial procedure. I discussed with the patient and her at considerable length the fact that the entire cascade of events that led her to me today make little sense, and I am at a loss to explain why she is dyspneic on exertion (other than extreme deconditioning, which I elected not to pursue with her on this visit). I will prevent for full cardiopulmonary exercise test as well as a diaphragmatic fluoroscopy, and my guess is that the diaphragm to work fine, and that she is limited by her anaerobic threshold,suggesting either a strange and unusual neuromuscular process or extreme deconditioning, the likelyexplanation. Followup after these studies. Greater than 60 min of this 80 minute visit was spent in face to face discussion with the patient and regarding the nature and complexity of the problems described above, and the details of our diagnostic and therapeutic plans. documented in this encounter Plan of Treatment Upcoming Encounters Date Type Department Care Team (Late st Contact Info) Description 09/14/2023 11:00 AM EDT Office [place] [address] [facility] [place] [address] documented as of this encounter Results * [...] (shortness of breath)- Primary Shortness of breath SOB (shortness of breath)- Primary Shortness of breath documented in this encounter Care Teams Sales Coordinator Relationship Specialty Start Date End Date Bernadette Childs MD [address] [facility] [place] [address] PCP - General 04/03/12 07/27/20 documented as of this encounter
--- OUTSIDE RECORDS SUMMARY | 2023-09-06 01:40 | XMS_ITS | Encounter Summary ---
Author Organization [facility] Address [facility] [place] [address] Care Team Providers Care Firearms Inspector Name Role Phone Bernadette Childs MD Primary Care Provider Encounter Details Date Type Department Care Team (Late st Contact Info) Description 06/18/2015 9:26 AM EDT - 06/18/2015 11:59 PM EDT Hospital Encounter Non-Invasive [place] [address] Cornelius Sullivan II, MD [facility] [place] [address] Constrictive pericarditis Discharge Disposition: Home Social History [...] Sig Dispensed Refills Start Date End Date spironolactone (ALDACTONE) 100 mg TabletIndications:On potassium sparing [...] 11:00 AM EDT Office [place] [address] Mague Johnson MD [facility] [place] [address] documented as of this encounter Procedures Procedure Name Priority Date/Time Associated Diagnosis Comments ECHO COMPLETE Routine 06/18/2015 12:00 PM EDT Constrictive pericarditis documented in this encounter Results * ECHO COMPLETE (06/18/2015 12:00 PM EDT) EF 70 HEARTDBL Acquisition SYSTEM Anatomical Region Laterality Modality Other 06/18/2015 Narrative 06/18/2015 1:58 PM EDT Procedure: ?Transthoracic Echocardiogram Patient: ?RUBA Ovalle ? (Age): 1965(50y) Med Rec#: ? [id number] ?Sex: ?F ? Site Loc: ? [facility] ?Ht / Wt: ??157(cm)/103.01( Pt. Loc: ?Echo Lab ?BSA: ?2.01 Study Date: ?? 06/18/2015 ?Pt. Type: Outpatient Tape: ? 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 101/55 SUMMARY: 1. The left ventricular chamber size is normal. Left ventricular wall thickness is normal. There is normal global left ventricular systolic function. The quantitative left ventricular ejection fraction by biplane Aguilar's method is 75%. There are no left ventricular segmental wall motion abnormalities. 2. The right ventricle is normal in size. Right ventricular global systolic function is mildly reduced. The estimated pulmonary artery systolic pressure is 35 mmHg. 3. There is mild to moderate (1-2+/4+) tricuspid regurgitation present. 4. Septal bounce is present with no significant respiratory variation in mitral inflow or other significant evidence of constrictive physiology. See remainder of report for additional findings. Findings ? : Left Ventricle: ? The left ventricular chamber size is normal. ?Left ventricular wall thickness is normal. ?There is normal global left ventricular systolic function. ?The quantitative left ventricular ejection fraction by biplane Aguilar's method is 75%. ?There are no left ventricular segmental wall motion abnormalities. ?The left ventricular diastolic filling pattern is consistent with impaired LV relaxation. ?Doppler assessment is consistent with normal left sided filling pressure. Left Atrium: ? The left atrium is normal in size.19 ml/m2 Right Ventricle: ? The right ventricle is normal in size. ?Right ventricular wall thickness is normal. ?Right ventricular global systolic function is mildly reduced. ?The estimated pulmonary artery systolic pressure is 35 mmHg. Right Atrium: ? The right atrium appears normal. Aortic Valve: ? The aortic valve is trileaflet. The leaflets are thin with normal excursion. There is no aortic stenosis or regurgitation present. Mitral Valve: ? The mitral valve leaflets are mildly thickened. ?There is trace mitral regurgitation present. Tricuspid Valve: ? The tricuspid valve leaflets are morphologically normal. ?There is mild to moderate (1-2+/4+) tricuspid regurgitation present. Pulmonic Valve: ? The pulmonic valve appears normal in structure and function. ?There is trace pulmonic regurgitation present. Pericardium: ? There is no pericardial effusion. Aorta: ? The aortic root is normal in size. ?The ascending aorta is normal in size. Pulmonary Artery: ? The main pulmonary artery appears normal. Venous: ? The inferior vena cava appears normal in size. ?There is a greater than 50% respiratory change in the inferior vena cava dimension. Misc: ? See remainder of report for additional findings. ?Two-dimensional echo, spectral Doppler and color Doppler performed. Chambers 2D ?Value ?Units (Range) ? IVSd (2D) ? 1.2 ?cm ? LVPWd (2D) ?1.1 ?cm ? IVS:LVPW ratio (2D) 1.1 ?ratio ? LVIDd (2D) ?3.1 ?cm ? LVIDs (2D) ?2.3 ?cm ? LVIDd (2D) index ?1.5 ?cm/m2 ? LVIDs (2D) index ?1.1 ?cm/m2 ? LV FS (2D) ?26 ? % ? EF Teichholz (2D) ?? 52 ? % ? Ao root diameter (2D2.4 ?cm (2.1 - 3.6) ? Ascending Ao ?2.3 ?cm (2 - 3.5) ? Volumes/Mass ?Value ?Units (Range) ? LA Area 4 CH ?18 ? cm2 (<21) ? RA AREA 4CH ? 13 ? cm2 ? LA ESV SP 4CH (MOD) 46.6 ? ml ? LA ESV SP 2CH (MOD) 30.2 ? ml ? LA ESV BP (MOD) ? 38.3 ? ml ? LA ESV BP (MOD) inde19.1 ? ml/m2 ? LV ESV SP 4CH (MOD) 13.8 ? ml ? LV ESV SP 2CH (MOD) 9.8 ?ml ? LV EDV BP ? 50.7 ? ml ? LV ESV BP ? 12.6 ? ml ? BP EF (MOD) ? 75 ? % ? LV mass (2D) ?99.7 ? g ? LV mass (2D) index ??49.6 ? g/m2 ? Diastolic/Systolic Function ?Value ?Units (Range) ? MV E-wave Vmax ?1 ?m/sec ? MV deceleration [id number] ?msec ? MV A-wave Vmax ?0.7 ?m/sec ? MV E:A ratio ?1.5 ?ratio ? LV E:e' septal ratio13.6 ? ratio ? LV E:e' lateral rati12.1 ? ratio ? Tricuspid Valve ?Value ?Units (Range) ? TR Vmax ? 2.8 ?m/sec ? TR peak gradient ?31.8 ? mmHg ? RAP ? 3 ?mmHg ? RVSP ?35 ? mmHg ? Measurement Trending Name ? 06/18/2015 ? LV EDV BP ?50.7 LVIDd (2D) ? 3.07 LV ESV BP ?12.6 LA ESV BP (MOD) ?38.3 LVIDs (2D) ? 2.28 Wall Motion: Segment Name ?Rest ? Base-Anteroseptal ?? Normal ? Base-Anterior ? Normal ? Base-Anterolateral ??Normal ? Base-Posterolateral Normal ? Base-Inferior ? Normal ? Base-Inferoseptal ?? Normal ? Mid-Anteroseptal ?Normal ? Mid-Anterior ?Normal ? Mid-Anterolateral ?? Normal ? Mid-Posterolateral ??Normal ? Mid-Inferior ?Normal ? Mid-Inferoseptal ?Normal ? Rowley-Septal ? Normal ? Rowley-Anterior ? Normal ? Rowley-Lateral ?Normal ? Rowley-Inferior ? Normal ? Rowley-Tip ?Normal ? This report has been electronically signed by: Hadley ??D. MD Yadiel ? 06/18/2015 13:58:09 Images reviewed and interpretation verified [facility] Procedure Note Hadley Cotto MD - 06/18/2015 Procedure: Transthoracic Echocardiogram Patient: RUBA Ovalle DOB(Age): 1965(50y) Med Rec#: [id number] Sex: F [place] Loc: [facility] Ht / Wt: 157(cm)/103.01( Pt. Loc: Echo Lab BSA: 2.01 Study Date: 06/18/2015 Pt. 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 The left ventricular chamber size is normal. Left ventricular wall thickness is normal. There is normal global left ventricular systolic function. The quantitative left ventricular ejection fraction by biplane Aguilar's method is 75%. There are no left ventricular segmental wall motion abnormalities. 2. The right ventricle is normal in size. Right ventricular global systolic function is mildly reduced. The estimated pulmonary artery systolic pressure is 35 mmHg. 3. There is mild to moderate (1-2+/4+) tricuspid regurgitation present. 4. Septal bounce is present with no significant respiratory variation in mitral inflow or other significant evidence of constrictive physiology. See remainder of report for additional findings. Findings : Left Ventricle: The left ventricular chamber size is normal. Left ventricular wall thickness is normal. There is normal global left ventricular systolic function. The quantitative left ventricular ejection fraction by biplane Aguilar's method is 75%. There are no left ventricular segmental wall motion abnormalities. The left ventricular diastolic filling pattern is consistent with impaired LV relaxation. Doppler assessment is consistent with normal left sided filling pressure. Left Atrium: The left atrium is normal in size.19 ml/m2 Right Ventricle: The right ventricle is normal in size. Right ventricular wall thickness is normal. Right ventricular global systolic function is mildly reduced. The estimated pulmonary artery systolic pressure is 35 mmHg. Right Atrium: The right atrium appears normal. Aortic Valve: The aortic valve is trileaflet. The leaflets are thin with normal excursion. There is no aortic stenosis or regurgitation present. Mitral Valve: The mitral valve leaflets are mildly thickened. There is trace mitral regurgitation present. Tricuspid Valve: The tricuspid valve leaflets are morphologically normal. There is mild to moderate (1-2+/4+) tricuspid regurgitation present. Pulmonic Valve: The pulmonic valve appears normal in structure and function. There is trace pulmonic regurgitation present. Pericardium: There is no pericardial effusion. Aorta: The aortic root is normal in size. The ascending aorta is normal in size. Pulmonary Artery: The main pulmonary artery appears normal. Venous: The inferior vena cava appears normal in size. There is a greater than 50% respiratory change in the inferior vena cava dimension. Misc: See remainder of report for additional findings. Two-dimensional echo, spectral Doppler and color Doppler performed. Chambers 2D Value Units (Range) IVSd (2D) 1.2 cm LVPWd (2D) 1.1 cm IVS:LVPW ratio (2D) 1.1 ratio LVIDd (2D) 3.1 cm LVIDs (2D) 2.3 cm LVIDd (2D) index 1.5 cm/m2 LVIDs (2D) index 1.1 cm/m2 LV FS (2D) 26 % EF Teichholz (2D) 52 % Ao root diameter (2D2.4 cm (2.1 - 3.6) Ascending Ao 2.3 cm (2 - 3.5) Volumes/Mass Value Units (Range) LA Area 4 CH 18 cm2 (<21) RA AREA 4CH 13 cm2 LA ESV SP 4CH (MOD) 46.6 ml LA ESV SP 2CH (MOD) 30.2 ml LA ESV BP (MOD) 38.3 ml LA ESV BP (MOD) inde19.1 ml/m2 LV ESV SP 4CH (MOD) 13.8 ml LV ESV SP 2CH (MOD) 9.8 ml LV EDV BP 50.7 ml LV ESV BP 12.6 ml BP EF (MOD) 75 % LV mass (2D) 99.7 g LV mass (2D) index 49.6 g/m2 Diastolic/Systolic Function Value Units (Range) MV E-wave Vmax 1 m/sec MV deceleration [id number] msec MV A-wave Vmax 0.7 m/sec MV E:A ratio 1.5 ratio LV E:e' septal ratio13.6 ratio LV E:e' lateral rati12.1 ratio Tricuspid Valve Value Units (Range) TR Vmax 2.8 m/sec TR peak gradient 31.8 mmHg RAP 3 mmHg RVSP 35 mmHg Measurement Trending Name 06/18/2015 LV EDV BP 50.7 LVIDd (2D) 3.07 LV ESV BP 12.6 LA ESV BP (MOD) 38.3 LVIDs (2D) 2.28 Wall Motion: Segment Name Rest Base-Anteroseptal Normal Base-Anterior Normal Base-Anterolateral Normal Base-Posterolateral Normal Base-Inferior Normal Base-Inferoseptal Normal Mid-Anteroseptal Normal Mid-Anterior Normal Mid-Anterolateral Normal Mid-Posterolateral Normal Mid-Inferior Normal Mid-Inferoseptal Normal Rowley-Septal Normal Rowley-Anterior Normal Rowley-Lateral Normal Rowley-Inferior Normal Rowley-Tip Normal This report has been electronically signed by: Hadely Cotto MD 06/18/2015 13:58:09 Images reviewed and interpretation verified [facility] Cornelius Sullivan II, MD ECHO ORDERABLES documented in this encounter Visit Diagnoses Diagnosis Constrictive pericarditis documented in this encounter Care Teams Firearms Inspector Relationship Specialty Start Date End Date Bernadette Childs MD [address] [place] [address] PCP - General 04/03/12 07/27/20 documented as of this encounter
--- OUTSIDE RECORDS SUMMARY | 2023-09-06 01:40 | XMS_ITS | Encounter Summary ---
Author Organization [facility] Address [facility] [facility] [place] [address] Care Team Providers Care Energy Professional Name Role Phone Bernadette Childs MD Primary Care Provider [phone] Reason for Visit * Reason Comments Follow-up Encounter Details Date Type Department Care Team (Late st Contact Info) Description 02/05/2014 9:45 AM EST Follow-[place] [address] Neena Tavares MD [facility] [place] [address] FIGUEREDO (dyspnea on exertion) Discharge Disposition: Home Social History Tobacco Use [...] Sign Reading Time Taken Comments Blood Pressure 97/67 02/05/2014 10:36 AM EST Pulse 98 02/05/2014 10:36 AM EST Temperature - - Respiratory Rate 20 02/05/2014 10:36 AM EST Oxygen Saturation 99% 02/05/2014 10:36 AM EST Inhaled Oxygen Concentration - - Weight 104.8 kg (231 lb) 02/05/2014 10:36 AM EST Height - - Body Mass Index 42.25 01/24/2014 11:16 AM EST documented in this encounter Patient Instructions * Patient Instructions* Neena Tavares MD - 02/05/2014 11:18 AM EST -I will send my report to your primary care physician. -please call us back for any questions or concerns. -( ) I will set up a follow up appointment. You will be notified by mail. -(x ) I will see you periodically when you and/or your primary care physician think it is necessary. I will not set up a follow up appointment at this time. documented in this encounter Progress Notes * Neena Tavares MD - 02/04/2014 9:58 AM EST CLINIC Follow up Note Last visit: December, I have personally interviewed and examined the patient, reviewed history, radiographic studies( if any) and laboratory data(if any). Pulmonary Problems: -exertional dyspnea. HPI: This a 48 y.o. female, returned to the clinic to follow up her exertional dyspnea. She was originally seen by Dr. Larson on December 24, 2013. She is a patient of Dr. Sullivan, cardiology. In brief, this is a patient with a history of severe influenza infection, for which she required hospital admission in 2010. It was complicated with pericarditis. She has had long standing exertionaldyspnea ever since. 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 Her respiratory status has gotten better substantially after the surgery, however, she continues to have exertional dyspnea andrecovery has been slow. She is also complaining of lymphedema on the left side of her upper body, most noticeable in her left breast, which has started after surgery and was and wane. She had PFT in November, which demonstrated restrictive ventilatory defect with mildly reduced diffusion. Dr. Larson walked her around the hospital for considerable distance and neither did her pulse rate get higher than about 110, nor her O2 sat below about 92%. She was significantly short of breath, however. She had normal MIP and mildly reduced MEP. Dr. Larson felt that obesity and deconditioning playing roles. He scheduled her for sniff test to rule out diaphragm paralysis, though he didn't think this was the likely possibility. He was also planning to pursue CPEX. She had sniff testing today, which was negative for paradoxical movement. PMHx: Patient Active Problem List Diagnosis Code [...] 428.0 ??? Pain in left arm 719.41 Allergy: Allergies Allergen Reactions ??? Latex Rash ??? Scopolamine Itching and Rash Itching erythematous rash resolved with scop patch removal. ??? Adhesive Bandage Localized Reaction ??? Amoxicillin Trihydrate Rash ??? Penicillins Rash ??? Sulfa (Sulfonamide Antibiotics) Rash Medications: Outpatient Prescriptions Marked as Taking for the 02/05/14 encounter (Follow-Up) with Neena Tavares MD Medication Sig Dispense Refill ??? insulin glargine (LANTUS SOLOSTAR) Insulin Pen Inject 20 Units subcutaneously nightly. ??? spironolactone (ALDACTONE) 100 mg Tablet Take 100 mg by mouth daily. ??? LORazepam (ATIVAN) 0.5 mg Tablet Take [...] Take 20 mg by mouth daily. ??? pantoprazole (PROTONIX) 40 mg tablet Take 20 mg by mouth daily. ??? traZODone (DESYREL) 100 mg tablet Take 100 mg by mouth nightly. No Facility-Administered Medications for the 02/05/14 encounter (Follow-Up) with Neena Tavares MD. ROS:X = Yes [ ] Shortness of breath [ ] Frequent or chronic cough [ ] Coughing up blood [ ] Nose, sinus, mouth, throat problems [ ] Fevers or severe chills [ ] Night sweats [ ] Enlarged or swollen lymph glands [ ] Skin disease or rash [ ] Easy bruising or bleeding [ ] Significant joint pains or stiffness [ ] Changes in bowel habits [ ] Changes in appetite [ ] Abdominal pain or bloating [ ] Weight gain or loss [ ] Chest pain [ ] Palpitations or flutter [ ] Swelling of hands feet ankles [ ] Convulsions or seizures [ ] Frequent or severe headache [ ] Fainting or loss of consciousness [ ] Extreme fatigue or weakness [ ] Depression [ ] Changes in sleep pattern [ ] other: Vitals and Physical Exam: BP 97/67 Pulse 98 Resp 20 Wt 104.781 kg (231 lb) SpO2 99% Gen: HEENT: PERRL, EOMI, Moist oral mucosal membrane wto lesions , eyes wto injection or exudates. No stridor Nodes: No cervical, supraclavicular LAP. Chest: CTA without wheezing/rhonchi/crackles Symmetric excursion. Cor: RRR, S1S2, No MRG. Abd: S/ND/NT Extrem: no C/C/E. Neuro: no focal deficits Diagnostic studies: -CXR: -CT: 12/25/2013 OSH ( to my eyes), no parenchymal lung disease. Plate/linear atelectasis in b/l lungs. PFTs date FVC FEV1 FEV/FVC VC TLC RV RV/TLC DsbHb SpO2 MIP/MEP 11/27/2013 63 61 1.63 77.4 64 58 2.89 45 78 67 15.02 93 RA ## 12/25/2013 121/73 ## reportedly no ambulatory desat ( see Dr. Larson's note on 12/24/2013 ) -ECHO: 08/08/2013 SUMMARY: 1. Status post complete pericardectomy (05/04/13, [facility] [place]) for constrictive pericarditis. 2. The left ventricular [...] sniff test without evidence of diaphragm paralysis. Labs Lab Results Component Value Date WBC 9.4 05/28/2013 RBC 5.31* 05/28/2013 HGB 14.5 05/28/2013 HCT 42.9 05/28/2013 MCV 80.8 05/28/2013 MCH 27.3 05/28/2013 MCHC 33.8 05/28/2013 PLATELET 403* 05/28/2013 RDWCV 17.6* 05/28/2013 Summary: -Exertional dyspnea. -plates like/ linear atelectasis Impression/recommendation: I don't have an unifying diagnosis. However, I think all of ( probably) impaired lung/thoracic compliance after thoracic surgery, obesity and deconditioning are contributing to poor lung expansion and focal b/l atelectasis and exertional dyspnea. Because there is no evidence for respiratory [...] some changes by CT, which I don't. SLE could cause a condition called shrinking lung which could fit the picture, however she does not have symptoms for SLE. She had apparently negative NADER ( this does not preclude SLE completely but makes it unlikely). Pericarditis was associated with flu infection and cirrhosis was cardiac, reportedly. Overall this possibility seems unlikely. I have a lengthy discussion with her and her . I suggested watchful observation for several months, while she works on exercise and weight loss and they agreed with the plan. They are not keenat CPET at this time but we can pursue this option as necessary if things do not improve. I have given her respiratory muscle society editor. Advised her to use a couple of times daily to possibleimprove atelectasis. She wants to see how she does and call us back for appointment accordingly. Therefore I did not make a follow up appointment today. The above recommendation was discussed with the patient in detail, then all questions were answered. I advised the patient to call us back for any questions, concerns or changes in the interim. I spent more than 50% of this 60 minute visit in counseling the patient, reviewing charts/records/labs/tests, or discussion with other health care providers. documented in this encounter Plan of Treatment Upcoming Encounters Date Type Department Care Team (Late st Contact Info) Description 09/14/2023 11:00 AM EDT Office Visit [place] [address] Mague Johnson MD [facility] [place] [address] documented as of this encounter Visit Diagnoses Diagnosis FIGUEREDO (dyspnea on exertion) Other dyspnea and respiratory abnormality documented in this encounter Care Teams Energy Professional Relationship Specialty Start Date End Date Bernadette Childs MD [address] [place] [address] PCP - General 04/03/12 07/27/20 documented as of this encounter
--- OUTSIDE RECORDS SUMMARY | 2023-09-06 01:40 | XMS_ITS | Encounter Summary ---
Author Organization [facility] Address [facility] [place] [address] Care Team Providers Care Door Repairer Bus Name Role Phone Bernadette Childs MD Primary Care Provider [phone] Encounter Details Date Type Department Care Team (Late st Contact Info) Description 09/11/2013 Orders [place] [address] Juancho Miguel MD [facility] [place] [address] Pain in left shoulder (Primary Dx) Social History Tobacco Use Types Packs/Day Years [...] 11:00 AM EDT Office [place] [address] Mague Johnson MD [facility] [place] [address] documented as of this encounter Results * XR shoulder (10/02/2013 12:45 PM EDT) Anatomical Region Laterality Modality Shoulder N/A Radiographic Beatrice ging 10/02/2013 12:4 5 PM EDT Narrative 10/02/2013 2:48 PM EDT Examination SHOULDER MINIMUM TWO VIEWS/LEFT Clinical History L SHOULDER PAIN S/P OPEN HEART SURGERY Comparison None available. ?? Technique Internal rotation, Grashey, transscapular Y, and axillary views of the left shoulder are submitted. ?? Findings Alignment is normal. There is no acute fracture or dislocation. The left glenohumeral and acromioclavicular joint spaces are normal. A tiny calcific focus projecting near the greater tuberosity of the left humerus on the internal rotation view may represent small area of capsular tendonitis in the setting of possible underlying rotator cuff arthropathy. In the visualized portions of the left lung, linear opacities in the left lung base are most consistent with subsegmental atelectasis. ??Median sternotomy wires are in place. ?? Impression No acute fracture or dislocation involving the bones of the left shoulder girdle. Procedure Note Head, Juancho Mccann MD - 10/02/2013 Examination SHOULDER MINIMUM TWO VIEWS/LEFT Clinical History L SHOULDER PAIN S/P OPEN HEART SURGERY Comparison None available. Technique Internal rotation, Grashey, transscapular Y, and axillary views of theleft shoulder are submitted. Findings Alignment is normal. There is no acute fracture or dislocation. The left glenohumeral and acromioclavicular joint spaces are normal. A tinycalcific focus projecting near the greater tuberosity of the left humerus on the internal rotation view may represent small area of capsular tendonitis inthe setting of possible underlying rotator cuff arthropathy. In the visualized portions of the left lung, linear opacities in the left lung base are most consistent with subsegmental atelectasis. Median sternotomy wires are in place. Impression No acute fracture or dislocation involving the bones of the left shouldergirdle. Juancho Miguel MD IMG DX ORDERABLES documented in this encounter Visit Diagnoses Diagnosis Pain in left shoulder- Primary Pain in joint, shoulder region Pain in left shoulder Pain in joint, shoulder region documented in this encounter Care Teams Door Repairer Bus Relationship Specialty Start Date End Date Bernadette Childs MD [address] [place] [address] PCP - General 04/03/12 07/27/20 documented as of this encounter
--- OUTSIDE RECORDS SUMMARY | 2023-09-06 01:40 | XMS_ITS | Encounter Summary ---
Author Organization [facility] Address [facility] [place] [address] Care Team Providers Care Psychological Assistant Name Role Phone Bernadette Childs MD Primary Care Provider [phone] Encounter Details Date Type Department Care Team (Late st Contact Info) Description 08/08/2013 2:10 PM EDT Follow-Up Cardiology at [address] [address] Edelmira Sullivan II, MD [facility] [place] [address] Constrictive pericarditis (Primary Dx); Tachycardia, unspecified Discharge Disposition: Home Social History [...] Sign Reading Time Taken Comments Blood Pressure 110/84 08/08/2013 2:09 PM EDT Pulse 97 08/08/2013 2:09 PM EDT Temperature - - Respiratory Rate - - Oxygen Saturation 95% 08/08/2013 2:09 PM EDT Inhaled Oxygen Concentration - - Weight 91.6 kg (202 lb) 08/08/2013 2:09 PM EDT Height 157.5 cm (5' 2) 08/08/2013 2:09 PM EDT Body Mass Index 36.95 08/08/2013 2:09 PM EDT documented in this encounter Progress Notes * Edelmira Sullivan II - 08/09/2013 5:36 PM EDT Patient Name: Teresita Beltre : 1965 Age: 48 y.o. Date of Visit: 08-08-2013 Primary Care Physician: BERNADETTE CHILDS MD Problem List: Patient Active Problem List Diagnosis ??? Chronic diastolic congestive heart failure ??? SOB (shortness of breath) ??? Chest pain ??? Fever ??? HCAP (healthcare-associated pneumonia) ??? Chronic right-sided heart failure ??? Cardiac cirrhosis ??? 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 Ascites ??? Abdominal pain, RUQ (right upper quadrant) ??? Abnormal LFTs (liver function tests) I last saw Mrs. Beltre in May. At that time, she seemed to gradually be improving. At some point between the end of May and the beginning of July, seemingly as the weather changed, she developed worsening shortness of breath and signs of fluid retention. She was seen by her PCP on August 02, and her weight was noted to be up nine pounds. At that time, both her Lasix and spironolactone were increased. She subsequently had a CT scan which showed multiple areas of atelectasis as well as a fatty liver. A chest x-ray also showed apparent scarring or atelectasis involving the lung bases. Since then, her symptoms have improved slightly with the diuretic therapy. She still feels as though her br eathing is limited particularly on the left side. Unfortunately, she discarded her incentive spirometer last month before her most recent problems began. She has been referred to PT and will also be getting some cardiac rehab locally. Current Medications: Current Outpatient Rx Name Route Sig Dispense Refill ??? FUROSEMIDE 20 MG TABLET Oral Take 20 mg by mouth 2 times daily. ??? INSULIN GLARGINE 100 UNIT/ML (3 ML) SUBCUTANEOUS PEN Subcutaneous Inject 10 Units subcutaneously nightly. ??? SPIRONOLACTONE 100 MG TABLET Oral Take 100 mg by mouth daily. ??? SPIRONOLACTONE 50 MG TABLET Oral Take 50 mg by mouth daily. ??? METOPROLOL SUCCINATE ER 25 MG TABLET,EXTENDED RELEASE 24 HR Oral Take 1 tablet by mouth daily. 30 tablet 12 ??? ALBUTEROL SULFATE 2.5 MG/3 ML (0.083 %) SOLUTION FOR NEBULIZATION Nebulization Take 2.5 mg by nebulization 3 times daily. ??? HYDROMORPHONE 4 MG TABLET Oral Take 1 tablet by mouth every 4 hours as needed for Pain. 20 tablet 0 ??? LORAZEPAM 1 MG TABLET 1-2 tablets at bedtime 60 tablet 3 ??? PANTOPRAZOLE 40 MG TABLET,DELAYED RELEASE Oral Take 20 mg by mouth daily. ??? TRAZODONE 100 MG TABLET Oral Take 100 mg by mouth nightly. On physical exam, heart rate is 88 and regular. Blood pressure is 110/84. Chest is clear to auscultation. Cardiac exam reveals normal S1 and S2. No rub, murmur, or gallop is appreciated. Carotid upstrokes are brisk. There are no carotid bruits. Jugular venous pressure is not elevated. Abdominal exam is benign without organomegaly, masses, or tenderness. Examination of the extremities reveals no edema. Assessment: Agobw-uhepi-pvzs-old female with constrictive pericarditis who is now status post pericardial stripping three months ago. She seemed to be doing well but over the last six weeks, she seems to have retained some fluid and developed more dyspnea. Her evaluation shows evidence of pulmonaryatelectasis. She has not had a repeat echo. It is hard to know whether or not her current problems are indeed related to fluid retention, to persistent constriction, or to the lingering effects of a thoracotomy. At this point, I would like to continue with the diuretics particularly since she has already had some benefit. We will get an echoto evaluate any residual constrictive physiology. I will give her an incentive spirometer to continue working on her lungs, and consider referring her to pulmonary rehab if she does not improve. Plan: 1. Echocardiogram hopefully today. 2. Otherwise continue current medications. 3. Follow-up in this clinic in three months. Twenty minutes of this 30 minute visit was spent in face to face consultation with the patient. Communication sent to Bernadette Childs M.D. documented in this encounter Plan of Treatment Upcoming Encounters Date Type Department Care Team (Late st Contact Info) Description 09/14/2023 11:00 AM EDT Office [place] [address] Mague Johnson MD [facility] [place] [address] documented as of this encounter Results * Echocardiogram Transthoracic(Leb) (08/08/2013 4:15 PM EDT) EF 60 HEARTLAB SYSTEM Anatomical Region Laterality Modality Other 08/08/2013 Narrative 08/08/2013 4:38 PM EDT Procedure: ? Transthoracic Echocardiogram Patient: ? RUBA TAVAREZA ?(Age): 1965(48) Med Rec#: ?[id number] ? Sex: ?F ? [place] [place] Ht / Wt: ??157.5(cm)/91(kg Pt. Loc: ? Echo Lab ? BSA: ?1.91 Study Date: ?08/08/2013 ? Pt. Type: Outpatient Tape: ? Referring: Edelmira Sullivan Referring: EDELMIRA SULLIVAN II, W Supervisor [employer] Reservations: Amalia Musa Diagnosis: ??Constrictive pericarditis (423.2) CPT Code(s): ??Echo Full (23672), ??Spectral Doppler (60579), ??Color Doppler (97208), Indication(s):Rhythm: HR ?BP ?110/84 ?? SUMMARY: 1. Status post complete pericardectomy (05/04/13, [facility]) for constrictive pericarditis. 2. The left ventricular [...] ? Mid-Inferior ?Normal ? Mid-Inferoseptal ?Normal ? [place]-Septal ? Normal ? [place]-Anterior ? Normal ? [place]-Lateral ?Normal ? [place]-Inferior ? Normal ? [place]-Tip ?Normal ? Chambers ?Value ?Units (Range) ? [...] 08/08/2013 16:37:53 Images reviewed and interpretation verified [facility] Cardiac Ultrasound Laboratory Procedure Note iDllon Banks MD - 08/08/2013 Procedure: Transthoracic Echocardiogram Patient: RUBA FRANCISCO(Age): 1965(48) Med Rec#: [id number] Sex: F [place] [facility] Ht / Wt: 157.5(cm)/91(kg Pt. Loc: Echo Lab BSA: 1.91 Study Date: 08/08/2013 Pt. Type: Outpatient Tape: Referring: Edelmira Sullivan Referring: EDELMIRA SULLIVAN II, W Supervisor [employer] Reservations: Amalia Musa Diagnosis: Constrictive pericarditis (423.2) CPT Code(s): Echo Full (86686), Spectral Doppler (52691), Color Doppler (01396), Indication(s):Rhythm: HR BP 110/84 SUMMARY: 1. Status post complete pericardectomy (05/04/13, [facility]) for constrictive pericarditis. 2. The left ventricular [...] Normal Mid-Posterolateral Normal Mid-Inferior Normal Mid-Inferoseptal Normal [place]-Septal Normal [place]-Anterior Normal [place]-Lateral Normal [place]-Inferior Normal [place]-Tip Normal Chambers Value Units (Range) IVSd MM [...] 08/08/2013 16:37:53 Images reviewed and interpretation verified [facility] Cardiac Ultrasound Laboratory Edelmira Sullivan II, MD ECHO ORDERABLES documented in this encounter Visit Diagnoses Diagnosis Constrictive pericarditis- Primary Tachycardia, unspecified Constrictive pericarditis documented in this encounter Care Teams Psychological Assistant Relationship Specialty Start Date End Date Bernadette Childs MD [address] [place] [address] PCP - General 04/03/12 07/27/20 documented as of this encounter
--- OUTSIDE RECORDS SUMMARY | 2023-09-06 01:40 | XMS_ITS | Encounter Summary ---
Author Organization [facility] Address [facility] [place] [address] Care Team Providers Care Manager Personal Name Role Phone Bernadette Childs MD Primary Care Provider [phone] Encounter Details Date Type Department Care Team (Latest Contact Info) Description 10/02/2013 2:22 PM EDT - 10/02/2013 11:59 PM EDT Hospital Encounter XRay at [address] [place] [address] CLINIC, DR DONG Miguel, Juancho Mazariegos MD [facility] [place] [address] Pain in left shoulder Discharge Disposition: Home Social History Tobacco Use [...] Sig Dispensed Refills Start Date End Date FLUoxetine (PROZAC) 40 mg capsule Take 1 [...] mouth daily. 30 tablet 12 08/08/2013 02/05/2014 LORazepam (ATIVAN) 1 mg tabletIndications:Restl ess legs syndrome (RLS) 1-2 tablets at bedtime [...] 11:00 AM EDT Office [place] [address] Mague Johnson MD [facility] [place] [address] documented as of this encounter Procedures Procedure Name Priority Date/Time Associated Diagnosis Comments XR CERVICAL SPINE 2 OR 3 VIEWS Routine 10/02/2013 2:38 PM EDT documented in this encounter Results * XR Cervical Spine 2 or 3 views (10/02/2013 2:38 PM EDT) Anatomical Region Laterality Modality C-spine N/A Radiographic Beatrice ging 10/02/2013 2:38 PM EDT Narrative 10/02/2013 4:11 PM EDT Examination Cervical Spine 2 or 3 Views Clinical History shoulder pain/ radicular symptoms, ap/lat cervical spine Comparison None. None. Technique AP, lateral, and bilateral oblique views of the cervical spine. Findings No subluxation or fracture detected. ??The atlanto dens interval is maintained. ?? The intervertebral disc space heights appear maintained. There are small anterior end-plate osteophytes at C5-C6 and C6-C7 compatible mild disc degenerative change. Slightly limited assessment of neural foraminal narrowing of the upper cervical spine on the right side due to obliquity/positioning. ??There is most minimal neural foraminal narrowing on the left at C3-C4 and C4-C5 and on the right at C4-C5 and possibly C3-C4. Impression No subluxation or fracture. Mild disc degenerative changes at C5-6 and C6-7 with preservation of disc space heights. Minimal neural foraminal narrowing at C3-C4 and C4-C5 given limitations above. Procedure Note Juancho Garay MD - 10/02/2013 Examination Cervical Spine 2 or 3 Views Clinical History shoulder pain/ radicular symptoms, ap/lat cervical spine Comparison None. None. Technique AP, lateral, and bilateral oblique views of the cervical spine. Findings No subluxation or fracture detected. The atlanto dens interval ismaintained. The intervertebral disc space heights appear maintained. There are small anterior end-plate osteophytes at C5-C6 and C6-C7 compatible mild disc degenerative change. Slightly limited assessment of neural foraminal narrowing of the uppercervical spine on the right side due to obliquity/positioning. There is mostminimal neural foraminal narrowing on the left at C3-C4 and C4-C5 and on the rightat C4-C5 and possibly C3-C4. Impression No subluxation or fracture. Mild disc degenerative changes at C5-6 and C6-7 with preservation of discspace heights. Minimal neural foraminal narrowing at C3-C4 and C4-C5 given limitationsabove. Juancho Miguel MD IMG DX ORDERABLES documented in this encounter Visit Diagnoses Diagnosis Pain in left shoulder Pain in joint, shoulder region documented in this encounter Care Teams Manager Personal Relationship Specialty Start Date End Date Bernadette Childs MD [address] [place] [address] PCP - General 04/03/12 07/27/20 documented as of this encounter
--- OUTSIDE RECORDS SUMMARY | 2023-09-06 01:40 | XMS_ITS | Encounter Summary ---
Author Organization [place] [address] Care Team Providers Care Supervisor Ski Production Name Role Phone Bernadette Childs MD Primary Care Provider [phone] Reason for Referral * Consultation (Routine) - Closed Specialty Diagnoses / Procedures Referred By Contac t Referred To Contact Pulmonology Diagnoses SOB (shortness of breath) restrictive lung disease Bernadette Childs MD [address] [place] [address] [facility] Pulmonology [address] [place] [id number] Referral ID Status Reason Start Date Expiration Date V isits Requested Visits Authorized [id number] Closed Consult, Test & Treat 12/02/2013 05/31/2014 1 1 Encounter Details Date Type Department Care Team (Late st Contact Info) Description 12/02/2013 Orders Only Cardiology at [address] [address] Cornelius Sullivan II, MD [facility] [place] [address] SOB (shortness of breath) (Primary Dx) Social History Tobacco Use Types [...] 11:00 AM EDT Office [place] [address] Mague Johnson MD [facility] [place] [address] Scheduled Referrals Name Type Priority Associated Diagnoses Order Schedule Referral to Pulmonology Outpatient Referral Routine SOB (shortness of breath) Ordered: 12/02/2013 documented as of this encounter Visit Diagnoses Diagnosis SOB (shortness of breath)- Primary Shortness of breath documented in this encounter Care Teams Supervisor Ski Production Relationship Specialty Start Date End Date Bernadette Childs MD [address] [place] [address] PCP - General 04/03/12 07/27/20 documented as of this encounter
--- OUTSIDE RECORDS SUMMARY | 2023-09-06 01:40 | XMS_ITS | Encounter Summary ---
Author Organization [facility] [place] [address] Care Team Providers Care Regional Training Manager Name Role Phone Bernadette Childs MD Primary Care Provider Reason for Referral * Rehabilitation (Routine) - Closed Specialty Diagnoses / Procedures Referred By Víctor thomas Referred To Contact Cardiology Diagnoses FIGUEREDO (dyspnea on exertion) Cornelius Sullivan II, MD [facility] [place] [address] [facility] [place] [address] Referral ID Status Reason Start Date Expiration Date V isits Requested Visits Authorized [id number] Closed Consult, Test & Treat 01/24/2014 01/24/2015 1 1 Encounter Details Date Type Department Care Team (Late st Contact Info) Description 01/24/2014 11:10 AM EST Follow-Up Cardiology at [address] [address] Cornelius Sullivan II, MD [facility] [place] [address] FIGUEREDO (dyspnea on exertion) Discharge Disposition: Home [...] Reading Time Taken Comments Blood Pressure 122/80 01/24/2014 11:16 AM EST Pulse 72 01/24/2014 11:16 AM EST regular, radial Temperature - - Respiratory Rate - - Oxygen Saturation 97% 01/24/2014 11: 16 AM EST Inhaled Oxygen Concentration - - Weight 104.8 kg (231 lb) 01/24/2014 11: 16 AM EST Height 157.5 cm (5' 2) 01/24/2014 11:1 6 AM EST Body Mass Index 42.25 01/24/2014 11:16 AM EST documented in this encounter Progress Notes * Cornelius Sullivan II - 01/25/2014 5:41 PM EST Patient Name: Teresita Beltre : 1965 Age: 48 y.o. Date of Visit: 01-24-2014 Primary Care Physician: BERNADETTE CHILDS MD Problem [...] tests) I last saw Mrs. Beltre in October. Since then, she thinks she might be slightly better but still has good days and bad days. She clearly is still functional class-3 with exertional dyspnea at thetop of one flight of stairs. She does not get any chest pain. She denies orthopnea or PND. She was seen by Dr. Larson who felt that she might well be deconditioned. He did not think there was any problem with her lung parenchyma, but she did have a restrictive deficit on her PFTs which he thought could be due to obesity. He had also suggested a diaphragm sniff test. After that appointment, she developed noticeable lymphedema on the left side which was treated with an increase in her diuretic dose (which she only took for four days). She says what really helped the lymphedema was a massage therapist. She did have a CT scan to rule out thrombosis and it was negative, showing only bilateral atelectasis and scaring in the lower bases. 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 Current Medications: Current Outpatient Rx Name Route Sig Dispense Refill ??? insulin glargine (LANTUS SOLOSTAR) Insulin Pen Subcutaneous Inject 20 Units subcutaneously nightly. ??? spironolactone (ALDACTONE) 100 mg Tablet Oral Take 100 mg by mouth daily. ??? LORazepam (ATIVAN) 0.5 mg Tablet Oral Take 0.5 mg by mouth nightly. ??? LORazepam (ATIVAN) 0.5 mg Tablet Oral Take 0.5 mg by mouth every 6 hours as needed. ??? FLUoxetine (PROZAC) 40 mg capsule Oral Take 1 capsule by mouth daily. ??? HYDROmorphone (DILAUDID) 2 mg tablet Oral Take 2 mg by mouth every 4 hours as needed. ??? furosemide (LASIX) 20 mg tablet Oral Take 20 mg by mouth daily. ??? metoprolol succinate (TOPROL-XL) 25 mg 24 hr tablet Oral Take 1 tablet by mouth daily. 30 tablet 12 ??? pantoprazole (PROTONIX) 40 mg tablet Oral Take 20 mg by mouth daily. ??? traZODone (DESYREL) 100 mg tablet Oral Take 100 mg by mouth nightly. On physical exam, heart rate is 72. Blood pressure is 122/80. Chest is clear to auscultation. Cardiac exam reveals normal S1 and S2. No rub, murmur, or gallop is appreciated. Carotid upstrokes are brisk. There are no carotid bruits. Jugular venous pressure cannot be assessed due to body habitus. Abdominal exam reveals obesity without clear organomegaly, masses, or tenderness. Examination of the extremities reveals no edema. Assessment: Orfse-mwzyx-icme-old female who is status post a pericardial stripping for constriction, who has had a very slow recovery from surgery which was about nine months ago. She has persistent exertional dyspnea and has had problems with her left shoulder and left hand. Her PFTs showed a restrictive deficit, and the desk top publisher feels that she is deconditioned. He had suggested a sniff test to assess her diaphragm function, but this was never done. She developed lymphedema on the left side which seems to be under control with just massage therapy and a brief course of an increase in diuretics. Plan: 1. Re-arrange fluoroscopic sniff test. 2. Referral to Pulmonary rehab. 3. Have encouraged continuing with the massage therapy. 4. Follow-up in this clinic in four months. Twenty minutes of this 30 minute visit was spent in face to face consultation with the patient. Communication sent to Bernadette Childs M.D. documented in this encounter Plan of Treatment Upcoming Encounters Date Type Department Care Team (Late st Contact Info) Description 09/14/2023 11:00 AM EDT Office Visit [place] [address] Mague Johnson MD [facility] [place] [address] Scheduled Referrals Name Type Priority Associated Diagnoses Orde r Schedule Referral to Pulmonary Rehab Outpatient Referral Routine FIGUEREDO (dyspnea on exertion) Ordered: 01/24/2014 documented as of this encounter Results * XR Fluoro with films (02/05/2014 9:33 AM EST) Anatomical Region Laterality Modality N/A Radiographic Beatrice ging 02/05/2014 9:33 AM EST Impressions 02/05/2014 12:17 PM EST IMPRESSION: Normal sniff test without evidence of diaphragm paralysis. This report was reviewed by Fidelina Packer at 02/05/2014 12:15 PM Film and interpretation reviewed by the attending Narrative 02/05/2014 12:17 PM EST EXAMINATION: FLUORO W/FILMS CLINICAL HISTORY: diaphragm sniff test to r/o post op paralysis COMPARISON: CT chest on 12/25/2013. TECHNIQUE: With the patient upright, the patient was instructed to inhale, exhale, and sniff while observing each and the diaphragms independently under fluoroscopy. PA chest market manager image was also obtained. FINDINGS: Assistant Credit Manager PA chest radiograph shows streaky opacities at the right lung base, compatible with subsegmental atelectasis. Otherwise, the lungs are clear. No pneumothorax or pleural effusion. Sternotomy changes are noted. Otherwise, the cardiomediastinal contour, andrew, pulmonary vasculature are within normal limits. Both hemidiaphragms demonstrated symmetrical excursion. There was no evidence of diminished or paradoxical movement. Fluoroscopy time: 1.35 minutes Procedure Note Fidelina Packer MD - 02/05/2014 EXAMINATION: FLUORO W/FILMS CLINICAL HISTORY: diaphragm sniff test to r/o post op paralysis COMPARISON: CT chest on 12/25/2013. TECHNIQUE: With the patient upright, the patient was instructed toinhale, exhale, and sniff while observing each and the diaphragms independentlyunder fluoroscopy. PA chest market manager image was also obtained. FINDINGS: Assistant Credit Manager PA chest radiograph shows streaky opacities at the right lungbase, compatible with subsegmental atelectasis. Otherwise, the lungs are clear.No pneumothorax or pleural effusion. Sternotomy changes are noted. Otherwise,the cardiomediastinal contour, andrew, pulmonary vasculature are within normallimits. Both hemidiaphragms demonstrated symmetrical excursion. There was noevidence of diminished or paradoxical movement. Fluoroscopy time: 1.35 minutes IMPRESSION IMPRESSION: Normal sniff test without evidence of diaphragm paralysis. This report was reviewed by Fidelina Packer at 02/05/2014 12:15PM Film and interpretation reviewed by the attending Cornelius Sullivan II, MD IMG FLUORO SALINAS LANDIS documented in this encounter Visit Diagnoses Diagnosis FIGUEREDO (dyspnea on exertion) Other dyspnea and respiratory abnormality FIGUEREDO (dyspnea on exertion) Other dyspnea and respiratory abnormality documented in this encounter Care Teams Regional Training Manager Relationship Specialty Start Date End Date Bernadette Childs MD [address] [place] [address] PCP - General 04/03/12 07/27/20 documented as of this encounter
--- OUTSIDE RECORDS SUMMARY | 2023-09-06 01:40 | XMS_ITS | Encounter Summary ---
[facility] Address [facility] [place] [address] Care Team Providers Care Perinatal Educator Name Role Phone Bernadette Childs MD Primary Care Provider [phone] Encounter Details Date Type Department Care Team (Late st Contact Info) Description 07/10/2014 12:40 PM EDT Follow-Up Cardiology at [address] [address] Cornelius Sullivan II, MD [facility] [place] [address] Tachycardia, unspecified Discharge Disposition: Home Social History [...] Sign Reading Time Taken Comments Blood Pressure 124/78 07/10/2014 12:48 PM EDT Pulse 100 07/10/2014 12:48 PM EDT Temperature - - Respiratory Rate - - Oxygen Saturation 97% 07/10/2014 12:48 PM EDT Inhaled Oxygen Concentration - - Weight 106.6 kg (235 lb) 07/10/2014 12:48 PM EDT Height 157.5 cm (5' 2) 07/10/2014 12:48 PM EDT Body Mass Index 42.98 07/10/2014 12:48 PM EDT documented in this encounter Progress Notes * Cornelius Sullivan II - 07/11/2014 6:12 PM EDT Patient Name: Teresita Beltre : 1965 Age: 49 y.o. Date of Visit: 07-10-2014 Primary Care Physician: BERNADETTE CHILDS MD Problem [...] quadrant) ??? Abnormal LFTs (liver function tests) Mrs. Beltre had been evaluated by Pulmonary who felt that she might have some post constriction scarring of her lungs. She did have a normal Duran test and was referred to Pulmonary Rehab at [facility] which she started in May. We also corresponded concerning her metoprolol. She felt it was causing fatigue so we discontinued. The result was somewhat less fatigue but she is now persistently tachycardic. At rehab her heart rate generally gets to the low 120s with low- level treadmill exercise (1.3 mph). Since starting rehab she has not noted any significant improvement in her exertional tolerance which still seems to be functional Class III. She does deny any chest discomfort, PND or orthopnea. Current Medications: Current Outpatient Rx Name Route [...] mouth every 4 hours as needed. ??? pantoprazole (PROTONIX) 40 mg tablet Oral Take 20 mg by mouth daily. ??? traZODone (DESYREL) 100 mg tablet Oral Take 100 mg by mouth nightly. On physical exam, heart rate is 92-100 at rest. Blood pressure is 124/78. Chest is clear to auscultation. Cardiac exam reveals normal S1, S2, no murmur, rub or gallop appreciated. Carotid upstrokes are brisk. There are no carotid bruits. Jugular venous pressure cannot be assessed due to body habitus. Abdominal exam is benign without organomegaly, masses or tenderness. Examination of the extremities reveals no edema. EKG reveals normal sinus rhythm at a rate of 100 and is a normal ECG. Assessment: 49-year-old female with diabetes and a history of pericardial constriction s/p stripping about a year ago. She has had persistent exertional dyspnea since then. 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 She was started on a beta-marva at [facility] after her stripping and we stopped this because of fatigue after her last appointment. Since then tachycardia has been noted. It rarely bothers her but does seem to be disproportionate to her degree of effort. She has not had any dizziness. She notes that she has been on a diuretic since prior to her operation. She has not had any lower extremity edema since the operation. She wonders if it is necessary tocontinue two different diuretics. Plan: 1. Ziopatch. 2. Check echocardiogram. 3. Discontinue Lasix. 4. Follow-up contact with Mrs. Beltre regarding her symptoms and the results of her echo and Ziopatch. 5. Follow-up in this clinic in six months. Twenty minutes of this 30 minute visit was spent in face to face consultation with the patient. CC: Bernadette Childs MD documented in this encounter Plan of Treatment Upcoming Encounters Date Type Department Care Team (Late st Contact Info) Description 09/14/2023 11:00 AM EDT Office [place] [address] Mague Johnson MD [facility] [place] [address] documented as of this encounter Procedures Procedure Name Priority Date/Time Associated Diagnosis Comments EKG 12-LEAD Routine 07/10/2014 1:12 PM EDT Tachycardia, unspecified documented in this encounter Results * Echocardiogram Transthoracic(Leb) (07/22/2014 12:49 PM EDT) EF 67 HEARTLAB SYSTEM Anatomical Region Laterality Modality Other 07/22/2014 Narrative 07/22/2014 2:57 PM EDT Procedure: ? Transthoracic Echocardiogram Patient: ? RUBA PATE M ?(Age): 1965(49) Med Rec#: ?[id number] ? Sex: ?F ? Site Loc: ?[facility] [place] ? Ht / Wt: ??158(cm)/106.5(k Pt. Loc: ? Echo Lab ? BSA: ?2.16 Study Date: ?07/22/2014 ? Pt. Type: Outpatient Tape: ? 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 SUMMARY: 1. 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 ?? 2. The left ventricular chamber size is normal. ??Left ventricular wall thickness is normal. ??The quantitative left ventricular ejection fraction by biplane Aguilar's method is 67%. ??There are no left ventricular segmental wall motion abnormalities other than post-cardiotomy septal motion. ??Doppler assessment is consistent with elevated left sided filling pressure. 3. The right ventricle is borderline dilated. ??Right ventricular global systolic function is low normal. ??The estimated pulmonary artery systolic pressure is 31 mmHg. 4. There is moderate (2-3+/4+) tricuspid regurgitation present (appears functional). 5. The inferior vena cava appears normal in size. ??The estimated right atrial pressure is 3 mmHg. 6. There is no pericardial effusion. ??There is no echocardiographic evidence for residual constrictive physiology. ?? 7. See remainder of report for additional findings. ??Compared to the TTE performed 08/08/13, TR has worsened. ?? FINDINGS: Study Quality ?Adequate Left Ventricle ?The left ventricular chamber size is normal. ?Left ventricular wall thickness is normal. ?There is normal global left ventricular systolic function. ?The quantitative left ventricular ejection fraction by biplane Aguilar's method is 67%. ?There are no left ventricular segmental wall motion abnormalities. ?Post-cardiotomy septal wall motion is present. ?Doppler assessment is consistent with elevated left sided filling pressure. Left Atrium ?The left atrium is normal in size.26 ml/m2 Right Ventricle ?Right ventricular wall thickness is normal. ?Right ventricular global systolic function is low normal. ?No pulmonary hypertension is noted. ?The estimated pulmonary artery systolic pressure is 31 mmHg. ?The estimated right atrial pressure is 3 mmHg. Right Atrium ?The right atrium is normal in size. Aortic Valve ?The aortic valve is trileaflet. The leaflets are thin with normal excursion. There is no aortic stenosis or regurgitation present. Mitral Valve ?The mitral valve appears normal in structure and function. ?There is mild (1+/4+) mitral regurgitation present. Tricuspid Valve ?The tricuspid valve leaflets are morphologically normal. ?There is moderate (2+/4+) tricuspid regurgitation present. Pulmonic Valve ?The pulmonic valve appears normal in structure and function. Pericardium ?There is no pericardial effusion.There is no respiratory septal shift or significant variation in mitral inflow. ??Medial e' is reduced at 5 cm/s. ??Hepatic veins were non-diagnostic. ??IVC is does not appear plethoric. ?A pericardial fat pad is visualized. Aorta ?The aortic root is normal in size. ?The ascending aorta is normal in size. Pulmonary Artery ?The main pulmonary artery appears normal. Venous ?The inferior vena cava appears normal in size. ?There is a greater than 50% respiratory change in the inferior vena cava dimension. Misc ?See remainder of report for additional findings. ?Two-dimensional echo, spectral Doppler and color Doppler performed. Wall Motion: Segment Name ?Rest ? Base-Anteroseptal ?? Normal ? Base-Anterior ? Normal ? Base-Anterolateral ??Normal ? Base-Posterolateral Normal ? Base-Inferior ? Normal ? Base-Inferoseptal ?? Normal ? Mid-Anteroseptal ?Normal ? Mid-Anterior ?Normal ? Mid-Anterolateral ?? Normal ? Mid-Posterolateral ??Normal ? Mid-Inferior ?Normal ? Mid-Inferoseptal ?Normal ? Elgin-Septal ? Normal ? Elgin-Anterior ? Normal ? Elgin-Lateral ?Normal ? Elgin-Inferior ? Normal ? Elgin-Tip ?Normal ? Chambers ?Value ?Units (Range) ? EF ??Bi-p Simp ? 67 ? % (55 to 80) ? IVSd 2D ? 0.5 ?cm ? LVIDd 2D ?3.3 ?cm ? PWd 2D ?0.7 ?cm ? LVIDs 2D ?2.2 ?cm ? LVFS 2D ? 33 ? % ? LA area ? 20.3 ? cm2 (<21) ? RA area ? 14.8 ? cm2 (<18) ? Ao root ? 2.4 ?cm (2.1 to 3.6) ? Asc Ao ?2.2 ?cm (2 to 3.5) ? Mitral Valve ?Value ?Units (Range) ? E peak ?0.99 ? m/sec ? E/A ratio ? 1.3 ?ratio ? MVDT ?223 ?msec ? E1 ?0.05 ? m/sec ? E/E1 ?20 ? ratio ? Tricuspid/Pulmonic Valves ?Value ?Units (Range) ? TR peak janet ? 2.6 ?m/sec ? RAP ? 3 ?mmHg ? RVSP/PASP ? 31 ? mmHg ? This report has been electronically signed by: Dillon Banks. ? 07/22/2014 14:56:31 Images reviewed and interpretation verified [facility] Cardiac Ultrasound Laboratory Procedure Note Dillon Banks MD - 07/22/2014 Procedure: Transthoracic Echocardiogram Patient: RUBA FRANCISCO(Age): 1965(49) Med Rec#: [id number] Sex: F Site Loc: [facility] [place] Ht / Wt: 158(cm)/106.5(k Pt. Loc: Echo Lab BSA: 2.16 Study Date: 07/22/2014 Pt. 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 2. The left ventricular chamber size is normal. Left ventricular wall thickness is normal. The quantitative left ventricular ejection fraction by biplane Aguilar's method is 67%. There are no left ventricular segmental wall motion abnormalities other than post-cardiotomy septal motion. Doppler assessment is consistent with elevated left sided filling pressure. 3. The right ventricle is borderline dilated. Right ventricular global systolic function is low normal. The estimated pulmonary artery systolic pressure is 31 mmHg. 4. There is moderate (2-3+/4+) tricuspid regurgitation present (appears functional). 5. The inferior vena cava appears normal in size. The estimated right atrial pressure is 3 mmHg. 6. There is no pericardial effusion. There is no echocardiographic evidence for residual constrictive physiology. 7. See remainder of report for additional findings. Compared to the TTE performed 08/08/13, TR has worsened. FINDINGS: Study Quality Adequate Left Ventricle The left ventricular chamber size is normal. Left ventricular wall thickness is normal. There is normal global left ventricular systolic function. The quantitative left ventricular ejection fraction by biplane Aguilar's method is 67%. There are no left ventricular segmental wall motion abnormalities. Post-cardiotomy septal wall motion is present. Doppler assessment is consistent with elevated left sided filling pressure. Left Atrium The left atrium is normal in size.26 ml/m2 Right Ventricle Right ventricular wall thickness is normal. Right ventricular global systolic function is low normal. No pulmonary hypertension is noted. The estimated pulmonary artery systolic pressure is 31 mmHg. The estimated right atrial pressure is 3 mmHg. Right Atrium The right atrium is normal in size. Aortic Valve The aortic valve is trileaflet. The leaflets are thin with normal excursion. There is no aortic stenosis or regurgitation present. Mitral Valve The mitral valve appears normal in structure and function. There is mild (1+/4+) mitral regurgitation present. Tricuspid Valve The tricuspid valve leaflets are morphologically normal. There is moderate (2+/4+) tricuspid regurgitation present. Pulmonic Valve The pulmonic valve appears normal in structure and function. Pericardium There is no pericardial effusion.There is no respiratory septal shift or significant variation in mitral inflow. Medial e' is reduced at 5 cm/s. Hepatic veins were non-diagnostic. IVC is does not appear plethoric. A pericardial fat pad is visualized. Aorta The aortic root is normal in size. The ascending aorta is normal in size. Pulmonary Artery The main pulmonary artery appears normal. Venous The inferior vena cava appears normal in size. There is a greater than 50% respiratory change in the inferior vena cava dimension. Misc See remainder of report for additional findings. Two-dimensional echo, spectral Doppler and color Doppler performed. Wall Motion: Segment Name Rest Base-Anteroseptal Normal Base-Anterior Normal Base-Anterolateral Normal Base-Posterolateral Normal Base-Inferior Normal Base-Inferoseptal Normal Mid-Anteroseptal Normal Mid-Anterior Normal Mid-Anterolateral Normal Mid-Posterolateral Normal Mid-Inferior Normal Mid-Inferoseptal Normal Elgin-Septal Normal Elgin-Anterior Normal Elgin-Lateral Normal Elgin-Inferior Normal Elgin-Tip Normal Chambers Value Units (Range) EF Bi-p Simp 67 % (55 to 80) IVSd 2D 0.5 cm LVIDd 2D 3.3 cm PWd 2D 0.7 cm LVIDs 2D 2.2 cm LVFS 2D 33 % LA area 20.3 cm2 (<21) RA area 14.8 cm2 (<18) Ao root 2.4 cm (2.1 to 3.6) Asc Ao 2.2 cm (2 to 3.5) Mitral Valve Value Units (Range) E peak 0.99 m/sec E/A ratio 1.3 ratio MVDT 223 msec E1 0.05 m/sec E/E1 20 ratio Tricuspid/Pulmonic Valves Value Units (Range) TR peak janet 2.6 m/sec RAP 3 mmHg RVSP/PASP 31 mmHg This report has been electronically signed by: Dillon Banks 07/22/2014 14:56:31 Images reviewed and interpretation verified [facility] Cardiac Ultrasound Laboratory Cornelius Sullivan II, MD ECHO ORDERABLES * ZIOPATCH (07/10/2014 1:54 PM EDT) Anatomical [...] II, MD CARDIAC SERVICE S ORDERABLES * EKG 12 Lead (07/10/2014 1:12 PM EDT) Ventricular rate 100 BPM MUSE SYSTEM Atrial Rate 100 BPM MUSE SYSTEM P-R Interval 148 ms MUSE SYSTEM QRS Duration 84 ms MUSE SYSTEM Q-T Interval 364 ms MUSE SYSTEM QTC Calculated (Bezet) 469 ms MUSE SYSTEM Calculated P [place] 48 degrees MUSE SYSTEM Calculated R [place] 42 degrees MUSE SYSTEM Calculated T [place] 35 degrees MUSE SYSTEM INTERPRETATION Normal sinus rhythm Normal ECG When compared with ECG of 20-MAR-2013 21:38, Nonspecific T wave abnormality has replaced inverted T waves in Inferior leads Nonspecific T wave abnormality no longer evident in Anterolateral leads Confirmed by MD DOTY ALAN ([id number]) on 07/10/2014 8:48:51 PM MUSE SYSTEM 07/10/2014 1:12 PM EDT 07/10/2014 8:48 PM EDT Cornelius Sullivan II, MD ECG ORDERABLES MUSE SYSTEM documented in this encounter Visit Diagnoses Diagnosis Tachycardia, unspecified Tachycardia, unspecified Tachycardia, unspecified documented in this encounter Care Teams Perinatal Educator Relationship Specialty Start Date End Date Bernadette Childs MD [address] [place] [address] PCP - General 04/03/12 07/27/20 documented as of this encounter
--- OUTSIDE RECORDS SUMMARY | 2023-09-06 01:40 | XMS_ITS | Encounter Summary ---
Author Organization [facility] Address [facility] [place] [address] Care Team Providers Care Uniform Room Attendant Name Role Phone Bernadette Childs MD Primary Care Provider [phone] Reason for Visit * Reason Onset Date Comments Results 08/10/2013 Encounter Details Date Type Department Care Team (Late st Contact Info) Description 08/10/2013 Telephone Cardiology at [address] [address] Cornelius Sullivan II, MD [facility] [place] [address] Results Social History Tobacco Use Types Packs/Day Years [...] Telephone Encounter - Cornelius Sullivan II - 08/10/2013 5:44 PM EDT Called patient and discussed echo result (see below). Much improved and without evidence of constrictive physiology. She is still symptomatic. Reasons are unclear. RAD vs fluid retention vs post thoracotomy. Increased diuretic seemed to help so this will continue. She was given new incentive spirometery. She will call me for referral to pulmonary if sxs persist in a month. Echo SUMMARY: 1. Status post complete pericardectomy (05/04/13, [facility]) for constrictive pericarditis. 2. The left ventricular [...] TTE performed 03/14/13, significant changes have occurred. * Telephone Encounter - Brie Plasencia - 08/10/2013 11:44 AM EDT Teresita Vance called looking for the results of her echo from Tuesday. Thanks Brie documented in this encounter Plan of Treatment Upcoming Encounters Date Type Department Care Team (Late st Contact Info) Description 09/14/2023 11:00 AM EDT Office [place] [address] Mague Johnson MD [facility] [place] [address] documented as of this encounter Visit Diagnoses Not on filedocumented in this encounter Care Teams Uniform Room Attendant Relationship Specialty Start Date End Date Bernadette Childs MD [address] [place] [address] PCP - General 04/03/12 07/27/20 documented as of this encounter
--- OUTSIDE RECORDS SUMMARY | 2023-09-06 01:40 | XMS_ITS | Encounter Summary ---
[place] [address] Care Team Providers Care Pit Boss Name Role Phone Bernadette Childs MD Primary Care Provider [phone] Encounter Details Date Type Department Care Team (Late st Contact Info) Description 01/25/2014 [place] [id number] Kendra Walden, RT Social History Tobacco Use Types Packs/Day Years [...] encounter Miscellaneous Notes * Telephone Encounter - Kendra Walden RT - 01/25/2014 9:41 AM EST Called Teresita Beltre to review pulmonary rehabilitation referral received and determine closest pulmonary rehab program to her home. She noted that [facility] pulmonary rehab program is closest to her. Provided her the contact information for this program and plan to forward referral to them. She noted that she has [place] Medicaid and her PCP would need to sign off on referral. I will forward this information also to [facility] pulmonary rehab. documented in this encounter Plan of Treatment Upcoming Encounters Date Type Department Care Team (Late st Contact Info) Description 09/14/2023 11:00 AM EDT Office [place] [address] Mague Johnson MD [facility] [place] [address] documented as of this encounter Visit Diagnoses Not on filedocumented in this encounter Care Teams Pit Boss Relationship Specialty Start Date End Date Bernadette Childs MD [address] [place] [address] PCP - General 04/03/12 07/27/20 documented as of this encounter
--- OUTSIDE RECORDS SUMMARY | 2023-09-06 01:40 | XMS_ITS | Encounter Summary ---
[place] [address] Care Team Providers Care Degreaser Name Role Phone Bernadette Childs MD Primary Care Provider [phone] Reason for Visit * Reason Onset Date Comments Referral 09/11/2013 Encounter Details Date Type Department Care Team (Late st Contact Info) Description 09/11/2013 Telephone [place] [phone] Veronica Urbina Referral Social History Tobacco Use Types Packs/Day Years [...] encounter Miscellaneous Notes * Telephone Encounter - Cristina Prince - 09/11/2013 4:22 PM EDT Ask patient to verify the following: Full name: Teresita Beltre : 1965 Phone number: [phone] (home) Mailing address: o [address] [address] AGE: 48 y.o. REASON FOR APPOINTMENT: CONTINUED L SHOULDER PAIN 14-17 and 18+ ask if sports related= [id number] o confirm ???referred to?? provider is appropriate to assess condition 0-17 = Pedi = [id number] o NOT sports related 18-100 = Adult = [id number] o NOT sports related How long have you had these symptoms? (days, weeks, months, years) Is this WORKERS COMP? NO If YES NO? SINCE APRIL 2013 DOI: Records Retrieval What? When? (m/d/y) Where? (facility) Who? Notes: Checklist Physical exam w/in last year? NO X-rays NO MRI NO CT Scan NO Physical Therapy YES LOUISA W[facility]AND PT Injection NO Other diagnostic studies NO Other therapies NO Other Specialist(s) NO If 2nd (+) opinion get info on previous; book with MD only ? NO Have you had any surgeries for this issue? NO Operative report Did surgery include placement of implant/hardware or fixation of any kind? NO Implant stickers Do you have a [facility] account? If ???NO?? deploy dotphrase: MYDHPATIENTINSTRUCTIONS * Telephone Encounter - Cristina Prince - 09/11/2013 4:20 PM EDT Ask patient to verify the following: Full name: Teresita Beltre : 1965 Phone number: [phone] (home) Mailing address: [address] [address] AGE: 48 y.o. REASON FOR APPOINTMENT: 14-17 and 18+ ask if sports related= [id number] o confirm ???referred to?? provider is appropriate to assess condition 0-17 = Pedi = [id number] o NOT sports related 18-100 = Adult = [id number] o NOT sports related * Telephone Encounter - Veronica Urbina - 09/11/2013 2:33 PM EDT I called and left a message regarding the referral to orthopaedics. documented in this encounter Plan of Treatment Upcoming Encounters Date Type Department Care Team (Late st Contact Info) Description 09/14/2023 11:00 AM EDT Office Visit [place] [address] Mague Johnson MD [facility] DR [place]OCRINOLOG[place] [address] documented as of this encounter Visit Diagnoses Not on filedocumented in this encounter Care Teams Degreaser Relationship Specialty Start Date End Date Bernadette Childs MD [address] [facility] [address] [place] [address] PCP - General 04/03/12 07/27/20 documented as of this encounter
--- OUTSIDE RECORDS SUMMARY | 2023-09-06 01:40 | XMS_ITS | Encounter Summary ---
Author Organization [facility], Later [facility] Address [facility] [place] [address] Care Team Providers Care Golf Cart Assembler Name Role Phone Bernadette Childs MD Primary Care Provider [phone] Encounter Details Date Type Department Care Team (Late st Contact Info) Description 11/26/2013 10:48 AM EDT - 11/26/2013 11:59 PM EDT Hospital [place] [address] SCHEDULE 1, PFT Cornelius Sullivan II, MD [facility] [place] [address] FIGUEREDO (dyspnea on exertion) (Primary Dx) Discharge Disposition: Home Social History [...] as of this encounter Procedure Notes * Neena Tavares MD - 11/27/2013 8:13 AM EDTAssociated Order(s): PULMONARY FUNCTION TEST X: pertinent finding Spirometry: ( ) Normal spirometry ( ) Obstructive ventilatory defect ( ) mild (FEV1 % pred >70%), ( ) moderate (60-69), ( ) moderately severe (50-59) ( ) severe (35-49), ( ) very severe (<35) (x ) Suspected restrictive defect (reduced FVC with normal FEV1/FVC), no obstruction ( ) Unable to rule out concomitant restrictive defect ( reduced FVC and FEV1/FVC). Bronchodilator reponse: ( )Yes (x )No Lung Volumes: ( ) No evidence of restrictive ventilatory defect ( Normal TLC ) (x ) Restrictive ventilatory defect ( TLC <LLN) ( ) air trapping Diffusing Capacity: ( ) Normal diffusing capacity (x ) Reduced diffusing capacity ( x ) mild , ( ) moderate (40-60% pred), ( ) severe Pulse oximetry: Resting SpO2 93 % at (x ) Room air ( ) with O2 : L /min Desaturation during Ft ambulation ( ) Yes ( ) No Comment: Neena Tavares MD Pulmonary/Critical Care [facility] documented in this encounter Plan of Treatment Upcoming Encounters Date Type Department Care Team (Late st Contact Info) Description 09/14/2023 11:00 AM EDT Office [place] [address] Mague Johnson MD [facility] DR [place]OCRIN[place] [address] documented as of this encounter Procedures Procedure Name Priority Date/Time Associated Diagnosis Comments COMMON PULMONARY FUNCTION TEST Routine 11/27/2013 8:14 AM EDT FIGUEREDO (dyspnea on exertion) documented in this encounter Results * Pulmonary Function Testing (11/27/2013 8:14 AM EDT) Narrative Neena Tavares MD - 11/27/2013 8:14 AM EDT Neena Tavares MD ? 11/27/2013 ??8:14 AM X: pertinent finding Spirometry: ?? ( ??) Normal spirometry ( ??) Obstructive ventilatory defect ( ??) mild (FEV1 % pred >70%), ( ??) moderate (60-69), ( ??) moderately severe (50-59) ( ??) severe (35-49), ( ??) very severe (<35) (x ??) Suspected restrictive defect (reduced FVC with normal FEV1/FVC), no obstruction ( ??) Unable to rule out concomitant restrictive defect ( reduced FVC and FEV1/FVC). ?? Bronchodilator reponse: ( ??)Yes ??(x ??)No Lung Volumes: ( ??) No evidence of restrictive ventilatory defect ( Normal TLC ) (x ??) Restrictive ventilatory defect ( TLC <LLN) ( ??) air trapping Diffusing Capacity: ( ??) Normal diffusing capacity (x ??) Reduced diffusing capacity ??( x ) mild , ( ??) moderate (40-60% pred), ( ??) severe Pulse oximetry: Resting ??SpO2 ??93 ?? % ??at (x ??) ??Room air ??( ??) with O2 : ? L /min Desaturation during ??Ft ambulation ( ?? ) Yes ( ?? ) No Comment: Neena Tavares MD Pulmonary/Critical Care [facility] Procedure Note Neena Tavares MD - 11/27/2013 8:13 AM EDT X: pertinent finding Spirometry: ( ) Normal spirometry ( ) Obstructive ventilatory defect ( ) mild (FEV1 % pred >70%), ( ) moderate (60-69), ( ) moderatelysevere (50-59) ( ) severe (35-49), ( ) very severe (<35) (x ) Suspected restrictive defect (reduced FVC with normal FEV1/FVC), noobstruction ( ) Unable to rule out concomitant restrictive defect ( reduced FVC andFEV1/FVC). Bronchodilator reponse: ( )Yes (x )No Lung Volumes: ( ) No evidence of restrictive ventilatory defect ( Normal TLC ) (x ) Restrictive ventilatory defect ( TLC <LLN) ( ) air trapping Diffusing Capacity: ( ) Normal diffusing capacity (x ) Reduced diffusing capacity ( x ) mild , ( ) moderate (40-60% pred), ( ) severe Pulse oximetry: Resting SpO2 93 % at (x ) Room air ( ) with O2 : L /min Desaturation during Ft ambulation ( ) Yes ( ) No Comment: Neena Tavares MD Pulmonary/Critical Care [facility] Cornelius Sullivan II, MD PFT ORDERABLES documented in this encounter Visit Diagnoses Diagnosis FIGUEREDO (dyspnea on exertion)- Primary Other dyspnea and respiratory abnormality documented in this encounter Care Teams Golf Cart Assembler Relationship Specialty Start Date End Date Bernadette Childs MD [address] [place] [address] PCP - General 04/03/12 07/27/20 documented as of this encounter
--- OUTSIDE RECORDS SUMMARY | 2023-09-06 01:40 | XMS_ITS | Encounter Summary ---
Author Organization [facility] Address [facility] [place] [address] Care Team Providers Care Nursing Informatics Analyst Name Role Phone Bernadette Childs MD Primary Care Provider [phone] Encounter Details Date Type Department Care Team (Late st Contact Info) Description 10/03/2014 [place] [address] Cornelius Sullivan II, MD [facility] [place] [address] Constrictive pericarditis Social History Tobacco Use Types [...] 11:00 AM EDT Office [place] [address] Mague Johnson MD [facility] [address] documented as of this encounter Results * Echocardiogram Transthoracic(Leb) (11/20/2014 2:17 PM EDT) Anatomical Region Laterality Modality Other 11/20/2014 Narrative 11/20/2014 3:40 PM EDT Procedure: ?Transthoracic Echocardiogram Patient: ?RUBA Ovalle ? (Age): 1965(49y) Med Rec#: ? [id number] ?Sex: ?F ? Site Loc: ? [facility] ?Ht / Wt: ??158(cm)/107(kg) Pt. Loc: ?Echo Lab ?BSA: ?2.06 Study Date: ?? 11/20/2014 ?Pt. Type: Outpatient Tape: ? 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 Sinus SUMMARY: 1. The left ventricular chamber size is normal. Left ventricular wall thickness is normal. There is normal global left ventricular systolic function. ??Ejection fraction is estimated to be 65%. There are no left ventricular segmental wall motion abnormalities. Doppler assessment is consistent with normal left sided filling pressure. 2. The right ventricle is borderline dilated. Right ventricular global systolic function is low normal. The estimated pulmonary artery systolic pressure is 30 mmHg. 3. There is no hemodynamically significant valvular disease. There is mild tricuspid regurgitation. 4. As compared to the prior study ??dated 07/22/2014 the tricuspid regurgitation has significantly improved. FINDINGS: ? Study Quality ?Adequate Left Ventricle ?The left ventricular chamber size is normal. ?Left ventricular wall thickness is normal. ?There is normal global left ventricular systolic function. ??Ejection fraction is estimated to be 65%. ?There are no left ventricular segmental wall motion abnormalities. ?The left ventricular diastolic filling pattern is consistent with impaired LV relaxation. ?Doppler assessment is consistent with normal left sided filling pressure. Left Atrium ?The left atrium is normal in size.12 ml/m2 Right Ventricle ?The right ventricle is mildly dilated. ?Right ventricular wall thickness is normal. ?Right ventricular global systolic function is low normal. ?The estimated pulmonary artery systolic pressure is 30.25 mmHg. Right Atrium ?The right atrium appears normal. Aortic Valve ?The aortic valve is trileaflet. The leaflets are thin with normal excursion. There is no aortic stenosis or regurgitation present. Mitral Valve ?The mitral valve leaflets are mildly thickened. ?There is trace mitral regurgitation present. Tricuspid Valve ?The tricuspid valve appears normal in structure and function. ?There is mild (1+/4+) tricuspid regurgitation present. Pulmonic Valve ?The pulmonic valve appears normal in structure and function. Aorta ?The aortic root is normal in [...] ?Value ?Units (Range) ? IVSd (2D) ? 0.8 ?cm ? LVPWd (2D) ?0.7 ?cm ? IVS:LVPW ratio (2D) 1.1 ?ratio ? LVIDd (2D) ?3.6 ?cm ? LVIDs (2D) ?2.3 ?cm ? LVIDd (2D) index ?1.7 ?cm/m2 ? LVIDs (2D) index ?1.1 ?cm/m2 ? LV FS (2D) ?36 ? % ? EF Teichholz (2D) ?? 66 ? % ? Ao root diameter (2D2.5 ?cm (2.1 - 3.6) ? Ascending Ao ?2.3 ?cm (2 - 3.5) ? Volumes/Mass ?Value ?Units (Range) ? LA Area 2 CH ?12 ? cm2 ? LA Area 4 CH ?11 ? cm2 (<21) ? LA ESV BP (A/L) inde11.7 ? ml/m2 ? RA AREA 4CH ? 12 ? cm2 ? LA ESV SP 4CH (MOD) 22.1 ? ml ? LA ESV SP 2CH (MOD) 23 ? ml ? LV mass (2D) ?70.7 ? g ? LV mass (2D) index ??34.3 ? g/m2 ? Diastolic/Systolic Function ?Value ?Units (Range) ? MV E-wave Vmax ?0.6 ?m/sec ? MV deceleration aiia629.3 ?msec ? MV A-wave Vmax ?0.9 ?m/sec ? MV E:A ratio ?0.7 ?ratio ? LV septal e' Vmax ?? 0.1 ?m/sec ? LV lateral e' Vmax ??0.1 ?m/sec ? LV average e' Vmax ??0.1 ?m/sec ? LV E:e' septal ratio10.4 ? ratio ? LV E:e' lateral rati5.7 ?ratio ? LV average E:e' rati7.8 ?ratio ? Tricuspid Valve ?Value ?Units (Range) ? TR Vmax ? 2.6 ?m/sec ? TR peak gradient ?27.3 ? mmHg ? RAP ? 3 ?mmHg ? RVSP ?30.3 ? mmHg ? Measurement Trending Name ? 11/20/2014 ? LVIDd (2D) ? 3.57 LVIDs (2D) ? 2.3 Wall Motion: Segment Name ?Rest ? Base-Anteroseptal ?? Normal ? Base-Anterior ? Normal ? Base-Anterolateral ??Normal ? Base-Posterolateral Normal ? Base-Inferior ? Normal ? Base-Inferoseptal ?? Normal ? Mid-Anteroseptal ?Normal ? Mid-Anterior ?Normal ? Mid-Anterolateral ?? Normal ? Mid-Posterolateral ??Normal ? Mid-Inferior ?Normal ? Mid-Inferoseptal ?Normal ? [place]-Septal ? Normal ? [place]-Anterior ? Normal ? [place]-Lateral ?Normal ? [place]-Inferior ? Normal ? [place]-Tip ?Normal ? This report has been electronically signed by: Saqib Blanton MD ? 11/20/2014 15:39:43 Images reviewed and interpretation verified [facility] Cardiac Ultrasound Laboratory Procedure Note Saqib Blanton MD - 11/20/2014 Procedure: Transthoracic Echocardiogram Patient: RUBA Ovalle DOB(Age): 1965(49y) Med Rec#: [id number] Sex: F Site Loc: [facility] Ht / Wt: 158(cm)/107(kg) Pt. Loc: Echo Lab BSA: 2.06 Study Date: 11/20/2014 Pt. 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 The left ventricular chamber size is normal. Left ventricular wall thickness is normal. There is normal global left ventricular systolic function. Ejection fraction is estimated to be 65%. There are no left ventricular segmental wall motion abnormalities. Doppler assessment is consistent with normal left sided filling pressure. 2. The right ventricle is borderline dilated. Right ventricular global systolic function is low normal. The estimated pulmonary artery systolic pressure is 30 mmHg. 3. There is no hemodynamically significant valvular disease. There is mild tricuspid regurgitation. 4. As compared to the prior study dated 07/22/2014 the tricuspid regurgitation has significantly improved. FINDINGS: Study Quality Adequate Left Ventricle The left ventricular chamber size is normal. Left ventricular wall thickness is normal. There is normal global left ventricular systolic function. Ejection fraction is estimated to be 65%. There are no left ventricular segmental wall motion abnormalities. The left ventricular diastolic filling pattern is consistent with impaired LV relaxation. Doppler assessment is consistent with normal left sided filling pressure. Left Atrium The left atrium is normal in size.12 ml/m2 Right Ventricle The right ventricle is mildly dilated. Right ventricular wall thickness is normal. Right ventricular global systolic function is low normal. The estimated pulmonary artery systolic pressure is 30.25 mmHg. Right Atrium The right atrium appears normal. Aortic Valve The aortic valve is trileaflet. The leaflets are thin with normal excursion. There is no aortic stenosis or regurgitation present. Mitral Valve The mitral valve leaflets are mildly thickened. There is trace mitral regurgitation present. Tricuspid Valve The tricuspid valve appears normal in structure and function. There is mild (1+/4+) tricuspid regurgitation present. Pulmonic Valve The pulmonic valve appears normal in structure and function. Aorta The aortic root is normal in [...] Chambers 2D Value Units (Range) IVSd (2D) 0.8 cm LVPWd (2D) 0.7 cm IVS:LVPW ratio (2D) 1.1 ratio LVIDd (2D) 3.6 cm LVIDs (2D) 2.3 cm LVIDd (2D) index 1.7 cm/m2 LVIDs (2D) index 1.1 cm/m2 LV FS (2D) 36 % EF Teichholz (2D) 66 % Ao root diameter (2D2.5 cm (2.1 - 3.6) Ascending Ao 2.3 cm (2 - 3.5) Volumes/Mass Value Units (Range) LA Area 2 CH 12 cm2 LA Area 4 CH 11 cm2 (<21) LA ESV BP (A/L) inde11.7 ml/m2 RA AREA 4CH 12 cm2 LA ESV SP 4CH (MOD) 22.1 ml LA ESV SP 2CH (MOD) 23 ml LV mass (2D) 70.7 g LV mass (2D) index 34.3 g/m2 Diastolic/Systolic Function Value Units (Range) MV E-wave Vmax 0.6 m/sec MV deceleration aybz244.3 msec MV A-wave Vmax 0.9 m/sec MV E:A ratio 0.7 ratio LV septal e' Vmax 0.1 m/sec LV lateral e' Vmax 0.1 m/sec LV average e' Vmax 0.1 m/sec LV E:e' septal ratio10.4 ratio LV E:e' lateral rati5.7 ratio LV average E:e' rati7.8 ratio Tricuspid Valve Value Units (Range) TR Vmax 2.6 m/sec TR peak gradient 27.3 mmHg RAP 3 mmHg RVSP 30.3 mmHg Measurement Trending Name 11/20/2014 LVIDd (2D) 3.57 LVIDs (2D) 2.3 Wall Motion: Segment Name Rest Base-Anteroseptal Normal Base-Anterior Normal Base-Anterolateral Normal Base-Posterolateral Normal Base-Inferior Normal Base-Inferoseptal Normal Mid-Anteroseptal Normal Mid-Anterior Normal Mid-Anterolateral Normal Mid-Posterolateral Normal Mid-Inferior Normal Mid-Inferoseptal Normal [place]-Septal Normal [place]-Anterior Normal [place]-Lateral Normal [place]-Inferior Normal [place]-Tip Normal This report has been electronically signed by: Saqib Blanton MD 11/20/2014 15:39:43 Images reviewed and interpretation verified [facility] Cardiac Ultrasound [facility] Cornelius Sullivan II, MD ECHO ORDERABLES documented in this encounter Visit Diagnoses Diagnosis Constrictive pericarditis Constrictive pericarditis documented in this encounter Care Teams Nursing Informatics Analyst Relationship Specialty Start Date End Date Bernadette Childs MD [address] [place], [place] [address] [place] [address] PCP - General 04/03/12 07/27/20 documented as of this encounter
--- OUTSIDE RECORDS SUMMARY | 2023-09-06 01:40 | XMS_ITS | Encounter Summary ---
Author Organization [facility] [place] [address] Care Team Providers Care Life Skills Instructor Name Role Phone Bernadette Childs MD Primary Care Provider [phone] Encounter Details Date Type Department Care Team (Late st Contact Info) Description 08/21/2015 [place] [id number] Cornelius Sullivan II, MD [facility] [address] Social History Tobacco Use Types Packs/Day Years [...] Telephone Encounter - Cornelius Sullivan II - 08/21/2015 2:14 PM EDT Called patient, left message: K+ 4.9 on 08/11/2015 (drawn at [facility]). Cornelius Sullivan MD documented in this encounter Plan of Treatment Upcoming Encounters Date Type Department Care Team (Late st Contact Info) Description 09/14/2023 11:00 AM EDT Office [place] [address] Mague Johnson MD [facility] [place] [address] documented as of this encounter Visit Diagnoses Not on filedocumented in this encounter Care Teams Life Skills Instructor Relationship Specialty Start Date End Date Bernadette Childs MD [address] [facility] [address] [place] [address] PCP - General 04/03/12 07/27/20 documented as of this encounter
--- OUTSIDE RECORDS SUMMARY | 2023-09-06 01:40 | XMS_ITS | Encounter Summary ---
Author Organization [facility] Address [facility] [place] [address] Care Team Providers Care Director General Name Role Phone Bernadette Childs MD Primary Care Provider [phone] Encounter Details Date Type Department Care Team (Late st Contact Info) Description 08/06/2013 Orders Only Cardiology at [address] [address] Cornelius Sullivan II, MD [facility] [place] [address] Social History Tobacco Use Types Packs/Day Years [...] 11:00 AM EDT Office Visit [place] [address] Mague Johnson MD [facility] [place] [address] documented as of this encounter Procedures Procedure Name Priority Date/Time Associated Diagnosis Comments FILM LIBRARY STORAGE ONLY CT CHEST Routine 08/06/2013 7:48 AM EDT documented in this encounter Results * Film Library- Storage only CT Chest (08/06/2013 7:48 AM EDT) Anatomical Region Laterality Modality Chest Other 08/06/2013 7:48 AM EDT Narrative 08/07/2013 7:49 AM EDT This is a Non-reportable exam Procedure Note 08/07/2013 This is a Non-reportable exam Cornelius Sullivan II, MD IMG FILM LIBRAR Y ORDERABLES documented in this encounter Visit Diagnoses Not on filedocumented in this encounter Care Teams Director General Relationship Specialty Start Date End Date Bernadette Childs MD [address] [place] [address] PCP - General 04/03/12 07/27/20 documented as of this encounter
--- OUTSIDE RECORDS SUMMARY | 2023-09-06 01:40 | XMS_ITS | Encounter Summary ---
Author Organization [facility] Address [facility] [facility] [place] [address] Care Team Providers Care Nail Expert Name Role Phone Bernadette Childs MD Primary Care Provider [phone] Encounter Details Date Type Department Care Team (Late st Contact Info) Description 07/22/2014 10:38 AM EDT - 07/22/2014 11:59 PM EDT Hospital Encounter Non-[place] [phone] CARDIO, ECHO SIXTY MIN APPT None Cornelius Sullivan II, MD [facility] [place] [address] Tachycardia, unspecified Discharge Disposition: Home Social History [...] AM EDT Office Visit [place] [address] Mague Johnson MD [facility] [place] [address] documented as of this encounter Procedures Procedure Name Priority Date/Time Associated Diagnosis Comments ECHOCARDIOGRAM TRANSTHORACIC Routine 07/22/2014 12:49 PM EDT Tachycardia, unspecified documented in this encounter Results * Echocardiogram Transthoracic(Leb) (07/22/2014 12:49 PM EDT) EF 67 [facility] Anatomical Region Laterality Modality Other 07/22/2014 Narrative 07/22/2014 2:57 PM EDT Procedure: ? Transthoracic Echocardiogram Patient: ? RUBA Ovalle ?(Age): 1965(49) Med Rec#: ?[id number] ? Sex: ?F ? [facility] Loc: [facility] ? Ht / Wt: ??158(cm)/106.5(k Pt. Loc: ? Echo Lab ? BSA: ?2.16 Study Date: ?07/22/2014 ? Pt. Type: Outpatient Tape: ? Referring: Cornelius Sullivan Software Developer Consultant: Pako Arriaza Diagnosis: ??Constrictive pericarditis (423.2) CPT Code(s): ??Echo Full (80052), ??Spectral Doppler (93068), ??Color Doppler (17841), ??Echo Full (20446), ??Spectral Doppler (64612), ??Color Doppler (50006), Indication(s): ??Tachycardia Rhythm: HR ?BP ?124/80 ?? SUMMARY: 1. 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 [...] ? Mid-Inferior ?Normal ? Mid-Inferoseptal ?Normal ? [place]-Septal ? Normal ? [place]-Anterior ? Normal ? [place]-Lateral ?Normal ? [place]-Inferior ? Normal ? [place]-Tip ?Normal ? Chambers ?Value ?Units (Range) ? [...] 07/22/2014 14:56:31 Images reviewed and interpretation verified [facility] Cardiac Ultrasound Laboratory Procedure Note Dillon Banks MD - 07/22/2014 Procedure: Transthoracic Echocardiogram Patient: RUBA Ovalle (Age): 1965(49) Med Rec#: [id number] Sex: F [facility] Ht / Wt: 158(cm)/106.5(k Pt. Loc: Echo Lab BSA: 2.16 Study Date: 07/22/2014 Pt. Type: Outpatient Tape: Referring: Cornelius Sullivan Software Developer Consultant: Pako Arriaza Diagnosis: Constrictive pericarditis (423.2) CPT Code(s): Echo Full (21110), Spectral Doppler (81845), Color Doppler (42669), Echo Full (30420), Spectral Doppler (22436), Color Doppler (45791), Indication(s): Tachycardia Rhythm: HR BP 124/80 SUMMARY: 1. 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 [...] Normal Mid-Posterolateral Normal Mid-Inferior Normal Mid-Inferoseptal Normal [place]-Septal Normal [place]-Anterior Normal [place]-Lateral Normal [place]-Inferior Normal [place]-Tip Normal Chambers Value Units (Range) EF Bi-p [...] 07/22/2014 14:56:31 Images reviewed and interpretation verified [facility] Cardiac Ultrasound Laboratory Cornelius Sullivan II, MD ECHO ORDERABLES documented in this encounter Visit Diagnoses Diagnosis Tachycardia, unspecified documented in this encounter Care Teams Nail Expert Relationship Specialty Start Date End Date Bernadette Childs MD [address] [facility] 1 [place] [address] PCP - General 04/03/12 07/27/20 documented as of this encounter
--- OUTSIDE RECORDS SUMMARY | 2023-09-06 01:40 | XMS_ITS | Encounter Summary ---
Author Organization [facility] Address [facility] [place] [address] Care Team Providers Care Composition Weatherboard Applier Name Role Phone Bernadette Childs MD Primary Care Provider [phone] Reason for Visit * Reason Onset Date Comments Medication Refill 06/18/2015 Encounter Details Date Type Department Care Team (Late st Contact Info) Description 06/18/2015 Refill Cardiology at [address] [address] Cornelius Sullivan II, MD [facility] [place] [address] Medication Refill Social History Tobacco Use Types [...] 11:00 AM EDT Office [place] [address] Mague Johnson MD [facility] [place] [address] documented as of this encounter Visit Diagnoses Diagnosis Tachycardia, unspecified On potassium sparing diuretic therapy documented in this encounter Care Teams Composition Weatherboard Applier Relationship Specialty Start Date End Date Bernadette Childs MD [address] [facility] 1 [place] [address] PCP - General 04/03/12 07/27/20 documented as of this encounter
--- OUTSIDE RECORDS SUMMARY | 2023-09-06 01:40 | XMS_ITS | Encounter Summary ---
Author Organization [facility] Address [facility] [place] [address] Care Team Providers Care Servicer Travel Trailers Name Role Phone Bernadette Childs MD Primary Care Provider [phone] Encounter Details Date Type Department Care Team (Latest Contact Info) Description 10/02/2013 12:30 PM EDT - 10/02/2013 2:23 PM EDT Hospital Encounter XRay at [address] [place] [address] Pain in left shoulder Social History Tobacco Use Types Packs/Day Years [...] 11:00 AM EDT Office [place] [address] Mague Johnson MD [facility] DR ENDOCRINOLOG[place] [address] documented as of this encounter Procedures Procedure Name Priority Date/Time Associated Diagnosis Comments XR SHOULDER Routine 10/02/2013 12:45 PM EDT Pain in left shoulder documented in this encounter Results * XR shoulder (10/02/2013 [...] region documented in this encounter Care Teams Servicer Travel Trailers Relationship Specialty Start Date End Date Bernadette Childs MD [address] [facility] [address] [place] [address] PCP - General 04/03/12 07/27/20 documented as of this encounter
--- OUTSIDE RECORDS SUMMARY | 2023-09-06 01:40 | XMS_ITS | Encounter Summary ---
Author Organization [facility] Address [facility] [place] [address] Care Team Providers Care Medicare Nurse Name Role Phone Bernadette Childs MD Primary Care Provider [phone] Encounter Details Date Type Department Care Team (Late st Contact Info) Description 12/25/2013 Orders [place] [address] Nicko Larson MD [facility] [place] [address] Social History Tobacco Use Types Packs/Day Years [...] 11:00 AM EDT Office Visit [place] [address] Mague Johnson MD [facility] [place] [address] documented as of this encounter Procedures Procedure Name Priority Date/Time Associated Diagnosis Comments FILM LIBRARY STORAGE ONLY ULTRASOUND STUDY Routine 12/25/2013 10:02 AM EST documented in this encounter Results * Film Library- Storage only Ultrasound Study (12/25/2013 10:02 AM EST) Anatomical Region Laterality Modality Other 12/25/2013 10:0 2 AM EST Narrative 12/26/2013 10:08 AM EST This is a Non-reportable exam Procedure Note DOUG, UNSIGNED REPORT - 12/26/2013 This is a Non-reportable exam Nicko Abdi MD IMG FILM LIBRARY OR DERABLES documented in this encounter Visit Diagnoses Not on filedocumented in this encounter Care Teams Medicare Nurse Relationship Specialty Start Date End Date Bernadette Childs MD [address] [place] [address] PCP - General 04/03/12 07/27/20 documented as of this encounter
--- OUTSIDE RECORDS SUMMARY | 2023-09-06 01:40 | XMS_ITS | Encounter Summary ---
Author Organization [facility] Address [facility] [place] [address] Care Team Providers Care Soap Inspector Name Role Phone Bernadette Childs MD Primary Care Provider [phone] Encounter Details Date Type Department Care Team (Late st Contact Info) Description 06/18/2015 2:00 PM EDT Office Visit Cardiology at [address] [address] Cornelius Sullivan II, MD [facility] [place] [address] On potassium sparing diuretic therapy; Pericardial constriction Social History Tobacco Use Types Packs/Day Years [...] Sign Reading Time Taken Comments Blood Pressure 116/68 06/18/2015 1:40 PM EDT Pulse 86 06/18/2015 1:40 PM EDT Temperature - - Respiratory Rate - - Oxygen Saturation 95% 06/18/2015 1:40 PM EDT Inhaled Oxygen Concentration - - Weight 106.8 kg (235 lb 8 oz) 06/18/2015 1:40 PM EDT Height 157.5 cm (5' 2) 06/18/2015 1:40 PM EDT Body Mass Index 43.07 06/18/2015 1:40 PM EDT documented in this encounter Progress Notes * Cornelius Sullivan II - 06/22/2015 11:07 AM EDT Patient Name: Teresita Beltre : 1965 Age: 50 y.o. Date of Visit: 06-18-2015 Primary Care Physician: BERNADETTE CHILDS MD Problem [...] ??? Abnormal LFTs (liver function tests) I saw Teresita Beltre, in Cardiology Clinic on June 18, 2015. I last saw her in October and since then she has been doing reasonably well. She finally began exercising on a treadmill over the last 3-4 weeks. She can get up to 1.3 to 1.8 mph and maintain it for 15-30 minutes. She does get dyspnea, but she doesn't have to stop. She can climb more than two flights of stairs without stopping. She does still have some degree of ankle swelling, but it is mild and it is stable. Her weight is also stable. She denies any chest discomfort. Current medications: Current Outpatient Rx Name Route Sig Dispense Refill ??? furosemide (LASIX) 20 mg Tablet Oral Take 1 tablet by mouth daily. 90 tablet 3 Ins. requires #90 ??? insulin glargine (LANTUS SOLOSTAR) Insulin Pen Subcutaneous Inject 30 Units subcutaneously nightly. ??? LORazepam [...] needed. ??? traZODone (DESYREL) 100 mg tablet Oral Take 100 mg by mouth nightly. ??? spironolactone (ALDACTONE) 100 mg Tablet Oral Take 1 tablet by mouth daily. 90 tablet PRN ??? meTOPROLOL succinate (TOPROL-XL) 25 mg Tablet Sustained Release 24 hr Oral Take 1 tablet by mouth daily. 90 tablet 3 On physical exam, heart rate is 86 and regular. Blood pressure is 116/68. Chest is clear to auscultation. Cardiac exam reveals normal S1, S2, no murmur, rub or gallop is appreciated. Carotid upstrokes are normal. There are no carotid bruits. Jugular venous pressure is not elevated. Abdominal exam reveals obesity without clear organomegaly, masses or tenderness. Examination of the extremities reveals trace edema. Echocardiogram today: LVEF 75%. RV function is mildly reduced, estimated PA pressure 35, 1-2+ TR. No evidence of constrictive physiology. Assessment: 50-year-old female who is status-post pericardial stripping about two years ago who hashad some evidence of LV diastolic dysfunction, but has done well on low-dose Lasix and spironolactone, as well as low-dose beta marva. She is now exercising and I think this will improve her functional capacity. Plan: 1. Continue current medications. 2. Return to this clinic in one year. 3. Check BMP at the time of her next visit with you. Twenty minutes of this 30 minute visit was spent in face to face consultation with the patient. Cornelius Sullivan MD documented in this encounter Plan of Treatment Upcoming Encounters Date Type Department Care Team (Late st Contact Info) Description 09/14/2023 11:00 AM EDT Office [place] [address] Mague Johnson MD [facility] [place] [address] documented as of this encounter Results * (ABNORMAL) Basic Metabolic Panel (non-fasting) (05/12/2016 1:45 PM EDT) Glucose Lvl 134 65 - 199 mg/dL [facility] Comment:Diabetes: >=200 mg/d L plus symptoms BUN 14 8 - 18 mg/dL [facility] Creatinine 1.01 0.70 - 1.20 mg/dL [facility] Comment: Please note that the pediatric reference intervals supplied above were not validated at [facility]. Results from pediatric patients should be interpreted in conjunction to the patient's age, height and muscle mass. Sodium 140 135 - 145 mmol/L [facility] Potassium 4.5 3.5 - 5.0 mmol/L [facility] Comment: Please note: ??Patients with WBC >100,000 may have falsely elevated Potassium levels. ??For accurate Potassium quantification in these patients send serum separator tube (gold top) for subsequent determinations. ??Contact the Clinical Chemistry Laboratory if there are any questions. Chloride 100 98 - 107 mmol/L [facility] CO2 26 22 - 31 mmol/L [facility] Anion Gap 14 5 - 15 mmol/L [facility] Calcium 9.0 8.5 - 10.5 mg/dL [facility] Estimated GFR 58(L) >=60 [facility] Comment: This estimated GFR [...] the following links into your internet browser. [email or web address] Blood specimen (specimen) 05/12/2016 1:45 PM EDT 05/12/2016 1:47 PM EDT Narrative Resulting Agency Comment Spec In Lab Cornelius Sullivan II, MD CHEMISTRY ORDER DENISHA [facility] [place] [address] documented in this encounter Visit Diagnoses Diagnosis On potassium sparing diuretic therapy Pericardial constriction Constrictive pericarditis documented in this encounter Care Teams Soap Inspector Relationship Specialty Start Date End Date Bernadette Childs MD [address] [place] [address] PCP - General 04/03/12 07/27/20 documented as of this encounter
--- OUTSIDE RECORDS SUMMARY | 2023-09-06 01:40 | XMS_ITS | Encounter Summary ---
Author Organization [facility] Address [facility] [place] [address] Care Team Providers Care Fine Hairer Name Role Phone Bernadette Childs MD Primary Care Provider [phone] Reason for Visit * Reason Onset Date Comments Medication Refill 11/12/2014 Encounter Details Date Type Department Care Team (Late st Contact Info) Description 11/12/2014 Refill Cardiology at [address] [address] Cornelius Sullivan II, MD [facility] [place] [address] Medication Refill Social History Tobacco Use Types [...] 11:00 AM EDT Office [place] [address] Mague Johnson MD [facility] [place] [address] documented as of this encounter Visit Diagnoses Diagnosis Fluid retention Other fluid overload documented in this encounter Care Teams Fine Hairer Relationship Specialty Start Date End Date Bernadette Childs MD [address] [place] [address] PCP - General 04/03/12 07/27/20 documented as of this encounter
--- OUTSIDE RECORDS SUMMARY | 2023-09-06 01:40 | XMS_ITS | Encounter Summary ---
Author Organization [facility] Address [facility] [place] [address] Care Team Providers Care Remote Sensing Program Manager Name Role Phone Bernadette Childs MD Primary Care Provider [phone] Encounter Details Date Type Department Care Team (Late st Contact Info) Description 12/25/2013 Orders [place] [address] Nicko Larson MD [facility] [place] [address] Social History Tobacco Use Types Packs/Day Years [...] 11:00 AM EDT Office [place] [address] Mague Johnson MD [facility] [place] [address] documented as of this encounter Procedures Procedure Name Priority Date/Time Associated Diagnosis Comments FILM LIBRARY STORAGE ONLY CT CHEST Routine 12/25/2013 10:00 AM EST documented in this encounter Results * Film Library- Storage only CT Chest (12/25/2013 10:00 AM EST) Anatomical Region Laterality Modality Chest Other 12/25/2013 10:0 0 AM EST Narrative 12/26/2013 10:05 AM EST This is a Non-reportable exam Procedure Note DOUG, UNSIGNED REPORT - 12/26/2013 This is a Non-reportable exam Nicko Abdi MD IMG FILM LIBRARY OR DERABLES documented in this encounter Visit Diagnoses Not on filedocumented in this encounter Care Teams Remote Sensing Program Manager Relationship Specialty Start Date End Date Bernadette Childs MD [address] [place] [address] PCP - General 04/03/12 07/27/20 documented as of this encounter
--- OUTSIDE RECORDS SUMMARY | 2023-09-06 01:40 | XMS_ITS | Encounter Summary ---
Author Organization [facility] Address [facility] [place] [address] Care Team Providers Care Dock Manager Name Role Phone Bernadette Childs MD Primary Care Provider [phone] Encounter Details Date Type Department Care Team (Late st Contact Info) Description 02/05/2014 9:00 AM EST - 02/05/2014 11:59 PM [facility] Hospital Encounter XRay at [address] [place] [address] CLINIC, Cornelius Manuel II, MD [facility] C[place]IOLOGY [place] [address] FIGUEREDO (dyspnea on exertion) Discharge Disposition: Home [...] Pen Inject 35 Units subcutaneously nightly. 06/08/19 19 spironolactone (ALDACTONE) 100 mg Tablet Take 100 [...] Take 20 mg by mouth daily. 07/10/2014 pantoprazole (PROTONIX) 40 mg tablet Take 20 mg by mouth daily. 11/20/2014 traZODone (DESYREL) 100 mg tablet Take 100 mg by mouth nightly. 10/30/2021 documented as of this encounter Plan of Treatment Upcoming Encounters Date Type Department Care Team (Late st Contact Info) Description 09/14/2023 11:00 AM EDT Office [place] [address] Mague Johnson MD [facility] DR ENDOCRINOLOGY [place] [address] documented as of this encounter Procedures Procedure Name Priority Date/Time Associated Diagnosis Comments XR FLUORO WITH FILMS Routine 02/05/2014 9:33 AM EST FIGUEREDO (dyspnea on exertion) documented in this encounter Results * XR Fluoro with [...] the diaphragms independently under fluoroscopy. PA chest cash teller image was also obtained. FINDINGS: Patient Services Specialist PA chest radiograph shows streaky opacities at [...] and the diaphragms independentlyunder fluoroscopy. PA chest cash teller image was also obtained. FINDINGS: Patient Services Specialist PA chest radiograph shows streaky opacities at [...] abnormality documented in this encounter Care Teams Dock Manager Relationship Specialty Start Date End Date Bernadette Childs MD [address] [place] [address] PCP - General 04/03/12 07/27/20 documented as of this encounter
--- OUTSIDE RECORDS SUMMARY | 2023-09-06 01:40 | XMS_ITS | Encounter Summary ---
Author Organization [facility] Address [facility] [place] [address] Care Team Providers Care Account Services Associate Name Role Phone Bernadette Childs MD Primary Care Provider [phone] Encounter Details Date Type Department Care Team (Late st Contact Info) Description 11/20/2014 3:10 PM EDT Follow-Up Cardiology at [address] [address] Cornelius Sullivan II, MD [facility] [address] FIGUEREDO (dyspnea on exertion) Social History Tobacco [...] Sign Reading Time Taken Comments Blood Pressure 120/76 11/20/2014 2:58 PM EDT Pulse 81 11/20/2014 2:58 PM EDT Temperature - - Respiratory Rate - - Oxygen Saturation 96% 11/20/2014 2:58 PM EDT Inhaled Oxygen Concentration - - Weight 103.9 kg (229 lb) 11/20/2014 2:58 PM EDT Height - - Body Mass Index 41.88 07/10/2014 12:48 PM EDT documented in this encounter Progress Notes * Cornelius Sullivan II - 11/21/2014 4:12 PM EDT Patient Name: Teresita Beltre : 1965 Age: 49 y.o. Date of Visit: 11-20-2014 Primary Care Physician: BERNADETTE CHILDS MD (General) Problem List: Patient Active Problem List Diagnosis [...] function tests) I last saw Mrs. Beltre on July 10, 2014. At that time we had already discontinued her metoprolol and decided to stop her Lasix as well. We got an echo about two weeks later which demonstrated moderate to severe tricuspid regurgitation with a normal estimated PA pressure. The TR was new and was asso ciated with some RV chamber dilatation. Since the only changes we had made were stopping the Toproland Lasix, we decided to restart them. Since then, breathing continues to be an issue. She has been following up with Pulmonary and on thelast note it is assumed that either the thoracic cage or the lung (or both) has low compliance. Thereason for this is unclear. Unfortunately, she is not exercising regularly at this point. She does complain of fatigue and has not really grasped the idea that reconditioning herself is probably the only way that her dyspnea symptom will improve. She denies any chest pain. She denies PND or orthopnea. I would consider her Functional Capacity about II-III. Current Medications: Current Outpatient Rx Name Route Sig Dispense Refill ??? furosemide (LASIX) 20 mg Tablet Oral Take 1 tablet by mouth daily. 90 tablet 3 Ins. requires #90 ??? meTOPROLOL succinate (TOPROL-XL) 25 mg Tablet Sustained Release 24 hr Oral Take 1 tablet by mouth daily. 90 tablet 3 ??? insulin glargine (LANTUS SOLOSTAR) Insulin Pen Subcutaneous Inject 30 Units subcutaneously nightly. ??? spironolactone (ALDACTONE) 100 mg Tablet Oral Take 100 mg by mouth daily. ??? LORazepam (ATIVAN) 0.5 mg Tablet Oral Take 0.5 mg by mouth nightly. ??? LORazepam (ATIVAN) 0.5 mg Tablet Oral Take 0.5 mg by mouth every 6 hours as needed. ??? HYDROmorphone (DILAUDID) 2 mg tablet Oral Take 2 mg by mouth every 4 hours as needed. ??? traZODone (DESYREL) 100 mg tablet Oral Take 100 mg by mouth nightly. ??? FLUoxetine (PROZAC) 40 mg capsule Oral Take 1 capsule by mouth daily. On physical exam, heart rate is 81. Blood pressure is 120/76. Chest is clear to auscultation. Cardiac exam reveals normal S1, S2, no murmur, rub or gallop is appreciated. Carotid upstrokes are brisk.There are no carotid bruits. Jugular venous pressure is not elevated. Abdominal exam is significantfor obesity. There are no organomegaly, masses or tenderness. Examination of the extremities reveals no edema. Echocardiogram reviewed with Dr. Blanton shows decrease in RV dilatation and near resolution of the tricuspid regurgitation. LV function continues to be normal. There is no evidence of restriction. Assessment: 49-year-old female with a history of constrictive pericarditis, status-post stripping at [facility] about 16 months ago. She has improved, but has a persistent exertional dyspnea, which is probably multifactorial. She also has some LV diastolic dysfunction. Her symptoms are not improved, but her echo clearly looks better on Lasix, so I think this should continue along with the spironolactone. Her heart rate seems to be down on the low-dose beta marva. I have continued to urge her to exercise daily and gradually build up to something like a mile a day over about one-half hour. She apparently has been at this level in the past and is willing to try again. Plan: 1. Continue current medications. 2. Exercise program. 3. Follow up in this clinic in six months. Twenty minutes of this 30 minute visit was spent in face to face consultation with the patient. Cornelius Sullivan II, M.D. cc: Bernadette Childs M.D. documented in this encounter Plan of Treatment Upcoming Encounters Date Type Department Care Team (Late st Contact Info) Description 09/14/2023 11:00 AM EDT Office [place] [address] Mague Johnson MD [facility] [place] [address] documented as of this encounter Visit Diagnoses Diagnosis FIGUEREDO (dyspnea on exertion) Other dyspnea and respiratory abnormality documented in this encounter Care Teams Account Services Associate Relationship Specialty Start Date End Date Bernadette Childs MD [address] [place] [address] PCP - General 04/03/12 07/27/20 documented as of this encounter
--- OUTSIDE RECORDS SUMMARY | 2023-09-06 01:40 | XMS_ITS | Encounter Summary ---
Author Organization Formerly [facility], [facility] Address [facility] [place] [address] Care Team Providers Care Supplies Packer Name Role Phone Bernadette Childs MD Primary Care Provider [phone] Encounter Details Date Type Department Care Team (Late st Contact Info) Description 11/16/2013 11:10 AM EDT Follow-Up Cardiology at [address] [address] Cornelius Sullivan II, MD [facility] [address] FIGUEREDO (dyspnea on exertion) (Primary Dx) Discharge [...] Sign Reading Time Taken Comments Blood Pressure 102/70 11/16/2013 10:57 AM EDT Pulse 74 11/16/2013 10:57 AM EDT Temperature - - Respiratory Rate - - Oxygen Saturation 97% 11/16/2013 10:57 AM EDT Inhaled Oxygen Concentration - - Weight 97.5 kg (215 lb) 11/16/2013 10:57 AM EDT Height 157.5 cm (5' 2) 11/16/2013 10:57 AM EDT Body Mass Index 39.32 11/16/2013 10:57 AM EDT documented in this encounter Progress Notes * Cornelius Sullivan II - 11/20/2013 1:08 PM EDT Patient Name: Teresita Beltre : 1965 Age: 48 y.o. Date of Visit: 11-16-2013 Primary Care Physician: BERNADETTE CHILDS MD Problem [...] tests) I last saw Mrs. Beltre in July. Since that time, many of her problems have continued although sheis gradually improving. She has been using her incentive spirometer and has gone from 1,500 to 2,000. She has been walking and now can to a half mile in 20 minutes. She does have to stop to catch [email or web address] along the way, but she thinks this would be less so if she used constrictive pericarditis her inhaler before she started. She denies any exertional chest pain. She denies PND or orthopnea. She has put on 13 pounds since July and recently her spironolactone has been increased to 100 mg twice a day. After I saw her last week, she did get an echo which does not show any evidence of constriction. She has also had another chest x-ray over the summer which continues to show atelectasis. Current Medications: Current Outpatient Rx Name Route Sig Dispense Refill ??? LORAZEPAM 0.5 MG TABLET Oral Take 0.5 mg by mouth nightly. ??? LORAZEPAM 0.5 MG TABLET Oral Take 0.5 mg by mouth every 6 hours as needed. ??? FLUOXETINE 40 MG CAPSULE Oral Take 1 capsule by mouth daily. ??? HYDROMORPHONE 2 MG TABLET Oral Take 2 mg by mouth every 4 hours as needed. ??? FUROSEMIDE 20 MG TABLET Oral Take 20 mg by mouth daily. ??? INSULIN GLARGINE 100 UNIT/ML (3 ML) SUBCUTANEOUS PEN Subcutaneous Inject 15 Units subcutaneously nightly. ??? SPIRONOLACTONE 100 MG TABLET Oral Take 100 mg by mouth 2 times daily. ??? METOPROLOL SUCCINATE ER 25 MG TABLET,EXTENDED RELEASE 24 HR Oral Take 1 tablet by mouth daily. 30 tablet 12 ??? ALBUTEROL SULFATE 2.5 MG/3 ML (0.083 %) SOLUTION FOR NEBULIZATION Nebulization Take 2.5 mg by nebulization 3 times daily as needed. ??? PANTOPRAZOLE 40 MG TABLET,DELAYED RELEASE Oral Take 20 mg by mouth daily. ??? TRAZODONE 100 MG TABLET Oral Take 100 mg by mouth nightly. On physical exam, heart rate is 74 and regular. Blood pressure is 102/70. Chest is clear. I do not hear any basilar rales. Cardiac exam reveals normal S1 and S2. No rub, murmur, or gallop is appreciated. Carotid upstrokes are brisk. There are no carotid bruits. Jugular venous pressure cannot be assessed due to body habitus. Abdominal exam reveals obesity without clear organomegaly, masses, or tenderness. Examination of the extremities reveals no edema. Assessment: Nvklb-qxpjh-[id number]-old female with history of constrictive pericarditis, status post pericardial stripping back in April, who is having continued problems with her breathing which has been attributed to pulmonary atelectasis. Repeat echo has shown no evidence of constriction. She has seemed to have improved with diuretic therapy, but at this point, she seems to have plateaued. She does have a history of asthma, and it does not seem like she is using her bronchodilators to optimize effectiveness. She also has recently diagnosed adhesive capsulitis and is undergoing physical therapy. In addition, she has abnormal EMG on the same side, suggesting the possibility of a brachial plexus injury. Theapparently are being evaluated. Plan: 1. Arrange pulmonary function testing. 2. Consider pulmonary consultation pending those results. 3. Follow-up in this clinic in three months. Twenty minutes of this 30 minute visit was spent in face to face consultation with the patient. Communication sent to Bernadette Childs M.D. documented in this encounter Plan of Treatment Upcoming Encounters Date Type Department Care Team (Late st Contact Info) Description 09/14/2023 11:00 AM EDT Office [place] [address] Mague Johnson MD [facility] [place] [address] documented as of this encounter Results * [...] No Comment: Neena Tavares MD Pulmonary/Critical Care [facility] Procedure Note Neena Tavares MD - 11/27/2013 [...] No Comment: Neena Tavares MD Pulmonary/Critical Care [facility] Cornelius Sullivan II, MD PFT ORDERABLES documented in this encounter Visit Diagnoses Diagnosis FIGUEREDO (dyspnea on exertion)- Primary Other dyspnea and respiratory abnormality FIGUEREDO (dyspnea on exertion)- Primary Other dyspnea and respiratory abnormality documented in this encounter Care Teams Supplies Packer Relationship Specialty Start Date End Date Bernadette Childs MD [address] [place] [address] PCP - General 04/03/12 07/27/20 documented as of this encounter
--- OUTSIDE RECORDS SUMMARY | 2023-09-06 01:40 | XMS_ITS | Encounter Summary ---
Author Organization [facility] [place] [address] Care Team Providers Care Stone Polisher Name Role Phone Bernadette Childs MD Primary Care Provider Reason for Referral * Diagnostic Test (Routine) - Closed Specialty Diagnoses / Procedures Referred By Víctor thomas Referred To Contact Cardiology Diagnoses Constrictive pericarditis Procedures Echocardiogram Transthoracic(Leb) Cornelius Sullivan II, MD [facility] [place] [address] [facility] [place] [address] Referral ID Status Reason Start Date Expiration Date V isits Requested Visits Authorized [id number] Closed Specialty Service Requested 03/12/2016 03/12/2017 1 1 Encounter Details Date Type Department Care Team (Late st Contact Info) Description 03/12/2016 [place] [address] Cornelius Sullivan II, MD [facility] [place] [address] Constrictive pericarditis Social History Tobacco Use Types [...] 11:00 AM EDT Office [place] [address] Mague Johnson MD [facility] [place] [address] documented as of this encounter Results * ECHO COMPLETE (05/12/2016 1:49 PM EDT) EF 80 HEARTLAB SYSTEM Anatomical Region Laterality Modality Other 05/12/2016 Narrative 05/12/2016 2:34 PM EDT Procedure: ?Transthoracic Echocardiogram Patient: ?RUBA Ovalle ? (Age): 1965(50y) Med Rec#: ? [id number] ?Sex: ?F ? Site Loc: ? [facility] [place] ?Ht / Wt: ??157(cm)/106(kg) Pt. Loc: ?Echo Lab ?BSA: ?2.04 Study Date: ?? 05/12/2016 ?Pt. Type: Outpatient Tape: ? Referring: Cornelius Sullivan Reading: Woodrow Collado ([id number]) Consumer Product Advisor: Laurie Renae Diagnosis: *ICD-10-PCS Chronic constrictive pericarditis (I31.1) CPT Codes: *Echo Full (89851) *Spectral Doppler (65470) *Color Doppler (04060) BP: ? 120/80 SUMMARY: 1. Patient is [...] E-wave Vmax ?0.9 ?m/sec ? MV deceleration edpc355.2 ?msec ? MV A-wave Vmax ?0.7 ?m/sec [...] ? Mid-Inferior ?Normal ? Mid-Inferoseptal ?Normal ? [place]-Septal ? Normal ? [place]-Anterior ? Normal ? [place]-Lateral ?Normal ? [place]-Inferior ? Normal ? [place]-Tip ?Normal ? This report has been electronically signed by: Woodrow Collado M.D. ? 05/12/2016 14:33:34 Images reviewed and interpretation verified [facility] Cardiac Ultrasound Laboratory Procedure Note Woodrow Collado MD - 05/12/2016 Procedure: Transthoracic Echocardiogram Patient: RUBA Ovalle (Age): 1965(50y) Med Rec#: [id number] Sex: F Site Loc: [facility] [place] Ht / Wt: 157(cm)/106(kg) Pt. Loc: Echo Lab BSA: 2.04 Study Date: 05/12/2016 Pt. 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 Patient is status [...] MV E-wave Vmax 0.9 m/sec MV deceleration yucs178.2 msec MV A-wave Vmax 0.7 m/sec MV [...] Normal Mid-Posterolateral Normal Mid-Inferior Normal Mid-Inferoseptal Normal [place]-Septal Normal [place]-Anterior Normal [place]-Lateral Normal [place]-Inferior Normal [place]-Tip Normal This report has been electronically signed by: Woodrow oCllado M.D. 05/12/2016 14:33:34 Images reviewed and interpretation verified [facility] Cardiac Ultrasound Laboratory Cornelius Sullivan II, MD ECHO ORDERABLES documented in this encounter Visit Diagnoses Diagnosis Constrictive pericarditis Constrictive pericarditis documented in this encounter Care Teams Stone Polisher Relationship Specialty Start Date End Date Bernadette Childs MD [address] [place] [address] PCP - General 04/03/12 07/27/20 documented as of this encounter
--- OUTSIDE RECORDS SUMMARY | 2023-09-06 01:40 | XMS_ITS | Encounter Summary ---
Author Organization [facility] [place] [address] Care Team Providers Care Software Design Analyst Name Role Phone Bernadette Childs MD Primary Care Provider [phone] Encounter Details Date Type Department Care Team (Latest Contact Info) Description 11/20/2014 1:34 PM EDT - 11/20/2014 11:59 PM EDT Hospital Encounter Non-Invasive [place] [id number] Constrictive pericarditis Social History Tobacco Use Types [...] Date End Date furosemide (LASIX) 20 mg TabletIndications:Fl uid retention Take 1 tablet by mouth daily. 90 tablet 3 11/14/2014 07/16/2020 meTOPROLOL succinate (TOPROL-XL) 25 mg Tablet Sustained Release 24 hrIndications:Tachyc ardia, unspecified Take 1 tablet by mouth daily. 90 tablet 3 10/04/2014 06/18/2015 insulin glargine (LANTUS SOLOSTAR) Insulin Pen Inject [...] 11:00 AM EDT Office [place] [address] Mague Johnson MD [facility] [place] [address] documented as of this encounter Procedures Procedure Name Priority Date/Time Associated Diagnosis Comments ECHOCARDIOGRAM TRANSTHORACIC Routine 11/20/2014 2:17 PM EDT Constrictive pericarditis documented in this encounter Results * Echocardiogram Transthoracic(Leb) (11/20/2014 2:17 PM EDT) Anatomical Region Laterality Modality Other 11/20/2014 Narrative 11/20/2014 3:40 PM EDT Procedure: ?Transthoracic Echocardiogram Patient: ?RUBA Ovalle ? (Age): 1965(49y) Med Rec#: ? [id number] ?Sex: ?F ? Site Loc: ? [facility] [place] ?Ht / Wt: ??158(cm)/107(kg) Pt. Loc: ?Echo Lab ?BSA: ?2.06 Study Date: ?? 11/20/2014 ?Pt. Type: Outpatient Tape: ? 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 Sinus SUMMARY: 1. The left [...] E-wave Vmax ?0.6 ?m/sec ? MV deceleration bgft890.3 ?msec ? MV A-wave Vmax ?0.9 ?m/sec [...] ? Mid-Inferior ?Normal ? Mid-Inferoseptal ?Normal ? [place]-Septal ? Normal ? [place]-Anterior ? Normal ? [place]-Lateral ?Normal ? [place]-Inferior ? Normal ? [place]-Tip ?Normal ? This report has been electronically signed by: Saqib Balnton MD ? 11/20/2014 15:39:43 Images reviewed and interpretation verified [facility] Cardiac Ultrasound Laboratory Procedure Note Saqib Blanton MD - 11/20/2014 Procedure: Transthoracic Echocardiogram Patient: RUBA Ovalle (Age): 1965(49y) Med Rec#: [id number] Sex: F Site Loc: [facility] [place] Ht / Wt: 158(cm)/107(kg) Pt. Loc: Echo Lab BSA: 2.06 Study Date: 11/20/2014 Pt. 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 The left ventricular [...] MV E-wave Vmax 0.6 m/sec MV deceleration pzay616.3 msec MV A-wave Vmax 0.9 m/sec MV [...] Normal Mid-Posterolateral Normal Mid-Inferior Normal Mid-Inferoseptal Normal [place]-Septal Normal [place]-Anterior Normal [place]-Lateral Normal [place]-Inferior Normal [place]-Tip Normal This report has been electronically signed by: Saqib Blanton MD 11/20/2014 15:39:43 Images reviewed and interpretation verified [facility] Cardiac Ultrasound Laboratory Cornelius Sullivan II, MD ECHO ORDERABLES documented in this encounter Visit Diagnoses Diagnosis Constrictive pericarditis documented in this encounter Care Teams Software Design Analyst Relationship Specialty Start Date End Date Bernadette Childs MD [address] [place] [address] PCP - General 04/03/12 07/27/20 documented as of this encounter
--- OUTSIDE RECORDS SUMMARY | 2023-09-06 01:41 | XMS_ITS | Encounter Summary ---
Author Organization [facility] Address [facility] [place] [address] Care Team Providers Care Machine Icer Name Role Phone Bernadette Childs MD Primary Care Provider [phone] Encounter Details Date Type Department Care Team (Late st Contact Info) Description 03/19/2013 5:51 AM EST - 03/19/2013 2:08 PM EST Hospital Encounter [place] [address] Cornelius Sullivan II, MD [facility] [place] [address] Pericardial disease; Cardiac cirrhosis Discharge Disposition: Home Social History Tobacco Use [...] Sign Reading Time Taken Comments Blood Pressure 121/83 03/19/2013 12:58 PM EST Pulse 86 03/19/2013 12:58 PM EST Temperature 36.9 ??C (98.4 ??F) 03/19/2013 11:[address] Respiratory Rate 16 03/19/2013 12:58 PM EST Oxygen Saturation 94% 03/19/2013 12:58 PM EST Inhaled Oxygen Concentration - - Weight 86 kg (189 lb 9.5 oz) 03/19/2013 6:18 AM EST Height 157.5 cm (5' 2) 03/19/2013 6:18 AM EST Body Mass Index 34.68 03/19/2013 6:18 AM EST documented in this encounter Discharge Instructions * Discharge Instructions* Joanne Cooper, RN - 03/19/2013 12:47 PM EST Activity If you are discharged the same day as your procedure, do not drive yourself home. Arrange to have another person drive. You may walk around when you get home, but keep your activity at a minimum until the morning. Do not bend over, strain, or lift heavy objects for 24 hours after the procedure. Do not participate in active sports for 48 hours. You may engage in sexual activity after 48 hours. These restrictions will not apply if the catheter was placed in a blood vessel in your arm. Catheter Insertion Area Care Take the band-aid off the catheter insertion area the morning following the procedure. You may takea shower if you wish. Wash the area with soap and water. Look for signs of infection over the next several days. A little spot of blood at the catheter insertion area is not unusual. A bruise or small lump under the skin is normal; they generally disappear in 3-4 days. For the first several days at home if you cough or sneeze, hold your groin to help prevent bleeding. Expect some mild tenderness over the area where the catheter was inserted. You will notice this after the local anesthetic (numbing medicine) wears off. This should improve during the 24-48 hours after the procedure. Take tylenol if needed. Contact your doctor if the discomfort worsens. Problems to Watch For If there is bright red blood flowing from the catheter insertion area: *stop what you are doing and lie down *Hold pressure steadily on the area for 15 minutes *Call for Help *If the bleeding does not stop in 15 minutes call 911 for an ambulance. If there is swelling with black and blue color at the catheter insertion area, there may be bleeding inside. Contact the doctor if there is any increase in size. Look at the insertion site for the first few days at home. Signs of infection are: *redness *Swelling *Yellow, white, green or brown foul smelling drainage. *increased soreness If you think there is an infection, take your temperature. Then call your doctor. The limb on the side where you had your catheterization should look and feel normal in its color, sensation, and temperature. If your leg becomes cool, pale, blue or changing color with numbness and tingling, contact your doctor. If you feel faint or dizzy, lie down with your feet elevated. Have someone call the doctor. If you are alert, drink fluids. How to Deal with Chest pain If you had only the cardiac catheterization, treat any angina or chest discomfort as instructed. Stop what you are doing, and sit or lie down. If prescribed, take nitroglycerin under your tongue. If the angina isn't relieved, take another nitroglycerine in 5 minutes. After another 5 minutes, a third nitroglycerine may be taken. If the angina isn't improved you should call for an ambulance to bring you to the nearest hospital emergency room. If your angina is more frequent or more sever than before, contact your doctor. We usually would not expect to have angina after an angioplasty. If you do get angina, treat it as you did before but also contact your doctor. Return to Work The doctor will usually have told you when to return to work. If you do not perform heavy physical labor, most people can return to work in a few days. Diet Follow your previous diet unless otherwise instructed. Cardiac Risk Factors If you have coronary artery disease, it is important that you help control it by reducing your cardiac risk factors. If you smoke, we urge you to stop now. If you think this is going to be a problem,let us know so that we may help you. We have dieticians who can help you learn about low fat, low cholesterol diet. Cardiac rehabilitation programs can help you set up a regular exercise program. Work with your doctor if you have high blood pressure or sugar diabetes to keep these under control. Medications ____Take your usual medications ____Medication changes: If you are taking medicines prescribed by your doctor, do not take any wzaa-lls-fzymrru medicines or herbal preparations without first discussing this with your doctor or pharmacist. There is the possibility of side effect and interactions when these are combined. Follow up Care Who to Call with Questions or Problems If there are any questions or problems that you think might be related to your cardiac cath or angioplasty, contact the radiology specialist adult nurse practitioner by calling [facility] at . Activity If you are discharged the same day as your procedure, do not drive yourself home. Arrange to have another person drive. You may walk around when you get home, but keep your activity at a minimum until the morning. Do not bend over, strain, or lift heavy objects for 24 hours after the procedure. Do not participate in active sports for 48 hours. You may engage in sexual activity after 48 hours. These restrictions will not apply if the catheter was placed in a blood vessel in your arm. Catheter Insertion Area Care Take the band-aid off the catheter insertion area the morning following the procedure. You may takea shower if you wish. Wash the area with soap and water. Look for signs of infection over the next several days. A little spot of blood at the catheter insertion area is not unusual. A bruise or small lump under the skin is normal; they generally disappear in 3-4 days. For the first several days at home if you cough or sneeze, hold your groin to help prevent bleeding. Expect some mild tenderness over the area where the catheter was inserted. You will notice this after the local anesthetic (numbing medicine) wears off. This should improve during the 24-48 hours after the procedure. Take tylenol if needed. Contact your doctor if the discomfort worsens. Problems to Watch For If there is bright red blood flowing from the catheter insertion area: *stop what you are doing and lie down *Hold pressure steadily on the area for 15 minutes *Call for Help *If the bleeding does not stop in 15 minutes call 911 for an ambulance. If there is swelling with black and blue color at the catheter insertion area, there may be bleeding inside. Contact the doctor if there is any increase in size. Look at the insertion site for the first few days at home. Signs of infection are: *redness *Swelling *Yellow, white, green or brown foul smelling drainage. *increased soreness If you think there is an infection, take your temperature. Then call your doctor. The limb on the side where you had your catheterization should look and feel normal in its color, sensation, and temperature. If your leg becomes cool, pale, blue or changing color with numbness and tingling, contact your doctor. If you feel faint or dizzy, lie down with your feet elevated. Have someone call the doctor. If you are alert, drink fluids. How to Deal with Chest pain If you had only the cardiac catheterization, treat any angina or chest discomfort as instructed. Stop what you are doing, and sit or lie down. If prescribed, take nitroglycerin under your tongue. If the angina isn't relieved, take another nitroglycerine in 5 minutes. After another 5 minutes, a third nitroglycerine may be taken. If the angina isn't improved you should call for an ambulance to bring you to the nearest hospital emergency room. If your angina is more frequent or more sever than before, contact your doctor. We usually would not expect to have angina after an angioplasty. If you do get angina, treat it as you did before but also contact your doctor. Return to Work The doctor will usually have told you when to return to work. If you do not perform heavy physical labor, most people can return to work in a few days. Diet Follow your previous diet unless otherwise instructed. Cardiac Risk Factors If you have coronary artery disease, it is important that you help control it by reducing your cardiac risk factors. If you smoke, we urge you to stop now. If you think this is going to be a problem,let us know so that we may help you. We have dieticians who can help you learn about low fat, low cholesterol diet. Cardiac rehabilitation programs can help you set up a regular exercise program. Work with your doctor if you have high blood pressure or sugar diabetes to keep these under control. Medications ____Take your usual medications ____Medication changes: If you are taking medicines prescribed by your doctor, do not take any azfi-xff-pbaqusy medicines or herbal preparations without first discussing this with your doctor or pharmacist. There is the possibility of side effect and interactions when these are combined. Follow up Care Who to Call with Questions or Problems If there are any questions or problems that you think might be related to your cardiac cath or angioplasty, contact the radiology specialist adult nurse practitioner by calling [facility] at . documented in this encounter Medications at Time of Discharge Medication Sig Dispensed Refills Start Date End Date fluoxetine (PROZAC) 20 mg capsule Take 40 mg by mouth daily. 08/08/2013 HYDROmorphone (DILAUDID) 2 mg tabletIndications:Abdom inal pain, unspecified site Take 1-2 tablets by mouth every 4 hours as needed for Pain. 30 tablet 0 03/02/2013 03/22/2013 furosemide (LASIX) 20 mg tabletIndications:Edema Take 1 tablet by mouth daily. DIRECTED 30 tablet 11 03/02/2013 08/08/2013 spironolactone (ALDACTONE) 100 mg tablet Take 1 tablet by mouth daily. 90 tablet 1 02/22/2013 08/08/2013 albuterol (PROVENTIL HFA;VENTOLIN HFA) 90 mcg/actuation inhaler Inhale 2 puffs into the lungs every 4 hours as needed. Use with spacer 05/28/2013 LORazepam (ATIVAN) 1 mg tabletIndications:Restl ess legs syndrome (RLS) 1-2 tablets at bedtime 60 tablet 3 10/24/2012 10/24/2013 fluticasone-salmeterol (ADVAIR DISKUS) 250-50 mcg/dose diskus inhaler Inhale 1 puff into the lungs as needed. 05/28/2013 pantoprazole (PROTONIX) 40 mg tablet Take 20 mg by mouth daily. 11/20/2014 traZODone (DESYREL) 100 mg tablet Take 100 mg by mouth nightly. 10/30/2021 documented as of this encounter H&P Notes * Noam Bolanos - 03/19/2013 7:55 AM EST Cardiology Clinic Note Patient Name: Teresita Beltre Please see Dr. Sullivan note from 03/14 for full details. Briefly, this is a 47 yo woman with a historyof pericarditis starting two years ago who has had progressive symptoms of right-sided failure and has recently been diagnosed with probable cardiac cirrhosis. She is getting a R and L heart cath to eval for constriction vs restriction and eval of cors prior to possible surgery. She is w/o dyspnea, SOB, orthopnea, CP this a.m. Patient Active Problem List Diagnosis ??? Right heart failure ??? Cardiac cirrhosis ??? 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 Ascites ??? Abdominal pain, RUQ (right upper quadrant) ??? Abnormal LFTs (liver function tests) Past Surgical History Procedure Date ??? Colonoscopy ??? Upper gastrointestinal endoscopy ??? Lap, cholecystectomy/graph 02/19/2013 LAPAROSCOPIC CHOLECYSTECTOMY WITH CHOLANGIOGRAM performed by Octaviano Torrez MD at [facility] MA[facility] OR ??? Unlisted laparoscopic proc, liver 02/19/2013 LAPAROSCOPIC LIVER BIOPSY performed by Octaviano Torrez MD at [facility] MAIN OR Meds: No current facility-administered medications on file prior to encounter. Current Outpatient Prescriptions on File Prior to Encounter Medication Sig Dispense Refill ??? furosemide (LASIX) 20 mg tablet Take 1 tablet by mouth daily. DIRECTED 30 tablet 11 ??? spironolactone (ALDACTONE) 100 mg tablet Take 1 tablet by mouth daily. 90 tablet 1 ??? LORazepam (ATIVAN) 1 mg tablet 1-2 tablets at bedtime 60 tablet 3 ??? pantoprazole (PROTONIX) 40 mg tablet Take 40 mg by mouth daily. ??? traZODone (DESYREL) 100 mg tablet Take 150 mg by mouth nightly. ??? HYDROmorphone (DILAUDID) 2 mg tablet Take 1-2 tablets by mouth every 4 hours as needed for Pain. 30 tablet 0 ??? albuterol (PROVENTIL HFA;VENTOLIN HFA) 90 mcg/actuation inhaler Inhale 2 puffs into the lungs every 4 hours as needed. Use with spacer ??? fluticasone-salmeterol (ADVAIR DISKUS) 250-50 mcg/dose diskus inhaler Inhale 1 puff into the lungs as needed. History Social History ??? Marital Status: Spouse Name: N/A Number of Children: N/A ??? Years of Education: N/A Occupational History ??? Not on file. Social History Main Topics ??? Smoking status: Former Smoker -- 0.2 packs/day for 15 years Types: Cigarettes Quit date: 02/20/1996 ??? Smokeless tobacco: Never Used ??? Alcohol Use: No ??? Drug Use: No ??? Sexually Active: No Other Topics Concern ??? Not on file Social History Narrative ??? No narrative on file Family History Problem Relation Age of Onset ??? Type 1 Diabetes ??? Autoimmune Disorder Allergies Allergen Reactions ??? Latex Rash ??? Scopolamine Itching and Rash Itching erythematous rash resolved with scop patch removal. ??? Adhesive Bandage Localized Reaction ??? Amoxicillin Trihydrate Rash ??? Penicillins Rash ??? Sulfa (Sulfonamide Antibiotics) Rash Vitals: Last value Range last 24 hrs Temperature Temp: 36.5 ??C (97.7 ??F) Temp: [36.5 ??C (97.7 ??F)] Heart Rate Heart Rate: 88 Heart Rate: [88] Blood Pressure BP: 113/79 mmHg BP: (113)/(79) Respiratory Rate Resp: 18 Resp: [18] SpO2 SpO2: 97 % SpO2: [97 %] Examination: Gen: Pleasant, NAD, EOMI HEENT: Head AT/NC; JVP < 9 cm, + HJ reflex Cor: RRR s1 s2 no mrg Pulm: Basilar crackles b/l Abd: +HSM Extremities: Mild MEDHAT Laboratory: Recent Labs Basename 03/14/13 1528 WBC 8.4 HGB 13.4 HCT 40.7 PLATELET 298 Recent Labs Basename 03/14/13 1528 NA 141 K 4.3 CL 103 CO2 26 BUN 10 CREATININE 0.85 No results found for this basename: AST:3,ALT:3,ALKPHOS:3,BILITOT:3,BILIDIR:3 in the last 168 hours Recent Labs Basename 03/14/13 1528 CALCIUM 9.8 MAGNESIUM -- PHOS -- Recent Labs Basename 03/14/13 1528 INR 1.2* PT 15.4* PTT -- No results found for this basename: CK:3,TROPONINT:3 in the last 168 hours Plan: For L and R heart cath Consent in Chart Allergic to Latex Checklist and orders in Cr wnl INR 1.2 LMP in 2009 - so no need for test Noam Bolanos M.D. Roofing Sales Representative Pager: [phone] documented in this encounter Miscellaneous Notes * Miscellaneous - Provider, Scanning - 04/03/2013 9:11 AM EST * Miscellaneous - Provider, Scanning - 03/19/2013 5:29 PM EST * Miscellaneous - Provider, Scanning - 03/19/2013 9:11 AM EST documented in this encounter Plan of Treatment Upcoming Encounters Date Type Department Care Team (Late st Contact Info) Description 09/14/2023 11:00 AM EDT Office [place] [address] Mague Johnson MD [facility] [place] [address] documented as of this encounter Visit Diagnoses Diagnosis Pericardial disease Unspecified disease of pericardium Cardiac cirrhosis Cirrhosis of liver without mention of alcohol documented in this encounter Administered Medications Inactive Administered Medications - up to 3 most recent administrations Medication Order MAR Action Action Date Dose Rate Site diaZEPam (VALIUM) tablet 5 mg 5 mg, Oral, ONCE, 1 dose, On Tue03/19/13 at 0645, Cath (Day of Procedure), Routine Given 03/19/2013 7:51 AM EST 5 mg diphenhydrAMINE (BENADRYL) capsule 25 mg 25 mg, Oral, ONCE, 1 dose, On Tue03/19/13 at 0645, Cath (Day of Procedure), Routine Given 03/19/2013 7:52 AM EST 25 mg furosemide (LASIX) tablet 20 mg 20 mg, Oral, DAILY, First dose on Tue03/19/13 at 1200, Until Discontinued, Routine Given 03/19/2013 12:00 PM EST 20 mg spironolactone (ALDACTONE) tablet 100 mg 100 mg, Oral, DAILY, First dose on Tue03/19/13 at 1200, Until Discontinued, Routine Given 03/19/2013 12:00 PM EST 100 mg documented in this encounter Active and Recently Administered Medications Times are shown in EST. Scheduled Medication Order 03/17/2013 03/18/2013 03/19/2013 diaZEPam (VALIUM) tablet 5 mg (COMPLETED) 5 mg, Oral, ONCE, 1 dose, On Tue03/19/13 at 0645, Cath (Day of Procedure), Routine 0751 (Given - Provid er: Brie Trent RN) diphenhydrAMINE (BENADRYL) capsule 25 mg (COMPLETED) 25 mg, Oral, ONCE, 1 dose, On Tue03/19/13 at 0645, Cath (Day of Procedure), Routine 0752 (Given - Provid er: Brie Trent RN) furosemide (LASIX) tablet 20 mg (CANCELED) 20 mg, Oral, DAILY, First dose on Tue03/19/13 at 1200, Until Discontinued, Routine 1200 (Given - Provid er: Tamie Cruz RN) spironolactone (ALDACTONE) tablet 100 mg (CANCELED) 100 mg, Oral, DAILY, First dose on Tue03/19/13 at 1200, Until Discontinued, Routine 1200 (Given - Provid er: Tamie Cruz RN) PRN Medication Order 03/17/2013 03/18/2013 03/19/2013 fentaNYL 50mcg/mL injection (CANCELED) ONCE PRN, Starting on Tue03/19/13 at 0831, Until Tue03/19/13 at 1015, Pain, Cath (Intra-Procedure), Routine 0831 (Given - Provid er: Keron Deal)0853 (Given - Provider: Keron Deal) heparin (porcine) injection (CANCELED) ONCE PRN, Starting on Tue03/19/13 at 0901, Until Tue03/19/13 at 1015, Cath (Intra-Procedure), Routine 0901 (Given - Provid er: Cornelius Sullivan II) midazolam (PF) (VERSED) 1 mg/mL injection (CANCELED) ONCE PRN, Starting on Tue03/19/13 at 0831, Until Tue03/19/13 at 1015, Sleep, Cath (Intra-Procedure), Routine 0831 (Given - Provid er: Keron Deal)0853 (Given - Provider: Keron Deal) documented in this encounter Care Teams Machine Icer Relationship Specialty Start Date End Date Bernadette Childs MD [address] [place] [address] PCP - General 04/03/12 07/27/20 documented as of this encounter
--- OUTSIDE RECORDS SUMMARY | 2023-09-06 01:41 | XMS_ITS | Encounter Summary ---
Author Organization [facility] Address [facility] [place] [address] Care Team Providers Care Power Lineman Name Role Phone Bernadette Childs MD Primary Care Provider [phone] Encounter Details Date Type Department Care Team (Late st Contact Info) Description 03/20/2013 Orders Only Cardiology at [address] [address] Cornelius Sullivan II, MD [facility] [place] [address] Social History Tobacco Use Types Packs/Day Years [...] 11:00 AM EDT Office Visit [place] [address] Mague Johnson MD [facility] [place] [address] documented as of this encounter Visit Diagnoses Not on filedocumented in this encounter Care Teams Power Lineman Relationship Specialty Start Date End Date Bernadette Childs MD [address] [place] [address] PCP - General 04/03/12 07/27/20 documented as of this encounter
--- OUTSIDE RECORDS SUMMARY | 2023-09-06 01:41 | XMS_ITS | Encounter Summary ---
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 Mechanic Apprentice Name Role Phone Bernadette Childs MD Primary Care Provider [phone] Reason for Visit * Reason Onset Date Comments Other 03/26/2013 f/u to cardiac c ath Encounter Details Date Type Department Care Team (Late st Contact Info) Description 03/26/2013 Telephone Cardiology at [address] [address] Noam Bolanos MD [facility] [place] [place] [address] Other (f/u to cardiac cath) Social History Tobacco Use Types Packs/Day Years [...] encounter Miscellaneous Notes * Telephone Encounter - Mirna Gutierrez - 03/26/2013 2:42 PM EST The patient called Dr. Bolanos, who was involved in her cardiac catheterization of 03/19/13. The patient would like a call back from Dr. Bolanos or Dr. Sullivan. She states that the team was going to speak with CT Surgery, and Marie in regards to pericardial stripping surgery. She is quite anxious that someone call her back. Her phone number is [phone]. documented in this encounter Plan of Treatment Upcoming Encounters Date Type Department Care Team (Late st Contact Info) Description 09/14/2023 11:00 AM EDT [place] [address] Mague Johnson MD [facility] [place] [address] documented as of this encounter Visit Diagnoses Not on filedocumented in this encounter Care Teams Farm Equipment Mechanic Apprentice Relationship Specialty Start Date End Date Bernadette Childs MD [address] [facility] [address] [place] [address] PCP - General 04/03/12 07/27/20 documented as of this encounter
--- OUTSIDE RECORDS SUMMARY | 2023-09-06 01:41 | XMS_ITS | Encounter Summary ---
Author Organization [facility] [place] [address] Care Team Providers Care Competitive Shopper Name Role Phone Bernadette Childs MD Primary Care Provider [phone] Reason for Visit * Reason Comments Left Shoulder Pain URI Encounter Details Date Type Department Care Team (Latest Contact Info) Description 03/21/2013 12:45 AM EST - 03/22/2013 1:56 PM [facility] Hospital Encounter [address] [place] [address] Shannan Heard MD [facility] [place] [address] [place] [address] [place] [address] HAP (hospital-acquired pneumonia); Edema; Abdominal pain, unspecified site; Restless legs syndrome (RLS) Discharge Disposition: Home Social History Tobacco Use [...] Sign Reading Time Taken Comments Blood Pressure 96/65 03/22/2013 12:11 PM EST Pulse 92 03/22/2013 12:11 PM EST Temperature 36.5 ??C (97.7 ??F) 03/22/2013 12:[address] Respiratory Rate 20 03/22/2013 12:11 PM EST Oxygen Saturation 97% 03/22/2013 7:58 AM EST Inhaled Oxygen Concentration - - Weight 86.8 kg (191 lb 6.4 oz) 03/22/2013 8:57 A M EST Height 157.5 cm (5' 2) 03/21/2013 5:02 AM EST Body Mass Index 35.01 03/21/2013 5:02 AM EST documented in this encounter Discharge Instructions * Discharge Instructions* Gaudencio Kim MD - 03/22/2013 10:40 AM EST About your Diabetes You should follow up with your doctor to discuss your diabetes care and your Hemoglobin-A1C. Patients with diabetes benefit from having their blood sugar values kept in a well-controlled range. The Hemoglobin-A1C test can check your overall control and may be able to direct the care of your diabetes. Review of our records indicates that you have not had a Hemoglobin-A1C result in our system in the last nine months. You should follow up with your doctor to discuss obtaining this test. * Patient Instructions* Gaudencio Kim MD - 03/22/2013 10:25 AM EST Instruction after leaving the hospital Why you were hospitalized: Pneumonia Call your doctor or seek medical attention if you develop the following: Fever, chills, worsening shortness of breath, worsening chest pain/pressure, or any other worrisome symptom Activity level: As usual Diet: Low carbohydrate diet Driving: NO driving at all while taking narcotic pain relievers Shower/Bath: As usual Specific instructions related to your condition: Please ensure you complete all your antibiotics as prescribed. Please avoid any dairy, multivitamins or other foods/drinks with calcium/magnesium/iron in them for two hours before and after taking levofloxacin. Please continue to take all inhaled therapies as ordered. Please consider taking miralax as ordered to avoid constipation. You should be receiving correspondence from [facility] in the near future for further management of your cardiac problems. Please take fluconazole as needed for yeast infection. Follow-Up Appointments Date and Time Provider and Specialty Location Tuesday, March 26, 2013 @ 4:15pm Dr. Childs, Internal Medicine [facility] Your Inpatient Doctor(s) at [facility]: Gaudencio Kim MD * Attachments The following attachments cannot be sent through Care Everywhere. * LIMITING SODIUM AND FLUIDS WITH HEART FAILURE: AFTER YOUR VISIT ([place]) * PNEUMONIA IN ADULTS: AFTER YOUR VISIT ([place]) documented in this encounter Medications at Time of Discharge Medication Sig Dispensed Refills Start Date End Date levofloxacin (LEVAQUIN) 750 mg tablet Take 1 tablet by mouth every morning for 7 days. 7 tablet 0 03/22/2013 03/29/2013 polyethylene glycol (MIRALAX) 17 gram packet Take 17 g by mouth 2 times daily as needed (constipation) for 3 days. 14 each 03/22/2013 03/25/2013 fluconazole (DIFLUCAN) 150 mg tablet Take 1 tablet by mouth once for 1 dose. 1 tablet 0 03/22/2013 03/22/2013 diphenhydrAMINE (BENADRYL) 25 mg capsule Take 1-2 capsules by mouth every 6 hours as needed for Itching. 30 capsule 03/22/2013 05/28/2013 hydromorphone (DILAUDID) 4 mg tabletIndications:Abdom inal pain, unspecified site Take 1 tablet by mouth every 4 hours as needed for Pain. 20 tablet 0 03/22/2013 10/02/2013 fluoxetine (PROZAC) 20 mg capsule Take 40 mg by mouth daily. 08/08/2013 furosemide (LASIX) 20 mg tabletIndications:Edema Take 1 [...] nightly. 10/30/2021 documented as of this encounter Progress Notes * Christy Walsh RN - 03/22/2013 1:58 PM EST Patient alert and oriented times four, vital signs stable. Patient's lung sounds are clear but verydiminished throughout. Upon initial assessment, patient's oxygen saturation in the high 90's on 3 liters nasal cannula. Night nurse reported that patient was using nasal cannula more for comfort. Physician recommended that we ambulate the patient while getting an oxygen saturation on room air. The patient's oxygen saturation ranged from 91%-94% with ambulation on room air. She did need to stop a couple of times reporting she felt short of breath and wobbly or dizzy but remained on room air after activity. She has been ambulating to and from the bathroom independently voiding clear to hazy ye llow urine and received Miralax this morning to promote a bowel movement. The patient does report a 6 out of 10 pain in her left upper back/scapula region and reports a 0 out of 10 is a tolerable level for her. She describes this pain as a frequent pain which is worsened by deep breaths and ambulation. The patient has been requesting her PRN Dilaudid appropriately and reports some relief from this. Physician reported patient was ready for discharge. AVS reviewed, care p denise teaching and discharge education performed with significant other at the bedside, patient and spouse verbalize understanding. Remote monitoring manager and IV removed. Dilaudid prescription given to patient and patient discharged home with family. * Chelsea Bautista RN - 03/22/2013 10:49 AM EST Office of Care Management Progress Note Record reviewed and patient discussed with multidisciplinary team. No discharge needs identified atthis time. CRC remains available as needed for coordination of care and discharge planning. CRC Chelsea CHAUDHRY, RN, pager [phone] * Gaudencio Kim MD - 03/22/2013 10:41 AM EST Hospital Medicine - Attending Day of Discharge Documentation Discharge diagnosis Active Hospital Problems Diagnosis ??? HCAP (healthcare-associated pneumonia) ??? Chronic diastolic congestive heart failure ??? SOB (shortness of breath) ??? Chest pain ??? Fever Resolved Hospital Problems Diagnosis Date Resolved No resolved problems to display. Secondary Issues Active Non-Hospital Problems Diagnosis ??? HCAP (healthcare-associated pneumonia) ??? SOB (shortness of breath) ??? Chest pain ??? Fever ??? Chronic right-sided heart failure ??? Cardiac cirrhosis ??? 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 Ascites ??? Abdominal pain, RUQ (right upper quadrant) ??? Abnormal LFTs (liver function tests) I have personally seen and examined the patient and they are ready for discharge. Select the appropriate statement that describes your involvement and care and omit the other: I spent >30 minutes (Day of Discharge Code 00355) involved in the final examination of the patient, discussion of the hospital stay, instructions for continuing care to all relevant caregivers, and preparation of discharge records, prescriptions and referral forms. Plans Discharge to home Follow-up scheduled with PCP Please see the Discharge Summary for complete details of any medication changes and additional plans. * Regla Lema RN - 03/22/2013 5:29 AM EST Patient Name:Teresita Beltre [address] Telemetry Note Diagnosis r/t telemetry: chest pain Subjective: It hurts when I breathe Objective: No complaints of chest pain, nausea, dizziness BP 110/70 Pulse 82 Temp 36.8 ??C (98.2 ??F) (Oral) Resp 24 Ht 157.5 cm (5' 2) Wt 86.093 kg (189 lb 12.8 oz) BMI 34.71 kg/m2 SpO2 94% Scheduled Meds: ??? [COMPLETED] fluconazole 150 mg Oral Once ??? fluoxetine 40 mg Oral Daily ??? furosemide 20 mg Oral Daily ??? lorazepam 1 mg Oral Nightly ??? spironolactone 100 mg Oral Daily ??? trazodone 150 mg Oral Nightly ??? esomeprazole 40 mg Oral Daily ??? sodium chloride 0.9 % 5 mL Intravenous BID ??? enoxaparin 40 mg Subcutaneous Daily ??? insulin aspart 1-4 Units Subcutaneous Q4H YULIET ??? fluticasone-salmeterol 2 puff Inhalation Q12H YULIET ??? levofloxacin in D5W 750 mg Intravenous Q24H ??? [DISCONTINUED] piperacillin-tazobactam 3.375 g Intravenous Q8H ??? [DISCONTINUED] vancomycin 1 g Intravenous Q8H ??? [DISCONTINUED] vancomycin 1 g Intravenous Q12H ??? [DISCONTINUED] Vancomycin Level - MAR Order Reminder NOT APPLICABLE Once Continuous Infusions: PRN Meds:.hydromorphone, ipratropium-albuterol, dextrose 50%, glucagon (human recombinant), diphenhydrAMINE, [DISCONTINUED] Vancomycin Level - MAR Order Reminder Assessment: NSR to NST, HR 75-105. No PVCs. No chest pain, nausea, dizziness. Plan: continue tele monitoring, assess hemodynamic tolerance of dysrythmia, see tele strip (attached) * Homa Rosario RN - 03/21/2013 5:53 PM EST Patient Name:Teresita Beltre [address] Telemetry Note Diagnosis r/t telemetry: Chest pain Subjective: I am feeling better compared to last night. Objective: No complaints of chest pain/lightheadedness/dizziness. Pt states she is FIGUEREDO wearing 2 L NC for comfort. See care plan note. Last value Range last 12 hrs Temperature Temp: 36.9 ??C (98.4 ??F) Temp: [36.4 ??C (97.5 ??F)-36.9 ??C (98.4 ??F)] Heart Rate Heart Rate: 89 Heart Rate: [83-89] Blood Pressure BP: 101/69 mmHg BP: (94-108)/(61-70) Respiratory Rate Resp: 19 Resp: [19-20] SpO2 SpO2: 92 % SpO2: [92 %-95 %] Cardiac meds: See MAR Assessment: SR/ST RH 75-105. Plan: continue tele monitoring, assess hemodynamic tolerance of dysrythmia, see tele strip (attached) * Danni Tanner RN - 03/21/2013 4:30 PM EST Office of Care Management (OCM) / Clinical Cinema Operator (CRC)/ Initial Assessment Discussed patient with Provider Team and in multidisciplinary discharge-planning rounds. Reviewed record and interviewed patient. Introduced/reviewed CRC role and services accepted. I wrote my name and pager number on the pt's white board. REASON for HOSPITALIZATION: HAP (hospital-acquired pneumonia) PMH Diabetes mellitus ??? Pericarditis ??? Hyperlipidemia ??? Obesity ??? Anxiety ??? Depression ??? Cardiac cirrhosis PREVIOUS FUNCTIONAL STATUS: Cognitively and physically independent; lives with her in [place], [place]. CURRENT FUNCTIONAL STATUS: Pt OOB to the shower during my visit; in room. SOCIAL / FAMILY SUPPORTS: Jace Beltre, , DPPARISH, , Ira Beltre, . ADVANCE DIRECTIVES: On file in eDH; with named as DPOACarlito. HEALTH /PRESCRIPTION COVERAGE: (1) Natl [employer] PPO. CURRENT HOME/COMMUNITY SERVICES/EQUIPMENT: DME: None Home Health Agency: None Other: None COUNSELOR MARRIAGE AND FAMILY REFERRAL: Not currently indicated. PRIMARY CARE PHYSICIAN: BERNADETTE CHILDS MD [address] [place] [id number] POTENTIAL DISCHARGE NEEDS: None recognized during this visit. PATIENT/FAMILY EDUCATION NEEDS: As determined by the pt's healthcare team. ANTICIPATED BARRIERS TO DISCHARGE: None TRANSPORTATION @ D/C: Pt's . PLAN: Myself or a fellow CRC will continue to monitor progress, follow for continuity of care and assist with discharge planning while hospitalized. Danni Tanner CARDIAC NURSE Clinical Cinema Operator Office of Care Management Phone: [phone] * Regla Lema RN - 03/21/2013 7:33 AM EST Patient Name:Teresita Beltre [address] Telemetry Note Diagnosis r/t telemetry:chest pain Subjective: I'm not feeling short of breath Objective: No complaints of SOB, chest pain, nausea, dizziness BP 121/85 Pulse 85 Temp 37 ??C (98.6 ??F) (Oral) Resp 24 Ht 157.5 cm (5' 2) Wt 86.093 kg(189 lb 12.8 oz) BMI 34.71 kg/m2 SpO2 95% Scheduled Meds: ??? [COMPLETED] diphenhydrAMINE 50 mg Oral Once ??? [COMPLETED] piperacillin-tazobactam 4.5 g Intravenous Once ??? [COMPLETED] vancomycin in Dextrose 1 g Intravenous Once ??? fluconazole 150 mg Oral Once ??? fluoxetine 40 mg Oral Daily ??? furosemide 20 mg Oral Daily ??? lorazepam 1 mg Oral Nightly ??? spironolactone 100 mg Oral Daily ??? trazodone 150 mg Oral Nightly ??? esomeprazole 40 mg Oral Daily ??? piperacillin-tazobactam 3.375 g Intravenous Q8H ??? sodium chloride 0.9 % 5 mL Intravenous BID ??? enoxaparin 40 mg Subcutaneous Daily ??? insulin aspart 1-4 Units Subcutaneous Q4H YULIET ??? fluticasone-salmeterol 2 puff Inhalation Q12H YULIET ??? vancomycin 1 g Intravenous Q12H ??? [DISCONTINUED] fluconazole 150 mg Oral Daily ??? [DISCONTINUED] fluticasone-salmeterol 1 puff Inhalation BID ??? [DISCONTINUED] vancomycin 1 g Intravenous Q8H Continuous Infusions: PRN Meds:.hydromorphone, ipratropium-albuterol, Vancomycin Level - MAR Order Reminder, dextrose 50%, glucagon (human recombinant) Assessment: Pt in NSR, heart rate in 80s. No PVCs. Will continue to monitor. Plan: continue tele monitoring, assess hemodynamic tolerance of dysrythmia, see tele strip (attached) * Regla Lema RN - 03/21/2013 5:00 AM EST Patient admitted to [facility] from the ED. Pt ambulated from stretcher to bed w/ 1- assist due to pain in R groin from cardiac cath incision. 95% on RA. Pt stated oxygen helped her deep breathe - oxygen applied for comfort. Pt c/o R shoulder pain and was medicated with 4mg PO Dilaudid. Pt upset this wasn't in IV form. Educated pt on pain management. documented in this encounter H&P Notes * Desire Mendez MD - 03/21/2013 4:19 AM EST Inpatient Hospital Medicine - Admission Note Problem List: Active Hospital Problems Diagnosis ??? HAP (hospital-acquired pneumonia) ??? SOB (shortness of breath) ??? Chest pain ??? Fever Resolved Hospital Problems Diagnosis Date Resolved No resolved problems to display. Active Non-Hospital Problems Diagnosis ??? Right heart failure ??? Cardiac cirrhosis ??? 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 Ascites ??? Abdominal pain, RUQ (right upper quadrant) ??? Abnormal LFTs (liver function tests) ID: 47 y.o. Female presents to [facility] with SOB History of Present Illness: Shortness of Breath This is a chronic problem. The current episode started more than 1 year ago (but worse in the past 12-24 hrs). The problem occurs intermittently. The problem has been gradually worsening. Associated symptoms include chest pain (shoulder/ back on left side, worse with cough and deep breath), ear pain (left), a fever (100.5, with chills), headaches, orthopnea and PND. Pertinent negatives include nohemoptysis, leg pain, leg swelling, neck pain, rash, rhinorrhea, sore throat, sputum production, syncope, vomiting or wheezing. The symptoms are aggravated by any activity, lying flat and emotional upset. Associated symptoms comments: Dry cough on-off for the past year but worse in the past 24hrs..Treatments tried: tums, heat pad and dilaudid for pain. The treatment provided mild relief. There is no history of asthma, COPD or pneumonia. (Pericartitis a year ago, recent hospitalized for gallbladder surgery and catheterism. inthe past month) In the CXR suggestive of pneumonia, zosyn and vanco given. Review of Systems: Review of Systems Constitutional: Positive for fever (100.5, with chills), chills, activity change (decreased), appetite change, fatigue and unexpected weight change (lost). HENT: Positive for ear pain (left). Negative for congestion, sore throat, rhinorrhea, neck pain andpostnasal drip. Eyes: Negative. Respiratory: Positive for cough (dry) and shortness of breath. Negative for hemoptysis, sputum production, chest tightness and wheezing. Cardiovascular: Positive for chest pain (shoulder/ back on left side, worse with cough and deep breath), orthopnea and PND. Negative for palpitations, leg swelling and syncope. Gastrointestinal: Negative. Negative for vomiting. Genitourinary: Negative. Musculoskeletal: Positive for arthralgias. Skin: Negative for pallor and rash. Neurological: Positive for headaches. Negative for dizziness, syncope and light-headedness. Hematological: Negative. Psychiatric/Behavioral: Negative. Past Medical and Surgical History: Past Medical History Diagnosis Date ??? Diabetes mellitus ??? Pericarditis ??? Hyperlipidemia ??? Obesity ??? Anxiety ??? Depression ??? Cardiac cirrhosis Past Surgical History Procedure Date ??? Colonoscopy ??? Upper gastrointestinal endoscopy ??? Lap, cholecystectomy/graph 02/19/2013 LAPAROSCOPIC CHOLECYSTECTOMY WITH CHOLANGIOGRAM performed by Octaviano Torrez MD at [facility] MAIN OR ??? Unlisted laparoscopic proc, liver 02/19/2013 LAPAROSCOPIC LIVER BIOPSY performed by Octaviano Torrez MD at [facility] MAIN OR ??? Cholecystectomy Prior To Admission Medications: (Not in a hospital admission) Allergies: Allergies Allergen Reactions ??? Latex Rash ??? Scopolamine Itching and Rash Itching erythematous rash resolved with scop patch removal. ??? Adhesive Bandage Localized Reaction ??? Amoxicillin Trihydrate Rash ??? Penicillins Rash ??? Sulfa (Sulfonamide Antibiotics) Rash Family History: Family History Problem Relation Age of Onset ??? Type 1 Diabetes ??? Autoimmune Disorder ??? Heart Disease Mother ??? Cerebrovasular Accident Mother 64 ??? Diabetes Mother ??? Diabetes Sister ??? Arthritis Sister ??? Arthritis Brother ??? Diabetes Brother ??? Arthritis Brother ??? Diabetes Brother ??? Diabetes Brother Social History and Habits: History Social History ??? Marital Status: Spouse [...] History Narrative ??? No narrative on file Immunizations: Immunization History Administered Date(s) Administered ??? Td 02/01/2005 Physical Exam: Last Set of Vitals and range of vitals over past 24 hours: Last value Range last 24 hrs Temperature Temp: 37.3 ??C (99.1 ??F) Temp: [37.3 ??C (99.1 ??F)] Heart Rate Heart Rate: 86 Heart Rate: [82-107] Blood Pressure BP: 101/74 mmHg BP: (98-136)/(48-87) Respiratory Rate Resp: 24 Resp: [17-39] SpO2 SpO2: 98 % SpO2: [93 %-99 %] Physical Exam Constitutional: She is oriented to person, place, and time. She appears well- developed and well-nourished. No distress. HENT: Head: Normocephalic and atraumatic. Mouth/Throat: No oropharyngeal exudate. Eyes: Pupils are equal, round, and reactive to light. No scleral icterus. Neck: Normal range of motion. Neck supple. JVD (5cm) present. Cardiovascular: Normal rate and regular rhythm. Exam reveals distant heart sounds. Exam reveals no friction rub. Pulmonary/Chest: Effort normal. She has decreased breath sounds in the right lower field and the left lower field. She has no wheezes. She has no rhonchi. She has no rales. Abdominal: Soft. Bowel sounds are normal. She exhibits no distension. There is no tenderness. Musculoskeletal: She exhibits edema (1+ b/l legs). Neurological: She is alert and oriented to person, place, and time. Skin: No rash noted. She is not diaphoretic. No pallor. Psychiatric: Her behavior is normal. Judgment normal. Laboratory (Last 24 Hours): Recent Results (from the past 24 hour(s)) BLUE TUBE HOLD Component Value Range Blue Hold Sample in lab. CARDIAC ENZYMES Component Value Range Troponin-T <0.03 <=0.03 ng/mL CK, Total 26 0 - 160 unit/L CBC (WITH DIFF) Component Value Range WBC 13.0 (*) 4.0 - 10.0 x10(3)/mcL RBC 5.34 (*) 3.93 - 5.22 x10(6)/mcL Hemoglobin 13.6 11.2 - 15.7 gm/dL Hematocrit 40.5 34.0 - 45.0 % MCV 75.8 (*) 79.0 - 94.0 fL MCH 25.5 (*) 26.6 - 32.2 pg MCHC 33.6 32.0 - 36.5 gm/dL Platelets 254 145 - 370 x10(3)/mcL RDWSD 46.9 (*) 35.0 - 46.0 fL RDWCV 16.9 (*) 10.9 - 14.4 % MPV 10.7 9.0 - 12.0 fL BASIC METABOLIC PANEL (NON-FASTING) Component Value Range Glucose Lvl 135 60 - 199 mg/dL BUN 7 (*) 8 - 18 mg/dL Creatinine 0.87 0.70 - 1.20 mg/dL Sodium 136 135 - 145 mmol/L Potassium 4.4 3.5 - 5.0 mmol/L Chloride 100 98 - 107 mmol/L CO2 23 22 - 31 mmol/L Anion Gap 13 5 - 15 mmol/L Calcium 9.5 8.5 - 10.5 mg/dL Estimated GFR >60 >=60 DIFFERENTIAL, AUTOMATED Component Value Range Neutrophils % 75.7 (*) 34.0 - 71.0 % Neutr Abs (ANC) 9.84 (*) 1.50 - 6.30 x10(3)/mcL Lymphocytes % 14.1 (*) 19.0 - 53.0 % Lymphocytes Abs 1.8 1.0 - 3.6 x10(3)/mcL Monocytes % 8.9 4.0 - 13.0 % Monocyte Abs 1.2 (*) 0.2 - 1.0 x10(3)/mcL Eosinophils % 0.9 0.0 - 7.0 % Eosinophils Abs 0.1 0.0 - 0.5 x10(3)/mcL Basophils % 0.2 0.0 - 2.0 % Basophils Abs 0.0 0.0 - 0.2 x10(3)/mcL Immature Gran % 0.20 0.00 - 0.66 % Ashley Gran Abs 0.02 0.00 - 0.05 x10(3)/mcL Radiology: CXR - Findings The right lung is clear. There is a new ill defined hazy opacity involving the left lower lobe which obscures the left hemidiaphragm. On the lateral view, there is a patchy opacity overlies the mid thoracic vertebrae. No effusions or pneumothorax. Cardiomediastinal silhouette is within normal limits. Pulmonary vasculature is symmetric. There are mild degenerative changes of the thoracolumbar spine, unchanged. Impression Findings are consistent with left lower lobe pneumonia. 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 She has been hospitalized recently in for cholecystectomy and on Tuesday for catheterization. She comes at this time with worsening of SOB, cough, pleuritic chest pain and fever. She was found to have CXR suggestive of LLL PNA. She is being admitted for Hospital acquired pneumonia. Plan: ?? Admit to hospital medicine ?? Zosyn and Vanco ?? Dropplet precaution ?? Monitor saturation ?? Duoneb prn ?? Keep patient on oxygen NC prn to maintain saturation >92% ?? Physical Therapy referral ?? DVT Prophylaxis ?? If currently a smoker - advised about smoking cessation and will provide smoking cessation material and support. ?? Pneumovax and Influenza Immunizations given as needed. ?? Discussed Advanced Directives and Code Status. The patient wishesto be Full Code. A copy of this document will be sent to the patient's Primary Care Physician and/or Referring Physician. DESIRE MENDEZ MD 03/21/2013 documented in this encounter Procedure Notes * Provider, Scanning - 03/23/2013 9:25 AM ESTAssociated Order(s): SCAN DOC: CROWN PRESSER documented in this encounter ED Notes * Elana Huffman RN - 03/21/2013 4:37 AM EST Report called. Pt premised. * Elana Huffman RN - 03/21/2013 4:[address] Mendez assessing pt at this time. * Elana Huffman RN - 03/21/2013 2:30 AM EST Pt was given benadryl with zoysn d/t penicillin allergy. Pt denies itching or any allergy symptoms.Vital signs remain stable. Pt given warm blankets. * Elana Huffman RN - 03/21/2013 1:00 AM EST Pt receiving IV antibiotics. VSS. Pt ambulated to bathroom without difficulty. Will continue to monitor. * Shannan Heard MD - 03/20/2013 11:12 PM EST Teresita Beltre is an 47 y.o. female who presents to the ED with: Chief Complaint Patient presents with ??? Left Shoulder Pain ??? URI I saw this patient 03/20/2013 at 11:12 PM HPI Teresita Beltre is a 47 y.o. female with PMH sig for cardiac cath recently,congestive liver failure due to restrictive r sided heart failure, history of pericarditis, and cholecystectomy 1 month ago who presents to the Emergency Department with fevers, cough, and L sidedshoulder pain. Patient reportsdeveloped cough today, nonproductive, no hemoptysis. Also throat irritation that feels like egg inthroat. Denies congestion, rhinnorhea. Reports fever to 100.8 today, but in [facility] recent procedure, patient wanted to come in and be checked out. L shoulder pain started this AM, subscapular, chris kong felt like she slept on it wrong, and has been highly positional, worsening with raising arm above head, but also worse with deep breath, sharp, moderate, improved with rest. Patietn with shortness of breath at baseline from her cardiac history, that may be slightly worsened. Denies palps. Denies n/v/d/c/abd pain. Review of Systems: Review of Systems Constitutional: Positive for fever and chills. Negative for diaphoresis. HENT: Negative for congestion, sore throat, rhinorrhea, neck pain and neck stiffness. Respiratory: Positive for cough and shortness of breath. Negative for chest tightness, wheezing andstridor. Cardiovascular: Positive for leg swelling. Negative for chest pain. Chronic b/l lower extremity edema Gastrointestinal: Negative for nausea, vomiting, abdominal pain, diarrhea and constipation. Genitourinary: Negative for dysuria, urgency and frequency. Musculoskeletal: Negative for myalgias and arthralgias. Skin: Negative for pallor and rash. Psychiatric/Behavioral: Negative for confusion and agitation. Physical Exam: Patient Vitals for the past 24 hrs: BP Temp Temp src Pulse Resp SpO2 03/20/13 2245 98/48 mmHg - - 96 20 97 % 03/20/13 2230 111/71 mmHg - - 93 17 97 % 03/20/13 2215 118/78 mmHg - - 100 22 97 % 03/20/13 2200 123/83 mmHg 37.3 ??C (99.1 ??F) Oral 97 32 93 % 03/20/13 2145 130/76 mmHg - - 101 23 - 03/20/132135 - - - 107 39 - 03/20/132134 136/87 mmHg - - - - - Physical Exam Constitutional: She appears well-developed and well-nourished. No distress. HENT: Mouth/Throat: Oropharynx is clear and moist. No oropharyngeal exudate. Eyes: Conjunctivae normal are normal. Neck: Normal range of motion. Neck supple. No tracheal deviation present. Cardiovascular: Normal rate, regular rhythm, normal heart sounds and intact distal pulses. Exam reveals no gallop and no friction rub. No murmur heard. Pulmonary/Chest: Effort normal and breath sounds normal. No respiratory distress. She has no wheezes. She has no rales. Decreased breath sounds on LLL Abdominal: Soft. Bowel sounds are normal. She exhibits no distension and no mass. There is no tenderness. There is no rebound and no guarding. Musculoskeletal: She exhibits edema. Trace b/l lower extremity edema, no Skin: She is not diaphoretic. Laboratory Results: CBC w/ neuto predom leukocytosis, BMP unremarkable, Card enzymes neg Imaging Results: CXR: LLL pneumonia ED Course: - Patient was evaluated and discussed with Dr. Heard - Medications, allergies and past medical history reviewed - Zosyn IV, Vanc IV, Benadryl PO 12 lead ECG interpretation Rhythm: sinus tach Intervals: normal [place]: normal ST segment/T wave: no abnormalities Impression: Non-diagnostic ECG Assessment and Plan: Assessment: 47 y.o. female with cough, fever, leukocytosis, and LLL consolidation. Hemodynamically stable, though mildly tachycardic, and requiring 2L NC to maintain SpO2 in high 90s. Scapular shoulder pain can be explained by phrenic irritation and referred pain. Patient without signs of sepsis, such as hypotension or elevated fever in ED. Patient will require IV antibiotics given recently discharged from hospital this month, to treat hospital associated pneumonia. Given patient's allergy to penicillin as creating only rash, and not angioedena or airway compromise, patient will be still be treated with zosyn for expanded coverage, but will be pretreated with benadryl. Risks and benefits were discussed with the patient, the patient consented to zosyn treatment verbally, and the patient will be closely monitored during administration. Patient will continued to be monitored in the ED for stability and respiratory status. Patient signed out to Dr. Montes at end of shift. Plan: - Admit to [facility] Jacob Cox MD Resident 03/21/13 0037 Jacob Cox MD Resident 03/21/13 0040 ED ATTENDING ADDENDUM: The patient was seen in conjunction with Dr. Leung, the resident physician. I have independently performed the nuñez portions of the history and physical exam. I have reviewed all diagnostic studies personally including labs, imaging studies and EKG's. I have discussed the details of the case with the resident and agree with the assessment and plan as described in the resident note above unless noted otherwise below. In summary, pt presents with complaint of left shoulder pain and cough. CXR show LLL pna and pt requires treatment for HCAP due to recent admission. Pt admitted to medicine for further management. Final Assessment: HCAP Final Disposition: Admit to medicine Shannan Heard MD 03/28/13 0131 * Kelly Moon RN - 03/20/2013 11:04 PM EST Pt transferred to room 11. Pt up to bathroom without assistance. SBAR to TANIKA Huitron. * Kelly Moon RN - 03/20/2013 10:53 PM EST Chest xray complete. Pt resting comfortably with at bedside. No needs voiced at this time. * Kelly Moon RN - 03/20/2013 9:[address] Cox at bedside for assessment. documented in this encounter Miscellaneous Notes * Discharge Summary - Gaudencio Kim MD - 03/22/2013 10:28 AM EST Inpatient Hospital Medicine - Discharge Summary Patient Name: Teresita Beltre Patient Age: 47 y.o. Birthdate: 1965 Admit date: 03/21/2013 Discharge date and time: 03/22/2013 10:41 AM Attending Physician: Gaudencio Kim MD Follow-up Recommendations for Providers: - Ensure resolving pneumonia symptoms - Follow-up outpatient [facility] cardiology recommendations (Dr. Sullivan), per patient request - Would encourage ambulation as patient recovers Discharge Diagnoses (Hospital Problems) and Secondary Diagnoses (Chronic Problems): Active Hospital Problems Diagnosis ??? HCAP (healthcare-associated pneumonia) ??? SOB (shortness of breath) ??? Chest pain ??? Fever Resolved Hospital Problems Diagnosis Date Resolved No resolved problems to display. Active Non-Hospital Problems Diagnosis ??? Right heart failure ??? Cardiac cirrhosis ??? 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 Ascites ??? Abdominal pain, RUQ (right upper quadrant) ??? Abnormal LFTs (liver function tests) Operations/Major Procedures: Operations: * No surgery found * Other Major Procedures: None History of Presentation: Shortness of breath - this is a chronic problem. The current episode started more than 1 year ago (but worse in the past 12-24 hrs). The problem occurs intermittently. The problem has been gradually worsening. Associated symptoms include chest pain (shoulder/ back on left side, worse with cough anddeep breath), ear pain (left), a fever (100.5, with chills), headaches, orthopnea and PND. Pertinent negatives include no hemoptysis, leg pain, leg swelling, neck pain, rash, rhinorrhea, sore throat,sputum production, syncope, vomiting or wheezing. The symptoms are aggravated by any activity, lying flat and emotional upset. Associated symptoms comments: Dry cough on-off for the past year but wors e in the past 24hrs.. Treatments tried: tums, heat pad and dilaudid for pain. The treatment provided mild relief. There is no history of asthma, COPD or pneumonia. (Pericartitis a year ago, recent hospitalized for gallbladder surgery and catheterism. inthe past month), In the CXR suggestive of pneumonia, zosyn and vanco given. Hospital Course: # HCAP Mrs. Beltre was admitted to the hospital medicine service. Treatment was initiated with vancomycin and zosyn on admission, but was quickly narrowed to levofloxacin due to low level of concern for resistant organisms. She continued to improve quickly with this therapy, and although she was given O2 via NC during her hospitalization, she was ambulating on RA with no significant desaturation by the time of discharge. A course of PO levofloxacin was prescribed for the patient prior to discharge. Notably, the patient was experiencing chest pain related to her pneumonia during her stay, and this was treated successfully with dilaudid 4mg PO Q4H PRN. On the day of d/c she expressed concern regarding yeast infections when she is on antibiotics, and so a dose of fluconazole was sent to her pharmacy in case this problem arises. # Chronic diastolic heart failure / Cirrhosis These were not acute problems during her inpatient stay. She had a cardiac catheterization on 03/19/13 which showed normal coronaries. No further workup done while in-house, and she was continued on her home dose diuretic. Important Studies and Lab Data: Labs: Recent Labs Basename 03/22/13 0424 03/20/13 2147 WBC 5.6 13.0* HGB 12.6 13.6 PLATELET 206 254 Recent Labs Basename 03/22/13 0424 03/21/13 1041 03/20/13 2147 NA 137 -- 136 K 4.4 -- 4.4 CO2 26 -- 23 CL 99 -- 100 BUN 10 -- 7* CREATININE 0.94 -- 0.87 CALCIUM 9.7 9.6 9.5 MAGNESIUM -- 0.71 -- PHOS -- -- -- Recent Labs Basename 03/20/13 2147 TROPONINT <0.03 CK 26 LACTATE -- Studies: 03/20/13 -- CXR Findings are consistent with left lower lobe pneumonia. Pending Studies and Lab Data: None Discharge Conditions/Prognosis: Stable and improving, expected to make full recovery from her pneumonia Discharge to: Home Discharge Medications: Your Medications As of 03/22/2013 10:41 AM New Medications Dose Details diphenhydrAMINE 25 mg capsule Commonly known as: BENADRYL Take 1-2 capsules by mouth every 6 hours as needed for Itching. 25-50 mg Quantity: 30 capsule Refills: 0 fluconazole 150 mg tablet Commonly known as: DIFLUCAN Take 1 tablet by mouth once for 1 dose. 150 mg Quantity: 1 tablet Refills: 0 levofloxacin 750 mg tablet Commonly known as: LEVAQUIN Take 1 tablet by mouth every morning for 7 days. 750 mg Quantity: 7 tablet Refills: 0 polyethylene glycol 17 gram packet Commonly known as: MIRALAX Take 17 g by mouth 2 times daily as needed (constipation) for 3 days. 17 g Quantity: 14 each Refills: 0 Continued medications with new dosing Dose Details hydromorphone 4 mg tablet Commonly known as: DILAUDID Take 1 tablet by mouth every 4 hours as needed for Pain. What changed: - medication strength - dose 4 mg Quantity: 20 tablet Refills: 0 Continued medications, unchanged Dose Details ADVAIR DISKUS 250-50 mcg/dose diskus inhaler Inhale 1 puff into the lungs as needed. Generic drug: fluticasone-salmeterol 1 puff Refills: 0 albuterol 90 mcg/actuation inhaler Commonly known as: PROVENTIL HFA;VENTOLIN HFA Inhale 2 puffs into the lungs every 4 hours as needed. Use with spacer 2 puff Refills: 0 fluoxetine 20 mg capsule Commonly known as: PROZAC Take 40 mg by mouth daily. 40 mg Refills: 0 furosemide 20 mg tablet Commonly known as: LASIX Take 1 tablet by mouth daily. DIRECTED 20 mg Quantity: 30 tablet Refills: 11 lorazepam 1 mg tablet Commonly known as: ATIVAN 1-2 tablets at bedtime Quantity: 60 tablet Refills: 3 pantoprazole 40 mg tablet Commonly known as: PROTONIX Take 40 mg by mouth daily. 40 mg Refills: 0 spironolactone 100 mg tablet Commonly known as: ALDACTONE Take 1 tablet by mouth daily. 100 mg Quantity: 90 tablet Refills: 1 trazodone 100 mg tablet Commonly known as: DESYREL Take 150 mg by mouth nightly. 150 mg Refills: 0 Updated Allergies/ADRs: Allergies Allergen Reactions ??? Latex Rash ??? Scopolamine Itching and Rash Itching erythematous rash resolved with scop patch removal. ??? Adhesive Bandage Localized Reaction ??? Amoxicillin Trihydrate Rash ??? Penicillins Rash ??? Sulfa (Sulfonamide Antibiotics) Rash Instructions Given to Patient at Discharge: Provider Instructions Instruction after leaving the hospital Why you were hospitalized: Pneumonia Call your doctor or seek medical attention if you develop the following: Fever, chills, worsening shortness of breath, worsening chest pain/pressure, or any other worrisome symptom Activity level: As usual Diet: Low carbohydrate diet Driving: NO driving at all while taking narcotic pain relievers Shower/Bath: As usual Specific instructions related to your condition: Please ensure you complete all your antibiotics as prescribed. Please avoid any dairy, multivitamins or other foods/drinks with calcium/magnesium/iron in them for two hours before and after taking levofloxacin. Please continue to take all inhaled therapies as ordered. Please consider taking miralax as ordered to avoid constipation. You should be receiving correspondence from [facility] Cardiology in the near future for further management of your cardiac problems. Please take fluconazole as needed for yeast infection. Follow-Up Appointments Date and Time Provider and Specialty Location Tuesday, March 26, 2013 @ 4:15pm Dr. Childs, Internal Medicine [facility] Your Inpatient Doctor(s) at [facility]: Gaudencio Kim MD General Instructions About your Diabetes You should follow up with your doctor to discuss your diabetes care and your Hemoglobin-A1C. Patients with diabetes benefit from having their blood sugar values kept in a well-controlled range. The Hemoglobin-A1C test can check your overall control and may be able to direct the care of your diabetes. Review of our records indicates that you have not had a Hemoglobin-A1C result in our system in the last nine months. You should follow up with your doctor to discuss obtaining this test. Discharge References/Attachments: Discharge References/Attachments LIMITING SODIUM AND FLUIDS WITH HEART FAILURE: AFTER YOUR VISIT ([place]) PNEUMONIA IN ADULTS: AFTER YOUR VISIT ([place]) Inpatient Provider Contact Information: For questions regarding this document or issues relating to this hospitalization on the Medical Service, please contact your inpatient physician through the [facility] Recreation Specialist . Issues afterhours and on weekends will be handled by the Hospitalist staff on-call. Electronically Signed by: Gaudencio Kim MD 03/22/2013 * Plan of Care - Regla Lema RN - 03/22/2013 3:36 AM EST Problem: Trauma/Injury Risk (Adult, Obstetric) Goal: Trauma/Injury Risk: Absence of Trauma/Injury/Falls Outcome: Present (see interventions, notes) Pt alert and oriented x4 and rings the call gonzales appropriately. Pt needs minimal assist due to mildly affected ROM of RLE (related to groin incision). Pt receiving PO Dilaudid for pain with good effect. Safe environment maintained to prevent trauma/injury. Will continue to monitor. * Miscellaneous - Provider, Scanning - 03/21/2013 4:39 PM EST * Plan of Care - Homa Rosario RN - 03/21/2013 4:20 PM EST Problem: Pneumonia (Adult, Obstetric) Goal: Prevent/Manage Potential Problems Based on my scope of practice, I assessed for signs and symptoms of potential problems that could be present as documented. Pt alert and oriented x 4. Pt complaining of pleuritic pain with deep breathing and coughing located at left shoulder consistent with past reports. Pt received prn dilaudid 4 mg x 1 with good effect.Lung sounds diminished. Pt notes improvement with pain and breathing since admission but states sheis still FIGUEREDO. Lung sounds diminished throughout. Pt oxygen saturations high 90s with 2 L NC appliedfor comfort. Nonproductive cough present. Will continue to monitor and notify MD of any acute changes. * Miscellaneous - Provider, Scanning - 03/20/2013 10:26 PM EST * ED Triage - Elana Huffman RN - 03/20/2013 9:35 PM EST Pt c/o left shoulder pain, numbness, tingling, fever, cough. Recent cardiac catheterization. documented in this encounter Plan of Treatment Upcoming Encounters Date Type Department Care Team (Late st Contact Info) Description 09/14/2023 11:00 AM EDT Office Visit [place] [address] Mague Johnson MD [facility] [place] [address] documented as of this encounter Procedures Procedure Name Priority Date/Time Associated Diagnosis Comments CROWN PRESSER SCAN 03/23/2013 9:25 AM EST POCT GLUCOSE Routine 03/22/2013 11:39 AM EST POCT GLUCOSE Routine 03/22/2013 7:09 AM EST DIFFERENTIAL, AUTOMATED Routine 03/22/2013 4:24 AM EST CBC (WITH DIFF) Routine 03/22/2013 4:24 AM EST BASIC METABOLIC PANEL (NON-FASTING) Routine 03/22/2013 4:24 AM EST POCT GLUCOSE Routine 03/22/2013 3:58 AM EST POCT GLUCOSE Routine 03/21/2013 11:55 PM EST POCT GLUCOSE Routine 03/21/2013 8:03 PM EST POCT GLUCOSE Routine 03/21/2013 4:37 PM EST POCT GLUCOSE Routine 03/21/2013 11:33 AM EST MAGNESIUM Routine 03/21/2013 10:41 AM EST CALCIUM Routine 03/21/2013 10:41 AM EST POCT GLUCOSE Routine 03/21/2013 7:13 AM EST POCT GLUCOSE Routine 03/21/2013 5:26 AM EST XR CHEST PA AND LATERAL STAT 03/20/2013 10:46 PM EST DIFFERENTIAL, AUTOMATED STAT 03/20/2013 9:47 PM EST BLUE TUBE HOLD STAT 03/20/2013 9:47 PM EST CARDIAC ENZYMES ([facility]) STAT 03/20/2013 9:47 PM EST CBC (WITH DIFF) STAT 03/20/2013 9:47 PM EST BASIC METABOLIC PANEL (NON-FASTING) STAT 03/20/2013 9:47 PM EST EKG 12-LEAD STAT 03/20/2013 9:38 PM EST documented in this encounter Results * SCAN DOC: CROWN PRESSER (03/23/2013 9:25 AM EST) Anatomical Region Laterality Modality Other Narrative 03/23/2013 9:51 AM EST Procedure Note Provider, Scanning - 03/23/2013 9:25 AM EST Scanning Provider MEDIA MGR SCAN EXT O RDR/RSLT * POCT Glucose (03/22/2013 11:39 AM EST) POC Glucose 198 60 - 199 mg/dL CERNER MILLENNIUM Comment: Supplemental ranges: <110 mg/dL before meals <200 mg/dL all other times of the day Blood specimen (specimen) 03/22/2013 11:39 AM EST 03/22/2013 11:39 AM EST Desire Mendez MD POINT OF CARE TEST O RDERABLES Performing Organization Address City/[facility] Co de Phone Number KARO PENAIUM * POCT Glucose (03/22/2013 7:09 AM EST) POC Glucose 142 60 - 199 mg/dL CERNER MILLENNIUM Comment: Supplemental ranges: <110 mg/dL before meals <200 mg/dL all other times of the day Blood specimen (specimen) 03/22/2013 7:09 AM EST 03/22/2013 7:09 AM EST Desire Mendez MD POINT OF CARE TEST O RDERABLES Performing Organization Address [facility] Co de Phone Number CERMAYA RAMIREZENNIUM * (ABNORMAL) Differential, Automated (03/22/2013 4:24 AM EST) Neutrophils % 58.4 34.0 - 71.0 % CERNER MILLENNIUM Neutr Abs (ANC) 3.26 1.50 - 6.30 x10(3)/mc L CERNER MILLENNIUM Lymphocytes % 24.7 19.0 - 53.0 % CERNER MILLENNIUM Lymphocytes Abs 1.4 1.0 - 3.6 x10(3)/mc L CERNER MILLENNIUM Monocytes % 13.1(H) 4.0 - 13.0 % CERNER MILLENNIUM Monocyte Abs 0.7 0.2 - 1.0 x10(3)/mc L CERNER MILLENNIUM Eosinophils % 3.4 0.0 - 7.0 % CERNER MILLENNIUM Eosinophils Abs 0.2 0.0 - 0.5 x10(3)/mc L CERNER MILLENNIUM Basophils % 0.2 0.0 - 2.0 % CERNER MILLENNIUM Basophils Abs 0.0 0.0 - 0.2 x10(3)/mc L CERNER MILLENNIUM Immature Gran % 0.20 0.00 - 0.66 % CERNER MILLENNIUM Comment: Immature granulocytes(IG's)percentage and absolute count will include metamyelocytes, myelocytes, and promyelocytes. Blood smears from CBCs yielding IG's will be scanned manually for concordance. If this scan disagrees with the automated IG or if promyelocytes are noted, a manual differential will be performed. Ashley Gran Abs 0.01 0.00 - 0.05 x10(3)/mc L CERNER MILLENNIUM Blood specimen (specimen) 03/22/2013 4:24 AM EST 03/22/2013 4:30 AM EST Gaudencio Kim MD HEMATOLOGY ORDERABLE S CERNER MILLENNIUM * (ABNORMAL) CBC (with Diff) (03/22/2013 4:24 AM EST) WBC 5.6 4.0 - 10.0 x10(3)/mcL CERNER MILLENNIUM RBC 4.95 3.93 - 5.22 x10(6)/mcL CERNER MILLENNIUM Hemoglobin 12.6 11.2 - 15.7 gm/dL CERNER MILLENNIUM Hematocrit 39.1 34.0 - 45.0 % CERNER MILLENNIUM MCV 79.0 79.0 - 94.0 fL CERNER MILLENNIUM MCH 25.5(L) 26.6 - 32.2 pg CERNER MILLENNIUM MCHC 32.2 32.0 - 36.5 gm/dL CERNER MILLENNIUM Platelets 206 145 - 370 x10(3)/mcL CERNER MILLENNIUM RDWSD 49.1(H) 35.0 - 46.0 fL CERNER MILLENNIUM RDWCV 17.2(H) 10.9 - 14.4 % CERNER MILLENNIUM MPV 10.5 9.0 - 12.0 fL CERNER MILLENNIUM Blood specimen (specimen) 03/22/2013 4:24 AM EST 03/22/2013 4:30 AM EST Narrative Resulting Agency Comment Spec In Lab Gaudencio Kim MD HEMATOLOGY ORDERABLE S Performing Organization Address City/State/[facility] Co de Phone Number CERNER MILLENNIUM * Basic Metabolic Panel (non-fasting) (03/22/2013 4:24 AM EST) Glucose Lvl 161 60 - 199 mg/dL CERNER MILLENNIUM Comment:Diabetes: >=200 mg/d L plus symptoms BUN 10 8 - 18 mg/dL CERNER MILLENNIUM Creatinine 0.94 0.70 - 1.20 mg/dL CERNER MILLENNIUM Comment: Please note that the pediatric reference intervals supplied above were not validated at [facility]. Results from pediatric patients should be interpreted in conjunction to the patient's age, height and muscle mass. Sodium 137 135 - 145 mmol/L CERNER MILLENNIUM Potassium 4.4 3.5 - 5.0 mmol/L CERNER MILLENNIUM Comment: Please note: ??Patients with WBC >100,000 may have falsely elevated Potassium levels. ??For accurate Potassium quantification in these patients send serum separator tube (gold top) for subsequent determinations. ??Contact the Clinical Chemistry Laboratory if there are any questions. Chloride 99 98 - 107 mmol/L CERNER MILLENNIUM CO2 26 22 - 31 mmol/L CERNER MILLENNIUM Anion Gap 12 5 - 15 mmol/L CERNER MILLENNIUM Calcium 9.7 8.5 - 10.5 mg/dL CERNER MILLENNIUM Estimated GFR >60 >=60 CERNER MILLENNIUM Comment: This estimated GFR (eGFR) value was [...] the following links into your internet browser. http://www.nkdep.nih.gov/lab-evaluation.shtml http://www.kidney.org/professionals/ Blood specimen (specimen) 03/22/2013 4:24 AM EST 03/22/2013 4:30 AM EST Narrative Resulting Agency Comment Spec In Lab Gaudencio Kim MD CHEMISTRY ORDERABLES Performing Organization Address City/State/[facility] de Phone Number [facility] * POCT Glucose (03/22/2013 3:58 AM EST) POC Glucose 142 60 - 199 mg/dL [facility] Comment: Supplemental ranges: <110 mg/dL before meals <200 mg/dL all other times of the day Blood specimen (specimen) 03/22/2013 3:58 AM EST 03/22/2013 3:58 AM EST Desire Mendez MD POINT OF CARE TEST O RDERABLES Performing Organization Address [facility] de Phone Number [facility] * POCT Glucose (03/21/2013 11:55 PM EST) POC Glucose 157 60 - 199 mg/dL [facility] Comment: Supplemental ranges: <110 mg/dL before meals <200 mg/dL all other times of the day Blood specimen (specimen) 03/21/2013 11:55 PM EST 03/21/2013 11:55 PM EST Desire Mendez MD POINT OF CARE TEST O RDERABLES Performing Organization Address [facility] de Phone Number [facility] * POCT Glucose (03/21/2013 8:03 PM EST) POC Glucose 150 60 - 199 mg/dL [facility] Comment: Supplemental ranges: <110 mg/dL before meals <200 mg/dL all other times of the day Blood specimen (specimen) 03/21/2013 8:03 PM EST 03/21/2013 8:03 PM EST Desire Mendez MD POINT OF CARE TEST O RDERABLES Performing Organization Address [facility] de Phone Number [facility] * POCT Glucose (03/21/2013 4:37 PM EST) POC Glucose 135 60 - 199 mg/dL [facility] Comment: Supplemental ranges: <110 mg/dL before meals <200 mg/dL all other times of the day Blood specimen (specimen) 03/21/2013 4:37 PM EST 03/21/2013 4:37 PM EST Desire Mendez MD POINT OF CARE TEST O RDERABLES Performing Organization Address [facility] Phone Number [facility] * POCT Glucose (03/21/2013 11:33 AM EST) POC Glucose 158 60 - 199 mg/dL [facility] Comment: Supplemental ranges: <110 mg/dL before meals <200 mg/dL all other times of the day Blood specimen (specimen) 03/21/2013 11:33 AM EST 03/21/2013 11:33 AM EST Desire Mendez MD POINT OF CARE TEST O RDERABLES Performing Organization Address [facility] Phone Number [facility] * Calcium (03/21/2013 10:41 AM EST) Calcium 9.6 8.5 - 10.5 mg/dL [facility] Blood specimen (specimen) 03/21/2013 10:41 AM EST 03/21/2013 10:50 AM EST Narrative Resulting Agency Comment Spec In Lab Desire Mendez MD CHEMISTRY ORDERABLES Performing Organization Address [facility] Phone Number [facility] * Magnesium (03/21/2013 10:41 AM EST) Magnesium 0.71 0.69 - 1.07 mmol/L [facility] Blood specimen (specimen) 03/21/2013 10:41 AM EST 03/21/2013 10:50 AM EST Narrative Resulting Agency Comment Spec In Lab Desire Mendez MD CHEMISTRY ORDERABLES Performing Organization Address [facility] de Phone Number [facility] * POCT Glucose (03/21/2013 7:13 AM EST) POC Glucose 183 60 - 199 mg/dL [facility] Comment: Supplemental ranges: <110 mg/dL before meals <200 mg/dL all other times of the day Blood specimen (specimen) 03/21/2013 7:13 AM EST 03/21/2013 7:13 AM EST Desire Mendez MD POINT OF CARE TEST O RED Performing Organization Address [facility] de Phone Number [facility] * POCT Glucose (03/21/2013 5:26 AM EST) POC Glucose 125 60 - 199 mg/dL [facility] Comment: Supplemental ranges: <110 mg/dL before meals <200 mg/dL all other times of the day Blood specimen (specimen) 03/21/2013 5:26 AM EST 03/21/2013 5:26 AM EST Desire Mendez MD POINT OF CARE TEST O RED Performing Organization Address [facility] Phone Number [facility] * XR chest routine PA & lateral (03/20/2013 10:46 PM EST) Anatomical Region Laterality Modality Chest N/A Radiographic Beatrice ging 03/20/2013 10:4 6 PM EST Narrative 03/21/2013 8:51 AM EST Examination CHEST ROUTINE 2 VIEWS Clinical History SOB, chest pain, fever, Pneumonia? Comparison 03/14/2013. Technique PA and lateral views of the chest were performed. Findings The right lung is clear. There is a new ill defined hazy opacity involving the left lower lobe which obscures the left hemidiaphragm. ??On the lateral view, there is a patchy opacity overlies the mid thoracic vertebrae. No effusions or pneumothorax. Cardiomediastinal silhouette is within normal limits. Pulmonary vasculature is symmetric. There are mild degenerative changes of the thoracolumbar spine, unchanged. ?? Impression Findings are consistent with left lower lobe pneumonia. Film and interpretation reviewed by the attending Procedure Note Oh Oconnell MD - 03/21/2013 Examination CHEST ROUTINE 2 VIEWS Clinical History SOB, chest pain, fever, Pneumonia? Comparison 03/14/2013. Technique PA and lateral views of the chest were performed. Findings The right lung is clear. There is a new ill defined hazy opacity involvingthe left lower lobe which obscures the left hemidiaphragm. On the lateralview, there is a patchy opacity overlies the mid thoracic vertebrae. Noeffusions or pneumothorax. Cardiomediastinal silhouette is within normal limits.Pulmonary vasculature is symmetric. There are mild degenerative changes of the thoracolumbar spine, unchanged. Impression Findings are consistent with left lower lobe pneumonia. Film and interpretation reviewed by the attending Shannan Heard MD IMG DX ORDERABLES * (ABNORMAL) Differential, Automated (03/20/2013 9:47 PM EST) Neutrophils % 75.7(H) 34.0 - 71.0 % CERNER MILLENNIUM Neutr Abs (ANC) 9.84(H) 1.50 - 6.30 x10(3)/mc L CERNER MILLENNIUM Lymphocytes % 14.1(L) 19.0 - 53.0 % CERNER MILLENNIUM Lymphocytes Abs 1.8 1.0 - 3.6 x10(3)/mc L CERNER MILLENNIUM Monocytes % 8.9 4.0 - 13.0 % CERNER MILLENNIUM Monocyte Abs 1.2(H) 0.2 - 1.0 x10(3)/mc L CERNER MILLENNIUM Eosinophils % 0.9 0.0 - 7.0 % CERNER MILLENNIUM Eosinophils Abs 0.1 0.0 - 0.5 x10(3)/mc L CERNER MILLENNIUM Basophils % 0.2 0.0 - 2.0 % CERNER MILLENNIUM Basophils Abs 0.0 0.0 - 0.2 x10(3)/mc L CERNER MILLENNIUM Immature Gran % 0.20 0.00 - 0.66 % CERNER MILLENNIUM Comment: Immature granulocytes(IG's)percentage and absolute count will include metamyelocytes, myelocytes, and promyelocytes. Blood smears from CBCs yielding IG's will be scanned manually for concordance. If this scan disagrees with the automated IG or if promyelocytes are noted, a manual differential will be performed. Ashley Gran Abs 0.02 0.00 - 0.05 x10(3)/mc L CERNER MILLENNIUM Blood specimen (specimen) 03/20/2013 9:47 PM EST 03/20/2013 9:52 PM EST Shannan Heard MD HEMATOLOGY ORDERABLE S [facility]ERNER [facility]ILLENNIUM * (ABNORMAL) Basic Metabolic Panel (non-fasting) (03/20/2013 9:47 PM EST) Glucose Lvl 135 60 - 199 mg/dL [facility] Comment:Diabetes: >=200 mg/d L plus symptoms BUN 7(L) 8 - 18 mg/dL CERNER MILLENNIUM Creatinine 0.87 0.70 - 1.20 mg/dL CERNER MILLENNIUM Comment: Please note that the pediatric reference intervals supplied above were not validated at [facility]. Results from pediatric patients should be interpreted in conjunction to the patient's age, height and muscle mass. Sodium 136 135 - 145 mmol/L CERNER MILLENNIUM Potassium 4.4 3.5 - 5.0 mmol/L CERNER MILLENNIUM Comment: Please note: ??Patients with WBC >100,000 may have falsely elevated Potassium levels. ??For accurate Potassium quantification in these patients send serum separator tube (gold top) for subsequent determinations. ??Contact the Clinical Chemistry Laboratory if there are any questions. Chloride 100 98 - 107 mmol/L CERNER MILLENNIUM CO2 23 22 - 31 mmol/L CERNER MILLENNIUM Anion Gap 13 5 - 15 mmol/L CERNER MILLENNIUM Calcium 9.5 8.5 - 10.5 mg/dL CERNER MILLENNIUM Estimated GFR >60 >=60 CERNER MILLENNIUM Comment: This estimated GFR (eGFR) value was [...] the following links into your internet browser. http://www.nkdep.nih.gov/lab-evaluation.shtml http://www.kidney.org/professionals/ Blood specimen (specimen) 03/20/2013 9:47 PM EST 03/20/2013 9:52 PM EST Narrative Resulting Agency Comment Spec In Lab Shannan Heard MD CHEMISTRY ORDERABLES CERNER MILLENNIUM * (ABNORMAL) CBC (with Diff) (03/20/2013 9:47 PM EST) WBC 13.0(H) 4.0 - 10.0 x10(3)/mcL CERNER MILLENNIUM RBC 5.34(H) 3.93 - 5.22 x10(6)/mcL CERNER MILLENNIUM Hemoglobin 13.6 11.2 - 15.7 gm/dL CERNER MILLENNIUM Hematocrit 40.5 34.0 - 45.0 % CERNER MILLENNIUM MCV 75.8(L) 79.0 - 94.0 fL CERNER MILLENNIUM MCH 25.5(L) 26.6 - 32.2 pg CERNER MILLENNIUM MCHC 33.6 32.0 - 36.5 gm/dL CERNER MILLENNIUM Platelets 254 145 - 370 x10(3)/mcL CERNER MILLENNIUM RDWSD 46.9(H) 35.0 - 46.0 fL CERNER MILLENNIUM RDWCV 16.9(H) 10.9 - 14.4 % CERNER MILLENNIUM MPV 10.7 9.0 - 12.0 fL CERNER MILLENNIUM Blood specimen (specimen) 03/20/2013 9:47 PM EST 03/20/2013 9:52 PM EST Narrative Resulting Agency Comment Spec In Lab Shannan Heard MD HEMATOLOGY ORDERABLE S [facility] * Cardiac Enzymes (03/20/2013 9:47 PM EST) Troponin-T <0.03 <=0.03 ng/mL [facility]ILL[facility] Comment: 0.03 ng/mL: Represents the 99th percentile upper reference limit for normals. >0.03 ng/mL: Elevated cardiac troponin T level indicative of myocardial damage. Diagnosis of acute, evolving or recent DC requires a typical rise and gradual fall of cTnT with at least ONE of the following: a) Ischemic symptoms b) Development of pathologic Q waves on the ECG c) ECG changes indicative of eschemia (S-T segment elevation/depression) d) Coronary artery intervention Serial bloods should be obtained for testing on admission, at 6 to 9 hrs and again at 12 to 24 hrs if earlier samples are negative and the clinical index of suspicion is high. Reference: [Myocardial infarction redefined? a consensus document of the Joint Society of Cardiology/[place] College of [employer] Committee for the redefinition of myocardial infarction. ??Journal of the [place] College of [employer]iology 2000; 36: 959-969] CK, Total 26 0 - 160 unit/L [facility] Blood specimen (specimen) 03/20/2013 9:47 PM EST 03/20/2013 9:52 PM EST Narrative Resulting Agency Comment Spec In Lab Shannan Heard MD CHEMISTRY ORDERABLES Performing Organization Address [facility] Co de Phone Number [facility] * Blue Tube HOLD (03/20/2013 9:47 PM EST) Pathologist [facility] Blue Hold Sample in lab. [facility]UB[facility] Blood specimen (specimen) 03/20/2013 9:47 PM EST 03/20/2013 9:52 PM EST Shannan Heard MD HEMATOLOGY ORDERABLE S Performing Organization Address [facility] Co de Phone Number [facility] * EKG 12 Lead (03/20/2013 9:38 PM EST) Ventricular rate 105 BPM MUSE SYSTEM Atrial Rate 105 BPM MUSE SYSTEM P-R Interval 168 ms MUSE SYSTEM QRS Duration 70 ms MUSE SYSTEM Q-T Interval 352 ms MUSE SYSTEM QTC Calculated (Bezet) 465 ms MUSE SYSTEM Calculated P [place] 24 degrees MUSE SYSTEM Calculated R [place] 58 degrees MUSE SYSTEM Calculated T [place] -19 degrees MUSE SYSTEM INTERPRETATION Sinus tachycardia Possible Left atrial enlargement Nonspecific ST and T wave abnormality Abnormal ECG When compared with ECG of 14-MAR-2013 14:33, No significant change was found I personally reviewed the tracing and edited the fellows interpretation Confirmed by fellow MD Victoria, Joaquin Oneil ([id number]) on 03/21/2013 11:04:34 AM Confirmed by MD LARRY BRUCE ([id number]) on 03/22/2013 2:49:29 PM MUSE SYSTEM 03/20/2013 9:38 PM EST 03/22/2013 2:49 PM EST Shannan Heard MD ECG ORDERABLES MUSE SYSTEM documented in this encounter Visit Diagnoses Diagnosis HCAP (healthcare-associated pneumonia)- Primary Pneumonia, organism unspecified HAP (hospital-acquired pneumonia) Pneumonia, organism unspecified Edema Abdominal pain, unspecified site Restless legs syndrome (RLS) SOB (shortness of breath) Shortness of breath Chest pain Chest pain, unspecified Fever Fever, unspecified documented in this encounter Administered Medications Inactive Administered Medications - up to 3 most recent administrations Medication Order MAR Action Action Date Dose Rate Site diphenhydrAMINE (BENADRYL) capsule 25-50 mg 25-50 mg, Oral, EVERY 6 HOURS PRN, Starting on Tue03/21/13 at 2205, Until Alyson 03/22/13 at 1557, Itching, May repeat 25 mg in 30-60 minutes if ineffective., Routine Given 03/22/2013 12:01 AM EST 50 mg diphenhydrAMINE (BENADRYL) capsule 50 mg 50 mg, Oral, ONCE, 1 dose, On Tue03/21/13 at 0045, STAT Given 03/21/2013 12:45 AM EST 50 mg enoxaparin (LOVENOX) injection 40 mg 40 mg, Subcutaneous, DAILY, First dose on Tue03/21/13 at 0900, Until Discontinued, Routine Given 03/22/2013 8:49 AM EST 40 mg Right Lower Quadrant Given 03/21/2013 8:11 AM EST 40 mg esomeprazole (NEXIUM) capsule 40 mg 40 mg, Oral, DAILY, First dose on Tue03/21/13 at 0900, Until Discontinued, Routine Given 03/22/2013 8:47 AM EST 40 mg Given 03/21/2013 8:04 AM EST 40 mg fluconazole (DIFLUCAN) tablet 150 mg 150 mg, Oral, ONCE, 1 dose, On Tue03/21/13 at 0530, Routine, Indication for (Active or Suspected): Prophylaxis Given 03/21/2013 7:42 AM EST 150 mg fluoxetine (PROZAC) capsule 40 mg 40 mg, Oral, DAILY, First dose on Tue03/21/13 at 0900, Until Discontinued, Routine Given 03/22/2013 8:47 AM EST 40 mg Given 03/21/2013 8:04 AM EST 40 mg fluticasone-salmeterol (ADVAIR HFA) 115-21 mcg/actuation inhaler 2 puff 2 puff, Inhalation, EVERY 12 HOURS SCHEDULED (2 times per day), First dose on Tue03/21/13 at 0900, Until Discontinued, Rinse mouth after administration. T. I for fluticasone-salmeterol 250-50 inhaler, 1 puff, bid. Given 03/22/2013 8:51 AM EST 2 puffs Given 03/21/2013 9:09 PM EST 2 puffs Given 03/21/2013 8:10 AM EST 2 puffs furosemide (LASIX) tablet 20 mg 20 mg, Oral, DAILY, First dose on Tue03/21/13 at 0900, Until Discontinued, Routine Given 03/22/2013 8:48 AM EST 20 mg Given 03/21/2013 8:04 AM EST 20 mg hydromorphone (DILAUDID) tablet 4 mg 4 mg, Oral, EVERY 4 HOURS PRN, Starting on Tue03/21/13 at 0500, Until Alyson 03/22/13 at 1557, Pain, Routine Given 03/22/2013 1:35 AM EST 4 mg Given 03/21/2013 1:22 PM EST 4 mg Given 03/21/2013 5:31 AM EST 4 mg insulin aspart (novoLOG) PEN injection 1-4 Units 1-4 Units, Subcutaneous, EVERY 4 HOURS SCHEDULED, First dose on Tue03/21/13 at 0530, Until Discontinued, CORRECTION BOLUS Sensitive to insulin lean patient or total daily dose of all insulin needed to achieve glycemic control less than 30 units BG 140 - 160 Give 1 unit BG 161 - 200 Give 2 units BG 201 - 240 Give 3 units BG greater than 240, give 4 units and recheck BG in 2 hours. If BG remains greater than 240, repeat 4 units (no more than three times) & call for new basal insulin orders. If less than 240 after two hours, give no insulin and resume prior schedule., Routine Given 03/22/2013 11:52 AM EST 2 Units Right Arm Given 03/22/2013 8:51 AM EST 1 Units Ri ght Arm Given 03/22/2013 4:10 AM EST 1 Units Le ft Arm levofloxacin (LEVAQUIN) tablet 750 mg 750 mg, Oral, EVERY MORNING, First dose on Alyson 03/22/13 at 0830, Until Discontinued, Routine, Indication for (Active or Suspected): Pneumonia (Health-Care), Restricted Antibiotic: Please indicate the most appropriate choice: ID Approval by Eloy Guy Given 03/22/2013 10:15 AM EST 750 mg levofloxacin in D5W (LEVAQUIN) 750 mg/150 mL 750 mg 750 mg, Intravenous, Administer over 90 Minutes, EVERY 24 HOURS, First dose on Tue03/21/13 at 1130, Until Discontinued, Routine, Indication for (Active or Suspected): Pneumonia (Health-Care), Restricted Antibiotic: Please indicate the most appropriate choice: ID Approval by Eloy Guy Given 03/21/2013 12:26 PM EST 750 mg lorazepam (ATIVAN) tablet 1 mg 1 mg, Oral, NIGHTLY, First dose on Tue03/21/13 at 0530, Until Discontinued, Routine Given 03/21/2013 9:09 PM EST 1 mg Given 03/21/2013 5:31 AM EST 1 mg piperacillin-tazobactam (ZOSYN) 3.375 g in dextrose 5% 50 mL 3.375 g, Intravenous, EVERY 8 HOURS, First dose on Tue03/21/13 at 0800, Until Discontinued, Administer over 4 Hours, Indication for (Active or Suspected): Pneumonia (Health-Care) Given 03/21/2013 8:03 AM EST 3.375 g 12.5 mL/hr piperacillin-tazobactam (ZOSYN) IV (Alternative Adult) infusion 4.5 g, Intravenous, ONCE, 1 dose, On Tue03/21/13 at 0045, Administer over 30 Minutes, Indication for (Active or Suspected): Pneumonia (Health-Care) Given 03/21/2013 12:45 AM EST 4.5 g 200 mL/hr polyethylene glycol (MIRALAX) packet 17 g 17 g, Oral, 2 TIMES DAILY, First dose on Alyson 03/22/13 at 0930, Until Discontinued, Routine Given 03/22/2013 10:23 AM EST 17 g sodium chloride 0.9 % flush 5 mL 5 mL, Intravenous, 2 TIMES DAILY, First dose on Tue03/21/13 at 0900, Until Discontinued, Routine Given 03/22/2013 8:53 AM EST 10 mLs Given 03/21/2013 9:17 PM EST 5 mLs Given 03/21/2013 8:06 AM EST 10 mLs spironolactone (ALDACTONE) tablet 100 mg 100 mg, Oral, DAILY, First dose on Tue03/21/13 at 0900, Until Discontinued, Routine Given 03/22/2013 8:48 AM EST 100 mg Given 03/21/2013 8:05 AM EST 100 mg trazodone (DESYREL) tablet 150 mg 150 mg, Oral, NIGHTLY, First dose on Tue03/21/13 at 0530, Until Discontinued, Routine Given 03/21/2013 9:08 PM EST 150 mg vancomycin 1 g in dextrose 5% 200 mL 1,000 mg (1 g), Intravenous, ONCE, On Tue03/21/13 at 0045, 1 dose, Indication for (Active or Suspected): Pneumonia (Health-Care) Given 03/21/2013 12:45 AM EST 1,000 mg documented in this encounter Active and Recently Administered Medications Times are shown in EST. Scheduled Medication Order 03/20/2013 03/21/2013 03/22/2013 diphenhydrAMINE (BENADRYL) capsule 50 mg (COMPLETED) 50 mg, Oral, ONCE, 1 dose, On Tue03/21/13 at 0045, STAT 0045 (Given - Provider: Elana Huffman RN) enoxaparin (LOVENOX) injection 40 mg (CANCELED) 40 mg, Subcutaneous, DAILY, First dose on Tue03/21/13 at 0900, Until Discontinued, Routine 0811 (Given - Provider: Homa Rosario RN) 0849 (Given - Provider: Christy Walsh RN) esomeprazole (NEXIUM) capsule 40 mg (CANCELED) 40 mg, Oral, DAILY, First dose on Tue03/21/13 at 0900, Until Discontinued, Routine 0804 (Given - Provider: Homa Rosario RN) 0847 (Given - Provider: Christy Walsh, TANIKA) fluconazole (DIFLUCAN) tablet 150 mg (COMPLETED) 150 mg, Oral, ONCE, 1 dose, On Tue03/21/13 at 0530, Routine, Indication for (Active or Suspected): Prophylaxis 0742 (Given - Provider: Homa Rosario RN) fluoxetine (PROZAC) capsule 40 mg (CANCELED) 40 mg, Oral, DAILY, First dose on Tue03/21/13 at 0900, Until Discontinued, Routine 08 (Given - Provider: Homa Rosario RN) 0847 (Given - Provider: Christy Walsh, TANIKA) fluticasone-salmeterol (ADVAIR HFA) 115-21 mcg/actuation inhaler 2 puff (CANCELED) 2 puff, Inhalation, EVERY 12 HOURS SCHEDULED (2 times per day), First dose on Tue03/21/13 at 0900, Until Discontinued, Rinse mouth after administration. T. I for fluticasone-salmeterol 250-50 inhaler, 1 puff, bid. 0810 (Given - Provider: Homa Rosario RN)2109 (Given - Provider: Regla Lema RN) 0851 (Given - Provider: Christy Walsh, TANIKA) furosemide (LASIX) tablet 20 mg (CANCELED) 20 mg, Oral, DAILY, First dose on Tue03/21/13 at 0900, Until Discontinued, Routine 08 (Given - Provider: Homa Rosario RN) 0848 (Given - Provider: Christy Walsh, TANIKA) insulin aspart (novoLOG) PEN injection 1-4 Units (CANCELED) 1-4 Units, Subcutaneous, EVERY 4 HOURS SCHEDULED, First dose on Tue03/21/13 at 0530, Until Discontinued, CORRECTION BOLUS Sensitive to insulin lean patient or total daily dose of all insulin needed to achieve glycemic control less than 30 units BG 140 - 160 Give 1 unit BG 161 - 200 Give 2 units BG 201 - 240 Give 3 units BG greater than 240, give 4 units and recheck BG in 2 hours. If BG remains greater than 240, repeat 4 units (no more than three times) & call for new basal insulin orders. If less than 240 after two hours, give no insulin and resume prior schedule., Routine 0530 (Not Given - Provider: Regla Lema RN - Reason: Order parameters not met)0743 (Given - Provider: Homa Rosario RN)1149 (Given - Provider: Lester Montaño)1642 (Not Given - Provider: Homa Rosario RN - Reason: Order parameters not met)2108 (Given - Provider: Regla Lema RN) 0001 (Given - Provider: Regla Lema RN)0410 (Given - Provider: Regla Lema RN)0851 (Given - Provider: Christy Walsh RN)1152 (Given - Provider: Christy Walsh RN) levofloxacin (LEVAQUIN) tablet 750 mg 750 mg, Oral, EVERY MORNING, First dose on Tue03/22/13 at 0830, Until Discontinued, Routine, Indication for (Active or Suspected): Pneumonia (Health-Care), Restricted Antibiotic: Please indicate the most appropriate choice: ID Approval by Eloy Guy [id number] (Given - Provid er: Christy Walsh RN - Comment: Medication not available from pharmacy until this time.) levofloxacin in D5W (LEVAQUIN) 750 mg/150 mL 750 mg (CANCELED) 750 mg, Intravenous, Administer over 90 Minutes, EVERY 24 HOURS, First dose on Tue03/21/13 at 1130, Until Discontinued, Routine, Indication for (Active or Suspected): Pneumonia ([facility]-Care), Restricted Antibiotic: Please indicate the most appropriate choice: ID Approval by Eloy Guy 1226 (Given - Provider: Lester Montaño) lorazepam (ATIVAN) tablet 1 mg (CANCELED) 1 mg, Oral, NIGHTLY, First dose on Tue03/21/13 at 0530, Until Discontinued, Routine 0531 (Given - Provider: Regla Lema RN)210 (Given - Provider: Regla Lema RN) piperacillin-tazobactam (ZOSYN) 3.375 g in dextrose 5% 50 mL (CANCELED) 3.375 g, Intravenous, EVERY 8 HOURS, First dose on Tue03/21/13 at 0800, Until Discontinued, Administer over 4 Hours, Indication for (Active or Suspected): Pneumonia (Health-Care) 0803 (Given - Provider: Homa Rosario RN) piperacillin-tazobactam (ZOSYN) IV (Alternative Adult) infusion (COMPLETED) 4.5 g, Intravenous, ONCE, 1 dose, On Tue03/21/13 at 0045, Administer over 30 Minutes, Indication for (Active or Suspected): Pneumonia (Health-Care) 0045 (Given - Provider: Elana Huffman RN) polyethylene glycol (MIRALAX) packet 17 g 17 g, Oral, 2 TIMES DAILY, First dose on Tue03/22/13 at 0930, Until Discontinued, Routine 1023 (Given - Provid er: Christy Walsh RN) sodium chloride 0.9 % flush 5 mL (CANCELED) 5 mL, Intravenous, 2 TIMES DAILY, First dose on Tue03/21/13 at 0900, Until Discontinued, Routine 0806 (Given - Provider: Homa Rosario RN)2117 (Given - Provider: Regla Lema RN) 0853 (Given - Provider: Christy Walsh RN) spironolactone (ALDACTONE) tablet 100 mg (CANCELED) 100 mg, Oral, DAILY, First dose on Tue03/21/13 at 0900, Until Discontinued, Routine 0805 (Given - Provider: Homa Rosario RN) 0848 (Given - Provider: Christy Walsh RN) trazodone (DESYREL) tablet 150 mg (CANCELED) 150 mg, Oral, NIGHTLY, First dose on Tue03/21/13 at 0530, Until Discontinued, Routine 0530 (Not Given - Provider: Regla Lema RN - Reason: Medication not available)2107 (Given - Provider: Regla Lema RN) vancomycin 1 g in dextrose 5% 200 mL (COMPLETED) 1,000 mg (1 g), Intravenous, ONCE, On Tue03/21/13 at 0045, 1 dose, Indication for (Active or Suspected): Pneumonia (Health-Care) 0045 (Given - Provider: Elana Huffman, TANIKA) PRN Medication Order 03/20/2013 03/21/2013 03/22/2013 diphenhydrAMINE (BENADRYL) capsule 25-50 mg 25-50 mg, Oral, EVERY 6 HOURS PRN, Starting on Tue03/21/13 at 2205, Until Alyson 03/22/13 at 1557, Itching, May repeat 25 mg in 30-60 minutes if ineffective., Routine 0001 (Given - Provid er: Regla Lema RN) hydromorphone (DILAUDID) tablet 4 mg 4 mg, Oral, EVERY 4 HOURS PRN, Starting on Tue03/21/13 at 0500, Until Alyson 03/22/13 at 1557, Pain, Routine 0531 (Given - Provider: Regla Lema RN)1322 (Given - Provider: Homa Rosario, TANIKA) 0135 (Given - Provider: Regla Lema RN) documented in this encounter Care Teams Competitive Shopper Relationship Specialty Start Date End Date Bernadette Childs MD [address] [place] [address] PCP - General 04/03/12 07/27/20 documented as of this encounter
--- OUTSIDE RECORDS SUMMARY | 2023-09-06 01:41 | XMS_ITS | Encounter Summary ---
Author Organization Pending Sale To [facility] Address [facility] [place] [address] Care Team Providers Care Base Ply Hand Name Role Phone Bernadette Childs MD Primary Care Provider [phone] Encounter Details Date Type Department Care Team (Latest Contact Info) Description 03/14/2013 11:36 AM EST - 03/14/2013 11:59 PM EST Hospital Encounter Non-Invasive [place] [address] CARDIO, ECHO SIXTY MIN APPT None Karen Farnsworth MD [facility] [place] [address] Cirrhosis, cardiac Discharge Disposition: Home Social History Tobacco Use [...] Sig Dispensed Refills Start Date End Date HYDROmorphone (DILAUDID) 2 mg tabletIndications:Abdom inal pain, [...] 11:00 AM EDT Office [place] [address] Mague Johnson MD [facility] [place] [address] documented as of this encounter Procedures Procedure Name Priority Date/Time Associated Diagnosis Comments ECHOCARDIOGRAM TRANSTHORACIC Routine 03/14/2013 1:18 PM EST Cirrhosis, cardiac documented in this encounter Results * Echocardiogram Transthoracic(Leb) (03/14/2013 1:18 PM EST) EF 65 [employer] SYSTEM Anatomical Region Laterality Modality Other 03/14/2013 Narrative 03/14/2013 1:32 PM EST Procedure: ? Transthoracic Echocardiogram Patient: ? RUBA PATE ?(Age): 1965(47) Med Rec#: ?[id number] ? Sex: ?F ? Site Loc: ?[facility] ? Ht / Wt: ??158(cm)/88(kg) Pt. Loc: ? Echo Lab ? BSA: ?1.97 Study Date: ?03/14/2013 ? Pt. Type: Outpatient Tape: ? Referring: Karen Farnsworth Reinforcing Steel Worker Wire Mesh: Tamie Leonard Diagnosis:CPT Code(s): ??Echo Full (05320), ??Spectral Doppler (46510), Color Doppler (22260), Indication(s): ??Pericardial constriction, R/O Rhythm: Sinus HR ?BP ?126/76 ?? SUMMARY: 1. There are some findings consistent with some degree constrictive physiology including a septal bounce, rapid diastolic filling (200 msec), some pericardial thickening, and diastolic reversal of flow in the hepatic veins. However, there is no exaggerated respirophasic flow across the mitral valve. 2. Left ventricular chamber size, wall thickness, global and segmental systolic function are within normal limits. Ejection fraction is estimated to be 65%. 3. Right ventricular chamber size, wall thickness, and systolic function are within normal limits. 4. There is no hemodynamically significant valve disease. 5. The estimated pulmonary artery systolic pressure is 35 mmHg. 6. See remainder of report for additional findings. FINDINGS: Left Ventricle ?Left ventricular chamber size, wall thickness, global and segmental systolic function are within normal limits. Ejection fraction is estimated to be 65%. ?There is no evidence of LVOT obstruction. ?No ventricular septal defect is visualized. ?There are no left ventricular segmental wall motion abnormalities. ?Doppler assessment is consistent with normal left sided filling pressure. Left Atrium ?The left atrium is normal in size. ?No atrial septal defect is visualized. Right Ventricle ?Right ventricular chamber size, wall thickness, and systolic function are within normal limits. ?The estimated pulmonary artery systolic pressure is 35 mmHg. ?The estimated right atrial pressure is 15 mmHg. Right Atrium ?The right atrium is normal in size. Aortic Valve ?The aortic valve is trileaflet. The leaflets are thin with normal excursion. There is no aortic stenosis or regurgitation present. Mitral Valve ?The mitral valve appears normal in structure and function. ?There is no evidence of mitral valve leaflet prolapse. ?There is trace mitral regurgitation present. Tricuspid Valve ?The tricuspid valve appears normal in structure and function. ?There is mild (1+/4+) tricuspid regurgitation present. Pulmonic Valve ?The pulmonic valve appears normal in structure and function. Pericardium ?The pericardium appears normal and there is no evidence of a pericardial effusion. Aorta ?The aortic root is normal in size. ?The ascending aorta is normal in size. ?There is no evidence of coarctation of the aorta. Pulmonary Artery ?The main pulmonary artery appears normal. Venous ?The inferior vena cava appears dilated. ?There is less than 50% respiratory change in the inferior vena cava dimension consistent with elevated right atrial pressure. Misc ?Two-dimensional echo, spectral Doppler and color Doppler performed. Wall Motion: Segment Name ?Rest ? Base-Anteroseptal ?? Normal ? Base-Anterior ? Normal ? Base-Anterolateral ??Normal ? Base-Posterolateral Normal ? Base-Inferior ? Normal ? Base-Inferoseptal ?? Normal ? Mid-Anteroseptal ?Normal ? Mid-Anterior ?Normal ? Mid-Anterolateral ?? Normal ? Mid-Posterolateral ??Normal ? Mid-Inferior ?Normal ? Mid-Inferoseptal ?Normal ? [place]-Septal ? Normal ? [place]-Anterior ? Normal ? [place]-Lateral ?Normal ? [place]-Inferior ? Normal ? [place]-Tip ?Normal ? Chambers ?Value ?Units (Range) ? LV EF Est ? 65 ? % (55 to 80) ? IVSd 2D ? 0.8 ?cm ? LVIDd 2D ?2.7 ?cm ? PWd 2D ?0.7 ?cm ? LVIDs 2D ?1.7 ?cm ? LVFS 2D ? 37 ? % ? LA area ? 18 ? cm2 (<21) ? RA area ? 14 ? cm2 (<18) ? Ao root ? 2.4 ?cm (2.1 to 3.6) ? Asc Ao ?2.3 ?cm (2 to 3.5) ? Mitral Valve ?Value ?Units (Range) ? E peak ?1.13 ? m/sec ? E/A ratio ? 1.5 ?ratio ? MVDT ?193 ?msec ? E1 ?0.11 ? m/sec ? E/E1 ?10.3 ? ratio ? Tricuspid/Pulmonic Valves ?Value ?Units (Range) ? TR peak janet ? 2.2 ?m/sec ? RAP ? 15 ? mmHg ? RVSP/PASP ? 35 ? mmHg ? This report has been electronically signed by: Octaviano Prado MD ? 03/14/2013 13:31:19 Images reviewed and interpretation verified [facility] Cardiac Ultrasound Laboratory Procedure Note Octaviano Prado MD - 03/14/2013 Procedure: Transthoracic Echocardiogram Patient: RUBA FRANCISCO(Age): 1965(47) Med Rec#: [id number] Sex: F Site Loc: [facility] Ht / Wt: 158(cm)/88(kg) Pt. Loc: Echo Lab BSA: 1.97 Study Date: 03/14/2013 Pt. Type: Outpatient Tape: Referring: Karen Farnsworth Reinforcing Steel Worker Wire Mesh: Tamie Leonard Diagnosis:CPT Code(s): Echo Full (82169), Spectral Doppler (36661), Color Doppler (10181), Indication(s): Pericardial constriction, R/O Rhythm: Sinus HR BP 126/76 SUMMARY: 1. There are some findings consistent with some degree constrictive physiology including a septal bounce, rapid diastolic filling (200 msec), some pericardial thickening, and diastolic reversal of flow in the hepatic veins. However, there is no exaggerated respirophasic flow across the mitral valve. 2. Left ventricular chamber size, wall thickness, global and segmental systolic function are within normal limits. Ejection fraction is estimated to be 65%. 3. Right ventricular chamber size, wall thickness, and systolic function are within normal limits. 4. There is no hemodynamically significant valve disease. 5. The estimated pulmonary artery systolic pressure is 35 mmHg. 6. See remainder of report for additional findings. FINDINGS: Left Ventricle Left ventricular chamber size, wall thickness, global and segmental systolic function are within normal limits. Ejection fraction is estimated to be 65%. There is no evidence of LVOT obstruction. No ventricular septal defect is visualized. There are no left ventricular segmental wall motion abnormalities. Doppler assessment is consistent with normal left sided filling pressure. Left Atrium The left atrium is normal in size. No atrial septal defect is visualized. Right Ventricle Right ventricular chamber size, wall thickness, and systolic function are within normal limits. The estimated pulmonary artery systolic pressure is 35 mmHg. The estimated right atrial pressure is 15 mmHg. Right Atrium The right atrium is normal in size. Aortic Valve The aortic valve is trileaflet. The leaflets are thin with normal excursion. There is no aortic stenosis or regurgitation present. Mitral Valve The mitral valve appears normal in structure and function. There is no evidence of mitral valve leaflet prolapse. There is trace mitral regurgitation present. Tricuspid Valve The tricuspid valve appears normal in structure and function. There is mild (1+/4+) tricuspid regurgitation present. Pulmonic Valve The pulmonic valve appears normal in structure and function. Pericardium The pericardium appears normal and there is no evidence of a pericardial effusion. Aorta The aortic root is normal in size. The ascending aorta is normal in size. There is no evidence of coarctation of the aorta. Pulmonary Artery The main pulmonary artery appears normal. Venous The inferior vena cava appears dilated. There is less than 50% respiratory change in the inferior vena cava dimension consistent with elevated right atrial pressure. [facility] Two-dimensional echo, spectral Doppler and color Doppler performed. Wall Motion: Segment Name Rest Base-Anteroseptal Normal Base-Anterior Normal Base-Anterolateral Normal Base-Posterolateral Normal Base-Inferior Normal Base-Inferoseptal Normal Mid-Anteroseptal Normal Mid-Anterior Normal Mid-Anterolateral Normal Mid-Posterolateral Normal Mid-Inferior Normal Mid-Inferoseptal Normal Denver-Septal Normal Denver-Anterior Normal Denver-Lateral Normal Denver-Inferior Normal Denver-Tip Normal Chambers Value Units (Range) LV EF Est 65 % (55 to 80) IVSd 2D 0.8 cm LVIDd 2D 2.7 cm PWd 2D 0.7 cm LVIDs 2D 1.7 cm LVFS 2D 37 % LA area 18 cm2 (<21) RA area 14 cm2 (<18) Ao root 2.4 cm (2.1 to 3.6) Asc Ao 2.3 cm (2 to 3.5) Mitral Valve Value Units (Range) E peak 1.13 m/sec E/A ratio 1.5 ratio MVDT 193 msec E1 0.11 m/sec E/E1 10.3 ratio Tricuspid/Pulmonic Valves Value Units (Range) TR peak janet 2.2 m/sec RAP 15 mmHg RVSP/PASP 35 mmHg This report has been electronically signed by: Octaviano Prado MD 03/14/2013 13:31:19 Images reviewed and interpretation verified [facility] Cardiac Ultrasound Laboratory Karen Farnsworth MD ECHO ORDERABLES documented in this encounter Visit Diagnoses Diagnosis Cirrhosis, 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
--- OUTSIDE RECORDS SUMMARY | 2023-09-06 01:41 | XMS_ITS | Encounter Summary ---
Author Organization [facility] Address [facility] [place] [address] Care Team Providers Care Drum Dyeing Machine Operator Name Role Phone Bernadette Childs MD Primary Care Provider [phone] Encounter Details Date Type Department Care Team (Late st Contact Info) Description 05/28/2013 10:10 AM EDT Follow-Up Cardiology at [address] [address] Cornelius Sullivan II, MD [facility] [place] [address] Constrictive pericarditis (Primary Dx) Discharge Disposition: Home Social History [...] Sign Reading Time Taken Comments Blood Pressure 94/64 05/28/2013 10:08 AM EDT Pulse 60 05/28/2013 10:08 AM EDT Temperature - - Respiratory Rate - - Oxygen Saturation 97% 05/28/2013 10:08 AM EDT Inhaled Oxygen Concentration - - Weight 86.2 kg (190 lb) 05/28/2013 10:08 AM EDT Height 157.5 cm (5' 2) 05/28/2013 10:08 AM EDT Body Mass Index 34.75 05/28/2013 10:08 AM EDT documented in this encounter Progress Notes * Cornelius Sullivan II - 05/28/2013 5:57 PM EDT Patient Name: Teresita Beltre : 1965 Age: 47 y.o. Date of Visit: 05-28-2013 Primary Care Physician: BERNADETTE CHILDS MD Problem [...] tests) I last saw Mrs. Beltre on March 19, 2013, at the time of her cardiac catheterization. She was diagnosed with restrictive pericarditis and had normal coronary arteries. She was referred to Dr. Larry who subsequently referred her to Dr. Waterman at [facility] for a pericardial stripping procedure. Dr. Larry was hesitant to operate here because of her documented cirrhosis and the risk of perioperative liver failure. Mrs. Beltre underwent surgery on May 04 and was discharged on May 09. Her postoperative course was relatively smooth and without complications noted on the discharge summary. Since returning home, she has been bothered by an inability to take a deep breath. She feels that her lung expansion is limited although there is no pain. Her appetite has improved although she thinks that her fluoxetine may be causing some nausea. Her night sweats have decreased. She has not had any recurrent lower extremity edema, but this went away prior to surgery with the spironolactone and Lasix. She feels that her abdominal swelling has decreased. Current Medications: Current Outpatient Rx Name Route Sig Dispense Refill ??? ALBUTEROL SULFATE 2.5 MG/3 ML (0.083 %) SOLUTION FOR NEBULIZATION Nebulization Take 2.5 mg by nebulization 3 times daily. ??? METOPROLOL SUCCINATE ER 25 MG TABLET,EXTENDED RELEASE 24 HR Oral Take 25 mg by mouth daily. ??? HYDROMORPHONE 4 MG TABLET Oral Take 1 tablet by mouth every 4 hours as needed for Pain. 20 tablet 0 ??? FLUOXETINE 20 MG CAPSULE Oral Take 40 mg by mouth daily. ??? FUROSEMIDE 20 MG TABLET Oral Take 1 tablet by mouth daily. DIRECTED 30 tablet 11 ??? SPIRONOLACTONE 100 MG TABLET Oral Take 1 tablet by mouth daily. 90 tablet 1 ??? PANTOPRAZOLE 40 MG TABLET,DELAYED RELEASE Oral Take 40 mg by mouth daily. ??? TRAZODONE 100 MG TABLET Oral Take 150 mg by mouth nightly. ??? DIPHENHYDRAMINE 25 MG CAPSULE Oral Take 1-2 capsules by mouth every 6 hours as needed for Itching. 30 capsule ??? ALBUTEROL SULFATE HFA 90 MCG/ACTUATION AEROSOL INHALER Inhalation Inhale 2 puffs into the lungs every 4 hours as needed. Use with spacer ??? LORAZEPAM 1 MG TABLET 1-2 tablets at bedtime 60 tablet 3 ??? FLUTICASONE 250 MCG-SALMETEROL 50 MCG/DOSE BLISTR POWDR FOR INHALATION Inhalation Inhale 1 puff into the lungs as needed. On physical exam, heart rate is 60 and regular. Blood pressure is 94/64. Chest is clear to auscultation. There are no rales or wheezes noted. Chest exam is significant for a midline incision and a nicely-healing scar. Cardiac exam reveals normal S1 and S2. No rub, murmur, or gallop is appreciated. Carotid upstrokes are brisk. There are no carotid bruits. Jugular venous pressure is decreased from my last exam. It now appears to be roughly normal. Abdominal exam still shows increased liver, otherwise benign. The liver is not pulsatile. Examination of the extremities reveals no edema. Assessment: Nesjj-[id number] female now status post pericardial stripping for constrictive pericarditis. Apparently an echo was done on May 09 before she left [facility] and we do not have those results. She is due to follow-up with Dr. Waterman on June 29. It is hard to tell how much better she is at this point, since there may be some lingering respiratory compromise from the operation. It does appear that her jugular venous pressures are down. Her heart rate is also down. She has been started on metoprolol. Although her scar has been weeping, at this point, it looks very clean. Plan: 1. Continue current medications. 2. Check liver functions, BMP, and CBC. 3. Recommend gradual progression in activity. 4. Follow-up with Dr. Waterman at [facility] in early June. 5. Follow-up with me in this clinic in two months. 6. Retrieve the results of her final echo as well as the operative report from [facility]. Thirty minutes of this 40 minute visit was spent in face to face consultation with the patient. Communication sent to Bernadette Childs M.D. documented in this encounter Procedure Notes * Provider, Scanning - 05/30/2013 10:15 AM EDTAssociated Order(s): SCAN DOC: ECHO * Provider, Scanning - 05/30/2013 10:15 AM EDTAssociated Order(s): SCAN DOC: ECG documented in this encounter Miscellaneous Notes * Miscellaneous - Provider, Scanning - 05/30/2013 10:14 AM EDT documented in this encounter Plan of Treatment Upcoming Encounters Date Type Department Care Team (Late st Contact Info) Description 09/14/2023 11:00 AM EDT Office Visit [place] [address] Mague Johnson MD [facility] [place] [address] documented as of this encounter Procedures Procedure Name Priority Date/Time Associated Diagnosis Comments ECHO SCAN (SCAN) 05/30/2013 10:1 5 AM EDT ECG SCAN 05/30/2013 10:15 AM EDT DIFFERENTIAL, AUTOMATED Routine 05/28/2013 11:43 AM EDT CBC (WITH DIFF) Routine 05/28/2013 11:43 AM EDT Constrictive pericarditis HEPATIC FUNCTION PANEL Routine 05/28/2013 11:43 AM EDT Constrictive pericarditis BASIC METABOLIC PANEL (NON-FASTING) Routine 05/28/2013 11:43 AM EDT Constrictive pericarditis documented in this encounter Results * SCAN DOC: ECHO (05/30/2013 10:15 AM EDT) Anatomical Region Laterality Modality Other Narrative 05/30/2013 11:01 AM EDT Procedure Note Provider, Scanning - 05/30/2013 10:15 AM EDT Scanning Provider MEDIA MGR SCAN EXT O RDR/RSLT * SCAN DOC: ECG (05/30/2013 10:15 AM EDT) Narrative 05/30/2013 11:01 AM EDT Procedure Note Provider, Scanning - 05/30/2013 10:15 AM EDT Scanning Provider MEDIA MGR SCAN EXT O RDR/RSLT * Differential, Automated (05/28/2013 11:43 AM EDT) Neutrophils % 54.5 34.0 - 71.0 % CERNER MILLENNIUM Neutr Abs (ANC) 5.10 1.50 - 6.30 x10(3)/mcL CERNER MILLENNIUM Lymphocytes % 29.1 19.0 - 53.0 % CERNER MILLENNIUM Lymphocytes Abs 2.7 1.0 - 3.6 x10(3)/mcL CERNER MILLENNIUM Monocytes % 10.0 4.0 - 13.0 % CERNER MILLENNIUM Monocyte Abs 0.9 0.2 - 1.0 x10(3)/mcL CERNER MILLENNIUM Eosinophils % 5.7 0.0 - 7.0 % CERNER MILLENNIUM Eosinophils Abs 0.5 0.0 - 0.5 x10(3)/mcL CERNER MILLENNIUM Basophils % 0.6 0.0 - 2.0 % CERNER MILLENNIUM Basophils Abs 0.1 0.0 - 0.2 x10(3)/mcL CERNER MILLENNIUM Immature Gran % 0.10 0.00 - 0.66 % CERNER MILLENNIUM Comment: Immature granulocytes(IG's)percentage and absolute count will include metamyelocytes, myelocytes, and promyelocytes. Blood smears from CBCs yielding IG's will be scanned manually for concordance. If this scan disagrees with the automated IG or if promyelocytes are noted, a manual differential will be performed. Ashley Gran Abs 0.01 0.00 - 0.05 x10(3)/mcL CERNER MILLENNIUM Blood specimen (specimen) 05/28/2013 11:43 AM EDT 05/28/2013 11:50 AM EDT Cornelius Sullivan II, MD HEMATOLOGY [facility] * Basic Metabolic Panel (non-fasting) (05/28/2013 11:43 AM EDT) [facility] Glucose Lvl 148 60 - 199 mg/dL CERNER MILLENNIUM Comment:Diabetes: >=200 mg/d L plus symptoms BUN 10 8 - 18 mg/dL CERNER MILLENNIUM Creatinine 0.95 0.70 - 1.20 mg/dL CERNER MILLENNIUM Comment: Please note that the pediatric reference intervals supplied above were not validated at [facility]. Results from pediatric patients should be interpreted in conjunction to the patient's age, height and muscle mass. Sodium 137 135 - 145 mmol/L CERNER MILLENNIUM Potassium 4.7 3.5 - 5.0 mmol/L CERNER MILLENNIUM Comment: Please note: ??Patients with WBC >100,000 may have falsely elevated Potassium levels. ??For accurate Potassium quantification in these patients send serum separator tube (gold top) for subsequent determinations. ??Contact the Clinical Chemistry Laboratory if there are any questions. Chloride 101 98 - 107 mmol/L CERNER MILLENNIUM CO2 26 22 - 31 mmol/L CERNER MILLENNIUM Anion Gap 10 5 - 15 mmol/L CERNER MILLENNIUM Calcium 9.8 8.5 - 10.5 mg/dL CERNER MILLENNIUM Estimated [...] internet browser. http://www.nkdep.nih.gov/lab-evaluation.shtml http://www.kidney.org/professionals/ Blood specimen (specimen) 05/28/2013 11:43 AM EDT 05/28/2013 11:50 AM EDT Narrative Resulting Agency Comment Spec In Lab Cornelius Sullivan II, MD CHEMISTRY ORDER DEN[facility] * (ABNORMAL) CBC (with Diff) (05/28/2013 11:43 AM EDT) WBC 9.4 4.0 - 10.0 x10(3)/mcL CERNER MILLENNIUM RBC 5.31(H) 3.93 - 5.22 x10(6)/mcL CERNER MILLENNIUM Hemoglobin 14.5 11.2 - 15.7 gm/dL CERNER MILLENNIUM Hematocrit 42.9 34.0 - 45.0 % CERNER MILLENNIUM MCV 80.8 79.0 - 94.0 fL CERNER MILLENNIUM MCH 27.3 26.6 - 32.2 pg CERNER MILLENNIUM MCHC 33.8 32.0 - 36.5 gm/dL CERNER MILLENNIUM Platelets 403(H) 145 - 370 x10(3)/mcL CERNER MILLENNIUM RDWSD 52.1(H) 35.0 - 46.0 fL CERNER MILLENNIUM RDWCV 17.6(H) 10.9 - 14.4 % CERNER MILLENNIUM MPV 10.0 9.0 - 12.0 fL CERNER MILLENNIUM Blood specimen (specimen) 05/28/2013 11:43 AM EDT 05/28/2013 11:50 AM EDT Narrative Resulting Agency Comment Spec In Lab Cornelius Sullivan II, MD HEMATOLOGY [facility] Performing Organization Address City/[facility] Co de Phone Number CERNER MILLENNIUM * (ABNORMAL) Hepatic Function Panel (05/28/2013 11:43 AM EDT) Total Protein 7.3 6.4 - 8.3 gm/dL CERNER MILLENNIUM Albumin 4.1 3.2 - 5.2 gm/dL CERNER MILLENNIUM AST 29 0 - 30 unit/L CERNER MILLENNIUM ALT 28 0 - 30 unit/L CERNER MILLENNIUM Alk Phos 270(H) 40 - 104 unit/L CERNER MILLENNIUM Total Bilirubin 0.4 0.2 - 1.3 mg/dL CERNER MILLENNIUM Bili, Direct 0.1 0.0 - 0.3 mg/dL CERNER MILLENNIUM Blood specimen (specimen) 05/28/2013 11:43 AM EDT 05/28/2013 11:50 AM EDT Narrative Resulting Agency Comment Spec In Lab Cornelius Sullivan II, MD CHEMISTRY ORDER DENISHA Performing Organization Address City/[facility] Co de Phone Number KARO PENAIUM documented in this encounter Visit Diagnoses Diagnosis Constrictive pericarditis- Primary documented in this encounter Care Teams Drum Dyeing Machine Operator Relationship Specialty Start Date End Date Bernadette Childs MD [address] [place] [address] PCP - General 04/03/12 07/27/20 documented as of this encounter
--- OUTSIDE RECORDS SUMMARY | 2023-09-06 01:41 | XMS_ITS | Encounter Summary ---
Author Organization [facility] Address [facility] [place] [address] Care Team Providers Care Mine Supervisor Name Role Phone Bernadette Childs MD Primary Care Provider [phone] Encounter Details Date Type Department Care Team (Late st Contact Info) Description 03/14/2013 1:10 PM EST Office Visit Cardiology at [address] [address] Cornelius Sullivan II, MD [facility] [place] [address] Pericardial disease (Primary Dx) Discharge Disposition: Home Social History [...] Sign Reading Time Taken Comments Blood Pressure 132/88 03/14/2013 1:14 PM EST Pulse 80 03/14/2013 1:14 PM EST Temperature - - Respiratory Rate - - Oxygen Saturation 100% 03/14/2013 1:14 PM EST room air Inhaled Oxygen Concentration - - Weight 86.4 kg (190 lb 8 oz) 03/14/2013 1:14 PM EST Height 158 cm (5' 2.21) 03/14/2013 1:14 PM EST Body Mass Index 34.61 03/14/2013 1:14 PM EST documented in this encounter Progress Notes * Cornelius Sullivan II - 03/15/2013 1:06 PM EST Patient Name: Teresita Beltre : 1965 Age: 47 y.o. Date of Visit: 03-14-2013 Primary Care Physician: BERNADETTE CHILDS MD Problem List: Patient Active Problem List Diagnosis ??? Right heart failure ??? Cardiac cirrhosis ??? 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 Ascites ??? Abdominal pain, RUQ (right upper quadrant) ??? Abnormal LFTs (liver function tests) I am seeing Mrs. Beltre for the first time. She has been referred for cardiac evaluation by Jessie Madera. Mrs. Beltre???s problems began in early 2011 when she began experiencing chest pain, fatigue, anddyspnea. She was eventually admitted to the hospital in [facility] and had a stress nuclear study which was negative for ischemia as well as a CT scan (PE protocol) which was negative. The CT scandid show a pericardial effusion, and she was subsequently diagnosed with pericarditis. She was treated at that time by Dr. Lawrence. The etiology of the pericarditis was unknown. A viral etiology wasmentioned. She was treated with ibuprofen as well as colchicine. A follow-up echo in July of 2011 showed that her effusion had resolved. Eventually, her chest pain improved but she had persistent fatigue and developed anorexia and nausea as well as night sweats and abdominal swelling. She was also noted to have an elevated alkaline phosphatase. She was referred to Dr. Wylie at [facility] where an MRI showed moderate ascites, and endoscopy showed GAVE, treated with cautery. She was subsequently referred to Dr. Torrez here who performed a liver biopsy as well as a cholecystectomy with cholangiography. The liver biopsy returned as consistent with cardiac cirrhosis. She was subsequentlyreferred to Dr. Farnsworth who got an abdominal [facility] Because of her history of pericarditis, she is now referred to me for consideration of possible constrictive pericarditis. At present, she has had progressive abdominal swelling although it has improved with the addition of Lasix and spironolactone. Her nausea seems to have gone away, but she still has fatigue and functional class 3 exertional dyspnea as well as continued night sweats. She denies any chest discomfort. Past medical history: 1. Asthma for three or four years, thought to be reactive airway disease. 2. History of hypertension for three years, previously treated with lisinopril and hydrochlorothiazide, now not treated. 3. ???Pre-diabetes?? because of an elevated blood sugar while in the hospital for her cholecystectomy. 4. History of preeclampsia with her . Family history: Rheumatoid arthritis in an uncle and two brothers, coronary artery disease in her mother who of an DE at age 64. Allergies: As noted in the EMR. Social history: She has been for 18 years. One child still lives at home, age 16. 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 She has been a social drinker in the past. She currently does not drink. She does not smoke. She quit smoking 17 years ago after a jsqqa-[id number]-[id number] history. Current Medications: Current Outpatient Rx Name Route Sig Dispense Refill ??? HYDROMORPHONE 2 MG TABLET Oral Take 1-2 tablets by mouth every 4 hours as needed for Pain. 30 tablet 0 ??? FUROSEMIDE 20 MG TABLET Oral Take 1 tablet by mouth daily. DIRECTED 30 tablet 11 ??? SPIRONOLACTONE 100 MG TABLET Oral Take 1 tablet by mouth daily. 90 tablet 1 ??? ALBUTEROL SULFATE HFA 90 MCG/ACTUATION AEROSOL INHALER Inhalation Inhale 2 puffs into the lungs every 4 hours as needed. Use with spacer ??? LORAZEPAM 1 MG TABLET 1-2 tablets at bedtime 60 tablet 3 ??? FLUTICASONE-SALMETEROL 250 MCG-50 MCG/DOSE DISK POWDER FOR INHALATION Inhalation Inhale 1 puff into the lungs as needed. ??? PANTOPRAZOLE 40 MG TABLET,DELAYED RELEASE Oral Take 40 mg by mouth daily. ??? TRAZODONE 100 MG TABLET Oral Take 150 mg by mouth nightly. On physical exam, heart rate is 80. Blood pressure is 132/88. Chest is clear to auscultation. Cardiac exam reveals normal S1 and S2. No knock is present. No rub or murmur is present. Carotid upstrokes are brisk. There are no carotid bruits. Jugular venous pressure is elevated with a prominent X Jan descent. Kussmaul sign is present. Abdominal exam is significant for hepatomegaly and possibly spl enomegaly. There is mild tenderness in the areas of her recent incisions. There may be ascites. Examination of the extremities reveals intact pulses in the femoral and posterior tibial areas bilaterally. Dorsalis pedis pulses are decreased. There is no lower extremity edema. Neurological exam is grossly nonfocal. Echocardiogram performed today shows normal LV function, a septal bounce, a thickened pericardium, and evidence of elevated right atrial pressures. There is no clear variation in her LV inflow. The pericardium is moderately thickened. Electrocardiogram reveals right atrial enlargement and nonspecific ST-T wave abnormality. Assessment: Paorn-exl-bbig-old female with a history of pericarditis almost two years ago who has had progressive symptoms of right-sided failure and has recently been diagnosed with probable cardiaccirrhosis. Her echo is consistent with elevated right-sided pressures and the pericardium is moderately thickened. Her exam confirms elevated jugular venous pressure, and findings are consistent withconstriction. She has been on diuretics. I do not think that she is volume overloaded, so the differential would include effusive-constrictive pericarditis (not suggested by echo) and restrictive cardiomyopathy. Iwould like to get a cardiac MRI to look at her septal motion as well as the thickness of her pericardium. I would also like to send off an NADER and rheumatoid factor as well as iron studies as possible explanations for a restrictive process. Finally, she needs a cardiac catheterization to look at her coronaries in advance of possible surgery as well as do right and left heart evaluation for constriction versus restriction. Plan: 1. Blood work today. 2. Cardiac MRI. 3. Cardiac catheterization, assessment date today. Communication sent to Bernadette Childs M.D./Karen Farnsworth M.D. * Trey Sargent LPN - 03/14/2013 3:57 PM EST Pre Cardiac Cath/PTCA Nursing Note Date of Cath: Indication: Date of Labs:(within 30 days) Date of EKG: Medications: Stop Metformin 48 hour prior ( ) Last dose Insulin orders given Stop Coumadin days prior ( )Last dose Does patient have a contrast or shellfish allergy? No If yes, was Prednisone RX given?N/A Back Pain management: Understands potential for back pain.yes Identifies pain management strategies. yes Education: Patient understands purpose of cardiac cath/PTCA. yes Patient understands pre and post procedure care. yes Comments:Patient educated on pre cath instructions, patient instructed to hold diuretics and prozacthe morning of the procedure. Cath scheduled for Tuesday the , arrival time of 0630 documented in this encounter Procedure Notes * Provider, Trinh - 03/19/2013 10:40 AM ESTAssociated Order(s): CARDIAC CATHETERIZATION documented in this encounter Plan of Treatment Upcoming Encounters Date Type Department Care Team (Late st Contact Info) Description 09/14/2023 11:00 AM EDT Office [place] [address] aMgue Johnson MD [facility] [place] [address] documented as of this encounter Procedures Procedure Name Priority Date/Time Associated Diagnosis Comments CARDIAC CATHETERIZATION Routine 03/20/19 14 10:42 AM EST Pericardial disease DIFFERENTIAL, AUTOMATED Routine 03/14/19 14 3:28 PM EST IRON AND TIBC Routine 03/14/2013 3:28 PM EST Pericardial disease PROTHROMBIN TIME Routine 03/14/2013 3:28 PM EST Pericardial disease CBC (WITH DIFF) Routine 03/14/2013 3:28 PM EST Pericardial disease RHEUMATOID FACTOR, QUANT Routine 03/14/2013 3:28 PM EST Pericardial disease NADER ANTIBODY SCREEN Routine 03/14/2013 3 :28 PM EST Pericardial disease FERRITIN Routine 03/14/2013 3:28 PM EST Pericardial disease BASIC METABOLIC PANEL (NON-FASTING) Routine 03/14/2013 3:28 PM EST Pericardial disease EKG 12-LEAD Routine 03/14/2013 2:33 PM EST Pericardial disease documented in this encounter Results * Cardiac Catheterization (03/20/2013 10:42 AM EST) Anatomical Region Laterality Modality Other Narrative 03/20/2013 6:57 PM EST Procedure Note Provider, Scanning - 03/19/2013 10:40 AM EST Cornelius Sullivan II, MD CARDIAC CATH OR DERABLES * MRI- Cardiac morph/func with/WO contrast (03/16/2013 2:43 PM EST) Anatomical Region Laterality Modality Magnetic Resonan ce 03/16/2013 2:43 PM EST Narrative 03/17/2013 3:00 PM EST Examination MR Cardiac morphology/function with/without contrast Clinical History ? constrictive pericarditis Pericardial thickness, Septal motion Technique Axial and short-axis double inversion recovery without contrast. Axial and short-axis triple inversion recovery without contrast. Short and long axis cine myocardial tagging without contrast. Short and long axis cine steady-state free precession without contrast. ?? Short and long axis delayed enhancement after contrast administration. Contrast: ??19 mL Magnevist. ?? Post processing performed on an independent computer workstation including volumetric functional analysis. ?? Comparison No cardiac MR chest CT. Images of the base of the chest from 01/10/[address] from an outside institution. ?? Findings Normal morphology and structure of the cardiac chambers. ?? No abnormal myocardial signal on non contrast series. ?? No myocardial delayed enhancement after intravenous contrast administration. ?? Smooth 4-5 mm pericardial thickening along the right heart border, milder by the apex and extending toward the left. Pericardium is hypointense on all sequences consistent with chronic fibrotic thickening. (No calcifications by the visible portion of the pericardium on 01/17/2013 CT.) ?? No pericardial adhesions along the right side of the heart are identified. ?? No pericardial effusion is seen. ?? Transient near-flattening of the interventricular septum during early systole, consistent with septal bounce. ?? No other wall motion abnormalities. ?? No valvulopathy identified. ?? Normal contour and caliber of the great vessels. Quantitative data: ?? Left ventricle: ?? Anteroseptal wall thickness: 5.8 mm ?? Posterolateral wall thickness: 5.5 mm ?? End-diastolic dimension: 4.2 cm ?? End-systolic dimension: 3.3 cm ?? End-diastolic volume: 101 mL ?? End systolic volume: 41 mL ?? Stroke volume: 60 mL ?? Ejection fraction: 59 % ?? Left ventricular mass: approximately 63 g Right ventricle: ?? End-diastolic volume: 100 mL ?? End-systolic volume: 41 mL ?? Stroke volume: 59 mL ?? Ejection fraction: 59 % ?? Impression Fibrotic pericardial thickening predominantly along the right heart border, then tapering after the apex of the pericardium and extends toward the left. No pericardial adhesions seen along the right side of the heart. No pericardial effusion seen. Transient early diastolic septal bounce. No myocardial pathology identified. Procedure Note Janelle Duran MD - 03/17/2013 Examination MR Cardiac morphology/function with/without contrast Clinical History ? constrictive pericarditis Pericardial thickness, Septal motion Technique Axial and short-axis double inversion recovery without contrast. Axial and short-axis triple inversion recovery without contrast. Short and long axis cine myocardial tagging without contrast. Short and long axis cine steady-state free precession without contrast. Short and long axis delayed enhancement after contrast administration. Contrast: 19 mL Magnevist. Post processing performed on an independent computer workstation including volumetric functional analysis. Comparison No cardiac MR chest CT. Images of the base of the chest from 01/10/[address] from an outside institution. Findings Normal morphology and structure of the cardiac chambers. No abnormal myocardial signal on non contrast series. No myocardial delayed enhancement after intravenous contrastadministration. Smooth 4-5 mm pericardial thickening along the right heart border, milderby the apex and extending toward the left. Pericardium is hypointense on all sequences consistent with chronic fibrotic thickening. (No calcificationsby the visible portion of the pericardium on 01/17/2013 CT.) No pericardial adhesions along the right side of the heart are identified. No pericardial effusion is seen. Transient near-flattening of the interventricular septum during earlysystole, consistent with septal bounce. No other wall motion abnormalities. No valvulopathy identified. Normal contour and caliber of the great vessels. Quantitative data: Left ventricle: Anteroseptal wall thickness: 5.8 mm Posterolateral wall thickness: 5.5 mm End-diastolic dimension: 4.2 cm End-systolic dimension: 3.3 cm End-diastolic volume: 101 mL End systolic volume: 41 mL Stroke volume: 60 mL Ejection fraction: 59 % Left ventricular mass: approximately 63 g Right ventricle: End-diastolic volume: 100 mL End-systolic volume: 41 mL Stroke volume: 59 mL Ejection fraction: 59 % Impression Fibrotic pericardial thickening predominantly along the right heartborder, then tapering after the apex of the pericardium and extends toward theleft. No pericardial adhesions seen along the right side of the heart. Nopericardial effusion seen. Transient early diastolic septal bounce. No myocardialpathology identified. Cornelius Sullivan II, MD [facility] [place] ORDERAB LES * Differential, Automated (03/14/2013 3:28 PM EST) Neutrophils % 60.5 34.0 - 71.0 % CERNER MILLENNIUM Neutr Abs (ANC) 5.07 1.50 - 6.30 x10(3)/mcL CERNER MILLENNIUM Lymphocytes % 29.0 19.0 - 53.0 % CERNER MILLENNIUM Lymphocytes Abs 2.4 1.0 - 3.6 x10(3)/mcL CERNER MILLENNIUM Monocytes % 7.6 4.0 - 13.0 % CERNER MILLENNIUM Monocyte Abs 0.6 0.2 - 1.0 x10(3)/mcL CERNER MILLENNIUM Eosinophils % 2.4 0.0 - 7.0 % CERNER MILLENNIUM Eosinophils Abs 0.2 0.0 - 0.5 x10(3)/mcL CERNER MILLENNIUM Basophils % 0.4 0.0 - 2.0 % CERNER MILLENNIUM Basophils Abs 0.0 0.0 - 0.2 x10(3)/mcL CERNER MILLENNIUM Immature [...] 0.05 x10(3)/mcL CERNER MILLENNIUM Blood specimen (specimen) 03/14/2013 3:28 PM EST 03/14/2013 3:40 PM EST Cornelius Sullivan II, MD HEMATOLOGY [facility] Organization Address City/State/ZIP Co de Phone Number CERNER MILLENNIUM * Ferritin (03/14/2013 3:28 PM EST) [facility] Ferritin 78 15 - 150 ng/mL CERNER MILLENNIUM Comment: Pediatric reference ranges not verified at [facility], interpret with caution. Reference ranges for females greater than 50 years of age approach values for men, i.e., 30-400 ng/mL. Blood specimen (specimen) 03/14/2013 3:28 PM EST 03/14/2013 3:40 PM EST Narrative Resulting Agency Comment Spec In Lab Cornelius Sullivan II, MD CHEMISTRY ORDER DENISHA [facility] JAMESENNIUM * (ABNORMAL) Iron and TIBC (03/14/2013 3:28 PM EST) Iron 40 30 - 150 mcg/dL CERNER MILLENNIUM TIBC 386 250 - 450 mcg/dL CERNER MILLENNIUM Iron Saturation 10(L) 20 - 50 % CERN ER MILLENNIUM Blood specimen (specimen) 03/14/2013 3:28 PM EST 03/14/2013 3:40 PM EST Narrative Resulting Agency Comment Spec In Lab Cornelius Sullivan II, MD CHEMISTRY ORDER DENISHA Performing Organization Address City/[facility] Co de Phone Number [facility] JAMES[facility]UM * Rheumatoid factor, quant (03/14/2013 3:28 PM EST) RF 10 <=14 IU/mL [facility] MILLENNIUM Blood specimen (specimen) 03/14/2013 3:28 PM EST 03/14/2013 3:40 PM EST Narrative Resulting Agency Comment Spec In Lab Cornelius Sullivan II, MD IMMUNOLOGY [facility] JAMESENNIUM * NADER (03/14/2013 3:28 PM EST) NADER Neg Neg CERNER MILLENNIUM Blood specimen (specimen) 03/14/2013 3:28 PM EST 03/15/2013 8:05 AM EST Narrative Resulting Agency Comment Spec In Lab Cornelius Sullivan II, MD IMMUNOLOGY [facility] [place] JAMES[facility]UM * (ABNORMAL) Prothrombin Time (03/14/2013 3:28 PM EST) PT 15.4(H) 12.0 - 15.0 sec CERNER MILLENNIUM Comment: [facility] Transfusion Committee Guidelines: INR less than 2.0, PTT less than OR equal to 43.5 seconds, or Fibrinogen greater than or equal to 100 mg/dl indicate adequate procoagulant activity for hemostasis in patients without underlying bleeding disorders. INR 1.2(H) 0.9 - 1.1 CERNER MILLENNIUM Blood specimen (specimen) 03/14/2013 3:28 PM EST 03/14/2013 3:40 PM EST Narrative Resulting Agency Comment Spec In Lab Cornelius Sullivan II, MD HEMATOLOGY [facility] CERNER MILLENNIUM * Basic Metabolic Panel (non-fasting) (03/14/2013 3:28 PM EST) Glucose Lvl 78 60 - 199 mg/dL CERNER MILLENNIUM Comment:Diabetes: >=200 mg/d L plus symptoms BUN 10 8 - 18 mg/dL CERNER MILLENNIUM Creatinine 0.85 0.70 - 1.20 mg/dL CERNER MILLENNIUM Comment: Please note that the pediatric reference intervals supplied above were not validated at [facility]. Results from pediatric patients should be interpreted in conjunction to the patient's age, height and muscle mass. Sodium 141 135 - 145 mmol/L CERNER MILLENNIUM Potassium 4.3 3.5 - 5.0 mmol/L CERNER MILLENNIUM Comment: Please note: ??Patients with WBC >100,000 may have falsely elevated Potassium levels. ??For accurate Potassium quantification in these patients send serum separator tube (gold top) for subsequent determinations. ??Contact the Clinical Chemistry Laboratory if there are any questions. Chloride 103 98 - 107 mmol/L CERNER MILLENNIUM CO2 [...] internet browser. http://www.nkdep.nih.gov/lab-evaluation.shtml http://www.kidney.org/professionals/ Blood specimen (specimen) 03/14/2013 3:28 PM EST 03/14/2013 3:40 PM EST Narrative Resulting Agency Comment Spec In Lab Cornelius Sullivan II, MD CHEMISTRY ORDER DENISHA Performing Organization Address [facility]/ZIP Co de Phone Number CERNER MILLENNIUM * (ABNORMAL) CBC (with Diff) (03/14/2013 3:28 PM EST) WBC 8.4 4.0 - 10.0 x10(3)/mcL CERNER MILLENNIUM RBC 5.30(H) 3.93 - 5.22 x10(6)/mcL CERNER MILLENNIUM Hemoglobin 13.4 11.2 - 15.7 gm/dL CERNER MILLENNIUM Hematocrit 40.7 34.0 - 45.0 % CERNER MILLENNIUM MCV 76.8(L) 79.0 - 94.0 fL CERNER MILLENNIUM MCH 25.3(L) 26.6 - 32.2 pg CERNER MILLENNIUM MCHC 32.9 32.0 - 36.5 gm/dL CERNER MILLENNIUM Platelets 298 145 - 370 x10(3)/mcL CERNER MILLENNIUM RDWSD 47.0(H) 35.0 - 46.0 fL CERNER MILLENNIUM RDWCV 16.7(H) 10.9 - 14.4 % CERNER MILLENNIUM MPV 10.1 9.0 - 12.0 fL CERNER MILLENNIUM Blood specimen (specimen) 03/14/2013 3:28 PM EST 03/14/2013 3:40 PM EST Narrative Resulting Agency Comment Spec In Lab Cornelius Sullivan II, MD HEMATOLOGY ORDE RABLES Performing Organization Address City/[facility]/ZIP Co de Phone Number CERNER MILLENNIUM * EKG 12 Lead (03/14/2013 2:33 PM EST) Ventricular rate 81 BPM MUSE SYSTEM Atrial Rate 81 BPM MUSE SYSTEM P-R Interval 142 ms MUSE SYSTEM QRS Duration 70 ms MUSE SYSTEM Q-T Interval 396 ms MUSE SYSTEM QTC Calculated (Bezet) 460 ms MUSE SYSTEM Calculated P Elrama 72 degrees MUSE SYSTEM Calculated R [place]rama 73 degrees MUSE SYSTEM Calculated T Elrama 38 degrees MUSE SYSTEM INTERPRETATION Normal sinus rhythm Right atrial enlargement Nonspecific ST and T wave abnormality Prolonged QT Abnormal ECG No previous ECGs available I personally reviewed the tracing and edited the fellows interpretation Confirmed by fellow MD Victoria, Joaquin Oneil ([id number]) on 03/15/2013 8:40:16 AM Confirmed by MD MORIS, CHANDANA ([id number]) on 03/15/2013 2:21:05 PM MUSE SYSTEM 03/14/2013 2:33 PM EST 03/15/2013 2:21 PM EST Cornelius Sullivan II, MD ECG ORDERABLES MUSE SYSTEM documented in this encounter Visit Diagnoses Diagnosis Pericardial disease- Primary Unspecified disease of pericardium Pericardial disease Unspecified disease of pericardium Pericardial disease Unspecified disease of pericardium documented in this encounter Care Teams Mine Supervisor Relationship Specialty Start Date End Date Bernadette Childs MD [address] [place] [address] PCP - General 04/03/12 07/27/20 documented as of this encounter
--- OUTSIDE RECORDS SUMMARY | 2023-09-06 01:41 | XMS_ITS | Encounter Summary ---
Author Organization [facility] Address [facility] [place] [address] Care Team Providers Care Museum Exhibit Technician Name Role Phone Bernadette Childs MD Primary Care Provider [phone] Encounter Details Date Type Department Care Team (Late st Contact Info) Description 04/02/2013 1:40 PM EST Clinical [place] [phone] Social History Tobacco Use Types Packs/Day Years [...] 11:00 AM EDT Office [place] [phone] Mague Johnson MD [facility] [place] [address] documented as of this encounter Visit Diagnoses Not on filedocumented in this encounter Care Teams Museum Exhibit Technician Relationship Specialty Start Date End Date Bernadette Childs MD [address] [facility] [address] [place] [address] PCP - General 04/03/12 07/27/20 documented as of this encounter
--- OUTSIDE RECORDS SUMMARY | 2023-09-06 01:41 | XMS_ITS | Encounter Summary ---
Author Organization [facility] Address [facility] [place] [address] Care Team Providers Care Textbook Associate Name Role Phone Bernadette Childs MD Primary Care Provider [phone] Encounter Details Date Type Department Care Team (Late st Contact Info) Description 03/01/2013 Orders [place] [address] Kala Cox MD [facility] [place] [address] Cirrhosis (Primary Dx) Social History Tobacco Use Types [...] 11:00 AM EDT Office [place] [address] Mague Johnson MD [facility] [place] [address] documented as of this encounter Results * US abdomen complete with vascular (03/06/2013 9:56 AM EST) Anatomical Region Laterality Modality Abdomen Ultrasound 03/06/2013 9:56 AM EST Narrative 03/06/2013 11:11 AM EST ?Abdominal Duplex ? (Signed Final 03/06/2013 11:10 am) Patient Info ID: ? [id number] ? : ??[birth year] (47 yrs) Name: ? TERESITA YEH ? Visit Date: 03/06/2013 09:47 am Performed By Performed By: ?Margoth Thakur RDMS Associate: ? John VOGT, Maritza Attending: ? Inna VOGT, Jerardo Riley Referred By: ? KALA COX MD Service(s) Provided UABDCVASC - Abdominal Complete Survey with ?[id number], 96685 Vascular - [id number], [id number] Indications Pt with newly diagnosed cirrhosis with biopsy suggestive of hepatic outflow obstruction, assess for hepatic vein obstruction Comparison Outside studies: MRI 01/24/13, CT:01/17/13, US:11/21/13. ------- History ------- S/p joellen Feb 19, 2013. ?? History of pericarditis one year ago. ??History of GI Bleed. ----- Liver ----- Right Lobe Length: ?? 22.2 ?? cm Echogenicity/Echotexture: ?? Coarse parenchyma with mild ? capsular nodularity. Portal Veins: ?Patent Hepatic Veins: ?? Patent Comment: ?Enlarged liver. Gallbladder Comment: ?Surgically removed Biliary Tract Intrahepatic Ducts: ?? Normal Extrahepatic Ducts: ?? Normal Common Duct Size: ? 3 ? mm -------- Pancreas -------- Head: ? Limited views Tail: ? Poorly visualized due to overlying bowel Body: ? Visualized ------ Spleen ------ Size (cm) ?L: ??14.1 Comment: ?Mildly enlarged Right Kidney Size (cm) ?L: ??11.4 Cortical Thickness: ?Normal Cortical Echogenicity: ?? Normal Hydronephrosis: ?No sonographic evidence Left Kidney Size (cm) ?L: ??12.2 Cortical Thickness: ?Normal Cortical Echogenicity: ?? Normal Hydronephrosis: ?No sonographic evidence ----- Aorta ----- Comment: ?Normal in caliber --- IVC --- Proximal portion, normal in caliber Fluid Collections Moderate amount ascites seen. Hepatic-Portal Duplex Collaterals: ??Not visualized Main Portal Vein ? PSV: ?? 22.4 ? cm/s Hepatic Artery ?PSV: ?? 61 ? cm/s ?EDV: ?? 21 ? cm/s Hepatic Artery ?RI: ?0.65 Right Hepatic Vein Waveform: ?Patent Middle Hepatic Vein Waveform: ? Patent Left Hepatic Vein Waveform: ? Patent IVC ??Waveform: ?Patent Comment: ?Dilated IVC and Hepatic veins. Impression Ultrasound - Abdomen Complete - Summary 1. Hepatic veins, portal veins and hepatic artery are patent with normal directional flow. 2. Nodular and coarse appearing liver consistent with cirrhosis. No focal hepatic mass. 3. Mild hepatosplenomegaly and small amount of ascites suggesting portal hypertension. 4.. Mildly distended IVC and hepatic veins suggest elevated right sided heart pressures. Ultrasound - Vascular evaluation - Summary The hepatic veins, portal veins and hepatic artery are patent with normal directional flow in the main portal vein. I ??viewed the images and agree with the above interpretation. Thank you for allowing us to participate in the care of TERESITA YEH. Please do not hesitate to call if you have any questions. ? Jerardo Keith MD Electronically Signed Final Report ?? 03/06/2013 11:10 am Film and interpretation reviewed by the attending Procedure Note Jerardo Keith MD - 03/06/2013 Abdominal Duplex (Signed Final 03/06/2013 11:10 am) Patient Info ID: [id number] : [birth year] (47 yrs) Name: TERESITA YEH Visit Date: 03/06/2013 09:47 am Performed By Performed By: Margoth Thakur RDMS Associate: Maritza Lopez MD Attending: Jerardo Keith MD Referred By: KALA COX MD Service(s) Provided UABDCVASC - Abdominal Complete Survey with [id number], 90950 Vascular - [id number], [id number] Indications Pt with newly diagnosed cirrhosis with biopsy suggestive of hepatic outflow obstruction, assess for hepatic vein obstruction Comparison Outside studies: MRI 01/24/13, CT:01/17/13, US:01/11/13. ------- History ------- S/p joellen Feb 19, 2013. History of pericarditis one year ago. History of GI Bleed. ----- Liver ----- Right Lobe Length: 22.2 cm Echogenicity/Echotexture: Coarse parenchyma with mild capsular nodularity. Portal Veins: Patent Hepatic Veins: Patent Comment: Enlarged liver. Gallbladder Comment: Surgically removed Biliary Tract Intrahepatic Ducts: Normal Extrahepatic Ducts: Normal Common Duct Size: 3 mm -------- Pancreas -------- Head: Limited views Tail: Poorly visualized due to overlying bowel Body: Visualized ------ Spleen ------ Size (cm) L: 14.1 Comment: Mildly enlarged Right Kidney Size (cm) L: 11.4 Cortical Thickness: Normal Cortical Echogenicity: Normal Hydronephrosis: No sonographic evidence Left Kidney Size (cm) L: 12.2 Cortical Thickness: Normal Cortical Echogenicity: Normal Hydronephrosis: No sonographic evidence ----- Aorta ----- Comment: Normal in caliber --- IVC --- Proximal portion, normal in caliber Fluid Collections Moderate amount ascites seen. Hepatic-Portal Duplex Collaterals: Not visualized Main Portal Vein PSV: 22.4 cm/s Hepatic Artery PSV: 61 cm/s EDV: 21 cm/s Hepatic Artery RI: 0.65 Right Hepatic Vein Waveform: Patent Middle Hepatic Vein Waveform: Patent Left Hepatic Vein Waveform: Patent IVC Waveform: Patent Comment: Dilated IVC and Hepatic veins. Impression Ultrasound - Abdomen Complete - Summary 1. Hepatic veins, portal veins and hepatic artery are patent with normal directional flow. 2. Nodular and coarse appearing liver consistent with cirrhosis. No focal hepatic mass. 3. Mild hepatosplenomegaly and small amount of ascites suggesting portal hypertension. 4.. Mildly distended IVC and hepatic veins suggest elevated right sided heart pressures. Ultrasound - Vascular evaluation - Summary The hepatic veins, portal veins and hepatic artery are patent with normal directional flow in the main portal vein. I viewed the images and agree with the above interpretation. Thank you for allowing us to participate in the care of TERESITA YEH. Please do not hesitate to call if you have any questions. Jerardo Keith MD Electronically Signed Final Report 03/06/2013 11:10 am Film and interpretation reviewed by the attending Kala Cox MD IMG US GEN ORDERABLE S documented in this encounter Visit Diagnoses Diagnosis Cirrhosis- Primary Cirrhosis of liver without mention of alcohol Cirrhosis Cirrhosis of liver without mention of alcohol documented in this encounter Care Teams Textbook Associate Relationship Specialty Start Date End Date Bernadette Childs MD [address] [place] [address] [address] [facility] [address] [place] [address] PCP - General 04/03/12 07/27/20 documented as of this encounter
--- OUTSIDE RECORDS SUMMARY | 2023-09-06 01:41 | XMS_ITS | Encounter Summary ---
Author Organization [facility] Address [facility] [place] [address] Care Team Providers Care Truck Safety Inspector Name Role Phone Bernadette Childs MD Primary Care Provider [phone] Encounter Details Date Type Department Care Team (Late st Contact Info) Description 03/06/2013 8:51 AM EST - 03/06/2013 11:59 PM EST Hospital En[place] [address] Cirrhosis Social History Tobacco Use Types Packs/Day Years [...] Take 100 mg by mouth nightly. 10/30/2021 ferrous sulfate 324 mg (65 mg iron) TbECIndications:Restles s leg syndrome Take 1 tablet by mouth 3 times daily. 90 tablet 11 04/03/2012 03/14/2013 FLUoxetine (PROZAC) 40 mg capsule 40MG, PO, Once daily 02/10/2006 014 documented as of this encounter Plan of Treatment Upcoming Encounters Date Type Department Care Team (Late st Contact Info) Description 09/14/2023 11:00 AM EDT Office [place] [address] Mague Johnson MD [facility] [place] [address] documented as of this encounter Procedures Procedure Name Priority Date/Time Associated Diagnosis Comments US ABDOMEN COMPLETE WITH VASCULAR Routine 03/06/2013 9:56 AM EST Cirrhosis documented in this encounter Results * US abdomen complete with vascular (03/06/2013 9:56 AM EST) Anatomical Region Laterality Modality Abdomen Ultrasound 03/06/2013 9:56 AM EST Narrative 03/06/2013 11:11 AM EST ?Abdominal Duplex ? (Signed Final 03/06/2013 11:10 am) Patient Info ID: ? [id number] ? : ??[birth year] (47 yrs) Name: ? HERLINDA YEH ? Visit Date: 03/06/2013 09:47 am Performed By Performed By: ?Ofe MONK, Margoth Associate: ? John VOGT, Maritza Attending: ? Inna VOGT, Jerardo Riley Referred By: ? KAREN COX MD Service(s) Provided UABDCVASC - Abdominal Complete Survey with ?[id number], 20502 Vascular - [id number], [id number] Indications Pt with newly diagnosed cirrhosis with [...] us to participate in the care of HERLINDA YEH. Please do not hesitate to call if you have any questions. ? Jerardo Keith MD Electronically Signed Final Report ?? 03/06/2013 11:10 am Film and interpretation reviewed by the attending Procedure Note Jerardo Keith MD - 03/06/2013 Abdominal Duplex (Signed Final 03/06/2013 11:10 am) Patient Info ID: [id number] : 67 (47 yrs) Name: HERLINDA YEH Visit Date: 03/06/2013 09:47 am Performed By Performed By: Margoth Thakur RDMS Associate: Maritza Lopez MD Attending: Jerardo Keith MD Referred By: KAREN COX MD Service(s) Provided UABDCVASC - Abdominal Complete Survey with [id number], 94308 Vascular - [id number], [id number] Indications Pt with newly diagnosed cirrhosis with [...] us to participate in the care of HERLINDA YEH. Please do not hesitate to call if you have any questions. Jerardo Keith MD Electronically Signed Final Report 03/06/2013 11:10 am Film and interpretation reviewed by the attending Karen Cox MD IMG US GEN ORDERABLE S documented in this encounter Visit Diagnoses Diagnosis Cirrhosis Cirrhosis of liver without mention of alcohol documented in this encounter Care Teams Truck Safety Inspector Relationship Specialty Start Date End Date Bernadette Childs MD [address] [place] [address] [address] [place] [address] PCP - General 04/03/12 07/27/20 documented as of this encounter
--- OUTSIDE RECORDS SUMMARY | 2023-09-06 01:41 | XMS_ITS | Encounter Summary ---
[place] [address] Care Team Providers Care Performance Tester Name Role Phone Bernadette Childs MD Primary Care Provider [phone] Encounter Details Date Type Department Care Team (Late st Contact Info) Description 03/26/2013 External Results [place] [address] Social History Tobacco Use Types Packs/Day Years [...] AM EDT Office Visit [place] [address] Mague Johnson MD [facility] [place] [address] documented as of this encounter Visit Diagnoses Not on filedocumented in this encounter Care Teams Performance Tester Relationship Specialty Start Date End Date Bernadette Childs MD [address] [place] [address] PCP - General 04/03/12 07/27/20 documented as of this encounter
--- OUTSIDE RECORDS SUMMARY | 2023-09-06 01:41 | XMS_ITS | Encounter Summary ---
Author Organization [facility] Address [facility] [place] [address] Care Team Providers Care Venetian Blind Washer Name Role Phone Bernadette Childs MD Primary Care Provider [phone] Encounter Details Date Type Department Care Team (Late st Contact Info) Description 06/11/2013 Orders [place] [address] Karen Farnsworth MD [facility] [place] [address] Cirrhosis (Primary Dx) Social History Tobacco Use [...] 11:00 AM EDT Office [place] [address] Mague Johnson MD [facility] [place] [address] documented as of this encounter Visit Diagnoses Diagnosis Cirrhosis- Primary Cirrhosis of liver without mention of alcohol documented in this encounter Care Teams Venetian Blind Washer Relationship Specialty Start Date End Date Bernadette Childs MD [address] [place] [address] PCP - General 04/03/12 07/27/20 documented as of this encounter
--- OUTSIDE RECORDS SUMMARY | 2023-09-06 01:41 | XMS_ITS | Encounter Summary ---
Author Organization [facility] Address [facility] [place] [address] Care Team Providers Care Data Operations Leader Name Role Phone Bernadette Childs MD Primary Care Provider [phone] Encounter Details Date Type Department Care Team (Latest Contact Info) Description 03/14/2013 3:33 PM EST - 03/14/2013 11:59 PM EST Hospital Encounter XRay at [address] [place] [address] Pericardial disease Social History Tobacco Use Types Packs/Day Years [...] 11:00 AM EDT Office [place] [address] Mague Johnson MD [facility] DR [place] [address] documented as of this encounter Procedures Procedure Name Priority Date/Time Associated Diagnosis Comments XR CHEST PA AND LATERAL Routine 03/14/2013 3:46 PM EST Unspecified disease of pericardium documented in this encounter Results * XR chest routine PA & lateral (03/14/2013 3:46 PM EST) Anatomical Region Laterality Modality Chest N/A Radiographic Beatrice ging 03/14/2013 3:46 PM EST Narrative 03/15/2013 5:09 PM EST Examination CHEST ROUTINE 2 VIEWS Clinical History pre cath Comparison Chest radiograph 01/24/2013 Technique PA and lateral chest. Findings Lungs are clear. ??No pleural effusions. ??Pulmonary vascular markings are normal. Cardiomediastinal silhouette is normal. Minimal degenerative changes of the spine. Impression 1. No acute cardiopulmonary findings. Film and interpretation reviewed by the attending Procedure Note Czum, Janelle M, MD - 03/15/2013 Examination CHEST ROUTINE 2 VIEWS Clinical History pre cath Comparison Chest radiograph 01/24/2013 Technique PA and lateral chest. Findings Lungs are clear. No pleural effusions. Pulmonary vascular markings are normal. Cardiomediastinal silhouette is normal. Minimal degenerativechanges of the spine. Impression 1. No acute cardiopulmonary findings. Film and interpretation reviewed by the attending Cornelius Sullivan II, MD IMG DX ORDERABL ES documented in this encounter Visit Diagnoses Diagnosis Pericardial disease Unspecified disease of pericardium documented in this encounter Care Teams Data Operations Leader Relationship Specialty Start Date End Date Bernadette Childs MD [address] [facility] [address] [place] [address] PCP - General 04/03/12 07/27/20 documented as of this encounter
--- OUTSIDE RECORDS SUMMARY | 2023-09-06 01:41 | XMS_ITS | Encounter Summary ---
Author Organization [facility] Address [facility] [place] [address] Care Team Providers Care Software Asset Manager Name Role Phone Bernadette Childs MD Primary Care Provider [phone] Encounter Details Date Type Department Care Team (Late st Contact Info) Description 03/01/2013 Telephone Solid [place] [address] Octaviano Torrez MD [facility] [place] [address] Social History Tobacco Use Types Packs/Day Years [...] encounter Miscellaneous Notes * Telephone Encounter - Ana Suero LPN - 03/01/2013 1:29 PM EST I received a message that patient had called to let us know that she continues to have discomfort, and only has 4 of her pain pills left. I returned her call, and she reports that her pain waxes and wanes, and at times becomes very severe, it radiates to her back, and up to her shoulder. Since she lives at a distance, and Dr Torrez is away, I have asked that she go to her PCP to be seen today or tomorrow. Patient states that she does not wish to see her PCP. I let her know that I would check to see if she could be seen tomorrow in clinic by Dr Ayala, and she stated that she would check tosee if her would be able to bring her tomorrow. I have asked that she go to her local ER ifthe pain becomes more constant/severe. Patient verbalized understanding, and was in agreement with this plan. documented in this encounter Plan of Treatment Upcoming Encounters Date Type Department Care Team (Late st Contact Info) Description 09/14/2023 11:00 AM EDT Office Visit [place] [address] Mague Johnson MD [facility] [place] [address] documented as of this encounter Visit Diagnoses Not on filedocumented in this encounter Care Teams Software Asset Manager Relationship Specialty Start Date End Date Bernadette Childs MD [address] [place] [address] PCP - General 04/03/12 07/27/20 documented as of this encounter
--- OUTSIDE RECORDS SUMMARY | 2023-09-06 01:41 | XMS_ITS | Encounter Summary ---
Author Organization [facility] Address [facility] [place] [address] Care Team Providers Care Wrapper Hand Name Role Phone Bernadette Childs MD Primary Care Provider [phone] Reason for Visit * Reason Comments GI Problem Encounter Details Date Type Department Care Team (Late st Contact Info) Description 03/06/2013 2:00 PM EST Office [place] [address] Karen Cox MD [facility] [place] [address] Cirrhosis, cardiac (Primary Dx) Discharge Disposition: Home Social History [...] Sign Reading Time Taken Comments Blood Pressure 131/75 03/06/2013 1:36 PM EST Pulse 91 03/06/2013 1:36 PM EST Temperature - - Respiratory Rate - - Oxygen Saturation - - Inhaled Oxygen Concentration - - Weight 93.4 kg (206 lb) 03/06/2013 1:36 PM EST Height 158 cm (5' 2.21) 03/06/2013 1:36 PM EST Body Mass Index 37.43 03/06/2013 1:36 PM EST documented in this encounter Patient Instructions * Patient Instructions* Karen Cox MD - 03/06/2013 2:39 PM EST ---Pathologic Diagnosis--- A - Gallbladder, cholecystectomy: gallbladder, negative for diagnostic abnormality. B - Liver, biopsy: Features consistent with chronic venous outflow obstruction. Cirrhosis (see Note). NOTE: The biopsy shows a pattern of repetitive prominent sinusoidal dilatation and possible hemmorhage centering on zone 3 with several areas of adjacent fibrosis. There are scattered clusters of lobular inflammatoty cells. Plasma cells are inconspicuous. Pericellular/perisinusoidal fibrosis is unusually prominent and merges with bridging fibrosis. Residual portal areas are expanded by fibrosishighlighted by trichrome stain. A focal portal inflammatory infiltrate consisting mainly of lymphocytes is present. Ductular reaction is noted. There is no cholestasis, steatosis or significant bile duct injury. Iron stain is negative. In summary, there is no evidence of chronic cholangiopathy. There is also no sufficient evidence to raise a possibility of autoimmune hepatitis. Differential diagnosis includes Budd-Chiari syndrome and constrictive pericarditis in a patient with history of previous pericarditis. Ultrasound of the Liver Today: Abdominal Duplex (Signed Final 03/06/2013 11:10 am) Patient Info ID: [id number] : [birth year] (47 yrs) Name: HERLINDA BELTRE Visit Date: 03/06/2013 09:47 am Performed By Performed By: Margoth Thakur RDMS Associate: Maritza Lopez MD Attending: Jerardo Keith MD Referred By: KAREN COX MD Service(s) Provided UABDCVASC - Abdominal Complete Survey with [id number], [id number] Vascular - [id number], [id number] Indications Pt with newly diagnosed cirrhosis with [...] to participate in the care of HERLINDA BELTRE. Please do not hesitate to call if you have any questions. 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 year old female being seen at the request of Dr. Torrez for evaluation of above. She first became unwell in early 2011 with fatigue. In June of 2011 she was diagnosed with pericarditis possibly by a pericardial effusion on CT scan, but I don't have that report. She was treated with ibuprofen and colchicine with slow improvement. An echo in July 2011 shows LVEF of 65-70%, no effusion, moderate tricuspid regurgitation with PA pressure 30-35. Some time after this illnessher alkaline phosphatase was noted to be elevated. AMA was negative, IgM level normal, ASMA + at 1:20. Over the ensuing year she developed worsening fatigue, nausea, and lower extremity edema. She als o developed iron deficiency anemia. She saw Dr. 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 Colonoscopy was normal. Protonix was started and nausea did get somewhat better. Evaluation also included a RUQ US which revealed a thickened GB wall and some ascites. At this point she was referred to Dr. Torrez and a CCY was performed on 02/19/13. This revealed dark ascitic fluid, an abnormal appearing liver and gallbladder. A liver biopsy showed: ?? Liver, biopsy: Features consistent with chronic venous outflow obstruction. Cirrhosis (see Note). NOTE: The biopsy shows a pattern of repetitive prominent sinusoidal dilatation and possible hemmorhage centering on zone 3 with several areas of adjacent fibrosis. There are scattered clusters of lobular inflammatoty cells. Plasma cells are inconspicuous. Pericellular/perisinusoidal fibrosis is unusually prominent and merges with bridging fibrosis. Residual portal areas are expanded by fibrosis highlighted by trichrome stain. A focal portal inflammatory infiltrate consisting mainly of lymphocytes is present. Ductular reaction is noted. There is no cholestasis, steatosis or significant bile duct injury. Iron stain is negative. In summary, there is no evidence of chronic cholangiopathy. There is also no sufficient evidence to raise a possibility of autoimmune hepatitis. Differential diagnosis includes Budd-Chiari syndrome and constrictive pericarditis in a patient with history of previous pericarditis. She in is now recovering from this surgery. Her symptoms are generalized fatigue, lower extremity edema and some nausea. She admits to some shortness of breath, but it is not a prominent complaint. Prior to her visit she underwent an abd US with dopplers: Ultrasound - Abdomen Complete - Summary 1. Hepatic veins, portal veins and hepatic artery are patent with normal directional flow. 2. Nodular and coarse appearing liver consistent with cirrhosis. No focal hepatic mass. 3. Mild hepatosplenomegaly and small amount of ascites suggesting portal hypertension. 4.. Mildly distended IVC and hepatic veins suggest elevated right sided heart pressures. ROS: Constitutional: weight loss of 40 lbs over one year HEENT: no visual changes, no URI symptoms Cardio: no chest pain Resp: no cough, some SOB, some FIGUEREDO or orthopnea Hem/Lymph: no new lumps or bumps on body GI: see HPI : no dysuria Integumentary: no new rashes Musculoskeletal: no new joint pains Neuro: no new numbness, weakness in extremities PAST MEDICAL/SURGICAL HISTORY 1. Asthma 2. Pre-eclampsia with 3. Pre- diabetes, was on metformin till just prior to CCY MEDICATIONS Outpatient Prescriptions Marked as Taking for the 03/06/13 encounter (Office Visit) with Karen Cox MD Medication Sig Dispense Refill ??? HYDROmorphone (DILAUDID) 2 mg tablet Take 1-2 tablets by mouth every 4 hours as needed for Pain. 30 tablet 0 ??? furosemide (LASIX) 20 mg tablet Take 1 tablet by mouth daily. DIRECTED 30 tablet 11 ??? spironolactone (ALDACTONE) 100 mg tablet Take 1 tablet by mouth daily. 90 tablet 1 ??? albuterol (PROVENTIL HFA;VENTOLIN HFA) 90 mcg/actuation inhaler Inhale 2 puffs into the lungs every 4 hours as needed. Use with spacer ??? LORazepam (ATIVAN) 1 mg tablet 1-2 tablets at bedtime 60 tablet 3 ??? fluticasone-salmeterol (ADVAIR DISKUS) 250-50 mcg/dose diskus inhaler Inhale 1 puff into the lungs every 12 hours. ??? pantoprazole (PROTONIX) 40 mg tablet Take 40 mg by mouth daily. ??? traZODone (DESYREL) 100 mg tablet Take 150 mg by mouth nightly. ??? ferrous sulfate 324 mg (65 mg iron) TbEC Take 1 tablet by mouth 3 times daily. 90 tablet 11 ??? FLUoxetine (PROZAC) 40 mg capsule 40MG, PO, Once daily ALLERGIES Allergies Allergen Reactions ??? Latex Rash ??? Scopolamine Itching and Rash Itching erythematous rash resolved with scop patch removal. ??? Adhesive Bandage CIS - Localized Reaction ??? Amoxicillin Trihydrate CIS - Rash ??? Penicillins Rash ??? Sulfa (Sulfonamide Antibiotics) CIS - Rash SOCIAL HISTORY Non smoker. No etoh. , one child. 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 FAMILY HISTORY 3 siblings with RA. 3 siblings with diabetes. Filed Vitals: 03/06/13 1336 BP: 131/75 Pulse: 91 Height: 158 cm (5' 2.21) Weight: 93.441 kg (206 lb) PHYSICAL EXAM HENT: Sclerae anicteric, pupils equal, round, react to light. Pharynx unremarkable. Neck is supple,no adenopathy, no thyromegaly. Chest is clear. Heart: Regular rate and rhythm. Normal S1, S2, 2/6 sys murmer. Abdomen: Normal bowel sounds; soft. No obvious hepatosplenomegaly. Mild diffuse tenderness near healing incisions Extremities: 1+ edema. ASSESSMENT/PLAN 47 year old female who has been unwell for about 1 1/2 years with multiple non specific symptoms and findings of anemia, elevated alkaline phosphatase and a history of pericarditis. Data from the last 2 weeks is shows a liver biopsy consistent with cirrhosis secondary to congestion and an ultrasound showing no vascular obstruction at the hepatic venous end, but rather dilated hepatic veins and dilated IVC. 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 I think further evaluation by cardiology is in order. If the cardiac process is reversible then we can likely expect some improvement in liver function.Further management of ascites/edema can be done after cardiology evaluation. Recommendations: -for now continue current diuretics -appt with cardiology -follow up with me after cardiology evaluation -low sodium diet -avoid NSAID's while on diuretics Karen Cox MD Hepatology and Gastroenterology [facility] NATALIE Boateng V: [phone] Copy: BERNADETTE CHILDS MD [address] [facility] [place] [address] documented in this encounter Plan of Treatment Upcoming Encounters Date Type Department Care Team (Late st Contact Info) Description 09/14/2023 11:00 AM EDT Office [place] [address] Mague Johnson MD [facility] [place] [address] documented as of this encounter Procedures Procedure Name Priority Date/Time Associated Diagnosis Comments DIFFERENTIAL, AUTOMATED Routine 03/06/2013 3:11 PM EST CBC (WITH DIFF) Routine 03/06/2013 3:11 PM EST Cirrhosis, cardiac COMPREHENSIVE METABOLIC PANEL (NON-FASTING) Routine 03/06/2013 3:11 PM EST Cirrhosis, cardiac documented in this encounter Results * Echocardiogram Transthoracic(Leb) (03/14/2013 1:18 PM EST) EF 65 HEARTDigital Caddies SYSTEM Anatomical Region Laterality Modality Other 03/14/2013 Narrative 03/14/2013 1:32 PM EST Procedure: ? Transthoracic Echocardiogram Patient: ? RUBA PATE ?(Age): 1965(47) Med Rec#: ?[id number] ? Sex: ?F ? [place] [place] Ht / Wt: ??158(cm)/88(kg) Pt. Loc: ? Echo Lab ? BSA: ?1.97 Study Date: ?03/14/2013 ? Pt. Type: Outpatient Tape: ? Referring: Karen Cox Sewer Inspector: Tamie Leonard Diagnosis:CPT Code(s): ??Echo Full (49336), ??Spectral Doppler (86542), Color Doppler (76959), Indication(s): ??Pericardial constriction, R/O Rhythm: Sinus HR [...] ? Mid-Inferior ?Normal ? Mid-Inferoseptal ?Normal ? [place]-Septal ? Normal ? [place]-Anterior ? Normal ? [place]-Lateral ?Normal ? [place]-Inferior ? Normal ? [place]-Tip ?Normal ? Chambers ?Value ?Units (Range) ? [...] 03/14/2013 13:31:19 Images reviewed and interpretation verified [facility] Cardiac Ultrasound Laboratory Procedure Note Octaviano Prado MD - 03/14/2013 Procedure: Transthoracic Echocardiogram Patient: RUBA FRANCISCO(Age): 1965(47) Med Rec#: [id number] Sex: F [place] [facility] [place] Ht / Wt: 158(cm)/88(kg) Pt. Loc: Echo Lab BSA: 1.97 Study Date: 03/14/2013 Pt. Type: Outpatient Tape: Referring: Karen Cox Sewer Inspector: Tamie Leonard Diagnosis:CPT Code(s): Echo Full (72361), Spectral Doppler (52544), Color Doppler (51344), Indication(s): Pericardial constriction, R/O Rhythm: Sinus HR [...] dimension consistent with elevated right atrial pressure. [facility] [place], [place] Two-dimensional echo, spectral Doppler and color Doppler performed. Wall Motion: Segment Name Rest Base-Anteroseptal Normal Base-Anterior Normal Base-Anterolateral Normal Base-Posterolateral Normal Base-Inferior Normal Base-Inferoseptal Normal Mid-Anteroseptal Normal Mid-Anterior Normal Mid-Anterolateral Normal Mid-Posterolateral Normal Mid-Inferior Normal Mid-Inferoseptal Normal [place]-Septal Normal [place]-Anterior Normal [place]-Lateral Normal [place]-Inferior Normal [place]-Tip Normal Chambers Value Units (Range) LV EF [...] 03/14/2013 13:31:19 Images reviewed and interpretation verified [facility] Cardiac Ultrasound Laboratory Karen Cox MD ECHO ORDERABLES * Differential, Automated (03/06/2013 3:11 PM EST) Neutrophils % 67.3 34.0 - 71.0 % CERNER MILLENNIUM Neutr Abs (ANC) 5.17 1.50 - 6.30 x10(3)/mcL CERNER MILLENNIUM Lymphocytes % 20.2 19.0 - 53.0 % CERNER MILLENNIUM Lymphocytes Abs 1.6 1.0 - 3.6 x10(3)/mcL CERNER MILLENNIUM Monocytes % 9.5 4.0 - 13.0 % CERNER MILLENNIUM Monocyte Abs 0.7 0.2 - 1.0 x10(3)/mcL CERNER MILLENNIUM Eosinophils % 2.3 0.0 - 7.0 % CERNER MILLENNIUM Eosinophils Abs 0.2 0.0 - 0.5 x10(3)/mcL CERNER MILLENNIUM Basophils % 0.4 0.0 - 2.0 % CERNER MILLENNIUM Basophils Abs 0.0 0.0 - 0.2 x10(3)/mcL CERNER MILLENNIUM Immature Gran % 0.30 0.00 - 0.66 % CERNER MILLENNIUM Comment: Immature granulocytes(IG's)percentage and absolute count will include metamyelocytes, myelocytes, and promyelocytes. Blood smears from CBCs yielding IG's will be scanned manually for concordance. If this scan disagrees with the automated IG or if promyelocytes are noted, a manual differential will be performed. Ashley Gran Abs 0.02 0.00 - 0.05 x10(3)/mcL CERNER MILLENNIUM Blood specimen (specimen) 03/06/2013 3:11 PM EST 03/06/2013 3:16 PM EST Karen Cox MD HEMATOLOGY ORDERABLE S CERNER MILLENNIUM * (ABNORMAL) Comprehensive metabolic panel (non-fasting) (03/06/2013 3:11 PM EST) Glucose Lvl 132 60 - 199 mg/dL CERNER MILLENNIUM Comment:Diabetes: >=200 mg/d L plus symptoms BUN 7(L) 8 - 18 mg/dL CERNER MILLENNIUM Creatinine 0.83 0.70 - 1.20 mg/dL CERNER MILLENNIUM Comment: Please note that the pediatric reference intervals supplied above were not validated at [facility]. Results from pediatric patients should be interpreted [...] questions. Chloride 104 98 - 107 mmol/L CERNER MILLENNIUM CO2 25 22 - 31 mmol/L CERNER MILLENNIUM Anion Gap 12 5 - 15 mmol/L CERNER MILLENNIUM Calcium 9.0 8.5 - 10.5 mg/dL CERNER MILLENNIUM Total Protein 6.8 6.4 - 8.3 gm/dL CERNER MILLENNIUM Albumin 4.1 3.2 - 5.2 gm/dL CERNER MILLENNIUM AST 18 0 - 30 unit/L CERNER MILLENNIUM ALT 10 0 - 30 unit/L CERNER MILLENNIUM Alk Phos 261(H) 40 - 104 unit/L CERNER MILLENNIUM Total Bilirubin 0.6 0.2 - 1.3 mg/dL CERNER MILLENNIUM Bili, Direct 0.3 0.0 - 0.3 mg/dL CERNER MILLENNIUM Estimated GFR >60 >=60 [...] internet browser. http://www.nkdep.nih.gov/lab-evaluation.shtml http://www.kidney.org/professionals/ Blood specimen (specimen) 03/06/2013 3:11 PM EST 03/06/2013 3:16 PM EST Narrative Resulting Agency Comment Spec In Lab Karen Cox MD CHEMISTRY ORDERABLES CERNER MILLENNIUM * (ABNORMAL) CBC (with Diff) (03/06/2013 3:11 PM EST) WBC 7.7 4.0 - 10.0 x10(3)/mcL CERNER MILLENNIUM RBC 4.96 3.93 - 5.22 x10(6)/mcL CERNER MILLENNIUM Hemoglobin 12.7 11.2 - 15.7 gm/dL CERNER MILLENNIUM Hematocrit 39.3 34.0 - 45.0 % CERNER MILLENNIUM MCV 79.2 79.0 - 94.0 fL CERNER MILLENNIUM MCH 25.6(L) 26.6 - 32.2 pg CERNER MILLENNIUM MCHC 32.3 32.0 - 36.5 gm/dL CERNER MILLENNIUM Platelets 298 145 - 370 x10(3)/mcL CERNER MILLENNIUM RDWSD 48.5(H) 35.0 - 46.0 fL CERNER MILLENNIUM RDWCV 17.1(H) 10.9 - 14.4 % CERNER MILLENNIUM MPV 10.6 9.0 - 12.0 fL CERNER MILLENNIUM Blood specimen (specimen) 03/06/2013 3:11 PM EST 03/06/2013 3:16 PM EST Narrative Resulting Agency Comment Spec In Lab Karen Cox MD [facility]OLOG[facility]ABLE S [facility] documented in this encounter Visit Diagnoses Diagnosis Cirrhosis, cardiac- Primary Cirrhosis of liver without mention of alcohol Cirrhosis, cardiac Cirrhosis of liver without mention of alcohol documented in this encounter Care Teams Wrapper Hand Relationship Specialty Start Date End Date Bernadette Childs MD [address] [place] [address] PCP - General 04/03/12 07/27/20 documented as of this encounter
--- OUTSIDE RECORDS SUMMARY | 2023-09-06 01:41 | XMS_ITS | Encounter Summary ---
Author Organization [place] [address] Care Team Providers Care Criminal Analyst Name Role Phone Bernadette Childs MD Primary Care Provider [phone] Encounter Details Date Type Department Care Team (Late st Contact Info) Description 02/24/2013 Telephone [place] [address] Zana Robbins MD [facility] [place] [address] Social History Tobacco Use Types Packs/Day Years [...] encounter Miscellaneous Notes * Telephone Encounter - Zana Robbins MD - 02/24/2013 3:32 PM EST 47 F s/p laparoscopic cholecystectomy. Called today given signs of yeast infection. Will call in one time dose of Diflucan 150mg. Patient to follow up with PCP if w/o resolve documented in this encounter Plan of Treatment Upcoming Encounters Date Type Department Care Team (Late st Contact Info) Description 09/14/2023 11:00 AM EDT Office [place] [address] Mague Johnson MD [facility] DR ENDOCRINOLOGY [place] [address] documented as of this encounter Visit Diagnoses Not on filedocumented in this encounter Care Teams Criminal Analyst Relationship Specialty Start Date End Date Bernadette Childs MD [address] [place] [address] PCP - General 04/03/12 07/27/20 documented as of this encounter
--- OUTSIDE RECORDS SUMMARY | 2023-09-06 01:41 | XMS_ITS | Encounter Summary ---
Author Organization [facility] [place] [address] Care Team Providers Care Optical Designer Name Role Phone Bernadette Childs MD Primary Care Provider [phone] Reason for Visit * Reason Comments Leg Swelling Encounter Details Date Type Department Care Team (Latest Contact Info) Description 04/02/2013 10:30 AM EST Office Visit [place] [address] Keron Larry MD [facility] [place] [address] Constrictive cardiomyopathy (Primary Dx) Discharge Disposition: Home Social History [...] Sign Reading Time Taken Comments Blood Pressure 108/80 04/02/2013 10:03 AM EST Pulse 80 04/02/2013 10:03 AM EST Temperature - - Respiratory Rate - - Oxygen Saturation 97% 04/02/2013 10:03 AM EST Inhaled Oxygen Concentration - - Weight 84.8 kg (187 lb) 04/02/2013 10:03 AM EST Height 157.5 cm (5' 2) 04/02/2013 10:03 AM EST Body Mass Index 34.2 04/02/2013 10:03 AM EST documented in this encounter Progress Notes * Keron Larry MD - 04/07/2013 2:17 PM EST Mrs. Beltre has been referred by [facility] for consideration of pericardiectomy for constrictive pericarditis. Mrs. Beltre is a 47-year-old female who had pericarditis that was effusive roughly one year ago and was treated with colchicine for that. Since that time, she has had progressive swelling in her legs and ascites. She had her gallbladder removed and a liver biopsy that revealed what appeared to be congestion and the start of cirrhosis around her liver. It was determined that her origin of her cirrhosis was cardiac, and alcoholic and other stone sources were ruled out. She appears to have good synthetic function of her liver, and she has never had any varices identified or bleeding from them. She continues to feel worse. Her past surgical history is noncontributory, and her past medical history is significant for preeclampsia. Her meds and allergies can be found in the EMR. On physical exam, her lungs are clear. I cannot hear any murmurs. She has no scars over her chest. Her leg swelling is limited right now; it is 1 to 2+ edema. Her echocardiogram shows a good EF without any valvular malfunctions. Her MRI and cardiac cath are suggestive of constriction. She has had an e-consult with the [facility], and the opinion there is that she should be referred for pericardiectomy. I have spoken with the gastroenterologists, and in light of the rapid deterioration that can occur with patients with this type of cirrhosis and major operations, I have recommended to her by phone that we refer her to Dr. Waterman at [facility] who specializes in this. I would feel more comfortable with the degree of backup she would have if her liver were to fail, if there was a need or even the possibility of an urgent transplant in that circumstance, I am much more comfortable with her being there for this procedure in light of her cirrhosis. documented in this encounter Plan of Treatment Upcoming Encounters Date Type Department Care Team (Late st Contact Info) Description 09/14/2023 11:00 AM EDT Office [place] [address] Mague Johnson MD [facility] [place] [address] documented as of this encounter Visit Diagnoses Diagnosis Constrictive cardiomyopathy- Primary Other primary cardiomyopathies documented in this encounter Care Teams Optical Designer Relationship Specialty Start Date End Date Bernadette Childs MD [address] [facility] [place] [address] PCP - General 04/03/12 07/27/20 documented as of this encounter
--- OUTSIDE RECORDS SUMMARY | 2023-09-06 01:41 | XMS_ITS | Encounter Summary ---
Author Organization [facility] Address [facility] [place] [address] Care Team Providers Care Voicer Name Role Phone Bernadette Childs MD Primary Care Provider [phone] Encounter Details Date Type Department Care Team (Late st Contact Info) Description 03/19/2013 7:35 AM EST - 03/19/2013 8:35 AM EST Surgery Clinical [place] [address] Cornelius Sullivan II, MD [facility] DR CARDIOLOGY [place] [address] CARDIAC CATHETERIZATION Social History Tobacco Use Types Packs/Day Years [...] Sign Reading Time Taken Comments Blood Pressure 113/79 03/19/2013 6:18 AM EST Pulse 88 03/19/2013 6:18 AM EST Temperature 36.5 ??C (97.7 ??F) 03/19/2013 6:18 AM ES T Respiratory Rate 18 03/19/2013 6:18 AM EST Oxygen Saturation 97% 03/19/2013 6:18 AM EST Inhaled Oxygen Concentration - - Weight 86 kg (189 lb 9.5 oz) 03/19/2013 6:18 AM EST Height 157.5 cm (5' 2) 03/19/2013 6:18 AM EST Body Mass Index 34.68 03/19/2013 6:18 AM EST documented in this encounter Discharge Instructions * Discharge Instructions* Joanne Cooper RN - 03/19/2013 12:47 PM EST Activity [...] by your doctor, do not take any glgm-rvd-xtwaodb medicines or herbal preparations without first discussing this with your doctor or pharmacist. There is the possibility of side effect and interactions when these are combined. Follow up Care Who to Call with Questions or Problems If there are any questions or problems that you think might be related to your cardiac cath or angioplasty, contact the administrative services director iron miner blasting by calling [facility] at . Activity If you are discharged [...] by your doctor, do not take any mwmb-xzl-aidybqw medicines or herbal preparations without first discussing this with your doctor or pharmacist. There is the possibility of side effect and interactions when these are combined. Follow up Care Who to Call with Questions or Problems If there are any questions or problems that you think might be related to your cardiac cath or angioplasty, contact the administrative services director iron miner blasting by calling [facility] at . documented in this encounter Medications [...] CHOLANGIOGRAM performed by Octaviano Torrez MD at [facility] MAIN OR ??? Unlisted laparoscopic proc, liver 02/19/2013 LAPAROSCOPIC LIVER BIOPSY performed by Octaviano Torrez MD at [facility] MAIN OR Meds: No current [...] no need for test Noam Bolanos M.D. Patternmaker Wood Pager: [phone] documented in this encounter Miscellaneous Notes * Miscellaneous - Provider, Scanning - 04/03/2013 9:11 AM EST * Miscellaneous - Provider, Scanning - 03/19/2013 5:29 PM EST * Miscellaneous - Provider, Scanning - 03/19/2013 9:11 AM EST documented in this encounter Plan of Treatment Upcoming Encounters Date Type Department Care Team (Late st Contact Info) Description 09/14/2023 11:00 AM EDT Office [place] [address] Mague Johnson MD [facility] DR ENDOCRINOLOGY 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 Pericardial disease Unspecified disease of pericardium documented in this encounter Administered Medications Inactive [...] Given 03/19/2013 7:52 AM EST 25 mg fentaNYL 50mcg/mL injection ONCE PRN, Starting on Tue03/19/13 at 0831, Until Tue03/19/13 at 1015, Pain, Cath (Intra-Procedure), Routine Given 03/19/2013 8:53 AM EST 25 mcg Given 03/19/2013 8:31 AM EST 25 mcg furosemide (LASIX) tablet 20 mg 20 mg, Oral, DAILY, First dose on Tue03/19/13 at 1200, Until Discontinued, Routine Given 03/19/2013 12:00 PM EST 20 mg heparin (porcine) injection ONCE PRN, Starting on Tue03/19/13 at 0901, Until Tue03/19/13 at 1015, Cath (Intra-Procedure), Routine Given 03/19/2013 9:01 AM EST 2,000 Units midazolam (PF) (VERSED) 1 mg/mL injection ONCE PRN, Starting on Tue03/19/13 at 0831, Until Tue03/19/13 at 1015, Sleep, Cath (Intra-Procedure), Routine Given 03/19/2013 8:53 AM EST 1 mg Given 03/19/2013 8:31 AM EST 1 mg spironolactone (ALDACTONE) tablet 100 mg 100 mg, Oral, DAILY, First dose on Tue03/19/13 at 1200, Until Discontinued, Routine Given 03/19/2013 12:0 0 PM EST 100 mg documented in this [...] Deal) documented in this encounter Care Teams Voicer Relationship Specialty Start Date End Date Bernadette Childs MD [address] [place] [address] PCP - General 04/03/12 07/27/20 documented as of this encounter
--- OUTSIDE RECORDS SUMMARY | 2023-09-06 01:41 | XMS_ITS | Encounter Summary ---
Author Organization [facility]ly [facility], [facility] [place] [address] Care Team Providers Care Applied Behavior Specialist Name Role Phone Bernadette Childs MD Primary Care Provider [phone] Reason for Visit * Reason Comments Follow-up Encounter Details Date Type Department Care Team (Late st Contact Info) Description 03/02/2013 3:00 PM EST Follow-Up Solid [place] [address] Octaviano Torrez MD [facility] [place] [address] Abdominal pain, unspecified site; Edema Discharge Disposition: Home Social History Tobacco Use [...] Sign Reading Time Taken Comments Blood Pressure 113/69 03/02/2013 2:51 PM EST Pulse 60 03/02/2013 2:51 PM EST Temperature 36.2 ??C (97.2 ??F) 03/02/2013 2:51 PM ES T Respiratory Rate - - Oxygen Saturation - - Inhaled Oxygen Concentration - - Weight 96.2 kg (212 lb) 03/02/2013 2:51 PM EST Height - - Body Mass Index 38.52 02/20/2013 11:50 AM EST documented in this encounter Progress Notes * Octaviano Torrez MD - 03/05/2013 1:52 PM EST Transplant Surgery Follow-Up Note Patient Name: Teresita Beltre Date of Surgery: 02/19 Procedure: Lap cholecystectomy and liver biopsy Complications: no Interval History: Teresita Beltre returns to transplant surgery clinic following surgery for evaluation and wound check. Following surgery, she has done well. Today, she reports that she has moderate pain, no fever or chills, and no nausea. She was concerned that she was running low on pain medications and returned toclinic early. She is using 2-3 pain pills daily, though this is improving. Past Medical History Diagnosis Date ??? Diabetes mellitus ??? Pericarditis ??? Hyperlipidemia ??? Obesity ??? Anxiety ??? Depression Past Surgical History Procedure Date ??? Colonoscopy ??? Upper gastrointestinal endoscopy ??? Lap, cholecystectomy/graph 02/19/2013 LAPAROSCOPIC CHOLECYSTECTOMY WITH CHOLANGIOGRAM performed by Octaviano Torrez MD at [facility] MAIN OR ??? Unlisted laparoscopic proc, liver 02/19/2013 LAPAROSCOPIC LIVER BIOPSY performed by Octaviano Torrez MD at [facility] MAIN OR History Social History ??? Marital Status: Spouse [...] History Narrative ??? No narrative on file REVIEW OF SYSTEMS: Systems review. There are are no positive findings Physical examination: BP 113/69 Pulse 60 Temp 36.2 ??C (97.2 ??F) Wt 96.163 kg (212 lb) Subjective: Diet: Adequate intake. Activity level: Returning to normal. Pain control: Partially controlled. Objective: Vital signs (most recent): Blood pressure 113/69, pulse 60, temperature 36.2 ??C (97.2 ??F), imtmeu34.163 kg (212 lb). Abdomen: Abdomen is soft. Bowel sounds: Bowel sounds are normal. Tenderness: There is tenderness in the incisional area. Wound: Clean. There is no dehiscence. There is no drainage. Assessment & Plan Assessment and plan: I reviewed the patients post operative course, and addressed her concerns. We specifically discussed wound care, pain control, and further management of this condition. Her finalpathology demonstrated cirrhosis. I have maintained her on diuretics which appears to have helped her ascites. 1. Wound: healing well. No issues 2. Pain control: adequate. Renewed pain medications as she needs them at night. 3. Return to clinic: PRN, will see hepatology next week 4. Laboratory examination: pending with next clinic visit. documented in this encounter Plan of Treatment Upcoming Encounters Date Type Department Care Team (Late st Contact Info) Description 09/14/2023 11:00 AM EDT Office Visit [place] [address] Mague Johnson MD [facility] [place] [address] documented as of this encounter Visit Diagnoses Diagnosis Abdominal pain, unspecified site Edema documented in this encounter Care Teams Applied Behavior Specialist Relationship Specialty Start Date End Date Bernadette Childs MD [address] [place] [address] PCP - General 04/03/12 07/27/20 documented as of this encounter
--- OUTSIDE RECORDS SUMMARY | 2023-09-06 01:41 | XMS_ITS | Encounter Summary ---
Author Organization [facility] Address [facility] [place] [address] Care Team Providers Care Supply Chain Coordinator Name Role Phone Bernadette Simon MD Primary Care Provider [phone] Encounter Details Date Type Department Care Team (Late st Contact Info) Description 03/16/2013 10:39 AM EST - 03/16/2013 11:59 PM EST [place] [address] CLINIC, Cornelius Manuel II, MD [facility] [place] [address] Pericardial disease Discharge Disposition: Home Social History Tobacco Use [...] as of this encounter Progress Notes * Tristen Hu RN - 03/14/2013 7:15 PM EST VIR MRI PRE-SEDATION ASSESSMENT NOTE NAME: Teresita Beltre AGE: 47 y.o. : 1965 Female [phone] (home) PCP TAX SERVICES PROFESSIONAL BERNADETTE SIMON MD None Allergies Allergen Reactions ??? Latex Rash ??? Scopolamine Itching and Rash Itching erythematous rash resolved with scop patch removal. ??? Adhesive Bandage Localized Reaction ??? Amoxicillin Trihydrate Rash ??? Penicillins Rash ??? Sulfa (Sulfonamide Antibiotics) Rash Date/Time of call: March 14, 2013/7:15 PM/ PREVIOUS MRI SCAN? Not at [facility] HEIGHT: 62 1/2 WEIGHT :86.41 KG SCHEDULED SCAN: Cardiac MRI with po sedation SUBJECTIVE: Pt states that she is claustrophobic. She had an abdominal MRI in [place] and it was difficult for her without sedation. ASSESSMENT: Reviewed medications and allergies. Pt takes 1-2 mg Ativan po for sleep. She questions whether two Ativan will be enough. Advised pt that she will need to hold her breath during scan so she cannot be sleeping. States two might be enough. Advised not to take albuterol in am unless she is SOB. PLAN: Ativan 1 mg po with possible repeat x1 per protocol. PRIOR SCAN DATE/S SEDATION TYPE SUCCESSFUL 03/16/13 Cardiac MRI Ativan 3 Mg/PO Yes - needed additional med PT WILL ARRIVE 1 HR. BEFORE SCHEDULED SCAN AND HAVE A SR. MANAGER AVAILABLE. PT STATED TO CLINICAL SUPERVISOR THAT THE SEDATION WAS EFFECTIVE FOR SCAN: Y N COMMENTS: This patient has been informed that they require a chassis driver to drive them home after this procedure. In the absence of a chassis driver, IR will not be able to perform this procedure and will need to reschedule. Pt verbalized understanding of these instructions during the pre-procedure education via phone. documented in this encounter Miscellaneous Notes * Miscellaneous - Provider, Scanning - 04/03/2013 8:56 AM EST documented in this encounter Plan of Treatment Upcoming Encounters Date Type Department Care Team (Late st Contact Info) Description 09/14/2023 11:00 AM EDT Office [place] [address] Mague Johnson MD [facility] [place] [address] documented as of this encounter Procedures Procedure Name Priority Date/Time Associated Diagnosis Comments MRI CARDIAC MORPHOLOGY FUNCTION WWO CONTRAST Routine 03/16/2013 2:43 PM EST Pericardial disease documented in this encounter Results * MRI- Cardiac morph/func with/WO contrast (03/16/2013 [...] No myocardialpathology identified. Cornelius Sullivan II, MD IMG MRI ORDERAB LES documented in this encounter Visit Diagnoses Diagnosis Pericardial disease Unspecified disease of pericardium documented in this encounter Administered Medications Inactive Administered Medications - up to 3 most recent administrations Medication Order MAR Action Action Date Dose Rate Site gadopentetate dimeglumine (MAGNEVIST) injection 17 mL 17 mL (0.2 mL/kg/dose ? 86.2 kg Order-specific weight), Intravenous, ONCE PRN, Per Protocol, Starting on Tue03/16/13 at 1418, 1 dose, Until Tue03/16/13 at 1418 Given 03/16/2013 2:18 PM EST 19 mLs lorazepam (ATIVAN) tablet 1 mg 1 mg, Oral, Administer over 12 Hours, EVERY 30 MIN, 2 doses, First dose on Tue03/16/13 at 0730, Last dose on Tue03/16/13 at 0800, Angio/IR (Day of Procedure), Routine Given 03/16/2013 1:00 PM EST 1 mg Given 03/16/2013 12:30 PM EST 2 mg documented in this encounter Care Teams Supply Chain Coordinator Relationship Specialty Start Date End Date Bernadette Simon MD [address] [place] [address] PCP - General 04/03/12 07/27/20 documented as of this encounter
--- OUTSIDE RECORDS SUMMARY | 2023-09-06 01:42 | XMS_ITS | Encounter Summary ---
Author Organization [facility] [place] [address] Care Team Providers Care Photographer Apprentice Name Role Phone Bernadette Childs MD Primary Care Provider [phone] Reason for Visit * Reason Onset Date Comments Other 10/25/2012 labs Encounter Details Date Type Department Care Team (Late st Contact Info) Description 10/25/2012 Telephone [place] [address] Nona Sommer RN Other (labs) Social History Tobacco Use Types Packs/Day Years Used Date Smoking Tobacco: Former Sex and Gender Information Value Date Recorded Sex Assigned at Female 07/09/2020 7:39 PM EDT Gender Identity Female 07/09/2020 7:39 PM EDT Sexual Orientation Straight 08/27/2020 7: 10 PM EDT documented as of this encounter Miscellaneous Notes * Telephone Encounter - Nona Sommer RN - 10/26/2012 2:40 PM EDT I saw her on Tuesday and a letter was sent on Tuesday; she can wait to read it, but the gist of it is that it changed nothing from my recommendations on Tuesday Oh ----- Message ----- From: Nona Sommer RN Sent: 10/25/2012 4:24 PM To: Oh Dumont MD Called Teresita and reviewed Dr. Dumont's letter with her. She verbalized understanding of all information. Told her copy of letter was also sent to Dr. Childs as she will need further evaluation by her re: iron levels. * Telephone Encounter - Nona Sommer RN - 10/25/2012 4:23 PM EDT Teresita called and left message requesting lab results and what Dr. Dumont's plan is based on results. documented in this encounter Plan of Treatment Upcoming Encounters Date Type Department Care Team (Late st Contact Info) Description 09/14/2023 11:00 AM EDT Office [place] [address] Mague Johnson MD [facility] [address] [place] [address] documented as of this encounter Visit Diagnoses Not on filedocumented in this encounter Care Teams Photographer Apprentice Relationship Specialty Start Date End Date Bernadette Childs MD [address] [place] [address] PCP - General 04/03/12 07/27/20 documented as of this encounter
--- OUTSIDE RECORDS SUMMARY | 2023-09-06 01:42 | XMS_ITS | Encounter Summary ---
Author Organization Formerly [facility] [place] [address] Care Team Providers Care Manager Express Name Role Phone Bernadette Childs MD Primary Care Provider [phone] Encounter Details Date Type Department Care Team (Late st Contact Info) Description 02/19/2013 10:41 AM EST - 02/19/2013 1:28 PM EST Surgery [place] [address] Ashley Trorez MD [facility] [place] [address] LAPAROSCOPIC CHOLECYSTECTOMY WITH CHOLANGIOGRAM (WRVU 11.47) Social History Tobacco Use Types Packs/Day Years [...] Sign Reading Time Taken Comments Blood Pressure 153/97 02/19/2013 9:15 AM EST Pulse 102 02/19/2013 9:15 AM EST Temperature 37 ??C (98.6 ??F) 02/19/2013 9:15 AM EST Respiratory Rate 20 02/19/2013 9:15 AM EST Oxygen Saturation 99% 02/19/2013 9:15 AM EST Inhaled Oxygen Concentration - - Weight 91.2 kg (201 lb) 02/19/2013 9:15 AM EST Height 157.5 cm (5' 2) 02/19/2013 9:15 AM EST Body Mass Index 38.27 02/20/2013 11:50 AM EST documented in this encounter Discharge Instructions * Patient Instructions* Nioks Rand MD - 02/22/2013 7:03 AM EST Patient Instructions: Call your doctor if: 1. Monitor your incision for the following signs and symptoms of infection: 1. Redness or swelling, (some mild redness around the incision and the staple/suture sites is normal) 2. Drainage or bleeding 3. Fever over 100.5 F 4. Increased pain or discomfort at the incision site 2. Persistent vomiting or the inability to keep foods or fluids down in a 24 hour period 3. Or any other concern, such as trouble breathing, pain with urination, or new leg pain/swelling. Also, please call with increasing abdominal pain, firmness, stop passing gas for an extended period of time, or bloody bowel movements or vomitus. CALL THE TRANSPLANT SURGERY CLINIC DURING WORKING HOURS AT , OR CALL AFTER CLINIC HOURS, WEEKENDS AND HOLIDAYS: ASK FOR THE SURGERY RESIDENT SHOE TURNER IF ANY OF THE ABOVE OCCUR. Activity level: No heavy lifting until cleared to do so at follow-up appointment. Otherwise activity as tolerated by comfort level. Diet: You may resume your regular diet as tolerated. If taking opiate pain medications be sure to drink enough fluids and get adequate fiber in your diet. Driving: No driving while still taking opioid pain medications (wait at least 6- 8 hours since last dose). No driving if you are still sore from surgery as it may limit your ability to react quickly if necessary. Shower/Bath: You may shower and get incision(s) wet. Pat dry immediately following. Do not scrub them vigorously for the next 2-3 weeks. Do not soak incision(s) for the next 2 weeks (i.e. soaking in bath or swimming) as this may promote a wound infection. Wound Care: Wash incision with soap and water, pat dry, and leave open to air. Allow steri-strips (pieces of tape) to fall off on their own if you have them. You may cover with gauze as needed to prevent incision rubbing on clothes or for any seepage. Medications: You will be taking the diuretic spironolactone instead of furosemide. While you were in the hospital we found that you are allergic to scopolamine Pain control: You will be provided with some prescription pain medication that you can take for severe pain. Reduce the dose or increase he time between doses as your pain decreases. While you are taking pain medication you should also take a stool softener such as sodium docusate. Follow up Appointments: The following appointments have been scheduled for you: You will have an appointment in 2 weeks, we will call to schedule this. If you have not received your follow up appointment date within a week please call to schedule. * Attachments The following attachments cannot be sent through Care Everywhere. * CHOLECYSTECTOMY: WHAT TO EXPECT AT HOME (YAKUT) * PERCUTANEOUS LIVER BIOPSY: WHAT TO EXPECT AT HOME (YAKUT) documented in this encounter Medications at Time of Discharge Medication Sig Dispensed Refills Start Date End Date docusate sodium (COLACE) 100 mg capsule Take 1 capsule by mouth 2 times daily for 10 days. 30 capsule 0 02/22/2013 03/04/2013 HYDROmorphone (DILAUDID) 2 mg tablet Take 1-2 tablets by mouth every 4 hours as needed for Pain. 30 tablet 0 02/22/2013 03/02/2013 spironolactone (ALDACTONE) 100 mg tablet Take 1 [...] mg capsule 40MG, PO, Once daily 02/10/2006 03/14/2013 documented as of this encounter Progress Notes * Luana Crook RN - 02/22/2013 9:36 AM EST Patient assessed at start of shift. Surgical sites WNL, patient pleasant and cooperative, A&OX4, ambulating independently, voiding adequately with +BM, pt feeling ready for discharge home. 0930 AVS reviewed with patient and , prescriptions given to patient by MD Rand, questions answered. PIVX2 removed by this RN,sites clean. Patient discharged home no services. Patient escorted to exit via w/c. * Nikos Rand MD - 02/22/2013 9:01 AM EST [facility] Department of Transplant Surgery [place] [phone] To whom it may concern: Herlinda Beltre was recently hospitalized at [facility] for treatment. She will be fit and able to return to work on 03/19/2012. Please contact me if there are any concerns. Sincerely, NIKOS RAND MD * Ashley Torrez MD - 02/21/2013 8:18 AM EST Transplant surgery note POD 2 s/p lap joellen with liver bx Interim - nausea and lightheadedness yesterday with low uop -- received 500 of albumin and also lasix, uop picked up - nausea improved - still has not tolerated po pain meds - full body rash after scopolamine patch, improving after removal - +BM this am BP 107/71 Pulse 91 Temp 37.3 ??C (99.1 ??F) (Oral) Resp 17 Ht 158 cm (5' 2.21) Wt 95.528kg (210 lb 9.6 oz) BMI 38.27 kg/m2 SpO2 94% I/O last 3 completed shifts: In: 4043.7 [P.O.:2450; I.V.:1593.7] Out: 6340 [Urine:5180; Other:1160] I/O this shift: In: - Out: 530 [Urine:500; Other:30] Nad, alert and oriented unlabored abd softly dt, attp, incisions c/d/i Drain with serosang + ascites Ext warm Erythema on arms and chest and abdomen -- appears to be allergic reaction, imroved Labs reviewed CBC Lab Results Component Value Date WBC 12.9* 02/21/2013 Hemoglobin 13.9 02/21/2013 Hematocrit 41.5 02/21/2013 Platelets 292 02/21/2013 Electrolytes Lab Results Component Value Date Sodium 133* 02/21/2013 Potassium 4.4 02/21/2013 Chloride 100 02/21/2013 CO2 24 02/21/2013 Lab Results Component Value Date BUN 12 02/21/2013 CREATININE 1.05 02/21/2013 No growth on peritoneal fluid cx A/P 47 y.o. F with RUQ pain now pod 2 s/p liver bx and lap joellen, found to have ascites and nodular liver, likely cirrhotic, likely secondary to AI process, though unclear dx. Low uop and nauseated yesterday, improved today Continue po lasix, start aldactone Avoid scopolamine Discharge when able to tolerate po meds either later today or tomorrow Will need tod/c drain prior to discharge (will do now) I have seen and examined the patient, providing nuñez components as outlined below. I have reviewed the resident???s above note; my evaluation of the patient is below: Still lethargic. She has significant ascites which is being managed with diuretics and albumin. SUBHASH removed after placing a stitch. Labs stable. Wounds c/d/i. * Elana Arriaza, RN - 02/20/2013 2:59 PM EST Progress Note: Pt arrived onto floor at 1045. Urine output for 6 hours less than 9ml/hr. BUN WNL/Creatinine high normal (1.01). Pt's SUBHASH draining 30ml/hr serosanguinous fluid. Dr. Rand notified of renal status andfluid imbalance. IVF running at 100ml/hr from short stay. Albumin ordered. 2 bottles infused without adverse reactions noted. Will continue to monitor. Pt bladder scanned at 1345 for 36ml of urine. Furosemide given PO. Discussed rationale for albumin and diuretic to patient and family. Dr. Rand aware of low urine output. Will continue to monitor for desired effects of medications. * Marilyn Campoverde RN - 02/20/2013 1:22 PM EST Care Management/ CRC Pager# [phone]/ Assessment S: I only slept in 20 minute naps last night. I'll try to get some rest later. O: Met with patient and patient's Jace this morning. Notes reviewed. Patient and reside in [facility]. Patient has [employer] O insurance. Patient has Advance Directives on file here at [facility]. Patient is POD# 1 laparoscopic cholecystectomy, liver biopsy. At this time patient is on Carb control level 2 diet po. Novolog SQ q4hr correction. Albumin IV as ordered. Hydromorphone CORPORATE SAFETY COORDINATOR. Oxycodone po q4hr prn. SUBHASH drain x1 to bulb suction (output of 570ml). Blum catheter D/C this morning. Lasix 20mg po qday. Nexium po qday. Prozac po qday. Ativan po qhs prn. Patient OOB with assistance. 94% on 2liters oxygen via fur glosser. Albuterol inhaler q4hr prn. A: Patient progressing post-op. Supportive here with patient. P: I will continue in CRC role, following patient's in-hospital course. I am available to assist should discharge needs arise. * Roopa Barrerakeyur Hawkins - 02/20/2013 10:33 AM EST Transplant surgery note POD 1 s/p lap joellen with liver bx Overnight: no acute events Significant output from abd drain still BP 99/62 Pulse 84 Temp 36.9 ??C (98.4 ??F) (Oral) Resp 16 Ht 157.5 cm (5' 2) Wt 91.173 kg (201 lb) BMI 36.76 kg/m2 SpO2 96% I/O last 3 completed shifts: In: 3586.7 [P.O.:1610; I.V.:1976.7] Out: 1117 [Urine:547; Other:570] I/O this shift: In: - Out: 145 [Urine:55; Other:90] Nad, alert and oriented ctab Regular abd softly dt, attp, incisions c/d/i Drain with serosang + ascites Ext warm Labs reviewed Hb stable bmo wnl A/P 47 y.o. 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 The average is 30 ml/hr. The blum was removed at 0753. She has had an output of 20 ml after the blum was removed. Bladder scan showed 0 ml. Will continue to monitor. * Nita Parra RN - 02/19/2013 10:45 PM EST SUBHASH draining approximately 60 ml/h serosanguinous fluid. pagelolis. Will continue to monitor. * Rachna Underwood RN - 02/19/2013 4:48 PM EST Pt arrived to floor via bed from PACU. Pt states pain is controlled with CORPORATE SAFETY COORDINATOR dilaudid. No c/o nausea at this time. States some itching especially un upper extremities. No rash noted. Some dry skin noted on lips and skin. Lap sites well approximated with no drainage. Drain intact. Will continue to monitor. documented in this encounter H&P Notes * Ashley Torrez MD - 02/19/2013 9:58 AM EST Patient Name: Herlinda Beltre Patient Age: 47 y.o. Birthdate: 1965 Admit date: 02/19/2013 Attending Physician: Ashley Torrez MD I have reviewed the H and P as documented. There are no significant changes in the medical history or physical exam. I have not identified any medical or surgical contraindications. I have personallyreviewed the risks and benefits of the planned operation with Herlinda Beltre. documented in this encounter Procedure Notes * Provider, Scanning - 02/23/2013 10:50 AM ESTAssociated Order(s): SCAN DOC: LAB documented in this encounter Miscellaneous Notes * Miscellaneous - Provider, Scanning - 02/23/2013 10:50 AM EST * Miscellaneous - Joseph, Trinh - 02/23/2013 10:50 AM EST * Discharge Summary - Nikos Rand MD - 02/22/2013 7:08 AM EST Inpatient - Discharge Summary Patient Name: Herlinda Beltre Patient Age: 47 y.o. Birthdate: 1965 Admit date: 02/19/2013 Discharge date and time: 02/22/2013 Attending Physician: Ashley Torrez MD Primary Diagnosis: Abdominal pain, RUQ (right upper quadrant) Secondary Diagnosis: Active Hospital Problems Diagnosis ??? Abdominal pain, RUQ (right upper quadrant) ??? Ascites Resolved Hospital Problems Diagnosis Date Resolved No resolved problems to display. Active Non-Hospital Problems Diagnosis ??? Abnormal LFTs (liver function tests) HPI: Herlinda Beltre is an 47 y.o. female. She was seen in January 2013 for evaluation of abnormal pain and abnormal LFTs. Ms Escalante has had RUQ pain and LFT abnormalities following an admissionfor percariditis in June 2011. She was also noted to have a markedly elevated GGT. Multiple imaging studies have not identified cholelithiasis, though she has gall bladder wall thickening. She has no history of jaundice. Overall, she reports that she is not feeling well. Given her RUQ tenderness, abnormal liver enzymes, and thickened gallbladder wall she was scheduled for laparoscopic cholecystectomy and liver biopsy Operations/Major Procedures: Operations: 02/19/2013 Surgeon(s) and Role: * Ashley Torrez MD - Primary * Artur Barrera MD - Resident-Surgeon Anthony: Procedure(s): LAPAROSCOPIC CHOLECYSTECTOMY WITH CHOLANGIOGRAM LAPAROSCOPIC LIVER BIOPSY Hospital Course: Herlinda Beltre was taken to the operating room where the above procedures were performed. She tolerated the operation well and without complication. significant intraoperative findings includid large amount of ascites, dense adhesions in the RUQ, grossly abnormal liver appearance consistent with cirr hosis, and slightly more difficult than usual hemostasis. She was admitted post- operatively for observation and management. She initially had high sanguinous drain output, however this cleared on POD1. She continued to have high serous drain output, spironolactone was started for treatment of ascites and her drain was closed with a stitch at the time of removal. She developed a rash after being treated for nausea with a scopolamine patch, this cleared after the patch was removed. The patient'shospital course was otherwise uncomplicated and she was deemed stable for discharge to home on post-operative day 3. Pending Lab Data at Discharge: ascitic fluid cytology Liver biopsy pathology Condition at Discharge: Stable Important Studies and Lab Data: Labs: Recent Results (from the past 24 hour(s)) POCT GLUCOSE Component Value Range POC Glucose 157 60 - 199 mg/dL POCT GLUCOSE Component Value Range POC Glucose 110 60 - 199 mg/dL POCT GLUCOSE Component Value Range POC Glucose 131 60 - 199 mg/dL POCT GLUCOSE Component Value Range POC Glucose 127 60 - 199 mg/dL POCT GLUCOSE Component Value Range POC Glucose 127 60 - 199 mg/dL CBC (WITH DIFF) Component Value Range WBC 6.3 4.0 - 10.0 x10(3)/mcL RBC 4.85 3.93 - 5.22 x10(6)/mcL Hemoglobin 12.2 11.2 - 15.7 gm/dL Hematocrit 37.1 34.0 - 45.0 % MCV 76.5 (*) 79.0 - 94.0 fL MCH 25.2 (*) 26.6 - 32.2 pg MCHC 32.9 32.0 - 36.5 gm/dL Platelets 221 145 - 370 x10(3)/mcL RDWSD 48.3 (*) 35.0 - 46.0 fL RDWCV 17.2 (*) 10.9 - 14.4 % MPV 10.5 9.0 - 12.0 fL BASIC METABOLIC PANEL (NON-FASTING) Component Value Range Glucose Lvl 126 60 - 199 mg/dL BUN 10 8 - 18 mg/dL Creatinine 0.84 0.70 - 1.20 mg/dL Sodium 140 135 - 145 mmol/L Potassium 4.4 3.5 - 5.0 mmol/L Chloride 106 98 - 107 mmol/L CO2 24 22 - 31 mmol/L Anion Gap 10 5 - 15 mmol/L Calcium 8.6 8.5 - 10.5 mg/dL Estimated GFR >60 >=60 DIFFERENTIAL, AUTOMATED Component Value Range Neutrophils % 58.4 34.0 - 71.0 % Neutr Abs (ANC) 3.69 1.50 - 6.30 x10(3)/mcL Lymphocytes % 23.5 19.0 - 53.0 % Lymphocytes Abs 1.5 1.0 - 3.6 x10(3)/mcL Monocytes % 14.8 (*) 4.0 - 13.0 % Monocyte Abs 0.9 0.2 - 1.0 x10(3)/mcL Eosinophils % 2.8 0.0 - 7.0 % Eosinophils Abs 0.2 0.0 - 0.5 x10(3)/mcL Basophils % 0.3 0.0 - 2.0 % Basophils Abs 0.0 0.0 - 0.2 x10(3)/mcL Immature Gran % 0.20 0.00 - 0.66 % Ashley Gran Abs 0.01 0.00 - 0.05 x10(3)/mcL POCT GLUCOSE Component Value Range POC Glucose 120 60 - 199 mg/dL Studies: None Exam: Temp: [36.4 ??C (97.5 ??F)-36.8 ??C (98.2 ??F)] Heart Rate: [80-92] Resp: [14-18] BP: (97-118)/(55-74) SpO2: [92 %-97 %] I/O last 3 completed shifts: In: 1467 [P.O.:1250; I.V.:217] Out: 7475 [Urine:7225; Other:250] I/O this shift: In: - Out: 100 [Urine:100] Gen: lying in bed, NAD, oriented x3 Pulm: CTAB, no crackles/wheeze Card: normal rate/rhythm, no m/r/g Abd: non-distended, normal BS, soft, non-tender to palpation Wound: incision clean, dry, intact, no purulent drainage Ext: no edema, 2+ peripheral pulses Discharge to: Home Discharge Conditions/Prognosis: Stable Discharge Medications: Medications prior to admission that will be resumed at discharge: Medication Sig Dispense Refill ??? albuterol (PROVENTIL HFA;VENTOLIN HFA) 90 mcg/actuation [...] 40 mg capsule 40MG, PO, Once daily ??? fluticasone-salmeterol (ADVAIR DISKUS) 250-50 mcg/dose diskus inhaler Inhale 1 puff into the lungs every 12 hours. New medications prescribed at discharge: Medication Sig Dispense Refill ??? docusate sodium (COLACE) 100 mg capsule Take 1 capsule by mouth 2 times daily for 10 days. 30 capsule 0 ??? HYDROmorphone (DILAUDID) 2 mg tablet Take 1-2 tablets by mouth every 4 hours as needed for Pain. 30 tablet 0 ??? spironolactone (ALDACTONE) 100 mg tablet Take 1 tablet by mouth daily. 90 tablet 1 ??? [DISCONTINUED] furosemide (LASIX) 20 mg tablet Take 1 tablet by mouth daily. 90 tablet 1 Updated Allergies/ADRs: Allergies Allergen Reactions ??? Latex Rash ??? Scopolamine Itching and Rash Itching erythematous rash resolved with scop patch removal. ??? Adhesive Bandage CIS - Localized Reaction ??? Amoxicillin Trihydrate CIS - Rash ??? Penicillins Rash ??? Sulfa (Sulfonamide Antibiotics) CIS - Rash Follow-up Recommendations for Providers: May need adjustment of diuretic dosages. Will continue to need close follow up of her liver disease, biopsy results pending. PCP: BERNADETTE CHILDS MD Scheduled Appointments: No future appointments. Outpatient Services/Studies: No discharge procedures on file. Instructions Given to Patient at Discharge:. An After Visit Summary was printed and given to the patient. Provider Instructions Patient Instructions: Call your doctor if: 1. Monitor your incision for the following signs and symptoms of infection: 1. Redness or swelling, (some mild redness around the incision and the staple/suture sites is normal) 2. Drainage or bleeding 3. Fever over 100.5 F 4. Increased pain or discomfort at the incision site 2. Persistent vomiting or the inability to keep foods or fluids down in a 24 hour period 3. Or any other concern, such as trouble breathing, pain with urination, or new leg pain/swelling. Also, please call with increasing abdominal pain, firmness, stop passing gas for an extended period of time, or bloody bowel movements or vomitus. CALL THE TRANSPLANT SURGERY CLINIC DURING WORKING HOURS AT , OR CALL AFTER CLINIC HOURS, WEEKENDS AND HOLIDAYS: ASK FOR THE SURGERY RESIDENT SHOE TURNER IF ANY OF THE ABOVE OCCUR. Activity level: No heavy lifting until cleared to do so at follow-up appointment. Otherwise activity as tolerated by comfort level. Diet: You may resume your regular diet as tolerated. If taking opiate pain medications be sure to drink enough fluids and get adequate fiber in your diet. Driving: No driving while still taking opioid pain medications (wait at least 6- 8 hours since last dose). No driving if you are still sore from surgery as it may limit your ability to react quickly if necessary. Shower/Bath: You may shower and get incision(s) wet. Pat dry immediately following. Do not scrub them vigorously for the next 2-3 weeks. Do not soak incision(s) for the next 2 weeks (i.e. soaking in bath or swimming) as this may promote a wound infection. Wound Care: Wash incision with soap and water, pat dry, and leave open to air. Allow steri-strips (pieces of tape) to fall off on their own if you have them. You may cover with gauze as needed to prevent incision rubbing on clothes or for any seepage. Medications: You will be taking the diuretic spironolactone instead of furosemide. While you were in the hospital we found that you are allergic to scopolamine Pain control: You will be provided with some prescription pain medication that you can take for severe pain. Reduce the dose or increase he time between doses as your pain decreases. While you are taking pain medication you should also take a stool softener such as sodium docusate. Follow up Appointments: The following appointments have been scheduled for you: You will have an appointment in 2 weeks, we will call to schedule this. If you have not received your follow up appointment date within a week please call to schedule. General Instructions None Provider Contact Information: [phone] Signed: NIKOS RAND MD 02/22/2013 * Plan of Care - Luis Angel Gonzalez RN - 02/22/2013 6:36 AM EST Problem: Trauma/Injury Risk (Adult, Obstetric) Goal: Trauma/Injury Risk: Absence of Trauma/Injury/Falls Outcome: Absent and monitoring See doc flowsheets for assessments and interventions. Pt up ad alejandro independently. Will continue to monitor Problem: Pain, Acute (Adult, Obstetric) Goal: Acute Pain: Acceptable Pain Control/Comfort Level - Pain, Acute (Adult, Obstetric) Outcome: Present (see interventions, notes) See doc flowsheets for assessments and interventions. Pt reporting 8/10 pain relieved with po dilaudid. Will continue to monitor Problem: Skin Integrity Impairment, Risk/Actual (Adult, Obstetric) Goal: Skin Integrity Impairment, Risk/Actual: Skin Integrity/Wound Healing Outcome: Present (see interventions, notes) See doc flowsheets for assessments and interventions. 4 abdominal lap sites all FARIHA and dermaboded.LUQ dressing remains CDI. No drainage noted. Will continue to monitor * Plan of Care - Alida Morrison RN - 02/21/2013 6:56 AM EST Problem: Pain, Acute (Adult, Obstetric) Goal: Acute Pain: Acceptable Pain Control/Comfort Level - Pain, Acute (Adult, Obstetric) Outcome: Therapy, goal partially met Pt states abdominal pain 5-7/10 and states it's tolerable. Plant Clerk available to pt, pt encouraged to use and has not. Also discussed with pt alternative pain relief therapy with pt declining all options thus far. Will continue to monitor and tx prn. Problem: Skin Integrity Impairment, Risk/Actual (Adult, Obstetric) Goal: Skin Integrity Impairment, Risk/Actual: Skin Integrity/Wound Healing Outcome: Present (see interventions, notes) A&O x 4, 4 lap sites to abdomen, all with skin substitute, c/d/i without drainage. All other skin areas intact. * Plan of Care - Alida Morrison RN - 02/21/2013 6:52 AM EST Problem: Trauma/Injury Risk (Adult, Obstetric) Goal: Trauma/Injury Risk: Absence of Trauma/Injury/Falls Outcome: Absent and monitoring A&O x 4, call gonzales within reach, using appropriately for assistance. Up with steady gait, non-skid slippers, stand by assist to bathroom. No falls, will continue to monitor. * OR Attestation - Ashley Torrez MD - 02/19/2013 5:33 PM EST Attestation: Case Date: 02/19/2013 I was present and I participated during the entire procedure (does not need to include opening and closing). ASHLEY TORREZ MD 02/19/2013 * Op Note - Ashley Torrez MD - 02/19/2013 5:27 PM EST [facility] Operative Note Patient Name: Herlinda Beltre : [id number] MR#: [id number] Case Date: 02/19/2013 Surgeon: Surgeon(s) and Role: * Ashley Torrez MD - Primary * Artur Barrera MD - Resident-Surgeon Anthony Preoperative diagnosis: ? PBC, abnormal LFTs, Ascites Postoperative diagnosis: Chronic cholecystitis and cirrhosis Procedure(s): LAPAROSCOPIC CHOLECYSTECTOMY LAPAROSCOPIC LIVER BIOPSY General Estimated Blood Loss: 150 cc Drains: 19 round Disposition: awakened from anesthesia, extubated and taken to the recovery room in a stable condition, having suffered no apparent untoward event. Condition: doing well without problems (Please see the Surgical Encounter Summary for any Implant and Specimen details pertinent to this patient.) Date of operation is 02/19/2013. Service is Transplant Surgery. Indications for Procedure: Recurrent abdominal pain, ascites, abnormal liver tests. Procedure and Findings: Following proper informed consent and administration of IV antibiotics, Herlinda Beltre was taken to the Operating Room. She was placed supine on the hospital table. General oroendotracheal anesthesia was induced without difficulty. A Blum catheter was placed. The abdomen was sterilely prepped and draped in the standard surgical fashion. We began with a proper time-out procedure. After completing this, we performed a curvilinear supraumbilical incision. This was deepened using Bovie cautery. We grasped and elevated the base of the umbilicus. The 0 Vicryl sutures were placed on either side of the midline. Midline was then incised. The abdomen was entered under direct vision. We placed a Boby trocar within the abdomen. The abdomen was insufflated to 50 mmHg. We placed two additional 5-mm trocars in the right subcostal region and additional 12-mm trocar in the epigastrium. We then began the procedure. There were multiple dense adhesions between the omentum and a scarred, inflamed-appearing gallbladder. The adhesions were taken down using harmonic scalpel. Of note, the liver appeared to be grossly abnormal and likely cirrhotic. We continued our dissection until we were able to identify the hilum. We carefully dissected the hilar structures free. We identified the cystic duct. It was circumferentially dissected, and it was clipped proximally and distally and divided. We continued our dissection of the hilum and identified the cystic artery as a single tubular structure entering the gallbladder. We circumferentially dissected, clipped proximally and distally, and divided. I then used a combination of harmonic scalpel and Bovie cautery to carefully remove the gallbladder from the gallbladder fossa. Once the gallbladder was removed, it was placed in an EndoCatch bag and removed through the umbilicus. We then turned our attention to the liver biopsy. This was performed using a Fernie-Cut needle in the right lobe of the liver. We then treated the biopsy sites with Bovie cautery. Of note, upon entering the abdomen, we discovered a significant amount of green-colored acidic fluid. This was sent for cell count, differential, culture, Gram stain, amylase, lipase, and albumin levels. We also sent a significant quantity to Cytology for review. After completing the liver biopsy, we thoroughly irrigated the abdomen. We found that the gallbladder fossa was hemostatic, and there was no evidence of bile leaking. We placed a 19-round Keshav drain through the lateralmost trocar site and secured it in place with a 2-0 Prolene suture. We removed the remainder of the trocars under direct vision. We confirmed hemostasis. We then reapproximated the umbilical incision with 0 Vicryl sutures. Subcutaneous tissues were irrigated. Skin was closed with 4-0 Monocryl. Dermabond dressing was applied. The patient was awakened and taken to the Recovery Room in apparently good condition. There were no intraoperative complications. * Brief Op Note - Artur Barrera - 02/19/2013 2:20 PM EST Brief Operative Note Patient Name: Herlinda Beltre : [id number] MR#: [id number] Case Date: 02/19/2013 Surgeon: Surgeon(s) and Role: * Ashley Torrez MD - Primary * Artur Barrera MD - Resident-Surgeon Anthony Preoperative diagnosis: ? PBC, abnormal LFTs, Ascites Postoperative diagnosis: chronic cholecystitis, nodular liver, ascites Procedure(s): LAPAROSCOPIC CHOLECYSTECTOMY LAPAROSCOPIC LIVER BIOPSY Anesthesia: General Findings: very inflamed, densely adherent GB with grossly cirrhotic appearing liver and ascites. Ascites sent for cytology and culture. Liver bx x 2. Complications: no immediate Fluids: 900cc Estimated Blood Loss: 150cc Drains: 19 Fr Keshav left in gallbladder fossa Disposition: awakened from anesthesia, extubated and taken to the recovery room in a stable condition, having suffered no apparent untoward event. Condition: doing well without problems (Please see the Surgical Encounter Summary for any Implant and Specimen details pertinent to this patient.) * Miscellaneous - Provider, Scanning - 02/19/2013 11:22 AM EST documented in this encounter Plan of Treatment Upcoming Encounters Date Type Department Care Team (Late st Contact Info) Description 09/14/2023 11:00 AM EDT Office [place] [id number] Mague Johnson MD [facility] [address] [place] [address] documented as of this encounter Procedures Procedure Name Priority Date/Time Associated Diagnosis Comments LAB SCAN 02/23/2013 10:50 AM EST POCT GLUCOSE Routine 02/22/2013 7:22 AM EST DIFFERENTIAL, AUTOMATED Routine 02/22/19 14 5:25 AM EST CBC (WITH DIFF) Routine 02/22/2013 5:25 AM EST BASIC METABOLIC PANEL (NON-FASTING) Routine 02/22/2013 5:25 AM EST POCT GLUCOSE Routine 02/22/2013 4:01 AM EST POCT GLUCOSE Routine 02/21/2013 11:50 PM EST POCT GLUCOSE Routine 02/21/2013 7:35 PM EST POCT GLUCOSE Routine 02/21/2013 3:53 PM EST POCT GLUCOSE Routine 02/21/2013 12:01 PM EST POCT GLUCOSE Routine 02/21/2013 7:23 AM EST DIFFERENTIAL, AUTOMATED Routine 02/21/19 14 5:44 AM EST CBC (WITH DIFF) Routine 02/21/2013 5:44 AM EST BASIC METABOLIC PANEL (NON-FASTING) Routine 02/21/2013 5:44 AM EST POCT GLUCOSE Routine 02/21/2013 5:08 AM EST POCT GLUCOSE Routine 02/20/2013 11:50 PM EST POCT GLUCOSE Routine 02/20/2013 8:16 PM EST POCT GLUCOSE Routine 02/20/2013 4:38 PM EST POCT GLUCOSE Routine 02/20/2013 11:53 AM EST POCT GLUCOSE Routine 02/20/2013 7:28 AM EST DIFFERENTIAL, AUTOMATED Routine 02/21/20 13 4:14 AM EST CREATININE Routine 02/20/2013 4:14 AM EST CBC (WITH DIFF) Routine 02/20/2013 4:14 AM EST BUN Routine 02/20/2013 4:14 AM EST PHOSPHORUS Routine 02/20/2013 4:14 AM EST MAGNESIUM Routine 02/20/2013 4:14 AM EST HEPATIC FUNCTION PANEL Routine 3 4:14 AM EST ELECTROLYTES PANEL Routine 02/20/2013 4: 14 AM EST POCT GLUCOSE Routine 02/20/2013 4:02 AM EST POCT GLUCOSE Routine 02/20/2013 12:03 AM EST POCT GLUCOSE Routine 02/19/2013 7:59 PM EST POCT GLUCOSE Routine 02/19/2013 5:43 PM EST BLUE TUBE HOLD Routine 02/19/2013 3:15 PM EST APTT STAT 02/19/2013 3:15 PM EST PROTHROMBIN TIME STAT 02/19/2013 3:15 PM EST POCT GLUCOSE Routine 02/19/2013 2:46 PM EST DIFFERENTIAL, AUTOMATED Routine 02/20/20 13 2:40 PM EST CBC (WITH DIFF) Routine 02/19/2013 2:40 PM EST SURGICAL PATHOLOGY REPORT Routine 02/19/2013 2:17 PM EST ANAEROBIC CULTURE Routine 02/19/2013 1:3 6 PM EST BODY FLUID CULTURE, AEROBIC & ANAEROBIC Routine 02/19/2013 1:36 PM EST BODY FLUID CULTURE, AEROBIC Routine 02/19/2013 1:36 PM EST SPECIMEN TO PATHOLOGY Routine 02/19/2013 1:26 PM EST SPECIMEN TO PATHOLOGY Routine 02/19/2013 1:21 PM EST NON-PLUMBING INSTRUCTOR FINAL REPORT Routine 02/19/2013 12:32 PM EST BILIRUBIN BODY FLUID Routine 02/19/2013 12:32 PM EST AMYLASE LEVEL BODY FLUID Routine 02/19/2013 12:32 PM EST ALBUMIN LEVEL BODY FLUID Routine 02/19/2013 12:32 PM EST CYTOPATHOLOGY NON-GYNECOLOGICAL Routine 02/19/2013 12:32 PM EST LAPAROSCOPIC LIVER BIOPSY (WRVU 16.52) 02/19/2013 11:40 AM EST Abdominal pain, RUQ (right upper quadrant) LAPAROSCOPIC CHOLECYSTECTOMY WITH CHOLANGIOGRAM (WRVU 11.47) 02/19/2013 11:40 AM EST Abdominal pain, RUQ (right upper quadrant) POCT GLUCOSE Routine 02/19/2013 9:18 AM EST documented in this encounter Results * SCAN DOC: LAB (02/23/2013 10:50 AM EST) Narrative 02/23/2013 10:50 AM EST Procedure Note Provider, Scanning - 02/23/2013 10:50 AM EST Scanning Provider MEDIA MGR SCAN EXT O RDR/RSLT * POCT Glucose (02/22/2013 7:22 AM EST) POC Glucose 120 60 - 199 mg/dL CERNER MILLENNIUM Comment: Supplemental ranges: <110 mg/dL before meals <200 mg/dL all other times of the day Blood specimen (specimen) 02/22/2013 7:22 AM EST 02/22/2013 7:22 AM EST Ashley Torrez MD POINT OF CARE TEST O RDERABLES CERNER MILLENNIUM * (ABNORMAL) Differential, Automated (02/22/2013 5:25 AM EST) Neutrophils % 58.4 34.0 - 71.0 % CERNER MILLENNIUM Neutr Abs (ANC) 3.69 1.50 - 6.30 x10(3)/mc L CERNER MILLENNIUM Lymphocytes % 23.5 19.0 - 53.0 % CERNER MILLENNIUM Lymphocytes Abs 1.5 1.0 - 3.6 x10(3)/mc L CERNER MILLENNIUM Monocytes % 14.8(H) 4.0 - 13.0 % CERNER MILLENNIUM Monocyte Abs 0.9 0.2 - 1.0 x10(3)/mc L CERNER MILLENNIUM Eosinophils % 2.8 0.0 - 7.0 % CERNER MILLENNIUM Eosinophils Abs 0.2 0.0 - 0.5 x10(3)/mc L CERNER MILLENNIUM Basophils % 0.3 0.0 - 2.0 % CERNER MILLENNIUM Basophils [...] x10(3)/mc L [facility]ERN[facility] MILLENNIUM Blood specimen (specimen) 02/22/2013 5:25 AM EST 02/22/2013 6:02 AM EST Ashley Torrez MD HEMATOLOGY ORDERABLE S [facility] MILLENNI[facility] * Basic Metabolic Panel (non-fasting) (02/22/2013 5:25 AM EST) Glucose Lvl 126 60 - 199 mg/dL [facility]ERN[facility] MILLENNIUM Comment:Diabetes: >=200 mg/d L plus symptoms BUN 10 8 - 18 mg/dL [facility]ERN[facility] MILLENNIUM Creatinine 0.84 0.70 - 1.20 mg/dL [facility]ERN[facility] MILLENNIUM Comment: Please note that the pediatric reference intervals supplied above were not validated at [facility]. Results from pediatric patients should be interpreted in conjunction to the patient's age, height and muscle mass. Sodium 140 135 - 145 mmol/L CERNER MILLENNIUM Potassium 4.4 3.5 - 5.0 mmol/L CERNER MILLENNIUM Comment: Please note: ??Patients with WBC >100,000 may have falsely elevated Potassium levels. ??For accurate Potassium quantification in these patients send serum separator tube (gold top) for subsequent determinations. ??Contact the Clinical Chemistry Laboratory if there are any questions. Chloride 106 98 - 107 mmol/L CERNER MILLENNIUM CO2 24 22 - 31 mmol/L CERNER MILLENNIUM Anion Gap 10 5 - 15 mmol/L CERNER MILLENNIUM Calcium 8.6 8.5 - 10.5 mg/dL CERNER MILLENNIUM Estimated [...] internet browser. http://www.nkdep.nih.gov/lab-evaluation.shtml http://www.kidney.org/professionals/ Blood specimen (specimen) 02/22/2013 5:25 AM EST 02/22/2013 6:02 AM EST Narrative Resulting Agency Comment Spec In Lab Ashley Torrez MD CHEMISTRY ORDERABLES CERMAYA JAMESLEXIIUM * (ABNORMAL) CBC (with Diff) (02/22/2013 5:25 AM EST) WBC 6.3 4.0 - 10.0 x10(3)/mcL CERNER MILLENNIUM RBC 4.85 3.93 - 5.22 x10(6)/mcL CERNER MILLENNIUM Hemoglobin 12.2 11.2 - 15.7 gm/dL CERNER MILLENNIUM Hematocrit 37.1 34.0 - 45.0 % CERNER MILLENNIUM MCV 76.5(L) 79.0 - 94.0 fL CERNER MILLENNIUM MCH 25.2(L) 26.6 - 32.2 pg CERNER MILLENNIUM MCHC 32.9 32.0 - 36.5 gm/dL CERNER MILLENNIUM Platelets 221 145 - 370 x10(3)/mcL CERNER MILLENNIUM RDWSD 48.3(H) 35.0 - 46.0 fL CERNER MILLENNIUM RDWCV 17.2(H) 10.9 - 14.4 % CERNER MILLENNIUM MPV 10.5 9.0 - 12.0 fL CERNER MILLENNIUM Blood specimen (specimen) 02/22/2013 5:25 AM EST 02/22/2013 6:02 AM EST Narrative Resulting Agency Comment Spec In Lab Ashley Torrez MD HEMATOLOGY ORDERABLE S [facility] * POCT Glucose (02/22/2013 4:01 AM EST) POC Glucose 127 60 - 199 mg/dL [facility] Comment: Supplemental ranges: <110 mg/dL before meals <200 mg/dL all other times of the day Blood specimen (specimen) 02/22/2013 4:01 AM EST 02/22/2013 4:01 AM EST Ashley Torrez MD POINT OF CARE TEST O RED Performing Organization Address [facility] Co de Phone Number [facility] * POCT Glucose (02/21/2013 11:50 PM EST) POC Glucose 127 60 - 199 mg/dL [facility] Comment: Supplemental ranges: <110 mg/dL before meals <200 mg/dL all other times of the day Blood specimen (specimen) 02/21/2013 11:50 PM EST 02/21/2013 11:50 PM EST Ashley Torrze MD POINT OF CARE TEST O RED Performing Organization Address [facility] de Phone Number [facility] * POCT Glucose (02/21/2013 7:35 PM EST) POC Glucose 131 60 - 199 mg/dL [facility] Comment: Supplemental ranges: <110 mg/dL before meals <200 mg/dL all other times of the day Blood specimen (specimen) 02/21/2013 7:35 PM EST 02/21/2013 7:35 PM EST Ashley Torrez MD POINT OF CARE TEST O RED Performing Organization Address [facility] de Phone Number [facility] * POCT Glucose (02/21/2013 3:53 PM EST) POC Glucose 110 60 - 199 mg/dL [facility] Comment: Supplemental ranges: <110 mg/dL before meals <200 mg/dL all other times of the day Blood specimen (specimen) 02/21/2013 3:53 PM EST 02/21/2013 3:53 PM EST Ashley Torrez MD POINT OF CARE TEST O RDERAAMBER Performing Organization Address [facility] de Phone Number KARO PENAIUM * POCT Glucose (02/21/2013 12:01 PM EST) POC Glucose 157 60 - 199 mg/dL CERNER JAMESENNIUM Comment: Supplemental ranges: <110 mg/dL before meals <200 mg/dL all other times of the day Blood specimen (specimen) 02/21/2013 12:01 PM EST 02/21/2013 12:01 PM EST Ashley Torrez MD POINT OF CARE TEST O RDERAAMBER Performing Organization Address [facility] Phone Number KARO PENAIUM * POCT Glucose (02/21/2013 7:23 AM EST) POC Glucose 150 60 - 199 mg/dL MANOLOMAYA RAMIREZENNIUM Comment: Supplemental ranges: <110 mg/dL before meals <200 mg/dL all other times of the day Blood specimen (specimen) 02/21/2013 7:23 AM EST 02/21/2013 7:23 AM EST Ashley Torrez MD POINT OF CARE TEST O RDERAAMBER Performing Organization Address [facility] Phone Number KARO RAMIREZENNIUM * (ABNORMAL) Differential, Automated (02/21/2013 5:44 AM EST) Neutrophils % 75.9(H) 34.0 - 71.0 % CERNER MILLENNIUM Neutr Abs (ANC) 9.77(H) 1.50 - 6.30 x10(3)/mc L CERNER MILLENNIUM Lymphocytes % 12.8(L) 19.0 - 53.0 % CERNER MILLENNIUM Lymphocytes Abs 1.6 1.0 - 3.6 x10(3)/mc L CERNER MILLENNIUM Monocytes % 10.2 4.0 - 13.0 % CERNER MILLENNIUM Monocyte Abs 1.3(H) 0.2 - 1.0 x10(3)/mc L CERNER MILLENNIUM Eosinophils % 0.8 0.0 - 7.0 % CERNER MILLENNIUM Eosinophils Abs 0.1 0.0 - 0.5 x10(3)/mc L CERNER MILLENNIUM Basophils % 0.1 0.0 - 2.0 % CERNER MILLENNIUM Basophils [...] differential will be performed. Ashley Gran Abs 0.03 0.00 - 0.05 x10(3)/mc L CERNER MILLENNIUM Blood specimen (specimen) 02/21/2013 5:44 AM EST 02/21/2013 5:54 AM EST Ashley Torrez MD HEMATOLOGY ORDERABLE S [facility] * (ABNORMAL) Basic Metabolic Panel (non-fasting) (02/21/2013 5:44 AM EST) Glucose Lvl 147 60 - 199 mg/dL CERNER MILLENNIUM Comment:Diabetes: >=200 mg/d L plus symptoms BUN 12 8 - 18 mg/dL CERNER MILLENNIUM Creatinine 1.05 0.70 - 1.20 mg/dL CERNER MILLENNIUM Comment: Please note that the pediatric reference intervals supplied above were not validated at [facility]. Results from pediatric patients should be interpreted in conjunction to the patient's age, height and muscle mass. Sodium 133(L) 135 - 145 mmol/L CERNER MILLENNIUM Potassium 4.4 3.5 - 5.0 mmol/L CERNER MILLENNIUM Comment: Please note: ??Patients with WBC >100,000 may have falsely elevated Potassium levels. ??For accurate Potassium quantification in these patients send serum separator tube (gold top) for subsequent determinations. ??Contact the Clinical Chemistry Laboratory if there are any questions. Chloride 100 98 - 107 mmol/L CERNER MILLENNIUM CO2 24 22 - 31 mmol/L CERNER MILLENNIUM Anion Gap 9 5 - 15 mmol/L CERNER MILLENNIUM Calcium 8.9 8.5 - 10.5 mg/dL CERNER MILLENNIUM Estimated GFR 56(L) >=60 CERNER MILLENNIUM Comment: This estimated GFR [...] internet browser. http://www.nkdep.nih.gov/lab-evaluation.shtml http://www.kidney.org/professionals/ Blood specimen (specimen) 02/21/2013 5:44 AM EST 02/21/2013 5:54 AM EST Narrative Resulting Agency Comment Spec In Lab Ashley Torrez MD CHEMISTRY ORDERABLES KARO RUBIN * (ABNORMAL) CBC (with Diff) (02/21/2013 5:44 AM EST) WBC 12.9(H) 4.0 - 10.0 x10(3)/mcL CERNER MILLENNIUM RBC 5.46(H) 3.93 - 5.22 x10(6)/mcL CERNER MILLENNIUM Hemoglobin 13.9 11.2 - 15.7 gm/dL CERNER MILLENNIUM Hematocrit 41.5 34.0 - 45.0 % CERNER MILLENNIUM MCV 76.0(L) 79.0 - 94.0 fL CERNER MILLENNIUM MCH 25.5(L) 26.6 - 32.2 pg CERNER MILLENNIUM MCHC 33.5 32.0 - 36.5 gm/dL CERNER MILLENNIUM Platelets 292 145 - 370 x10(3)/mcL [facility] M[facility] RDWSD 47.7(H) 35.0 - 46.0 fL [facility] JAMESENNIUM RDWCV 17.2(H) 10.9 - 14.4 % [facility] MILLENNIUM MPV 10.3 9.0 - 12.0 fL [facility] JAMESENNIUM Blood specimen (specimen) 02/21/2013 5:44 AM EST 02/21/2013 5:54 AM EST Narrative Resulting Agency Comment Spec In Lab Ashley Torrez MD HEMATOLOGY ORDERABLE S Performing Organization Address [facility] Co de Phone Number [facility] * POCT Glucose (02/21/2013 5:08 AM EST) POC Glucose 134 60 - 199 mg/dL [facility] Comment: Supplemental ranges: <110 mg/dL before meals <200 mg/dL all other times of the day Blood specimen (specimen) 02/21/2013 5:08 AM EST 02/21/2013 5:08 AM EST Ashley Torrez MD POINT OF CARE TEST O RED Performing Organization Address [facility] Phone Number [facility] * POCT Glucose (02/20/2013 11:50 PM EST) POC Glucose 125 60 - 199 mg/dL [facility] Comment: Supplemental ranges: <110 mg/dL before meals <200 mg/dL all other times of the day Blood specimen (specimen) 02/20/2013 11:50 PM EST 02/20/2013 11:50 PM EST Ashley Torrez MD POINT OF CARE TEST O RDERAAMBER Performing Organization Address [facility] de Phone Number [facility] * POCT Glucose (02/20/2013 8:16 PM EST) POC Glucose 125 60 - 199 mg/dL [facility] Comment: Supplemental ranges: <110 mg/dL before meals <200 mg/dL all other times of the day Blood specimen (specimen) 02/20/2013 8:16 PM EST 02/20/2013 8:16 PM EST Ashley Torrez MD POINT OF CARE TEST O FRANERAAMBER Performing Organization Address [facility] de Phone Number [facility] * POCT Glucose (02/20/2013 4:38 PM EST) POC Glucose 123 60 - 199 mg/dL [facility] Comment: Supplemental ranges: <110 mg/dL before meals <200 mg/dL all other times of the day Blood specimen (specimen) 02/20/2013 4:38 PM EST 02/20/2013 4:38 PM EST Ashley Torrez MD POINT OF CARE TEST O RED Performing Organization Address [facility] Phone Number [facility] * POCT Glucose (02/20/2013 11:53 AM EST) POC Glucose 142 60 - 199 mg/dL [facility] Comment: Supplemental ranges: <110 mg/dL before meals <200 mg/dL all other times of the day Blood specimen (specimen) 02/20/2013 11:53 AM EST 02/20/2013 11:53 AM EST Ashley Torrez MD POINT OF CARE TEST O RED Performing Organization Address [facility] de Phone Number [facility] * POCT Glucose (02/20/2013 7:28 AM EST) POC Glucose 135 60 - 199 mg/dL [facility] Comment: Supplemental ranges: <110 mg/dL before meals <200 mg/dL all other times of the day Blood specimen (specimen) 02/20/2013 7:28 AM EST 02/20/2013 7:28 AM EST Ashley Torrez MD POINT OF CARE TEST O FRANERAAMBER [facility]ARO RAMIREZENNIUM * (ABNORMAL) Differential, Automated (02/20/2013 4:14 AM EST) Neutrophils % 84.5(H) 34.0 - 71.0 % CERNER MILLENNIUM Neutr Abs (ANC) 9.58(H) 1.50 - 6.30 x10(3)/mc L CERNER MILLENNIUM Lymphocytes % 10.0(L) 19.0 - 53.0 % CERNER MILLENNIUM Lymphocytes Abs 1.1 1.0 - 3.6 x10(3)/mc L CERNER MILLENNIUM Monocytes % 5.2 4.0 - 13.0 % CERNER MILLENNIUM Monocyte Abs 0.6 0.2 - 1.0 x10(3)/mc L CERNER MILLENNIUM Eosinophils % 0.0 0.0 - 7.0 % CERNER MILLENNIUM Eosinophils Abs 0.0 0.0 - 0.5 x10(3)/mc L CERNER MILLENNIUM Basophils % 0.0 0.0 - 2.0 % CERNER MILLENNIUM Basophils Abs 0.0 0.0 - 0.2 x10(3)/mc L CERNER MILLENNIUM Immature Gran % 0.30 0.00 - 0.66 % CERNER MILLENNIUM Comment: Immature granulocytes(IG's)percentage and absolute count will include metamyelocytes, myelocytes, and promyelocytes. Blood smears from CBCs yielding IG's will be scanned manually for concordance. If this scan disagrees with the automated IG or if promyelocytes are noted, a manual differential will be performed. Ashley Gran Abs 0.03 0.00 - 0.05 x10(3)/mc L CERNER MILLENNIUM Blood specimen (specimen) 02/20/2013 4:14 AM EST 02/20/2013 4:21 AM EST Ashley Torrez MD HEMATOLOGY ORDERABLE S KARO PENAIUM * (ABNORMAL) Hepatic Function Panel (02/20/2013 4:14 AM EST) Total Protein 7.0 6.4 - 8.3 gm/dL CERNER MILLENNIUM Albumin 4.1 3.2 - 5.2 gm/dL CERNER MILLENNIUM AST 63(H) 0 - 30 unit/L CERNER MILLENNIUM ALT 31(H) 0 - 30 unit/L CERNER MILLENNIUM Alk Phos 256(H) 40 - 104 unit/L CERNER MILLENNIUM Total Bilirubin 0.8 0.2 - 1.3 mg/dL CERNER MILLENNIUM Bili, Direct 0.3 0.0 - 0.3 mg/dL CERNER MILLENNIUM Blood specimen (specimen) 02/20/2013 4:14 AM EST 02/20/2013 4:21 AM EST Narrative Resulting Agency Comment Spec In Lab Ashley Torrez MD CHEMISTRY ORDERABLES Performing Organization Address [facility] Phone Number [facility] * Phosphorus (02/20/2013 4:14 AM EST) Phosphorus 4.3 2.5 - 4.5 mg/dL [facility] JAMES[facility] Blood specimen (specimen) 02/20/2013 4:14 AM EST 02/20/2013 4:21 AM EST Narrative Resulting Agency Comment Spec In Lab Ashley Torrez MD CHEMISTRY ORDERABLES Performing Organization Address [facility] Phone Number [facility] * Magnesium (02/20/2013 4:14 AM EST) Magnesium 0.72 0.69 - 1.07 mmol/L [facility] J[facility] Blood specimen (specimen) 02/20/2013 4:14 AM EST 02/20/2013 4:21 AM EST Narrative Resulting Agency Comment Spec In Lab Ashley Torrez MD CHEMISTRY ORDERABLES Performing Organization Address [facility] Phone Number [facility] * (ABNORMAL) Creatinine (02/20/2013 4:14 AM EST) Creatinine 1.01 0.70 - 1.20 mg/dL [facility] Comment: Please note that the pediatric reference intervals supplied above were not validated at [facility]. Results from pediatric patients should be interpreted in conjunction to the patient's age, height and muscle mass. Estimated GFR 59(L) >=60 CERNER MILLENNIUM Comment: This estimated GFR [...] internet browser. http://www.nkdep.nih.gov/lab-evaluation.shtml http://www.kidney.org/professionals/ Blood specimen (specimen) 02/20/2013 4:14 AM EST 02/20/2013 4:21 AM EST Narrative Resulting Agency Comment Spec In Lab Ashley Torrez MD CHEMISTRY ORDERABLES Performing Organization Address [facility] de Phone Number CERMAYA RAMIREZENNIUM * BUN (02/20/2013 4:14 AM EST) BUN 9 8 - 18 mg/dL CERNER MILLENNIUM Blood specimen (specimen) 02/20/2013 4:14 AM EST 02/20/2013 4:21 AM EST Narrative Resulting Agency Comment Spec In Lab Ashley Torrez MD CHEMISTRY ORDERABLES Performing Organization Address [facility] [place]/[facility] de Phone Number CERMAYA RAMIREZENNIUM * (ABNORMAL) Electrolytes panel (02/20/2013 4:14 AM EST) Sodium 132(L) 135 - 145 mmol/L CERNER MILLENNIUM Potassium 4.6 3.5 - 5.0 mmol/L CERNER MILLENNIUM Comment: Please note: ??Patients with WBC >100,000 may have falsely elevated Potassium levels. ??For accurate Potassium quantification in these patients send serum separator tube (gold top) for subsequent determinations. ??Contact the Clinical Chemistry Laboratory if there are any questions. Chloride 98 98 - 107 mmol/L CERNER MILLENNIUM CO2 23 22 - 31 mmol/L CERNER MILLENNIUM Anion Gap 11 5 - 15 mmol/L CERNER MILLENNIUM Blood specimen (specimen) 02/20/2013 4:14 AM EST 02/20/2013 4:21 AM EST Narrative Resulting Agency Comment Spec In Lab Ashley Torrez MD CHEMISTRY ORDERABLES Performing Organization Address City/[facility] [place]/ZIP Co de Phone Number KARO PENAIUM * (ABNORMAL) CBC (with Diff) (02/20/2013 4:14 AM EST) WBC 11.3(H) 4.0 - 10.0 x10(3)/mcL CERNER MILLENNIUM RBC 5.40(H) 3.93 - 5.22 x10(6)/mcL CERNER MILLENNIUM Hemoglobin 13.7 11.2 - 15.7 gm/dL CERNER MILLENNIUM Hematocrit 43.3 34.0 - 45.0 % CERNER MILLENNIUM MCV 80.2 79.0 - 94.0 fL CERNER MILLENNIUM MCH 25.4(L) 26.6 - 32.2 pg CERNER MILLENNIUM MCHC 31.6(L) 32.0 - 36.5 gm/dL CERNER MILLENNIUM Platelets 317 145 - 370 x10(3)/mcL CERNER MILLENNIUM RDWSD 52.2(H) 35.0 - 46.0 fL CERNER MILLENNIUM RDWCV 18.0(H) 10.9 - 14.4 % CERNER MILLENNIUM MPV 10.8 9.0 - 12.0 fL CERNER MILLENNIUM Blood specimen (specimen) 02/20/2013 4:14 AM EST 02/20/2013 4:21 AM EST Narrative Resulting Agency Comment Spec In Lab Ashley Torrez MD HEMATOLOGY ORDERABLE S KARO PENAIUM * POCT Glucose (02/20/2013 4:02 AM EST) POC Glucose 153 60 - 199 mg/dL CERNER MILLENNIUM Comment: Supplemental ranges: <110 mg/dL before meals <200 mg/dL all other times of the day Blood specimen (specimen) 02/20/2013 4:02 AM EST 02/20/2013 4:02 AM EST Ashley Torrez MD POINT OF CARE TEST O RED Performing Organization Address [facility] [place]/[facility] Phone Number [facility] * POCT Glucose (02/20/2013 12:03 AM EST) POC Glucose 157 60 - 199 mg/dL [facility] Comment: Supplemental ranges: <110 mg/dL before meals <200 mg/dL all other times of the day Blood specimen (specimen) 02/20/2013 12:03 AM EST 02/20/2013 12:03 AM EST Ashley Torrez MD POINT OF CARE TEST O RED Performing Organization Address [facility] Phone Number [facility] * POCT Glucose (02/19/2013 7:59 PM EST) POC Glucose 166 60 - 199 mg/dL [facility] Comment: Supplemental ranges: <110 mg/dL before meals <200 mg/dL all other times of the day Blood specimen (specimen) 02/19/2013 7:59 PM EST 02/19/2013 7:59 PM EST Ashley Torrez MD POINT OF CARE TEST O RED Performing Organization Address [facility] Phone Number [facility] * POCT Glucose (02/19/2013 5:43 PM EST) POC Glucose 164 60 - 199 mg/dL [facility] Comment: Supplemental ranges: <110 mg/dL before meals <200 mg/dL all other times of the day Blood specimen (specimen) 02/19/2013 5:43 PM EST 02/19/2013 5:43 PM EST Ashley Torrez MD POINT OF CARE TEST O RDERABLES Performing Organization Address [facility] [place]/[facility] de Phone Number KARO RAMIREZ[facility]ALTH[facility] S[facility] ARIZONAIUM * Blue Tube HOLD (02/19/2013 3:15 PM EST) Pathologist [facility] Blue Hold Sample in lab. [facility] Blood specimen (specimen) 02/19/2013 3:15 PM EST 02/19/2013 3:38 PM EST Ashley Torrez MD HEMATOLOGY ORDERABLE S Performing Organization Address [facility] [place]/[facility] de Phone Number [facility] * APTT (02/19/2013 3:15 PM EST) Pathologist [facility] PTT 30 25 - 35 sec [facility] Comment: Recommended therapeutic PTT range for full dose unfractionated heparin is 80-114 seconds. Blood specimen (specimen) 02/19/2013 3:15 PM EST 02/19/2013 3:40 PM EST Narrative Resulting Agency Comment Spec In Lab Ashley Torrez MD HEMATOLOGY ORDERABLE S Performing Organization Address [facility] Phone Number [facility] * (ABNORMAL) Prothrombin Time (02/19/2013 3:15 PM EST) Pathologist [facility] PT 15.7(H) 12.0 - 15.0 sec [facility] Comment: [facility] Transfusion Committee Guidelines: INR less than 2.0, PTT less than OR equal to 43.5 seconds, or Fibrinogen greater than or equal to 100 mg/dl indicate adequate procoagulant activity for hemostasis in patients without underlying bleeding disorders. INR 1.2(H) 0.9 - 1.1 [facility] Blood specimen (specimen) 02/19/2013 3:15 PM EST 02/19/2013 3:40 PM EST Narrative Resulting Agency Comment Spec In Lab Ashley Torrez MD HEMATOLOGY ORDERABLE S Performing Organization Address [facility] [place]/[facility] de Phone Number [facility] * POCT Glucose (02/19/2013 2:46 PM EST) POC Glucose 129 60 - 199 mg/dL CERNER MILLENNIUM Comment: Supplemental ranges: <110 mg/dL before meals <200 mg/dL all other times of the day Blood specimen (specimen) 02/19/2013 2:46 PM EST 02/19/2013 2:46 PM EST Ashley Torrez MD POINT OF CARE TEST O RED CERNER MILLENNIUM * (ABNORMAL) Differential, Automated (02/19/2013 2:40 PM EST) Pathologist [facility] Neutrophils % 87.9(H) 34.0 - 71.0 % CERNER MILLENNIUM Neutr Abs (ANC) 8.47(H) 1.50 - 6.30 x10(3)/mc L CERNER MILLENNIUM Lymphocytes % 9.1(L) 19.0 - 53.0 % CERNER MILLENNIUM Lymphocytes Abs 0.9(L) 1.0 - 3.6 x10(3)/mc L CERNER MILLENNIUM Monocytes % 2.3(L) 4.0 - 13.0 % CERNER MILLENNIUM Monocyte Abs 0.2 0.2 - 1.0 x10(3)/mc L CERNER MILLENNIUM Eosinophils % 0.4 0.0 - 7.0 % CERNER MILLENNIUM Eosinophils Abs 0.0 0.0 - 0.5 x10(3)/mc L CERNER MILLENNIUM Basophils % 0.1 0.0 - 2.0 % CERNER MILLENNIUM Basophils [...] x10(3)/mc L CERNER MILLENNIUM Blood specimen (specimen) 02/19/2013 2:40 PM EST 02/19/2013 2:55 PM EST Ashley Torrez MD HEMATOLOGY ORDERABLE S KARO RAMIREZENNIUM * (ABNORMAL) CBC (with Diff) (02/19/2013 2:40 PM EST) WBC 9.6 4.0 - 10.0 x10(3)/mcL CERNER MILLENNIUM RBC 5.17 3.93 - 5.22 x10(6)/mcL CERNER MILLENNIUM Hemoglobin 12.9 11.2 - 15.7 gm/dL CERNER MILLENNIUM Hematocrit 39.9 34.0 - 45.0 % CERNER MILLENNIUM MCV 77.2(L) 79.0 - 94.0 fL CERNER MILLENNIUM MCH 25.0(L) 26.6 - 32.2 pg CERNER MILLENNIUM MCHC 32.3 32.0 - 36.5 gm/dL CERNER MILLENNIUM Platelets 216 145 - 370 x10(3)/mcL CERNER MILLENNIUM RDWSD 49.2(H) 35.0 - 46.0 fL CERNER MILLENNIUM RDWCV 17.4(H) 10.9 - 14.4 % CERNER MILLENNIUM MPV 10.4 9.0 - 12.0 fL CERNER MILLENNIUM Blood specimen (specimen) 02/19/2013 2:40 PM EST 02/19/2013 2:55 PM EST Narrative Resulting Agency Comment Spec In Lab Ashley Torrez MD HEMATOLOGY ORDERABLE S KARO RUBIN * Surgical Pathology Report (02/19/2013 2:17 PM EST) Surgical Pathology Report ? [facility] ? Provider: ?? ASHLEY TORREZ ?Pt. Name: ?? HERLINDA BELTRE ? Acc #: ?[id number] ?Pt. ? Col Date: ?? 02/19/2013 ?/Sex: ?1965,(47 years),Female ? Rec Date: ?? 02/19/2013 ?LOC: ?4WST ? SURGICAL PATHOLOGY ? ---Pathologic Diagnosis--- ? A - Gallbladder, cholecystectomy: ? gallbladder, negative for diagnostic abnormality. ? B - Liver, biopsy: ? Features consistent with chronic venous outflow obstruction. ? Cirrhosis (see Note). ? NOTE: ??The biopsy shows a pattern of repetitive prominent sinusoidal ? dilatation and possible hemmorhage centering on zone 3 with several areas ? of adjacent fibrosis. There are scattered clusters of lobular inflammatoty ? cells. Plasma cells are inconspicuous. Pericellular/cyndee sinusoidal fibrosis ? is unusually prominent and merges with bridging fibrosis. Residual portal ? areas are expanded by fibrosis highlighted by trichrome stain. ??A focal ? portal inflammatory infiltrate consisting mainly of lymphocytes is present. ? Ductular reaction is noted. ??There is no cholestasis, steatosis or ? significant bile duct injury. Iron stain is negative. In summary, there is ? no evidence of chronic cholangiopathy. There is also no sufficient evidence ? to raise a possibility of autoimmune hepatitis. Differential diagnosis ? includes Budd-Chiari syndrome and constrictive pericarditis in a patient ? with history of previous pericarditis. ? CR-0 ? 02/23/13 ? BJM ? 02/23/13 Verified by: ? Domingo Isaacs MD ? Pathologist ? (Electronic Signature) ? The attending pathologist whose signature appears on this report has ? reviewed all diagnostic slides and has edited the gross and/or ? microscopic portion of the report in rendering the final pathologic ? diagnosis. ? ---Microscopic Description--- ? Whole slide scan: B1-3, B1-4 ? Special stains are performed. ? Block ? Stain ? Result ( Positive / Negative ) ?B1 ? Iron ? See Note. ? [facility] ? Provider: ?? ASHLEY TORREZ ?Pt. Name: ?? HERLINDA BELTRE ? Acc #: ?[id number] ?Pt. ? Col Date: ?? 02/19/2013 ?/Sex: ?1965,(47 years),Female ? Rec Date: ?? 02/19/2013 ?LOC: ?4WST ? SURGICAL PATHOLOGY ?B1 ? Trichrome ?See Note. ? ---Gross Description--- ? A - Labeled/Fixative: Gallbladder, fresh. ? Quantity/Size: Single, 5.0 x 2.6 x 1.1 cm. ? Specimen Description: Intact gallbladder. ? External surface: Smooth, pink and shiny, with attached macerated soft ? tissue on adventitial surface. ? Lumen contents: Very minimal red-brown fluid. ? Mucosa: Velvety, with stippled yellow foci. ? Wall: 0.2 cm thick, intact. ? Duct: Not included. ? Lymph Node: Not included. ? Sections/Processi ng: Landscape Painter sections are submitted in cassette A1. ? (R1) ? B - Labeled/Fixative: Liver biopsy, fresh. ? Quantity/Size: Two, 1.5 x 0.1 x 0.1 cm, and 1.0 x 0.1 x 0.1 cm. ? Tissue Description: craft- pink cores of tissue. ? Sections/Processi ng: The specimen is entirely submitted in cassette B1 (T1) ? kjp ? ---Clinical Information--- ? Specimen Submitted: ? A - Gallbladder ? B - Liver biopsy ? Clinical History: ?PBC, abnormal LFTs, ascites ? Clinical Diagnosis: ? Same KARO RUBIN 02/19/2013 2:17 PM EST Ashley Torrez MD PATHOLOGY/CYTOLOGY O RED Performing Organization Address City/State/[facility] Co de Phone Number [facility] * Anaerobic Culture (02/19/2013 1:36 PM EST) Anaerobic Culture ? Patient Name: HERLINDA BELTRE ? Ordered By: ASHLEY TORREZ ? MR#: [id number] ?LOC: ??4WST ? /Sex: ??1965 (47 years), ? Female ? PROCEDURE: Anaerobic Culture ?SOURCE: Ascites Fl ? COLLECTED: 02/19/2013 13:36 ? STARTED: 02/19/2013 14:28 ? FINAL REPORT ? Final Report ? Verified:2013 13:14 ? No anaerobic organisms isolated ? PRELIMINARY REPORT ? Preliminary Report ? Verified:2012 13:54 ? No anaerobic organisms isolated to date ? KARO PENAIUM Peritoneal fluid specimen (specimen) 02/19/2013 1:36 PM EST 02/19/2013 2:27 PM EST Narrative Resulting Agency Comment Spec In Lab Ashley Torrez MD MICROBIOLOGY - GENER AL ORDERABLES [facility] * Body fluid culture (02/19/2013 1:36 PM EST) Body Fluid Culture ? Patient Name: HERLINDA BELTRE ? Ordered By: ASHLEY TORREZ ? MR#: [id number] ?LOC: ??4WST ? /Sex: ??1965 (47 years), ? Female ? PROCEDURE: Body Fluid Culture ?SOURCE: Ascites Fl ? COLLECTED: 02/19/2013 13:36 ? STARTED: 02/19/2013 14:27 ? STAINS / PREPARATIONS ? Gram Stain Report ? Verified:02/20/20 13 15:06 ? Cytocentrifuge Gram Stain performed ? White Blood Cells seen ? No microorganisms seen. ? FINAL REPORT ? Final Report ? Verified:02/23/19 14 09:17 ? No growth ? PRELIMINARY REPORT ? Preliminary Report ? Verified:02/21/20 13 07:59 ? No growth to date. ? CERNER MILLENNIUM Peritoneal fluid specimen (specimen) 02/19/2013 1:36 PM EST 02/19/2013 2:27 PM EST Narrative Resulting Agency Comment Spec In Lab Ashley Torrez MD MICROBIOLOGY - GENER AL ORDERABLES Performing Organization Address [facility] [place]/[facility] de Phone Number KARO RUBIN * Specimen to Pathology (surgical or derm) (02/19/2013 1:26 PM EST) AP Specimen 02/19/2013 1:26 PM EST 02/19/2013 1:26 PM EST Narrative CERNER MILLENNIUM - 02/19/2013 1:26 PM EST Specimen requisition ordered. ??Separate Pathology report to follow Ashley Torrez MD PATHOLOGY/CYTOLOGY O RDERABLES Performing Organization Address [facility] [place]/[facility] Co de Phone Number KARO RUBIN * Specimen to Pathology (surgical or derm) (02/19/2013 1:21 PM EST) AP Specimen 02/19/2013 1:21 PM EST 02/19/2013 1:21 PM EST Narrative CERNER MILLENNIUM - 02/19/2013 1:21 PM EST Specimen requisition ordered. ??Separate Pathology report to follow Ashley Torrez MD PATHOLOGY/CYTOLOGY O RDERABLES Performing Organization Address City/State/ZIP Co nm Phone Number KARO RUBIN * Non-Legal Manager Final Report (02/19/2013 12:32 PM EST) Non-Legal Manager Final Report ? [facility] ? Provider: ?? ASHLEY TORREZ ?Pt. Name: ?? HERLINDA BELTRE ? Acc #: ?[id number] ?Pt. ? Col Date: ?? 02/19/2013 ?/Sex: ?1965,(47 years),Female ? Rec Date: ?? 02/19/2013 ?LOC: ?4WST ? CYTOPATHOLOGY: ??NGYN ? ---Adequacy--- ? Specimen submitted is satisfactory. ? ---Cytopathologic Diagnosis--- ? Negative for Malignancy ? 02/22/13 ?Screened by: ? SLA ? Rescreened by: ?? EJG ? 02/22/13 ?Verified by: ? Payton VOGT, Nilo Sultana ?Cytopathologist ?(Electronic Signature) ? ---Comment--- ? Peritoneal fluid (ascites): Mesothelial cells and chronic inflammatory ? cells present. ? (Cell block correlates.) ? ---Clinical Information--- ? Specimen Source: ?Peritoneal fluid (ascites) ? Pertinent Clinical Data and Significant Therapy: ? PBC, abnormal LFTs, ascites ? Clinical Impression: ? PBC, abnormal LFTs, ascites ? Pertinent Radiologic Findings: ?(not provided) ? Gross Description: ?Received fresh, approximately 50 ml. total volume of cloudy, carli ? fluid. ?Total Preparation: Liquid Based Prep 1; Cell Block 1. [facility]UM 02/19/2013 12:3 2 PM EST Ashley Torrez MD PATHOLOGY/CYTOLOGY O RDERABLES Performing Organization Address [facility] [place]/[facility] de Phone Number [facility] * Albumin Level Body Fluid (02/19/2013 12:32 PM EST) Albumin, BF 2.7 gm/dL [facility] Comment: In the evaluation of ascites, a serum (or plasma) ? ascites albumin gradient equal to or greater than 1.1 g/dL is usually associated with portal hypertension. ??A gradient less than 1.1 g/dL is usually seen in patients who do not have portal hypertension. No reference range is available for the specimen type submitted. ??The performance of this assay for the submitted type has not been validated and results should be interpreted accordingly and with regard to the patient's clinical status. Albumin BF Type Ascites fluid [facility] Peritoneal fluid specimen (specimen) 02/19/2013 12:32 PM EST 02/19/2013 2:22 PM EST Narrative Resulting Agency Comment Spec In Lab Ashley Torrez MD BODY FLUIDS AND STOO LS ORDERABLES Performing Organization Address [facility] [place]/[facility] de Phone Number [facility] * Amylase Level Body Fluid (02/19/2013 12:32 PM EST) Amylase, BF 10 unit/L [facility] Comment: No reference range is available for the specimen type submitted. ??The performance of this assay for the submitted type has not been validated and results should be interpreted accordingly and with regard to the patient's clinical status. Amylase BF Type Ascites fluid CERNER MILLENNIUM Peritoneal fluid specimen (specimen) 02/19/2013 12:32 PM EST 02/19/2013 2:22 PM EST Narrative Resulting Agency Comment Spec In Lab Ashley Torrez MD BODY FLUIDS AND STOO LS ORDERABLES Performing Organization Address [facility] [place]/[facility] de Phone Number [facility] * Bilirubin Body Fluid (02/19/2013 12:32 PM EST) Bilirubin BF 0.5 mg/dL [facility] Comment: No reference range is available for the specimen type submitted. ??The performance of this assay for the submitted type has not been validated and results should be interpreted accordingly and with regard to the patient's clinical status. Bili BF Type Ascites fluid [facility] Peritoneal fluid specimen (specimen) 02/19/2013 12:32 PM EST 02/19/2013 2:22 PM EST Narrative Resulting Agency Comment Spec In Lab Ashley Torrez MD BODY FLUIDS AND STOO LS ORDERABLES Performing Organization Address [facility] Phone Number [facility] * Cytopathology Non-Gynecological (02/19/2013 12:32 PM EST) AP Specimen 02/19/2013 12:3 2 PM EST 02/19/2013 12:32 PM EST Narrative [facility] - 02/19/2013 12:32 PM EST Specimen requisition ordered. ??Separate Pathology report to follow Ashley Torrez MD PATHOLOGY/CYTOLOGY O RDERABLES Performing Organization Address [facility] [place]/[facility] Co de Phone Number [facility] * POCT Glucose (02/19/2013 9:18 AM EST) POC Glucose 132 60 - 199 mg/dL [facility] Comment: Supplemental ranges: <110 mg/dL before meals <200 mg/dL all other times of the day Blood specimen (specimen) 02/19/2013 9:18 AM EST 02/19/2013 9:18 AM EST Ashley Torrez MD POINT OF CARE TEST O RDERABLES [facility] documented in this encounter Visit Diagnoses Diagnosis Restless legs syndrome (RLS) Ascites Other ascites Abdominal pain, RUQ (right upper quadrant) Abdominal pain, right upper quadrant documented in this encounter Administered Medications Inactive Administered Medications - up to 3 most recent administrations Medication Order MAR Action Action Date Dose Rate Site albumin, human 5% 250 mL bottle Intravenous, at 500 mL/hr, ONCE, 1 dose, On Tue02/20/13 at 1215, 500 mL bolus., Routine Given 02/20/2013 2:24 PM EST 500 mL/hr Given 02/20/2013 1:30 PM EST 500 mL/hr BUpivacaine (PF) (MARCAINE) 0.5 % (5 mg/mL) injection ONCE PRN, Starting on Tue02/19/13 at 1356, Until Tue02/19/13 at 1638, Intra-Operative (Intra-Procedure), Routine Given 02/19/2013 1:56 PM EST 30 mLs ceFAZolin (ANCEF) 1g in dextrose 5% 50mL 1,000 mg (1 g), Intravenous, EVERY 8 HOURS, 3 doses, First dose on Tue02/19/13 at 1700, Last dose on Tue02/20/13 at 0900, Administer over 30 Minutes, Indication for (Active or Suspected): Prophylaxis Given 02/20/2013 8:32 AM EST 1,000 mg 100 mL/hr Given 02/20/2013 1:22 AM EST 1,000 mg 100 mL/hr Given 02/19/2013 5:30 PM EST 1,000 mg 100 mL/hr dextrose 5% and sodium chloride 0.45% infusion 1,000 mL, at 100 mL/hr, Intravenous, CONTINUOUS, Starting on Tue02/19/13 at 1500, Until Tue02/20/13 at 0740 New Bag 02/20/2013 1:22 AM EST 1,000 mL s 100 mL/hr New Bag 02/19/2013 3:00 PM EST 1,000 mLs 100 mL/hr dextrose 5% and sodium chloride 0.45% infusion 1,000 mL, at 10 mL/hr, Intravenous, CONTINUOUS, Starting on Tue02/20/13 at 0800, Until Tue02/22/13 at 1230 New Bag 02/20/2013 11:57 AM EST 1,000 mLs 10 mL/hr diphenhydrAMINE (BENADRYL) injection 25 mg 25 mg, Intravenous, EVERY 30 MIN PRN, 2 doses, Starting on Tue02/19/13 at 1640, Until Tue02/22/13 at 1230, Itching, May repeat dose in 30 minutes if pruritis not relieved., Routine Given 02/20/2013 12:06 PM EST 25 mg docusate sodium (COLACE) capsule 100 mg 100 mg, Oral, 2 TIMES DAILY, First dose on Tue02/19/13 at 2100, Until Discontinued, Routine Given 02/22/2013 8:38 AM EST 100 mg Given 02/21/2013 8:32 PM EST 100 mg Given 02/21/2013 9:00 AM EST 100 mg esomeprazole (NEXIUM) capsule 40 mg 40 mg, Oral, DAILY, First dose on Tue02/19/13 at 1700, Until Discontinued, Routine Given 02/22/2013 8:38 AM EST 40 mg Given 02/21/2013 9:00 AM EST 40 mg Given 02/20/2013 8:29 AM EST 40 mg FLUoxetine (PROZAC) capsule 40 mg 40 mg, Oral, DAILY, First dose on Tue02/20/13 at 0900, Until Discontinued, Routine Given 02/22/2013 8:38 AM EST 40 mg Given 02/21/2013 9:00 AM EST 40 mg Given 02/20/2013 8:29 AM EST 40 mg furosemide (LASIX) tablet 20 mg 20 mg, Oral, DAILY, First dose on Tue02/20/13 at 1300, Until Discontinued, Routine Given 02/22/2013 8:38 AM EST 20 mg Given 02/21/2013 9:00 AM EST 20 mg Given 02/20/2013 1:00 PM EST 20 mg heparin (porcine) subcutaneous injection 5,000 Units 5,000 Units, Subcutaneous, EVERY 12 HOURS SCHEDULED (2 times per day), First dose on Tue02/20/13 at 1300, Until Discontinued, Routine Given 02/22/2013 8:38 AM EST 5,000 Units Given 02/21/2013 8:32 PM EST 5,000 Units Given 02/21/2013 9:00 AM EST 5,000 Units HYDROmorphone (DILAUDID) 1 mg/mL CORPORATE SAFETY COORDINATOR 30 mL Intravenous, CORPORATE SAFETY COORDINATOR ONLY, Starting on Tue02/19/13 at 1500, Until Tue02/21/13 at 0938 New Syringe/Cartridge 02/19/2013 3:00 PM EST HYDROmorphone (DILAUDID) injection 0.2-0.4 mg 0.2-0.4 mg, Intravenous, EVERY 5 MIN PRN, Starting on Tue02/19/13 at 1354, Until Tue02/19/13 at 1638, Pain, For moderate pain give: 0.2 mg every 5 minute prn For severe pain give: 0.4 mg every 5 minutes prn Maximum dose: 4 mg per hour Hold for respiratory rate less than 10 per minute., PACU Recovery, Routine Given 02/19/2013 3:55 PM EST 0.4 mg Given 02/19/2013 3:43 PM EST 0.4 mg Given 02/19/2013 3:30 PM EST 0.4 mg HYDROmorphone (DILAUDID) tablet 2-4 mg 2-4 mg, Oral, EVERY 4 HOURS PRN, Starting on Tue02/21/13 at 0938, Until Alyson 02/22/13 at 1230, Pain, Routine Given 02/22/2013 8:25 AM EST 2 mg Given 02/21/2013 7:30 PM EST 2 mg Given 02/21/2013 3:05 PM EST 2 mg insulin aspart (novoLOG) PEN injection 2-8 Units 2-8 Units, Subcutaneous, EVERY 4 HOURS SCHEDULED, First dose on Tue02/19/13 at 1745, Until Discontinued, CORRECTION BOLUS Moderate BG 140 - 160 Give 2 units BG 161 - 200 Give 4 units BG 201 - 240 Give 6 units BG greater than 240, give 8 units and recheck BG in 2 hours. If BG remains greater than 240, repeat 8 units (no more than three times) & call for new basal insulin orders. If less than 240 after two hours, give no insulin and resume prior schedule., Routine Given 02/21/2013 12:00 PM EST 2 Units Given 02/21/2013 8:00 AM EST 2 Units Given 02/20/2013 12:00 PM EST 2 Units lactated ringers infusion 1,000 mL 1,000 mL, at 100 mL/hr, Intravenous, CONTINUOUS, Starting on Tue02/19/13 at 1415, Until Tue02/19/13 at 1638, PACU Recovery Rate/Dose Verify 02/19/2013 2:15 PM EST 1,000 mLs 100 mL/hr lidocaine (XYLOCAINE) 10 mg/mL (1 %) injection 10 mg 10 mg, Subcutaneous, ONCE, 1 dose, On Tue02/21/13 at 1100, Routine Given by Other 02/21/2013 9:15 AM EST 10 mg lidocaine (XYLOCAINE) 10 mg/mL (1 %) injection 1 dose, Starting on Tue02/21/13 at 0906, Until Tue02/21/13 at 0915, TISH MILLER: cabinet override scopolamine (TRANSDERM-SCOP) 1.5 mg patch 1 patch 1 patch, Transdermal, EVERY 72 HOURS, First dose on Tue02/19/13 at 1145, Until Discontinued, Routine Given 02/19/2013 11:22 AM EST 1 patch sodium chloride 0.9 % flush 5 mL 5 mL, Intravenous, EVERY 12 HOURS, First dose on Tue02/19/13 at 0930, Until Discontinued, Day of Surgery (Day of Procedure), Routine Given by Other 02/19/2013 9:30 AM EST 5 mLs sodium chloride 0.9 % flush 5 mL 5 mL, Intravenous, EVERY 12 HOURS, First dose on Tue02/19/13 at 1500, Until Discontinued Given 02/22/2013 4:06 AM EST 5 mLs Given 02/21/2013 3:00 PM EST 5 mLs Given 02/21/2013 3:00 AM EST 5 mLs spironolactone (ALDACTONE) tablet 100 mg 100 mg, Oral, DAILY, First dose on Tue02/21/13 at 1100, Until Discontinued, Routine Given 02/22/2013 8:38 AM EST 100 mg Given 02/21/2013 11:00 AM EST 100 mg traZODone (DESYREL) tablet 150 mg 150 mg, Oral, NIGHTLY, First dose on Tue02/19/13 at 2100, Until Discontinued, Routine Given 02/21/2013 8:3 2 PM EST 150 mg Given 02/20/2013 9:00 PM EST 150 mg Given 02/19/2013 8:30 PM EST 150 mg documented in this encounter Active and Recently Administered Medications Times are shown in EST. Scheduled Medication Order 02/20/2013 02/21/2013 02/22/2013 albumin, human 5% 250 mL bottle (COMPLETED) Intravenous, at 500 mL/hr, ONCE, 1 dose, On Tue02/20/13 at 1215, 500 mL bolus., Routine 1330 (Given - Provider: Tish Miller, TANIKA)1424 (Given - Provider: Elana Arriaza RN) ceFAZolin (ANCEF) 1g in dextrose 5% 50mL (COMPLETED) 1,000 mg (1 g), Intravenous, EVERY 8 HOURS, 3 doses, First dose on Tue02/19/13 at 1700, Last dose on Tue02/20/13 at 0900, Administer over 30 Minutes, Indication for (Active or Suspected): Prophylaxis 0122 (Given - Provider: Nita Parra RN)0832 (Given - Provider: Rachna Underwood RN) docusate sodium (COLACE) capsule 100 mg 100 mg, Oral, 2 TIMES DAILY, First dose on Tue02/19/13 at 2100, Until Discontinued, Routine 0829 (Given - Provider: Rachna Underwood RN)2100 (Given - Provider: Alida Morrison RN) 0900 (Given - Provider: Tish Miller, TANIKA)203 (Given - Provider: Luis Angel Gonzalez RN) 0838 (Given - Provider: Luana Crook, TANIKA) esomeprazole (NEXIUM) capsule 40 mg (CANCELED) 40 mg, Oral, DAILY, First dose on Tue02/19/13 at 1700, Until Discontinued, Routine 0829 (Given - Provider: Rachna Underwood RN) 0900 (Given - Provider: Tish Miller, TANIKA) 0838 (Given - Provider: Luana Crook, TANIKA) FLUoxetine (PROZAC) capsule 40 mg (CANCELED) 40 mg, Oral, DAILY, First dose on Tue02/20/13 at 0900, Until Discontinued, Routine 0829 (Given - Provider: Rachna Underwood RN) 0900 (Given - Provider: Tish Miller, TANIKA) 0838 (Given - Provider: Luana Crook, TANIKA) furosemide (LASIX) tablet 20 mg 20 mg, Oral, DAILY, First dose on Tue02/20/13 at 1300, Until Discontinued, Routine 1300 (Given - Provider: Elana Arriaza RN) 0900 (Given - Provider: Tish Miller, RN) 0838 (Given - Provider: Luana Crook, TANIKA) heparin (porcine) subcutaneous injection 5,000 Units (CANCELED) 5,000 Units, Subcutaneous, EVERY 12 HOURS SCHEDULED (2 times per day), First dose on Tue02/20/13 at 1300, Until Discontinued, Routine 1300 (Given - Provider: Elana Arriaza RN)2100 (Given - Provider: Alida Morrison RN) 0900 (Given - Provider: Tish Miller, TANIKA)2031 (Given - Provider: Luis Angel Gonzalez RN) 0838 (Given - Provider: Luana Crook, TANIKA) insulin aspart (novoLOG) PEN injection 2-8 Units (CANCELED) 2-8 Units, Subcutaneous, EVERY 4 HOURS SCHEDULED, First dose on Tue02/19/13 at 1745, Until Discontinued, CORRECTION BOLUS Moderate BG 140 - 160 Give 2 units BG 161 - 200 Give 4 units BG 201 - 240 Give 6 units BG greater than 240, give 8 units and recheck BG in 2 hours. If BG remains greater than 240, repeat 8 units (no more than three times) & call for new basal insulin orders. If less than 240 after two hours, give no insulin and resume prior schedule., Routine 0006 (Given - Provider: Nita Parra, TANIKA)0404 (Given - Provider: Nita Parra RN)0800 (Not Given - Provider: Rachna Underwood RN - Reason: Order parameters not met)1200 (Given - Provider: Elana Arriaza RN)1600 (Not Given - Provider: Elana rAriaza RN - Reason: Order parameters not met)2000 (Not Given - Provider: Alida Morrison RN - Reason: Order parameters not met) 0000 (Not Given - Provider: Alida Morrison RN - Reason: Order parameters not met)0400 (Not Given - Provider: Alida Morrison RN - Reason: Order parameters not met)0800 (Given - Provider: Tish Miller, TANIKA)1200 (Given - Provider: Tish Miller RN)1600 (Not Given - Provider: Tish Miller RN - Reason: Order parameters not met)2000 (Not Given - Provider: Luis Angel Gonzalez RN - Reason: Order parameters not met) 0011 (Not Given - Provider: Luis Angel Gonzalez RN - Reason: Order parameters not met)0405 (Not Given - Provider: Luis Angel Gonzalez RN - Reason: Order parameters not met)0800 (Not Given - Provider: Luana Crook, TANIKA - Reason: Order parameters not met) lidocaine (XYLOCAINE) 10 mg/mL (1 %) injection 10 mg (COMPLETED) 10 mg, Subcutaneous, ONCE, 1 dose, On Tue02/21/13 at 1100, Routine 0915 (Given by Other - Provider: Tish Miller RN - Comment: MD Barrera gave at bedside) sodium chloride 0.9 % flush 5 mL (CANCELED) 5 mL, Intravenous, EVERY 12 HOURS, First dose on Tue02/19/13 at 1500, Until Discontinued 0300 (Not Given - Provider: Nita Parra RN - Reason: See comment - Comment: IV fluids running)1455 (Given - Provider: Elana Arriaza RN) 0300 (Given - Provider: Alida Morrison RN)1500 (Given - Provider: Tish Miller, TANIKA) 0406 (Given - Provider: Luis Angel Gonzalez RN) spironolactone (ALDACTONE) tablet 100 mg 100 mg, Oral, DAILY, First dose on Tue02/21/13 at 1100, Until Discontinued, Routine 1100 (Given - Provider: Tish Miller, TANIKA) 0838 (Given - Provider: Luana Crook, TANIKA) traZODone (DESYREL) tablet 150 mg (CANCELED) 150 mg, Oral, NIGHTLY, First dose on Tue02/19/13 at 2100, Until Discontinued, Routine 2100 (Given - Provider: Alida Morrison RN) 2031 (Given - Provider: Luis Angel Gonzalez, TANIKA) Continuous Medication Order 02/20/2013 02/21/2013 02/22/2013 dextrose 5% and sodium chloride 0.45% infusion (CANCELED) 1,000 mL, at 100 mL/hr, Intravenous, CONTINUOUS, Starting on Tue02/19/13 at 1500, Until Tue02/20/13 at 0740 0122 (New Bag - Provider: Nita Parra, TANIKA) dextrose 5% and sodium chloride 0.45% infusion (CANCELED) 1,000 mL, at 10 mL/hr, Intravenous, CONTINUOUS, Starting on Tue02/20/13 at 0800, Until Tue02/22/13 at 1230 0800 (Canceled Entry - Provider: Elana Arriaza RN - Comment: Given by other in short stay)1157 (New Bag - Provider: Tish Miller RN) PRN Medication Order 02/20/2013 02/21/2013 02/22/2013 diphenhydrAMINE (BENADRYL) injection 25 mg (CANCELED) 25 mg, Intravenous, EVERY 30 MIN PRN, 2 doses, Starting on Tue02/19/13 at 1640, Until Tue02/22/13 at 1230, Itching, May repeat dose in 30 minutes if pruritis not relieved., Routine 1206 (Given - Provider: Tish Miller, TANIKA) HYDROmorphone (DILAUDID) tablet 2-4 mg 2-4 mg, Oral, EVERY 4 HOURS PRN, Starting on Tue02/21/13 at 0938, Until Tue02/22/13 at 1230, Pain, Routine 1008 (Given - Provider: Tish Miller, RN - Comment: 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
--- OUTSIDE RECORDS SUMMARY | 2023-09-06 01:42 | XMS_ITS | Encounter Summary ---
Author Organization [facility] [place] [address] Care Team Providers Care Wood Treating Inspector Name Role Phone Bernadette Childs MD Primary Care Provider [phone] Encounter Details Date Type Department Care Team (Latest Contact Info) Description 02/19/2013 4:33 PM EST - 02/22/2013 10:28 AM EST Hospital Encounter [address] [place] [address] Ashley Torrez MD [facility] [place] [address] Restless legs syndrome (RLS) (Primary Dx); Ascites Discharge Disposition: Home Social History Tobacco Use [...] Sign Reading Time Taken Comments Blood Pressure 104/69 02/22/2013 8:02 AM EST Pulse 92 02/22/2013 8:02 AM EST Temperature 36.8 ??C (98.2 ??F) 02/22/2013 8:02 AM ES T Respiratory Rate 16 02/22/2013 8:02 AM EST Oxygen Saturation 95% 02/22/2013 8:02 AM EST Inhaled Oxygen Concentration - - Weight 95.5 kg (210 lb 9.6 oz) 02/21/2013 6:37 A M EST Height 158 cm (5' 2.21) 02/20/2013 11:50 AM EST Body Mass Index 38.27 02/20/2013 11:50 AM EST documented in this encounter Discharge Instructions * Patient Instructions* Nikos Rand MD - 02/22/2013 7:03 AM EST [...] AND HOLIDAYS: ASK FOR THE SURGERY RESIDENT OUTSIDE B2B SALES IF ANY OF THE ABOVE OCCUR. Activity [...] * CHOLECYSTECTOMY: WHAT TO EXPECT AT HOME (KAZAKH) * PERCUTANEOUS LIVER BIOPSY: WHAT TO EXPECT AT HOME (KAZAKH) documented in this encounter Medications at Time [...] Rand MD - 02/22/2013 9:01 AM EST [facility] Department [place] [address] To whom it may concern: Herlinda Beltre was recently hospitalized at [facility] for treatment. She will be fit and [...] 1:22 PM EST Care Management/ CRC Pager# [phone]/ Assessment S: I only slept in 20 minute naps last night. I'll try to get some rest later. O: Met with patient and patient's Jace this morning. Notes reviewed. Patient and reside in [facility]. Patient has [employer] O insurance. Patient has Advance Directives on file here at [facility]. Patient is POD# 1 laparoscopic cholecystectomy, liver biopsy. At this time patient is on Carb control level 2 diet po. Novolog SQ q4hr correction. Albumin IV as ordered. 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 Oxycodone po q4hr prn. SUBHASH drain x1 to bulb suction (output of 570ml). Blum catheter D/C this morning. Lasix 20mg po qday. Nexium po qday. Prozac po qday. Ativan po qhs prn. Patient OOB with assistance. 94% on 2liters oxygen via senior staff psychologist. Albuterol inhaler q4hr prn. A: Patient progressing post-op. Supportive here with patient. P: I will continue in CRC role, following patient's in-hospital course. I am available to assist should discharge needs arise. * Artur Barrera - 02/20/2013 10:33 AM EST Transplant surgery [...] to AI process, though unclear dx. - date night caregiver, start po pain meds - adat - [...] SUBHASH draining approximately 60 ml/h serosanguinous fluid. paged. Will continue to monitor. * Rachna Underwood RN - 02/19/2013 4:48 PM EST Pt arrived to floor via bed from PACU. Pt states pain is controlled with WAFER POLISHING WORKER dilaudid. No c/o nausea at this time. [...] 02/23/2013 10:50 AM EST * Miscellaneous - Provider, Scanning - 02/23/2013 10:50 AM EST * Discharge [...] AND HOLIDAYS: ASK FOR THE SURGERY RESIDENT OUTSIDE B2B SALES IF ANY OF THE ABOVE OCCUR. Activity [...] schedule. General Instructions None Provider Contact Information: [phone] Signed: NIKOS RAND MD 02/22/2013 * Plan [...] abdominal pain 5-7/10 and states it's tolerable. Product Engineering Manager available to pt, pt encouraged to use [...] Torrez MD - 02/19/2013 5:27 PM EST [facility] Operative Note Patient Name: Herlinda Beltre : [id number] MR#: [id number] Case Date: 02/19/2013 Surgeon: Surgeon(s) and Role: [...] Operative Note Patient Name: Herlinda Beltre : [id number] MR#: [id number] Case Date: 02/19/2013 Surgeon: Surgeon(s) and Role: [...] 11:00 AM EDT Office Visit Endocrinology at [facility] [place] [address] Mague Johnson MD [facility] DR ENDOCRINOLOG[place] [address] documented as of this encounter Procedures Procedure [...] TO PATHOLOGY Routine 02/19/2013 1:21 PM EST NON-JUNIOR SYSTEMS ADMINISTRATOR FINAL REPORT Routine 02/19/2013 12:32 PM EST [...] intervals supplied above were not validated at [facility]. Results from pediatric patients should be interpreted [...] Torrez MD CHEMISTRY ORDERABLES Performing Organization Address [facility] de Phone Number KARO PENAIUM * (ABNORMAL) CBC (with Diff) (02/22/2013 5:25 [...] MD HEMATOLOGY ORDERABLE S Performing Organization Address [facility] de Phone Number [facility] * POCT Glucose (02/22/2013 4:01 AM EST) POC Glucose 127 60 - 199 mg/dL [facility] Comment: Supplemental ranges: <110 mg/dL before meals <200 mg/dL all other times of the day Blood specimen (specimen) 02/22/2013 4:01 AM EST 02/22/2013 4:01 AM EST Ashley Torrez MD POINT OF CARE TEST O RDKELLIE Performing Organization Address [facility] de Phone Number [facility] * POCT Glucose (02/21/2013 11:50 PM EST) POC Glucose 127 60 - 199 mg/dL [facility] Comment: Supplemental ranges: <110 mg/dL before meals <200 mg/dL all other times of the day Blood specimen (specimen) 02/21/2013 11:50 PM EST 02/21/2013 11:50 PM EST Ashley Torrez MD POINT OF CARE TEST O RED Performing Organization Address [facility] de Phone Number [facility] * POCT Glucose (02/21/2013 7:35 PM EST) POC Glucose 131 60 - 199 mg/dL [facility] Comment: Supplemental ranges: <110 mg/dL before meals <200 mg/dL all other times of the day Blood specimen (specimen) 02/21/2013 7:35 PM EST 02/21/2013 7:35 PM EST Ashley Torrez MD POINT OF CARE TEST O RDERAAMBER Performing Organization Address [facility] de Phone Number [facility] * POCT Glucose (02/21/2013 3:53 PM EST) POC Glucose 110 60 - 199 mg/dL [facility] Comment: Supplemental ranges: <110 mg/dL before meals <200 mg/dL all other times of the day Blood specimen (specimen) 02/21/2013 3:53 PM EST 02/21/2013 3:53 PM EST Ashley Torrez MD POINT OF CARE TEST O RDERAAMBER Performing Organization Address [facility] de Phone Number KARO PENAIUM * POCT Glucose (02/21/2013 12:01 PM EST) POC Glucose 157 60 - 199 mg/dL [facility] Comment: Supplemental ranges: <110 mg/dL before meals <200 mg/dL all other times of the day Blood specimen (specimen) 02/21/2013 12:01 PM EST 02/21/2013 12:01 PM EST Ashley Torrez MD POINT OF CARE TEST O FRANERAAMBER Performing Organization Address [facility] Phone Number KARO PENAIUM * POCT Glucose (02/21/2013 7:23 AM EST) POC Glucose 150 60 - 199 mg/dL [facility] Comment: Supplemental ranges: <110 mg/dL before meals <200 mg/dL all other times of the day Blood specimen (specimen) 02/21/2013 7:23 AM EST 02/21/2013 7:23 AM EST Ashley Torrez MD POINT OF CARE TEST O RDERAAMBER Performing Organization Address [facility] de Phone Number KARO PENAIUM * (ABNORMAL) Differential, Automated (02/21/2013 5:44 AM [...] EST Ashley Torrez MD HEMATOLOGY ORDERABLE S [facility] * (ABNORMAL) Basic Metabolic Panel (non-fasting) (02/21/2013 5:44 AM EST) Glucose Lvl 147 60 - 199 mg/dL CERNER MILLENNIUM Comment:Diabetes: >=200 mg/d L plus symptoms BUN 12 8 - 18 mg/dL CERNER MILLENNIUM Creatinine 1.05 0.70 - 1.20 mg/dL [facility]ERNER MILLENNIUM Comment: Please note that the pediatric reference intervals supplied above were not validated at [facility]. Results from pediatric patients should be interpreted [...] In Lab Ashley Torrez MD CHEMISTRY ORDERABLES [facility] * (ABNORMAL) CBC (with Diff) (02/21/2013 5:44 [...] MILLENNIUM Platelets 292 145 - 370 x10(3)/mcL CERNER MILLENNIUM RDWSD 47.7(H) 35.0 - 46.0 fL CERMAYA RAMIREZENNIUM RDWCV 17.2(H) 10.9 - 14.4 % CERMAYA RAMIREZENNIUM MPV 10.3 9.0 - 12.0 fL [facility] JAMES[facility] Blood specimen (specimen) 02/21/2013 5:44 AM EST 02/21/2013 5:54 AM EST Narrative Resulting Agency Comment Spec In Lab Ashley Torrez MD HEMATOLOGY ORDERABLE S Performing Organization Address [facility] Co de Phone Number [facility] * POCT Glucose (02/21/2013 5:08 AM EST) POC Glucose 134 60 - 199 mg/dL [facility] Comment: Supplemental ranges: <110 mg/dL before meals <200 mg/dL all other times of the day Blood specimen (specimen) 02/21/2013 5:08 AM EST 02/21/2013 5:08 AM EST Ashley Torrez MD POINT OF CARE TEST O RED Performing Organization Address [facility] de Phone Number [facility] * POCT Glucose (02/20/2013 11:50 PM EST) POC Glucose 125 60 - 199 mg/dL [facility] Comment: Supplemental ranges: <110 mg/dL before meals <200 mg/dL all other times of the day Blood specimen (specimen) 02/20/2013 11:50 PM EST 02/20/2013 11:50 PM EST Ashley Torrez MD POINT OF CARE TEST O RDERAAMBER Performing Organization Address [facility] Co de Phone Number [facility] * POCT Glucose (02/20/2013 8:16 PM EST) POC Glucose 125 60 - 199 mg/dL [facility] Comment: Supplemental ranges: <110 mg/dL before meals <200 mg/dL all other times of the day Blood specimen (specimen) 02/20/2013 8:16 PM EST 02/20/2013 8:16 PM EST Ashley Torrez MD POINT OF CARE TEST O RDERAAMBER Performing Organization Address [facility] Phone Number [facility] * POCT Glucose (02/20/2013 4:38 PM EST) POC Glucose 123 60 - 199 mg/dL [facility] Comment: Supplemental ranges: <110 mg/dL before meals <200 mg/dL all other times of the day Blood specimen (specimen) 02/20/2013 4:38 PM EST 02/20/2013 4:38 PM EST Ahsley Torrez MD POINT OF CARE TEST O FRANERAAMBER Performing Organization Address [facility] Phone Number [facility] * POCT Glucose (02/20/2013 11:53 AM EST) POC Glucose 142 60 - 199 mg/dL [facility] Comment: Supplemental ranges: <110 mg/dL before meals <200 mg/dL all other times of the day Blood specimen (specimen) 02/20/2013 11:53 AM EST 02/20/2013 11:53 AM EST Ashley Torrez MD POINT OF CARE TEST O FRANERAAMBER Performing Organization Address [facility] Phone Number [facility] * POCT Glucose (02/20/2013 7:28 AM EST) POC Glucose 135 60 - 199 mg/dL [facility] Comment: Supplemental ranges: <110 mg/dL before meals <200 mg/dL all other times of the day Blood specimen (specimen) 02/20/2013 7:28 AM EST 02/20/2013 7:28 AM EST Ashley Torrez MD POINT OF CARE TEST O RDERABLES KARO RAMIREZENNIUM * (ABNORMAL) Differential, Automated (02/20/2013 4:14 AM EST) Pathologist [facility] Neutrophils % 84.5(H) 34.0 - 71.0 % [...] Hepatic Function Panel (02/20/2013 4:14 AM EST) Pathologist [facility] Total Protein 7.0 6.4 - 8.3 gm/dL [facility] MILLENNIUM Albumin 4.1 3.2 - 5.2 gm/dL CERNER MILLENNIUM AST 63(H) 0 - 30 unit/L CERNER MILLENNIUM ALT 31(H) 0 - 30 unit/L CERNER MILLENNIUM Alk Phos 256(H) 40 - 104 unit/L [facility] MILLENNIUM Total Bilirubin 0.8 0.2 - 1.3 mg/dL CERNER MILLENNIUM Bili, Direct 0.3 0.0 - 0.3 mg/dL [facility] Blood specimen (specimen) 02/20/2013 4:14 AM EST 02/20/2013 4:21 AM EST Narrative Resulting Agency Comment Spec In Lab Ashley Torrez MD CHEMISTRY ORDERABLES Performing Organization Address [facility] Phone Number [facility] * Phosphorus (02/20/2013 4:14 AM EST) Pathologist [facility] Phosphorus 4.3 2.5 - 4.5 mg/dL [facility] Blood specimen (specimen) 02/20/2013 4:14 AM EST 02/20/2013 4:21 AM EST Narrative Resulting Agency Comment Spec In Lab Ashley Torrez MD CHEMISTRY ORDERABLES Performing Organization Address [facility] Phone Number [facility] * Magnesium (02/20/2013 4:14 AM EST) Pathologist [facility] Magnesium 0.72 0.69 - 1.07 mmol/L [facility] Blood specimen (specimen) 02/20/2013 4:14 AM EST 02/20/2013 4:21 AM EST Narrative Resulting Agency Comment Spec In Lab Ashley Torrez MD CHEMISTRY ORDERABLES Performing Organization Address [facility] Phone Number [facility] * (ABNORMAL) Creatinine (02/20/2013 4:14 AM EST) Pathologist [facility] Creatinine 1.01 0.70 - 1.20 mg/dL CERNER MILLENNIUM Comment: Please note that the pediatric reference intervals supplied above were not validated at [facility]. Results from pediatric patients should be interpreted [...] Torrez MD CHEMISTRY ORDERABLES Performing Organization Address [facility] de Phone Number [facility] * BUN (02/20/2013 4:14 AM EST) BUN 9 8 - 18 mg/dL CERNER MILLENNIUM Blood specimen (specimen) 02/20/2013 4:14 AM EST 02/20/2013 4:21 AM EST Narrative Resulting Agency Comment Spec In Lab Ashley Torrez MD CHEMISTRY ORDERABLES Performing Organization Address [facility] de Phone Number [facility] PENAIUM * (ABNORMAL) Electrolytes panel (02/20/2013 4:14 AM [...] Lab Ashley Torrez MD CHEMISTRY ORDERABLES K[facility] PENAIUM * (ABNORMAL) CBC (with Diff) [...] MD HEMATOLOGY ORDERABLE S Performing Organization Address City/[facility]/ZIP Co de Phone Number KARO PENAIUM * POCT Glucose (02/20/2013 4:02 AM EST) POC Glucose 153 60 - 199 mg/dL CERNER MILLENNIUM Comment: Supplemental ranges: <110 mg/dL before meals <200 mg/dL all other times of the day Blood specimen (specimen) 02/20/2013 4:02 AM EST 02/20/2013 4:02 AM EST Ashley Torrez MD POINT OF CARE TEST O RED Performing Organization Address [facility] Phone Number [facility] * POCT Glucose (02/20/2013 12:03 AM EST) POC Glucose 157 60 - 199 mg/dL [facility] Comment: Supplemental ranges: <110 mg/dL before meals <200 mg/dL all other times of the day Blood specimen (specimen) 02/20/2013 12:03 AM EST 02/20/2013 12:03 AM EST Ashley Torrez MD POINT OF CARE TEST O RED Performing Organization Address [facility] Phone Number [facility] * POCT Glucose (02/19/2013 7:59 PM EST) POC Glucose 166 60 - 199 mg/dL [facility] Comment: Supplemental ranges: <110 mg/dL before meals <200 mg/dL all other times of the day Blood specimen (specimen) 02/19/2013 7:59 PM EST 02/19/2013 7:59 PM EST Ashley Torrez MD POINT OF CARE TEST O RED Performing Organization Address [facility] de Phone Number [facility] * POCT Glucose (02/19/2013 5:43 PM EST) POC Glucose 164 60 - 199 mg/dL [facility] Comment: Supplemental ranges: <110 mg/dL before meals <200 mg/dL all other times of the day Blood specimen (specimen) 02/19/2013 5:43 PM EST 02/19/2013 5:43 PM EST Ashley Torrez MD POINT OF CARE TEST O RDERABLES Performing Organization Address [facility] Co de Phone Number [facility] * Blue Tube HOLD (02/19/2013 3:15 PM EST) Blue Hold Sample in lab. [facility] Blood specimen (specimen) 02/19/2013 3:15 PM EST 02/19/2013 3:38 PM EST Ashley Torrez MD HEMATOLOGY ORDERABLE S Performing Organization Address [facility] de Phone Number [facility] * APTT (02/19/2013 3:15 PM EST) PTT 30 25 - 35 sec [facility] Comment: Recommended therapeutic PTT range for full dose unfractionated heparin is 80-114 seconds. Blood specimen (specimen) 02/19/2013 3:15 PM EST 02/19/2013 3:40 PM EST Narrative Resulting Agency Comment Spec In Lab Ashley Torrez MD HEMATOLOGY ORDERABLE S Performing Organization Address [facility] de Phone Number [facility] * (ABNORMAL) Prothrombin Time (02/19/2013 3:15 PM EST) PT 15.7(H) 12.0 - 15.0 sec [facility] Comment: [facility] Transfusion Committee Guidelines: INR less than 2.0, PTT less than OR equal to 43.5 seconds, or Fibrinogen greater than or equal to 100 mg/dl indicate adequate procoagulant activity for hemostasis in patients without underlying bleeding disorders. INR 1.2(H) 0.9 - 1.1 [facility] Blood specimen (specimen) 02/19/2013 3:15 PM EST 02/19/2013 3:40 PM EST Narrative Resulting Agency Comment Spec In Lab Ashley Torrez MD HEMATOLOGY ORDERABLE S Performing Organization Address [facility] Co de Phone Number [facility] * POCT Glucose (02/19/2013 2:46 PM EST) POC Glucose 129 60 - 199 mg/dL CERNER MILLENNIUM Comment: Supplemental ranges: <110 mg/dL before meals <200 mg/dL all other times of the day Blood specimen (specimen) 02/19/2013 2:46 PM EST 02/19/2013 2:46 PM EST Ashley Torrez MD POINT OF CARE TEST O RDERABLES CERNER MILLENNIUM * (ABNORMAL) Differential, Automated (02/19/2013 2:40 PM EST) Neutrophils % 87.9(H) 34.0 - 71.0 % [...] CERNER MILLENNIUM * (ABNORMAL) CBC (with Diff) (02/19/2013 2:40 [...] Lab Ashley Torrez MD HEMATOLOGY ORDERABLE S CERMAYA PENAIUM * Surgical Pathology Report (02/19/2013 2:17 PM EST) Surgical Pathology Report ? [facility] ? Provider: ?? ASHLEY TORREZ ?Pt. Name: ?? HERLINDA BELTRE ? Acc #: ?[id number] ?Pt. ? Col Date: ?? 02/19/2013 ?/Sex: [...] ?B1 ? Iron ? See Note. ? [facility] ? Provider: ?? ASHLEY TORREZ ?Pt. Name: ?? HERLINDA BELTRE ? Acc #: ?[id number] ?Pt. ? Col Date: ?? 02/19/2013 ?/Sex: [...] Lymph Node: Not included. ? Sections/Processi ng: Psychiatric Secretary sections are submitted in cassette A1. ? [...] LFTs, ascites ? Clinical Diagnosis: ? Same [facility] 02/19/2013 2:17 PM EST Ashley Torrez MD PATHOLOGY/CYTOLOGY O RDERABLES [facility] * Anaerobic Culture (02/19/2013 1:36 PM EST) Anaerobic Culture ? Patient Name: HERLINDA BELTRE ? Ordered By: ASHLEY TORREZ ? MR#: [id number] ?LOC: ??4WST ? /Sex: ??1965 (47 years), ? Female ? PROCEDURE: Anaerobic Culture ?SOURCE: Ascites Fl ? COLLECTED: 02/19/2013 13:36 ? STARTED: 02/19/2013 14:28 ? FINAL REPORT ? Final Report ? Verified:2013 13:14 ? No anaerobic organisms isolated ? PRELIMINARY REPORT ? Preliminary Report ? Verified:2012 13:54 ? No anaerobic organisms isolated to date ? KARO MILLENNIUM Peritoneal fluid specimen (specimen) 02/19/2013 1:36 PM EST 02/19/2013 2:27 PM EST Narrative Resulting Agency Comment Spec In Lab Ashley Torrez MD MICROBIOLOGY - GENER AL ORDERABLES [facility] * Body fluid culture (02/19/2013 1:36 PM EST) Body Fluid Culture ? Patient Name: HERLINDA BELTRE ? Ordered By: ASHLEY TORREZ ? MR#: [id number] ?LOC: ??4WST ? /Sex: ??1965 (47 years), [...] 07:59 ? No growth to date. ? [facility] BECKY[facility] Peritoneal fluid specimen (specimen) 02/19/2013 1:36 PM EST 02/19/2013 2:27 PM EST Narrative Resulting Agency Comment Spec In Lab Ashley Torrez MD MICROBIOLOGY - GENER AL ORDERABLES Performing Organization Address [facility] de Phone Number KARO RUBIN * Specimen to Pathology (surgical or derm) (02/19/2013 1:26 PM EST) AP Specimen 02/19/2013 1:26 PM EST 02/19/2013 1:26 PM EST Narrative CERNER MILLENNIUM - 02/19/2013 1:26 PM EST Specimen requisition ordered. ??Separate Pathology report to follow Ashley Torrez MD PATHOLOGY/CYTOLOGY O RDERABLES Performing Organization Address [facility] Co de Phone Number [facility] * Specimen to Pathology (surgical or derm) (02/19/2013 1:21 PM EST) AP Specimen 02/19/2013 1:21 PM EST 02/19/2013 1:21 PM EST Narrative CERNER MILLENNIUM - 02/19/2013 1:21 PM EST Specimen requisition ordered. ??Separate Pathology report to follow Ashley Torrez MD PATHOLOGY/CYTOLOGY [place] KARO RUBIN * Non-Rn New Graduate Final Report (02/19/2013 12:32 PM EST) Non-Rn New Graduate Final Report ? [facility] ? Provider: ?? ASHLEY TORREZ ?Pt. Name: ?? HERLINDA BELTRE ? Acc #: ?[id number] ?Pt. ? Col Date: ?? 02/19/2013 ?/Sex: [...] Based Prep 1; Cell Block 1. KARO RUBIN 02/19/2013 12:3 2 PM EST Ashley Torrez MD PATHOLOGY/CYTOLOGY O RDERABLES Performing Organization Address [facility] de Phone Number KARO RUBIN * Albumin Level Body Fluid (02/19/2013 12:32 PM EST) Albumin, BF 2.7 gm/dL [facility] [employer] SystemsIUM Comment: In the evaluation of ascites, a [...] clinical status. Albumin BF Type Ascites fluid CERMAYA [facility] DiagnosticsLEXIIUM Peritoneal fluid specimen (specimen) 02/19/2013 12:32 PM EST 02/19/2013 2:22 PM EST Narrative Resulting Agency Comment Spec In Lab Ashley Torrez MD BODY FLUIDS AND STOO LS ORDERABLES Performing Organization Address [facility] de Phone Number [facility]ARO PENACuriosity[place] * Amylase Level Body Fluid (02/19/2013 12:32 PM EST) Amylase, BF 10 unit/L [facility] Comment: No reference range is available for [...] AND STOO LS ORDERABLES Performing Organization Address [facility] Phone Number [facility] * Bilirubin Body Fluid (02/19/2013 12:32 PM EST) Bilirubin BF 0.5 mg/dL [facility] Comment: No reference range is available for the specimen type submitted. ??The performance of this assay for the submitted type has not been validated and results should be interpreted accordingly and with regard to the patient's clinical status. Bili BF Type Ascites fluid [facility] Peritoneal fluid specimen (specimen) 02/19/2013 12:32 PM EST 02/19/2013 2:22 PM EST Narrative Resulting Agency Comment Spec In Lab Ashley Torrez MD BODY FLUIDS AND STOO LS ORDERABLES Performing Organization Address [facility] de Phone Number [facility] * Cytopathology Non-Gynecological (02/19/2013 12:32 PM EST) AP Specimen 02/19/2013 12:3 2 PM EST 02/19/2013 12:32 PM EST Narrative [facility] - 02/19/2013 12:32 PM EST Specimen requisition ordered. ??Separate Pathology report to follow Ashley Torrez MD PATHOLOGY/CYTOLOGY O RDERABLES Performing Organization Address [facility] Co de Phone Number [facility] * POCT Glucose (02/19/2013 9:18 AM EST) POC Glucose 132 60 - 199 mg/dL [facility] Comment: Supplemental ranges: <110 mg/dL before meals <200 mg/dL all other times of the day Blood specimen (specimen) 02/19/2013 9:18 AM EST 02/19/2013 9:18 AM EST Ashley Torrez MD POINT OF CARE TEST O RDERABLES [facility] documented in this encounter Visit Diagnoses Diagnosis Abdominal pain, RUQ (right upper quadrant)- Primary Abdominal pain, right upper quadrant Restless legs syndrome (RLS) Ascites Other ascites Ascites Other ascites documented in this encounter Administered Medications Inactive Administered Medications - up to 3 most recent administrations Medication Order MAR Action Action Date Dose Rate Site albumin, human 5% 250 mL bottle Intravenous, at 500 mL/hr, ONCE, 1 dose, On Tue02/20/13 at 1215, 500 mL bolus., Routine Given 02/20/2013 2:24 PM EST 500 mL/hr Given 02/20/2013 1:30 PM EST 500 mL/hr ceFAZolin (ANCEF) 1g in dextrose 5% 50mL [...] EST 5,000 Units HYDROmorphone (DILAUDID) 1 mg/mL [employer] 30 mL Intravenous, [employer] ONLY, Starting on Tue02/19/13 at 1500, Until [...] Routine 1330 (Given - Provider: Tish Miller, RN)1424 (Given - Provider: Elana Arriaza RN) ceFAZolin (ANCEF) 1g in dextrose 5% 50mL (COMPLETED) 1,000 mg (1 g), Intravenous, EVERY 8 HOURS, 3 doses, First dose on Tue02/19/13 at 1700, Last dose on Tue02/20/13 at 0900, Administer over 30 Minutes, Indication for (Active or Suspected): Prophylaxis 0122 (Given - Provider: Nita Parra RN)0832 (Given - Provider: Rachna Underwood, TANIKA) docusate sodium (COLACE) capsule 100 mg 100 [...] Discontinued, Routine 1300 (Given - Provider: Elana Arriaza, RN) 0900 (Given - Provider: Tish Miller, RN) 0838 (Given - Provider: Luana Crook, TANIKA) heparin (porcine) subcutaneous injection 5,000 Units (CANCELED) 5,000 Units, Subcutaneous, EVERY 12 HOURS SCHEDULED (2 times per day), First dose on Tue02/20/13 at 1300, Until Discontinued, Routine 1300 (Given - Provider: Elana Arriaza RN)2100 (Given - Provider: Alida Morrison RN) 0900 (Given - Provider: Tish Miller, RN)2031 (Given - Provider: Luis Angel Gonzalez RN) [...] schedule., Routine 0006 (Given - Provider: Nita Parra RN)0404 (Given - Provider: Nita Parra RN)0800 (Not Given - Provider: Rachna Underwood RN - Reason: Order parameters not met)1200 (Given - Provider: Elana Arriaza RN)1600 (Not Given - Provider: Elana Arriaza RN - Reason: Order parameters not met)2000 (Not Given - Provider: Alida Morrison RN - Reason: Order parameters not met) 0000 (Not Given - Provider: Alida Morrison RN - Reason: Order parameters not met)0400 (Not Given - Provider: Alida Morrison RN - Reason: Order parameters not met)0800 (Given - Provider: Tish Miller, TANIKA)1200 (Given - Provider: Tish Miller, TANIKA)1600 (Not Given - Provider: Tish Miller RN - Reason: Order parameters not met)2000 (Not Given - Provider: Luis Angel Gonzalez, RN - Reason: Order parameters not met) 0011 (Not Given - Provider: Luis Angel Gonzalez RN - Reason: Order parameters not met)0405 (Not Given - Provider: Luis Angel Gonzalez RN - Reason: Order parameters not met)0800 (Not Given - Provider: Luana Crook RN - Reason: Order parameters not met) lidocaine [...] Arriaza RN) 0300 (Given - Provider: Alida Morrison, TANIKA)1500 (Given - Provider: Tish Miller, TANIKA) 0406 (Given - Provider: Luis Angel Gonzalez, TANIKA) spironolactone (ALDACTONE) tablet 100 mg 100 mg, Oral, DAILY, First dose on Tue02/21/13 at 1100, Until Discontinued, Routine 1100 (Given - Provider: Tish Miller RN) 0838 (Given - Provider: Luana Crook, [...] CONTINUOUS, Starting on Tue02/20/13 at 0800, Until Alyson 02/22/13 at 1230 0800 (Canceled Entry - Provider: Elana Arriaza, RN - Comment: Given by other in short stay)1157 (New Bag - Provider: Tish Miller, TANIKA) PRN Medication Order 02/20/2013 02/21/2013 02/22/2013 diphenhydrAMINE (BENADRYL) injection 25 mg (CANCELED) 25 mg, Intravenous, EVERY 30 MIN PRN, 2 doses, Starting on Tue02/19/13 at 1640, Until Alyson 02/22/13 at 1230, Itching, May repeat dose in 30 minutes if pruritis not relieved., Routine 1206 (Given - Provider: Tish Miller, TANIKA) HYDROmorphone (DILAUDID) tablet 2-4 mg 2-4 mg, Oral, EVERY 4 HOURS PRN, Starting on Tue02/21/13 at 0938, Until Alyson 02/22/13 at 1230, Pain, Routine 1008 (Given - Provider: Tish Miller, TANIKA - Comment: prior to d/c date night caregiver)1505 (Given - Provider: Tish Miller, TANIKA)1930 (Given - Provider: Tish Miller, TANIKA) 0825 (Given - Provider: Luana Crook RN) documented in this encounter Care Teams Wood Treating Inspector Relationship Specialty Start Date End Date Bernadette Childs MD [address] [place] [address] PCP - General 04/03/12 07/27/20 documented as of this encounter
--- OUTSIDE RECORDS SUMMARY | 2023-09-06 01:42 | XMS_ITS | Encounter Summary ---
Author Organization [facility] Address [address] [place] [address] Care Team Providers Care Automation Tender Name Role Phone Unknown, Provider Primary Care Provider [phone] Encounter Details Date Type Department Care Team (Late st Contact Info) Description 11/11/2022 Lab Requisition [facility] [address] [place] [address] Ajit Batista MD [address] [place] [address] Chronic passive congestion of liver; Angiodysplasia of stomach and duodenum without bleeding; Benign neoplasm of colon, unspecified Social History Tobacco Use Types Packs/Day Years Used Date Smoking Tobacco: Never Assessed Interpersonal Safety Answer Date Record ed Physically Hurt Never 01/15/2020 Verbally Threaten Not on file 01/15/2020 Sex and Gender Information Value Date Recorded Sex Assigned at Not on file Gender Identity Not on file Sexual Orientation Not on file documented as of this encounter Plan of Treatment Not on file documented as of this encounter Procedures Procedure Name Priority Date/Time Associated Diagnosis Comments SURGICAL PATHOLOGY Today 11/10/2022 7:28 EDT documented in this encounter Results * SURGICAL PATHOLOGY (11/10/2022 7:28 EDT) Note to Patient The following pathology results have been interpreted by your pathologist and may be available to you before your health provider has had the opportunity to review them. Please allow time for your provider to receive these results and explore management options, if applicable. 11/12/2022 16:32 EDT [facility] Final Diagnosis A. DUODENUM, BIOPSY: - Minute fragments of duodenal mucosa with no definitive pathologic change. - No evidence of gluten-sensitiv e enteropathy (celiac sprue). B. DUODENUM, BULB, BIOPSY: - Duodenal mucosa with no significant pathologic change. C. STOMACH, ANTRUM, BIOPSY: - Antral-type gastric mucosa with changes consistent with a reactive (chemical) gastropathy. - No intestinal metaplasia or dysplasia. - No evidence of Helicobacter pylori on routine H&E stain. D. STOMACH, BODY, BIOPSY: - Oxyntic-type mucosa with no significant pathologic change. - No intestinal metaplasia or dysplasia. - No evidence of Helicobacter pylori on routine H&E stain. E. COLON, SPLENIC FLEXURE, POLYP, BIOPSY: - Tubular adenoma. 11/12/2022 16:32 [facility] Attestation By the signature below, the attending physician certifies that they have 1) personally conducted a gross and/or microscopic examination of the described specimen(s), and/or personally interpreted the results of laboratory testing of the described specimen(s), and 2) personally rendered or confirmed the above diagnosis. 11/12/2022 16:32 [facility] at 1632 Clinical History EGD, history of tubular adenoma, screening colonoscopy, history of liver cirrhosis, GERD, gave, gastric erythema. 11/12/2022 16:32 [facility] Gross Description A. The specimen is received in formalin labeled with ? Teresita Rouelle? and ? A? and ? duodenum? are 3 mucosal fragments that range in size from 0.1 x 0.1 x 0.1 cm up to 0.1 x 0.2 x 0.3 cm. The specimen is entirely submitted in 1 cassette. B. The specimen is received in formalin labeled with ? Teresita Rouelle? and ? B? and ? duodenal bulb? are 2 mucosal fragments that measure 0.1 x 0.1 x 0.1 cm and 0.1 x 0.2 x 0.3 cm. The specimen is entirely submitted in 1 cassette. C. The specimen is received in formalin labeled with ? Teresita Rouelle? and ? C? and ? gastric antrum? are 2 mucosal fragments that measure 0.1 x 0.1 x 0.1 cm and 0.1 x 0.1 x 0.4 cm. The specimen is entirely submitted in 1 cassette. D. The specimen is received in formalin labeled with ? Teresita Rouelle? and D? and ? gastric body? are 3 mucosal fragments that range in size from less than 0.1 x 0.1 x 0.1 cm up to 0.1 x 0.1 x 0.4 cm. The specimen is entirely submitted in 1 cassette. E. The specimen is received in formalin labeled with ? Teresita Rouelle? and ? E? and ? splenic flexure polyp? is a mucosal fragment that measures 0.2 x 0.2 x 0.4 cm. The specimen is entirely submitted in 1 cassette. STEF BERMEO 11/11/2022 11:58 11/12/2022 16:32 EDT [facility] Performing Lab [facility] 11/12/2022 16:32 EDT [facility] Scanned Images 11/12/2022 16:32 EDT [facility] Tissue POLYP OF SPLENIC FLEXURE OF COLON / Unknown 11/10/2022 7:28 EDT 11/11/2022 8:19 EDT Tissue specimen (specimen) DUODENAL AMPULLA STRUCTURE / Unknown 11/10/2022 7:28 EDT 11/11/2022 8:19 EDT Tissue specimen (specimen) PYLORIC ANTRUM STRUCTURE / Unknown 11/10/2022 7:28 EDT 11/11/2022 8:19 EDT Tissue specimen (specimen) GASTRIC CORPUS STRUCTURE / Unknown 11/10/2022 7:28 EDT 11/11/2022 8:19 EDT Tissue specimen (specimen) POLYP OF SPLENIC FLEXURE OF COLON / Unknown 11/10/2022 7:28 EDT 11/11/2022 8:19 EDT Ajit Batista MD PATHOLOGY ORD ERABLES [facility] [address] [place] [address] documented in this encounter Visit Diagnoses Diagnosis Chronic passive congestion of liver Angiodysplasia of stomach and duodenum without bleeding Angiodysplasia of stomach and duodenum (without mention of hemorrhage) Benign neoplasm of colon, unspecified documented in this encounter Care Teams Automation Tender Relationship Specialty Start Date End Date Unknown, Provider, PCP - General 10/22/22 documented as of this encounter
--- OUTSIDE RECORDS SUMMARY | 2023-09-06 01:42 | XMS_ITS | Encounter Summary ---
Author Organization [facility] Address [facility] [place] [address] Care Team Providers Care Satin Finisher Name Role Phone Bernadette Childs MD Primary Care Provider [phone] Reason for Visit * Reason Comments Restless Leg Syndrome Encounter Details Date Type Department Care Team (Late st Contact Info) Description 10/24/2012 10:15 AM EDT Follow-[place] [address] Oh Dumont MD [facility] R[place]AT[place] [address] Restless legs syndrome (RLS) (Primary Dx); Pericarditis; Bilateral leg edema; Iron deficiency Discharge Disposition: Home Social History Tobacco Use Types Packs/Day Years Used Date Smoking Tobacco: Former Sex and Gender Information Value Date Recorded Sex Assigned at Female 07/09/2020 7:39 PM EDT Gender Identity Female 07/09/2020 7:39 PM EDT Sexual Orientation Straight 08/27/2020 7: 10 PM EDT documented as of this encounter Last Filed Vital Signs Vital Sign Reading Time Taken Comments Blood Pressure 116/73 10/24/2012 10:13 AM EDT Pulse 85 10/24/2012 10:13 AM EDT Temperature 36.8 ??C (98.2 ??F) 10/24/2012 10:13 AM E DT Respiratory Rate - - Oxygen Saturation 98% 10/24/2012 10:13 AM EDT Inhaled Oxygen Concentration - - Weight 95.4 kg (210 lb 6.4 oz) 10/24/2012 10:13 AM EDT Height 157.5 cm (5' 2) 10/24/2012 10:13 AM EDT Body Mass Index 38.48 10/24/2012 10:13 AM EDT documented in this encounter Patient Instructions * Patient Instructions* Olinda Cabrera, JUDY - 10/24/2012 10:12 AM EDT Welcome to [employer], your secure online access to your electronic medical record at [facility]. Using [employer] you will be able to send messages to your providers, view your test results, renew prescriptions, schedule appointments, and much more. Follow these instructions to enter your personal [employer] account for the first time: 1. Start your internet browser and type [email or web address] into the address bar. 2. In the New User box on the right-hand side of the Welcome page click the link that states, ???I have an activation code.?? 3. On the Identification page, follow these steps: a) Enter your [employer] activation code: [email or web address] b) Expires: 12/08/2012 10:12 AM IMPORTANT: This Activation Code will on the above mentioned date. If you do not sign up for [employer] by this date, you will need to request another activation code. c) Enter your date of , using the calendar tool provided. d) Enter your Zip code. e) Select ???submit?? to go to the next page. 4. On the Create Account page, follow these steps: a) Create a [employer] username. This can???t be changed, so choose one you won???t forget. b) Create a password that???s at least six characters long, and that contains at least two numbers.Your password can be changed at any time. Confirm your password by entering it once more. c) Enter your email address. This will be used to alert you to new information. Confirm your email address by entering it once more. d) Enter your security question. This will be used if you forget your password. e) Enter your security answer. Confirm your security answer by entering it once more. f) Select ???submit?? to view your electronic medical record. If you have any questions about [employer] or your Access Code, please call for [place], for [place] or for [place]. If you need technical support, please e-mail [email or web address]. Remember, [employer] is NOT for urgent needs! Always dial 911 for medical emergencies. 1. Labs today to evaluate iron deficiency 2. Renew Lorazepam 1 mg at bedtime Take 1 Tablet 3. Compression stockings if labs okay 4. If iron deficiency unchanged, consider work up 5. Return 3-4 months documented in this encounter Progress Notes * Oh Dumont MD - 10/24/2012 10:33 AM EDT Ms Beltre is the sister of a patient of [facility] with RA (Spenser Fernández) and a positive family hx, seen in 6 month f/u at her request. When last seen in for polyarthralgias occurring in the context of low iron, restless legs and sleep disturbance and diabetes, my impression was that despite inflammatory hx suggested by the episode of pericarditis and mildly elevated CRP, there has been a great response of her various arthralgias, myalgias and lack of energy to lorazepam and iron. This supports the notion that this sleep disturbance sounds most like RLS, which is triggered by iron deficiency. Her ACPA was very low positive in . Interval Hx: Patient reports that she has been troubled by various issues 1. Nausea, PERALTA, ear aches, noted to have left sided otitis in September that cleared with some residualpain. In September she has lost 5 lbs. 2. No more pericardial symptoms, stopped colchicine 3-4 weeks ago 3. Sleeping better on lorazepam and trazodone. Tolerating the iron bid. Reduced pain. 4. Since stopped the colchicine, she is having more trouble with lower extremity swelling. Goes down in the am, returns with activity. Has been going on for 3 weeks. Review of Systems Constitutional: No fevers, chills, malaise. Skin: no rashes HEENT: no sicca sx, change in hearing, taste sinus pain, PERALTA, change in taste. Respiratory: no chest pain, shortness of breath CV: no FIGUEREDO, angina sx, claudication Back: No sciatica, pain with standing GI: no abd pain, normal bowel movements : no dysuria, normal voiding, no nocturia Neuro: no focal deficit HPI Patient was in her usual state of health until July 2011, when she developed left sided chest and back and UE pain that was diagnosed as pericarditis. Extensively worked up and was followed by Dr. Musa Lawrence at [facility]. She was treated with colchicine, hydrocodone with great improvement and is now intermittent. Subsequently she has been experiencing various pains in her back, neck, fatigue, exhaustion all since July. AM stiffness in back, hips, neck. Tired all the time. Has some ankle, foot pain, hands to a lesser degree, PERALTA, shortness of breath (since ). Hurts to bend over. Shoulders hurt, hands feel weak, but feel weak all over She reports that she has lost 30 lbs in the last 1.5 months. Not exercising. Unable to work due to pericarditis, recurrent fevers, infection Other Medical Problems: 1. Diabetes mellitus on metformin for 17 years 2. Polycystic Ovaries: 1 1996 with pre-eclampsia, toxemia 3. Sleep disturbance: On trazodone, sleeps does not waken rested. +snores. Restless in bed, also notes difficulty riding in car needs to move legs. 4. Anxiety on fluoxetine 5. Reports elevated alk phosphatase. 6. 7. GERD 8. Episode of buccal/palatal ulcers 11.12 treated with acyclovir, doxycycline Allergies: Amoxicillin, pencillin, sulfa, latex Review of Systems Constitutional: no fevers, chills, malaise. Skin: no rashes HEENT: ++ sicca sx, change in hearing, taste sinus pain, PERALTA, change in taste. + sores in mouth Respiratory: ++ chest/thoracic spine pain, shortness of breath CV: , claudication Back: No sciatica, pain with standing GI: ++ BLQ abd pain, normal bowel movements : no dysuria, normal voiding, no nocturia Neuro: no focal deficit no more paresthesias at night when asleep. 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 Stopped smoking 15 years, no alcohol. works at former [employer] and . [place] 15. Physical Exam: Blood pressure 116/73, pulse 85, temperature 36.8 ??C (98.2 ??F), temperature sourceOral, height 157.5 cm (5' 2), weight 95.437 kg (210 lb 6.4 oz), SpO2 98.00%. Obese, pleasant NAD. Lessening of trigger points, no joint swelling. HEENT normal. Neck supple, no JVD +HJR. Lungs clear.Cor no rub, S3. Abd: obese, benign. Ext: + 2+ tender edema to knees Joints; normal Assess: 1. Leg edema concurrent with stopping colchicine most c/w venous stasis disease 2. Restless legs with low ferritin 3. Hx of renal failure on NSAIDs Plan 1. Labs including ferritin and CBC and CMP to evaluate renal function (requested by pt) 2. TEDS stockings 3. Renewed lorazepam 1 mg at HS with gabapentin, will plan to wean off or add gabapentin at next visit 4. Reassure. Level 4 f/u Oh Dumont M.D. documented in this encounter Miscellaneous Notes * Addendum Note - Tamie Chamorro - 10/24/2012 11:16 AM EDTAddended by: TAMIE CHAMORRO on: 10/24/2012 11:16 AM Modules accepted: Orders documented in this encounter Plan of Treatment Upcoming Encounters Date Type Department Care Team (Late st Contact Info) Description 09/14/2023 11:00 AM EDT Office Visit [place] [address] Mague Johnson MD [facility] DR ENDOCRINOLOGY [place] [address] (work) documented as of this encounter Procedures Procedure Name Priority Date/Time Associated Diagnosis Comments DIFFERENTIAL, AUTOMATED Routine 10/24/2012 11:17 AM EDT CBC (WITH DIFF) Routine 10/24/2012 11:17 AM EDT Pericarditis CRP, CARDIAC RISK (HS CRP) Routine 10/24/2012 11:17 AM EDT Pericarditis FERRITIN Routine 10/24/2012 11:17 AM EDT Iron deficiency COMPREHENSIVE METABOLIC PANEL (NON-FASTING) Routine 10/24/2012 11:17 AM EDT Pericarditis Bilateral leg edema documented in this encounter Results * Differential, Automated (10/24/2012 11:17 AM EDT) Neutrophils % 65.7 34.0 - 71.0 % CERNER MILLENNIUM Neutr Abs (ANC) 4.83 1.50 - 6.30 x10(3)/mcL CERNER MILLENNIUM Lymphocytes % 23.5 19.0 - 53.0 % CERNER MILLENNIUM Lymphocytes Abs 1.7 1.0 - 3.6 x10(3)/mcL CERNER MILLENNIUM Monocytes % 8.3 4.0 - 13.0 % CERNER MILLENNIUM Monocyte Abs 0.6 0.2 - 1.0 x10(3)/mcL CERNER MILLENNIUM Eosinophils % 2.0 0.0 - 7.0 % CERNER MILLENNIUM Eosinophils [...] 0.05 x10(3)/mcL CERNER MILLENNIUM Blood specimen (specimen) 10/24/2012 11:17 AM EDT 10/24/2012 11:21 AM EDT Oh Dumont MD [facility]OLOG[facility] * (ABNORMAL) CBC (with Diff) (10/24/2012 11:17 AM EDT) WBC 7.4 4.0 - 10.0 x10(3)/mcL CERNER MILLENNIUM RBC 5.03 3.93 - 5.22 x10(6)/mcL CERNER MILLENNIUM Hemoglobin 12.2 11.2 - 15.7 gm/dL CERNER MILLENNIUM Hematocrit 38.0 34.0 - 45.0 % CERNER MILLENNIUM MCV 75.5(L) 79.0 - 94.0 fL CERNER MILLENNIUM MCH 24.3(L) 26.6 - 32.2 pg CERNER MILLENNIUM MCHC 32.1 32.0 - 36.5 gm/dL CERNER MILLENNIUM Platelets 254 145 - 370 x10(3)/mcL CERNER MILLENNIUM RDWSD 48.9(H) 35.0 - 46.0 fL CERNER MILLENNIUM RDWCV 17.9(H) 10.9 - 14.4 % CERNER MILLENNIUM MPV 10.6 9.0 - 12.0 fL CERNER MILLENNIUM Blood specimen (specimen) 10/24/2012 11:17 AM EDT 10/24/2012 11:21 AM EDT Narrative Resulting Agency Comment Spec In Lab Oh Dumont MD [facility]OLOG[facility] * High Sensitivity CRP (10/24/2012 11:17 AM EDT) CRP High Sens 13.4 mg/L CERNER MILLENNIUM Comment: Interpretations: 1) For accurate cardiac risk assessment, the average of 2 values >2 weeks apart should be obtained (ref 1&2). A value >10 mg/L indicates an inflammatory condition, concentrations >10 mg/L should not be used for cardiac risk assessment. ?<1.0 mg/L: low risk ?1.0 - 3.0 mg/L: moderate risk ?>3.0 mg/L: high risk groups for future cardiovascular events 2) The general reference range of apparently healthy individuals using this test is <5.0 mg/L (derived from the test package insert) References: 1. Selvin WRIGHT et. al. ??AHA/CDC Scientific Statement: Markers of Inflammation and Cardiovascular Disease. ??Circulation 2003; 107:499-511 2. Ed PM. ??Clinical applications of C-reactive protein for cardiovascular disease detection and prevention. ??Circulation 2003; 107:363-369 Blood specimen (specimen) 10/24/2012 11:17 AM EDT 10/24/2012 11:21 AM EDT Narrative Resulting Agency Comment Spec In Lab Oh Dumont MD CHEMISTRY ORDERABLES Performing Organization Address City/[facility] Co de Phone Number [facility] * Ferritin (10/24/2012 11:17 AM EDT) [facility] Ferritin 44 15 - 150 ng/mL [facility] Comment: Pediatric reference ranges not verified at [facility], interpret with caution. Reference ranges for females greater than 50 years of age approach values for men, i.e., 30-400 ng/mL. Blood specimen (specimen) 10/24/2012 11:17 AM EDT 10/24/2012 11:21 AM EDT Narrative Resulting Agency Comment Spec In Lab Oh Dumont MD CHEMISTRY ORDERABLES Performing Organization Address [facility] Co de Phone Number [facility] * (ABNORMAL) Comprehensive metabolic panel (non-fasting) (10/24/2012 11:17 AM EDT) [facility] Glucose Lvl 100 60 - 199 mg/dL [facility] Comment:Diabetes: >=200 mg/d L plus symptoms BUN 8 8 - 18 mg/dL CERNER MILLENNIUM Creatinine 0.88 0.70 - 1.20 mg/dL CERNER MILLENNIUM Comment: Please note that the pediatric reference intervals supplied above were not validated at [facility]. Results from pediatric patients should be interpreted in conjunction to the patient's age, height and muscle mass. Sodium 142 135 - 145 mmol/L CERNER MILLENNIUM Potassium 4.0 3.5 - 5.0 mmol/L CERNER MILLENNIUM Comment: [...] 9.5 8.5 - 10.5 mg/dL CERNER MILLENNIUM Total Protein 6.9 6.4 - 8.3 gm/dL CERNER MILLENNIUM Albumin 4.3 3.2 - 5.2 gm/dL CERNER MILLENNIUM AST 29 0 - 30 unit/L CERNER MILLENNIUM ALT 18 0 - 30 unit/L CERNER MILLENNIUM Alk Phos 257(H) 40 - 104 unit/L CERNER MILLENNIUM Total Bilirubin 0.7 0.2 - 1.3 mg/dL CERNER MILLENNIUM Bili, [...] internet browser. http://www.nkdep.nih.gov/lab-evaluation.shtml http://www.kidney.org/professionals/ Blood specimen (specimen) 10/24/2012 11:17 AM EDT 10/24/2012 11:21 AM EDT Narrative Resulting Agency Comment Spec In Lab Oh Dumont MD CHEMISTRY ORDERABLES [facility] documented in this encounter Visit Diagnoses Diagnosis Restless legs syndrome (RLS)- Primary Pericarditis Unspecified disease of pericardium Bilateral leg edema Edema Iron deficiency Iron deficiency anemia, unspecified documented in this encounter Care Teams Satin Finisher Relationship Specialty Start Date End Date Bernadette Childs MD [address] [place] [address] PCP - General 04/03/12 07/27/20 documented as of this encounter
--- OUTSIDE RECORDS SUMMARY | 2023-09-06 01:42 | XMS_ITS | Encounter Summary ---
Author Organization [facility] Address [address] [place] [address] Care Team Providers Care Placement Specialist Name Role Phone Unknown, Provider Primary Care Provider Encounter Details Date Type Department Care Team (Late st Contact Info) Description 06/16/2023 Lab Requisition [facility] Pathology & Laboratory Medicine - [facility] [address] [place] [address] Outr Resulting Lab, Provider Social History Tobacco Use Types Packs/Day Years [...] Procedure Name Priority Date/Time Associated Diagnosis Comments AFP TUMOR MARKER Routine 06/16/2023 10:0 9 EDT documented in this encounter Results * AFP TUMOR MARKER (06/16/2023 10:09 EDT) AFP Tumor Marker 2.8 <8.1 ng/mL 06/17/2023 9:04 EDT [facility] Comment: AFP Tumor Marker cannot be interpreted in females. ?? NOTE: Serum AFP concentrations should not be interpreted as absolute evidence for the presence or absence of malignant disease. Assayed on Siemens ADVIA Centaur XPT using chemiluminescent technology. ??Values obtained by using different assay methods cannot be used interchangeably. Blood VENOUS BLOOD / Unknown 06/16/2023 10:09 EDT 06/16/2023 17:03 EDT Provider Outr Resulting Lab CHEMISTRY & BLOOD GAS ORDERABLES [facility] [address] [place] [address] documented in this encounter Visit Diagnoses Not on filedocumented in this encounter Care Teams Placement Specialist Relationship Specialty Start Date End Date Unknown, Provider, PCP - General 10/22/22 documented as of this encounter
--- OUTSIDE RECORDS SUMMARY | 2023-09-06 01:42 | XMS_ITS | Encounter Summary ---
Author Organization [facility] Address [facility] [place] [address] Care Team Providers Care Wharfmaster Name Role Phone Bernadette Childs MD Primary Care Provider [phone] Encounter Details Date Type Department Care Team (Late st Contact Info) Description 01/17/2013 Orders Only [place] [address] Octaviano Torrez MD [facility] [place] [address] Social History Tobacco Use Types Packs/Day Years [...] 11:00 AM EDT [place] [id number] Mague Johnson MD [facility] [place] [address] Pending Results Name Type Priority Associated Diagnoses Date /Time Film Library- Storage only CT abdomen & pelvis Imaging Routine 013 6:58 PM EST documented as of this encounter Visit Diagnoses Not on filedocumented in this encounter Care Teams Wharfmaster Relationship Specialty Start Date End Date Bernadette Childs MD [address] [place] [address] PCP - General 04/03/12 07/27/20 documented as of this encounter
--- OUTSIDE RECORDS SUMMARY | 2023-09-06 01:42 | XMS_ITS | Encounter Summary ---
Author Organization [facility] Address [facility] [place] [address] Care Team Providers Care Mechanic Senior Name Role Phone Bernadette Childs MD Primary Care Provider [phone] Reason for Visit * Reason Comments Pain Encounter Details Date Type Department Care Team (Late st Contact Info) Description 04/03/2012 10:15 AM EST Office Visit [place] [address] Oh Dumont MD [facility] [address] [place] [address] Restless leg syndrome; Insomnia; Arthralgia Discharge Disposition: Home Social History Tobacco Use Types Packs/Day Years Used Date Smoking Tobacco: Former Sex and Gender Information Value Date Recorded Sex Assigned at Female 07/09/2020 7:39 PM EDT Gender Identity Female 07/09/2020 7:39 PM EDT Sexual Orientation Straight 08/27/2020 7: 10 PM EDT documented as of this encounter Last Filed Vital Signs Vital Sign Reading Time Taken Comments Blood Pressure 113/78 04/03/2012 10:32 AM EST Pulse 89 04/03/2012 10:32 AM EST Temperature 36.8 ??C (98.2 ??F) 04/03/2012 10:[address] Respiratory Rate - - Oxygen Saturation 96% 04/03/2012 10:32 AM EST Inhaled Oxygen Concentration - - Weight 94.8 kg (209 lb) 04/03/2012 10:32 AM EST Height 158.8 cm (5' 2.5) 04/03/2012 10:32 AM ES T Body Mass Index 37.62 04/03/2012 10:32 AM EST documented in this encounter Patient Instructions * Patient Instructions* Oh Dumont MD - 04/03/2012 11:36 AM EST 1. Worried about restless leg syndrome, start iron replacement therapy 2-3 x a day 2. Add lorazepam 1-2 tablets at bedtime to trazodone 3. Return in 1 month to assess response documented in this encounter Progress Notes * Darin Abreu - 04/03/2012 11:56 AM ESTAddended by: DARIN ABREU on: 04/03/2012 11:56 AM Modules accepted: Orders * Oh Dumont MD - 04/03/2012 10:50 AM EST 46 yo woman with a CC of: Make me feel better and find out what is wrong with me? Ms Beltre is the sister of a patient of mine with RA and a positive family hx. She says she was in her usual state of health until July 2011, when she developed left sided chest and back and UE pain that was diagnosed as pericarditis. Extensively worked up and was followed by Dr. Musa Lawrence at [facility]. She was treated with colchicine, hydrocodone with great improvement and is now intermittent. Subsequently she has been experiencing various pains in her back, neck, fatigue, exhaustion all since July. AM stiffness in back, hips, neck. Tired all the time. Has some ankle, foot pain, hands to alesser degree, PERALTA, shortness of breath (since ). Hurts to bend over. Shoulders hurt, handsfeel weak, but feel weak all over She [...] pencillin, sulfa, latex Review of Systems Constitutional: fevers, chills, malaise. Skin: no rashes HEENT: ++ sicca sx, change in hearing, taste sinus pain, PERALTA, change in taste. + sores in mouth Respiratory: ++ chest/thoracic spine pain, shortness of breath CV: , claudication Back: No sciatica, pain with standing GI: ++ BLQ abd pain, normal bowel movements : no dysuria, normal voiding, no nocturia Neuro: no focal deficit paresthesias at night when asleep. Family Hx: + diabetes, RA, RSD Social Hx; Stateless [place], 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 Stopped smoking 15 years, no alcohol. works at former [employer] and . [employer]. Physical Exam: Blood pressure 113/78, pulse 89, temperature 36.8 ??C (98.2 ??F), temperature sourceOral, height 158.8 cm (5' 2.5), weight 94.802 kg (209 lb), SpO2 96.00%. Obese, pleasant NAD Skin: -CCE HEENT: decreased salivary pooling Neck supple no bruits, nodes Chest/Cor/Abd All normal Back: Diffuse trigger points, normal SLR Ext exam: normal pulses Joint exam: diffuse trigger points, no arthritis, full ROM. Neuro: normal JPS, no focal deficit Outside Labs: Did have elevated CRP in July and iron deficiency in July 2011. No longer on iron. 1.13 labs showed CRP 11 mg/L, ACPA negative, normal diff, microcytosis with MCV 73.5, Hct 40 normal RF Assess: Despite the inflammatory hx suggested by the episode of pericarditis, I think the sleep disturbance best explains her various arthralgias, myalgias and lack of energy. This sleep disturbance sounds most like RLS, which is triggered by iron deficiency. This is not the picture of RA and I am doubtful the pericarditis related to most of her symptoms at this point. We will clarify by iron replacement and using pre-existing lorazepam (which works for RLS) for sleep issues. Plan 1. Baseline iron, CRP studies 2. FeSO4 325 mg tid 3. Lorazepam 1-2 t at HS for sleep, consider Klonopin if partial response noted 4. Discussed with pt and who understand 5. RTC 1 month Level 5 consult Oh Dumont M.d. documented in this encounter Miscellaneous Notes * Miscellaneous - Provider, Scanning - 04/05/2012 12:04 PM EST documented in this encounter Plan of Treatment Upcoming Encounters Date Type Department Care Team (Late st Contact Info) Description 09/14/2023 11:00 AM EDT Office Visit [place] [address] Mague Johnson MD [facility] DR [place] [address] documented as of this encounter Procedures Procedure Name Priority Date/Time Associated Diagnosis Comments ANTI-CYCLIC CITRULLINATED PEPTIDE AB Routine 04/03/2012 12:02 PM EST Restless leg syndrome Arthralgia DIFFERENTIAL, AUTOMATED Routine 04/03/2012 12:02 PM EST CBC (WITH DIFF) Routine 04/03/2012 12:02 PM EST Restless leg syndrome Arthralgia CRP, CARDIAC RISK (HS CRP) Routine 04/03/2012 12:02 PM EST Restless leg syndrome Arthralgia FERRITIN Routine 04/03/2012 12:02 PM EST Restless leg syndrome Insomnia Arthralgia documented in this encounter Results * Differential, Automated (04/03/2012 12:02 PM EST) Neutrophils % 58.0 34.0 - 71.0 % CERNER MILLENNIUM Neutr Abs (ANC) 4.25 1.50 - 6.30 x10(3)/mcL CERNER MILLENNIUM Lymphocytes % 30.9 19.0 - 53.0 % CERNER MILLENNIUM Lymphocytes Abs 2.3 1.0 - 3.6 x10(3)/mcL CERNER MILLENNIUM Monocytes % 8.5 4.0 - 13.0 % CERNER MILLENNIUM Monocyte Abs 0.6 0.2 - 1.0 x10(3)/mcL CERNER MILLENNIUM Eosinophils % 2.3 0.0 - 7.0 % CERNER MILLENNIUM Eosinophils Abs 0.2 0.0 - 0.5 x10(3)/mcL CERNER MILLENNIUM Basophils % 0.3 0.0 - 2.0 % CERNER MILLENNIUM Basophils Abs 0.0 0.0 - 0.2 x10(3)/mcL CERNER MILLENNIUM Immature Gran % 0.00 0.00 - 0.66 % CERNER MILLENNIUM Comment: Immature granulocytes(IG's)percentage and absolute count will include metamyelocytes, myelocytes, and promyelocytes. Blood smears from CBCs yielding IG's will be scanned manually for concordance. If this scan disagrees with the automated IG or if promyelocytes are noted, a manual differential will be performed. Ashley Gran Abs 0.00 0.00 - 0.05 x10(3)/mcL CERNER MILLENNIUM Blood specimen (specimen) 04/03/2012 12:02 PM EST 04/03/2012 12:18 PM EST Oh Dumont MD HEMATOLOGY ORDERABLE S KARO PENAIUM * Ferritin (04/03/2012 12:02 PM EST) Pathologist [facility] Ferritin 41 15 - 150 ng/mL CERNER MILLENNIUM Comment: Pediatric reference ranges not verified at [facility], interpret with caution. Reference ranges for females greater than 50 years of age approach values for men, i.e., 30-400 ng/mL. Blood specimen (specimen) 04/03/2012 12:02 PM EST 04/03/2012 12:18 PM EST Narrative Resulting Agency Comment Spec In Lab Oh Dumont MD CHEMISTRY ORDERABLES KARO RAMIREZENNIUM * (ABNORMAL) CBC (with Diff) (04/03/2012 12:02 PM EST) WBC 7.3 4.0 - 10.0 x10(3)/mcL CERNER MILLENNIUM RBC 5.31(H) 3.93 - 5.22 x10(6)/mcL CERNER MILLENNIUM Hemoglobin 12.9 11.2 - 15.7 gm/dL CERNER MILLENNIUM Hematocrit 39.7 34.0 - 45.0 % CERNER MILLENNIUM MCV 74.8(L) 79.0 - 94.0 fL CERNER MILLENNIUM MCH 24.3(L) 26.6 - 32.2 pg CERNER MILLENNIUM MCHC 32.5 32.0 - 36.5 gm/dL CERNER MILLENNIUM Platelets 305 145 - 370 x10(3)/mcL CERNER MILLENNIUM RDWSD 48.7(H) 35.0 - 46.0 fL CERNER MILLENNIUM RDWCV 18.0(H) 10.9 - 14.4 % CERNER MILLENNIUM MPV 10.9 9.0 - 12.0 fL CERNER MILLENNIUM Blood specimen (specimen) 04/03/2012 12:02 PM EST 04/03/2012 12:18 PM EST Narrative Resulting Agency Comment Spec In Lab Oh Dumont MD HEMATOLOGY ORDERABLE S KARO RUBIN * (ABNORMAL) Cyclic Citrullinated Peptide (04/03/2012 12:02 PM EST) Anti-Cyc Cit Peptide 5.2(H) <=5.0 u/ml CERNER MILLENNIUM Blood specimen (specimen) 04/03/2012 12:02 PM EST 04/03/2012 2:12 PM EST Narrative Resulting Agency Comment Spec In Lab Oh Dumont MD CHEMISTRY ORDERABLES Performing Organization Address [facility] de Phone Number KARO RUBIN * High Sensitivity CRP (04/03/2012 12:02 PM EST) [facility] CRP High Sens 12.3 mg/L KARO RUBIN Comment: Interpretations: 1) For cardiac risk assessment, two values (fasting or nonfasting sample acceptable) taken at least 2 weeks apart, should be averaged to provide a more reliable estimate of marker level. ??This laboratory uses the recommendations from the AHA/CDC Scientific Statement for interpretations of future risks of cardiovascular events: ? <1.0 mg/L: low risk 1.0 - 3.0 mg/L: moderate risk >3.0 mg/L: high risk groups for future cardiovascular events 2) The general reference range of apparently healthy individuals using this test is <5.0 mg/L (derived from the test package insert) A few words of caution: For cardiac assessment, when a value >10 mg/L is encountered, there should be a search for an acute inflammatory condition or infection (in patients with acute inflammation, the concentration can increase to >500 mg/L). ??The >10 mg/L should be discarded if such a situation exists, since the risk for coronary heart disease cannot be provided, and a repeat specimen, taken at least two weeks after resolution of the acute inflammatory condition, may allow for appraisal of coronary risk information. Please note that significantly decreased CRP values may be obtained from samples taken from patients who have been treated with carboxypenicillins. References: 1. Selvin WRIGHT et. al. ??AHA/CDC Scientific Statement: Markers of Inflammation and Cardiovascular Disease. ??Circulation 2003; 107:499-511 2. Ridker PM. ??Clinical applications of C-reactive protein for cardiovascular disease detection and prevention. ??Circulation 2003; 107:363-369 Blood specimen (specimen) 04/03/2012 12:02 PM EST 04/03/2012 12:18 PM EST Narrative Resulting Agency Comment Spec In Lab Oh Dumont MD CHEMISTRY ORDERABLES Performing Organization Address [facility] de Phone [facility] documented in this encounter Visit Diagnoses Diagnosis Restless leg syndrome Restless legs syndrome (RLS) Insomnia Insomnia, unspecified Arthralgia Pain in joint, site unspecified documented in this encounter Care Teams Mechanic Senior Relationship Specialty Start Date End Date Bernadette Childs MD [address] [place] [address] PCP - General 04/03/12 07/27/20 documented as of this encounter
--- OUTSIDE RECORDS SUMMARY | 2023-09-06 01:42 | XMS_ITS | Clinical Summary ---
Author Organization [facility] Address [address] [place] [address] Care Team Providers Care Can Sterilizer Name Role Phone Unknown, Provider Primary Care Provider Encounters Date Type Department Care Team Description 06/16/2023 Lab Requisition [facility] Pathology & Laboratory Medicine - [facility] [address] [place] [address] Outr Resulting Lab, Provider from Last 3 Months Social History Tobacco Use Types Packs/Day Years Used Date Smoking Tobacco: Never Assessed Interpersonal Safety Answer Date Record ed Physically Hurt Never 01/15/2020 Verbally Threaten Not on file 01/15/2020 Sex and Gender Information Value Date Recorded Sex Assigned at Not on file Gender Identity Not on file Sexual Orientation Not on file Plan of Treatment Health Maintenance Due Date Last Done Comments Hepatitis C Screen 1965 Hepatitis B Vaccine (1 of 3 - 19+ 3-dose series) 06/12 COVID-19 Vaccine ( season) 2022 Procedures Procedure Name Priority Date/Time Associated Diagnosis Comments AFP TUMOR MARKER Routine 06/16/2023 10:0 9 EDT from Last 3 Months Results * AFP TUMOR MARKER (06/16/2023 10:09 EDT) AFP Tumor Marker 2.8 <8.1 ng/mL 06/17/2023 9:04 EDT [facility] Comment: AFP Tumor Marker cannot [...] CHEMISTRY & BLOOD GAS ORDERABLES [facility] [address] [place] [address] from Last 3 Months Care Teams Can Sterilizer Relationship Specialty Start Date End Date Unknown, Provider, PCP - General 10/22/22
--- OUTSIDE RECORDS SUMMARY | 2023-09-06 01:42 | XMS_ITS | Encounter Summary ---
Author Organization [facility] Address [address] [place] [address] Care Team Providers Care Transfer Machine Operator Name Role Phone Unknown, Provider Primary Care Provider Encounter Details Date Type Department Care Team (Late st Contact Info) Description 09/02/2022 Lab Re[address] [facility] Pathology & Laboratory Medicine - [facility] [address] [place] [address] Outr Resulting Lab, Provider Social [...] Associated Diagnosis Comments AFP TUMOR MARKER Routine 09/02/2022 9:40 EDT documented in this encounter Results * AFP TUMOR MARKER (09/02/2022 9:40 EDT) AFP Tumor Marker 3.7 <8.1 ng/mL 09/03/2022 10:03 EDT [facility] Comment: AFP Tumor Marker cannot be interpreted in females. ?? NOTE: Serum AFP concentrations should not be interpreted as absolute evidence for the presence or absence of malignant disease. Assayed on Siemens ADVIA Centaur XPT using chemiluminescent technology. ??Values obtained by using different assay methods cannot be used interchangeably. Blood VENOUS BLOOD / Unknown 09/02/2022 9:40 EDT 09/02/2022 21:11 EDT Provider Outr Resulting Lab CHEMISTRY & BLOOD GAS ORDERABLES [facility] [address] [place] [address] documented in this encounter Visit Diagnoses Not on filedocumented in this encounter Care Teams Transfer Machine Operator Relationship Specialty Start Date End Date Unknown, Provider, PCP - General 10/22/22 documented as of this encounter
--- OUTSIDE RECORDS SUMMARY | 2023-09-06 01:42 | XMS_ITS | Encounter Summary ---
Author Organization [facility] Address [facility] [place] [address] Care Team Providers Care Cereal Popper Name Role Phone Bernadette Childs MD Primary Care Provider [phone] Encounter Details Date Type Department Care Team (Late st Contact Info) Description 01/11/2013 Orders Only [place] [address] Octaviano Torrez MD [facility] [place] [address] Social History Tobacco Use Types Packs/Day Years [...] EDT Office [place] [id number] Mague Johnson MD [facility] [place] [address] Pending Results Name Type Priority Associated Diagnoses Date /Time Film Library- Storage only Ultrasound Study Imaging Routine 01/11/2013 6:56 PM EST documented as of this encounter Visit Diagnoses Not on filedocumented in this encounter Care Teams Cereal Popper Relationship Specialty Start Date End Date Bernadette Childs MD [address] [facility] [address] [place] [address] PCP - General 04/03/12 07/27/20 documented as of this encounter
--- OUTSIDE RECORDS SUMMARY | 2023-09-06 01:42 | XMS_ITS | Encounter Summary ---
Author Organization [facility] Address [facility] [place] [address] Care Team Providers Care Sales And Service Advisor Name Role Phone Bernadette Childs MD Primary Care Provider [phone] Encounter Details Date Type Department Care Team (Late st Contact Info) Description 02/11/2013 External Results XRay at [address] [place] [address] Provider, Scanning Social History Tobacco Use Types Packs/Day Years Used Date Smoking Tobacco: Former Alcohol Use Standard Drinks/Week Comments No 0 [...] at [facility] [place] [address] Mague Johnson MD [facility] ENDOCRINOLOGY [place] [address] documented as of this encounter Procedures Procedure Name Priority Date/Time Associated Diagnosis Comments MRI/MRA SCAN Routine 01/24/2013 DIAGNOSTIC RADIOLOGY SCAN Routine 01/24/2013 CT SCAN (SCAN) Routine 01/17/2013 ULTRASOUND SCAN (SCAN) Routine 01/11/2013 documented in this encounter Results * Scan Doc: MRI/MRA (01/24/2013) Anatomical Region Laterality Modality Other Scanning Provider MEDIA MGR SCAN EXT O RDR/RSLT * Scan Doc: Diagnostic Radiology (01/24/2013) Anatomical Region Laterality Modality Other Scanning Provider MEDIA MGR SCAN EXT O RDR/RSLT * Scan Doc: CT Scan (01/17/2013) Anatomical Region Laterality Modality Other Scanning Provider MEDIA MGR SCAN EXT O RDR/RSLT * Scan Doc: Ultrasound (01/11/2013) Anatomical Region Laterality Modality Other Scanning Provider MEDIA MGR SCAN EXT O RDR/RSLT documented in this encounter Visit Diagnoses Not on filedocumented in this encounter Care Teams Sales And Service Advisor Relationship Specialty Start Date End Date Bernadette Childs MD [address] [place] [address] PCP - General 04/03/12 07/27/20 documented as of this encounter
--- OUTSIDE RECORDS SUMMARY | 2023-09-06 01:42 | XMS_ITS | Encounter Summary ---
[place] [address] Care Team Providers Care Truck Driving Instructor Name Role Phone Bernadette Childs MD Primary Care Provider [phone] Encounter Details Date Type Department Care Team (Latest Contact Info) Description 01/30/2013 3:00 PM EST Clinical [place] [id number] Abdominal pain, RUQ (right upper quadrant); Biliary colic Social History Tobacco Use Types Packs/Day Years [...] Respiratory Rate - - Oxygen Saturation 97% 01/30/2013 3:02 PM EST Inhaled Oxygen Concentration - - Weight - - Height - - Body Mass Index - - documented in this encounter Progress Notes * Freida Lopez RN - 01/30/2013 4:08 PM EST Pre-anesthesia questionnaire reviewed with patient. No previous issues with anesthesia. Pre-op folder reviewed with patient and all questions addressed. Labs to be done at [facility]. Surgery with Dr. Torrez not yet booked. documented in this encounter Plan of Treatment Upcoming Encounters Date Type Department Care Team (Late st Contact Info) Description 09/14/2023 11:00 AM EDT Office [place] [address] Mague Johnson MD [facility] [address] [place] [address] documented as of this encounter Visit Diagnoses Diagnosis Abdominal pain, RUQ (right upper quadrant) Abdominal pain, right upper quadrant Biliary colic Calculus of gallbladder without mention of cholecystitis or obstruction documented in this encounter Care Teams Truck Driving Instructor Relationship Specialty Start Date End Date Bernadette Childs MD [address] [facility] [address] [place] [address] PCP - General 04/03/12 07/27/20 documented as of this encounter
--- OUTSIDE RECORDS SUMMARY | 2023-09-06 01:42 | XMS_ITS | Encounter Summary ---
Author Organization [facility] Address [facility] [place] [address] Care Team Providers Care Office Technician Name Role Phone Bernadette Childs MD Primary Care Provider [phone] Reason for Visit * Reason Onset Date Comments Medication Refill 09/05/2012 Encounter Details Date Type Department Care Team ([facility] Contact Info) Description 09/05/2012 Refill [place] [address] Oh Dumont MD [facility] [place] [address] Social History Tobacco Use Types Packs/Day Years Used Date Smoking Tobacco: Former Sex and Gender Information Value Date Recorded Sex Assigned at Female 07/09/2020 7:39 PM EDT Gender Identity Female 07/09/2020 7:39 PM EDT Sexual Orientation Straight 08/27/2020 7: 10 PM EDT documented as of this encounter Miscellaneous Notes * Telephone Encounter - Nona Sommer RN - 09/05/2012 1:14 PM EDT Called in Lorazepam rx to [facility] in [place]. Called Teresita and left message letting her know rxhad been called in. documented in this encounter Plan of Treatment Upcoming Encounters Date Type Department Care Team ([facility] Contact Info) Description 09/14/2023 11:00 AM EDT Office Visit [place] [address] Mague Johnson MD [facility] DR ENDOCRINOLOG[place] [address] documented as of this encounter Visit Diagnoses Not on filedocumented in this encounter Care Teams Office Technician Relationship Specialty Start Date End Date Bernadette Childs MD [address] [place] [address] PCP - General 04/03/12 07/27/20 documented as of this encounter
--- OUTSIDE RECORDS SUMMARY | 2023-09-06 01:42 | XMS_ITS | Encounter Summary ---
Author Organization [facility] Address [facility] [place] [address] Care Team Providers Care Message And Delivery Service Pricer Name Role Phone Bernadette Childs MD Primary Care Provider [phone] Reason for Visit * Reason Comments Restless Leg Syndrome Encounter Details Date Type Department Care Team (Late st Contact Info) Description 05/08/2012 12:15 PM EDT [place] [address] Oh Dumont MD [facility] [place] [address] Restless legs (Primary Dx); Insomnia; Iron deficiency Discharge Disposition: Home Social History [...] Sign Reading Time Taken Comments Blood Pressure 121/80 05/08/2012 12:36 PM EDT Pulse 84 05/08/2012 12:36 PM EDT Temperature 36.6 ??C (97.9 ??F) 05/08/2012 12:36 PM E DT Respiratory Rate - - Oxygen Saturation 92% 05/08/2012 12:36 PM EDT Inhaled Oxygen Concentration - - Weight 94.8 kg (209 lb) 05/08/2012 12:36 PM EDT Height 159.4 cm (5' 2.75) 05/08/2012 12:36 PM E DT Body Mass Index 37.32 05/08/2012 12:36 PM EDT documented in this encounter Patient Instructions * Patient Instructions* Oh Dumont MD - 05/08/2012 1:08 PM EDT 1. Continue lorazepam and trazodone 2. Reduce iron to twice daily for the nausea. 3. After 3 months, consider tapering off the lorazepam, which is for the restless legs. 4. Return in 6 months 5. Contact if symptoms of pericarditis recur or persist or have concerns documented in this encounter Progress Notes * Oh Dumont MD - 05/08/2012 12:58 PM EDT Ms Beltre is the sister of a patient of [facility] with RA and a positive family hx, seen in 1 month f/u for polyarthralgias occurring in the context of low iron, restless legs and sleep disturbance and diabetes. Interval Hx: Sleeping better on lorazepam and trazodone. Tolerating the iron. Reduced pain. Both and patient note the benefit. Still having some nausea. No more pericarditis. HPI Patient was in her usual state of health until July 2011, when she developed left sided chest and back and UE pain that was diagnosed as pericarditis. Extensively worked up and was followed by Dr. Musa Lawrence at [facility]. She was treated with colchicine, hydrocodone with [...] no focal deficit paresthesias at night when asleep, less. 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 Stopped smoking 15 years, no alcohol. works at [employer] and . [employer] 15. Physical Exam: Blood pressure 121/80, pulse 84, temperature 36.6 ??C (97.9 ??F), temperature sourceOral, height 159.4 cm (5' 2.75), weight 94.802 kg (209 lb), SpO2 92.00%. Obese, pleasant NAD. Lessening of trigger points, no joint swelling. Assess: Despite the inflammatory hx suggested by the episode of pericarditis and mildly elevated CRP, there has been a great response of her various arthralgias, myalgias and lack of energy to lorazepam and iron. This supports the notion that this sleep disturbance sounds most like RLS, which is triggered by iron deficiency. . Plan 1. Reduce iron to bid given some nausea 2. Attempt to taper lorazepam in 1-2 months 3. Return in 6 months or prn Level 4 f/u Oh Dumont M.d. documented in this encounter Plan of Treatment Upcoming Encounters Date Type Department Care Team (Late st Contact Info) Description 09/14/2023 11:00 AM EDT Office [place] [address] Mague Johnson MD [facility] [place] [address] documented as of this encounter Visit Diagnoses Diagnosis Restless legs- Primary Restless legs syndrome (RLS) Insomnia Insomnia, unspecified Iron deficiency Iron deficiency anemia, unspecified documented in this encounter Care Teams Message And Delivery Service Pricer Relationship Specialty Start Date End Date Bernadette Childs MD [address] [facility] [address] [place] [address] PCP - General 04/03/12 07/27/20 documented as of this encounter
--- OUTSIDE RECORDS SUMMARY | 2023-09-06 01:42 | XMS_ITS | Encounter Summary ---
Author Organization [facility] Address [facility] [place] [address] Care Team Providers Care Stove Polisher Name Role Phone Bernadette Childs MD Primary Care Provider [phone] Encounter Details Date Type Department Care Team (Late st Contact Info) Description 01/25/2013 Orders Only [place] [address] Octaviano Torrez MD [facility] [place] [address] Social History Tobacco Use Types Packs/Day Years [...] 11:00 AM EDT Office Visit [place] [phone] Mague Johnson MD [facility] [place] [address] Pending Results Name Type Priority Associated Diagnoses Date /Time Film Library- Storage only DX Chest Imaging Routine 01/25/2013 6:46 PM EST documented as of this encounter Visit Diagnoses Not on filedocumented in this encounter Care Teams Stove Polisher Relationship Specialty Start Date End Date Bernadette Childs MD [address] [place] [address] [place] [address] PCP - General 04/03/12 07/27/20 documented as of this encounter
--- OUTSIDE RECORDS SUMMARY | 2023-09-06 01:42 | XMS_ITS | Encounter Summary ---
Author Organization [facility] [place] [address] Care Team Providers Care Workday Director Name Role Phone Bernadette Childs MD Primary Care Provider [phone] Encounter Details Date Type Department Care Team (Late st Contact Info) Description 02/19/2013 11:47 AM EST Anesthesia Event [place] [address] Nikolas Sanabria MD [facility] [place] [address] Anesthesia Record Procedure Summary Procedure Name Responsible Anesthesiologist Anesthesia Start Time Anesthesia Stop Time LAPAROSCOPIC CHOLECYSTECTOMY WITH CHOLANGIOGRAM (WRVU 11.47) (Abdomen) Nikolas Sanabria MD 02/19/13 1147 02/19/13 1428 Events Date Time Event Comment 02/19/2013 1002 1147 Start 1152 AN Verify 1152 An Start Data 1158 An Induction 1200 An Intubation 1200 Anesthesia Ready 1217 Procedure Start 1408 Extubation/LMA Out 1408 an stop data 1428 Stop Meds Name Total Midazolam 2 mg fentaNYL 175 mcg lidocaine IV 100 mg propofol 200 mg Rocuronium 70 mg PHENYLephrine 160 mcg Ondansetron 8 mg Dexamethasone 8 mg Neostigmine 4 mg Glycopyrrolate 0.6 mg ceFAZolin (ANCEF) 2g in dextrose 5% 50 m L 2 g heparin (porcine) subcutaneous injection 5,000 Units 5,000 Units lactated ringers 900 mL * Agents Name O2 Air Sevoflurane (et) * Blood No blood administrations on file. Lines, Drains, and Airways Type Details Placement Removal Incision 02/19/13; abdomen; 10/19/21 (LDA cleanup utility RA#[id number]); 1715 (LDA cleanup utility RA#[id number]) 02/19/13 0000 by Sahil Panda RN 10/19/21 1715 by Nandini Kumar Drain/Device Site 02/19/13; abdomen; 02/21/13; 0915 02/19/13 0000 by Sahil Panda RN 02/21/13 0915 by Gerda Nelson RN Urethral Catheter 02/19/13; indwelling double lumen catheter; 02/20/13; 0753 02/19/13 0000 by Bernadine Sarmiento RN 02/20/13 0753 by Rachna Diaz RN (RETIRED) Peripheral IV Line - Single Lumen 02/19/13; 0939; 02/22/13; 0933 02/19/13 0939 by Trish Camacho RN 02/22/13 0933 by Luana Crook RN (RETIRED) Non-Surgical Airway Mask Ventilation: Easy (1); ETT Type: Cuffed, Oral; ETT Size: 7 mm; Removal Date: 02/19/13; Removal Time: 1408 02/19/13 1200 by Jeannette Walker MD 02/19/13 1408 by Jeannette Walker MD documented in this encounter Social History Tobacco Use Types Packs/Day Years [...] PM EDT documented as of this encounter OR Notes * Anesthesia Postprocedure Evaluation - Jeannette Walker MD - 02/19/2013 2:34 PM EST Patient: Teresita Beltre Procedure(s) Performed: Procedure(s): LAPAROSCOPIC CHOLECYSTECTOMY WITH CHOLANGIOGRAM LAPAROSCOPIC LIVER BIOPSY Actual Anesthetic: @ANTYPEFINAL@ Patient location: PACU Post-op pain: Adequate analgesia; responding to fentanyl bolus in pacu Post-op nausea: no nausea or vomiting Last Vitals: Filed Vitals: 02/19/13 1415 BP: 114/74 Pulse: 87 Temp: 36.8 ??C (98.2 ??F) Resp: 14 Post-op cardiovascular and respiratory status: is stable Level of consciousness: awake, alert and oriented Complications: no apparent complications and tolerated the procedure well Fluid Status: normal * Anesthesia Preprocedure Evaluation - Nikolas Sanabria MD - 02/18/2013 8:22 PM EST Pre-Anesthesia Evaluation for: Teresita Beltre a 47 y.o. female. Procedure(s): LAPAROSCOPIC CHOLECYSTECTOMY WITH CHOLANGIOGRAM LAPAROSCOPIC LIVER BIOPSY Patient Active Problem List Diagnosis ??? Abdominal pain, RUQ (right upper quadrant) ??? Abnormal LFTs (liver function tests) Past Medical History Diagnosis Date ??? Diabetes mellitus ??? Pericarditis ??? Hyperlipidemia ??? Obesity ??? Anxiety ??? Depression Past Surgical History Procedure Date ??? Colonoscopy ??? Upper gastrointestinal endoscopy History Substance Use Topics ??? Smoking status: Former Smoker ??? Smokeless tobacco: Not on file ??? Alcohol Use: No History Drug Use No Allergies Allergen Reactions ??? Latex Rash ??? Adhesive Bandage CIS - Localized Reaction ??? Amoxicillin Trihydrate CIS - Rash ??? Penicillins Rash ??? Sulfa (Sulfonamide Antibiotics) CIS - Rash Medications: MAR and/or home medications have been reviewed. Physical Exam: There were no vitals filed for this visit. There is no height or weight on file to calculate BMI. Airway Assessment: Mallampati: II TM distance: >3 FB Neck ROM: full Cardiovascular Assessment: Rhythm: regular Rate: normal (-) murmur and carotid bruit Pulmonary Assessment: breath sounds clear to auscultation Dental Assessment: Comment: Crowns none in front Misc Assessment: Anesthesia Plan: ASA 2 general, with a(n) intravenous induction Teresita Beltre is a 91kg 47 y.o. female with PMH per above significant for probable PBC to OR on 02/18/2013 for lap joellen with possible IOC, liver biopsy. PMHx/PSHx also significant for (per surgeon H&P): Teresita Beltre has RUQ pain and a strong family history of autoimmune disease. She LFTs are consistent with PBC and labs checked today reveal a positive ASMA which is also consistent with PBC. If is also possible that she has some element of biliary dyskinesia given her symptoms. She was also noted to have GB wall thickening on her ultrasound ALLERGIES: -- Latex -- Rash -- Adhesive Bandage -- CIS - Localized Reaction -- Amoxicillin Trihydrate -- CIS - Rash -- Penicillins -- Rash -- Sulfa (Sulfonamide Antibiotics) -- CIS - Rash LABS: No results found for this or any previous visit (from the past 24 hour(s)). ANESTHESIA PLAN: Teresita Beltre has had no issues with anesthesia in past, per chart review. Pending no new issues discovered in holding area on day of surgery, we plan to proceed with Generalanesthesia with an IV induction, ETT. Standard monitors. 2nd IV setup will be available in room. Code status: Full code. Jeannette Walker MD Anesthesia CA-1 [phone] Region - Other Informed Consent: Anesthetic plan and risks discussed with patient. Use of blood products discussed with patient whom consented to blood products. Plan discussed with resident. [facility] Assessment: documented in this encounter Plan of Treatment Upcoming Encounters Date Type Department Care Team (Late st Contact Info) Description 09/14/2023 11:00 AM EDT Office Visit [place] [phone] Mague Johnson MD [facility] [place] [address] documented as of this encounter Visit Diagnoses Not on filedocumented in this encounter Administered Medications Inactive Administered Medications - up to 3 most recent administrations Medication Order MAR Action Action Date Dose Rate Site ceFAZolin (ANCEF) 2g in dextrose 5% 50 mL 2 g, Intravenous, EVERY 3 HOURS, First dose on Tue02/19/13 at 0930, Until Discontinued, Day of Surgery (Day of Procedure), Indication for (Active or Suspected): Prophylaxis Given 02/19/2013 11:55 AM EST 2 g dexamethasone (DECADRON) injection PRN, Starting on Tue02/19/13 at 1205, Until Tue02/19/13 at 1434, Anesthesia Intra-op, Routine Given 02/19/2013 1:57 PM EST 4 mg Given 02/19/2013 12:05 PM EST 4 mg fentaNYL 50mcg/mL injection PRN, Starting on Tue02/19/13 at 1158, Until Tue02/19/13 at 1434, Pain, Anesthesia Intra-op, Routine Given 02/19/2013 2:23 PM EST 50 mcg Given 02/19/2013 2:02 PM EST 25 mcg Given 02/19/2013 11:58 AM EST 100 mcg glycopyrrolate (ROBINUL) injection PRN, Starting on Tue02/19/13 at 1346, Until Tue02/19/13 at 1434, Anesthesia Intra-op, Routine Given 02/19/2013 1:46 PM EST 0.6 mg heparin (porcine) subcutaneous injection 5,000 Units 5,000 Units, Subcutaneous, ONCE, 1 dose, On Tue02/19/13 at 0930, Day of Surgery (Day of Procedure), Routine Given 02/19/2013 12:05 PM EST 5,000 U nits lactated ringers infusion CONTINUOUS PRN, Starting on Tue02/19/13 at 1147, Until Tue02/19/13 at 1434, Anesthesia Intra-op New Bag 02/19/2013 11:47 AM EST mL lidocaine (PF) (XYLOCAINE) 100 mg/5 mL (2 %) injection PRN, Starting on Tue02/19/13 at 1158, Until Tue02/19/13 at 1434, Anesthesia Intra-op, Routine Given 02/19/2013 11:58 AM EST 100 mg midazolam (VERSED) injection PRN, Starting on Tue02/19/13 at 1147, Until Tue02/19/13 at 1434, Sleep, Anesthesia Intra-op, Routine Given 02/19/2013 11:47 AM EST 2 mg neostigmine (PROSTIGMINE) injection PRN, Starting on Tue02/19/13 at 1346, Until Tue02/19/13 at 1434, Anesthesia Intra-op, Routine Given 02/19/2013 1:46 PM EST 4 mg ondansetron (ZOFRAN) injection PRN, Starting on Tue02/19/13 at 1357, Until Tue02/19/13 at 1434, Nausea, Anesthesia Intra-op, Routine Given 02/19/2013 1:58 PM EST 4 mg Given 02/19/2013 1:57 PM EST 4 mg PHENYLephrine HCl in NS (PF) (RADHA-SYNEPHRINE) 0.8 mg/10 mL (80 mcg/mL) injection Syrg PRN, Starting on Tue02/19/13 at 1346, Until Tue02/19/13 at 1434, Anesthesia Intra-op, Routine Given 02/19/2013 1:48 PM EST 80 mcg Given 02/19/2013 1:46 PM EST 80 mcg propofol (DIPRIVAN) 10 mg/mL bolus injection (Anesthesia) PRN, Starting on Tue02/19/13 at 1158, Until Tue02/19/13 at 1434, Anesthesia Intra-op Given 02/19/2013 11:58 AM EST 2 00 mg rocuronium (ZEMURON) injection PRN, Starting on Tue02/19/13 at 1158, Until Tue02/19/13 at 1434, Anesthesia Intra-op, Routine Given 02/19/2013 12:43 PM EST 20 mg Given 02/19/2013 11:58 AM EST 50 mg documented in this encounter Care Teams Workday Director Relationship Specialty Start Date End Date Bernadette Childs MD [address] [facility] [address] [place] [address] PCP - General 04/03/12 07/27/20 documented as of this encounter
--- OUTSIDE RECORDS SUMMARY | 2023-09-06 01:42 | XMS_ITS | Referral Summary ---
Author Organization [facility] Address [address] [place] [address] Care Team Providers Care Latin Teacher Name Role Phone Unknown, Provider Primary Care Provider Encounters Date Type Department Care Team Description 06/16/2023 Lab Requisition [facility] Pathology & Laboratory Medicine - [facility] [address] [place] [address] Outr Resulting Lab, Provider from Last 3 Months Social History Tobacco Use Types Packs/Day Years Used Date Smoking Tobacco: Never Assessed Interpersonal Safety Answer Date Record ed Physically Hurt Never 01/15/2020 Verbally Threaten Not on file 01/15/2020 Sex and Gender Information Value Date Recorded Sex Assigned at Not on file Gender Identity Not on file Sexual Orientation Not on file Plan of Treatment Not on file Procedures Procedure Name Priority Date/Time Associated Diagnosis Comments AFP TUMOR MARKER Routine 06/16/2023 10:0 9 EDT from Last 3 Months Results * AFP TUMOR MARKER (06/16/2023 10:09 EDT) AFP Tumor Marker 2.8 <8.1 ng/mL 06/17/2023 9:04 EDT [facility] Comment: AFP Tumor Marker [...] Resulting Lab CHEMISTRY & BLOOD GAS ORDERABLES [facility] [address] [place] [address] from Last 3 Months Care Teams Latin Teacher Relationship Specialty Start Date End Date Unknown, Provider, PCP - General 10/22/22
--- OUTSIDE RECORDS SUMMARY | 2023-09-06 01:42 | XMS_ITS | Encounter Summary ---
Author Organization [facility] Address [address] [place] [address] Care Team Providers Care Tube Repairer Name Role Phone Unknown, Provider Primary Care Provider Encounter Details Date Type Department Care Team (Late st Contact Info) Description 03/14/2023 Lab Requisition [facility] Pathology & Laboratory Medicine - [facility] [address] [place] [address] Outr Resulting Lab, Provider Social [...] Associated Diagnosis Comments AFP TUMOR MARKER Routine 03/14/2023 8:42 EST documented in this encounter Results * AFP TUMOR MARKER (03/14/2023 8:42 EST) AFP Tumor Marker 4.2 <8.1 ng/mL 03/14/2023 17:59 EST [facility] Comment: AFP Tumor Marker cannot be interpreted in females. ?? NOTE: Serum AFP concentrations should not be interpreted as absolute evidence for the presence or absence of malignant disease. Assayed on Siemens ADVIA Centaur XPT using chemiluminescent technology. ??Values obtained by using different assay methods cannot be used interchangeably. Blood VENOUS BLOOD / Unknown 03/14/2023 8:42 EST 03/14/2023 16:52 EST Provider Outr Resulting Lab CHEMISTRY & BLOOD GAS ORDERABLES Performing Organization Address [facility]/State/ZIP Co de Phone Number [facility] [address] [place] [address] documented in this encounter Visit Diagnoses Not on filedocumented in this encounter Care Teams Tube Repairer Relationship Specialty Start Date End Date Unknown, Provider, PCP - General 10/22/22 documented as of this encounter
--- OUTSIDE RECORDS SUMMARY | 2023-09-06 01:42 | XMS_ITS | Encounter Summary ---
[place] [address] Care Team Providers Care Ignition Specialist Name Role Phone Bernadette Childs MD Primary Care Provider [phone] Reason for Visit * Reason Onset Date Comments Other 10/19/2012 appt Encounter Details Date Type Department Care Team (Late st Contact Info) Description 10/19/2012 [place] [address] Nona Sommer RN Other (appt) Social History Tobacco Use Types Packs/Day Years Used Date Smoking Tobacco: Former Sex and Gender Information Value Date Recorded Sex Assigned at Female 07/09/2020 7:39 PM EDT Gender Identity Female 07/09/2020 7:39 PM EDT Sexual Orientation Straight 08/27/2020 7: 10 PM EDT documented as of this encounter Miscellaneous Notes * Telephone Encounter - Nona Sommer RN - 10/20/2012 9:29 AM EDT Called Teresita and left message with appt time. * Telephone Encounter - Oh Dumont MD - 10/20/2012 8:31 AM EDT Will see 9 or 10 am on Tuesday; may have a cancellation of my 9am Oh Dumont * Telephone Encounter - Oh Dumont MD - 10/20/2012 8:30 AM EDT Zarina, can you schedule her to see me at 10 am Tuesday after Oh Dumont * Telephone Encounter - Nona Sommer RN - 10/19/2012 3:43 PM EDT Teersita is calling to find out if she can see Dr. Dumont sooner than 11/06. The past couple of weeks herfeet, ankles and legs have begun to swell. She says she is having pain in her feet that is achy and burning. Asked her if this has occurred in the past, she said yes, when she had pericarditis. Shehas seen her vineyard worker, who says this is not another pericarditis. She also has been having problems with nausea despite reducing her iron dose to bid. She talked to her pcp, hoping she would order labs, but she didn't. She says she is not supposed to take prednisone per her vineyard worker. She says she is currently on Furosemide 10 mg bid. She says she will be out of town on 10/29, 10/30 and 10/31. I deally, she would like to see him on 10/24, but is open to other days if sooner than 11/06. documented in this encounter Plan of Treatment Upcoming Encounters Date Type Department Care Team (Late st Contact Info) Description 09/14/2023 11:00 AM EDT Office [place] [address] Mague Johnson MD [facility] [place] [address] documented as of this encounter Visit Diagnoses Not on filedocumented in this encounter Care Teams Ignition Specialist Relationship Specialty Start Date End Date Bernadette Childs MD [address] [place] [address] [place] [address] PCP - General 04/03/12 07/27/20 documented as of this encounter
--- OUTSIDE RECORDS SUMMARY | 2023-09-06 01:42 | XMS_ITS | Encounter Summary ---
Author Organization [facility] Address [address] [place] [address] Care Team Providers Care Cyber Security Specialist Name Role Phone Unknown, Provider Primary Care Provider Encounter Details Date Type Department Care Team (Late st Contact Info) Description 10/10/2021 Lab Requisition [facility] Pathology & Laboratory Medicine - [facility] [address] [place] [address] Outr Resulting Lab, Provider Social [...] Associated Diagnosis Comments AFP TUMOR MARKER Routine 10/09/2021 9:50 EDT documented in this encounter Results * AFP TUMOR MARKER (10/09/2021 9:50 EDT) AFP Tumor Marker 2.5 <8.1 ng/mL 10/12/2021 9:29 EDT [facility] Comment: AFP Tumor Marker cannot be interpreted in females. ?? NOTE: Serum AFP concentrations should not be interpreted as absolute evidence for the presence or absence of malignant disease. Assayed on Siemens ADVIA Centaur XPT using chemiluminescent technology. ??Values obtained by using different assay methods cannot be used interchangeably. Blood VENOUS BLOOD / Unknown 10/09/2021 9:50 EDT 10/11/2021 17:28 EDT Provider Outr Resulting Lab CHEMISTRY & BLOOD GAS ORDERABLES [facility] [address] [place] [address] documented in this encounter Visit Diagnoses Not on filedocumented in this encounter Care Teams Cyber Security Specialist Relationship Specialty Start Date End Date Unknown, Provider, PCP - General 10/22/22 documented as of this encounter
--- OUTSIDE RECORDS SUMMARY | 2023-09-06 01:42 | XMS_ITS | Encounter Summary ---
Author Organization [facility] [place] [address] Care Team Providers Care Analog Device Designer Name Role Phone Bernadette Childs MD Primary Care Provider Encounter Details Date Type Department Care Team (Late st Contact Info) Description 01/30/2013 2:30 PM EST [place] [address] Ashley Torrez MD [facility] [place] [address] Abdominal pain, RUQ (right upper quadrant) (Primary Dx); Biliary colic Discharge Disposition: Home Social History Tobacco Use [...] Sign Reading Time Taken Comments Blood Pressure 134/85 01/30/2013 1:53 PM EST Pulse 91 01/30/2013 1:53 PM EST Temperature - - Respiratory Rate - - Oxygen Saturation - - Inhaled Oxygen Concentration - - Weight 91.2 kg (201 lb) 01/30/2013 1:53 PM EST Height 157.5 cm (5' 2) 01/30/2013 1:53 PM EST Body Mass Index 36.76 01/30/2013 1:53 PM EST documented in this encounter Progress Notes * Ashley Torrez MD - 02/03/2013 4:01 PM EST Transplant Clinic: H&P/ Pre Surgical Evaluation Date: February 03, 2013 Patient: Teresita Beltre Referring MD: Piotr Wylie PCP BERNADETTE CHILDS MD HPI: Teresita Beltre is an 47 y.o. female. She is being seen for evaluation of abnormal pain andabnormal LFTs. Ms Escalante has had RUQ pain and LFT abnormalities following an admission for percariditis in June 2011. She was also noted to have a markedly elevated GGT. Multiple imaging studies havenot identified cholelithiasis, though she has gall bladder wall thickening. She has no history of jaundice. Overall, she reports that she is not feeling well. . Patient Active Problem List Diagnosis Date Noted ??? Abdominal pain, RUQ (right upper quadrant) 02/03/2013 ??? Abnormal LFTs (liver function tests) 02/03/2013 Past Medical History Diagnosis Date ??? Diabetes mellitus ??? Pericarditis ??? Hyperlipidemia ??? Obesity ??? Anxiety ??? Depression Past Surgical History Procedure Date ??? Colonoscopy ??? Upper gastrointestinal endoscopy Family History Problem Relation Age of Onset ??? Type 1 Diabetes ??? Autoimmune Disorder History Social History ??? Marital Status: Spouse Name: N/A Number of Children: N/A ??? Years of Education: N/A Occupational History ??? Not on file. Social History Main Topics ??? Smoking status: Former Smoker ??? Smokeless tobacco: Not on file ??? Alcohol Use: No ??? Drug Use: No ??? Sexually Active: No Other Topics Concern ??? Not on file Social History Narrative ??? No narrative on file Visit Vitals: BP 134/85 Pulse 91 Ht 157.5 cm (5' 2) Wt 91.173 kg (201 lb) BMI 36.76 kg/m2 Allergies: Latex; Adhesive bandage; Amoxicillin trihydrate; Penicillins; and Sulfa (sulfonamide antibiotics) Current Meds: LORazepam (ATIVAN) 1 mg tablet; fluticasone-salmeterol (ADVAIR DISKUS) 250-50 mcg/dose diskus inhaler; furosemide (LASIX) 20 mg tablet; pantoprazole (PROTONIX) 40 mg tablet; traZODone (DESYREL) 100 mg tablet; ferrous sulfate 324 mg (65 mg iron) TbEC; FLUoxetine (PROZAC) 40 mg capsule ROS: Review of Systems Constitutional: Positive for fatigue. Respiratory: Negative for shortness of breath. Cardiovascular: Negative for leg swelling. Gastrointestinal: Positive for nausea, abdominal pain and abdominal distention. Negative for diarrhea. Genitourinary: Negative for flank pain. Psychiatric/Behavioral: Positive for dysphoric mood. Physical Exam: Subjective: Symptoms: No shortness of breath or diarrhea. Diet: She reports nausea. Objective: General Appearance: Comfortable. Vital signs: (most recent): Blood pressure 134/85, pulse 91, height 157.5 cm (5' 2), weight 91.173kg (201 lb). HEENT: Normal HEENT exam. Lungs: Normal effort. Breath sounds clear to auscultation. Heart: Normal rate. Regular rhythm. Extremities: Normal range of motion. Abdomen: Abdomen is soft and distended. Bowel sounds: Bowel sounds are normal. There is right upper quadrant and epigastric tenderness. There is a mass. Pulses: Distal pulses are intact. Imaging studies: Ultrasound 12/2012- GB wall thickening, possible pancreatic mass MRI 01/2013 - No evidence of pancreatic mass, Biliary systems is normal in caliber. Labs: 12/2013 Alk Phos 236 GGT 489 Transaminases and Bili normal Assessment: Teresita Beltre has RUQ pain and a strong family history of autoimmune disease. She LFTs are consistent with PBC and labs checked today reveal a positive ASMA which is also consistent with PBC. If is also possible that she has some element of biliary dyskinesia given her symptoms. She was also noted to have GB wall thickening on her ultrasound Plan: 1. Lap joellen with liver biopsy 2. One time consulting with hepatology as she is currently followed successfully by Dr. Wylie. . Consent: Teresita Beltre and I discussed the planned operative procedure. We discussed the risks, benefits, and alternatives including: bleeding, infection, damage to adjacent tissues, bile duct injury, persistent pain, stroke, UT, and . An operative consent was signed and placed in the medical record. MD: ASHLEY TORREZ documented in this encounter Plan of Treatment Upcoming Encounters Date Type Department Care Team (Late st Contact Info) Description 09/14/2023 11:00 AM EDT Office Visit [place] [address] Mague Johnson MD [facility] [place] [address] documented as of this encounter Procedures Procedure Name Priority Date/Time Associated Diagnosis Comments DIFFERENTIAL, AUTOMATED Routine 01/31/20 13 4:16 PM EST TYPE AND SCREEN, SDP (FUTURE SURGERY, [facility] SAME DAY PROGRAM ONLY) Routine 01/30/2013 4:16 PM EST Abdominal pain, RUQ (right upper quadrant) Biliary colic CREATININE Routine 01/30/2013 4:16 PM EST Abdominal pain, RUQ (right upper quadrant) Biliary colic HEPATITIS C ANTIBODY Routine 01/30/2013 4:16 PM EST Abdominal pain, RUQ (right upper quadrant) MITOCHONDRIAL ANTIBODY, M2 Routine 01/30/2013 4:16 PM EST Abdominal pain, RUQ (right upper quadrant) ABO/RH TYPING Routine 01/30/2013 4:16 PM EST Abdominal pain, RUQ (right upper quadrant) Biliary colic SMOOTH MUSCLE ANTIBODY Routine 3 4:16 PM EST Abdominal pain, RUQ (right upper quadrant) APTT Routine 01/30/2013 4:16 PM EST Abdominal pain, RUQ (right upper quadrant) Biliary colic PROTHROMBIN TIME Routine 01/30/2013 4:16 PM EST Abdominal pain, RUQ (right upper quadrant) Biliary colic CBC (WITH DIFF) Routine 01/30/2013 4:16 PM EST Abdominal pain, RUQ (right upper quadrant) Biliary colic ANTIBODY SCREEN Routine 01/30/2013 4:16 PM EST Abdominal pain, RUQ (right upper quadrant) Biliary colic NADER ANTIBODY SCREEN Routine 01/30/2013 4 :16 PM EST Abdominal pain, RUQ (right upper quadrant) BUN Routine 01/30/2013 4:16 PM EST Abdominal pain, RUQ (right upper quadrant) Biliary colic IGA Routine 01/30/2013 4:16 PM EST Abdominal pain, RUQ (right upper quadrant) IGM Routine 01/30/2013 4:16 PM EST Abdominal pain, RUQ (right upper quadrant) IGG Routine 01/30/2013 4:16 PM EST Abdominal pain, RUQ (right upper quadrant) ELECTROLYTES PANEL Routine 01/30/2013 4: 16 PM EST Abdominal pain, RUQ (right upper quadrant) Biliary colic LAPAROSCOPIC CHOLECYSTECTOMY WITH CHOLANGIOGRAM Routine 01/30/2013 3:09 PM EST Abdominal pain, RUQ (right upper quadrant) LAPAROSCOPIC LIVER BIOPSY Routine 01/30/2013 3:09 PM EST Abdominal pain, RUQ (right upper quadrant) documented in this encounter Results * Differential, Automated (01/30/2013 4:16 PM EST) Neutrophils % 64.4 34.0 - 71.0 % CERNER MILLENNIUM Neutr Abs (ANC) 4.07 1.50 - 6.30 x10(3)/mcL CERNER MILLENNIUM Lymphocytes % 23.9 19.0 - 53.0 % CERNER MILLENNIUM Lymphocytes Abs 1.5 1.0 - 3.6 x10(3)/mcL CERNER MILLENNIUM Monocytes % 8.5 4.0 - 13.0 % CERNER MILLENNIUM Monocyte Abs 0.5 0.2 - 1.0 x10(3)/mcL CERNER MILLENNIUM Eosinophils % 2.4 0.0 - 7.0 % CERNER MILLENNIUM Eosinophils Abs 0.2 0.0 - 0.5 x10(3)/mcL CERNER MILLENNIUM Basophils % 0.5 0.0 - 2.0 % CERNER MILLENNIUM Basophils [...] 0.05 x10(3)/mcL CERNER MILLENNIUM Blood specimen (specimen) 01/30/2013 4:16 PM EST 01/30/2013 4:23 PM EST Ashley Torrez MD HEMATOLOGY ORDERABLE S KARO RUBIN * Antibody screen (01/30/2013 4:16 PM EST) Ab Screen Interp Negative CERNER JAMESENNIUM Expires at [id number] on: [id number] CERNER MILLENNIUM Comment:Corrected from 03/16 12:00 [Unknown] on 02/02/13 11:21 by Maria Del Carmen Lino. Blood specimen (specimen) 01/30/2013 4:16 PM EST 01/30/2013 4:23 PM EST Narrative Resulting Agency Comment Spec In Lab Ashley Torrez MD BLOOD BANK LAB ORDER DENISHA KARO PENAIUM * ABO/Rh Typing (01/30/2013 4:16 PM EST) ABORH Type O Pos CERNER MILLENNIUM Blood specimen (specimen) 01/30/2013 4:16 PM EST 01/30/2013 4:23 PM EST Narrative Resulting Agency Comment Spec In Lab Ashley Torrez MD BLOOD BANK LAB ORDER DENISHA Performing Organization Address [place] Phone Number KARO PENAIUM * APTT (01/30/2013 4:16 PM EST) PTT 30 25 - 35 sec CERNER MILLENNIUM Comment: Recommended therapeutic PTT range for full dose unfractionated heparin is 80-114 seconds. Blood specimen (specimen) 01/30/2013 4:16 PM EST 01/30/2013 4:23 PM EST Narrative Resulting Agency Comment Spec In Lab Ashley Torrez MD HEMATOLOGY ORDERABLE S Performing Organization Address [facility] Phone Number KARO PENAIUM * (ABNORMAL) Prothrombin Time (01/30/2013 4:16 PM EST) PT 15.1(H) 12.0 - 15.0 sec CERNER MILLENNIUM Comment: [facility] Transfusion Committee Guidelines: INR less than 2.0, PTT less than OR equal to 43.5 seconds, or Fibrinogen greater than or equal to 100 mg/dl indicate adequate procoagulant activity for hemostasis in patients without underlying bleeding disorders. INR 1.2(H) 0.9 - 1.1 CERNER MILLENNIUM Blood specimen (specimen) 01/30/2013 4:16 PM EST 01/30/2013 4:23 PM EST Narrative Resulting Agency Comment Spec In Lab Ashley Torrez MD HEMATOLOGY ORDERABLE S Performing Organization Address [place] Co de Phone Number KARO PENAIUM * Creatinine (01/30/2013 4:16 PM EST) Creatinine 0.77 0.70 - 1.20 mg/dL [facility] Comment: Please note that the pediatric reference intervals supplied above were not validated at [facility]. Results from pediatric patients should be interpreted in conjunction to the patient's age, height and muscle mass. Estimated GFR >60 >=60 CERNER MILLENNIUM Comment: [...] internet browser. http://www.nkdep.nih.gov/lab-evaluation.shtml http://www.kidney.org/professionals/ Blood specimen (specimen) 01/30/2013 4:16 PM EST 01/30/2013 4:23 PM EST Narrative Resulting Agency Comment Spec In Lab Ashley Torrez MD CHEMISTRY ORDERABLES Performing Organization Address [place] Phone Number [facility] * (ABNORMAL) BUN (01/30/2013 4:16 PM EST) BUN 7(L) 8 - 18 mg/dL CERNER MILLENNIUM Blood specimen (specimen) 01/30/2013 4:16 PM EST 01/30/2013 4:23 PM EST Narrative Resulting Agency Comment Spec In Lab Ashley Torrez MD CHEMISTRY ORDERABLES Performing Organization Address [place] Phone Number [facility] * Electrolytes panel (01/30/2013 4:16 PM EST) Sodium 143 135 - 145 mmol/L CERNER MILLENNIUM Potassium 3.5 3.5 - 5.0 mmol/L CERNER MILLENNIUM Comment: Please note: ??Patients with WBC >100,000 may have falsely elevated Potassium levels. ??For accurate Potassium quantification in these patients send serum separator tube (gold top) for subsequent determinations. ??Contact the Clinical Chemistry Laboratory if there are any questions. Chloride 105 98 - 107 mmol/L CERNER MILLENNIUM CO2 24 22 - 31 mmol/L CERNER MILLENNIUM Anion Gap 14 5 - 15 mmol/L CERNER MILLENNIUM Blood specimen (specimen) 01/30/2013 4:16 PM EST 01/30/2013 4:23 PM EST Narrative Resulting Agency Comment Spec In Lab Ashley Torrez MD CHEMISTRY ORDERABLES Performing Organization Address [facility]/ZIP Co de Phone Number CERNER MILLENNIUM * (ABNORMAL) CBC (with Diff) (01/30/2013 4:16 PM EST) WBC 6.3 4.0 - 10.0 x10(3)/mcL CERNER MILLENNIUM RBC 5.04 3.93 - 5.22 x10(6)/mcL CERNER MILLENNIUM Hemoglobin 13.0 11.2 - 15.7 gm/dL CERNER MILLENNIUM Hematocrit 39.7 34.0 - 45.0 % CERNER MILLENNIUM MCV 78.8(L) 79.0 - 94.0 fL CERNER MILLENNIUM MCH 25.8(L) 26.6 - 32.2 pg CERNER MILLENNIUM MCHC 32.7 32.0 - 36.5 gm/dL CERNER MILLENNIUM Platelets 235 145 - 370 x10(3)/mcL CERNER MILLENNIUM RDWSD 50.7(H) 35.0 - 46.0 fL CERNER MILLENNIUM RDWCV 17.7(H) 10.9 - 14.4 % CERNER MILLENNIUM MPV 10.9 9.0 - 12.0 fL CERNER MILLENNIUM Blood specimen (specimen) 01/30/2013 4:16 PM EST 01/30/2013 4:23 PM EST Narrative Resulting Agency Comment Spec In Lab Ashley Torrez MD HEMATOLOGY ORDERABLE S Performing Organization Address [facility] Co de Phone Number KARO PENAIUM * (ABNORMAL) Smooth Muscle Antibody (01/30/2013 4:16 PM EST) Sm Muscle Ab Positive 1:20(A) Negative CERNER MILLENNIUM Comment: Test Performed by: [address] [address] Associate Professor Of Library Science: Lester Cotto III, M.D. Blood specimen (specimen) 01/30/2013 4:16 PM EST 01/31/2013 8:41 AM EST Narrative Resulting Agency Comment Spec In Lab Ashley Torrez MD IMMUNOLOGY ORDERABLE S Performing Organization Address [place] Co de Phone Number KARO PENAIUM * IgA (01/30/2013 4:16 PM EST) IgA 155 70 - 400 mg/dL CERNER MILLENNIUM Blood specimen (specimen) 01/30/2013 4:16 PM EST 01/30/2013 4:23 PM EST Narrative Resulting Agency Comment Spec In Lab Ashley Torrez MD IMMUNOLOGY ORDERABLE S Performing Organization Address [place] Phone Number CERMAYA RAMIREZENNIUM * IgG (01/30/2013 4:16 PM EST) IgG 846 700 - 1600 mg/dL CERNER MILLENNIUM Blood specimen (specimen) 01/30/2013 4:16 PM EST 01/30/2013 4:23 PM EST Narrative Resulting Agency Comment Spec In Lab Ashley Torrez MD IMMUNOLOGY ORDERABLE S Performing Organization Address [place] Phone Number CERMAYA RAMIREZENNIUM * Hepatitis C Antibody (01/30/2013 4:16 PM EST) Hepatitis C Ab Negative Negative CERNE R MILLENNIUM Comment: Please note that as of 09/26/2012, the testing methodology for this assay has changed. However there is no change in the interpretation of the results. Blood specimen (specimen) 01/30/2013 4:16 PM EST 01/30/2013 4:23 PM EST Narrative Resulting Agency Comment Spec In Lab Ashley Torrez MD IMMUNOLOGY ORDERABLE S Performing Organization Address [facility] Co de Phone Number KARO RAMIREZENNIUM * IgM (01/30/2013 4:16 PM EST) IgM 78 40 - 230 mg/dL CERNER MILLENNIUM Blood specimen (specimen) 01/30/2013 4:16 PM EST 01/30/2013 4:23 PM EST Narrative Resulting Agency Comment Spec In Lab Ashley Torrez MD IMMUNOLOGY ORDERABLE S Performing Organization Address [facility] Co de Phone Number KARO RUBIN * Mitochondrial Antibody, M2 (01/30/2013 4:16 PM EST) Mitochon Ab <0.1 <0.1 (Negative) U CERNER MILLENNIUM Comment: Test Performed by: [address] [address] Associate Professor Of Library Science: Lester Cotto III, M.D. Blood specimen (specimen) 01/30/2013 4:16 PM EST 01/31/2013 8:41 AM EST Narrative Resulting Agency Comment Spec In Lab Ashley Torrez MD IMMUNOLOGY ORDERABLE S Performing Organization Address [place] Co de Phone Number KARO PENAIUM * NADER (01/30/2013 4:16 PM EST) NADER Neg Neg KARO RAMIREZENNIUM Blood specimen (specimen) 01/30/2013 4:16 PM EST 01/31/2013 8:13 AM EST Narrative Resulting Agency Comment Spec In Lab Ashley Torrez MD IMMUNOLOGY ORDERABLE S Performing Organization Address [facility] Co de Phone Number KARO RUBIN documented in this encounter Visit Diagnoses Diagnosis Abdominal pain, RUQ (right upper quadrant)- Primary Abdominal pain, right upper quadrant Biliary colic Calculus of gallbladder without mention of cholecystitis or obstruction documented in this encounter Care Teams Analog Device Designer Relationship Specialty Start Date End Date Bernadette Childs MD [address] [facility] [address] [place] [address] PCP - General 04/03/12 07/27/20 documented as of this encounter
--- OUTSIDE RECORDS SUMMARY | 2023-09-06 01:42 | XMS_ITS | Encounter Summary ---
Author Organization [facility] Address [address] [place] [address] Care Team Providers Care Digital Marketing Apprentice Name Role Phone Unknown, Provider Primary Care Provider Encounter Details Date Type Department Care Team (Late st Contact Info) Description 01/15/2021 Lab Requisition [facility] Pathology & Laboratory Medicine - [place] [facility] [address] [place] [address] Outr Resulting Lab, Provider Social History Tobacco [...] Procedure Name Priority Date/Time Associated Diagnosis Comments ZZCOVID-19 TEST [facility] PCR Today 01/14/2021 14:00 EST COVID-19 TESTING Routine 01/14/2021 14:0 0 EST documented in this encounter Results * COVID-19 TEST [facility] LAB PCR (01/14/2021 14:00 EST) Swab 01/14/2021 14:0 0 EST 01/16/2021 15:43 EST Provider Outr Resulting Lab MICROBIOLOGY - GENERAL ORDERABLES [facility] [address] [place] [address] * COVID-19 TESTING (01/14/2021 14:00 EST) COVID-19 rt-PCR Result Negative Negative 01/17/2021 11:00 EST [facility] Comment: This test has not been FDA cleared or approved. This test has been authorized by FDA under an EUA for use by authorized laboratories. This test has been authorized only for detection of nucleic acid from 2019-nCoV, not for any other viruses or pathogens. This test is only authorized for the duration of the declaration that circumstances exist justifying the authorization of emergency use of in vitro diagnostic tests for detection and/or diagnosis of 2019-nCoV under section 564(b)(1) of Act, 21 U.S.C ?? 360bbb-3(b) (1), unless the authorization is terminated or revoked sooner. Negative results do not preclude 2019-nCoV infection and should not be used as the sole basis for treatment or other patient management decisions. Negative results must be combined with clinical observations, patient history, and epidemiological information. Testing was performed using the angelic SARS-CoV-2 assay ([employer] on the Angelic 6800 System Performing Lab Angelic [address] [facility] Lab 01/17/2021 11:00 EST [facility] Swab 01/14/2021 14:0 0 EST 01/16/2021 15:43 EST Provider Outr Resulting Lab MICROBIOLOGY - GENERAL ORDERABLES [facility] [address] [place] [address] documented in this encounter Visit Diagnoses Not on filedocumented in this encounter Care Teams Digital Marketing Apprentice Relationship Specialty Start Date End Date Unknown, Provider, PCP - General 10/22/22 documented as of this encounter
--- OUTSIDE RECORDS SUMMARY | 2023-09-06 01:42 | XMS_ITS | Encounter Summary ---
Author Organization [facility] Address [facility] [place] [address] Care Team Providers Care Concrete Stone Fabricator Name Role Phone Bernadette Childs MD Primary Care Provider [phone] Reason for Visit * Reason Comments Medication Refill Encounter Details Date Type Department Care Team (Late st Contact Info) Description 06/29/2012 [place] [address] Oh Dumont MD [facility] [place] [address] Social History Tobacco Use Types Packs/Day Years Used Date Smoking Tobacco: Former Sex and Gender Information Value Date Recorded Sex Assigned at Female 07/09/2020 7:39 PM EDT Gender Identity Female 07/09/2020 7:39 PM EDT Sexual Orientation Straight 08/27/2020 7: 10 PM EDT documented as of this encounter Miscellaneous Notes * Telephone Encounter - Nona Sommer RN - 06/30/2012 2:02 PM EDT Called in Lorazepam rx to [facility] in [place], [place]. documented in this encounter Plan of Treatment Upcoming Encounters Date Type Department Care Team (Late st Contact Info) Description 09/14/2023 11:00 AM EDT Office [place] [address] Mague Johnson MD [facility] [place] [address] documented as of this encounter Visit Diagnoses Not on filedocumented in this encounter Care Teams Concrete Stone Fabricator Relationship Specialty Start Date End Date Bernadette Childs MD [address] [place] [address] PCP - General 04/03/12 07/27/20 documented as of this encounter
--- OUTSIDE RECORDS SUMMARY | 2023-09-06 01:42 | XMS_ITS | Encounter Summary ---
[place] [address] Care Team Providers Care Coater Associate Name Role Phone Bernadette Childs MD Primary Care Provider [phone] Reason for Visit * Reason Onset Date Comments Other 09/04/2012 lorazepam Encounter Details Date Type Department Care Team (Late st Contact Info) Description 09/04/2012 Telephone [place] [address] Nona Sommer RN Other (lorazepam) Social History Tobacco Use Types Packs/Day Years Used Date Smoking Tobacco: Former Sex and Gender Information Value Date Recorded Sex Assigned at Female 07/09/2020 7:39 PM EDT Gender Identity Female 07/09/2020 7:39 PM EDT Sexual Orientation Straight 08/27/2020 7: 10 PM EDT documented as of this encounter Miscellaneous Notes * Telephone Encounter - Oh Dumont MD - 09/04/2012 4:39 PM EDT yes * Telephone Encounter - Oh Dumont MD - 09/04/2012 3:31 PM EDT Yes renew lorazepam * Telephone Encounter - Nona Sommer RN - 09/04/2012 1:45 PM EDT Teresita called requesting a renewal of her lorazepam. She would like it sent to [facility] in [place]. documented in this encounter Plan of Treatment Upcoming Encounters Date Type Department Care Team (Late st Contact Info) Description 09/14/2023 11:00 AM EDT Office [place] [address] Mague Johnson MD [facility] [place] [address] documented as of this encounter Visit Diagnoses Not on filedocumented in this encounter Care Teams Coater Associate Relationship Specialty Start Date End Date Bernadette Childs MD [address] [place] [address] [address] [place] [address] PCP - General 04/03/12 07/27/20 documented as of this encounter
--- OUTSIDE RECORDS SUMMARY | 2023-09-06 01:42 | XMS_ITS | Encounter Summary ---
Author Organization [facility] Address [facility] [place] [address] Care Team Providers Care Safety Deposit Supervisor Name Role Phone Bernadette Childs MD Primary Care Provider [phone] Reason for Visit * Reason Onset Date Comments Medication Refill 04/20/2012 Encounter Details Date Type Department Care Team (Late st Contact Info) Description 04/20/2012 [place] [address] Oh Dumont MD [facility] [place] [address] Social History Tobacco Use Types Packs/Day Years [...] 11:00 AM EDT Office [place] [id number] Mague Johnson MD [facility] [address] documented as of this encounter Visit Diagnoses Not on filedocumented in this encounter Care Teams Safety Deposit Supervisor Relationship Specialty Start Date End Date Bernadette Childs MD [address] [facility] [address] [place] [address] PCP - General 04/03/12 07/27/20 documented as of this encounter
--- OUTSIDE RECORDS SUMMARY | 2023-09-06 01:42 | XMS_ITS | Encounter Summary ---
[place] [address] Care Team Providers Care Driver Wheelchair Name Role Phone Bernadette Childs MD Primary Care Provider [phone] Reason for Visit * Reason Onset Date Comments Other 11/02/2012 questions Encounter Details Date Type Department Care Team (Late st Contact Info) Description 11/02/2012 Telephone [place] [id number] Nona Sommer RN Other (questions) Social History Tobacco Use Types Packs/Day Years Used Date Smoking Tobacco: Former Sex and Gender Information Value Date Recorded Sex Assigned at Female 07/09/2020 7:39 PM EDT Gender Identity Female 07/09/2020 7:39 PM EDT Sexual Orientation Straight 08/27/2020 7: 10 PM EDT documented as of this encounter Miscellaneous Notes * Telephone Encounter - Nona Sommer RN - 11/03/2012 9:46 AM EDT Ms. Beltre has an established relationship with Dr. Childs. It is more important that she havea good relationship with her PCP than she have immediate evaluation of her iron deficiency. I wouldrecommend that she either discuss the issue with Dr. Childs or seek out a new PCP either locallyor at [facility]; at [facility], If she wishes to do the latter, she can call [phone] and get the number for immediate PCP assignment. Oh Dumont Called Teresita and left message on her cell phone that Dr. Dumont would prefer she discuss iron deficiency with Dr. Childs and obtain referrals from her. Also let her know that a good pcp/patient relationship is important and if she is not comfortable with Dr. Childs she should seek a new pcp, either locally or here at [facility]. Asked her to call back if she has any questions or concerns. * Telephone Encounter - Nona Sommer RN - 11/02/2012 3:52 PM EDT Teresita is calling because she has not heard from Dr. Childs. Last week she and I discussed following up with her about having a possible colonoscopy and/or endoscopy to look for any possible signs of bleeding causing her iron to be so low. She is reluctant to discuss with Dr. Childs because shewould prefer to go to another facility rather than [facility] if further testing needs to be done. She would prefer to see Dr. Pham at [facility] if Dr. Dumont was willing to refer her. Told her I was not sure if he would do this since the plan was for her to have this handled by Dr. Childs, but would ask him. She says Dr. Childs is on the [facility] board so refers for everything to be done there. She says her feet have begun to swell again. She has not gotten the BETI stockings yet,advised her to do this sooner rather than later. She says she has been elevating her feet. documented in this encounter Plan of Treatment Upcoming Encounters Date Type Department Care Team (Late st Contact Info) Description 09/14/2023 11:00 AM EDT Office [place] [address] [facility] [place] [address] documented as of this encounter Visit Diagnoses Not on filedocumented in this encounter Care Teams Driver Wheelchair Relationship Specialty Start Date End Date Bernadette Childs MD [address] [facility] [address] [place] [address] PCP - General 04/03/12 07/27/20 documented as of this encounter
--- OUTSIDE RECORDS SUMMARY | 2023-09-06 01:42 | XMS_ITS | Encounter Summary ---
Author Organization [facility] Address [facility] [place] [address] Care Team Providers Care Liner Machine Operator Helper Name Role Phone Bernadette Childs MD Primary Care Provider [phone] Encounter Details Date Type Department Care Team (Late st Contact Info) Description 01/24/2013 Orders Only [place] [address] Octaviano Torrez MD [facility] [place] [address] Social History Tobacco Use Types Packs/Day Years [...] 11:00 AM EDT Office [place] [phone] Mague Johnson MD [facility] [place] [address] Pending Results Name Type Priority Associated Diagnoses Date /Time Film Library- Storage only MR Abdomen Imaging Routine 01/24/2013 6:48 PM EST documented as of this encounter Visit Diagnoses Not on filedocumented in this encounter Care Teams Liner Machine Operator Helper Relationship Specialty Start Date End Date Bernadette Childs MD [address] [facility] 1 [place] [address] PCP - General 04/03/12 07/27/20 documented as of this encounter
--- OUTSIDE RECORDS SUMMARY | 2023-09-06 01:42 | XMS_ITS | Encounter Summary ---
[place] [address] Care Team Providers Care Heavy Duty Mechanic Farm Equipment Name Role Phone Bernadette Childs MD Primary Care Provider [phone] Reason for Visit * Reason Onset Date Comments Other 10/27/2012 questions Encounter Details Date Type Department Care Team (Late st Contact Info) Description 10/27/2012 Tele[place] [address] Nona Sommer RN Other (questions) Social History Tobacco Use Types Packs/Day Years Used Date Smoking Tobacco: Former Sex and Gender Information Value Date Recorded Sex Assigned at Female 07/09/2020 7:39 PM EDT Gender Identity Female 07/09/2020 7:39 PM EDT Sexual Orientation Straight 08/27/2020 7: 10 PM EDT documented as of this encounter Miscellaneous Notes * Telephone Encounter - Nona Sommer RN - 10/27/2012 10:03 AM EDT Teresita called with more questions. First off she wanted to know if she needed an rx for compression stockings, told her no. Secondly, she wanted to know if her kidney and liver function are stable, told her yes. She also wanted explanations of the alkaline phosphatase and CRP. Lastly, she wanted to know what follow up she should be getting. She does not feel that Dr. Childs knows what she shoulddo next. Told her that she could discuss a referral to gastroenterology for upper endoscopy and colonoscopy to try and pinpoint if any bleeding is occurring internally. She verbalized understanding of all information and apologized for having so many questions. Told her she can call anytime with que stions or concerns. documented in this encounter Plan of Treatment Upcoming Encounters Date Type Department Care Team (Late st Contact Info) Description 09/14/2023 11:00 AM EDT Office [place] [address] Mague Johnson MD [facility] [place] [address] documented as of this encounter Visit Diagnoses Not on filedocumented in this encounter Care Teams Heavy Duty Mechanic Farm Equipment Relationship Specialty Start Date End Date Bernadette Childs MD [address] [facility] [address] [place] [address] PCP - General 04/03/12 07/27/20 documented as of this encounter
--- OUTSIDE RECORDS SUMMARY | 2023-09-06 01:43 | XMS_ITS | Encounter Summary ---
Author Organization [facility] Address [address] [place] [address] Care Team Providers Care Sales Operations Associate Name Role Phone Unknown, Provider Primary Care Provider Encounter Details Date Type Department Care Team (Late st Contact Info) Description 04/20/2019 Lab Requisition [facility] Pathology & Laboratory Medicine - [address] [address] Unknown, Provider, Social History Tobacco Use Types Packs/Day Years Used Date Smoking Tobacco: Never Assessed Sex and Gender Information Value Date Recorded Sex Assigned at Not on file Gender Identity Not on file Sexual Orientation Not on file documented as of this encounter Plan of Treatment Not on file documented as of this encounter Procedures Procedure Name Priority Date/Time Associated Diagnosis Comments HSV (HERPES SIMPLEX VIRUS) MOLECULAR DETECTION, PCR Routine 04/20/2019 11:12 EST documented in this encounter Results * (ABNORMAL) HERPES SIMPLEX VIRUS MOLECULAR DETECTION, PCR (04/20/2019 11:12 EST) Herpes Simplex Virus Molecular Detection 1, PCR Positive(A) Negative 04/21/2019 11:29 EST [facility] Herpes Simplex Virus Molecular Detection 2, PCR Negative Negative 04/21/2019 11:29 EST [facility] Swab ENTIRE LIP / Unknown Swab / Unknown 04/20/2019 11:12 EST 04/20/2019 15:54 EST Provider Unknown MICROBIOLOGY - GENER AL ORDERABLES [facility] [address] [place] [address] documented in this encounter Visit Diagnoses Not on filedocumented in this encounter Care Teams Sales Operations Associate Relationship Specialty Start Date End Date Unknown, Provider, PCP - General 10/22/22 documented as of this encounter
--- OUTSIDE RECORDS SUMMARY | 2023-09-06 01:43 | XMS_ITS | Encounter Summary ---
Author Organization [facility] Address [address] [place] [address] Care Team Providers Care Stone Cutter Name Role Phone Unknown, Provider Primary Care Provider [phone] Encounter Details Date Type Department Care Team (Late st Contact Info) Description 01/31/2019 Lab Requisition [facility] Pathology & Laboratory Medicine - [facility] [address] [place] [address] Bernadette Childs MD [address] [place] [id number] Encounter for other general examination Social History Tobacco Use Types Packs/Day Years Used Date Smoking Tobacco: Never Assessed Sex and Gender Information Value Date Recorded Sex Assigned at Not on file Gender Identity Not on file Sexual Orientation Not on file documented as of this encounter Plan of Treatment Not on file documented as of this encounter Procedures Procedure Name Priority Date/Time Associated Diagnosis Comments PAP TEST Today 01/30/2019 14:30 EST Encounter for other general examination HPV DNA DETECTION WITH GENOTYPING, PCR Today 01/30/2019 14:30 EST Encounter for other general examination documented in this encounter Results * HUMAN PAPILLOMAVIRUS (HPV) DETECTION-HIGH RISK TYPES (01/30/2019 14:30 EST) HPV other High Risk types, PCR Negative Negative 02/05/2019 14:47 EST [facility] Comment:No E6 or E7 mRNA is detected from HPV types 16,18,31,33,35,39,45,51,52,56,58,59,66, and 68 by physician primary care sports medicine mediated amplification. Papanicolaou smear specimen (specimen) CERVIX UTERI STRUCTURE / Unknown 01/30/2019 14:30 EST 02/02/2019 13:16 EST Bernadette Childs MD MICROBIOLOGY - GENE RAL ORDERABLES [facility] [address] [place] [address] * PAP TEST (01/30/2019 14:30 EST) Specimens A. 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 Reactive cellular changes associated with inflammation present (includes repair). 02/05/2019 14:47 [facility] Attestation . By the signature below, the attending physician certifies that they have personally conducted a gross and/or microscopic examination of the described specimens and rendered or confirmed the above diagnosis. 02/05/2019 14:47 [facility] at 1447 Clinical History NONE 02/06/20 19 14:47 [facility] HPV The result for the Human Papillomavirus (HPV) Detection-High Risk Types is Negative. No E6 or E7 mRNA is detected from HPV types 16,18,31,33,35,39 ,45,51,52,56,58,5 9,66, and 68 by physician primary care sports medicine mediated amplification.Michelle ting was performed on specimen [id number] and was resulted on 02/05/2019 1444 EST by DOUG, LAB INSTRUMENT RESULTS IN 02/05/2019 14:47 [facility] Resident/Fellow: Poli Braxton DO 02/05/2019 14:47 [facility] Scanned Images 02/05/2019 14:47 [facility] Papanicolaou smear specimen (specimen) CERVIX UTERI STRUCTURE / Unknown 01/30/2019 14:30 EST 01/31/2019 9:57 EST Bernadette Childs MD PATHOLOGY ORDERABLE S [facility] [address] [place] [address] documented in this encounter Visit Diagnoses Diagnosis Encounter for other general examination documented in this encounter Care Teams Stone Cutter Relationship Specialty Start Date End Date Unknown, Provider, PCP - General 10/22/22 documented as of this encounter
--- OUTSIDE RECORDS SUMMARY | 2023-09-06 01:43 | XMS_ITS | Encounter Summary ---
Author Organization [facility] Address [address] [place] [address] Care Team Providers Care Pilot Captain Name Role Phone Unknown, Provider Primary Care Provider Encounter Details Date Type Department Care Team (Late st Contact Info) Description 12/11/2020 Lab Requisition [facility] Pathology & Laboratory Medicine - [facility] [address] [place] [address] Outr Resulting Lab, Provider Social [...] Associated Diagnosis Comments AFP TUMOR MARKER Routine 12/10/2020 10:3 0 EDT documented in this encounter Results * AFP TUMOR MARKER (12/10/2020 10:30 EDT) AFP Tumor Marker 2.6 <8.1 ng/mL 12/12/2020 9:30 EDT [facility] Comment: AFP Tumor Marker cannot be interpreted in females. ?? NOTE: Serum AFP concentrations should not be interpreted as absolute evidence for the presence or absence of malignant disease. Assayed on Siemens ADVIA Centaur XPT using chemiluminescent technology. ??Values obtained by using different assay methods cannot be used interchangeably. Blood VENOUS BLOOD / Unknown 12/10/2020 10:30 EDT 12/11/2020 16:56 EDT Provider Outr Resulting Lab CHEMISTRY & BLOOD GAS ORDERABLES [facility] [address] [place] [address] documented in this encounter Visit Diagnoses Not on filedocumented in this encounter Care Teams Pilot Captain Relationship Specialty Start Date End Date Unknown, Provider, PCP - General 10/22/22 documented as of this encounter
--- OUTSIDE RECORDS SUMMARY | 2023-09-06 01:43 | XMS_ITS | Encounter Summary ---
Author Organization [facility] Address [address] [place] [address] Care Team Providers Care Soap Press Feeder Name Role Phone Unknown, Provider Primary Care Provider Encounter Details Date Type Department Care Team (Late st Contact Info) Description 05/06/2020 Lab Requisition [facility] Pathology & Laboratory Medicine - [facility] [address] [place] [address] Outr Resulting Lab, Provider Social [...] Associated Diagnosis Comments AFP TUMOR MARKER Routine 05/06/2020 8:25 EDT documented in this encounter Results * AFP TUMOR MARKER (05/06/2020 8:25 EDT) AFP Tumor Marker <2.5 <8.1 ng/mL 05/07/2020 9:30 EDT [facility] Comment: AFP Tumor Marker cannot be interpreted in females. ?? NOTE: Serum AFP concentrations should not be interpreted as absolute evidence for the presence or absence of malignant disease. Assayed on Siemens ADVIA Centaur XPT using chemiluminescent technology. ??Values obtained by using different assay methods cannot be used interchangeably. Blood VENOUS BLOOD / Unknown 05/06/2020 8:25 EDT 05/06/2020 16:28 EDT Provider Outr Resulting Lab CHEMISTRY & BLOOD GAS ORDERABLES [facility] [address] [place] [address] documented in this encounter Visit Diagnoses Not on filedocumented in this encounter Care Teams Soap Press Feeder Relationship Specialty Start Date End Date Unknown, Provider, PCP - General 10/22/22 documented as of this encounter
--- OUTSIDE RECORDS SUMMARY | 2023-09-06 01:43 | XMS_ITS | Encounter Summary ---
Author Organization [facility] Address [address] [place] [address] Care Team Providers Care Concert Promoter Name Role Phone Unknown, Provider Primary Care Provider Encounter Details Date Type Department Care Team (Late st Contact Info) Description 03/29/2020 Lab Requisition [facility] Pathology & Laboratory Medicine - [facility] [address] [place], [place] [address] Outr Resulting Lab, Provider Social History Tobacco [...] Comments ZZCOVID-19 TEST [facility] PCR Today 03/28/2020 13:50 EST COVID-19 TESTING Routine 03/28/2020 13:5 0 EST documented in this encounter Results * COVID-19 TEST [facility] PCR (03/28/2020 13:50 EST) Swab ENTIRE NASOPHARYNX / Unknown 03/28/2020 13:50 EST 03/29/2020 22:14 EST Provider Outr Resulting Lab MICROBIOLOGY - GENERAL ORDERABLES [facility] [address] [place] [address] * COVID-19 TESTING (03/28/2020 13:50 EST) COVID-19 rt-PCR Result Negative Negative 03/31/2020 16:18 EST [facility] Comment: This test has not [...] clinical observations, patient history, and epidemiological information. This test was developed and its performance characteristics determined by [facility]. It has not been cleared or approved by the US Food and Drug Administration. FDA does not require this test to go through premarket FDA review. This test is used for clinical purposes. It should not be regarded as investigational or for research. This laboratory is certified under the Clinical Laboratory Improvement Amendments (CLIA) as qualified to perform high complexity clinical laboratory testing. This test is based on the CDC COVID-19 Emergency Use Authorization (EUA) assay, with minor modification as defined by the FDA Performed on the [employer] 7 Flex RT-PCR System. Performing Lab [facility] Lab 03/31/2020 16:18 EST [facility] Swab 03/28/2020 13:5 0 EST 03/29/2020 22:14 EST Provider Outr Resulting Lab MICROBIOLOGY - GENERAL ORDERABLES [facility] [address] [place] [address] documented in this encounter Visit Diagnoses Not on filedocumented in this encounter Care Teams Concert Promoter Relationship Specialty Start Date End Date Unknown, Provider, PCP - General 10/22/22 documented as of this encounter
--- OUTSIDE RECORDS SUMMARY | 2023-09-06 01:43 | XMS_ITS | Encounter Summary ---
Author Organization [facility] Address [address] [place] [address] Care Team Providers Care Access Lead Name Role Phone Unknown, Provider Primary Care Provider Encounter Details Date Type Department Care Team (Late st Contact Info) Description 09/06/2020 Lab Requisition [facility] Pathology & Laboratory Medicine - [facility] [address] [place] [address] Outr Resulting Lab, Provider Social History Tobacco [...] Comments ZZCOVID-19 TEST [facility] PCR Today 09/05/2020 11:46 EDT COVID-19 TESTING Routine 09/05/2020 11:4 6 EDT documented in this encounter Results * COVID-19 TEST [facility] PCR (09/05/2020 11:46 EDT) Swab ENTIRE NASOPHARYNX / Unknown 09/05/2020 11:46 EDT 09/06/2020 21:25 EDT Provider Outr Resulting Lab MICROBIOLOGY - GENERAL ORDERABLES [facility] [address] [place] [address] * COVID-19 TESTING (09/05/2020 11:46 EDT) COVID-19 rt-PCR Result Negative Negative 09/07/2020 10:55 EDT [facility] Comment: This test has not [...] was performed using the angelic SARS-CoV-2 assay ([employer] on the Angelic 6800 System Performing Lab [facility] [address] [facility] Lab 09/07/2020 10:55 EDT [facility] Swab 09/05/2020 11:4 6 EDT 09/06/2020 21:25 EDT Provider Outr Resulting Lab MICROBIOLOGY - GENERAL ORDERABLES [facility] [address] [place] [address] documented in this encounter Visit Diagnoses Not on filedocumented in this encounter Care Teams Access Lead Relationship Specialty Start Date End Date Unknown, Provider, PCP - General 10/22/22 documented as of this encounter
--- OUTSIDE RECORDS SUMMARY | 2023-09-06 01:43 | XMS_ITS | Encounter Summary ---
Author Organization [facility] Address [address] [place] [address] Care Team Providers Care Side Panel Padder Name Role Phone Unknown, Provider Primary Care Provider [phone] Encounter Details Date Type Department Care Team (Late st Contact Info) Description 04/24/2019 Lab Requisition [facility] Pathology & Laboratory Medicine - [facility] [address] [place] [address] Unknown, Provider, Social History Tobacco Use Types [...] Associated Diagnosis Comments AFP TUMOR MARKER Routine 04/24/2019 10:1 4 EST documented in this encounter Results * AFP TUMOR MARKER (04/24/2019 10:14 EST) AFP Tumor Marker <2.5 <8.1 ng/mL 04/25/2019 10:31 EST [facility] Comment: AFP Tumor Marker cannot be interpreted in females. ?? NOTE: Serum AFP concentrations should not be interpreted as absolute evidence for the presence or absence of malignant disease. Assayed on Siemens ADVIA Centaur XPT using chemiluminescent technology. ??Values obtained by using different assay methods cannot be used interchangeably. Blood VENOUS BLOOD / Unknown 04/24/2019 10:14 EST 04/24/2019 20:59 EST Provider Unknown CHEMISTRY & BLOOD GA S ORDERABLES [facility] [address] [place] [address] documented in this encounter Visit Diagnoses Not on filedocumented in this encounter Care Teams Side Panel Padder Relationship Specialty Start Date End Date Unknown, Provider, PCP - General 10/22/22 documented as of this encounter
--- OUTSIDE RECORDS SUMMARY | 2023-09-06 01:43 | XMS_ITS | Encounter Summary ---
Author Organization [facility] Address [address] [place] [address] Care Team Providers Care Cattle Dipper Name Role Phone Unknown, Provider Primary Care Provider [phone] Encounter Details Date Type Department Care Team (Late st Contact Info) Description 01/08/2021 Lab Requisition [facility] Pathology & Laboratory Medicine - [facility] [address] [place] [address] Outr Resulting Lab, Provider Social History Tobacco [...] Comments ZZCOVID-19 TEST [facility] PCR Today 01/08/2021 10:40 EST COVID-19 TESTING Routine 01/08/2021 10:4 0 EST documented in this encounter Results * COVID-19 TEST [facility] PCR (01/08/2021 10:40 EST) Swab 01/08/2021 10:4 0 EST 01/08/2021 22:31 EST Provider Outr Resulting Lab MICROBIOLOGY - GENERAL ORDERABLES [facility] [address] [place] [address] * COVID-19 TESTING (01/08/2021 10:40 EST) COVID-19 rt-PCR Result Negative Negative 01/09/2021 11:21 EST [facility] Comment: This test has not [...] clinical observations, patient history, and epidemiological information. Performed on the [employer] instrument Performing Lab [facility] Lab 01/09/2021 11:21 EST [facility] Swab 01/08/2021 10:4 0 EST 01/08/2021 22:31 EST Provider Outr Resulting Lab MICROBIOLOGY - GENERAL ORDERABLES [facility] [address] [place] [address] documented in this encounter Visit Diagnoses Not on filedocumented in this encounter Care Teams Cattle Dipper Relationship Specialty Start Date End Date Unknown, Provider, PCP - General 10/22/22 documented as of this encounter
--- NOTE | 2023-09-06 07:55 | DI.US_ITS ---
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 COMPARISON: CT CT RENAL COLIC WO from 03/08/2022 US US ABDOMEN LIMITED from 03/14/2023 FINDINGS: There is no ascites evident. LIVER: The liver is again noted be hyperechoic indicating fatty parenchymal change. There are no dis crete focal hepatic lesions evident. No obvious dilated intrahepatic ducts. GALLBLADDER/BILIARY: Gallbladder is again noted be surgically absent. The common hepatic duct isnot dilated, measuring 4-5mm at the level of laeksandar hepatis. PANCREAS: There is no evidence of pancreatic mass nor dilatation of the pancreatic duct. RIGHT KIDNEY:No evidence of solid mass, calculus, nor hydronephrosis. No cortical cysts evident. IMPRESSION: 1. Compared to prior ultrasound examination of February 2023 the gallbladder is again noted be surgic ally absent. There is no significant dilatation of the biliary tree 2. Hepatic steatosis again noted. Liver size is normal and there are no discrete focal hepatic lesi ons. 3. There is no ascites. DATA REPOSITORY:
== END ==
PROVIDERS: PCP Nurse Practitioner Family; Visit Provider Nurse Practitioner Family
DX: K74.60 Unspecified cirrhosis of liver (principal)
CPT/HCPCS: 76705

== ENCOUNTER 2023-09-20 15:35 | Outpatient (REF) | payer MEDICARE, MEDICAID, SELFPAY ==
[2023-09-20 21:22] LABS: Bilirubin Negative (Negative); Blood Negative (Negative); Clarity Clear (Clear); Glucose 500 mg/dL (Negative); Ketones Negative (Negative); Leukocyte Esterase Negative (Negative); Nitrite Negative (Negative); Urobilinogen 0.2 mg/dL (Up to 0.2); pH 5.5 (5-8)
[2023-09-20 22:22] LABS: COMMENT (LAB VIEW ONLY) 64.43 mg/dL; Microalb ug/mg Crea 47.6 ug/mg Cr
== END 2023-09-20 15:36 | disposition home or self-care (01) ==
LOC: NCHCN 15:35
PROVIDERS: PCP Nurse Practitioner Family; Visit Provider Nurse Practitioner Family
DX: I10 Essential (primary) hypertension (principal); R82.998 Other abnormal findings in urine
CPT/HCPCS: 81003; 82043; 82570

== ENCOUNTER 2023-11-16 16:01 | Outpatient (CLI) | payer MEDICARE, MEDICAID, SELFPAY ==
--- NOTE | 2023-11-16 | DI.RAD_ITS ---
Exam(s) XR CHEST 2V PA LATERAL EXAM: XR CHEST 2V PA LATERAL CLINICAL HISTORY: R05.3 Chronic cough. TECHNIQUE: 2D digital imaging was performed. COMPARISON: CR XR CHEST 2V PA LATERAL from 09/18/2020 CR XR PORTABLE CHEST AP from 08/10/2021 FINDINGS: 2 views: Sternotomy wires again noted. Heart size is normal. The mediastinum is not widened. Right lung is clear. There is atelectasis or probable scarring in the lower left lung as this is unc hanged from July 2021 and possibly related to the prior surgery. No pleural effusions. No pulmonary edema. IMPRESSION: Platelike atelectasis versus scarring in the left lung base in this patient has had previous sternoto my. No evidence of pulmonary edema. DATA REPOSITORY: RADIATION DOSE DELIVERED:
--- NOTE | 2023-11-16 16:22 | DI.VRAD_ITS ---
PROCEDURE INFORMATION: Exam: XR Chest Exam date and time: 11/16/2023 4:03 PM Age: 58 years old Clinical indication: Chronic cough TECHNIQUE: Imaging protocol: Radiologic exam of the chest. Views: 2 views. COMPARISON: CR XR PORTABLE CHEST AP 08/10/2021 12:52 PM FINDINGS: Lungs: Clear lungs. Pleural spaces: No pneumothorax. No sizable pleural effusion. Heart/Mediastinum: No cardiomegaly. Bones/joints: Sternotomy. IMPRESSION: Clear lungs. Dictated and Authenticated by: Jaime Benitez MD. Ordering:KATIUSKA Colón MD
== END 2023-11-16 16:21 ==
LOC: DI 16:03
PROVIDERS: PCP Nurse Practitioner Family; Visit Provider Physician Assistant Medical
DX: J98.11 Atelectasis (principal)
CPT/HCPCS: 71046

== ENCOUNTER 2023-12-22 17:39 | Outpatient (REF) | payer MEDICARE, MEDICAID, SELFPAY ==
[2023-12-22 22:24] LABS: Abs Immature Grans 0.04 10^3/uL (0.0-0.06); Absolute Basophil Count 0.06 10^3/uL (0.0-0.2); Absolute Eosinophil Count 0.11 10^3/uL (0.0-0.7); Absolute Lymphocyte Count 3.91 10^3/uL (1.2-3.4); Absolute Monocyte Count 0.68 10^3/uL (0.1-0.8); Absolute Neutrophil Count 5.61 10^3/uL (1.2-6.7); Basophils % 0.6 %; Eosinophils % 1.1 %; HCT 48.5 % (36.0-46.0); HGB 16.4 g/dL (11.2-15.7); Immature Grans % 0.4 %; Lymphocytes % 37.6 %; MCH 29.3 pg (27.0-33.0); MCHC 33.8 % (32.0-36.0); MCV 87 fL (80-95); MPV 10.6 fL (8.0-11.0); Monocytes % 6.5 %; Neutrophils % 53.8 %; Platelet Count 320 10^3/uL (130-400); RBC 5.59 10^6/uL (3.93-5.22); RDW 14.8 % (11.7-14.6); RDW-SD 47.5 fL; WBC 10.41 10^3/uL (4.4-10.8)
[2023-12-22 22:42] LABS: ALT 25 U/L (14-59); AST 16 U/L (15-37); Albumin 4.1 g/dL (3.4-5.0); Alkaline Phosphatase 145 U/L (46-116); Anion Gap 9.5 mmol/L (3-11); BUN 17 mg/dL (7-18); Bilirubin, Total 0.72 mg/dL (0.2-1.0); CO2 24.5 mmol/L (21.0-32.0); CREATININE 0.9 mg/dL (0.55-1.02); Calcium 9.7 mg/dL (8.5-10.1); Chloride 106 mmol/L (98-107); Estimated GFR 74.57 (mL/min/1.73m2); Glucose 99 mg/dL (74-106); Magnesium 1.9 mg/dL (1.8-2.4); Potassium 4.3 mmol/L (3.5-5.1); Sodium 140 mmol/L (136-145)
[2023-12-22 22:53] LABS: GGT 63 U/L
[2023-12-23 19:43] LABS: AFP Tumor Marker <2.5 ng/mL (<8.1)
== END 2023-12-22 17:40 | disposition home or self-care (01) ==
LOC: NCHCN 17:39
PROVIDERS: PCP Nurse Practitioner Family; Visit Provider Nurse Practitioner Family
DX: K74.60 Unspecified cirrhosis of liver (principal)
CPT/HCPCS: 80053; 82105; 82977; 83735; 85025

== ENCOUNTER 2024-03-27 15:25 | Outpatient (REF) | payer MEDICARE, SELFPAY ==
--- NOTE | 2024-03-27 12:30 | PAPFT_PTH ---
PATIENT: Teresita Fernández LOC: [facility]#:[id number] AGE/SX: 58/F ROOM: RE03/27/[address]: Noemi Sharma : 1965 BED: DIS: 03/27/2024 SPEC #: [id number] RECD: 03/27/24 17:47 STATUS: JAVIER REClarence #: [id number] ALIX: 03/27/24 12:[address]: Noemi Sharma DEPT: [facility] Cytology RECD BY: Gabrielle Hamm Tissues: 1 - CX/ENDOCX FOR PAP SMEARS Procedures: PAP THIN PREP/[facility] Screening HPV DNA PROBE Comments: [id number] (HPV 16 & 18/45)
== END 2024-03-27 15:26 | disposition home or self-care (01) ==
LOC: NCHCN 15:25
PROVIDERS: PCP Nurse Practitioner Family; Visit Provider Nurse Practitioner Family
DX: Z12.4 Encounter for screening for malignant neoplasm of cervix (principal)
CPT/HCPCS: 88142; 87624

== ENCOUNTER 2024-05-28 02:07 | Outpatient (CLI) | payer MEDICARE, MEDICAID, SELFPAY ==
--- NOTE | 2024-05-28 | DI.US_ITS ---
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 COMPARISON: CT CT RENAL COLIC WO from 03/08/2022 US US ABDOMEN LIMITED from 09/06/2023 FINDINGS: LIVER: Normal size. Mildly increased echogenicity consistent with mild steatosis. Echogenicity. No focal liver lesions are seen. GALLBLADDER: Cholecystectomy. BILIARY SYSTEM: No intrahepatic or extrahepatic biliary ductal dilation. KIDNEY: The right kidney is normal in size. No evidence of renal calculi. No evidence of hydronephros is. No renal mass or cyst identified. PANCREAS: Normal where visualized. ABDOMINAL AORTA AND IVC: Visualized portions normal caliber. ASCITES: None seen. IMPRESSION: Nor mild hepatic steatosis. No focal liver lesions. Cholecystectomy. No biliary dilatation. DATA REPOSITORY:
--- NOTE | 2024-05-28 | DI.MAMMO_ITS ---
Exam(s) MAMMO SCREENING EXAM: MAMMO SCREENING CLINICAL HISTORY: Screening, Z12.31 TECHNIQUE: Mammograms were interpreted according to the usual protocol including computer analysis w [employer] CAD system, tomosynthesis and C-view imaging. COMPARISON: 2016 through 2022 FINDINGS: The breasts are composed of mainly fatty density , Breast Density category A. No suspicious masses or suspicious microcalcifications are seen. No skin thickening or abnormal axillary lymph nodes are seen. There has been no significant change from prior exams. IMPRESSION: BI-RADS Category 1, Negative mammogram Yearly screening mammography is recommended. Breast Density - Category A, fatty density. A negative radiographic report should not delay biopsy if a dominant or clinically suspicious mass is present. Up to ten percent of cancers are not identified on mammography. A negative report may reinforce clinical impression. Adenosis and dense breasts may obscure an underlying neoplasm. False positive reports average 6 to 10%. Patient will receive a letter notifying them of these results.
== END 2024-05-28 02:27 ==
PROVIDERS: PCP Nurse Practitioner Family; Visit Provider Nurse Practitioner Family
DX: Z12.31 Encounter for screening mammogram for malignant neoplasm of breast (principal)
CPT/HCPCS: 77063; 77067; 76705

== ENCOUNTER 2024-06-19 12:31 | Outpatient (REF) | payer MEDICARE, MEDICAID, SELFPAY ==
[2024-06-19 15:35] LABS: Abs Immature Grans 0.04 10^3/uL (0.0-0.06); Absolute Basophil Count 0.05 10^3/uL (0.0-0.2); Absolute Eosinophil Count 0.11 10^3/uL (0.0-0.7); Absolute Lymphocyte Count 2.72 10^3/uL (1.2-3.4); Absolute Monocyte Count 0.64 10^3/uL (0.1-0.8); Absolute Neutrophil Count 6.47 10^3/uL (1.2-6.7); Basophils % 0.5 %; Eosinophils % 1.1 %; HCT 49.2 % (36.0-46.0); HGB 15.9 g/dL (11.2-15.7); Immature Grans % 0.4 %; Lymphocytes % 27.1 %; MCH 29.9 pg (27.0-33.0); MCHC 32.3 % (32.0-36.0); MCV 93 fL (80-95); MPV 10.6 fL (8.0-11.0); Monocytes % 6.4 %; Neutrophils % 64.5 %; Platelet Count 307 10^3/uL (130-400); RBC 5.32 10^6/uL (3.93-5.22); RDW 14.3 % (11.7-14.6); WBC 10.03 10^3/uL (4.4-10.8)
[2024-06-19 15:45] LABS: Prothrombin Time 9.9 sec (9.1-11.1)
[2024-06-19 15:52] LABS: Hemoglobin A1C 7.5 % (<5.7)
[2024-06-19 16:06] LABS: Bilirubin Negative (Negative); Blood Negative (Negative); Clarity Clear (Clear); Glucose >=1000 mg/dL (Negative); Ketones Negative (Negative); Leukocyte Esterase Negative (Negative); Nitrite Negative (Negative); Specific Gravity 1.015 (1.005-1.025); Urobilinogen 0.2 mg/dL (Up to 0.2); pH 5.5 (5-8)
[2024-06-19 16:27] LABS: Bacteria Rare HPF (Negative); C & S Indicated? No; Casts Negative LPF (Negative); Crystals Negative HPF (Negative); Epithelial Cells Few HPF (Negative); Mucus Negative (Negative); RBC 0-2 HPF (0-2); WBC 0-2 HPF (0-5)
[2024-06-19 16:33] LABS: ALT 31 U/L (14-59); AST 21 U/L (15-37); Albumin 3.9 g/dL (3.4-5.0); Alkaline Phosphatase 159 U/L (46-116); Anion Gap 11.5 mmol/L (3-11); BUN 14 mg/dL (7-18); Bilirubin, Total 0.7 mg/dL (0.2-1.0); CO2 27.5 mmol/L (21.0-32.0); CREATININE 0.9 mg/dL (0.55-1.02); Calcium 9.7 mg/dL (8.5-10.1); Chloride 104 mmol/L (98-107); Glucose 149 mg/dL (74-106); Potassium 5.2 mmol/L (3.5-5.1); Sodium 143 mmol/L (136-145); Total Protein 7.2 g/dL (6.4-8.2); Vitamin B12 1208 pg/mL (193-986); Vitamin D 25 Total 47 ng/mL (30-100)
[2024-06-19 16:33] LABS: COMMENT (LAB VIEW ONLY) 82.57 mg/dL; Microalb ug/mg Crea 8.6 ug/mg Cr
[2024-06-19 16:50] LABS: GGT 63 U/L (5-55)
[2024-06-20 09:44] LABS: AFP Tumor Marker 2.7 ng/mL (<8.1)
== END 2024-06-19 12:32 | disposition home or self-care (01) ==
LOC: NCHCN 12:31
PROVIDERS: PCP Nurse Practitioner Family; Visit Provider Nurse Practitioner Family
DX: K74.60 Unspecified cirrhosis of liver (principal); E11.9 Type 2 diabetes mellitus without complications; E03.9 Hypothyroidism, unspecified
CPT/HCPCS: 80053; 82306; 81003; 81015; 82043; 82105; 82570; 82607; 82977; 83036; 83735; 84443; 85025; 85610

== ENCOUNTER 2024-06-27 13:42 | Outpatient (CLI) | payer MEDICARE, MEDICAID, SELFPAY ==
--- NOTE | 2024-06-27 | DI.RAD_ITS ---
Exam(s) XR CHEST 2V PA LATERAL EXAM: XR CHEST 2V PA LATERAL CLINICAL HISTORY: COUGH, UNSPECIFIED TYPE R05.9 TECHNIQUE: 2D digital imaging was performed. Two views. COMPARISON: No exams were available for comparison FINDINGS: HEART: Normal size. Aorta: Not dilated. PULMONARY VASCULATURE: Normal. MEDIASTINUM: Unremarkable. LUNGS: Left basilar scarring again noted, otherwise clear. PLEURAL SPACE: No pleural effusion or pneumothorax. BONE:Unremarkable for age. Sternal wires. SOFT TISSUES: Unremarkable. IMPRESSION: No acute abnormality. DATA REPOSITORY: RADIATION DOSE DELIVERED:
== END 2024-06-27 14:02 ==
PROVIDERS: PCP Nurse Practitioner Family; Visit Provider Physician Assistant Medical
DX: R05.9 Cough, unspecified (principal)
CPT/HCPCS: 71046

== ENCOUNTER 2024-07-31 15:01 | Emergency (ER) | payer MEDICARE, MEDICAID, SELFPAY ==
[2024-07-31 15:02] VITALS: BP 128/83; PULSE 98; RESP 18; TEMP 36.4; O2SAT 96
--- NOTE | 2024-07-31 15:15 | DI.CT_ITS ---
Exam(s) CT THORACIC LUMBAR SPINE WO CT CHEST WO EXAM: CT CHEST WO CLINICAL HISTORY: Fall, R. rib strike. TECHNIQUE: Imaging protocol: Axial computed tomography images were obtained and coronal and sagittal reformatted images were created and reviewed. Lung Computer Aided Detection (CAD) was utilized. COMPARISON: CT CHEST WITH CONTRAST from 12/25/[address] THORACIC LUMBAR SPINE WO from 07/31/2024 FINDINGS: Tracheobronchial tree: Patent where visualized. No bronchiectasis is present. Pulmonary parenchyma: There is atelectasis or scarring in the lung bases. No focal consolidating inf iltrates are seen. No architectural distortion. Mediastinum and Shana: No dominant adenopathy or fluid collection. The esophagus is unremarkable. Thyroid gland: Unremarkable. Pleura: No effusion or pneumothorax. Heart: The heart is not dilated. Coronary artery calcifications are present. No pericardial effusion . Aorta: Thoracic aorta non-dilated. Atherosclerotic calcification is present. Upper abdomen: There is a bowel malrotation. This is a normal variant. Lymph nodes: Within normal limits. Soft tissues: Unremarkable. Bones:Within normal limits for the patient's age. There is a nondisplaced fracture of the right 11th rib. CT scan of the thoracic spine: Arthritic changes are seen throughout the thoracic spine.. No acute f ractures or subluxations are present. CT scan of the lumbar spine: There is a mildly displaced fractures of the right transverse processes of the L1 and L2 vertebra. IMPRESSION: 1. No acute pulmonary process. 2. No pleural effusion or pneumothorax. 3. Nondisplaced fracture of the right 11th rib. 4. Mildly displaced fractures of the right transverse processes of the L1 and L2 vertebra. RADIATION DOSE DELIVERED: 192.28mGy.cm Total DLP 192.28mGy.cm Total DLP DATA REPOSITORY: All CT scans at this facility are submitted to the National Radiology Data Registry (NRDR) Dose Index Registry (DIR) with the [employer] (A[employer]). RADIATION OPTIMIZATION: All CT scans at this facility use at least one of these dose optimization te chniques: automated exposure control; mA and/or kV adjustment per patient size (includes targeted exa ms where dose is matched to clinical indication); or iterative reconstruction.
--- NOTE | 2024-07-31 15:19 | W.ED.GENAD ---
Discharge Plan Disposition Patient Disposition: Home Condition: Stable Discharge Details Clinical Impression: Fall, Fracture of right eleventh rib, Fracture of transverse process of lumbar vertebra Primary Care Provider: Noemi Sharma ED Provider: Elana Swann Home Meds and New Rx's Prescriptions: New morphine 15 mg tablet 15 mg PO Q8H PRNQty: 10 0RF No Action albuterol sulfate 90 mcg/actuation HFA aerosol inhaler 2 puff IH QID PRN dapagliflozin propanediol [Farxiga] 10 mg tablet 5 mg PO DAILY acetylcysteine [NAC] 600 mg capsule 600 mg PO DAILY cyanocobalamin (vitamin B-12) 1,000 mcg capsule 1,000 mcg PO DAILY cholecalciferol (vitamin D3) 50 mcg (2,000 unit) capsule 50 mcg PO DAILY trazodone 50 mg tablet See Rx Instructions PO QHS PRN Rx Instructions: as directed orally every day at bedtime PRN; (DME) Blood Glucose Test Strip See Dose Instructions .ROUTE .MEDSUPPLY Qty: 400 5RF Dose Instruction: AC and HS Rx Instructions: AC and HS E11.21 4 times daily One Touch (DME) lancets [BD Ultra Fine Lancets] 33 gauge misc 1 ea Miscellaneous BID Qty: 400 11RF Rx Instructions: E11.9 four time daily testing insulin NPH and regular human 100 unit/mL (70-30) suspension See Rx Instructions SC BID Qty: 60 4RF Dose Instruction: 20 units qAM and 15 units qPM; SC BID; 20 units qAM and 15 units qPM SC BID; Rx Instructions: 35 units BID (DME) nebulizers [Aeroeclipse Reusable BAN] 1 EACH misc 1 ea Miscellaneous Q4H PRN Qty: 1 Rx Instructions: dispense with all accessories (DME) blood-glucose meter 1 EACH misc 1 ea Miscellaneous PRN Qty: 1 Rx Instructions: rely meter or other generic; GLUCOMETER DIAGNOSIS CODE 250.02 (DME) insulin syringe-needle U-100 [BD Insulin Syringe Ultra-Fine] 0.3 mL 31 gauge x 5/16 syringe See Dose Instructions .ROUTE .MEDSUPPLY Qty: 200 5RF Dose Instruction: As directed Rx Instructions: twice daily. E11.9 furosemide 20 mg tablet 20 mg PO DAILY Qty: 90 5RF omeprazole 40 mg capsule,delayed release(DR/EC) 40 mg PO DAILY Qty: 90 4RF escitalopram oxalate 20 mg tablet 20 mg PO DAILY MDD 30 Qty: 90 4RF fluconazole [Diflucan] 150 mg tablet 150 mg PO Q3D Qty: 30 1RF montelukast 10 mg tablet 10 mg PO DAILY fluticasone propionate 50 mcg/actuation Blister With Device 1 inh INHALATION DAILY atorvastatin 20 mg Tablet 20 mg PO DAILY glimepiride 4 mg tablet 4 mg PO BID Patient Comments: TAKE ONE TABLET BY MOUTH TWICE A DAY DIRECTED loratadine 10 mg Tablet 10 mg PO DAILY melatonin 5 mg tablet 5 mg PO QHS Patient Comments: TAKE ONE TO TWO TABLETS BY MOUTH AT BEDTIME Ozempic 1 mg/dose (4 mg/3 mL) pen injector 2 mg SUBCUT QWEEK Patient Comments: INJECT 2 MG INTO THE SKIN ONCE WEEKLY spironolactone 100 mg tablet 50 mg PO DAILY metoprolol succinate 25 mg tablet extended release 24 hr 50 mg PO DAILY Discharge Instructions Instructions: Rib Fracture or Bruised Rib ED Additional Instructions: You were seen in the emergency department today for evaluation after a fall. In our department you had a full physical examination performed and had CT scans that showed a nondisplaced rib fracture as well as a fracture of the transverse process of your lumbar spine. These injuries do not require surgery, but do require aggressive pain management to allow you to move and believes and prevent development of condition such as pneumonia. You were provided with an incentive spirometer, which you should use to maintain good pulmonary hygiene, and you should use multimodal pain control including ice or heat, lidocaine patches, and I provided you with a prescription for morphine. Please follow-up with your primary care provider in the next few days to discuss this visit and any symptoms that change, worsen, or persist. Thank you for allowing us to be part of your care. HPI General Mode of arrival: ambulatory. Date/Time Provider Initiated Documentation: 07/31/24 15:09. Limitations to Documentation: no limitations. Information obtained by: patient, family and old records reviewed. HPI Narrative: This is a 59-year-old female patient with a past medical history significant for restrictive lung disease, hypertension, hyperlipidemia, cirrhosis, and asthma who is presenting for evaluation after a fall. The patient reports that she was walking down her steps to go feed her chickens, and slipped while wearing her barn boots, falling backwards and landing with her right sided back on one of the stairs. She did not strike her head or lose consciousness, was able to walk after the incident, but is having significant pain in her posterior right rib area as well as her mid thoracic back all the way down to her sacrum/tailbone. She reports that she does not take blood thinner medications, did take some Tylenol after this event though she is supposed to avoid NSAIDs and excessive Tylenol due to her history of liver disease as well as her history of GERD and cardiac disease. She reports that she has worsening of her right-sided rib pain when she breathes, and did feel like the wind was knocked out of her. Related Data Home Medications ?Medication ?Instructions ?Recorded ?Confirmed nebulizers (Aeroeclipse Reusable #1 ea 05/22/13 07/31/24 Breath Actuated Nebulizer) blood-glucose meter #1 ea 09/10/14 07/31/24 albuterol sulfate 90 mcg/actuation 2 puff inhalation QID PRN 10/31/17 07/31/24 aerosol inhaler insulin syringe-needle U-100 0.3 #200 ea 06/15/19 07/31/24 mL 31 gauge x 5/16 (BD Insulin Syringe Ultra-Fine) furosemide 20 mg tablet 20 mg PO DAILY #90 tabs 07/23/19 07/31/24 insulin human U-100 NPH-regulr See Rx Instructions subcut BID 11/27/19 07/31/24 70-30 mix 100 unit/mL subcutaneous diabetes #60 mL susp omeprazole 40 mg capsule,delayed 40 mg PO DAILY #90 caps 12/06/19 07/31/24 release blood sugar diagnostic (Blood #400 ea 02/05/20 07/31/24 Glucose Test strips) lancets 33 gauge (BD Ultra Fine #400 ea 02/05/20 07/31/24 Lancets) escitalopram oxalate 20 mg tablet 20 mg PO DAILY #90 tabs 04/22/20 07/31/24 fluconazole 150 mg tablet 150 mg PO Q3D #30 tabs 05/06/20 07/31/24 (Diflucan) montelukast 10 mg tablet 10 mg PO DAILY 08/10/21 07/31/24 atorvastatin 20 mg tablet 20 mg PO DAILY 03/08/22 07/31/24 fluticasone propionate 50 1 inh inhalation DAILY 03/08/22 07/31/24 mcg/actuation blister powder for inhalation glimepiride 4 mg tablet 4 mg PO BID 03/08/22 07/31/24 loratadine 10 mg tablet 10 mg PO DAILY 03/08/22 07/31/24 melatonin 5 mg tablet 5 mg PO QHS 03/08/22 07/31/24 metoprolol succinate 25 mg 50 mg PO DAILY 03/08/22 07/31/24 tablet,extended release 24 hr semaglutide 1 mg/dose (4 mg/3 mL) 2 mg subcut QWEEK 03/08/22 07/31/24 subcutaneous pen injector (Ozempic) spironolactone 100 mg tablet 50 mg PO DAILY 03/08/22 07/31/24 acetylcysteine 600 mg capsule (NAC) 600 mg PO DAILY 06/21/22 07/31/24 cholecalciferol (vitamin D3) 50 50 mcg PO DAILY 06/21/22 07/31/24 mcg (2,000 unit) capsule cyanocobalamin (vitamin B-12) 1,000 mcg PO DAILY 06/21/22 07/31/24 1,000 mcg capsule dapagliflozin propanediol 10 mg 5 mg PO DAILY 06/21/22 07/31/24 tablet (Farxiga) trazodone 50 mg tablet See Rx Instructions PO QHS PRN 06/21/22 07/31/24 morphine 15 mg immediate release 15 mg PO Q8H PRN #10 tabs 07/31/24 tablet Previous Rx's ?Medication ?Instructions ?Recorded insulin syringe-needle U-100 0.3 #200 ea 06/15/19 mL 31 gauge x 5/16 (BD Insulin Syringe Ultra-Fine) furosemide 20 mg tablet 20 mg PO DAILY #90 tabs 07/23/19 insulin human U-100 NPH-regulr See Rx Instructions subcut BID 11/27/19 70-30 mix 100 unit/mL subcutaneous diabetes #60 mL susp omeprazole 40 mg capsule,delayed 40 mg PO DAILY #90 caps 12/06/19 release blood sugar diagnostic (Blood #400 ea 02/05/20 Glucose Test strips) lancets 33 gauge (BD Ultra Fine #400 ea 02/05/20 Lancets) escitalopram oxalate 20 mg tablet 20 mg PO DAILY #90 tabs 04/22/20 fluconazole 150 mg tablet 150 mg PO Q3D #30 tabs 05/06/20 (Diflucan) morphine 15 mg immediate release 15 mg PO Q8H PRN #10 tabs 07/31/24 tablet Allergies Allergy/AdvReac Type Severity Reaction Status Date / Time adhesive Allergy Intermediate Verified 06/21/22 13:14 scopolamine Allergy Intermediate Itchy rash Verified 06/21/22 13:14 amoxicillin Allergy Unknown Verified 06/21/22 13:14 latex Allergy Unknown Verified 06/21/22 13:14 Penicillins Allergy Unknown Verified 06/21/22 13:14 Sulfa (Sulfonamide Allergy Unknown Verified 06/21/22 13:14 Antibiotics) metformin AdvReac Intermediate Diarrhea Verified 06/21/22 13:14 budesonide (From Symbicort) AdvReac Anxiety/Sha Verified 06/21/22 13:14 kiness empagliflozin (From AdvReac Other (See Unverified 06/21/22 13:14 Jardiance) Comment) formoterol fumarate (From AdvReac Anxiety/Sha Verified 06/21/22 13:14 Symbicort) kiness varicella-zoster virus AdvReac Local Verified 06/21/22 13:14 glycoprotein E, recombinant reaction- redness and swelling seasonal Allergy Unknown Uncoded 06/21/22 13:14 General Stated Complaint: Fall/Non TraumaCriteria ROBERTH: 4 Exam Narrative Exam Narrative: Gen: Awake and alert, in no apparent distress HEENT: Non-icteric sclera Neck: Supple Lungs: No apparent respiratory distress, normal respiratory effort. CV: Appears well perfused, heart with regular rate and rhythm, strong distal pulses Abdomen: Non-distended, soft, nontender to palpation without rigidity, rebound, or guarding MSK: Moves 4 extremities without apparent limitation in ROM. The patient has tenderness to palpation over the posterolateral right ribs, no overlying skin changes. Midline spine tenderness at the mid back with no step-offs, as well as right sided flank tenderness to palpation. The patient has full range of motion at the hips with no instability to AP compression of the pelvis, the patient does have reproduction of her right lower back pain with straight leg raise but no radiation of that pain into the leg Skin: Visualized skin without rashes, cyanosis. Neuro: Normal Gait, no obvious focal deficits or facial asymmetry and patient with full strength and sensation distal to this injury. Speaks in full, clear sentences. Psych: Appropriate for situation. Course Vital Signs Vital signs: Vital Signs Temperature 36.4 C L 07/31/24 15:02 Pulse 98 H 07/31/24 15:02 Respiratory Rate 18 07/31/24 15:02 Blood Pressure 128/83 07/31/24 15:02 Pulse Oximetry 96 07/31/24 15:02 Temperature 36.4 C L 07/31/24 15:02 Pulse 98 H 07/31/24 15:02 Respiratory Rate 18 07/31/24 15:02 Blood Pressure 128/83 07/31/24 15:02 Pulse Oximetry 96 07/31/24 15:02 Oxygen Delivery Method Room Air 07/31/24 15:02 Oxygen Flow Rate 0 07/31/24 15:02 Pain Level 8 07/31/24 15:02 Medical Decision Making This is a 59-year-old female patient presenting for evaluation after a fall. My differential includes but is not limited to traumatic injuries including spine fracture, rib fracture, contusion, pulmonary injury including pneumothorax or contusion, certainly considered intra-abdominal and pelvic injury, but the patient reassuringly has no tenderness to palpation of the abdomen, and I have a lower concern for liver laceration, splenic laceration, hemoperitoneum. She has no evidence for neuro deficit to suggest spinal cord injury or spinal nerve root compression, cauda equina, etc. She did not strike her head, and is not anticoagulated, and I have a lower concern for intracranial hemorrhage. This was a mechanical fall, and was not preceded by any medical complaints to increase my concern for syncope, arrhythmia, ACS, etc. I will provide the patient with a Lidoderm patch and morphine for pain management given the limitations in glud-gza-brywdte pain medications with her history. We will obtain a CT image of the T/L-spine, as well as the chest wall, noncontrasted. - I reviewed the patient's CT scans as well as the radiology reads, which show a nondisplaced right 11th rib fracture as well as right sided transverse process fracture of L2 and L3. No other associated injury, and on my repeat examination the patient remained without abdominal tenderness, neurodeficit, or hemodynamic instability. No evidence of underlying lung injury or intra-abdominal injury within the limits of the scan. I counseled the patient on good pulmonary hygiene, and confirmed with orthopedics that this patient is appropriate to follow-up with their primary care doctor for this nonoperative traumatic finding. I did provide her with short course of morphine for severe pain and counseled her on ice and heat as well as lidocaine patches. She was provided with an incentive spirometer, and at this time, the patient has had a full medical evaluation and is safe for discharge to home. They are hemodynamically stable, ambulatory, and tolerating PO. They are understanding of the follow-up plan and return precautions. They left our facility without incident. Elana Swann MD Quality:[facility] Health Related Social Needs: No Data to Display PFSH All Active Problems (Updated 07/31/24 @ 17:34 by Elana Swann MD) Fracture of transverse process of lumbar vertebra (Acute) Fracture of right eleventh rib (Acute) Fall (Acute) Skin infection (Acute) Recurrent cold sores (Acute) Tubular adenoma of colon (Acute) 11/24/18; DR. LI Yeast infection (Acute) Tricuspid insufficiency (Chronic 08/22/14) Sleep disorder (Chronic) Shortness of breath (Chronic 08/02/13) atelectasis; 50% lung function during echo Sacroiliac dysfunction (Chronic 10/22/14) Restrictive lung disease (Chronic 12/11/13) [place] [facility] [place] gastritis (Chronic 09/10/14) Polycystic ovaries (Chronic 01/20/10) Morbid obesity with BMI of 40.0-44.9, adult (Chronic 06/13/17) Lymphedema of limb (Chronic 12/11/13) Hyperlipidemia (Chronic 08/15/12) Hiatal hernia (Chronic 12/25/12) Extremity edema (Acute 12/21/13) Essential hypertension (Chronic 12/11/12) Diabetes mellitus (Chronic 05/22/12) Depressive disorder (Chronic 03/19/08) 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 H/O surgical procedure endometrial biopsy-neg History of esophagogastroduodenoscopy History of surgical procedure Family History Mother , age 64 Diabetes Essential hypertension Heart disease Myocardial infarction Stroke Father , age 70 Heart disease Myocardial infarction Asthma Sister Rheumatoid arthritis Diabetes Essential hypertension Heart disease Brother Rheumatoid arthritis Diabetes Borderline Brother Diabetes Essential hypertension Rheumatoid arthritis Brother Rheumatoid arthritis Diabetes Essential hypertension Brother Rheumatoid arthritis Diabetes Essential hypertension Maternal Grandmother Diabetes Essential hypertension Heart disease Cancer Uncle Heart disease CABG Maternal Grandfather , age 20? Diabetes Colon cancer Paternal Grandfather , appendix at age 36. Cancer Diabetes Paternal Grandmother Stroke Cancer Diabetes Son Depression Social History Smoking/Tobacco Use Status: Former Tobacco Use tobacco type: cigarettes Quit Date: 02/21/95 Second Hand Exposure: Yes Smoking risk assessment performed?: Yes Alcohol Intake: never Drug use: Occasionally Substance use type: marijuana Caregiver/Support person: No Household members: none Communication Needs: None Do you need help understanding health information?: Never current occupation: disabled Pets and animals: No Sexually active: Yes Do you think of yourself as: straight/heterosexual Current gender identity: female What is your relationship status?: How often do you talk on the phone with friends or family?: three or more times per week How often do you get together with friends or relatives?: never How often do you attend confucianist or buddhism services?: decline to answer Do you belong to any clubs or organized social groups?: no Panel score (0-1 are the most socially isolated patients): 1 What type of physical activity do you participate in: walking Duration: < 15 minutes/day Frequency: 5-6 times per week Elda/Mandaeism: Bahai Special elda needs: No Seatbelt use: always Helmet use: No (n/a) Drive intox or ride w/intox dedicated local truck driver: No Do you feel safe at home: Yes Do you feel safe in your relationship?: Yes Victim of physical abuse: No Victim of emotional abuse: Yes Victim of sexual abuse: No Would you like helpful sources: No
[2024-07-31] MEDS: Lidocaine 5% Patch 1 PATCH TP (15:27)
[2024-07-31] MEDS: MORPHine IR 15 MG TAB PO (15:27)
--- NOTE | 2024-07-31 17:00 | RT.EKG_ITS ---
APPROVED REPORT Exam: Resting ECG Reason for Exam: Patient Location: E HR:77 bpm ECG Measurements Heart Rate 77 AXIS OR 171 P 39 QRSd 81 QRS 61 QT 386 T 46 QTc 436 Conclusion Sinus rhythm, rate 77 No interval abnormalities No STEMI No significant changes from priors
--- NOTE | 2024-08-01 08:56 | NUR.NOTE ---
Nursing Note: Pt called because she was seen yesterday and dx with fractured vert in her back and discharged with morphine. Pt took 1 at home but had a reaction to it so was unable to take another. She spoke with Dr Swann who said that she was going to call in another prescription for dilaudid for her for pain management. When the patient called [facility] in [facility] this morning, they told her that they did not receive another prescription for her. I spoke with the pharmacy to confirm and they told me that they have not received a prescription for dilaudid. I gave the note to one of my providers on and asked them to look into and send another prescription for dilaudid if they found that this is what the plan was going to be per Dr. Roque note and then to let me know when it was done so I could call the patient and let her know.
--- NOTE | 2024-08-01 10:11 | W.ED.FU ---
Date of service: 08/01/24 Time of Service: 10:11 Follow Up Plan: Yes patient called and advised that the [facility] would not fill her prescription because she was told that the provider was not affiliated with her insurance which is Medicare Medicaid. I did submit a prescription to the [facility] today which is the pharmacy she preferred. She is following up with her PCP on Tuesday and return precautions given
== END 2024-07-31 17:44 | disposition home or self-care (01) ==
PROVIDERS: Emergency Provider Emergency Medicine; PCP Nurse Practitioner Family
DX: S22.31XA Fracture of one rib, right side, initial encounter for closed fracture (principal); S32.018A Other fracture of first lumbar vertebra, initial encounter for closed fracture; S32.028A Other fracture of second lumbar vertebra, initial encounter for closed fracture; I10 Essential (primary) hypertension; E78.5 Hyperlipidemia, unspecified; E11.9 Type 2 diabetes mellitus without complications; Z79.4 Long term (current) use of insulin; Z79.84 Long term (current) use of oral hypoglycemic drugs; Z79.85 Long-term (current) use of injectable non-insulin antidiabetic drugs; Z87.891 Personal history of nicotine dependence; W01.0XXA Fall on same level from slipping, tripping and stumbling without subsequent striking against object, initial encounter; Y93.K9 Activity, other involving animal care; Y92.017 Garden or yard in single-family (private) house as the place of occurrence of the external cause
CPT/HCPCS: 71250; 93005; 99284; 72128; 72131; 93010

== ENCOUNTER 2025-01-03 12:04 | Outpatient (REF) | payer MEDICARE, SELFPAY, MEDICAID ==
[2025-01-03 16:02] LABS: Abs Immature Grans 0.03 10^3/uL (0.0-0.06); HCT 53.5 % (36.0-46.0); HGB 17.3 g/dL (11.2-15.7); Immature Grans % 0.3 %; MCH 28.6 pg (27.0-33.0); MCHC 32.3 % (32.0-36.0); MCV 89 fL (80-95); MPV 10.9 fL (8.0-11.0); Platelet Count 341 10^3/uL (130-400); RBC 6.04 10^6/uL (3.93-5.22); RDW 14.6 % (11.7-14.6); RDW-SD 45.9 fL; WBC 10.70 10^3/uL (4.4-10.8)
[2025-01-03 18:13] LABS: ALT 32 U/L (10-49); AST 26 U/L (<34); Albumin 4.5 g/dL (3.4-5.0); Alkaline Phosphatase 166 U/L (46-116); Anion Gap 10.7 mmol/L (3-11); BUN 14 mg/dL (9-23); Bilirubin, Total 0.70 mg/dL (0.2-1.2); CO2 22.3 mmol/L (20.0-31.0); Calcium 9.8 mg/dL (8.3-10.6); Chloride 109 mmol/L (98-107); Glucose 187 mg/dL (74-106); Potassium 4.8 mmol/L (3.5-5.1); Sodium 142 mmol/L (136-145); Total Protein 6.8 g/dL (5.7-8.2)
[2025-01-03 18:15] LABS: GGT 60 U/L (<38)
== END 2025-01-03 12:05 | disposition home or self-care (01) ==
LOC: NCHCN 12:04
PROVIDERS: PCP Nurse Practitioner Family; Visit Provider Nurse Practitioner Family
DX: K74.60 Unspecified cirrhosis of liver (principal)
CPT/HCPCS: 80053; 82977; 85025; 85730